=== PATIENT | female | born 2000 | race Caucasian/White ===

== ENCOUNTER 2021-02-03 11:42 | Observation (INO) | payer SELFPAY ==
[2021-02-03 12:08] VITALS: BP 112/53; PULSE 70
[2021-02-03 12:15] VITALS: BP 113/60; PULSE 99
[2021-02-03 12:30] VITALS: BP 107/55; PULSE 73
[2021-02-03 12:38] LABS: Add Urine Microscopic? YES; Amorphous Sediment Urine Few; Appearance Urine Cloudy (Clear); Bacteria Urine Trace /hpf; Bilirubin Urine Negative (Negative); Blood Urine Negative (Negative); Color Urine Yellow (Yellow); Glucose Urine UA Negative (Negative); Ketones Urine Negative (Negative); Leukocyte Esterase Ur 3+ LEU/UL (NEGATIVE); Mucus Urine Rare /lpf; Nitrate Urine Negative (Negative); Protein Urine 1+ mg/dL (Negative); Specific Grav Ur 1.011 (1.001-1.035); Squamous Epithelial Cell Urine Many /hpf (Few); Urobilinogen Urine Negative mg/dL (<2.0); WBC Urine 31-50 /hpf (0-3)
[2021-02-03 12:45] VITALS: BP 96/59; PULSE 80
[2021-02-03 13:00] VITALS: BP 101/59; PULSE 76
[2021-02-03 13:06] VITALS: BMI 21.7
[2021-02-03 13:15] VITALS: BP 102/57; PULSE 83
--- NOTE | 2021-02-03 13:41 | PC.NURSE ---
ncervix is closed and soft
--- NOTE | 2021-02-05 10:50 | P.PNOB_ITS ---
OB - Triage/Final Diagnosis Visit Information Reason for evaluation: threatened labor Comments/Additional reasons for admission: I have assessed the risk for this patient, Lorri Ernandez, and determined that she would benefit from observation care. Evaluation Laboratory results: Laboratory Tests 02/03/21 12:17 Urine Color Yellow Urine Appearance Cloudy H Urine pH 9.0 Ur Specific [place] 1.011 Urine Protein 1+ H Urine Glucose (UA) Negative Urine Ketones Negative Ur Blood (Man) Negative Urine Nitrate Negative Urine Bilirubin Negative Urine Urobilinogen Negative Ur Leukocyte Esterase 3+ H Urine RBC 3-5 H Urine WBC 31-50 H Ur Squamous Epith Cells Many H Amorphous Sediment Few H Urine Bacteria Trace Urine Mucus Rare
== END 2021-02-03 13:34 | disposition home or self-care (01) ==
PROVIDERS: Admitting Provider Obstetrics & Gynecology; Visit Provider Obstetrics & Gynecology Gynecology
DX: O47.9 False labor, unspecified (principal); Z3A.00 Weeks of gestation of pregnancy not specified
CPT/HCPCS: 81001; 87086; G0378; G0379

== ENCOUNTER 2021-02-07 09:58 | Outpatient (RCR) | payer OTHER, SELFPAY ==
[2021-02-07 11:29] LABS: Hematocrit 28.4 % (37.0-47.0); Hemoglobin 9.3 g/dL (12.0-15.0)
[2021-02-07 11:44] LABS: Glucose 1 Hour PP 50gm Dose 134 mg/dL
[2021-02-07 12:08] LABS: Vitamin D 25 Hydroxy 28.8 ng/mL
[2021-02-07 12:21] LABS: HIV 1/2 Ab P24 Ag Result Negative (Negative)
[2021-02-07] MEDS: RHO(D) IMMUNE GLOBULIN 300 MCG/2 ML SYRINGE IM (16:24)
== END 2021-05-08 23:59 | disposition home or self-care (01) ==
LOC: ANHLAB 09:58
PROVIDERS: Visit Provider Obstetrics & Gynecology Gynecology
DX: Z29.13 Encounter for prophylactic Rho(D) immune globulin (principal); Z11.4 Encounter for screening for human immunodeficiency virus [HIV]; O36.0130 Maternal care for anti-D [Rh] antibodies, third trimester, not applicable or unspecified; Z3A.00 Weeks of gestation of pregnancy not specified
CPT/HCPCS: 36415; 82306; 82947; 85014; 85018; 85461; 86703; 90384; 96372; G0432; J2790

== ENCOUNTER 2021-02-15 10:51 | Observation (INO) | payer OTHER, SELFPAY ==
--- NOTE | ~2021-02-15 | US_ITS ---
EXAMINATION: US OB limited w BPP DATE: 02/15/2021 14:01 INDICATION: Decelerations during third trimester TECHNIQUE: Real-time pelvic ultrasound was performed. The interpreting radiologist was not present fo r the study. COMPARISON: None. FINDINGS: There is a single living fetus in vertex presentation. The placenta is anterior. heart rate is 149 beats per minute (bpm). The amniotic fluid index is 19.5 cm which is normal (normal range: 9.2 cm to 23.1 cm). Biophysical profile performed by the technologist: breathing (30 sec sustained breathing in 30 minutes): 2 out of 2 movement (3 gross body movements in 30 minutes): 2 out of 2 tone (one episode of ornelip-irjyxltfo-jdblppi limb movement): 2 out of 2 Amniotic fluid pocket (2 cm): 2 out of 2 Total score: 8 out of 8 IMPRESSION: 1. Single living fetus in vertex presentation. 2. Biophysical profile 8 out of 8. 3. Normal amniotic fluid index. Reviewed, dictated and finalized at location B.
[2021-02-15 11:00] VITALS: TEMP 37.2
[2021-02-15 11:13] VITALS: BP 111/62; PULSE 98
[2021-02-15 11:15] VITALS: BP 104/57; PULSE 98
[2021-02-15 11:30] VITALS: BP 116/69; PULSE 113
[2021-02-15 11:45] VITALS: BP 115/61; PULSE 108
[2021-02-15 12:00] VITALS: BP 119/60; PULSE 97
[2021-02-15 12:43] LABS: Add Urine Microscopic? YES; Amorphous Sediment Urine Few; Appearance Urine Cloudy (Clear); Bacteria Urine Trace /hpf; Bilirubin Urine Negative (Negative); Blood Urine Negative (Negative); Color Urine Yellow (Yellow); Glucose Urine UA Negative (Negative); Ketones Urine Negative (Negative); Leukocyte Esterase Ur 3+ LEU/UL (Negative); Mucus Urine Rare /lpf; Nitrate Urine Negative (Negative); Protein Urine Negative (Negative); RBC Urine 0-2 /hpf (0-2); Specific Grav Ur 1.013 (1.001-1.035); Squamous Epithelial Cell Urine Few /hpf (Few); WBC Urine 16-20 /hpf
--- NOTE | 2021-02-15 13:35 | PC.NURSE ---
1324- called,read lab results and informed of wondering baseline and questionable decel. JOHNY and BPP ordered.
--- NOTE | 2021-02-15 14:43 | OBADM ---
This patient, Lorri Ernandez, admitted to the OB room OB Post 116 for observation. Patient/family oriented to hospital policies and general routines including ID bracelet, bed and alarms, visiting hours, pain management, procedures, bathroom and other care routines, personal items, smoking policy, room service/diet, and visiting hours. Patient/Family are encouraged to report perceived risks to care and to ask questions if they do not understand what they are told or what they should do.
--- NOTE | 2021-02-28 09:32 | PM.OBTRLD ---
OB - Triage/Final Diagnosis Visit Information Comments/Additional reasons for admission: I have assessed the risk for this patient, Lorri Ernandez, and determined that she would benefit from observation care. Evaluation Laboratory results: Laboratory Tests 02/15/21 12:23 Urine Color Yellow Urine Appearance Cloudy H Urine pH 7.0 Ur Specific [place] 1.013 Urine Protein Negative Urine Glucose (UA) Negative Urine Ketones Negative Ur Blood (Man) Negative Urine Nitrate Negative Urine Bilirubin Negative Urine Urobilinogen 2.0 H Leukocyte Esterase Rfl 3+ H Urine RBC 0-2 Urine WBC 16-20 H Ur Squamous Epith Cells Few Amorphous Sediment Few H Urine Bacteria Trace Urine Mucus Rare Final Diagnosis (1) contractions: Code(s): O47.00 - False labor before 37 completed weeks of gestation, unspecified trimester Status: Acute
== END 2021-02-15 14:55 | disposition home or self-care (01) ==
PROVIDERS: Admitting Provider Obstetrics & Gynecology; Visit Provider Obstetrics & Gynecology
DX: O60.00 Preterm labor without delivery, unspecified trimester (principal); Z3A.00 Weeks of gestation of pregnancy not specified
CPT/HCPCS: 76815; 76819; 81001; 87086; G0378; G0379

== ENCOUNTER 2021-02-18 07:04 | Outpatient (CLI) | payer OTHER, SELFPAY ==
[2021-02-18 07:42] LABS: Glucose Fasting Gestational 77 mg/dL (>/=95)
== END 2021-02-18 07:05 | disposition home or self-care (01) ==
LOC: ANHLAB 07:07
PROVIDERS: Visit Provider Obstetrics & Gynecology
DX: Z34.90 Encounter for supervision of normal pregnancy, unspecified, unspecified trimester (principal); Z3A.00 Weeks of gestation of pregnancy not specified
CPT/HCPCS: 36415; 82951; 82952

== ENCOUNTER 2021-03-11 12:24 | Outpatient (CLI) | payer OTHER, SELFPAY ==
--- NOTE | ~2021-03-11 | US_ITS ---
US right upper quadrant DATE: 03/11/2021 12:44 INDICATION: Right upper quadrant abdominal pain TECHNIQUE: Real-time imaging and Doppler analysis of the liver, pancreas, gallbladder areas COMPARISON: None FINDINGS: No hepatic space-occupying mass lesion is evident. Normal hepatopedal portal venous flow di rection. A several millimeter fixed filling defect of the gallbladder is likely a small polyp. No mobile galls tones are noted. Negative sonographic Adames's sign. The common bile duct measures 3 mm, normal. The pancreas appears unremarkable. Moderately prominent right hydronephrosis; gravid patient. IMPRESSION: Moderately prominent right-sided hydronephrosis, likely due to gravid state. Less likely consideration in the differential diagnosis would be an obstructing ureteral calculus Small gallbladder polyp; otherwise unremarkable examination Reviewed, dictated and finalized at Location A. Reviewed, dictated and finalized at location A. IMPRESSION: Moderately prominent right-sided hydronephrosis, likely due to grav id state. Less likely consideration in the differential diagnosis would be an o bstructing ureteral calculus Small gallbladder polyp; otherwise unremarkable examination
== END 2021-03-11 12:25 ==
PROVIDERS: Visit Provider Obstetrics & Gynecology Gynecology
DX: R10.11 Right upper quadrant pain (principal); N13.30 Unspecified hydronephrosis; K82.4 Cholesterolosis of gallbladder
CPT/HCPCS: 76705

== ENCOUNTER 2021-03-23 12:23 | Observation (INO) | payer SELFPAY ==
[2021-03-23] VITALS (92 sets, daily range): BP systolic 90–116; BP diastolic 41–71; PULSE 25–278; TEMP 36.6–37.1; O2SAT 96–100; BMI 23.2
--- NOTE | 2021-03-23 13:11 | OBADM ---
This patient, Lorri Ernandez, admitted to the OB room 117 for observation for contractions. Patient/family oriented to hospital policies and general routines including ID bracelet, bed and alarms, visiting hours, pain management, procedures, bathroom and other care routines, personal items, smoking policy, room service/diet, and visiting hours. Patient/Family are encouraged to report perceived risks to care and to ask questions if they do not understand what they are told or what they should do.
[2021-03-23 13:22] LABS: Add Urine Microscopic? YES; Appearance Urine Cloudy (Clear); Bacteria Urine Trace /hpf; Bilirubin Urine Negative (Negative); Blood Urine Negative (Negative); Color Urine Yellow (Yellow); Glucose Urine UA Negative (Negative); Ketones Urine Negative (Negative); Leukocyte Esterase Ur 3+ LEU/UL (Negative); Mucus Urine Rare /lpf; Nitrate Urine Negative (Negative); Protein Urine 1+ mg/dL (Negative); Specific Grav Ur 1.018 (1.001-1.035); Squamous Epithelial Cell Urine Many /hpf (Few); WBC Urine 31-50 /hpf
--- NOTE | 2021-03-23 13:52 | PC.NURSE ---
Dr. Johnson returned page and informed of pt's arrival at 34 2/7 wks gestation with c/o contractions since 0500 today. Denies leakage of fluid and vaginal bleeding. Informed of contraction pattern that pt rates as a 9 out of 10. Discussed pt's history of tachycardia. Orders received.
[2021-03-23] MEDS: NIFEdipine 10 MG CAPSULE PO ×3 (14:08→15:25)
--- NOTE | 2021-03-23 15:45 | PC.NURSE ---
Dr. Johnson on unit and informed pt still carolyn, but intensity has decreased from a 9 to a 5. Reviewed UA results and pt c/o urinary frequency. Informed pt c/o headache since Procardia. Orders received.
[2021-03-23] MEDS: ACETAMINOPHEN 500 MG TABLET 1000 MG PO (15:50)
[2021-03-23] MEDS: NITROFURANTOIN MONOHYD MACROCR 100 MG CAP PO (15:51)
--- NOTE | 2021-03-23 17:25 | PC.NURSE ---
Dr. Johnson returned page and informed of increase in contractions when pt sat up. Orders received for IV hydration.
[2021-03-23] MEDS: DEXTROSE 5%/LACTATED RINGERS 1,000 ML 999 ML IV CONT (18:10)
--- NOTE | 2021-03-23 20:07 | PC.NURSE ---
Dr. Johnson returned page and informed of decrease in contractions since IV fluids. Pt no longer feeling any contractions and has been sleeping. Order for discharge received.
--- NOTE | 2021-05-19 12:12 | P.PNOB_ITS ---
OB - Triage/Final Diagnosis Visit Information Comments/Additional reasons for admission: I have assessed the risk for this patient, Lorri Ernandez, and determined that she would benefit from observation care. Evaluation Laboratory results: Laboratory Tests 03/23/21 12:56 Urine Color Yellow Urine Appearance Cloudy H Urine pH 6.0 Ur Specific [place] 1.018 Urine Protein 1+ H Urine Glucose (UA) Negative Urine Ketones Negative Ur Blood (Man) Negative Urine Nitrate Negative Urine Bilirubin Negative Urine Urobilinogen 4.0 H Leukocyte Esterase Rfl 3+ H Urine RBC 6-10 H Urine WBC 31-50 H Ur Squamous Epith Cells Many H Urine Bacteria Trace Urine Mucus Rare Final Diagnosis (1) contractions: Code(s): O47.00 - False labor before 37 completed weeks of gestation, unspecified trimester Status: Acute
== END 2021-03-23 20:44 | disposition home or self-care (01) ==
PROVIDERS: Admitting Provider Obstetrics & Gynecology; Visit Provider Obstetrics & Gynecology
DX: O47.03 False labor before 37 completed weeks of gestation, third trimester (principal); Z3A.34 34 weeks gestation of pregnancy
CPT/HCPCS: 81001; 87086; 96360; 96361; A9270; G0378; G0379; J7121

== ENCOUNTER 2021-03-27 19:00 | Observation (INO) | payer SELFPAY ==
[2021-03-27 19:18] VITALS: BP 122/69; PULSE 94
[2021-03-27 19:30] VITALS: BP 110/67; PULSE 100; BMI 22.9
[2021-03-27 19:45] VITALS: BP 112/70; PULSE 91
--- NOTE | 2021-03-27 19:55 | OBADM ---
This patient, Lorri Ernandez, admitted to the OB room OB Post 113 for observation. Patient/family oriented to hospital policies and general routines including ID bracelet, bed and alarms, visiting hours, pain management, procedures, bathroom and other care routines, personal items, smoking policy, room service/diet, and visiting hours. Patient/Family are encouraged to report perceived risks to care and to ask questions if they do not understand what they are told or what they should do.
[2021-03-27 20:00] VITALS: BP 112/70; PULSE 97
[2021-03-27 20:15] VITALS: BP 105/62; PULSE 90
[2021-03-27 20:46] VITALS: BP 99/42; PULSE 74
--- NOTE | 2021-04-04 08:17 | PM.OBTRLD ---
OB - Triage/Final Diagnosis Visit Information Reason for evaluation: threatened labor Comments/Additional reasons for admission: I have assessed the risk for this patient, Lorri Berger Awais, and determined that she would benefit from observation care.
== END 2021-03-27 20:55 | disposition home or self-care (01) ==
PROVIDERS: Admitting Provider Obstetrics & Gynecology Gynecology; Visit Provider Obstetrics & Gynecology Gynecology
DX: O47.9 False labor, unspecified (principal); Z3A.00 Weeks of gestation of pregnancy not specified
CPT/HCPCS: 84112; G0378; G0379

== ENCOUNTER 2021-04-07 17:31 | Observation (INO) | payer SELFPAY ==
[2021-04-07 20:10] VITALS: BMI 23.8
--- NOTE | 2021-04-07 20:10 | OBADM ---
This patient, Lorri Ernandez, admitted to the OB room Labor/Delivery/Recovery 107 for observation at 1731. Patient/family oriented to hospital policies and general routines including ID bracelet, bed and alarms, visiting hours, pain management, procedures, bathroom and other care routines, personal items, smoking policy, room service/diet, and visiting hours. Patient/Family are encouraged to report perceived risks to care and to ask questions if they do not understand what they are told or what they should do.
== END 2021-04-07 20:20 | disposition home or self-care (01) ==
PROVIDERS: Admitting Provider Obstetrics & Gynecology Gynecology; Visit Provider Obstetrics & Gynecology Gynecology
DX: O47.03 False labor before 37 completed weeks of gestation, third trimester (principal); Z3A.36 36 weeks gestation of pregnancy
CPT/HCPCS: G0378; G0379

== ENCOUNTER 2021-04-10 20:09 | Observation (INO) | payer OTHER, SELFPAY ==
--- NOTE | 2021-04-10 20:09 | OBADM ---
This patient, Lorri Ernandez, admitted to the OB room Labor/Delivery/Recovery 107 for observation. Patient/family oriented to hospital policies and general routines including ID bracelet, bed and alarms, visiting hours, pain management, procedures, bathroom and other care routines, personal items, smoking policy, room service/diet, and visiting hours. Patient/Family are encouraged to report perceived risks to care and to ask questions if they do not understand what they are told or what they should do.
[2021-04-10 22:41] VITALS: BMI 23.8
[2021-04-10 22:51] VITALS: RESP 18
== END 2021-04-10 22:51 | disposition home or self-care (01) ==
PROVIDERS: Admitting Provider Obstetrics & Gynecology; Visit Provider Obstetrics & Gynecology
DX: O47.03 False labor before 37 completed weeks of gestation, third trimester (principal); Z3A.36 36 weeks gestation of pregnancy
CPT/HCPCS: G0378; G0379

== ENCOUNTER 2021-04-28 06:20 | Inpatient (IN) | payer OTHER, SELFPAY ==
[2021-04-28] VITALS (113 sets, daily range): BP systolic 101–146; BP diastolic 60–106; PULSE 65–160; RESP 16–18; TEMP 36.5–37.2; O2SAT 76–100; BMI 23.3
[2021-04-28 07:08] LABS: Basophils Absolute Auto 0.1 K/mm3 (0.0-0.1); Basophils Percent Auto 0.5 % (0.2-1.2); Eosinophils Absolute Auto 0.1 K/mm3 (0-0.3); Eosinophils Percent Auto 1.2 % (0-4.4); Hematocrit 28.5 % (37.0-47.0); Immature Granulocyte Absolute 0.13 K/mm3 (0.00-0.031); Immature Granulocyte Percent A 1.2 % (0-0.5); Lymphocytes Absolute Auto 2.21 K/mm3 (0.9-3.2); Lymphocytes Percent Auto 19.6 % (18.3-44.2); Mean Corpuscular HGB Conc 31.6 g/dl (32-36); Mean Corpuscular Hemoglobin 25.3 pg (26-34); Mean Corpuscular Volume 80.1 fl (80-100); Mean Platelet Volume 8.8 fl (7.4-10.4); Monocytes Absolute Auto 1.1 K/mm3 (0.1-0.6); Monocytes Percent Auto 9.5 % (2.6-8.5); Neutrophils Absolute Auto 7.7 K/mm3 (1.3-6.7); Platelet Count Result 340 k/mm3 (150-375); Red Blood Count 3.56 M/mm3 (4.2-5.4); Red Cell Distribution Width 14.7 % (11.5-14.5); White Blood Count 11.3 K/mm3 (4.5-10.0)
[2021-04-28] MEDS: OXYTOCIN 30 UNITS/NS 500 ML 30 UNITS/500 ML BAG 6 UNITS IV CONT ×2 (07:13→14:45)
[2021-04-28] MEDS: LACTATED RINGERS 1,000 ML 125 ML IV CONT ×2 (07:14→07:51)
--- NOTE | 2021-04-28 07:27 | WPDOBADMIT ---
Obstetrics - Admit Note Admission Note: record reviewed. No pertinent additions to the history and/or any subsequent changes in the physical findings that are not consistent with the expected course of the were found. Additions to the history and/or subsequent changes in the physical findings follow. None. Admitted for MIL. Cervix 4-5/50/-2 AROM with clear fluid. FHTs reactive.
[2021-04-28] MEDS: OXcarbazepine 150 MG TABLET PO ×2 (08:01→21:34)
--- NOTE | 2021-04-28 08:36 | WPDANESEPPF ---
Anes - Initial Pre Proc Eval Procedure: labor epidural Date/Time: 04/28/21 08:36 Surgeon: Zo Merchant MD Pre Op Diagnosis: labor pain Pre Op Diagnosis: induction Patient Data Age: 20 Gender: F Height: 1.59 m Weight: 59 kg Last Vital Signs Pulse 75 04/28/21 08:30 BP 135/89 04/28/21 08:30 Pulse Ox 100 04/28/21 08:35 Allergies Allergy/AdvReac Type Severity Reaction Status Date / Time ceftriaxone [From Rocephin] Allergy Numbness Verified 02/07/21 16:24 Penicillins Allergy Swelling Verified 02/07/21 16:24 of Lip/Tongue/Throat Home Medications Medication Instructions Recorded Confirmed Type PNV cmb#95-ferrous fumarate-FA 1 tablet PO DAILY 03/23/21 04/01/21 History [] ferrous sulfate 325 mg PO HS 03/23/21 04/01/21 History oxcarbazepine 150 mg PO BID 03/23/21 04/01/21 History Laboratory Tests 04/28/21 04/28/21 04/28/21 06:56 06:56 06:56 WBC 11.3 K/mm3 H K/mm3 (4.5-10.0) RBC 3.56 M/mm3 L M/mm3 (4.2-5.4) Hgb 9.0 g/dL L g/dL (12.0-15.0) Hct 28.5 % L % (37.0-47.0) MCV 80.1 fl fl (80-100) MCH 25.3 pg L pg (26-34) MCHC 31.6 g/dl L g/dl (32-36) RDW 14.7 % H % (11.5-14.5) Plt Count 340 k/mm3 k/mm3 (150-375) MPV 8.8 fl fl (7.4-10.4) Immature Gran % (Auto) 1.2 % H % (0-0.5) Neut % (Auto) 68.0 % % (45.5-73.1) Lymph % (Auto) 19.6 % % (18.3-44.2) [place] % (Auto) 9.5 % H % (2.6-8.5) Eos % (Auto) 1.2 % % (0-4.4) Baso % (Auto) 0.5 % % (0.2-1.2) Lymph # (Auto) 2.21 K/mm3 K/mm3 (0.9-3.2) [place] # (Auto) 1.1 K/mm3 H K/mm3 (0.1-0.6) Eos # (Auto) 0.1 K/mm3 K/mm3 (0-0.3) Baso # (Auto) 0.1 K/mm3 K/mm3 (0.0-0.1) Abs Immat Gran (auto) 0.13 K/mm3 H K/mm3 (0.00-0.031) Absolute Neuts (auto) 7.7 K/mm3 H K/mm3 (1.3-6.7) Absolute Nucleated RBC 0.0 K/mm3 K/mm3 (0.0-0.012) Nucleated RBC % 0.0 % % (0.0-0.2) RPR Pending Blood Type A Negative Antibody Screen Negative Patient hx anesthesia problems: none Family hx anesthesia problems: none PMFSH Past Medical History Medical History (Updated 04/28/21 @ 08:36 by Danny Dey DO) Epilepsy POTS (postural orthostatic tachycardia syndrome) early contractions Family History Family History (Updated 04/01/21 @ 15:37 by Bárbara Kumar RN) Sibling Autism Heart murmur Mother Epilepsy Heart murmur Social History Social History Smoking status: Never smoker Second hand tobacco smoke exposure: No Substance use: never Gender identity (if verbalized by the patient): Female Spiritual care concerns: No Anes - Eval Final PreProcedure Day of Procedure 04/28/21 08:36 Patient weight: normal ASA classification: III Anesthesia type and monitoring: regional epidural and standard monitoring Informed Consent: The patient's anesthetic plan and its attendant risks and benefits were discussed with the patient/family/POA. Questions were solicited and answers provided to the satisfaction of the patient/family/POA.
--- NOTE | 2021-04-28 14:15 | PM.OBPRVD ---
OB - Delivery Note Procedure Delivery date: 04/28/21 Procedure: events: Labor Induction Intrapartal events: None Induction method: AROM and per pitocin protocol Delivery monitor: external FHT and external uterine Route of delivery: Laceration Description: Periurethral (B) and Perineal - 1st Degree Delivery repair: vicryl (3-0 ) Specimen: No Quantitative Blood Loss (ml): 225 Anesthesia type: Epidural Disposition: floor Baby Date of : 04/28/21 Weeks of gestation at delivery: 39 gender: Female presentation: vertex position: Right Occiput Anterior Placenta delivery description: Spontaneous cord vessel description: 3 Vessels score one minute: 9 score five minutes: 9
--- NOTE | 2021-04-28 14:16 | P.DS_ITS ---
DS: Admitting Diagnosis Discharge Date 04/30/21 Admitting Diagnosis IUP 39 wks MIL DS: Discharge Diagnosis Discharge Diagnosis (1) (normal spontaneous vaginal delivery): Code(s): O80 - Encounter for full-term uncomplicated delivery Status: Acute OB - DS: Summary OB Procedures : Ultrasound OB Procedures Intrapartum: Spontaneous Vag Delivery OB Procedures: : None Peripartum Data Infant Delivery Method: Natural Vaginal Laceration Description: Periurethral (B) and Perineal - 1st Degree complications: none Status at Discharge Functional status at discharge: independent ambulation Overall status at discharge: patient is progressing back to baseline Time Spent with Patient Time attestation: Total time spent providing and/or coordinating discharge services: DS: Data Data Completed and Pending Labs on day of discharge: Labs from last 24 hours 04/28/21 04/28/21 04/28/21 06:56 06:56 06:56 WBC 11.3 H RBC 3.56 L Hgb 9.0 L Hct 28.5 L MCV 80.1 MCH 25.3 L MCHC 31.6 L RDW 14.7 H Plt Count 340 MPV 8.8 Immature Gran % (Auto) 1.2 H Neut % (Auto) 68.0 Lymph % (Auto) 19.6 [place] % (Auto) 9.5 H Eos % (Auto) 1.2 Baso % (Auto) 0.5 Lymph # (Auto) 2.21 [place] # (Auto) 1.1 H Eos # (Auto) 0.1 Baso # (Auto) 0.1 Abs Immat Gran (auto) 0.13 H Absolute Neuts (auto) 7.7 H Absolute Nucleated RBC 0.0 Nucleated RBC % 0.0 RPR Pending Blood Type A Negative Antibody Screen Negative Discharge Plan Discharge Attending physician on discharge: Zo Merchant Discharging Clinician: Zo Merchant Anticipated Discharge Date/Time: 04/30/21 14:17 Patient Disposition: Home, Self-Care Activity: may shower and pelvic rest Diet: regular Patient Instructions: Antibiotic Form Stand Alone Forms: General Discharge Information Follow-up/Referrals: Zo Merchant MD [Physician] - 6 Weeks Discharge Medications: Continued oxcarbazepine 150 mg Tablet 150 mg PO BID RF: 0 PNV cmb#95-ferrous fumarate-FA [] 28 mg iron- 800 mcg Tablet 1 tablet PO DAILY RF: 0 ferrous sulfate 325 mg (65 mg iron) Tablet 325 mg PO HS RF: 0 Date of admission: 04/28/21 06:20 Primary Care Provider: PHYSICIAN,BUSINESS OFFICE SPECIALIST Admitting Provider: Zo Merchant Attending physician on admission: Zo Merchant Condition: Stable Care Plan Goals: Follow up at week 3 for Nexplanon
[2021-04-28] MEDS: COSYNTROPIN 0.25 MG/ML VIAL 0.75 MG IV PUSH (15:00)
--- NOTE | 2021-04-28 16:53 | OBPPTRN ---
Patient transferred to post room # 281 via wheelchair. Support person present. Oriented to unit, room, information board, rooming in, admission packet and security measures. Patient verbalizes understanding. PT received instructions and education this shift via one to one discussion, mom baby care guide and demonstration. mom and spouse both recipients of such instructions and no barriers to learning identified at this time.
[2021-04-28] MEDS: ACETAMINOPHEN 325 MG TABLET 650 MG PO (18:31)
[2021-04-28] MEDS: POLYSACCHARIDE IRON COMPLEX 150 MG CAPSULE PO (18:32)
[2021-04-28] MEDS: BENZOCAINE 20% AER SPR (*SP) 56 GM CAN 1 SPRAY TOPICAL (18:32)
[2021-04-28] MEDS: WITCH HAZEL 40 PADS 1 PAD TOPICAL (18:32)
[2021-04-28] MEDS: IBUPROFEN 600 MG TABLET PO (18:33)
[2021-04-28] MEDS: DOCUSATE SODIUM 100 MG CAPSULE PO (18:33)
[2021-04-29] MEDS: IBUPROFEN 600 MG TABLET PO ×3 (03:55→17:48)
[2021-04-29 04:27] LABS: Hematocrit 24.1 % (37.0-47.0); Hemoglobin 7.7 g/dL (12.0-15.0)
[2021-04-29 04:42] VITALS: BP 102/60; PULSE 80; RESP 18; TEMP 36.6; O2SAT 98
--- NOTE | 2021-04-29 07:16 | PM.OBPNVD ---
OB - PN: Subj Subjective Date/time seen: 04/29/21 07:16 Patient comments: no complaints and pain well controlled baby status: doing well OB - PN: Obj Data Labs CBC & Chem 7: 04/29/21 03:48 Labs: Laboratory Results - last 24 hr 04/28/21 04/29/21 04/29/21 06:56 03:48 03:48 Hgb 7.7 L Hct 24.1 L Blood Type A Negative A Negative Antibody Screen Negative Negative Screen Negative Baby's Blood Type O pos Baby's CHRIS Negative Doses of RhIg Required 1 OB - PN A/P Plan day: 1 Plan: routine care Time Spent With Patient Time: Total time spent is greater than 50% in coordination of care (as documented) at patient's floor/unit and/or counseling patient: Exam : Bimanual exam- vagina & uterus: other (Uterus firm, nt @U)
[2021-04-29 08:20] VITALS: BP 118/67; PULSE 76; RESP 18; TEMP 36.4; O2SAT 100
--- NOTE | 2021-04-29 09:15 | PC.NURSE ---
Mother called out for assist with feeding. Mother reports infant is sleepy and makes eager attempts to latch with short bursts of nursing and will then fall asleep. Mother reports she has been attempting for 10-15 minutes without success. Reviewed feeding cues, frequencies, duration of feedings, feeding elimination flow sheet, and signs of adequate intake. Demonstrated stimulation techniques to wake infant for feeding. Assisted with to breast. Reviewed positioning/alignment in cross cradle, holding breast in ?U? hold and guided asymmetrical latch on. Reviewed rational for each. able to latch correctly within a few attempts. Once latched made a weak effort to suckle with a few short draws and then fell asleep with nipple in mouth. Infant stimulated to wake with to return to breast with same results. Several attempts to wake to latch without latch. has not fed for 6+ hours, parents are concerned. Feeding options reviewed to supplement 10-15 mls or have mother pump and give EBM + formula if needed. Parents would like infant fed at this time and mother will pump for next feeding if needed. Instructed mother to call out for RN assistance if she is unable to latch for feeding or she has discomfort with nursing. Instructed feeding should be initiated three hours from start of last feeding or if feeding cues are noted before. Mother voiced understanding of information shared.
[2021-04-29] MEDS: MULTIVIT/MIN/PREN/FOL AC/IRON TABLET 1 TAB PO (09:28)
[2021-04-29] MEDS: POLYSACCHARIDE IRON COMPLEX 150 MG CAPSULE PO ×2 (09:28→17:48)
[2021-04-29] MEDS: OXcarbazepine 150 MG TABLET PO ×2 (09:28→21:37)
[2021-04-29] MEDS: DOCUSATE SODIUM 100 MG CAPSULE PO ×2 (09:28→17:48)
--- NOTE | 2021-04-29 09:40 | PC.NURSE ---
Mother would like to use her breastpump from home. Instructions given on breast pump care and usage, pumping schedule, nipple care, and collection and storage of breast milk. Encouraged [id number], breast massage and manual expression to stimulate supply. Assessed patient for correct flange size, placement and draw. Patient verbalizes and demonstrates understanding of instructions. Suggested mother use hospital pump for correct flange size, mother will use next feeding.
--- NOTE | 2021-04-29 09:46 | WPDANLDPN2 ---
Anes-Prog Note L&D Date/Time: 04/29/21 09:46 Comfortable throughout: labor and delivery Neuraxial method: epidural Epidural/Spinal procedure site: clean & non-tender Neuro status: Neuro function grossly intact. Cardiovascular status: normal Respiratory status: normal Airway patency: baseline Mental status: baseline Post-Op hydration status: normal Vital Signs: Last Vital Signs Temp 36.4 C 04/29/21 08:20 Pulse 76 04/29/21 08:20 Resp 18 04/29/21 08:20 BP 118/67 04/29/21 08:20 Pulse Ox 100 04/29/21 08:20 Pain score (VAS): 7/10 Post-procedural complaints: other (Headache- Bilateral temporal headache 7/10 sitting up, 10/10 lying flat. Photophopia. ) Patient feedback: Patient satisfied with anesthetic care. 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 Pt instructed to contact the anesthesia department if she wishes to proceed with epidural blood patch Other findings: Discussed epidural blood patch vs conservative treatment for suspected PDPH
[2021-04-29 10:40] LABS: Rapid Plasma Reagin Non-Reactive (NonReactive)
[2021-04-29] MEDS: RHO(D) IMMUNE GLOBULIN 300 MCG/2 ML SYRINGE IM (11:29)
[2021-04-29 12:34] VITALS: BP 113/60; PULSE 82; RESP 16; TEMP 37.3; O2SAT 99
--- NOTE | 2021-04-29 14:30 | P.PCNANE_ITS ---
Anes - Epidural Blood Patch PN Date/Time: 04/29/21 14:30 Consent: I have discussed with the patient/family/POA, the rationale of a lumbar epidural autologous blood patch for the treatment of post-dural puncture headache (spinal headache), including associated potential risks, benefits, comp lications and side effects. I have also discussed more conservative treatment options such as intravenous hydration, caffeine and non-prescription analgesics. The patient/family/POA, understand(s) and wish(es) to proceed with epidural autologous blood patch as treatment for the patient's post-dural puncture headache. Time-Out: A pre-procedural Time-Out was completed immediately before starting the procedure and confirmed: Patient Identification, Site, Procedure, Patient Position and the Availability of Requisite Equipment. Clinical Indications: PDPH Epidural Insertion Note Patient position: sitting Skin prep: chlorhexidine Needle: 18 gauge Tuohy-Schliff Technique: loss of resistance Skin anesthesia: lidocaine 1% Observations: tolerated well Complications: none
--- NOTE | 2021-04-29 15:37 | PC.NURSE ---
Assisted mother with a pump thru her insurance, set up and reviewed. Mother is unable to sit up to pump at this time. Instructed to attempt to have RN asses for 21 or 24mm flanges, advised to bere lanolin to nipples and areola before pumping. Instructions given on breast pump care and usage, pumping schedule, nipple care, and collection and storage of breast milk. Encouraged [id number], breast massage and manual expression to stimulate supply.
[2021-04-29 19:46] VITALS: BP 111/65; PULSE 81; RESP 16; TEMP 36.6; O2SAT 100
--- NOTE | 2021-04-29 21:40 | PC.NURSE ---
Patient viewed the discharge video Mother & Baby Care, The First Two Weeks . Patient was given the opportunity and encouraged to ask questions. Patient verbalized understanding of information shared and has been given the mother/baby guide for home reference.
--- NOTE | 2021-04-30 09:25 | PM.OBPNVD ---
OB - PN: Subj Subjective Date/time seen: 04/30/21 09:25 Patient comments: no complaints and pain well controlled baby status: doing well OB - PN: Obj Data Labs CBC & Chem 7: 04/29/21 03:48 Labs: Laboratory Results - last 24 hr 04/28/21 04/29/21 06:56 03:48 RPR Non-reactive Blood Type A Negative Antibody Screen Negative Screen Negative Baby's Blood Type O pos Baby's CHRIS Negative Doses of RhIg Required 1 OB - PN A/P Plan day: 2 Plan: routine care, discharge home and other (Nexplanon at week 3) Time Spent With Patient Time: Total time spent is greater than 50% in coordination of care (as documented) at patient's floor/unit and/or counseling patient: Exam : Bimanual exam- vagina & uterus: other (Uterus firm, nt @U)
[2021-04-30] MEDS: MULTIVIT/MIN/PREN/FOL AC/IRON TABLET 1 TAB PO (09:33)
[2021-04-30] MEDS: POLYSACCHARIDE IRON COMPLEX 150 MG CAPSULE PO (09:33)
[2021-04-30] MEDS: OXcarbazepine 150 MG TABLET PO (09:34)
[2021-04-30 09:35] VITALS: BP 126/82; PULSE 82; RESP 16; TEMP 36.8; O2SAT 100
[2021-05-03 09:31] VITALS: BP 118/74; PULSE 90; RESP 16; TEMP 37.3; O2SAT 100
== END 2021-04-30 12:57 | disposition home or self-care (01) | DRG 807 ==
LOC: ANHLDR 14:17 → ANHOB2 16:58
PROVIDERS: Admitting Provider Obstetrics & Gynecology Gynecology; Visit Provider Obstetrics & Gynecology Gynecology
DX: O99.354 Diseases of the nervous system complicating childbirth (principal); Z37.0 Single live birth; Z3A.39 39 weeks gestation of pregnancy; G40.909 Epilepsy, unspecified, not intractable, without status epilepticus; O70.0 First degree perineal laceration during delivery; O71.82 Other specified trauma to perineum and vulva; O89.4 Spinal and epidural anesthesia-induced headache during the puerperium
CPT/HCPCS: 36415; 85014; 85018; 85025; 85461; 86592; 86850; 86900; 86901; 90384; A9270; J0834; J2590; J2790; J2795; J7120

== ENCOUNTER 2021-10-21 18:43 | Emergency (ER) | payer OTHER, BC, SELFPAY ==
--- NOTE | ~2021-10-21 | XR_ITS ---
XR shoulder LT min 2V, XR scapula LT 10/21/2021 20:05 Indication: Left shoulder pain after trauma Procedure: 4 views left shoulder and 2 views left scapula Comparison: No prior studies for comparison. Findings: No fracture, subluxation or dislocation. No significant soft tissue abnormality. No foreign bodies. Impression: 1: No acute bone or joint abnormality. Reviewed, dictated and finalized at location A. [facility] Impression: 1: No acute bone or joint abnormality. Impression: 1: No acute bone or joint abnormality.
[2021-10-21 18:50] VITALS: BP 131/77; PULSE 86; RESP 18; TEMP 36.6; O2SAT 100
[2021-10-21] MEDS: CYCLOBENZAPRINE HCL 10 MG TABLET PO (20:13)
[2021-10-21] MEDS: KETOROLAC (*BKC) 60 MG/2 ML VIAL IM (20:13)
--- NOTE | 2021-10-21 20:18 | PC.NURSE ---
Flexril and toradol adm as ordered. No other complaints at this time.
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
[2021-10-21 21:12] VITALS: BP 102/78; PULSE 62; RESP 18; O2SAT 98
== END 2021-10-21 21:12 | disposition home or self-care (01) ==
PROVIDERS: Emergency Provider Emergency Medicine; PCP Hospitalist
DX: S46.812A Strain of other muscles, fascia and tendons at shoulder and upper arm level, left arm, initial encounter (principal); G40.909 Epilepsy, unspecified, not intractable, without status epilepticus; I49.8 Other specified cardiac arrhythmias; W51.XXXA Accidental striking against or bumped into by another person, initial encounter
CPT/HCPCS: 73010; 73030; 96372; 99283; A9270; J1885

== ENCOUNTER 2022-07-10 12:08 | Emergency (ER) | payer OTHER, SELFPAY ==
--- NOTE | ~2022-07-10 | CT_ITS ---
EXAMINATION: CT brain wo con DATE: 07/10/2022 15:03 INDICATION: Head injury with laceration at the right forehead TECHNIQUE: Computed tomography (CT) of the head was performed without intravenous contrast. Sagittal and coronal reconstructions were performed. Dose Antoine The dose-length product was 605.33 mGy-cm. COMPARISON: None FINDINGS: Small shallow skin laceration in the supraorbital right forehead. No fracture. No acute intracranial hemorrhage, acute infarction or abnormal extra axial fluid collection. Ventricles are normal and symm etric. No mass/mass effect. Moderate mucosal thickening the bilateral ethmoid and maxillary sinuses, the latter with additional dependently layering fluid. At the left maxilla sinus this surrounds an 8 mm higher attenuation nodular region which could represent a polyp or mucous retention cyst. The orbi ts and mastoid air cells are normal. IMPRESSION: 1. Small shallow skin laceration to right forehead. No fracture or acute intracranial process. 2. Sinus disease. Reviewed, dictated and finalized at location A. [employer] IMPRESSION: 1. Small shallow skin laceration to right forehead. No fracture or acute intrac ranial process. 2. Sinus disease.
[2022-07-10 12:21] VITALS: BP 132/70; PULSE 88; RESP 16; TEMP 36.7; O2SAT 100
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
== END 2022-07-10 16:05 | disposition home or self-care (01) ==
PROVIDERS: Emergency Provider Emergency Medicine; PCP Hospitalist
DX: S01.81XA Laceration without foreign body of other part of head, initial encounter (principal); G40.909 Epilepsy, unspecified, not intractable, without status epilepticus; W20.8XXA Other cause of strike by thrown, projected or falling object, initial encounter
CPT/HCPCS: 12011; 70450; 99284

== ENCOUNTER 2022-11-07 08:47 | Outpatient (CLI) | payer BC, MEDICAID, SELFPAY ==
--- NOTE | ~2022-11-07 | XR_ITS ---
EXAMINATION: XR hysterosalpingogram DATE: 11/07/2022 12:54 INDICATION: To the opacity TECHNIQUE: Multiple fluoroscopic images were obtained during contrast infusion into the endometrial c anal of the uterus by the primary physician. Fluoroscopy exposure time was 0.3 minutes. A total of 3 images were recorded. FINDINGS: The retroverted uterine cavity demonstrates normal morphology. The fallopian tubes are normal in benjy iber and patent bilaterally. There is normal spillage of contrast into the peritoneum on both sides. IMPRESSION: 1. Normal hysterosalpingogram. Reviewed, dictated and finalized at location A.
[2022-11-07 10:38] LABS: Beta HCG Quantitative < 2.39 mIU/ML
== END 2022-11-07 08:48 | disposition home or self-care (01) ==
PROVIDERS: PCP Hospitalist; Visit Provider Obstetrics & Gynecology Gynecology
DX: Z31.49 Encounter for other procreative investigation and testing (principal)
CPT/HCPCS: 36415; 58340; 74740; 84702; Q9966

== ENCOUNTER → 2022-12-04 08:22 | Outpatient (CLI) | payer BC, SELFPAY ==
--- NOTE | ~2022-12-04 | US_ITS ---
Pelvic ultrasound. Clinical History: Ovarian cyst Technique: Realtime transabdominal and transvaginal scanning of the pelvis was performed. Color flow Doppler and Doppler spectral analysis were performed. Findings: The uterus is anteverted, retroflexed. The endometrial stripe has a thickness of 6 mm. No focal mass is identified. The right ovary measures 4.4 x 1.9 x 3.9 cm. No significant right ovarian or adnexal mass is seen. The left ovary measures 2.7 x 1.7 x 2.5 cm. No significant left ovarian or adnexal mass is seen. There is no evidence of free fluid in the cul de sac. Impression: Unremarkable pelvic ultrasound. Reviewed, dictated and finalized at location . Impression: Unremarkable pelvic ultrasound.
== END ==
PROVIDERS: PCP Obstetrics & Gynecology Gynecology; Visit Provider Obstetrics & Gynecology Gynecology
DX: N83.209 Unspecified ovarian cyst, unspecified side (principal)
CPT/HCPCS: 76856

== ENCOUNTER 2022-12-20 07:56 | Emergency (ER) | payer OTHER, BC, MEDICAID, SELFPAY ==
[2022-12-20 07:59] VITALS: BP 111/64; PULSE 82; RESP 16; TEMP 36.6; O2SAT 100
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
[2022-12-20] MEDS: ACETAMINOPHEN 500 MG TABLET 1000 MG PO (08:34)
[2022-12-20] MEDS: diphenhydrAMINE HCl CAP 25 MG CAPSULE PO (08:35)
[2022-12-20] MEDS: METOCLOPRAMIDE HCL INJ 10 MG/2 ML VIAL IM (08:36)
== END 2022-12-20 09:40 | disposition home or self-care (01) ==
PROVIDERS: Emergency Provider Emergency Medicine; PCP Obstetrics & Gynecology Gynecology
DX: S06.0X0A Concussion without loss of consciousness, initial encounter (principal); G43.909 Migraine, unspecified, not intractable, without status migrainosus; G40.909 Epilepsy, unspecified, not intractable, without status epilepticus; V49.50XA Passenger injured in collision with unspecified motor vehicles in traffic accident, initial encounter
CPT/HCPCS: 96372; 99283; A9270; J2765

== ENCOUNTER 2023-02-08 15:07 | Outpatient (CLI) | payer BC, MEDICAID, SELFPAY ==
--- NOTE | ~2023-02-08 | US_ITS ---
Please refer to report dated 02/08/2023 for details. Reviewed, dictated and finalized at location []
--- NOTE | ~2023-02-08 | US_ITS ---
Pelvic ultrasound. Clinical History: First trimester , uncertain dates Technique: Realtime transabdominal scanning of the pelvis was performed. Color flow Doppler and Doppl er spectral analysis were performed. Findings: The uterus is anteverted. There is diamniotic, dichorionic twin intrauterine gestation. Fet us a (left-sided) demonstrates crown-rump length of 2 mm, consistent with estimated gestational age o f 5 weeks 5 days, and associated heart rate of 109 bpm. Fetus B (right-sided) demonstrates crown-rump length of 4 mm, consistent with estimated gestational age of 6 weeks 0 days, and associated heart ra te of 107 bpm. Yolk sac is present in each of the gestational sacs. The right ovary measures 3.1 x 1.6 x 3.3 cm. No significant right ovarian or adnexal mass is seen. The left ovary measures 3.9 x 1.7 x 2.2 cm. No significant left ovarian or adnexal mass is seen. There is no evidence of free fluid in the cul de sac. Impression: Live twin diamniotic, dichorionic intrauterine gestations, as detailed above. Reviewed, dictated and finalized at location . Impression: Live twin diamniotic, dichorionic intrauterine gestations, as detailed above.
== END 2023-02-08 15:08 ==
LOC: MICIMG 15:08
PROVIDERS: PCP Obstetrics & Gynecology Gynecology; Visit Provider Obstetrics & Gynecology Gynecology
DX: Z36.87 Encounter for antenatal screening for uncertain dates (principal)
CPT/HCPCS: 76801; 76802

== ENCOUNTER → 2023-02-15 14:14 | Outpatient (CLI) | payer BC, MEDICAID, SELFPAY ==
--- NOTE | ~2023-02-15 | US_ITS ---
EXAMINATION: US OB limited DATE: 02/15/2023 14:37 INDICATION: viability assessment, term TECHNIQUE: Real-time ultrasound of the pelvis was performed. The interpreting radiologist was not pre sent for the study. COMPARISON: 02/08/2023 FINDINGS: There are two intrauterine gestational sacs by a thick membrane. There is a 2.7 x 1.3 x 1.7 cm hypoechoic area anterior to the right gestational sac extending somewhat into the cleft between the two gestational sacs. . The yolk sacs are visualized cardiac activity is noted. Fe madhu heart rate is 141 beats per minute (bpm) for baby A and 143 bpm for baby B. IMPRESSION: 1. Viable dichorionic, diamniotic twins. 2. Small subchronic hematoma. Reviewed, dictated and finalized at location L.
== END ==
PROVIDERS: PCP Obstetrics & Gynecology Gynecology; Visit Provider Obstetrics & Gynecology Gynecology
DX: O36.7 Maternal care for viable fetus in abdominal pregnancy (principal); O99.419 Diseases of the circulatory system complicating pregnancy, unspecified trimester; Z3A.00 Weeks of gestation of pregnancy not specified
CPT/HCPCS: 76815

== ENCOUNTER 2023-02-23 17:57 | Emergency (ER) | payer BC, MEDICAID, SELFPAY ==
[2023-02-23] VITALS (7 sets, daily range): BP systolic 104–120; BP diastolic 53–82; PULSE 82–115; RESP 16; TEMP 36.6; O2SAT 100
[2023-02-23] MEDS: SODIUM CHLORIDE 0.9% IV 1,000 ML 999 ML IV CONT ×2 (18:39)
--- NOTE | 2023-02-23 18:45 | ED.GENADULT ---
HPI - General Adult General Chief complaint: Nausea/Vomiting/Diarrhea Stated complaint: Vomiting and 8 weeks Time Seen by Provider: 02/23/23 18:01 History of Present Illness HPI narrative: 22-year-old female presented emergency department for evaluation of persistent nausea and vomiting. Patient is approximately 8 weeks and has been having nausea and vomiting since 6 weeks of gestation. Patient has had 2 ultrasounds confirming an IUP. Patient has had follow-up with Dr. Merchant. Patient has been taking Zofran without improvement of her nausea and vomiting. Patient states she is able to sip water but does anything she can keep down. Patient denies any associate abdominal pain. Patient denies any vaginal bleeding vaginal discharge or uterine cramping. Related Data Home Medications Medication Instructions Recorded Confirmed ferrous sulfate 325 mg (65 mg 325 mg PO HS 03/23/21 04/01/21 iron) tablet oxcarbazepine 150 mg tablet 150 mg PO BID 03/23/21 04/01/21 vit no.95-ferrous 1 tablet PO DAILY 03/23/21 04/01/21 fumarate 28 mg-folic acid 800 mcg tablet () Allergies Allergy/AdvReac Type Severity Reaction Status Date / Time ceftriaxone [From Rocephin] Allergy Numbness Verified 12/20/22 07:56 Penicillins Allergy Swelling Verified 12/20/22 07:56 of Lip/Tongue/Throat Review of Systems Review of Systems: All systems reviewed & are unremarkable except as noted in HPI and below PMFSH Past Medical History Medical History Epilepsy POTS (postural orthostatic tachycardia syndrome) early contractions PTSD (post-traumatic stress disorder) Family History Family History Sibling Autism Heart murmur Mother Epilepsy Heart murmur Social History Social History Smoking status: Never smoker Second hand tobacco smoke exposure: No Substance use: never Gender identity (if verbalized by the patient): Female Spiritual care concerns: No Exam Narrative: APPEARANCE: Well appearing, no pain, no distress, well-nourished. HEAD: normocephalic, atraumatic. EYES: PERRLA/EOMI, conjunctivae clear. NOSE: Normal no drainage NECK: Supple. No adenopathy, no masses. RESPIRATORY: Airway patent, respirations nonlabored. Clear to auscultation bilaterally, no rales, rhonchi, wheezing. CARDIOVASCULAR: Regular rate and rhythm without murmurs rubs or gallops. ABDOMINAL: Soft, nontender, nondistended, normal bowel sounds MUSCULOSKELETAL: Moves all extremities. Strength/ROM intact, No edema, No calf tenderness. NEURO: Alert. Cranial nerves II through XII intact. Grossly intact SKIN: Warm, dry. Normal Color Course Course Emergency Course: 22-year-old female that is approximately 9 weeks presented the ED for evaluation of persistent nausea and vomiting. Patient was mildly orthostatic when she arrived. Patient's nausea and vomiting was controlled with fluids IV Zofran and IV Reglan. Patient did have some elevated white blood cells and bacteria in her urine with moderate squamous cells, patient denies any urinary symptoms and urine culture was ordered. Patient was tolerating p.o. Patient was encouraged of close follow-up with her primary care physician. All question concerns were addressed. Vital Signs Vital signs: Vital Signs Temperature 97.8 F 02/23/23 17:58 Pulse Rate 94 02/23/23 17:58 Respiratory Rate 16 02/23/23 17:58 Blood Pressure 116/72 02/23/23 17:58 Pulse Oximetry 100 02/23/23 17:58 Oxygen Delivery Room Air 02/23/23 17:58 Temperature 97.8 F 02/23/23 17:58 Pulse Rate 107 H 02/23/23 20:30 Respiratory Rate 16 02/23/23 17:58 Blood Pressure 118/78 02/23/23 20:30 Pulse Oximetry 100 02/23/23 17:58 Oxygen Delivery Room Air 02/23/23 17:58 Medical Deci
[2023-02-23 18:52] LABS: Appearance Urine Cloudy (Clear); Bacteria Urine 1+ /hpf; Bilirubin Urine Negative (Negative); Blood Urine Negative (Negative); Color Urine Dark Yellow (Yellow); Glucose Urine UA Negative (Negative); Ketones Urine 4+ mg/dL (Negative); Leukocyte Esterase Ur 2+ LEU/UL (Negative); Nitrate Urine Negative (Negative); Non Pathogenic Casts 0-2; Protein Urine 1+ mg/dL (Negative); RBC Urine 0-2 /hpf (0-2); Specific Grav Ur 1.026 (1.001-1.035); Squamous Epithelial Cell Urine Moderate /hpf (Few); WBC Urine 21-50 /hpf
[2023-02-23 18:54] LABS: Alanine Aminotransferase 21 U/L (6-35); Albumin Level 4.3 g/dL (3.5-5.1); Alkaline Phosphatase 53 U/L (38-126); Anion Gap 11 mmol/L (8-16); Aspartate Amino Transferase 24 U/L (14-36); Bilirubin,Total 0.4 mg/dL (0.2-1.3); Blood Urea Nitrogen 9 mg/dL (7-17); Calcium 9.3 mg/dL (8.4-10.2); Carbon Dioxide 24 mmol/L (22-30); Chloride 101 mmol/L (98-107); Estimated CRCL calculation 122 ml/min; Estimated Glomerular Filt Rate > 60; Glucose 103 mg/dL (65-110); Lipase 79 U/L (23-300); Potassium 3.5 mmol/L (3.4-5.0); Sodium 136 mmol/L (137-145)
[2023-02-23 19:06] LABS: Add Urine Microscopic? YES
[2023-02-23 19:06] LABS: Basophils Absolute Auto 0.1 K/mm3 (0.0-0.1); Basophils Percent Auto 0.4 % (0.2-1.2); Eosinophils Percent Auto 0.3 % (0-4.4); Hematocrit 34.3 % (37.0-47.0); Hemoglobin 11.2 g/dL (12.0-15.0); Immature Granulocyte Absolute 0.04 K/mm3 (0.00-0.031); Immature Granulocyte Percent A 0.3 % (0-0.5); Lymphocytes Absolute Auto 1.75 K/mm3 (0.9-3.2); Lymphocytes Percent Auto 15.1 % (18.3-44.2); Mean Corpuscular HGB Conc 32.7 g/dl (32-36); Mean Corpuscular Hemoglobin 25.8 pg (26-34); Mean Platelet Volume 9.5 fl (7.4-10.4); Monocytes Absolute Auto 0.7 K/mm3 (0.1-0.6); Monocytes Percent Auto 6.1 % (2.6-8.5); Neutrophils Percent Auto 77.8 % (45.5-73.1); Platelet Count Result 350 k/mm3 (150-375); Red Blood Count 4.34 M/mm3 (4.2-5.4); Red Cell Distribution Width 16.1 % (11.5-14.5); White Blood Count 11.6 K/mm3 (4.5-10.0)
[2023-02-23] MEDS: ONDANSETRON INJ 4 MG/2 ML VIAL IV PUSH (19:06)
[2023-02-23] MEDS: METOCLOPRAMIDE HCL INJ 10 MG/2 ML VIAL IV PUSH (19:06)
[2023-02-23 19:48] LABS: Beta HCG Quantitative > 300000.00 mIU/ML
== END 2023-02-23 21:00 | disposition home or self-care (01) ==
PROVIDERS: Emergency Provider Emergency Medicine; PCP Obstetrics & Gynecology Gynecology
DX: O21.9 Vomiting of pregnancy, unspecified (principal); O99.351 Diseases of the nervous system complicating pregnancy, first trimester; G40.909 Epilepsy, unspecified, not intractable, without status epilepticus; G90.A Postural orthostatic tachycardia syndrome [POTS]; Z3A.09 9 weeks gestation of pregnancy
CPT/HCPCS: 36415; 80053; 81001; 83690; 84702; 85025; 87086; 87088; 96361; 96374; 96375; 99284; J2405; J2765; J7030

== ENCOUNTER 2023-03-09 13:09 | Outpatient (CLI) | payer BC, MEDICAID, SELFPAY ==
--- NOTE | 2023-03-09 | ECG_ITS ---
Measurements Intervals [place] Rate: 95 P: 36 AR: 144 QRS: 75 QRSD: 89 T: 17 QT: 356 QTc: 449 Interpretive Statements SINUS RHYTHM BORDERLINE ST ABNORMALITY- INFERIOR LEADS BORDERLINE ECG NO PREVIOUS ECG AVAILABLE FOR COMPARISON Electronically Signed On 03-09-2023 13:52:42 CDT by Bakari Resendiz D.O.
[2023-03-09 14:05] LABS: Alanine Aminotransferase 22 U/L (6-35); Alkaline Phosphatase 43 U/L (38-126); Anion Gap 12 mmol/L (8-16); Aspartate Amino Transferase 25 U/L (14-36); Bilirubin,Total 0.2 mg/dL (0.2-1.3); Blood Urea Nitrogen 8 mg/dL (7-17); Calcium 8.7 mg/dL (8.4-10.2); Carbon Dioxide 23 mmol/L (22-30); Chloride 102 mmol/L (98-107); Estimated Glomerular Filt Rate > 60; Glucose 90 mg/dL (65-110); Potassium 3.7 mmol/L (3.4-5.0); Sodium 137 mmol/L (137-145)
[2023-03-09 14:33] LABS: Thyroid Stimulating Hormone < 0.015 uIU/mL (0.465-4.680)
[2023-03-09 14:38] LABS: Free T4 Free Thyroxine 3.79 ng/mL (0.78-2.19)
== END 2023-03-09 13:10 | disposition home or self-care (01) ==
LOC: ANHLAB 13:12
PROVIDERS: Visit Provider Obstetrics & Gynecology Gynecology
DX: O99.411 Diseases of the circulatory system complicating pregnancy, first trimester (principal); Z3A.00 Weeks of gestation of pregnancy not specified; R94.31 Abnormal electrocardiogram [ECG] [EKG]
CPT/HCPCS: 36415; 80053; 84439; 84443; 93005

== ENCOUNTER 2023-03-10 11:16 | Emergency (ER) | payer BC, MEDICAID, SELFPAY ==
[2023-03-10 11:17] VITALS: BP 121/70; PULSE 113; RESP 18; TEMP 36.5; O2SAT 100
[2023-03-10] MEDS: SODIUM CHLORIDE 0.9% IV 1,000 ML 999 ML IV CONT ×3 (11:37→16:08)
[2023-03-10] MEDS: ONDANSETRON INJ 4 MG/2 ML VIAL IV PUSH (11:37)
--- NOTE | 2023-03-10 12:34 | ED.GENADULT ---
HPI - General Adult General Chief complaint: Nausea/Vomiting/Diarrhea Stated complaint: nausea and vomiting during - 10 weeks Time Seen by Provider: 03/10/23 11:29 History of Present Illness HPI narrative: 22-year-old female present emergency department for evaluation of persistent nausea and vomiting. Patient is approximately 10 weeks and has had issues with hyperemesis gravidarum. Patient reports she had been taking Zofran with improvement but states that yesterday she did not take her Zofran due to her not having any symptoms then by the time the afternoon all-around she was having worsening Related Data Home Medications Medication Instructions Recorded Confirmed ferrous sulfate 325 mg (65 mg 325 mg PO HS 03/23/21 04/01/21 iron) tablet oxcarbazepine 150 mg tablet 150 mg PO BID 03/23/21 04/01/21 vit no.95-ferrous 1 tablet PO DAILY 03/23/21 04/01/21 fumarate 28 mg-folic acid 800 mcg tablet () Allergies Allergy/AdvReac Type Severity Reaction Status Date / Time ceftriaxone [From Rocephin] Allergy Numbness Verified 03/10/23 11:17 Penicillins Allergy Swelling Verified 03/10/23 11:17 of Lip/Tongue/Throat metoclopramide [From Reglan] AdvReac Mild Rapid Verified 03/10/23 18:39 heart rate Review of Systems Review of Systems: All systems reviewed & are unremarkable except as noted in HPI and below PMFSH Past Medical History Medical History Epilepsy POTS (postural orthostatic tachycardia syndrome) early contractions PTSD (post-traumatic stress disorder) Family History Family History Sibling Autism Heart murmur Mother Epilepsy Heart murmur Social History Social History Smoking status: Never smoker Second hand tobacco smoke exposure: No Substance use: never Gender identity (if verbalized by the patient): Female Spiritual care concerns: No Exam Narrative: APPEARANCE: Ill-appearing HEAD: normocephalic, atraumatic. EYES: PERRLA/EOMI, conjunctivae clear. NOSE: Normal no drainage EARS:TMS clear with good light reflex. THROAT: Pharynx clear, no exudate. NECK: Supple. No adenopathy, no masses. RESPIRATORY: Airway patent, respirations nonlabored. Clear to auscultation bilaterally, no rales, rhonchi, wheezing. CARDIOVASCULAR: Regular rate and rhythm without murmurs rubs or gallops. ABDOMINAL: Soft, nontender, nondistended, normal bowel sounds MUSCULOSKELETAL: Moves all extremities. Strength/ROM intact, No edema, No calf tenderness. NEURO: Alert. Cranial nerves II through XII intact. Grossly intact SKIN: Warm, dry. Normal Color Course Course Emergency Course: 22-year-old female that is 10 weeks presents emerged department for evaluation of nausea and vomiting. Patient did have a mild leukocytosis of 12.3, no elevation in BUN or creatinine. Patient did have +4 urine ketones. Patient did have a glucose of 60 and was treated with p.o. glucose. Patient was tolerating p.o. Patient was treated with 3 L of IV fluids and patient's heart rate did improve. Patient was encouraged to continue to have close follow-up with her primary care physician. Patient denied any urinary symptoms but UA was concerning for a UTI, urine culture is pending and patient was started on Macrobid. Vital Signs Vital signs: Vital Signs Temperature 97.7 F 03/10/23 11:17 Pulse Rate 113 H 03/10/23 11:17 Respiratory Rate 18 03/10/23 11:17 Blood Pressure 121/70 03/10/23 11:17 Pulse Oximetry 100 03/10/23 11:17 Oxygen Delivery Room Air 03/10/23 11:17 Temperature 97.7 F 03/10/23 11:17 Pulse Rate 105 H 03/10/23 16:45 Respiratory Rate 20 03/10/23 16:45 Blood Pressure 107/50 L 03/10/23 16:45 Pulse Oximetry 99 03/10/23 16:45 Oxygen Delivery Room Air 03/10/23 1
[2023-03-10 12:50] LABS: Basophils Absolute Auto 0.1 K/mm3 (0.0-0.1); Basophils Percent Auto 0.5 % (0.2-1.2); Eosinophils Absolute Auto 0.1 K/mm3 (0-0.3); Eosinophils Percent Auto 0.5 % (0-4.4); Hematocrit 37.5 % (37.0-47.0); Hemoglobin 12.2 g/dL (12.0-15.0); Immature Granulocyte Absolute 0.05 K/mm3 (0.00-0.031); Immature Granulocyte Percent A 0.4 % (0-0.5); Mean Corpuscular HGB Conc 32.5 g/dl (32-36); Mean Corpuscular Hemoglobin 26.1 pg (26-34); Mean Corpuscular Volume 80.1 fl (80-100); Mean Platelet Volume 9.7 fl (7.4-10.4); Monocytes Absolute Auto 0.9 K/mm3 (0.1-0.6); Monocytes Percent Auto 6.9 % (2.6-8.5); Neutrophils Percent Auto 73.7 % (45.5-73.1); Platelet Count Result 305 k/mm3 (150-375); Red Blood Count 4.68 M/mm3 (4.2-5.4); White Blood Count 12.3 K/mm3 (4.5-10.0)
[2023-03-10 12:59] LABS: Appearance Urine Turbid (Clear); Bacteria Urine 3+ /hpf; Bilirubin Urine Negative (Negative); Blood Urine Negative (Negative); Color Urine Yellow (Yellow); Glucose Urine UA Negative (Negative); Ketones Urine 4+ mg/dL (Negative); Leukocyte Esterase Ur 3+ LEU/UL (Negative); Nitrate Urine Negative (Negative); Protein Urine Trace mg/dL (Negative); RBC Urine 0-2 /hpf (0-2); Specific Grav Ur 1.018 (1.001-1.035); Squamous Epithelial Cell Urine Many /hpf (Few); WBC Urine 21-50 /hpf; pH Urine 6.5 (5.0-9.0)
[2023-03-10 13:14] LABS: Alanine Aminotransferase 24 U/L (6-35); Albumin Level 4.1 g/dL (3.5-5.1); Alkaline Phosphatase 48 U/L (38-126); Anion Gap 14 mmol/L (8-16); Aspartate Amino Transferase 35 U/L (14-36); Bilirubin,Total 0.6 mg/dL (0.2-1.3); Blood Urea Nitrogen 7 mg/dL (7-17); Calcium 9.1 mg/dL (8.4-10.2); Carbon Dioxide 18 mmol/L (22-30); Chloride 102 mmol/L (98-107); Estimated CRCL calculation 140 ml/min; Estimated Glomerular Filt Rate > 60; Glucose 60 mg/dL (65-110); Potassium 3.7 mmol/L (3.4-5.0); Sodium 134 mmol/L (137-145)
[2023-03-10 13:18] LABS: Add Urine Microscopic? YES
[2023-03-10] MEDS: METOCLOPRAMIDE HCL INJ 10 MG/2 ML VIAL IV PUSH (13:36)
[2023-03-10 14:30] VITALS: BP 107/45; PULSE 115; RESP 20; O2SAT 100
[2023-03-10] MEDS: NITROFURANTOIN MONOHYD MACROCR 100 MG CAP PO (15:13)
[2023-03-10] MEDS: diphenhydrAMINE HCl INJ 50 MG/ML VIAL IV PUSH (15:13)
[2023-03-10 15:41] VITALS: BP 105/42; PULSE 106; RESP 20; O2SAT 99
[2023-03-10 16:45] VITALS: BP 107/50; PULSE 105; RESP 20; O2SAT 99
== END 2023-03-10 16:46 | disposition home or self-care (01) ==
PROVIDERS: Emergency Provider Emergency Medicine; PCP Obstetrics & Gynecology Gynecology
DX: O21.9 Vomiting of pregnancy, unspecified (principal); O23.41 Unspecified infection of urinary tract in pregnancy, first trimester; N39.0 Urinary tract infection, site not specified; Z3A.10 10 weeks gestation of pregnancy
CPT/HCPCS: 36415; 80053; 81001; 81025; 85025; 87086; 96361; 96374; 96375; 99284; A9270; J1200; J2405; J2765; J7030

== ENCOUNTER 2023-03-12 09:07 | Emergency (ER) | payer BC, MEDICAID, SELFPAY ==
[2023-03-12 09:14] VITALS: BP 119/79; PULSE 88; RESP 20; TEMP 36.8; O2SAT 100
--- NOTE | 2023-03-12 09:19 | ECG_ITS ---
Measurements Intervals [place] Rate: 112 P: 60 IA: 147 QRS: 70 QRSD: 98 T: 9 QT: 340 QTc: 466 Interpretive Statements SINUS TACHYCARDIA POSSIBLE LEFT ATRIAL ENLARGEMENT BORDERLINE ST-T WAVE ABNORMALITY- INF/LAT LEADS BASELINE ARTIFACT- V5 ABNORMAL ECG COMPARED TO ECG 03/09/2023 13:42:06 SINUS TACHYCARDIA NOW PRESENT Electronically Signed On 03-12-2023 9:58:23 CDT by Bkaari Resendiz D.O.
--- NOTE | 2023-03-12 09:19 | ED.NAVMDI ---
HPI - Nausea/Vomiting/Diarrhea General Chief complaint: Nausea/Vomiting/Diarrhea Stated complaint: /vomiting Time Seen by Provider: 03/12/23 09:10 History of Present Illness HPI Narrative: 22-year-old female presents to the emergency room today for ongoing problems with nausea and vomiting in . She has had to come to the ER 2 other times in the last couple of weeks for this problem. She is 10 weeks with twins. She has been taking Zofran ODT at home. She was able to eat okay yesterday but her symptoms came back pretty bad yesterday evening. She has also tried taking Benadryl at home but that did not help. She has been having intermittent feelings of shortness of breath. Sometimes she feels pressure in her chest. She says that this started when she started having worsening nausea and vomiting symptoms over the past couple of weeks. Denies having any pain in her chest or back. Denies having any abdominal pain. Related Data Home Medications Medication Instructions Recorded Confirmed ferrous sulfate 325 mg (65 mg 325 mg PO HS 03/23/21 04/01/21 iron) tablet oxcarbazepine 150 mg tablet 150 mg PO BID 03/23/21 04/01/21 vit no.95-ferrous 1 tablet PO DAILY 03/23/21 04/01/21 fumarate 28 mg-folic acid 800 mcg tablet () Allergies Allergy/AdvReac Type Severity Reaction Status Date / Time ceftriaxone [From Rocephin] Allergy Numbness Verified 03/12/23 09:23 Penicillins Allergy Swelling Verified 03/12/23 09:23 of Lip/Tongue/Throat metoclopramide [From Reglan] AdvReac Mild Rapid Verified 03/12/23 09:23 heart rate Review of Systems Review of Systems: CONSTITUTIONAL: Denies fever, chills, or sweats. EYES: Denies visual changes, redness, or discharge. ENT: Denies rhinorrhea, congestion, sore throat, or otalgia. CARDIOVASCULAR: intermittent chest heaviness, no chest pain RESPIRATORY: Intermittent episodes of shortness of breath. no cough or chest congestion GASTROINTESTINAL: as per HPI GENITOURINARY: Denies dysuria or hematuria. SKIN: Denies rash or itching. MUSCULOSKELETAL: Denies back pain, joint pain, or myalgia. NEUROLOGIC: Denies headache, numbness, dizziness, or weakness. PSYCHIATRIC: Denies anxiety or depression. [facility] Past Medical History Medical History Epilepsy POTS (postural orthostatic tachycardia syndrome) early contractions PTSD (post-traumatic stress disorder) Family History Family History Sibling Autism Heart murmur Mother Epilepsy Heart murmur Social History Social History Smoking status: Never smoker Second hand tobacco smoke exposure: No Substance use: never Gender identity (if verbalized by the patient): Female Spiritual care concerns: No Exam Narrative: GENERAL: no acute distress. HEAD: Normocephalic, atraumatic. EYES: PERRL and EOMI. NECK: Supple. No adenopathy or masses. No carotid bruits or JVD CHEST: Clear to auscultation. No respiratory distress. No wheezes rales or rhonchi HEART: Regular rate and rhythm. No murmur heard. Normal peripheral pulses. ABDOMEN: Soft, nontender, nondistended, normal active bowel sounds. EXTREMITIES: Normal range of motion. No edema. SKIN: Warm, dry, no rash. NEURO: No focal deficits. Alert and oriented x3. PSYCH: Normal mood and affect. Course Course Emergency Course: Pt has been tachycardic during visit staying mostly between 100-115 but increases to 130s with activity. Reported improvement in symptoms after fluids and meds. Vital Signs Vital signs: Vital Signs Temperature 36.8 C 03/12/23 09:14 Pulse Rate 88 03/12/23 09:14 Respiratory Rate 20 03/12/23 09:14 Blood Pressure 119/79 03/12/23 09:14 Pulse Oximetry 100 03/12/23 09:14 Oxygen Delivery Room
[2023-03-12] MEDS: MAG HYDROX/AL HYDROX/SIMETH 30 ML UDC PO (09:32)
[2023-03-12] MEDS: SODIUM CHLORIDE 0.9% IV 1,000 ML 999 ML IV CONT (09:32)
[2023-03-12] MEDS: diphenhydrAMINE HCl INJ 50 MG/ML VIAL 25 MG IV PUSH ×2 (09:33→09:48)
[2023-03-12] MEDS: PROCHLORPERAZINE EDISYLATE 10 MG/2 ML VIAL IV PUSH (09:33)
[2023-03-12 09:39] VITALS: BP 120/71; PULSE 102; RESP 20; O2SAT 100
[2023-03-12 09:41] LABS: Basophils Percent Auto 0.3 % (0.2-1.2); Eosinophils Absolute Auto 0.1 K/mm3 (0-0.3); Eosinophils Percent Auto 0.8 % (0-4.4); Hematocrit 35.3 % (37.0-47.0); Hemoglobin 11.5 g/dL (12.0-15.0); Immature Granulocyte Absolute 0.06 K/mm3 (0.00-0.031); Immature Granulocyte Percent A 0.5 % (0-0.5); Lymphocytes Absolute Auto 1.91 K/mm3 (0.9-3.2); Lymphocytes Percent Auto 16.1 % (18.3-44.2); Mean Corpuscular HGB Conc 32.6 g/dl (32-36); Mean Corpuscular Hemoglobin 26.1 pg (26-34); Mean Platelet Volume 9.1 fl (7.4-10.4); Monocytes Absolute Auto 0.7 K/mm3 (0.1-0.6); Monocytes Percent Auto 5.5 % (2.6-8.5); Neutrophils Absolute Auto 9.1 K/mm3 (1.3-6.7); Neutrophils Percent Auto 76.8 % (45.5-73.1); Platelet Count Result 279 k/mm3 (150-375); Red Blood Count 4.41 M/mm3 (4.2-5.4); Red Cell Distribution Width 15.9 % (11.5-14.5); White Blood Count 11.9 K/mm3 (4.5-10.0)
[2023-03-12 09:50] LABS: Alanine Aminotransferase 22 U/L (6-35); Alkaline Phosphatase 50 U/L (38-126); Anion Gap 10 mmol/L (8-16); Aspartate Amino Transferase 24 U/L (14-36); Bilirubin,Total 0.3 mg/dL (0.2-1.3); Blood Urea Nitrogen 5 mg/dL (7-17); Calcium 8.7 mg/dL (8.4-10.2); Carbon Dioxide 22 mmol/L (22-30); Chloride 103 mmol/L (98-107); Estimated CRCL calculation 141 ml/min; Estimated Glomerular Filt Rate > 60; Glucose 76 mg/dL (65-110); Lipase 68 U/L (23-300); Potassium 3.4 mmol/L (3.4-5.0); Sodium 135 mmol/L (137-145)
--- NOTE | 2023-03-12 10:13 | PC.NURSE ---
pt said not able to urinate at this time
[2023-03-12 11:03] LABS: Add Urine Microscopic? YES; Appearance Urine Cloudy (Clear); Bacteria Urine 1+ /hpf; Bilirubin Urine Negative (Negative); Blood Urine Negative (Negative); Color Urine Yellow (Yellow); Glucose Urine UA Negative (Negative); Ketones Urine 2+ mg/dL (Negative); Leukocyte Esterase Ur 3+ LEU/UL (Negative); Nitrate Urine Negative (Negative); Non Pathogenic Casts 0-2; Protein Urine Negative (Negative); RBC Urine 0-2 /hpf (0-2); Specific Grav Ur 1.006 (1.001-1.035); Squamous Epithelial Cell Urine Moderate /hpf (Few); WBC Urine 51-100 /hpf
[2023-03-12] MEDS: DEXTROSE 5%/LACTATED RINGERS 1,000 ML 999 ML IV CONT (11:18)
[2023-03-12 11:20] VITALS: BP 118/64; PULSE 118; RESP 19; O2SAT 100
[2023-03-12] MEDS: ceFAZolin 1 GM/NS 50 ML 1 GM/50 ML BAG IVPB (11:50)
[2023-03-12 11:54] VITALS: BP 118/71; PULSE 110; RESP 17; O2SAT 100
[2023-03-12 12:06] LABS: Lactic Acid Reflex 1.5 mmol/L (0.7-2.0)
[2023-03-12 12:48] VITALS: BP 119/70; PULSE 112; RESP 8; O2SAT 100
[2023-03-12 13:06] VITALS: BP 116/70; PULSE 110; RESP 20; O2SAT 100
== END 2023-03-12 13:08 | disposition home or self-care (01) ==
PROVIDERS: Emergency Provider Nurse Practitioner Family; PCP Obstetrics & Gynecology Gynecology
DX: O23.41 Unspecified infection of urinary tract in pregnancy, first trimester (principal); N39.0 Urinary tract infection, site not specified; O21.9 Vomiting of pregnancy, unspecified; O99.351 Diseases of the nervous system complicating pregnancy, first trimester; G40.909 Epilepsy, unspecified, not intractable, without status epilepticus; O99.891 Other specified diseases and conditions complicating pregnancy; R00.0 Tachycardia, unspecified; Z3A.10 10 weeks gestation of pregnancy; R94.31 Abnormal electrocardiogram [ECG] [EKG]
CPT/HCPCS: 36415; 80053; 81001; 83605; 83690; 85025; 87040; 87086; 93005; 96361; 96365; 96375; 99284; A9270; J0690; J0780; J1200; J7030; J7121

== ENCOUNTER → 2023-03-19 15:06 | Outpatient (CLI) | payer BC, MEDICAID, SELFPAY ==
--- NOTE | ~2023-03-19 | US_ITS ---
EXAMINATION: US OB limited DATE: 03/19/2023 16:08 INDICATION: Subchorionic hematoma during twin TECHNIQUE: Real-time ultrasound of the pelvis was performed. The interpreting radiologist was not pre sent for the study. COMPARISON: 02/15/2023 FINDINGS: The uterus measures 13.4 x 8.0 x 11.1 cm. There are 2 separate intrauterine gestational sacs separate d by a thick membrane consistent with dichorionic diamniotic . A yolk sac and pole a re identified in each gestational sac. Gestational sac A is positioned more caudally and long the lef t than fetus B which is positioned further to the right and more cephalad in the uterus. There is a 2 .3 x 2.1 x 1.4 cm hypoechoic subchorionic hematoma positioned between the 2 gestational sacs. Fetus A heart motion is identified measuring 171 beats per minute (bpm) by M-mode Doppler. Fetus B heart mot ion is identified measuring 168 beats per minute (bpm) by M-mode Doppler. The ovaries are not visuali zed. There is no free fluid in the pelvis. IMPRESSION: 1. Dichorionic, diamnionic with 2 living fetuses. 2. No significant change in a 2.3 x 2.1 x 1.4 cm subchorionic hematoma. Reviewed, dictated and finalized at location B.
== END ==
PROVIDERS: PCP Obstetrics & Gynecology Gynecology; Visit Provider Obstetrics & Gynecology Gynecology
DX: O36.8910 Maternal care for other specified fetal problems, first trimester, not applicable or unspecified (principal); O30.049 Twin pregnancy, dichorionic/diamniotic, unspecified trimester; Z3A.00 Weeks of gestation of pregnancy not specified
CPT/HCPCS: 76815

== ENCOUNTER 2023-07-19 12:29 | Outpatient (RCR) | payer BC, MEDICAID, SELFPAY ==
[2023-07-19 13:57] LABS: Hematocrit 30.9 % (37.0-47.0); Hemoglobin 9.3 g/dL (12.0-15.0)
[2023-07-19 14:10] LABS: Glucose 1 Hour PP 50gm Dose 107 mg/dL
[2023-07-19 14:51] LABS: HIV 1/2 Ab P24 Ag Result Negative (Negative)
[2023-07-19 18:21] LABS: Vitamin D 25 Hydroxy 21.5 ng/mL
[2023-07-22] MEDS: RHO(D) IMMUNE GLOBULIN 300 MCG/2 ML SYRINGE IM (16:44)
== END 2023-10-17 23:59 | disposition home or self-care (01) ==
LOC: ANHLAB 12:29
PROVIDERS: PCP Obstetrics & Gynecology Gynecology; Visit Provider Advanced Practice Midwife
DX: Z11.4 Encounter for screening for human immunodeficiency virus [HIV] (principal); Z29.13 Encounter for prophylactic Rho(D) immune globulin; O36.0190 Maternal care for anti-D [Rh] antibodies, unspecified trimester, not applicable or unspecified; E55.9 Vitamin D deficiency, unspecified; Z3A.00 Weeks of gestation of pregnancy not specified
CPT/HCPCS: 36415; 82306; 82947; 85014; 85018; 85461; 86703; 86850; 86900; 86901; 90384; 96372; G0432; J2790

== ENCOUNTER 2023-10-25 10:29 | Observation (INO) | payer BC, MEDICAID, SELFPAY ==
[2023-10-25] VITALS (7 sets, daily range): BP systolic 107–130; BP diastolic 63–75; PULSE 72–88; RESP 14–20; TEMP 36.2–36.9; O2SAT 99; BMI 20.6
--- NOTE | ~2023-10-25 | MR_ITS ---
MRI of the brain Clinical History: Seizure Technique: Axial and sagittal T1-weighted images were acquired. These were followed by axial T2-weigh celestina, diffusion weighted, gradient, and FLAIR images. Coronal T1-weighted and FLAIR images were perfor med. Following intravenous administration of 10 cc MultiHance gadolinium, T1-weighted fat-sat imaging was performed in the axial, coronal, and sagittal planes. Findings: No abnormal signal seen in the brain parenchyma. No acute infarct, intracranial hemorrhage, or mass lesion. Ventricles and subarachnoid spaces are unremarkable. Orbits are unremarkable. Paranasal sinuses and m astoid air cells are clear. Major intracranial flow voids are intact. Sagittal midline structures are intact. No evidence for mesial temporal sclerosis. No abnormal postcontrast enhancement identified. IMPRESSION: No significant abnormality seen. Reviewed, dictated and finalized at [facility]. SCIENCES MANAGER
--- NOTE | ~2023-10-25 | XR_ITS ---
EXAMINATION: XR chest 2V DATE: 10/25/2023 12:04 INDICATION: Chest pain and seizures TECHNIQUE: frontal and lateral views of the chest were obtained. COMPARISON: None FINDINGS: The lungs are clear with no focal airspace opacities, pulmonary edema, pleural effusion or pneumothor ax. The cardiomediastinal silhouette is normal. Visualized bones and soft tissues are unremarkable. IMPRESSION: 1. No acute cardiopulmonary disease. Reviewed, dictated and finalized at location A. CARE SPECIALIST
--- NOTE | ~2023-10-25 | CT_ITS ---
EXAMINATION: CT brain wo con INDICATION: Seizure COMPARISON: 07/10/2022 TECHNIQUE: Standard unenhanced head CT. The dose-length product (DLP) was 756.67 mGy-cm. The mA was a djusted according to patient size. Iterative reconstruction technique was employed. FINDINGS: No intracranial hemorrhage, acute infarction, or abnormal mass lesion. The ventricles are n ormal. No abnormal mass effect or midline shift. The salas-white matter differentiation is normal. The basal cisterns are patent. The orbits are normal. The paranasal sinuses, mastoids and calvarium are normal. IMPRESSION: 1. No acute intracranial abnormality. Reviewed, dictated and finalized at location L. IT ASSISTANT
--- NOTE | 2023-10-25 10:33 | ECG_ITS ---
Measurements Intervals [place] Rate: 95 P: 54 HI: 141 QRS: 61 QRSD: 96 T: 41 QT: 333 QTc: 419 Interpretive Statements SINUS RHYTHM NORMAL ECG COMPARED TO ECG 03/12/2023 09:47:48 SINUS RHYTHM NOW PRESENT Electronically Signed On 10-25-2023 10:39:56 EQUAL OPPORTUNITY DIRECTOR by Bakari Resendiz D.O.
--- NOTE | 2023-10-25 10:35 | ED.SEIZURE ---
HPI - Seizure General Chief Complaint: Seizure Stated Complaint: seizure History of Present Illness HPI Narrative: Patient is a 23-year-old female with history of POTS, epilepsy here with multiple seizures. Today while she was at work she since that she was going to have a seizure. She states that she had increased pressure in her head and lowered herself to the ground. Bystanders saw her have a seizure for approximately. She states that she has been having a viral-like illness for the last 5 days. 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 She states the majority of these viral symptoms seem to be improving however has had a persistent headache for the last 2 days. She describes it as a migraine-like headache with pressure in her bilateral temples. She was previously on Trileptal, when she started having children she was switched to Lamictal. She was discontinued on all of her anti epileptics approximately 2 months ago because she had been seizure-free for 2 years. She follows with neurology at [facility]. Related Data Home Medications Medication Instructions Recorded Confirmed No Home Medications 10/25/23 10/25/23 Allergies Allergy/AdvReac Type Severity Reaction Status Date / Time ceftriaxone [From Rocephin] Allergy Numbness Verified 03/12/23 09:23 Penicillins Allergy Swelling Verified 03/12/23 09:23 of Lip/Tongue/Throat prochlorperazine Allergy Palpitation Verified 10/25/23 10:39 [From Compazine] s metoclopramide [From Reglan] AdvReac Mild Rapid Verified 03/12/23 09:23 heart rate Review of Systems Review of Systems: All systems reviewed & are unremarkable except as noted in HPI and below PMFSH Past Medical History Medical History (Updated 10/25/23 @ 19:03 by Khadijah Patrick MD) Depression Epilepsy Hyperthyroidism Posttraumatic stress disorder Postural orthostatic tachycardia syndrome In early Surgical History Surgical History (Updated 10/25/23 @ 16:35 by Elvia Bojorquez PA-C) History of section History of eye surgery Family History Family History Sibling Autism Heart murmur Mother Epilepsy Heart murmur Social History Social History (Updated 10/25/23 @ 16:35 by Elvia G Gerling, PA-C) Social History: Surrogate medical decision maker: Loki Ernandez, spouse. Code status: Full code. Smoking status: Never smoker Second hand tobacco smoke exposure: No Alcohol intake: never Substance use: never Do You Feel Safe in your Home?: Yes Lack of Transportation: No Lack of Food: Never True Current Housing: I Have Housing Concerned About Future Housing: No Difficulty Paying Gas/Electric Bills: No Difficulty Paying for Meds: No Currently Unemployed: No Education: High School Diploma/GED Difficulty w/ Childcare or Family Care: No Spiritual care concerns: No Exam Narrative: GENERAL: Well-appearing, well-nourished, and in no acute distress. HEAD: Normocephalic, atraumatic. EYES: PERRLA and EOMI. ENT: Nares clear. Mucous membranes moist. NECK: Supple. CHEST: Clear to auscultation. No respiratory distress. HEART: Regular rate and rhythm. Normal peripheral pulses. ABDOMEN: Soft, nontender, nondistended. EXTREMITIES: Normal range of motion. No edema. SKIN: Warm, dry, no rash. NEURO: No focal deficits. Alert and oriented x3. PSYCH: Normal mood and affect. Course Course Emergency Course: Chart review performed, patient here for seizure-like activity. Triage vitals normal. Last visit in our system was for a twin in February of last year. No prior visits in our system regarding her seizure disorder or syncope, however both epilepsy and POTS are on her medical history in our system. Patient seen evaluated, nontoxic appearing, alert, oriented, no witnessed seizure
[2023-10-25 10:44] LABS: Glucose Point of Care 118 mg/dl (65-105)
[2023-10-25] MEDS: ACETAMINOPHEN 500 MG TABLET 1000 MG PO (11:38)
[2023-10-25 11:47] LABS: Basophils Absolute Auto 0.1 K/mm3 (0.0-0.1); Basophils Percent Auto 1.1 % (0.2-1.2); Eosinophils Absolute Auto 0.3 K/mm3 (0-0.3); Eosinophils Percent Auto 3.4 % (0-4.4); Hematocrit 37.3 % (37.0-47.0); Hemoglobin 11.6 g/dL (12.0-15.0); Immature Granulocyte Absolute 0.05 K/mm3 (0.00-0.031); Immature Granulocyte Percent A 0.6 % (0-0.5); Lymphocytes Absolute Auto 3.07 K/mm3 (0.9-3.2); Lymphocytes Percent Auto 36.1 % (18.3-44.2); Mean Corpuscular HGB Conc 31.1 g/dl (32-36); Mean Corpuscular Hemoglobin 24.7 pg (26-34); Mean Corpuscular Volume 79.5 fl (80-100); Mean Platelet Volume 8.9 fl (7.4-10.4); Monocytes Absolute Auto 0.6 K/mm3 (0.1-0.6); Monocytes Percent Auto 7.4 % (2.6-8.5); Neutrophils Absolute Auto 4.4 K/mm3 (1.3-6.7); Neutrophils Percent Auto 51.4 % (45.5-73.1); Platelet Count Result 311 k/mm3 (150-375); Red Blood Count 4.69 M/mm3 (4.2-5.4); Red Cell Distribution Width 17.2 % (11.5-14.5); White Blood Count 8.5 K/mm3 (4.5-10.0)
[2023-10-25 11:59] LABS: Alanine Aminotransferase 25 U/L (6-35); Albumin Level 4.4 g/dL (3.5-5.1); Alkaline Phosphatase 93 U/L (38-126); Anion Gap 5 mmol/L (8-16); Aspartate Amino Transferase 27 U/L (14-36); Bilirubin,Total 0.2 mg/dL (0.2-1.3); Blood Urea Nitrogen 15 mg/dL (7-17); Calcium 10.1 mg/dL (8.4-10.2); Carbon Dioxide 28 mmol/L (22-30); Chloride 106 mmol/L (98-107); Estimated CRCL calculation 121 ml/min; Estimated Glomerular Filt Rate > 60; Glucose 91 mg/dL (65-110); Magnesium 1.7 mg/dL (1.6-2.3); Potassium 3.9 mmol/L (3.4-5.0); Sodium 139 mmol/L (137-145)
[2023-10-25 12:10] LABS: Troponin I < 0.012 ng/mL (0.000-0.034)
[2023-10-25 12:17] LABS: Appearance Urine Clear (Clear); Bacteria Urine Rare /hpf; Bilirubin Urine Negative (Negative); Blood Urine Negative (Negative); Color Urine Yellow (Yellow); Glucose Urine UA Negative (Negative); Ketones Urine Negative (Negative); Leukocyte Esterase Ur 2+ LEU/UL (Negative); Nitrate Urine Negative (Negative); Non Pathogenic Casts 0-2; Protein Urine Negative (Negative); RBC Urine 0-2 /hpf (0-2); Specific Grav Ur 1.018 (1.001-1.035); Squamous Epithelial Cell Urine Occasional /hpf (Few); Urobilinogen Urine 0.2 mg/dL (<2.0)
[2023-10-25 12:23] LABS: Influenza A QL RT-PCR Negative (Negative); Influenza B QL RT-PCR Negative (Negative); RSV RNA, RT-PCR Negative (Negative); SARS-CoV-2 RNA PCR Negative (Negative)
[2023-10-25 12:29] LABS: Add Urine Microscopic? YES
[2023-10-25] MEDS: levETIRAcetam 1000MG/NACL100ML 1,000 MG/100 ML BAG 400 MG IVPB (12:29)
[2023-10-25 12:31] LABS: Amphetamine Screen Urine Negative (Negative); Barbiturate Screen Urine Negative (Negative); Benzodiazepines Screen Urine Negative (Negative); Cannabinoid Screen Urine Negative (Negative); Cocaine Screen Urine Negative (Negative); Methadone Screen Urine Negative (Negative); Opiate Screen Urine Negative (Negative); Phencyclidine Screen Urine Negative (Negative)
--- NOTE | 2023-10-25 14:00 | PC.NURSE ---
Resting on cart with family at bedside. No further seizure activity since arrival.
--- NOTE | 2023-10-25 15:38 | ADMGEN ---
This patient, Lorri Ernandez, was admitted to [facility] Surg Room 309-01. Patient/family oriented to hospital policies and general routines including ID bracelet, bed and alarms, visiting hours, pain management, procedures, bathroom and other care routines, personal items, smoking policy, room service/diet, and visiting hours. Information on how to activate the Rapid Response Team has been discussed. Patient/Family are encouraged to report perceived risks to care and to ask questions if they do not understand what they are told or what they should do.
--- NOTE | 2023-10-25 16:27 | PM.IMHP ---
H&P: HPI History of Present Illness Date/Time: 10/25/23 16:30 Chief Complaint: Seizure. Narrative: This is a 23-year-old female with history of epilepsy and hyperthyroidism who presented to the emergency department via EMS for evaluation after multiple seizures. Today while work she sensed that she was going to have a seizure; she typically has an aura with feeling of increased pressure in her head. She lowered herself to the ground and bystanders witnessed a 15 second episode of seizure-like activity. She complained of a headache when she came to but goes on to say that she has had a migraine for the last 48 hours or so. 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 She denies fever, chills, sweats, vision changes, chest pain, shortness of breath, nausea, vomiting, diarrhea, and dysuria. She has been sleeping well. No history of alcohol abuse. Of note, she has not had a seizure for 2 years and was taken off of Lamictal by her neurologist. She is also no longer on methimazole and stopped taking that towards the end of her (she has 3 month old twins). Weight has remained stable. No palpitations or sensations of racing heart. In the ED: She was afebrile on arrival with stable vital signs. She tested negative for influenza, RSV, and COVID. CMP was pretty unremarkable. CBC showed a mild, microcytic anemia with a hemoglobin of 11.6 an MCV of 79.5 (this appears chronic). UA was positive for 2+ leukocyte esterase and 11 to 20 WBC. Urine drug screen was negative. Head CT and chest x-ray showed no acute findings. Neurologist was consulted by the ED physician and they recommend starting her on scheduled levetiracetam and admission for MRI and EEG. Review of Systems Review of Systems: Twelve systems were reviewed and are negative except for as per HPI. [facility] Past Medical History Medical History Depression Epilepsy Hyperthyroidism Posttraumatic stress disorder Postural orthostatic tachycardia syndrome In early Surgical History Surgical History History of section History of eye surgery Family History Family History Sibling Autism Heart murmur Mother Epilepsy Heart murmur Social History Social History Social History: Surrogate medical decision maker: Loki Ernandez, spouse. Code status: Full code. Smoking status: Never smoker Second hand tobacco smoke exposure: No Alcohol intake: never Substance use: never Do You Feel Safe in your Home?: Yes Lack of Transportation: No Lack of Food: Never True Current Housing: I Have Housing Concerned About Future Housing: No Difficulty Paying Gas/Electric Bills: No Difficulty Paying for Meds: No Currently Unemployed: No Education: High School Diploma/GED Difficulty w/ Childcare or Family Care: No Spiritual care concerns: No Meds Home Medications and Allergies Home Medications Medication Instructions Recorded Confirmed Type No Home Medications 10/25/23 10/25/23 History Allergies Allergy/AdvReac Type Severity Reaction Status Date / Time ceftriaxone [From Rocephin] Allergy Numbness Verified 03/12/23 09:23 Penicillins Allergy Swelling Verified 03/12/23 09:23 of Lip/Tongue/Throat prochlorperazine Allergy Palpitation Verified 10/25/23 10:39 [From Compazine] s metoclopramide [From Reglan] AdvReac Mild Rapid Verified 03/12/23 09:23 heart rate Vital Signs Vital Signs - 24 hr 10/25/23 10:33 10/25/23 10:41 10/25/23 11:48 Temperature 97.8 F Pulse Rate 72 86 88 Respiratory Rate 18 18 Blood Pressure 127/68 119/69 Pulse Oximetry 99 99 Oxygen Delivery Room Air 10/25/23 14:19 03/0
--- NOTE | 2023-10-25 17:14 | WPDNEURCNPN ---
Assessment and Plan Assessment and plan (1) Breakthrough seizure: Code(s): G40.919 - Epilepsy, unspecified, intractable, without status epilepticus Status: Acute Assessment and Plan: the patient is following with the epilepsy Center at [facility] in the past to have pseudoseizures or nonepileptic seizures versus seizures a consideration. Given the fact she had this morning 2 months after she came off Lamictal outside [facility] for now. We have given her 1000 mg initially and then 500 mg twice a day Plan 1. Continue the Keppra 500 mg twice a day 2. Check her serum calcium magnesium vitamin-D serum B12 and folate and prolactin level if he has any further spell a repeat prolactin level within 20-30 minutes can be helpful 3. I some get to provide support locally however states she follow-up with the epileptologist at [place] was T as previous. Consult date: 10/25/23 Time Seen: 16:45 Reason for consult: seizure disorder HPI: Lorri Ernandez is a 23 year old female history of seizures since age of hospital at [facility] and is on Lamictal. See was transferred over to Adult Services about a year or 2 ago the question of pseudoseizures was raised. See him off Lamictal 2 months ago see was at the time as he was taking the medication. She now has a twin A's 3 months and is breast-feeding. She apparently has had 10 or so seizures since this morning during which there was some twitching of the body patient had not been taking any anticonvulsant. The emergency room physician discussed with me and we decided to go ahead with [facility] for now. The patient does not recall having an EEG in the last 5 years. She is apparently scheduled for video EEG monitoring [facility] epilepsy Center in near future. Review of Systems Review of Systems: All systems reviewed & are unremarkable except as noted in HPI and below PMFSH Past Medical History Medical History (Updated 10/25/23 @ 16:38 by Elvia Bojorquez PA-C) Depression Epilepsy Hyperthyroidism Posttraumatic stress disorder Postural orthostatic tachycardia syndrome In early Surgical History Surgical History (Updated 10/25/23 @ 16:35 by Elvia Bojorquez PA-C) History of section History of eye surgery Family History Family History Sibling Autism Heart murmur Mother Epilepsy Heart murmur Social History Social History (Updated 10/25/23 @ 16:35 by Elvia Bojorquez PA-C) Social History: Surrogate medical decision maker: Loki Ernandez, spouse. Code status: Full code. Smoking status: Never smoker Second hand tobacco smoke exposure: No Alcohol intake: never Substance use: never Do You Feel Safe in your Home?: Yes Lack of Transportation: No Lack of Food: Never True Current Housing: I Have Housing Concerned About Future Housing: No Difficulty Paying Gas/Electric Bills: No Difficulty Paying for Meds: No Currently Unemployed: No Education: High School Diploma/GED Difficulty w/ Childcare or Family Care: No Spiritual care concerns: No Meds Home Medications and Allergies Home Medications Medication Instructions Recorded Confirmed Type No Home Medications 10/25/23 10/25/23 History Allergies Allergy/AdvReac Type Severity Reaction Status Date / Time ceftriaxone [From Rocephin] Allergy Numbness Verified 03/12/23 09:23 Penicillins Allergy Swelling Verified 03/12/23 09:23 of Lip/Tongue/Throat prochlorperazine Allergy Palpitation Verified 10/25/23 10:39 [From Compazine] s metoclopramide [From Reglan] AdvReac Mild Rapid Verified 03/12/23 09:23 heart rate Vital Signs Vital Signs - 24 hr 10/25/23 10:33 10/25/23 10:41 10/25/23 11:48 Temperature 36.6 C Pulse Rate 72 86 88 Respiratory Rate 18 18 Blood Pressure 127/68 119/69 Pulse Oximetry 99 99 Oxygen
[2023-10-25 18:48] LABS: Iron 57 ug/dL (37-170)
[2023-10-25 18:58] LABS: Percent Iron Saturation 12 % (20-50)
[2023-10-25 19:05] LABS: Free T4 Free Thyroxine 0.91 ng/mL (0.78-2.19)
[2023-10-25 20:01] LABS: Folic Acid 6.9 ng/mL (2.76->20)
[2023-10-25] MEDS: levETIRAcetam 500 MG TABLET PO (20:26)
[2023-10-26] VITALS: PULSE 69
[2023-10-26 04:00] VITALS: PULSE 71
[2023-10-26 06:00] VITALS: BP 113/72; PULSE 72; RESP 14; TEMP 36.6; O2SAT 99
[2023-10-26 06:23] LABS: Hematocrit 36.8 % (37.0-47.0); Hemoglobin 11.5 g/dL (12.0-15.0); Mean Corpuscular HGB Conc 31.3 g/dl (32-36); Mean Corpuscular Hemoglobin 25.2 pg (26-34); Mean Corpuscular Volume 80.7 fl (80-100); Platelet Count Result 304 k/mm3 (150-375); Red Blood Count 4.56 M/mm3 (4.2-5.4); Red Cell Distribution Width 17.4 % (11.5-14.5); White Blood Count 8.3 K/mm3 (4.5-10.0)
[2023-10-26 06:49] LABS: Anion Gap 6 mmol/L (8-16); Blood Urea Nitrogen 16 mg/dL (7-17); Calcium 8.9 mg/dL (8.4-10.2); Carbon Dioxide 26 mmol/L (22-30); Chloride 109 mmol/L (98-107); Estimated CRCL calculation 103 ml/min; Estimated Glomerular Filt Rate > 60; Glucose 117 mg/dL (65-110); Magnesium 1.7 mg/dL (1.6-2.3); Potassium 3.7 mmol/L (3.4-5.0); Sodium 141 mmol/L (137-145)
[2023-10-26 08:00] VITALS: PULSE 103; RESP 16; O2SAT 99
--- NOTE | 2023-10-26 08:44 | WPDNEUROPN ---
Progress Note: A&P Assessment and Plan (1) Seizure: Code(s): R56.9 - Unspecified convulsions Status: Acute (2) Breakthrough seizure: Code(s): G40.919 - Epilepsy, unspecified, intractable, without status epilepticus Status: Acute Plan Ms. Ernandez is a 23 year old female with a history of hyperthyroidism and epilepsy presenting for evaluation of seizures. 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 She was recently taken off of Lamictal after being seizure free for 2 years. - Routine EEG done, read is pending - Agree with Keppra 500mg BID for now - Will need to follow-up with her primary neurologist for further characterization of these episodes if they become more frequent with video EEG monitoring - Patient cannot drive or operate heavy machinery until she is seizure free for at least 6 months - Ok to discharge Subjective Date/time seen: 10/26/23 08:44 Interval history: Ms. Ernandez is a 23 year old female with a history of hyperthyroidism and epilepsy presenting for evaluation of seizures. Patient was at work yesterday when she had the episode. She initially felt increased pressure in her head (which is her typical aura). She was able to lower herself to the ground, and reportedly had a 15 second episode of 'seizure-like activity'. She had a headache afterwards. Patient reported that she had been seizure free for 2 years and was taken off of Lamictal by her Neurologist. 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 She is reportedly scheduled for video EEG monitoring at [facility] in the near future. ED work up was unrevealing except UA showed positive LE and WBC. UDS was negative. CT head showed no acute findings. MRI brain was normal. She has been started on Keppra 500mg BID at the recommendation of Dr. Trent. On discussion with patient, she first started having seizures around age 15. She was initially put on Trileptal. This is the only other anti-seizure medication she has been on other than Lamictal. She has a two year old daughter and 3 month old twins. She does report sleep deprivation due to caring for her young children. She works at [employer]. When asked what her seizure look like, patient told me that they have been described as 'grand mal'. She reports that she feels a headache, closes her eyes, puts her head down, and then her arms and RLE shake. She reports that she does not lose consciousness with the episodes. She has been episode free for the past 24 hours. Review of Systems Review of Systems: All systems reviewed & are unremarkable except as noted in HPI and below Exam Const: General: comfortable and no acute distress Eyes: General: appearance normal, both eyes and all related structures Pupils: Equal, round and reactive pupils present EOM: EOMs intact bilaterally Resp: Effort & Inspection: normal respiratory effort Skin: General skin exam: normal color Neuro: Other: Pupils equal and reactive bilaterally, EOMI, face symmetric, facial sensation intact, tongue protrudes midline, palate midline. Shoulder shrug normal. Strength 5/5 throughout. Sensation intact throughout, FNF normal bilaterally. Language comprehension and fluency intact. Gait deferred. Extrem: General: normal to inspection Psych: Mental Status: mental status grossly normal Affect: normal affect Objective Data Vital Signs Vital Signs: Vital Signs - 24 hr 10/25/23 10:33 10/25/23 10:41 10/25/23 11:48 Temperature 36.6 C Pulse Rate 72 86 88 Respiratory Rate 18 18 Blood Pressure 127/68 119/69 Pulse Oximetry 99 99 Oxygen Delivery Room Air 10/25/23 14:19 10/25/23 14:34 10/25/23 16:53 Temperature 36.2 C L Pulse Rate 74 75 Respiratory Rate 20 14 Blood Pressure 130/71 110/63 Pulse Oximetry 99 99 Oxygen Delivery Room Air 10/25/23 21:39 10/25/23 22:00 10/26/23 00:00 Te
[2023-10-26 09:10] VITALS: BP 111/66; PULSE 79; RESP 16; TEMP 36.1; O2SAT 99
[2023-10-26 09:11] VITALS: BP 119/66; BP 121/62; PULSE 103; PULSE 86
[2023-10-26] MEDS: levETIRAcetam 500 MG TABLET PO (09:27)
--- NOTE | 2023-10-26 11:40 | PM.DS ---
DS: Admitting Diagnosis Discharge Date 10/26/2023 Admitting Diagnosis Seizures DS: Discharge Diagnosis Discharge Diagnosis (1) Seizure: Code(s): R56.9 - Unspecified convulsions Status: Acute (2) Microcytic anemia: Code(s): D50.9 - Iron deficiency anemia, unspecified Status: Acute (3) History of hyperthyroidism: Code(s): Z86.39 - Personal history of other endocrine, nutritional and metabolic disease Status: Acute Plan The patient presented to the emergency department for evaluation of seizure as detailed in HPI. Labs, imaging, EKG, and all reports were personally reviewed. She has not had seizures for 2 years and was taken off of Lamictal by her neurologist. This morning she reportedly had several, brief seizures as above. She has been started on levetiracetam 500 mg b.i.d. at the request of the on-call neurologist whose input is greatly appreciated. Brain MRI and EEG have been ordered. She has a history of hyperthyroidism and is not currently on medication for that thus will check TSH, T3, and T4. She does not report any symptoms of hyperthyroidism, however. Also check iron studies, B12, and folate for evaluation of mild, microcytic anemia. Findings and treatment plan were discussed with the patient. Questions were solicited and answered to satisfaction. The patient's medical management will be taken over by the hospitalist team in a.m. DS: Summary Hospital Course Reason for hospitalization: Seizures Hospital Course: (Medical Record) Chief Complaint: Seizure. Narrative: This is a 23-year-old female with history of epilepsy and hyperthyroidism who presented to the emergency department via EMS for evaluation after multiple seizures. Today while work she sensed that she was going to have a seizure; she typically has an aura with feeling of increased pressure in her head. She lowered herself to the ground and bystanders witnessed a 15 second episode of seizure-like activity. She complained of a headache when she came to but goes on to say that she has had a migraine for the last 48 hours or so. 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 She denies fever, chills, sweats, vision changes, chest pain, shortness of breath, nausea, vomiting, diarrhea, and dysuria. She has been sleeping well. No history of alcohol abuse. Of note, she has not had a seizure for 2 years and was taken off of Lamictal by her neurologist. She is also no longer on methimazole and stopped taking that towards the end of her (she has 3 month old twins). Weight has remained stable. No palpitations or sensations of racing heart. In the ED: She was afebrile on arrival with stable vital signs. She tested negative for influenza, RSV, and COVID. CMP was pretty unremarkable. CBC showed a mild, microcytic anemia with a hemoglobin of 11.6 an MCV of 79.5 (this appears chronic). UA was positive for 2+ leukocyte esterase and 11 to 20 WBC. Urine drug screen was negative. Head CT and chest x-ray showed no acute findings. Neurologist was consulted by the ED physician and they recommend starting her on scheduled levetiracetam and admission for MRI and EEG. 10/25: DISCHARGED Patient with no complaints has remained seizure free for over 24 hours since starting the Keppra. Patient labs unremarkable and vitals stable. MRI showed no acute abnormalities and EEG completed pending reading. Patient had been seen by [place] Neurologist who recommended follow-up with her neurologist at [facility]. Patient understood the need to continue with Keppra 500 mg BID and schedule follow-up with her neurologist. Patient is aware she should be un strict no driving until 6 months seizure free. Patient ambulatory and discharged to home. Status at Discharge Functional status at discharge: independent ambulation Overall status at discharge: patient is back to baseline Time Spent w
[2023-10-27 23:56] LABS: Lamotrigine Lamictal <0.5 mcg/mL (2.5-15.0)
--- NOTE | 2023-10-29 12:15 | WPDNEUROLOGY ---
Neurology EEG Report General Information Date of Study: 10/26/23 TEST EEG DIAGNOSIS seizure disorder CONDITION OF RECORDING Fair EEG NUMBER [id number] CLINICAL HISTORY History of seizure disorder however possibility of nonepileptic events he is also being considered according to the patient EEG DESCRIPTION During wakefulness the background activity consists of posterior dominant alpha rhythm at 10 hertz with an amplitude of 20-40 microvolts which appears moderately formed and reactive to eye opening. Anteriorly low amplitude mixed frequency activity was seen. Patient appears to be drowsy. Stage I and 2 sleep were recorded during which vertex waves sleep spindles and K complexes were seen. Hyperventilation or 40 seconds duration were not performed. IMPRESSION This is a normal EEG obtained during awake and sleep states.
== END 2023-10-26 13:16 | disposition home or self-care (01) ==
LOC: ANHED 13:54 → ANH3MEDSUR 19:03
PROVIDERS: Physician Assistant; Admitting Provider Internal Medicine; Emergency Provider Student in an Organized Health Care Education/Training Program; Visit Provider Internal Medicine
DX: G40.919 Epilepsy, unspecified, intractable, without status epilepticus (principal); F32.A Depression, unspecified; D50.9 Iron deficiency anemia, unspecified; Z86.39 Personal history of other endocrine, nutritional and metabolic disease; Z20.822 Contact with and (suspected) exposure to COVID-19; F43.10 Post-traumatic stress disorder, unspecified; Z82.0 Family history of epilepsy and other diseases of the nervous system
CPT/HCPCS: 36415; 70450; 70553; 71046; 80048; 80053; 80175; 80307; 81001; 81025; 82607; 82728; 82746; 82948; 83540; 83550; 83735; 84439; 84443; 84480; 84484; 85025; 85027; 87086; 87088; 87637; 93005; 95816; 96374; 99285; A9270; A9577; G0378; J1953

== ENCOUNTER 2024-08-01 14:59 | Outpatient (CLI) | payer OTHER, SELFPAY ==
--- NOTE | ~2024-08-01 | US_ITS ---
EXAMINATION: US OB <= 14 weeks fetus DATE: 08/01/2024 15:42 INDICATION: with uncertain dates. TECHNIQUE: Real-time transabdominal pelvic ultrasound was performed. COMPARISON: None. FINDINGS: The uterus measures 9.8 x 9.1 x 9.2 cm. There is an intrauterine gestational sac. The crown rum p length measures 5.9 cm, which correlates with an estimated gestational age of 12 weeks and 3 day(s) . heart motion is identified measuring 156 beats per minute (bpm) by M-mode Doppler. There is a small subchronic hematoma. The right ovary measures 1.6 x 1.6 x 2.2 cm. The left ovary measures 4.1 x 1.7 x 2.6 cm. There is no free fluid in the pelvis. IMPRESSION: 1. Single living intrauterine gestation with estimated gestational age of 12 weeks and 3 days. 2. Small subchronic hematoma. Reviewed, dictated and finalized at location A. S LINED TANK REPAIRER IMPRESSION: 1. Single living intrauterine gestation with estimated gestational age of 12 w eeks and 3 days. 2. Small subchronic hematoma.
--- OUTSIDE RECORDS SUMMARY | 2024-08-05 00:14 | XMS_ITS | Encounter Summary ---
Author Organization [facility] Address [address] [place] [address]. [place], [place] [id number] [place] [address] Care Team Providers Care Prototype Machinist Name Role Phone None, Provider MD Primary Care Provider Unavaila ble Encounter Details Date Type Department Care Team (Latest Contact Info) Description 08/19/2022 Travel Social History Tobacco Use Types Packs/Day Years Used Date Smoking Tobacco: Never Smokeless Tobacco: Never Alcohol Use Standard Drinks/Week Comments Never 0 (1 standard drink = 0.6 oz pur e alcohol) AUDIT-C Answer Date Recorded Q1: How often do you have a drink containing alc ohol? Never 07/21/2020 Average Number of Drinks Not on file 020 Frequency of Binge Drinking Not on file 09/2019 Comments No Sex and Gender Information Value Date Recorded Sex Assigned at Not on file Legal Sex Female 7:05 PM CDT Gender Identity Not on file Sexual Orientation Not on file COVID-19 Exposure Response Date Recorded In the last 10 days, have lee u been in contact with someone who was confirmed or suspected to have Coronavirus/COVID-19? 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 Answer Date of Assessment Author Status No 05/14/2021 12:33 PM CDT Acti ve * Do you have serious difficulty walking or climbing stairs? Answer Date of Assessment Author Status No 05/14/2021 12:33 PM Adriane Inman RN Active * Do you have difficulty dressing or bathing? Answer Date of Assessment Author Status No 05/14/2021 12:33 PM Adriane Inman RN Active * Because of a physical, mental, or emotional condition, do you have difficulty doing errands alone such as visiting a doctor's office or shopping? Answer Date of Assessment Author Status No 05/14/2021 12:33 PM Adriane Inman RN Active documented as of this encounter Mental Status * Because of a physical, mental, or emotional condition, do you have serious difficulty concentrating, remembering, or making decisions? Answer Entry Date Author Status No 05/14/2021 12:33 PM Adriane Inman RN Active documented in this encounter Plan of Treatment Not on file documented as of this encounter Visit Diagnoses Not on filedocumented in this encounter Care Teams Prototype Machinist Relationship Specialty Start Date End Date None, Provider, PCP - General 11/07/20 documented as of this encounter
--- OUTSIDE RECORDS SUMMARY | 2024-08-05 00:14 | XMS_ITS | Encounter Summary ---
Author Organization [facility] Address [address] [place] [address]. [place], [place] [id number] [place] [id number] Care Team Providers Care Appeals Officer Name Role Phone None, Provider Primary Care Provider Unavaila ble Encounter Details Date Type Department Care Team (Late st Contact Info) Description 11/30/2020 Orders Only [facility] [address] [place], [place] [id number] Reyes Johnson MD [address] [facility], [address] [place] [address] Social History Tobacco Use Types Packs/Day Years [...] Binge Drinking Not on file 09/2019 Comments Yes Sex and Gender Information Value Date Recorded Sex Assigned at Not on file Legal Sex Female 7:05 PM CDT Gender Identity Not on file Sexual Orientation Not on file COVID-19 Exposure Response Date Recorded In the last month, have you been in contact with someone who was confirmed or suspected to have Coronavirus / COVID-19? No / Unsure 11/30/2020 9:19 AM CDT documented as of this encounter Plan of Treatment Not on file documented as of this encounter Visit Diagnoses Not on filedocumented in this encounter Care Teams Appeals Officer Relationship Specialty Start Date End Date None, Provider, PCP - General 11/07/20 documented as of this encounter
--- OUTSIDE RECORDS SUMMARY | 2024-08-05 00:14 | XMS_ITS | Encounter Summary ---
Author Organization [facility] Address [address] [place] [address]. [place], [place] [id number] [place] [address] Care Team Providers Care Care Advocate Name Role Phone None, Provider Primary Care Provider Unavaila ble Encounter Details Date Type Department Care Team (Latest Contact Info) Description 11/30/2020 9:15 AM CDT - 11/30/2020 11:59 PM CDT Hospital Encounter [facility] [place] [address] Reyes Johnson MD [address] [place] [address], [address] [place], [place] [id number] Discharge Disposition: Home or Self Care (Routine Discharge) Social History Tobacco Use Types Packs/Day Years [...] AM CDT documented as of this encounter Medications at Time of Discharge doxylamine 25 MG tablet Take 1 tablet (25 mg total) by mouth nightly as needed for Sleep. 30 tablet 11/08/2020 05/13/2021 methylPREDNISolon e, LEANNE, 4 MG tablet 6 TABLETS ON DAY ONE, 5 TABLETS DAY TWO, 4 TABLETS DAY THREE, 3 TABLETS DAY FOUR, 2 TABLETS DAY FIVE, AND 1 TABLET DAY SIX 1 each 11/08/2020 05/13/2021 ondansetron 4 MG tablet Take 4 mg by mouth every 8 (eight) hours as needed for Nausea. 05/14/2021 28-0.8 MG tablet Take 1 tablet by mouth daily. 05/13/2021 Pyridoxine HCl 25 MG Tab Take 25 mg by mouth nightly as needed (for nausea/vomiti ng). 30 tablet 11/08/2020 05/13/2021 vitamin D2, ergocalciferol, 25362 UNITS capsule Take 50,000 Units by mouth twice a week. 10/19/2020 05/13/2021 documented as of this encounter Plan of Treatment Not on file documented as of this encounter Procedures Procedure Name Priority Date/Time Associated Diagnosis Comments ANTIBODY SCREEN Routine 11/30/2020 10:15 AM CDT documented in this encounter Results * ANTIBODY SCREEN (11/30/2020 10:15 AM CDT) ANTIBODY SCREEN NEGATIVE 11/30/2020 1:38 PM CDT [facility] 11/30/2020 10:1 5 AM CDT us Reyes Johnson MD BLOOD BANK TEST ORDERABLES Fin al Result [facility] [address] [place] [address], [place] [phone] documented in this encounter Visit Diagnoses Not on filedocumented in this encounter Care Teams Care Advocate Relationship Specialty Start Date End Date None, Provider, PCP - General 11/07/20 documented as of this encounter
--- OUTSIDE RECORDS SUMMARY | 2024-08-05 00:14 | XMS_ITS | Encounter Summary ---
Author Organization [facility] Address [address] [place] [address]. [place], [place] [id number] [place] [address] Care Team Providers Care Science Manager Name Role Phone None, Provider Primary Care Provider Unavaila ble Encounter Details Date Type Department Care Team (Latest Contact Info) Description 05/12/2021 Travel Social History Tobacco Use Types Packs/Day [...] have Coronavirus / COVID-19? No / Unsure 05/12/2021 9:07 PM CDT documented as of this encounter Plan of Treatment Not on file documented as of this encounter Visit Diagnoses Not on filedocumented in this encounter Care Teams Science Manager Relationship Specialty Start Date End Date None, Provider, PCP - General 11/07/20 documented as of this encounter
--- OUTSIDE RECORDS SUMMARY | 2024-08-05 00:14 | XMS_ITS | Encounter Summary ---
Author Organization [facility] Address [address] [place] [address]. [place], [place] [address] [place] [address] Care Team Providers Care Electron Microprobe Operator Name Role Phone None, Provider MD Primary Care Provider Unavaila ble Encounter Details Date Type Department Care Team (Late st Contact Info) Description 08/19/2022 Orders Only [facility] [address] [place] [address] Zo Merchant MD [address] [facility] [employer] [address] [place] [address] Social History Tobacco Use Types Packs/Day Years [...] Recorded In the last 10 days, have yo u been in contact with someone who was confirmed or suspected to have Coronavirus/COVID-19? No / Unsure 08/19/2022 8:09 AM DIALS INSPECTOR documented as of this encounter Functional Status [...] Author Status No 05/14/2021 12:33 PM CDT Adriane Anthony RN Active * Do you have difficulty dressing or bathing? Answer Date of Assessment Author Status No 05/14/2021 12:33 PM MELVINAT Adriane Anthony RN Active * Because of a physical, [...] on file documented as of this encounter Results * PROGESTERONE (08/19/2022 8:14 AM DIALS INSPECTOR) [facility] PROGESTERONE 35.0 NG/ML 08/19/2022 1:55 PM DIALS INSPECTOR [facility] Comment: NON- FEMALES: [facility] SUPPLEMENTATION WILL CAUSE FALSELY ELEVATED RESULTS FOR PROGESTERONE IN PATIENTS BEING TREATED WITH THIS DRUG. PHYSICIANS USING PROGESTERONE LEVELS A CRITERION FOR FRESH EMBRYO TRANSFER IN PATIENTS SUPPLEMENTED WITH [employer] SHOULD ASSESS PROGESTERONE LEVELS USING AN ASSAY THAT IS NOT IMPACTED BY [employer]-S CROSS REACTIVITY. IT IS POSSIBLE THAT LC-MS CHROMATOGRAPHIC ASSAYS FOR PROGESTERONE MAY NOT BE IMPACTED BY [facility]-S. 08/19/2022 8:14 AM DIALS INSPECTOR us Zo Merchant MD LABORATORY Final Res ult [facility] [address] [place] [address], documented in this encounter Visit Diagnoses Diagnosis Investigation and testing for procreation management- Primary Other investigation and testing for procreative management documented in this encounter Care Teams Electron Microprobe Operator Relationship Specialty Start Date End Date None, Provider, PCP - General 11/07/20 documented as of this encounter
--- OUTSIDE RECORDS SUMMARY | 2024-08-05 00:14 | XMS_ITS | Encounter Summary ---
Author Organization [facility] Address [address] [place] [address]. [place], [place] [id number] [place] [id number] Care Team Providers Care Party Director Name Role Phone None, Provider Primary Care Provider Unavaila ble Reason for Visit * Reason Comments Allergic Reaction Encounter Details Date Type Department Care Team (Late st Contact Info) Description 06/23/2021 5:30 PM CDT - 06/23/2021 11:10 PM CDT Emergency [facility] [place] [address] Casandra Arita MD [address] [place] [address] Allergic Reaction Discharge Disposition: Home or Self Care (Routine [...] have Coronavirus / COVID-19? No / Unsure 06/23/2021 6:38 PM CDT documented as of this encounter Last Filed Vital Signs Vital Sign Reading Time Taken Comments Blood Pressure 113/63 06/23/2021 8:00 PM CDT Pulse 74 06/23/2021 10:30 PM CDT Temperature 36.7 ??C (98.1 ??F) 06/23/2021 10:09 PM C DT Respiratory Rate 15 06/23/2021 10:30 PM CDT Oxygen Saturation 99% 06/23/2021 10:30 PM CDT Inhaled Oxygen Concentration - - Weight 51.3 kg (113 lb) 06/23/2021 5:30 PM CDT Height 157.5 cm (5' 2 ) 06/23/2021 5:30 PM CDT Body Mass Index 20.67 06/23/2021 5:30 PM CDT documented in this encounter Functional Status * RETIRED Are [...] PM CDT Adriane Anthony RN Active * Because of a physical, mental, or emotional condition, do you have difficulty doing errands alone such as visiting a doctor's office or shopping? Answer Date of Assessment Author Status No 05/14/2021 12:33 PM CDT Adriane Anthony RN Active documented as of this encounter Mental Status * Because of a physical, mental, or emotional condition, do you have serious difficulty concentrating, remembering, or making decisions? Answer Entry Date Author Status No 05/14/2021 12:33 PM CDT Adriane Anthony RN Active documented in this encounter Discharge Instructions * Discharge Instructions* Casandra Arita MD - 06/23/2021 10:47 PM CDT Return to ER for new or worsening symptoms, particularly rash, vomiting, swelling or shortness of breath. * Attachments The following attachments cannot be sent through Care Everywhere. * High Potassium Diet (Citizen [place]) * Hypokalemia Discharge Instructions ([place]) * Panic Disorder Discharge Instructions ([place]izen [place]) documented in this encounter ED Notes * Leah Hidalgo RN - 06/23/2021 10:55 PM CDT Provider discussed today's findings with the patient. The patient has been given information regarding their treatment, follow up and concerning symptoms for which they should seek urgent or emergentattention. All questions answered. Pt ambulated out of ED with all personal belongings. IV d/c, vitals stable. * Gabe Jung RN - 06/23/2021 5:37 PM CDT PT brought ot ED via EMS from [facility] care with c/o Allergic Reaction. PT had a DEPO shotearlier this afternoon and felt her throat tigtening up shortly after. PT stopped at urgent care and was given epinephrin. PT felt some relief, but then startd having convulsions. PT is awake during episodes and able to answer questions. PT A&OX4. PT vitals stable at this time. * Casandra Arita MD - 06/23/2021 5:32 PM CDT [place], [place] EMERGENCY DEPARTMENT ENCOUNTER Chief Complaint Chief Complaint Patient presents with ??? Allergic Reaction History of Present Illness Provider at Bedside Date/Time Event User Comments 06/23/21 4547 Provider at Bedside Assessing Patient CASANDRA ARITA History provided by: EMS personnel rubber trimmer used: No Allergic Reaction Associated symptoms: shortness of breath Associated symptoms: no abdominal pain, no chest pain, no cough, no diarrhea, no fever, no headaches, no nausea, no rash and no sore throat Heavileigh ann Ernandez is a [id number]-year-old female with a PMH of anxiety, depression, POTS, PTSD, seizures presents to the ED by EMS from [facility] for evaluation of possible allergic reaction to Depot shot received at approx 1530 today. Per EMS, Pt reports onset of shortness of breath and felt likeher throat was swelling shortly after receiving Depot shot. Pt reports that she did not have her Epi pen with her so she went to [facility]. She received 1 shot of Epi while there. EMS was called. There was no redness or rashes. Then she began to have uncontrollable shaking. EMS notes pt was awake and talking during these shaking spells. Notes history of seizure disorder and states they usually become more frequent w/ increased stress. Pt reports feeling anxious. She is currently 9 weeks . Pt admitted to this facility 05/12- for seizures. Today was the first time she had received the Depot shot. Medical History ALLERGIES: Allergies Allergen Reactions ??? Pcn [Penicillin V] Anaphylaxis ??? Wasp Venom Anaphylaxis ??? Rocephin [Ceftriaxone] Other (see comment) numbness MEDICATIONS: Prior to Admission medications Not on File PAST MEDICAL HISTORY: Past Medical History: Diagnosis Date ??? Anxiety ??? Depression ??? POTS (postural orthostatic tachycardia syndrome) ??? PTSD (post-traumatic stress disorder) ??? Seizures (CMS/HCC) PAST SURGICAL HISTORY: Past Surgical History: Procedure Laterality Date ??? EYE SURGERY FAMILY HISTORY: Family History Problem Relation Name Age of Onset ??? Seizures Mother SOCIAL HISTORY: Social History Tobacco Use ??? Smoking status: Never Smoker ??? Smokeless tobacco: Never Used Substance Use Topics ??? Alcohol use: Never ??? Drug use: Never Review of Systems Review of Systems Constitutional: Negative for chills and fever. HENT: Negative for sore throat. Eyes: Negative for pain. Respiratory: Positive for shortness of breath. Negative for cough. Cardiovascular: Negative for chest pain. Gastrointestinal: Negative for abdominal pain, diarrhea and nausea. Endocrine: Negative for polyuria. Genitourinary: Negative for dysuria. Skin: Negative for rash. Neurological: Negative for dizziness and headaches. Psychiatric/Behavioral: Negative for behavioral problems. The patient is nervous/anxious. See HPI for further details. All systems negative except as marked. Physical Exam Filed Vitals: 06/23/21 1900 06/23/21 1930 06/23/21199906/23/212208 BP: 108/53 115/70 113/63 Pulse: 117 117 73 Resp: 17 14 17 Temp: 98.1 ??F (36.7 ??C) TempSrc: Oral SpO2: 98% 99% 99% 100% Weight: Height: Physical Exam Vitals and nursing note reviewed. Constitutional: Appearance: She is well-developed. HENT: Head: Normocephalic and atraumatic. Eyes: Conjunctiva/sclera: Conjunctivae normal. Cardiovascular: Rate and Rhythm: Regular rhythm. Tachycardia present. Pulmonary: Effort: Pulmonary effort is normal. Breath sounds: Normal breath sounds. No stridor. Abdominal: Palpations: Abdomen is soft. Tenderness: There is no abdominal tenderness. Musculoskeletal: General: No deformity. Cervical back: Neck supple. Skin: General: Skin is warm and dry. Coloration: Skin is pale. Neurological: Mental Status: She is alert and oriented to person, place, and time. Comments: While EMS giving report to nurse pt again began shaking but stopped as soon as EMS said her name. Psychiatric: Mood and Affect: Mood is anxious. Comments: +Jittery Diagnostic Studies / Procedures ELECTROCARDIOGRAMS: No results found for this visit on 06/23/21. LABORATORY STUDIES: Results for orders placed or performed during the hospital encounter of 06/23/21 CBC W/DIFF AUTOMATED Result Value Ref Range WBC 8.8 4.5 - 13.0 x10'3/uL RBC 4.26 4.20 - 5.40 x10'6/uL HGB 10.1 (L) 12.0 - 16.0 G/DL HCT 32.1 (L) 38.0 - 48.0 % MCV 75.4 (L) 81.0 - 99.0 FL MCH 23.7 (L) 27.0 - 31.0 PG MCHC 31.5 (L) 32.0 - 36.0 G/DL RDW 15.1 (H) 11.5 - 14.5 % PLT 466 (H) 130 - 400 x10'3/uL MPV 8.8 (L) 9.3 - 12.2 FL DIFFERENTIAL TYPE AUTOMATED DIFFERENTIAL NEUTROPHILS 65.2 % LYMPHOCYTES 28.8 % MONOCYTES 2.6 % EOSINOPHILS 2.6 % BASOPHILS 0.5 % IMMATURE GRANS 0.3 % ABS. NEUTROPHILS TOTAL 5.72 1.80 - 8.00 x10'3/uL ABS. LYMPHOCYTES 2.53 1.20 - 5.20 x10'3/uL ABS. MONOCYTES 0.23 (L) 0.24 - 0.86 x10'3/uL ABS. EOSINOPHILS 0.23 0.04 - 0.36 x10'3/uL ABS. BASOPHILS 0.04 0.01 - 0.08 x10'3/uL ABS. IMMATURE GRANULOCYTES 0.03 0.00 - 0.49 x10'3/uL BASIC METABOLIC PANEL Result Value Ref Range GLUCOSE 116 (H) 70 - 99 MG/DL BUN 10 7 - 18 MG/DL CREATININE S/P/B 0.89 0.55 - 1.02 MG/DL SODIUM 143 136 - 145 MMOL/L POTASSIUM 2.5 (LL) 3.5 - 5.1 MMOL/L CHLORIDE S/P/B 113 (H) 100 - 108 MMOL/L CO2 18.9 (L) 21 - 32 MMOL/L CALCIUM 8.7 8.5 - 10.1 MG/DL ANION GAP 11.1 5 - 15 MMOL/L BUN CREATININE RATIO 11.2 6 - 26 eGFR Non-Afr. Amer. >90 >90 ML/MIN/1.73 M2 eGFR Afr. Amer. >90 >90 ML/MIN/1.73 M2 URINALYSIS Result Value Ref Range Specimen Type URINE CLEAN CATCH COLOR (U) YELLOW TRANSPARENCY CLEAR Specific [place] (U) 1.020 1.001 - 1.030 U PH 6.0 5.0 - 9.0 LEUKOCYTE ESTERASE NEGATIVE NEGATIVE NITRITES 2+ (A) NEGATIVE PROTEIN (U) NEGATIVE <30 MG/DL URINE GLUCOSE NORMAL NORMAL MG/DL U KETONES NEGATIVE NEGATIVE MG/DL UROBILINOGEN NORMAL NORMAL MG/DL BILIRUBIN (U) NEGATIVE NEGATIVE MG/DL BLOOD NEGATIVE NEGATIVE CULTURE & SENSITIVITY INDICATED? SPECIMEN SETUP FOR CULTURE MUCUS RARE /LPF WBC/HPF 4 <6 /HPF RBC/HPF 1 <6 /HPF SQUAMOUS EPITHELIALS RARE /HPF POTASSIUM, SERUM Result Value Ref Range POTASSIUM 3.8 3.5 - 5.1 MMOL/L IMAGING STUDIES No orders to display ED Course / Medical Decision Making ED Course as of Jun 23 2251 [facility] Jun 23, 2021 1857 Patient with anemia, however improved from baseline. Patient with hypokalemia, will replace with both oral and IV potassium. [] 2237 Repeat K normal. [] 223 Doubt anaphylactic reaction as pt with no skin or mucosal involvement and no reduced BP or endstage organ dysfunction and no GI symptoms. Suspect this is a panic reaction. Pt improved with ativan. Pt observed in ER for over 5 hours with no further issues or symptoms. Given strict return precautions. [] ED Course User Index [] Casandra Arita MD Pulse Ox Interpretation: Saturation: 99 (%) Oxygen Delivery: RA Interpretation: No acute hypoxia at this time. Rhythm strip interpretation: Rhythm sinus tachy 133. No ectopy. Data reviewed: All current, pertinent and timely studies (laboratory, imaging, and procedures) wereordered and results reviewed by Casandra Arita MD unless otherwise noted. Triage notes and available nursing notes reviewed. Previous medical record reviewed when available. Repeat vital signs reviewed. Medications sodium chloride 0.9% bolus infusion SOLN 1,000 mL (0 mLs Intravenous Infusion Stop Time 06/23/211906) LORazepam (ATIVAN) injection 1 mg (1 mg Intravenous Given 06/23/211751) potassium chloride CR (K-TAB) tablet 40 mEq (40 mEq Oral Given 06/23/211905) potassium chloride 20 mEq in sodium chloride 0.9 % 250 mL IV Infusion (0 mEq Intravenous Infusion Stop Time 06/23/212122) ketorolac (TORADOL) injection 15 mg (15 mg Intravenous Given 06/23/21 193) Clinical Impression Panic attack (Primary) Hypokalemia There are no discharge medications for this patient. Disposition: Discharge Follow-Up: Provider Dung, MD Pérez, Uzma Jurado, acting as a scribe, am personally taking down the notes in the presence of Casandra Arita MD. Take no action on this note until reviewed and authenticated by the physician. Casandra Arita MD 06/23/212250 * Madison Salvador RN - 06/23/2021 5:30 PM CDT Bed: 13 Expected date: Expected time: Means of arrival: Ambulance - [place] Comments: Medic 3 documented in this encounter Plan of Treatment Not on file documented as of this encounter Procedures Procedure Name Priority Date/Time Associated Diagnosis Comments POTASSIUM, SERUM STAT 06/23/2021 10:0 6 PM CDT URINE BACTERIA CULTURE Routine 06/23/2021 8:00 PM CDT HC URINALYSIS AUTO W/O MICRO STAT 06/23/2021 7:57 PM CDT BASIC METABOLIC PANEL STAT 06/23/2021 6:02 PM CDT CBC W/DIFF AUTOMATED STAT 06/23/2021 6:02 PM CDT documented in this encounter Results * POTASSIUM, SERUM (06/23/2021 10:06 PM CDT) POTASSIUM S/P/B 3.8 3.5 - 5.1 MMOL/L 06/23/2021 10:30 PM CDT [facility] 06/23/2021 10:0 6 PM CDT Casandra Arita MD LABORATORY Final Result [facility] [address] [place] [address], [place] [phone] * (ABNORMAL) CULTURE URINE (06/23/2021 8:00 PM CDT) SPEC DESCRIPTION URINE CLEAN CATCH 06/23/2021 8:10 PM CDT [facility] SPECIAL REQUESTS NO SPECIAL REQUEST 06/23/2021 8:10 PM CDT [facility] CULTURE RESULT 10,000-49,0 00 COL/ML STAPH. SPECIES NOT STAPH. AUREUS (A) 06/26/2021 9:16 AM NET SOFTWARE DEVELOPER [facility] URINE SPECIMEN OBTAINED BY CLEAN CATCH PROCEDURE / Unknown 06/23/2021 8:00 PM CDT 06/23/2021 8:09 PM CDT Narrative Organism Antibiotic Method Susceptibility Staph. species not staph. aureus NITROFURANTOIN THU (V ITEK) <=16: Sensitive Staph. species not staph. aureus LEVOFLOXACIN THU (VIT EK) <=0.12: Sensitive Staph. species not staph. aureus OXACILLIN THU (VIT EK) <=0.25: Sensitive Staph. species not staph. aureus PENICILLIN G THU (VIT EK) 0.25: Resistant Staph. species not staph. aureus TRIMETH-SULFAMETH. RI C (VITEK) <=10: Sensitive Staph. species not staph. aureus TETRACYCLINE THU (VIT EK) <=1: Sensitive us Casandra Arita MD MICROBIOLOGY - GENERAL ORDERA BLES Final Result [facility] [address] [place] [address], [place] [phone] * (ABNORMAL) URINALYSIS (06/23/2021 7:57 PM CDT) SPECIMEN TYPE URINE CLEAN CATCH 06/23/2021 8:01 PM CDT [facility] COLOR (U) YELLOW 06/23/2021 8:09 PM CDT [facility] TRANSPARENCY CLEAR 06/23/2021 8:09 PM CDT [facility] SPECIFIC GRAVITY (U) 1.020 1.001 - 1.030 06/23/2021 8:09 PM CDT [facility] U PH 6.0 5.0 - 9.0 06/23/2021 8:09 PM CDT [facility] LEUKOCYTES (U) NEGATIVE NEGATIVE 06/23/2021 8:09 PM CDT [facility] NITRITES 2+(A) NEGATIVE 06/23/2021 8:09 PM CDT [facility] PROTEIN (U) NEGATIVE <30 MG/DL 06/23/2021 8:09 PM CDT [facility] URINE GLUCOSE NORMAL NORMAL MG/DL 06/23/2021 8:09 PM CDT [facility] KETONES MG/DL (U) NEGATIVE NEGATIVE MG/DL 06/23/2021 8:09 PM CDT [facility] UROBILINOGEN NORMAL NORMAL MG/DL 06/23/2021 8:09 PM CDT [facility] BILIRUBIN (U) NEGATIVE NEGATIVE MG/DL 06/23/2021 8:09 PM CDT [facility] BLOOD (U) NEGATIVE NEGATIVE 06/23/2021 8:09 PM CDT [facility] CULTURE & SENSITIVITY INDICATED? SPECIMEN SETUP FOR CULTURE 06/23/2021 8:09 PM CDT [facility] MUCUS RARE /LPF 06/23/2021 8:09 PM CDT [facility] WBC/HPF 4 <6 /HPF 06/23/2021 8:09 PM CDT [facility] RBC/HPF 1 <6 /HPF 06/23/2021 8:09 PM CDT [facility] SQUAMOUS EPITHELIALS RARE /HPF 06/23/2021 8:09 PM CDT [facility] URINE SPECIMEN OBTAINED BY CLEAN CATCH PROCEDURE / Unknown 06/23/2021 7:57 PM CDT us Casandra Arita MD URINE ORDERABLES Final Result [facility] [address] [place] [address], [place] [phone] * (ABNORMAL) BASIC METABOLIC PANEL (06/23/2021 6:02 PM CDT) [facility] GLUCOSE 116(H) 70 - 99 MG/DL 06/23/2021 6:52 PM CDT [facility] BUN 10 7 - 18 MG/DL 06/23/2021 6:52 PM CDT [facility] CREATININE S/P/B 0.89 0.55 - 1.02 MG/DL 06/23/2021 6:52 PM CDT [facility] SODIUM S/P/B 143 136 - 145 MMOL/L 06/23/2021 6:52 PM CDT [facility] POTASSIUM S/P/B 2.5(LL) 3.5 - 5.1 MMOL/L 06/23/2021 6:52 PM CDT [facility] Comment:DAVID CALLED CRITICAL RESULTS AT 23Jun2021 TO AND READ BACK BY SANTIAGO Lopez CHLORIDE S/P/B 113(H) 100 - 108 MMOL/L 06/23/2021 6:52 PM CDT [facility] CO2 18.9(L) 21 - 32 MMOL/L 06/23/2021 6:52 PM CDT [facility] CALCIUM S/P/B 8.7 8.5 - 10.1 MG/DL 06/23/2021 6:52 PM CDT [facility] ANION GAP 11.1 5 - 15 MMOL/L 06/23/2021 6:52 PM CDT [facility] BUN CREATININE RATIO 11.2 6 - 26 06/23/2021 6:52 PM CDT [facility] EGFR NON-AFR. AMER. >90 >90 ML/MIN/1.7 3 M2 06/23/2021 6:52 PM CDT [facility] EGFR AFR. AMER. >90 >90 ML/MIN/1.7 3 M2 06/23/2021 6:52 PM CDT [facility] Comment: NOTE: eGFR is not calculated for patients <18 years of age. This is an estimated GFR (CKD EPI) and should not be used for calculating drug doses. 06/23/2021 6:02 PM CDT us Casandra Arita MD LABORATORY Final Result [facility] [address] [place] [address], [place] [phone] * (ABNORMAL) CBC W/DIFF AUTOMATED (06/23/2021 6:02 PM CDT) WBC 8.8 4.5 - 13.0 x10'3/uL 06/23/2021 6:20 PM CDT [facility] RBC 4.26 4.20 - 5.40 x10'6/uL 06/23/2021 6:20 PM CDT [facility] HGB 10.1(L) 12.0 - 16.0 G/DL 06/23/2021 6:20 PM CDT [facility] HCT 32.1(L) 38.0 - 48.0 % 06/23/2021 6:20 PM CDT [facility] MCV 75.4(L) 81.0 - 99.0 FL 06/23/2021 6:20 PM CDT [facility] MCH 23.7(L) 27.0 - 31.0 PG 06/23/2021 6:20 PM CDT [facility] MCHC 31.5(L) 32.0 - 36.0 G/DL 06/23/2021 6:20 PM CDT [facility] RDW 15.1(H) 11.5 - 14.5 % 06/23/2021 6:20 PM CDT [facility] PLT 466(H) 130 - 400 x10'3/uL 06/23/2021 6:20 PM CDT [facility] MPV 8.8(L) 9.3 - 12.2 FL 06/23/2021 6:20 PM CDT [facility] DIFFERENTIAL TYPE AUTOMATED DIFFERENTIAL 06/23/2021 6:20 PM CDT [facility] NEUTROPHILS % 65.2 % 06/23/2021 6:20 PM CDT [facility] LYMPHOCYTES % 28.8 % 06/23/2021 6:20 PM CDT [facility] MONOCYTES % 2.6 % 06/23/2021 6:20 PM CDT [facility] EOSINOPHILS 2.6 % 06/23/2021 6:20 PM CDT [facility] BASOPHILS 0.5 % 06/23/2021 6:20 PM CDT [facility] IMMATURE GRANS % 0.3 % 06/23/20 6:20 PM CDT [facility] ABS. NEUTROPHILS TOTAL 5.72 1.80 - 8.00 x10'3/uL 06/23/2021 6:20 PM CDT [facility] ABS. LYMPHOCYTES 2.53 1.20 - 5.20 x10'3/uL 06/23/2021 6:20 PM CDT [facility] ABS. MONOCYTES 0.23(L) 0.24 - 0.86 x10'3/uL 06/23/2021 6:20 PM CDT [facility] ABS. EOSINOPHILS 0.23 0.04 - 0.36 x10'3/uL 06/23/2021 6:20 PM CDT [facility] ABS. BASOPHILS 0.04 0.01 - 0.08 x10'3/uL 06/23/2021 6:20 PM CDT [facility] ABS. IMMATURE GRANULOCYTES 0.03 0.00 - 0.49 x10'3/uL 06/23/2021 6:20 PM CDT [facility] 06/23/2021 6:02 PM CDT us Casandra Arita MD LABORATORY Final Result [facility] [address] [place] [address], [place] [phone] documented in this encounter Visit Diagnoses Diagnosis Panic attack- Primary Panic disorder without agoraphobia Hypokalemia Hypopotassemia documented in this encounter Administered Medications Inactive Administered Medications - up to 3 most recent administrations Medication Order MAR Action Action Date Dose Rate Site ketorolac (TORADOL) injection 15 mg 15 mg, Intravenous, Once, 1 dose, On Bhumika 06/23/21 at 1945, For IV administration, give over 15 seconds. Given 06/23/2021 7:38 PM CDT 15 mg LORazepam (ATIVAN) 2 MG/ML injection 1 dose, Starting on Bhumika 06/23/21 at 1750, Until Bhumika 06/23/21 at 1752, Created by cabinet override For IV use, further dilute with an equal volume of saline. Do not exceed a rate of 2 mg/min. LORazepam (ATIVAN) injection 1 mg 1 mg, Intravenous, Once, 1 dose, On Bhumika 06/23/21 at 1800, For IV use, further dilute with an equal volume of saline. Do not exceed a rate of 2 mg/min. Given 06/23/2021 5:52 PM CDT 1 mg potassium chloride 20 mEq in sodium chloride 0.9 % 250 mL IV Infusion 20 mEq, Intravenous, Administer over 120 Minutes, Once, 1 dose, On Bhumika 06/23/21 at 1900, MAX rate in peripheral line of 10 mEq per hour. New Bag 06/23/2021 7:07 PM CDT 20 mEq 125 mL/hr potassium chloride CR (K-TAB) tablet 40 mEq 40 mEq, Oral, Once, 1 dose, On Bhumika 06/23/21 at 1900, Do not break, chew, or crush. Given 06/23/2021 7:06 PM CDT 40 mEq sodium chloride 0.9% bolus infusion SOLN 1,000 mL 1,000 mL, Intravenous, Administer over 15 Minutes, Once, 1 dose, On Bhumika 06/23/21 at 1745 New Bag 06/23/2021 5:59 PM CDT 1,000 mLs documented in this encounter Active and Recently Administered Medications Times are shown in CDT. Scheduled Medication Order 06/21/2021 06/22/2021 06/23/2021 ketorolac (TORADOL) injection 15 mg (COMPLETED) 15 mg, Intravenous, Once, 1 dose, On Bhumika 06/23/21 at 1945, For IV administration, give over 15 seconds. 193 (Given - Provid er: Leah Hidalgo RN) LORazepam (ATIVAN) injection 1 mg (COMPLETED) 1 mg, Intravenous, Once, 1 dose, On Bhumika 06/23/21 at 1800, For IV use, further dilute with an equal volume of saline. Do not exceed a rate of 2 mg/min. 175 (Given - Provid er: Gabe Jung RN) potassium chloride 20 mEq in sodium chloride 0.9 % 250 mL IV Infusion (COMPLETED) 20 mEq, Intravenous, Administer over 120 Minutes, Once, 1 dose, On Bhumika 06/23/21 at 1900, MAX rate in peripheral line of 10 mEq per hour. 1906 (New Bag - Prov ider: Leah Hidalgo RN)2122 (Infusion Stop Time - Provider: Anila Dyson RN) potassium chloride CR (K-TAB) tablet 40 mEq (COMPLETED) 40 mEq, Oral, Once, 1 dose, On Bhumika 06/23/21 at 1900, Do not break, chew, or crush. 1905 (Given - Provid er: Leah Hidalgo RN) sodium chloride 0.9% bolus infusion SOLN 1,000 mL (COMPLETED) 1,000 mL, Intravenous, Administer over 15 Minutes, Once, 1 dose, On Bhumika 06/23/21 at 1745 1759 (New Bag - Prov ider: Gabe Jung RN)1907 (Infusion Stop Time - Provider: Anila Dyson RN) documented in this encounter Care Teams Party Director Relationship Specialty Start Date End Date None, Provider, PCP - General 11/07/20 documented as of this encounter
--- OUTSIDE RECORDS SUMMARY | 2024-08-05 00:14 | XMS_ITS | Encounter Summary ---
Author Organization [facility] Address [address] [place] [address]. [place], [place] [id number] [place] [id number] Care Team Providers Care Diabetes Educator Name Role Phone None, Provider MD Primary Care Provider Unavaila ble Encounter Details Date Type Department Care Team (Late st Contact Info) Description 12/13/2023 7:45 AM CDT - 12/13/2023 11:59 PM CDT Hospital Encounter [facility] Diagnostic Imaging [address] [place] [address] Vira Toure MD [address] [place] [id number] Discharge Disposition: Home or Self Care (Routine [...] on file Sexual Orientation Not on file documented as of this encounter Functional Status [...] Anthony RN Active documented in this encounter Plan of Treatment Not on file documented as of this encounter Procedures Procedure Name Priority Date/Time Associated Diagnosis Comments XR KNEE RT 3V Routine 12/13/2023 8:19 AM CDT Pain documented in this encounter Results * XR KNEE RT 3V (12/13/2023 8:19 AM CDT) Anatomical Region Laterality Modality Knee Radiographic Chiqui ging 12/13/2023 9:55 AM CDT Impressions 12/13/2023 9:56 AM CDT =====IMPRESSION:===== No radiographic abnormality. Ordered By: VIRA TOURE Interpreted By: Navneet Couch MD, 12/13/2023 9:55 AM Narrative 12/13/2023 9:56 AM CDT Examination: Right knee 3 views Exam date/time: 12/13/2023 8:09 AM Reason For Exam: ??pain ? Injury Comparison: No prior exam Technique: 3 views of the right knee were obtained. Findings: Medial and lateral joint spaces are within normal limits. Patellofemoral joint relationship appears normal. No evidence of fracture or acute osseous abnormality. No radiographic evidence of joint effusion. No evidence of abnormal soft tissue densities about the right knee. Procedure Note Navneet Couch MD - 12/13/2023 Examination: Right knee 3 views Exam date/time: 12/13/2023 8:09 AM Reason For Exam: pain Injury Comparison: No prior exam Technique: 3 views of the right knee were obtained. Findings: Medial and lateral joint spaces are within normal limits.Patellofemoral joint relationship appears normal. No evidence of fractureor acute osseous abnormality. No radiographic evidence of joint effusion.No evidence of abnormal soft tissue densities about the right knee. =====IMPRESSION:===== No radiographic abnormality. Ordered By: VIRA TOURE Interpreted By: Navneet Couch MD, 12/13/2023 9:55 AM us Vira Toure MD GENERAL IMAGING Final Res ult documented in this encounter Visit Diagnoses Diagnosis Pain Generalized pain documented in this encounter Care Teams Diabetes Educator Relationship Specialty Start Date End Date None, Provider, PCP - General 11/07/20 documented as of this encounter
--- OUTSIDE RECORDS SUMMARY | 2024-08-05 00:14 | XMS_ITS | Encounter Summary ---
Author Organization [facility] Address [address] [place] [address]. [place], [place] [id number] [place] [id number] Care Team Providers Care Termite Control Service Representative Name Role Phone None, Provider Primary Care Provider Unavaila ble Encounter Details Date Type Department Care Team (Latest Contact Info) Description 11/30/2020 Travel Social History Tobacco Use Types Packs/Day [...] on filedocumented in this encounter Care Teams Termite Control Service Representative Relationship Specialty Start Date End Date None, Provider, PCP - General 11/07/20 documented as of this encounter
--- OUTSIDE RECORDS SUMMARY | 2024-08-05 00:14 | XMS_ITS | Encounter Summary ---
Author Organization [facility] Address [address] [place] [address]. [place], [place] [id number] [place] [id number] Care Team Providers Care Model Maker Apprentice Name Role Phone None, Provider MD Primary Care Provider Unavaila ble Reason for Referral * Imaging (Urgent) - Closed Specialty Diagnoses / Procedures Referred By Contac t Referred To Contact RADIOLOGY Procedures MRV HEAD WWO Pricila Chambers APRN [address] [place] [address] Phone: tel: fax: Referral ID Status Reason Start Date Expiration Date Visits Re quested Visits Authorized [id number] Closed 05/13/2021 06/12/2022 1 1 * Imaging (Emergency) - Closed Specialty Diagnoses / Procedures Referred By Contac t Referred To Contact RADIOLOGY Procedures CT HEAD WO CON Rogers Cabrera MD,PHD [address] [place] [address] Phone: tel: fax: Referral ID Status Reason Start Date Expiration Date Visits Re quested Visits Authorized [id number] Closed 05/12/2021 06/11/2022 1 1 Reason for Visit * Reason Comments Seizure- Prior History Of * Auth/Cert Specialty Diagnoses / Procedures Referred By Contac t Referred To Contact Diagnoses Seizures (CMS/HCC [facility]/HCC) Seizures (CMS/[facility]) Referral ID Status Reason Start Date Expiration Date Visits Re quested Visits Authorized [id number] 1 1 Encounter Details Date Type Department Care Team (Late st Contact Info) Description 05/12/2021 9:20 PM CDT - 05/14/2021 1:15 PM CDT Hospital Encounter [facility] [place] [address] Rogers Cabrera MD,PHD [address] [place] [id number] David Quevedo MD [address] [place], [place] [id number] [phone] (Work) Candido Benites MD 1 [facility] [place], [place] [address] [phone] (Work) Sandro Treviño, DO 3 [facility] [address] [place] [phone] Seizure- Prior History Of Discharge Disposition: Home or Self Care (Routine [...] Sign Reading Time Taken Comments Blood Pressure 111/77 05/14/2021 11:56 AM CDT Pulse 92 05/14/2021 11:56 AM CDT Temperature 36.7 ??C (98.1 ??F) 05/14/2021 11:56 AM C DT Respiratory Rate 14 05/14/2021 11:56 AM CDT Oxygen Saturation 100% 05/14/2021 11:56 AM CDT Inhaled Oxygen Concentration - - Weight 55 kg (121 lb 4.1 oz) 05/14/2021 4:51 AM CDT Height 157.5 cm (5' 2 ) 05/12/2021 9:25 PM CDT Body Mass Index 22.18 05/12/2021 9:25 PM CDT documented in this encounter Functional Status * Question Answer Date of Assessment Author Status Do you have serious difficulty walking or climbing stairs? No 05/14/2021 12:33 PM CDT Adriane Anthony RN Active Do you have difficulty dressing or bathing? No 05/14/2021 12:33 PM CDT Adriane Anthony RN Active Because of a physical, mental, or emotional condition, do you have difficulty doing errands alone such as visiting a doctor's office or shopping? No 05/14/2021 12:33 PM MELVINAT Adriane Anthony RN A ctive * RETIRED Are you deaf or do [...] as of this encounter Mental Status * Question Answer Entry Date Author Status Because of a physical, mental, or emotional condition, do you have serious difficulty concentrating, remembering, or making decisions? No 05/14/2021 12:33 PM CDT Adriane Anthony RN Active * Because of a physical, mental, or emotional condition, do you have serious difficulty concentrating, remembering, or making decisions? Answer Entry Date Author Status No 05/14/2021 12:33 PM CDT Adriane Anthony RN Active documented in this encounter Discharge Summaries * Sandro Treviño DO - 05/14/2021 12:17 PM CDT Physician Discharge Summary Patient ID: Lorri Ernandez [id number] 20-year-old 2000 Primary Care Physician: Gabriela Razo MD Admit date: 05/12/2021 Expected Discharge Date: 05/14/2021 Admitting Physician: David Quevedo MD Discharge Physician: Sandro Treviño DO Admission Diagnoses: Seizures (CMS/[facility]) [R56.9] Discharge Diagnoses: Seizure Admission Condition: fair Discharged Condition: good Indication for Admission: Seizure, Altered mental status Hospital Course: Lorri Ernandez is a 20-year-old female With past medical history significant for anxiety, depression, POTS, and Seizure disorder. The pt presented To the ER after experiencing uncontrolled seizures at home. Continual seizure activity observed in ER. She stated Until admitting her seizures had been very well controlled. She is currently managed per Pediatric Neurologist Dr Ronquillo who has been managing her care since 2018. She was last evaluated in 08/[address] Ronquillo. Pt has not established an adult neurologist thus far. Last seizure was approximately 8-9 months prior to admission. Pt reported she has been under intense stress and sleep deprivation since the arrival of her baby 2 weeks ago. She also reports epidural complications during the that resultedin severe/uncontrolled headaches and required a blood patch. ?? Her mother was able to provide further information at bedside and noted she had witnessed at least 5 seizures in route. Pt reports in the past her seizures were simple partial seizures. Her mother states she has never witnessed severe seizure like those at admission. The seizure she observed were like grand-mal seizures. Her mother witnessed [address] to ER. ?? Pt experienced severe headaches and slurred speech initially; however now improving. Denies visual disturbances, dizziness, focal weakness, numbness/tingling, increased confusion and gait abnormality. ?? Pt denies any recent acute illness. Denies cough, chills, rigors, and febrile events. ?? It was noted that hte patients Trileptal dosing was decreased during her after initially being discontinued. Neurology was consulted and CT of the Head as well as an MRA of the head was performed. All within normal limits.Neurology increased the dosing of her medications and advised follow up with her neurologist as soon as possible. Additionally the patient was noted to have a UTI and was treated for this as well On the day of discharged the patient was medically stable to be discharged home with follow up. Consults: neurology Code Status: Full Code Procedures: Procedures (From admission, onward) CBC W/DIFF AUTOMATED Routine BASIC METABOLIC PANEL Routine MAGNESIUM Routine MRV HEAD WWO STAT CULTURE, BACTERIA, BLOOD (BLOOD CULTURE X2) Routine CULTURE, BACTERIA, BLOOD (BLOOD CULTURE X2) Routine TSH W/REFLEX Routine CULTURE URINE Routine VITAMIN B-12 STAT FOLIC ACID SERUM STAT IRON SAT PANEL (IRON,IBC,%SAT) STAT FERRITIN STAT CBC W/DIFF AUTOMATED STAT COMPREHENSIVE METABOLIC PANEL STAT RAPID DRUG SCREEN STAT EEG STAT CK (CPK) Routine CT HEAD WO CON STAT PHOSPHORUS,INORGANIC PHOSPHATE STAT CARBAMAZEPINE TOTAL STAT PROLACTIN STAT TYPE AND SCREEN STAT CBC W/DIFF AUTOMATED STAT COMPREHENSIVE METABOLIC PANEL STAT LACTIC ACID (LACTIC ACID - PANEL) STAT (with TIMED occurrences), Status: Canceled MAGNESIUM STAT URINALYSIS STAT Referrals: No orders of the defined types were placed in this encounter. Significant Diagnostic Studies: Treatments: Rocephin, Trileptal Discharge Exam: Physical Exam Constitutional: She is oriented to person, place, and time and well-developed, well-nourished, and in no distress. No distress. HENT: Head: Normocephalic and atraumatic. Eyes: Pupils are equal, round, and reactive to light. Cardiovascular: Normal rate, regular rhythm and normal heart sounds. Pulmonary/Chest: Effort normal and breath sounds normal. Abdominal: Soft. Bowel sounds are normal. Musculoskeletal: General: Normal range of motion. Cervical back: Normal range of motion. Neurological: She is alert and oriented to person, place, and time. Skin: Skin is warm and dry. She is not diaphoretic. Disposition: Home or Self Care (Routine Discharge) Time Spent on Discharge: Greater than 30 minutes Patient Instructions: Current Discharge Medication List START taking these medications Details influenza virus vaccine, QUAD, 0.5 ML injection Inject 0.5 mLs into the muscle once for 1 dose. Qty: 0.5 mL, Refills: 0 nitrofurantoin, macrocrystal-monohydrate, 100 MG capsule Take 1 capsule (100 mg total) by mouth 2 (two) times daily for 3 days. Qty: 6 capsule, Refills: 0 CONTINUE these medications which have CHANGED Details OXcarbazepine 300 MG tablet Take 1 tablet (300 mg total) by mouth 2 (two) times daily for 30 days. Qty: 60 tablet, Refills: 0 vitamin, low iron, 27-0.8 MG tablet Take 1 tablet by mouth daily for 30 days. Qty: 30 tablet, Refills: 0 STOP taking these medications ondansetron 4 MG tablet 28-0.8 MG tablet Activity: activity as tolerated Diet: regular diet Wound Care: none needed Follow-up with Neurologist within 3 days from discharge. Follow up sooner if repeat seizure activity. Signed: SANDRO TREVIÑO DO 05/14/2021 12:17 PM documented in this encounter Discharge Instructions * Attachments The following attachments cannot be sent through Care Everywhere. * Seizures Discharge Instructions, Adult ([place]) documented in this encounter Medications at Time of Discharge nitrofurantoin, macrocrystal-mono hydrate, 100 MG capsule Take 1 capsule (100 mg total) by mouth 2 (two) times daily for 3 days. 6 capsule 05/14/2021 05/17/2021 OXcarbazepine 300 MG tablet Take 1 tablet (300 mg total) by mouth 2 (two) times daily for 30 days. 60 tablet 05/14/2021 06/13/2021 vitamin, low iron, 27-0.8 MG tablet Take 1 tablet by mouth daily for 30 days. 30 tablet 05/15/2021 06/14/2021 documented as of this encounter Progress Notes * Sandro Treviño, DO - 05/14/2021 11:58 AM CDT DAILY PROGRESS NOTE SUBJECTIVE: No acute events overnight. Patient watching her baby over facetime. Denies any pain recurrent seizures or other issues. Would like to go home Review of Systems: Review of Systems Constitutional: Negative for chills, diaphoresis, fever, malaise/fatigue and weight loss. Eyes: Negative for blurred vision and double vision. Respiratory: Negative for cough and hemoptysis. Cardiovascular: Negative for chest pain and palpitations. Gastrointestinal: Negative for heartburn and vomiting. Neurological: Negative for dizziness, tingling, tremors, sensory change and headaches. OBJECTIVE: Vitals: Blood pressure 111/77, pulse 92, temperature 98.1 ??F (36.7 ??C), temperature source Oral, resp. rate 14, height 5' 2 (1.575 m), weight 55 kg (121 lb 4.1 oz), last menstrual period 07/06/2020, SpO2 100 %, currently ., Body mass index is 22.18 kg/m??. Temp: [97.5 ??F (36.4 ??C)-98.4 ??F (36.9 ??C)] 98.1 ??F (36.7 ??C) Pulse: [64-103] 92 Resp: [14-20] 14 BP: (111-122)/(69-91) 111/77 Physical Exam: Physical Exam Constitutional: She is oriented to person, place, and time and well-developed, well-nourished, and in no distress. No distress. HENT: Head: Normocephalic and atraumatic. Eyes: Pupils are equal, round, and reactive to light. EOM are normal. Cardiovascular: Normal rate and regular rhythm. Pulmonary/Chest: Effort normal and breath sounds normal. Abdominal: Soft. Bowel sounds are normal. She exhibits no distension. There is no abdominal tenderness. Musculoskeletal: General: Normal range of motion. Cervical back: Normal range of motion and neck supple. Neurological: She is alert and oriented to person, place, and time. Skin: She is not diaphoretic. I/O's: Intake/Output Summary (Last 24 hours) at 05/14/2021 1159 Last data filed at 05/14/2021 1100 Gross per 24 hour Intake 240 ml Output -- Net 240 ml Labs: Recent Labs Lab 05/12/21213105/13/2152305/14/21 0505 NA 143 144 141 K 3.5 3.6 3.9 CL 110* 110* 107 CO2 26.8 26.2 27.2 AGAP 6.2 7.8 6.8 BUN 8 11 12 GFR >90 >90 >90 GFRNON >90 >90 >90 CA 9.5 9.4 10.5* GLU 89 76 73 Recent Labs Lab 05/12/21213105/13/2152305/14/21 0505 WBC 10.7 9.1 9.0 RBC 3.54* 3.36* 3.80* HGB 8.9* 8.3* 9.4* HCT 28.3* 27.3* 30.3* MCV 79.9* 81.3 79.7* MCH 25.1* 24.7* 24.7* MCHC 31.4* 30.4* 31.0* RDW 15.3* 15.5* 15.6* PLT 451* 365 417* MPV 8.8* 8.4* 8.6* PERLYM 29.5 31.5 27.4 PERMON 6.6 6.8 6.2 L[facility]MC 3.15 2.86 2.48 MONOC 0.71 0.62 0.56 EOSC 0.35 0.31 0.31 BASOC 0.10* 0.11* 0.11* DTYPE AUTOMATED DIFFERENTIAL AUTOMATED DIFFERENTIAL AUTOMATED DIFFERENTIAL Cultures: Urine Cx pending Radiology studies: EXAMINATION: CT of the head without contrast EXAM DATE/TIME: 05/12/2021 10:18 PM REASON FOR EXAM: status epilepticus See Comments to the Radiologist COMPARISON: 07/21/2020 Findings: Noncontrast CT of the head. DOSE OPTIMIZATION: This facility uses dose optimization techniques as appropriate to perform exams,including at least one of the following techniques: Automated exposure control, Adjustment of the mA and/or KV according to patient size, Use of iterative reconstructive technique. No evidence for intracranial hemorrhage, acute stroke, mass or mass-effect. The ventricular system is normal appearance with no evidence for dilatation or midline shift. No intra or extra-axial fluidcollections or masses are seen. The paranasal sinuses are clear. The bilateral mastoid air cells are relatively well-aerated. The calvarial structures are negative for fracture. INDICATION: Uncontrolled seizures. Concern for dural venous sinus thrombosis. EXAMINATION: MRV of the brain. TECHNIQUE: Multiplanar and multisequence MRI images of the head were obtained before and after uneventful intravenous administration of 10 mL Dotarem. Both the source images and 3-D/MIP images were reviewed. COMPARISON: Head CT 05/12/2021 FINDINGS: There is patent flow related and contrast enhancement within the superior sagittal sinus, internal cerebral veins, basal veins of Aura, vein of [place], straight sinus, torcular Herophili, transverse sinuses, and sigmoid sinuses. The left transverse and sigmoid sinuses are developmentally hypopla stic. Visualized portions of the proximal major segments of the [place] are grossly patent. Ventricles and extra-axial/subarachnoid spaces unremarkable. No extra-axial collections. No intracranial mass effect or midline shift. Proximal portions of the major intracranial vascular flow voidsare grossly patent. Mastoid air cells clear. Mild mucosal thickening in the paranasal sinuses. Visualized orbits unremarkable. ?? IMPRESSION: 1. No evidence of thrombosis of the major dural venous sinuses. ASSESSMENT AND PLAN: Patient is a 20-year-old female with PMHx of seizure disorder presenting with witnessed seizure. Seizure disorder Head CT within normal limits MRA head also within normal limits. Patient was initially on 600 mg twice daily of Trileptal and was tapered off during her . She had a possible seizure during her her and they restarted her on 150 mg of Trileptal twice daily. Her levels were subtherapeutic. EEG within normal limits here in the hospital. Per neurology increase to 300 mg po BID Recs from telemetry neuro noted and appreciated. Recommend follow-up with her outpatient neurologist and she will have an appointment with them in the next few days. UTI: Currently being treated with rocephin. Cx pending. Will transition to PO Post Pt post- 2 weeks ?? Reports epidural complications that resulted in severe/uncontrolled headaches and required a blood patch ?? Microscopic/microcytic anemia Hgb=8.9 Check B12/foalte, iron panel, ferritin Has been stable over the last 24hrs and is now a 9.4 ?? Thrombocytosis Ajyn=172 Continue to monitor ?? CODE: FULL CODE POA: Pt does not have a medical POA. Her medical point of contact is her mother Kenyatta Deshpande ?? VTE: SCDs for now SANDRO TREVIÑO DO * Adriane Anthony RN - 05/14/2021 9:08 AM CDT Problem: Reduced risk for falls/injury Goal: Reduced Risk for Falls/Injury Outcome: Progressing No falls or injury. Call light within reach. Problem: Pain Goal: Patient's pain/discomfort is manageable Description: Assess and monitor patient's pain using appropriate pain scale. Collaborate with interdisciplinary team and initiate plan and interventions as ordered. Re-assess patient's pain level 30 - 60 minutes after pain management intervention. Outcome: Progressing No complaints of pain. Problem: Discharge Barriers Goal: Patient's discharge needs are met Description: Collaborate with interdisciplinary team and initiate plans and interventions as needed. Outcome: Progressing Patient agrees with current plan of care and goals for discharge. * Yue Briggs RN - 05/13/2021 11:00 PM CDT Problem: Reduced risk for falls/injury Goal: Reduced Risk for Falls/Injury Outcome: Progressing Goal: Reduced Risk of Confusion (Acute vs Chronic) Outcome: Progressing Goal: Reduced Risk of Symptomatic Depression Outcome: Progressing Goal: Reduced Risk of Altered Elimination Outcome: Progressing Goal: Reduced Risk of Dizziness/Vertigo/Balance Outcome: Progressing Goal: Reduced Risk of Polypharmacy Outcome: Progressing Problem: Anemia Goal: Blood count within specified parameters Outcome: Progressing * Candido Benites MD - 05/13/2021 4:05 PM CDT I have seen and examined the patient. I reviewed the H&P note and agree with the findings and plan of care Patient has been seizure free since last night. Her speech is back to normal. She denied CP, SOB, n/v, headache. MRV showed no evidence of thrombosis of the major dural venous sinuses. Extended EEG showed normal awake and stage I and II sleep. Cont with oxcarbazepine 300 mg BID, which is double from her home dose. Monitor and replete K, Mg, phos. F/u with TSH Re-consult neurology Patient denied dysuria, increased frequency, UA showed 500 of LE, + 2 nitrite, >100 WBC. Start Ceftriaxone (patient has hx of numbness with it, intolerance, not true allergy. Discussed with patient and pharmacy). f/u with urine and blood cultures Physical Exam: Gen: Alert, cooperative, no distress Head: Normocephalic, without obvious abnormality, atraumatic Eyes: Conjunctivae/corneas clear, EOMI Nose: Mucosa normal. No drainage. Throat: Moist mucous membranes Neck: trachea midline Back: Symmetric, no curvature Resp: CTAB, no wheezes/rales/rhonchi CV: RRR, S1S2, No M/R/G Abd: S/NT/ND, BS+, no bruits Ext: No clubbing, cyanosis, edema Skin: Skin color, texture, turgor normal. No rashes or lesions Neuro: No focal deficits CANDIDO BENITES MD * Jane Valladares PharmD - 05/13/2021 10:44 AM CDT DVT prophylaxis Risk Factors: none Risk Score: 0 Risk Stratification: low- no ppx indicated Will update VTE risk stratification in chart. documented in this encounter H&P Notes * Pricila Chambers APRN - 05/13/2021 12:39 AM CDT Hospitalist History and Physical Patient: Lorri Ernandez Date: 05/13/2021 female, 20-year-old Admit Date: 05/12/2021 Attending: David Quevedo MD REASON FOR ADMISSION: Uncontrolled seizures HISTORY OF PRESENT ILLNESS: Lorri Ernandez is a 20-year-old female With past medical history significant for anxiety, depression, POTS, and Seizure disorder. The pt presents to ER after experiencing uncontrolled seizures at home. Continual seizure activity observed in ER. Upon my assessment, pt is A/O x 3. She states until now her seizures have been very well controlled. She is currently managed per Pediatric Neurologist Dr Ronquillo who has been managing her care since 2018. She was last evaluated in 08/[address] Ronquillo. Pt has not established an adult neurologistthus far. Last seizure was approximately 8-9 months ago. Pt reports she has been under intense stress and sleep deprivation since the arrival of her newbornbaby 2 weeks ago. She also reports epidural complications during the that resulted in severe/uncontrolled headaches and required a blood patch. Her mother is at bedside and witnessed multiple seizures. Pt reports in the past her seizures were simple partial seizures. Her mother states she has never witnessed severe seizure like tonight. The seizure she observed were like grand-mal seizures. Her mother witnessed [address] to ER. Pt experienced severe headaches and slurred speech initially; however now improving. Denies visual disturbances, dizziness, focal weakness, numbness/tingling, increased confusion and gait abnormality. Pt denies any recent acute illness. Denies cough, chills, rigors, and febrile events. Pt reports she has been eating and drinking without difficulty. Denies abdominal pain, n/v/d, melena, hemtochezia and hematemesis. She has been urinating without difficulty; Denies dysuria and hematuria. Pt denies CP, diaphoresis, palpitations, sob presyncopal or syncopal episiodes. Pt will be admitted for further evaluation and treatment. I anticipate she will require greater than a 2 midnight stay. Allergy Allergies Allergen Reactions ??? Pcn [Penicillin V] Anaphylaxis ??? Wasp Venom Anaphylaxis ??? Rocephin [Ceftriaxone] Other (see comment) numbness Medication list Prior to Admission medications Medication Sig Start Date End Date Taking? Authorizing Provider doxylamine 25 MG tablet Take 1 tablet (25 mg total) by mouth nightly as needed for Sleep. 11/08/20 Boogie Camejo PA-C methylPREDNISolone, LEANNE, 4 MG tablet 6 TABLETS ON DAY ONE, 5 TABLETS DAY TWO, 4 TABLETS DAY THREE, 3 TABLETS DAY FOUR, 2 TABLETS DAY FIVE, AND 1 TABLET DAY SIX 11/08/20 Boogie Camejo PA-C ondansetron 4 MG tablet Take 4 mg by mouth every 8 (eight) hours as needed for Nausea. Doc Abstract 28-0.8 MG tablet Take 1 tablet by mouth daily. Doc Abstract Pyridoxine HCl 25 MG Tab Take 25 mg by mouth nightly as needed (for nausea/vomiting). 11/08/20 DANYELLE Onofre vitamin D2, ergocalciferol, 40207 UNITS capsule Take 50,000 Units by mouth twice a week. 10/19/20 DocAbstract Past Medical History Past Medical History: Diagnosis Date ??? Anxiety ??? Depression ??? POTS (postural orthostatic tachycardia syndrome) ??? PTSD (post-traumatic stress disorder) ??? Seizures (CMS/HCC) Past Surgical History: Procedure Laterality Date ??? EYE SURGERY Social History Social History Socioeconomic History ??? Marital status: Single Spouse name: Not on file ??? Number of children: Not on file ??? Years of education: Not on file ??? Highest education level: Not on file Occupational History ??? Not on file Tobacco Use ??? Smoking status: Never Smoker ??? Smokeless tobacco: Never Used Substance and Sexual Activity ??? Alcohol use: Never ??? Drug use: Never ??? Sexual activity: Not on file Other Topics Concern ??? Not on file Social History Narrative ??? Not on file Social Determinants of Health Financial Resource Strain: ??? Difficulty of Paying Living Expenses: Food Insecurity: ??? Worried About Running Out of Food in the Last Year: ??? Ran Out of Food in the Last Year: Transportation Needs: ??? Lack of Transportation (Medical): ??? Lack of Transportation (Non-Medical): Physical Activity: ??? Days of Exercise per Week: ??? Minutes of Exercise per Session: Stress: ??? Feeling of Stress : Social Connections: ??? Frequency of Communication with Friends and Family: ??? Frequency of Social Gatherings with Friends and Family: ??? Attends Gnosticist Services: ??? Active Member of Clubs or Organizations: ??? Attends Club or Organization Meetings: ??? Marital Status: Intimate Partner Violence: ??? Fear of Current or Ex-Partner: ??? Emotionally Abused: ??? Physically Abused: ??? Sexually Abused: Family History Family History Problem Relation Name Age of Onset ??? Seizures Mother REVIEW OF SYSTEMS: A 14 point review of systems was taken and pertinent positive as per HPI PHYSICAL EXAMINATION: Vital 24 Hour Range Most Recent Value Temperature Temp Min: 98.9 ??F (37.2 ??C) Max: 98.9 ??F (37.2 ??C) 98.9 ??F (37.2 ??C) Pulse Pulse Min: 57 Max: 73 57 Respiratory Resp Min: 20 Max: 20 20 Blood Pressure BP Min: 106/69 Max: 153/95 106/69 Pulse Oximetry SpO2 Min: 99 % Max: 100 % 99 % O2 No data recorded Vital Most Recent Value First Value Weight 52 kg (114 lb 10.2 oz) Weight: 52 kg (114 lb 10.2 oz) Height 5' 2 (157.5 cm) Height: 5' 2 (157.5 cm) BMI 21 N/A Physical Exam: -GENERAL: No acute distress, breathing comfortably on room air. -EYES: Extraocular movements intact -ENT: Neck supple, -LUNG: Clear to auscultation bilaterally, No wheezes, No crackles -CVS: Regular rate rhythm, S1 and S2 normal, No murmurs, -ABDOMEN: Soft, nondistended, Nontender, Bowel sounds observed -EXT: no lower Ext edema. -NEURO: Alert, awake, oriented x3, No gross neuro deficit -SKIN: Skin color, texture, turgor normal. No rashes or lesions Intake/Output last 3 shifts: I/O last 3 completed shifts: In: 100 [IV Piggyback:100] Out: - Labs: Recent Labs Lab 05/12/21 213 NA 143 K 3.5 CL 110* CO2 26.8 AGAP 6.2 BUN 8 CR 0.66 BUNCREATININ 12.0 GFRNON >90 GFR >90 GLU 89 CA 9.5 MAGNESIUM 1.9 PHOS 3.3 Recent Labs Lab 05/12/212131 WBC 10.7 RBC 3.54* HGB 8.9* HCT 28.3* MCV 79.9* MCH 25.1* MCHC 31.4* PLT 451* RDW 15.3* MPV 8.8* Recent Labs Lab 05/12/21 2132 AST 13* ALT 22 No results for input(s): INR, PTT in the last 168 hours. Invalid input(s): ABG arterial blood gases No results for input(s): TROP, TROPIWB, CPK in the last 168 hours. Invalid input(s): CK-MB No results for input(s): PH, PCO2, PO2, [id number], BICARBWB, BASEDEFICIT, BASEEXCESS in the [id number] hours. Imagining & Other Studies EXAMINATION: CT of the head without contrast EXAM DATE/TIME: 05/12/2021 10:18 PM REASON FOR EXAM: status epilepticus See Comments to the Radiologist COMPARISON: 07/21/2020 Findings: Noncontrast CT of the head. DOSE OPTIMIZATION: This facility uses dose optimization techniques as appropriate to perform exams,including at least one of the following techniques: Automated exposure control, Adjustment of the mA and/or KV according to patient size, Use of iterative reconstructive technique. No evidence for intracranial hemorrhage, acute stroke, mass or mass-effect. The ventricular system is normal appearance with no evidence for dilatation or midline shift. No intra or extra-axial fluidcollections or masses are seen. The paranasal sinuses are clear. The bilateral mastoid air cells are relatively well-aerated. The calvarial structures are negative for fracture. Impression: Noncontrast CT head is within normal limits. Referred By: ROGERS CABRERA Interpreted By: Aiden Samuel MD, 05/12/2021 11:05 PM Assessment & Plan Seizure disorder Head CT as above Telemetry Seizure precautions Neuro checks Fall precautions NPO until evaluated. Bedside swallow test. Continuous pulse ox ER provider discussed the case with Sr Head's Neurologist who recs: Increase to 300 mg po BID MRI + Venogram and EEG in am Rec FU consult with Tele-neuro after testing completed Post Pt post- 2 weeks Reports epidural complications that resulted in severe/uncontrolled headaches and required a blood patch Breast pump to bedside please Microscopic/microcytic anemia Hgb=8.9 Check B12/foalte, iron panel, ferritin Continue to monitor Thrombocytosis Fohr=822 Continue to monitor CODE: FULL CODE POA: Pt does not have a medical POA. Her medical point of contact is her mother Kenyatta Deshpande VTE: SCDs for now Cosigned by David Quevedo MD at 05/13/2021 3:48 AM CDT Associated attestation - David Quevedo MD - 05/13/2021 3:48 AM CDT Patient seen and examined. [employer] OFFICER note reviewed. This is a 20-year-old female with previous history of seizures presenting with generalized tonic-clonic seizures 2 weeks . Improved with Keppra given in ER. General: Sleepy. No acute distress CV: Regular rate and rhythm Pulmonary: Clear to auscultation. Nonlabored Extremities: No significant edema Agree with plan as outlined above. MRV pending. Neurology consult appreciated. Increase Trileptal to 300 mg twice daily. Less likely eclampsia. Blood pressures elevated initially but now improved. We will continue to monitor these. Replace K to bring up closer to 4. I, DAVID QUEVEDO MD, performed a History and Physical examination of the patient and discussed the management with the Advanced Practice Provider (RITESH). I reviewed the RITESH's note and agree with the findings and plan of care, except as I have documented. documented in this encounter Procedure Notes * Garry Artis MD - 05/13/2021 3:59 PM CDTAssociated Order(s): EEG Routine EEG Report Patient Name: Lorri Ernandez [facility] Medical Record Number (MRN): [id number] Date of (): 2000 EEG Date: 05/12/2021 Ordering Provider: Candido Benites MD CC: Provider Dung, Start Time: 1:16 PM Duration: 20:24 Introduction: Lorri Ernandez is a 20-year-old female with a history of depression, anxiety, POTs, and seizures who presents after an event concerning for seizure. EEG was performed to evaluate for seizures. This is a 21 channel EEG recording acquired on a LeadiD acquisition system. Scalp electrodes were placed according to the international 10-20 System. The analog EEG was filtered from 1-70 Hz and digitally sampled at 100 Hz. The record was then reformatted for review in bipolar and referential montages. EEG Description: The awake background included a 11 Hz posterior rhythm which attenuated with eye opening and activity. During drowsiness, identified by ocular signs and alpha attenuation, there was intermittent, diffuse, asynchronous theta activity admixed with 2-4 Hz polymorphic frontotemporal delta activity. As the record progressed, stage II sleep was identified by vertex waves, sleep spindles and K-complexes. Hyperventilation was not performed. Photic strobe stimulation elicited no abnormalities. There were no focal, lateralized or epileptiform abnormalities. Single ECG channel showed regular cardiac rhythm. Interpretation: This is a normal awake and stage I and II sleep extended EEG. Of note, a normal EEG does not rule out seizure/epilepsy. Garry Artis MD documented in this encounter Consult Notes * Delon Yip MD - 05/14/2021 8:42 AM CDTSummary: Neurology Consult Attending Provider: Sandro Treviño DO PCP: Provider MD Dung Lorri Ernandez is an 20-year-old female. Reason for Admission: Seizures (CMS/[facility]) HPI: 20 y/o F with anxiety, depression, POTS, and seizures presents with a break through seizure described as grandmal She reports that her typical seizure semiology is starring off into space with subtle twitching on her hands. Her prior EEGs were unremarkable (unclear if episodes were captured during recordings) but she was then given a diagnoses of epilepsy clinically. She initially was at a dose of 600 mg bid before being titrated down to nothing during . However, at about 27 weeks or so during , she had a possible seizure and was therefore started back on trileptal 150 mg bid. She presents today with multiple generalized seizures. CT head and MRV were done and unremarkable. She has returned back to her baseline. Past Medical History: Diagnosis Date ??? Anxiety ??? Depression ??? POTS (postural orthostatic tachycardia syndrome) ??? PTSD (post-traumatic stress disorder) ??? Seizures (CMS/HCC) Allergies: Allergies Allergen Reactions ??? Pcn [Penicillin V] Anaphylaxis ??? Wasp Venom Anaphylaxis ??? Rocephin [Ceftriaxone] Other (see comment) numbness Social History Tobacco Use ??? Smoking status: Never Smoker ??? Smokeless tobacco: Never Used Substance Use Topics ??? Alcohol use: Never Past Surgical History: Procedure Laterality Date ??? EYE SURGERY Family History Problem Relation Name Age of Onset ??? Seizures Mother No current facility-administered medications on file prior to encounter. Current Outpatient Medications on File Prior to Encounter Medication Sig ??? ondansetron 4 MG tablet Take 4 mg by mouth every 8 (eight) hours as needed for Nausea. ??? OXcarbazepine 150 MG tablet Take by mouth 2 (two) times daily. Blood pressure 112/78, pulse 103, temperature 97.9 ??F (36.6 ??C), temperature source Oral, resp. rate 18, height 5' 2 (1.575 m), weight 55 kg (121 lb 4.1 oz), last menstrual period 07/06/2020, PoW106 %, currently . ROS Negative except as noted in HPI. Physical Exam NAD NC/AT Normal breathing effort Non-distended abdomen on inspection Neuro: Mental Status: Alert, orientated x3. Comprehension intact, Fluent Speech. Repetition and Naming intact. CN: EOMI, no facial asymmetry, tongue midline. Motor: No drift, b/l upper ext antigravity 10 seconds. B/l lower ext antigravity 5 seconds. Sensory: Intact to LT Cerebellar: FTN intact Assessment and Recommendations: --break through seizure. Semiology different than her typical semiology in that this seemed to be apossible GTC seizure. This is likely provoked in the setting of a UTI. Typical seizure semiology isdescribed as starring off with subtle twitching in her hands. She reports prior EEGs were unremarkable and she was given the diagnosis clinically. --she was told to continue to take her trileptal during . However, dose was decreased to 150 mg bid. Trileptal levels subtherapeutic at < 0.5. --CT head and MRV without acute findings. EEG obtained yesterday is unremarkable. --agree with increasing trileptal to 300 mg bid. Discussed risks/benefits of AED therapy in the setting of /breast feeding. --have asked patient to tell mother or family to record her seizure should they occur again. --seizure precautions including no driving discussed --needs close follow up with her neurologist DELON YIP MD 05/14/2021 Patient was seen today utilizing telemedicine services. Patient Location: [facility] [address] Dept: [phone] Dept documented in this encounter Nursing Notes * Tracy Brown RN - 05/13/2021 7:48 PM CDT Spoke with doctor regarding pt allergy to Rocephin. Pt reaction not noted to be a true allergy and to monitor with administration. documented in this encounter ED Notes * Stephy Fischer RN - 05/12/2021 11:10 PM CDT Pt still unable to void. * Stephy Fischer RN - 05/12/2021 10:32 PM CDT Blood sugar is 101. * Rogers Cabrera MD,PHD - 05/12/2021 10:01 PM CDT EMERGENCY DEPARTMENT ENCOUNTER Chief Complaint Chief Complaint Patient presents with ??? Seizure- Prior History Of History of Present Illness Provider at Bedside Date/Time Event User Comments 05/12/212116 Provider at Bedside Assessing Patient SANCHEZKRYSTLE Celine Ernandez is a [id number]-year-old female with a PMH of anxiety, depression, POTS, PTSD, seizures presents to the ED for evaluation of multiple seizures. The onset was sudden. The duration of the seizure is a few seconds to few minutes. The onset was sudden. They have been occurring for the last 2 hours. They are described by mother as periods of unresponsiveness with a very small amount of shaking. Patient is 2 weeks post-. Reports epidural complications that required a blood patch. She was placed back on Trileptal a few days ago. Reports decreased sleep over the past few days d/t taking care of . Pt currently c/o a headache that she describes as feels like an icicle through my head. Denies n/v. Last seizure reported as 12 months ago. Medical History ALLERGIES: Allergies Allergen Reactions ??? Pcn [Penicillin V] Anaphylaxis ??? Wasp Venom Anaphylaxis ??? Rocephin [Ceftriaxone] Other (see comment) numbness MEDICATIONS: Prior to Admission medications Medication Sig Start Date End Date Taking? Authorizing Provider doxylamine 25 MG tablet Take 1 tablet (25 mg total) by mouth nightly as needed for Sleep. 11/08/20 Boogie Camejo PA-C methylPREDNISolone, LEANNE, 4 MG tablet 6 TABLETS ON DAY ONE, 5 TABLETS DAY TWO, 4 TABLETS DAY THREE, 3 TABLETS DAY FOUR, 2 TABLETS DAY FIVE, AND 1 TABLET DAY SIX 11/08/20 Boogie Camejo PA-C ondansetron 4 MG tablet Take 4 mg by mouth every 8 (eight) hours as needed for Nausea. Doc Abstract 28-0.8 MG tablet Take 1 tablet by mouth daily. Doc Abstract Pyridoxine HCl 25 MG Tab Take 25 mg by mouth nightly as needed (for nausea/vomiting). 11/08/20 DANYELLE Onofre vitamin D2, ergocalciferol, 50952 UNITS capsule Take 50,000 Units by mouth twice a week. 10/19/20 DocAbstract PAST MEDICAL HISTORY: Past Medical History: Diagnosis Date ??? Anxiety ??? Depression ??? POTS (postural orthostatic tachycardia syndrome) ??? PTSD (post-traumatic stress disorder) ??? Seizures (CMS/HCC) PAST SURGICAL HISTORY: Past Surgical History: Procedure Laterality Date ??? EYE SURGERY FAMILY HISTORY: Seizure disorder in mother SOCIAL HISTORY: Social History Tobacco Use ??? Smoking status: Never Smoker ??? Smokeless tobacco: Never Used Substance Use Topics ??? Alcohol use: Never ??? Drug use: Never Review of Systems Constitutional: Negative for chills and fever, positive for generalized weakness Respiratory: Negative for cough and shortness of breath. Cardiovascular: Negative for chest pain, Negative for leg swelling Gastrointestinal: Negative for abdominal pain, Negative for nausea or vomiting Neurological:See HPI Genitourinary: Negative for flank pain, Negative for dysuria All other systems reviewed and are negative except as in HPI and as noted above Physical Exam Filed Vitals: 05/12/21 2125 05/12/21 2200 05/12/21 2230 05/13/21 0030 BP: (!) 153/95 (!) 147/103 118/85 106/69 Pulse: 70 73 57 Resp: 20 Temp: 98.9 ??F (37.2 ??C) TempSrc: Oral SpO2: 100% 99% 100% 99% Weight: 52 kg (114 lb 10.2 oz) Height: 5' 2 (1.575 m) CONSTITUTIONAL: Patient is awake, alert, in no acute distress, pale HEAD AND FACE: Normocephalic, atraumatic EYES: Normal sclera, extraocular motions grossly normal NECK: Supple, no obvious asymmetry CARDIOVASCULAR: RRR, normal S1-S2, no clicks murmurs rubs or gallops are appreciated RESPIRATORY: No respiratory distress or tachypnea, clear to auscultation bilaterally without rales,rhonchi, wheezes ABDOMEN: Soft, nontender, nondistended, NEUROLOGIC: GCS 15, CN2-12 grossly intact, moves all extremities w/ globally decreased tone. Difficulty with speech fluency. EXTREMITIES: Warm, no edema Diagnostic Studies / Procedures LABORATORY STUDIES: Results for orders placed or performed during the hospital encounter of 05/12/21 CBC W/DIFF AUTOMATED Result Value Ref Range WBC 10.7 4.5 - 13.0 x10'3/uL RBC 3.54 (L) 4.20 - 5.40 x10'6/uL HGB 8.9 (L) 12.0 - 16.0 G/DL HCT 28.3 (L) 38.0 - 48.0 % MCV 79.9 (L) 81.0 - 99.0 FL MCH 25.1 (L) 27.0 - 31.0 PG MCHC 31.4 (L) 32.0 - 36.0 G/DL RDW 15.3 (H) 11.5 - 14.5 % PLT 451 (H) 130 - 400 x10'3/uL MPV 8.8 (L) 9.3 - 12.2 FL DIFFERENTIAL TYPE AUTOMATED DIFFERENTIAL NEUTROPHILS 59.0 % LYMPHOCYTES 29.5 % MONOCYTES 6.6 % EOSINOPHILS 3.3 % BASOPHILS 0.9 % IMMATURE GRANS 0.7 % ABS. NEUTROPHILS TOTAL 6.31 1.80 - 8.00 x10'3/uL ABS. LYMPHOCYTES 3.15 1.20 - 5.20 x10'3/uL ABS. MONOCYTES 0.71 0.24 - 0.86 x10'3/uL ABS. EOSINOPHILS 0.35 0.04 - 0.36 x10'3/uL ABS. BASOPHILS 0.10 (H) 0.01 - 0.08 x10'3/uL ABS. IMMATURE GRANULOCYTES 0.07 0.00 - 0.49 x10'3/uL COMPREHENSIVE METABOLIC PANEL Result Value Ref Range GLUCOSE 89 70 - 99 MG/DL BUN 8 7 - 18 MG/DL CREATININE S/P/B 0.66 0.55 - 1.02 MG/DL SODIUM 143 136 - 145 MMOL/L POTASSIUM 3.5 3.5 - 5.1 MMOL/L CHLORIDE S/P/B 110 (H) 100 - 108 MMOL/L CO2 26.8 21 - 32 MMOL/L CALCIUM 9.5 8.5 - 10.1 MG/DL BILIRUBIN TOTAL S/P/B 0.2 0.2 - 1.2 MG/DL TOTAL PROTEIN S/P/B 7.0 6.4 - 8.2 G/DL ALBUMIN S/P/B 3.0 (L) 3.4 - 5.0 G/DL AST 13 (L) 15 - 37 U/L ALT 22 14 - 55 U/L ALKALINE PHOSPHATASE S/P/B 97 50 - 136 U/L ANION GAP 6.2 5 - 15 MMOL/L BUN CREATININE RATIO 12.0 6 - 26 A/G RATIO 0.8 (L) 1.0 - 2.0 RATIO eGFR Non-Afr. Amer. >90 >90 ML/MIN/1.73 M2 eGFR Afr. Amer. >90 >90 ML/MIN/1.73 M2 LACTIC ACID Result Value Ref Range LACTIC ACID 1.6 0.4 - 2.0 MMOL/L MAGNESIUM Result Value Ref Range MAGNESIUM 1.9 1.8 - 2.4 MG/DL CARBAMAZEPINE TOTAL Result Value Ref Range CARBAMAZEPINE S/P/B <0.5 (L) 4.0 - 12.0 MCG/ML DOSE UNKNOWN LAST DOSE PHOSPHORUS, INORGANIC PHOSPHATE Result Value Ref Range PHOSPHORUS 3.3 2.5 - 4.9 MG/DL Bedside Blood Glucose Result Value Ref Range GLUCOSE WHOLE BLOOD 87 70 - 100 mg/dL POCT glucose Result Value Ref Range GLUCOSE POC 87 70 - 99 mg/dL IMAGING STUDIES CT HEAD WO CON Final Result by User, [id number] (05/12 2308) EXAMINATION: CT of the head without contrast EXAM DATE/TIME: 05/12/2021 10:18 PM REASON FOR EXAM: status epilepticus See Comments to the Radiologist COMPARISON: 07/21/2020 Findings: Noncontrast CT of the head. DOSE OPTIMIZATION: This facility uses dose optimization techniques as appropriate to perform exams, including at least one of the following techniques: Automated exposure control, Adjustment of the mA and/or KV according to patient size, Use of iterative reconstructive technique. No evidence for intracranial hemorrhage, acute stroke, mass or mass-effect. The ventricular system is normal appearance with no evidence for dilatation or midline shift. No intra or extra-axial fluid collections or masses are seen. The paranasal sinuses are clear. The bilateral mastoid air cells are relatively well-aerated. The calvarial structures are negative for fracture. Impression: Noncontrast CT head is within normal limits. Referred By: ROGERS CABRERA Interpreted By: Aiden Samuel MD, 05/12/2021 11:05 PM ED Course / Medical Decision Making Patient presenting with a chief complaint of multiple seizures in the setting of a seizure disorder In the differential diagnosis I considered anemia or other hematologic abnormality, electrolyte derangement, metabolic derangement, liver dysfunction, renal dysfunction, intracranial hemorrhage, intracranial mass I personally witnessed a tonic-clonic seizure, though prior to Ativan being administered, spontaneously resolved. The patient was thus loaded with Keppra. I reviewed the patient's labs, which are unremarkable, as above I reviewed the radiologist's interpretation of the patient's radiologic diagnostics, which is unremarkable, as above (includes A CT of the brain) I discussed patient with neurology, who recommended increasing Trileptal to 300 mg and a routine MRV and EEG I discussed the patient with the admitting provider, requesting admission due to the number of seizures with a persistent difficulty with speech. I reviewed old medical records, obtained from care everywhere, as well as internal past medical records I interpreted the patient's pulse oximeter at rest, which is 100% on room air, which is normal and determined that this patient is not hypoxic I interpreted the patient's awake overnight monitor as showing a sinus rhythm and hemodynamic stability Critical care time time (40 minutes) spent evaluating, managing, documenting and providing care to the critical patient. This involved decision making of high complexity to assess, manipulate, and support vital organ system failure and/or to prevent further life threatening deterioration of the patient's condition. Time spent included being at the bedside, reviewing test results, discussing the case with staff, documenting the medical record and time spent with family members; excluding any procedures. The patient was at risk of neurologic deterioration and , possibly aspiration or respiratory failure given her recurrent seizures, which was at bedside, she was stabilized by the loadingof antiepileptics. Medications levETIRAcetam (KEPPRA) 2,000 mg in sodium chloride 0.9 % 100 mL IVPB (0 mg Intravenous Infusion Stop Time 05/12/21 263) Clinical Impression Recurrent seizures (CMS/HCC) (Primary) Difficulty with speech Disposition: Admission to hospitalist for further evaluation and treatment Rogers Cabrera MD,PHD 05/15/21 [id number] Rogers Cabrera MD,PHD 05/15/21 529 * Roxann No RN - 05/12/2021 9:21 PM CDT Bed: 16 Expected date: Expected time: Means of arrival: Comments: OSB * Krystle Sanchez PA-C - 05/12/2021 9:17 PM CDTSummary: seizure [place], [place] EMERGENCY DEPARTMENT ENCOUNTER Medical Screening Examination 05/12/21 9:20 PM Chief Complaint : Seizure- Prior History Of HPI : Lorri Ernandez is a 20-year-old female who presents c/o several seizures over the past 2 hours. On trileptal per neurologist. No injury during events. Vital Signs: There were no vitals filed for this visit. Physical exam: A brief physical exam was completed to facilitate/expedite patient care. Al[place] findings include: stable.No respiratory distress noted. Seizure activity noted in triage. Plan: labs, further assessment. VS to follow stat exam, as pt was expedited to main ED room 16 for physician evaluation. KRYSTLE SANCHEZ PA-C 05/12/2021 Krystle Sanchez PA-C 05/12/212121 Cosigned by Rogers Cabrera MD,PHD at 05/13/2021 6:18 AM CDT * Svetlana Schultz RN - 05/12/2021 9:14 PM CDT Pt presents to the ER with c/o seizures, has been having multiple seizures in the last 2 hours, Pt was just recently placed back on her medicines about 2 weeks ago. Took an extra dose of medicine because of her headache. All limbs shake, which is abnormal for her normal hands and feet shake, pt is having slurred speech also. documented in this encounter Plan of Treatment Not on file documented as of this encounter Procedures Procedure Name Priority Date/Time Associated Diagnosis Comments BASIC METABOLIC PANEL Routine 05/14/2021 5:05 AM CDT CBC W/DIFF AUTOMATED Routine 05/14/2021 5:05 AM CDT MAGNESIUM Routine 05/14/2021 5:05 AM CDT CULTURE, BACTERIA, BLOOD Routine 05/13/2021 4:18 PM CDT CULTURE, BACTERIA, BLOOD Routine 05/13/2021 4:18 PM CDT EEG STAT 05/13/2021 3:59 PM CDT HC URINALYSIS AUTO W/O MICRO STAT 05/13/2021 8:47 AM CDT URINE BACTERIA CULTURE Routine 8:47 AM CDT MRV HEAD WWO STAT 05/13/2021 7:54 AM CDT TSH W/REFLEX Routine 05/13/2021 5:24 AM CDT IRON SAT PANEL (IRON,IBC,%SAT) STAT 05/13/2021 5:24 AM CDT VITAMIN B-12 STAT 05/13/2021 5:24 AM CDT COMPREHENSIVE METABOLIC PANEL STAT 05/13/2021 5:24 AM CDT FOLIC ACID SERUM STAT 05/13/2021 5:24 AM CDT CBC W/DIFF AUTOMATED STAT 05/13/2021 5:24 AM CDT FERRITIN STAT 05/13/2021 5:24 AM CDT POCT GLUCOSE - FITZGERALD DOCKED DEVICE Routine 05/12/2021 10:[address] HEAD WO CON STAT 05/12/2021 10:18 PM CDT POCT BEDSIDE BLOOD GLUCOSE STAT 05/12/2021 9:43 PM CDT POCT GLUCOSE - FITZGERALD DOCKED DEVICE Routine 05/12/2021 9:42 PM CDT TYPE & SCREEN STAT 05/12/2021 9:32 PM CDT COMPREHENSIVE METABOLIC PANEL STAT 05/12/2021 9:32 PM CDT LACTIC ACID TIMED 05/12/2021 9:32 PM CDT CARBAMAZEPINE TOTAL STAT 05/12/2021 9 :32 PM CDT CBC W/DIFF AUTOMATED STAT 05/12/2021 9:32 PM CDT PHOSPHORUS, INORGANIC PHOSPHATE STAT 05/12/2021 9:32 PM CDT MAGNESIUM STAT 05/12/2021 9:32 PM CDT PROLACTIN STAT 05/12/2021 9:32 PM CDT CK (CPK) Routine 05/12/2021 9:32 PM CDT documented in this encounter Results * MAGNESIUM (05/14/2021 5:05 AM CDT) MAGNESIUM 2.0 1.8 - 2.4 MG/DL 05/14/2021 5:49 AM CDT [facility] 05/14/2021 5:05 AM CDT Candido Benites MD LABORATORY Final Result [facility] [address] [place] [address], [place] [phone] * (ABNORMAL) BASIC METABOLIC PANEL (05/14/2021 5:05 AM CDT) [facility] Signature GLUCOSE 73 70 - 99 MG/DL 05/14/2021 5:49 AM CDT [facility] BUN 12 7 - 18 MG/DL 05/14/2021 5:49 AM CDT [facility] CREATININE S/P/B 0.63 0.55 - 1.02 MG/DL 05/14/2021 5:49 AM CDT [facility] SODIUM S/P/B 141 136 - 145 MMOL/L 05/14/2021 5:49 AM CDT [facility] POTASSIUM S/P/B 3.9 3.5 - 5.1 MMOL/L 05/14/2021 5:49 AM CDT [facility] CHLORIDE S/P/B 107 100 - 108 MMOL/L 05/14/2021 5:49 AM CDT [facility] CO2 27.2 21 - 32 MMOL/L 05/14/2021 5:49 AM CDT [facility] CALCIUM S/P/B 10.5(H) 8.5 - 10.1 MG/DL 05/14/2021 5:49 AM CDT [facility] ANION GAP 6.8 5 - 15 MMOL/L 05/14/2021 5:49 AM CDT [facility] BUN CREATININE RATIO 19.0 6 - 26 05/14/2021 5:49 AM CDT [facility] EGFR NON-AFR. AMER. >90 >90 ML/MIN/1.7 3 M2 05/14/2021 5:49 AM CDT [facility] EGFR AFR. AMER. >90 >90 ML/MIN/1.7 3 M2 05/14/2021 5:49 AM CDT [facility] Comment: NOTE: eGFR is not calculated for patients <18 years of age. This is an estimated GFR (CKD EPI) and should not be used for calculating drug doses. 05/14/2021 5:05 AM CDT us Candido Benites MD LABORATORY Final Result [facility] [address] [place] [address], * (ABNORMAL) CBC W/DIFF AUTOMATED (05/14/2021 5:05 AM CDT) WBC 9.0 4.5 - 13.0 x10'3/uL 05/14/2021 5:40 AM CDT [facility] RBC 3.80(L) 4.20 - 5.40 x10'6/uL 05/14/2021 5:40 AM CDT [facility] HGB 9.4(L) 12.0 - 16.0 G/DL 05/14/2021 5:40 AM CDT [facility] HCT 30.3(L) 38.0 - 48.0 % 05/14/2021 5:40 AM CDT [facility] MCV 79.7(L) 81.0 - 99.0 FL 05/14/2021 5:40 AM CDT [facility] MCH 24.7(L) 27.0 - 31.0 PG 05/14/2021 5:40 AM CDT [facility] MCHC 31.0(L) 32.0 - 36.0 G/DL 05/14/2021 5:40 AM CDT [facility] RDW 15.6(H) 11.5 - 14.5 % 05/14/2021 5:40 AM CDT [facility] PLT 417(H) 130 - 400 x10'3/uL 05/14/2021 5:40 AM CDT [facility] MPV 8.6(L) 9.3 - 12.2 FL 05/14/2021 5:40 AM CDT [facility] DIFFERENTIAL TYPE AUTOMATED DIFFERENTIAL 05/14/2021 5:40 AM CDT [facility] NEUTROPHILS % 61.6 % 05/14/2021 5:40 AM CDT [facility] LYMPHOCYTES % 27.4 % 05/14/2021 5:40 AM CDT [facility] MONOCYTES % 6.2 % 05/14/2021 5:40 AM CDT [facility] EOSINOPHILS 3.4 % 05/14/2021 5:40 AM CDT [facility] BASOPHILS 1.2 % 05/14/2021 5:40 AM CDT [facility] IMMATURE GRANS % 0.2 % 05/14/20 5:40 AM CDT [facility] ABS. NEUTROPHILS TOTAL 5.56 1.80 - 8.00 x10'3/uL 05/14/2021 5:40 AM CDT [facility] ABS. LYMPHOCYTES 2.48 1.20 - 5.20 x10'3/uL 05/14/2021 5:40 AM CDT [facility] ABS. MONOCYTES 0.56 0.24 - 0.86 x10'3/uL 05/14/2021 5:40 AM CDT [facility] ABS. EOSINOPHILS 0.31 0.04 - 0.36 x10'3/uL 05/14/2021 5:40 AM CDT [facility] ABS. BASOPHILS 0.11(H) 0.01 - 0.08 x10'3/uL 05/14/2021 5:40 AM CDT [facility] ABS. IMMATURE GRANULOCYTES 0.02 0.00 - 0.49 x10'3/uL 05/14/2021 5:40 AM CDT [facility] 05/14/2021 5:05 AM CDT Candido Benites MD LABORATORY Final Result [facility] [address] [place] [address], [place] [phone] * CULTURE, BACTERIA, BLOOD (05/13/2021 4:18 PM CDT) SPEC DESCRIPTION BLOOD 05/13/2021 4:18 PM CDT [facility] SPECIAL REQUESTS NO SPECIAL REQUEST 05/13/2021 4:18 PM CDT [facility] CULTURE RESULT NO GROWTH 5 DAYS 05/18/2021 8:25 AM CDT [facility] BLOOD SPECIMEN OBTAINED FOR BLOOD CULTURE / Unknown 05/13/2021 4:18 PM CDT 05/13/2021 5:28 PM CDT Candido Benites MD MICROBIOLOGY - GENERAL ORDERABLE S Final Result [facility] [address] [place] [address], [place] [phone] * CULTURE, BACTERIA, BLOOD (05/13/2021 4:18 PM CDT) SPEC DESCRIPTION BLOOD 05/13/2021 4:18 PM CDT [facility] SPECIAL REQUESTS NO SPECIAL REQUEST 05/13/2021 4:18 PM CDT [facility] CULTURE RESULT NO GROWTH 5 DAYS 05/18/2021 8:25 AM CDT [facility] BLOOD SPECIMEN OBTAINED FOR BLOOD CULTURE / Unknown 05/13/2021 4:18 PM CDT 05/13/2021 5:28 PM CDT us Candido Benites MD MICROBIOLOGY - GENERAL ORDERABLE S Final Result [facility] [address] [place] [address], * EEG (05/13/2021 3:59 PM CDT) Narrative [facility] - 05/13/2021 3:59 PM CDT Garry Artis MD ? 05/13/2021 ??4:01 PM Routine EEG Report Patient Name: Lorri Ernandez [facility] Medical Record Number (MRN): [id number] Date of (): 2000 EEG Date: 05/12/2021 Ordering Provider: Candido Benites MD CC: Provider MD Dung Start Time: 1:16 PM ? Duration: 20:24 Introduction: Lorri Ernandez is a 20-year-old female with a history of depression, anxiety, POTs, and seizures who presents after an event concerning for seizure. EEG was performed to evaluate for seizures. This is a 21 channel EEG recording acquired on a LeadiD acquisition system. Scalp electrodes were placed according to the international 10-20 System. The analog EEG was filtered from 1-70 Hz and digitally sampled at 100 Hz. The record was then reformatted for review in bipolar and referential montages. EEG Description: The awake background included a 11 Hz posterior rhythm which attenuated with eye opening and activity. During drowsiness, identified by ocular signs and alpha attenuation, there was intermittent, diffuse, asynchronous theta activity admixed with 2-4 Hz polymorphic frontotemporal delta activity. As the record progressed, stage II sleep was identified by vertex waves, sleep spindles and K-complexes. Hyperventilation was not performed. Photic strobe stimulation elicited no abnormalities. There were no focal, lateralized or epileptiform abnormalities. Single ECG channel showed regular cardiac rhythm. Interpretation: This is a normal awake and stage I and II sleep extended EEG. Of note, a normal EEG does not rule out seizure/epilepsy. Garry Artis MD Pricila Olga Chambers [facility] ORDERABLES Edited Result - Final [facility] [address] [place] [address], * (ABNORMAL) CULTURE URINE (05/13/2021 8:47 AM CDT) SPEC DESCRIPTION URINE CLEAN CATCH 05/13/2021 9:08 AM CDT [facility] SPECIAL REQUESTS NO SPECIAL REQUEST 05/13/2021 9:08 AM CDT [facility] CULTURE RESULT >100,000 COL/ML STAPH. SPECIES NOT STAPH. AUREUS (A) 05/15/2021 10:06 AM CDT [facility] URINE SPECIMEN OBTAINED BY CLEAN CATCH PROCEDURE / Unknown 05/13/2021 8:47 AM CDT 05/13/2021 9:08 AM CDT Narrative Organism Antibiotic Method Susceptibility Staph. species not staph. aureus NITROFURANTOIN THU (V ITEK) <=16: Sensitive Staph. species not staph. aureus LEVOFLOXACIN THU (VIT EK) <=0.12: Sensitive Staph. species not staph. aureus OXACILLIN THU (VIT EK) <=0.25: Sensitive Staph. species not staph. aureus PENICILLIN G THU (VIT EK) 0.25: Resistant Staph. species not staph. aureus TRIMETH-SULFAMETH. [place] C (VITEK) <=10: Sensitive Staph. species not staph. aureus TETRACYCLINE THU (VIT EK) <=1: Sensitive us Candido Benites MD MICROBIOLOGY - GENERAL ORDERABLE S Final Result [facility] [address] [place] [address], [place] [phone] * (ABNORMAL) URINALYSIS (05/13/2021 8:47 AM CDT) SPECIMEN TYPE URINE CLEAN CATCH 05/13/2021 8:48 AM CDT [facility] COLOR (U) YELLOW 05/13/2021 9:07 AM CDT [facility] TRANSPARENCY TURBID 05/13/2021 9:07 AM CDT [facility] SPECIFIC GRAVITY (U) 1.020 1.001 - 1.030 05/13/2021 9:07 AM CDT [facility] U PH 6.5 5.0 - 9.0 05/13/2021 9:07 AM CDT [facility] LEUKOCYTES (U) 500(A) NEGATIVE 05/13/2021 9:07 AM CDT [facility] NITRITES 2+(A) NEGATIVE 05/13/2021 9:07 AM CDT [facility] PROTEIN (U) 20 <30 MG/DL 05/13/2021 9:07 AM CDT [facility] URINE GLUCOSE NORMAL NORMAL MG/DL 05/13/2021 9:07 AM CDT [facility] KETONES MG/DL (U) NEGATIVE NEGATIVE MG/DL 05/13/2021 9:07 AM CDT [facility] UROBILINOGEN NORMAL NORMAL MG/DL 05/13/2021 9:07 AM CDT [facility] BILIRUBIN (U) NEGATIVE NEGATIVE MG/DL 05/13/2021 9:07 AM CDT [facility] BLOOD (U) TRACE(A) NEGATIVE 05/13/2021 9:07 AM CDT [facility] CULTURE & SENSITIVITY INDICATED? SPECIMEN SETUP FOR CULTURE 05/13/2021 9:07 AM CDT [facility] MUCUS MANY /LPF 05/13/2021 9:07 AM CDT [facility] WBC/HPF >100(H) <6 /HPF 05/13/2021 9:07 AM CDT [facility] WBC CLUMPS PRESENT 05/13/2021 9:07 AM CDT [facility] RBC/HPF 27(H) <6 /HPF 05/13/2021 9:07 AM CDT [facility] SQUAMOUS EPITHELIALS RARE /HPF 05/13/2021 9:07 AM CDT [facility] URINE SPECIMEN OBTAINED BY CLEAN CATCH PROCEDURE / Unknown 05/13/2021 8:47 AM CDT us Krystle Sanchez PA-C URINE ORDERABLES Final Resu lt [facility] [address] [place] [address], [place] [phone] * MRV HEAD WWO (05/13/2021 7:54 AM CDT) Anatomical Region Laterality Modality Head Magnetic Resonan ce 05/13/2021 8:23 AM CDT Impressions 05/13/2021 8:27 AM CDT IMPRESSION: 1. No evidence of thrombosis of the major dural venous sinuses. Referred By: PRICILA CHAMBERS Interpreted By: Pete Gallegos MD, 05/13/2021 8:23 AM Narrative 05/13/2021 8:27 AM CDT INDICATION: Uncontrolled seizures. Concern for dural venous sinus thrombosis. EXAMINATION: MRV of the brain. TECHNIQUE: Multiplanar and multisequence MRI images of the head were obtained before and after uneventful intravenous administration of 10 mL Dotarem. Both the source images and 3-D/MIP images were reviewed. COMPARISON: Head CT 05/12/2021 FINDINGS: There is patent flow related and contrast enhancement within the superior sagittal sinus, internal cerebral veins, basal veins of Aura, vein of Leland, straight sinus, torcular Herophili, transverse sinuses, and sigmoid sinuses. 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 Visualized portions of the proximal major segments of the [place] of [place] are grossly patent. Ventricles and extra-axial/subarachnoid spaces unremarkable. No extra-axial collections. No intracranial mass effect or midline shift. Proximal portions of the major intracranial vascular flow voids are grossly patent. Mastoid air cells clear. Mild mucosal thickening in the paranasal sinuses. Visualized orbits unremarkable. Procedure Note Pete Gallegos MD - 05/13/2021 INDICATION: Uncontrolled seizures. Concern for dural venous sinusthrombosis. EXAMINATION: MRV of the brain. TECHNIQUE: Multiplanar and multisequence MRI images of the head were obtained beforeand after uneventful intravenous administration of 10 mL Dotarem. Both thesource images and 3-D/MIP images were reviewed. COMPARISON: Head CT 05/12/2021 FINDINGS: There is patent flow related and contrast enhancement within the superiorsagittal sinus, internal cerebral veins, basal veins of Aura, vein ofGalen, straight sinus, torcular Herophili, transverse sinuses, and sigmoidsinuses. The left transverse and sigmoid sinuses are developmentallyhypoplastic. Visualized portions of the proximal major segments of thecircle of [place] are grossly patent. Ventricles andextra-axial/subarachnoid spaces unremarkable. No extra-axial collections.No intracranial mass effect or midline shift. Proximal portions of themajor intracranial vascular flow voids are grossly patent. Mastoid aircells clear. Mild mucosal thickening in the paranasal sinuses. Visualizedorbits unremarkable. IMPRESSION: 1. No evidence of thrombosis of the major dural venous sinuses. Referred By: PRICILA CHAMBERS Interpreted By: Pete Gallegos MD, 05/13/2021 8:23 AM Pricila Chambers CLOSED CIRCUIT SCREEN WATCHER MRI Final Resul t * TSH W/REFLEX (05/13/2021 5:24 AM CDT) TSH 0.544 0.358 - 3.74 uIU/ML 05/13/2021 11:30 PM CDT [facility] Comment: HIGH DOSES OF BIOTIN MAY INTERFERE WITH THIS TEST RESULT. CORRELATION TO CLINICAL HISTORY AND PRESENTATION RECOMMENDED. FREE T4 NOT INDICATED 05/13/2021 5:24 AM CDT Candido Benites MD LABORATORY Final Result [facility] [address] [place] [address], [place] [phone] * (ABNORMAL) COMPREHENSIVE METABOLIC PANEL (05/13/2021 5:24 AM CDT) GLUCOSE 76 70 - 99 MG/DL 05/13/2021 6:03 AM CDT [facility] BUN 11 7 - 18 MG/DL 05/13/2021 6:03 AM CDT [facility] CREATININE S/P/B 0.63 0.55 - 1.02 MG/DL 05/13/2021 6:03 AM CDT [facility] SODIUM S/P/B 144 136 - 145 MMOL/L 05/13/2021 6:03 AM CDT [facility] POTASSIUM S/P/B 3.6 3.5 - 5.1 MMOL/L 05/13/2021 6:03 AM CDT [facility] CHLORIDE S/P/B 110(H) 100 - 108 MMOL/L 05/13/2021 6:03 AM CDT [facility] CO2 26.2 21 - 32 MMOL/L 05/13/2021 6:03 AM [facility] CALCIUM S/P/B 9.4 8.5 - 10.1 MG/DL 05/13/2021 6:03 AM [facility] BILIRUBIN TOTAL S/P/B 0.2 0.2 - 1.2 MG/DL 05/13/2021 6:03 AM [facility] Comment: THIS ASSAY IS NOT RECOMMENDED FOR PATIENTS UNDERGOING TREATMENT WITH ELTROMBOPAG DUE TO THE POTENTIAL FOR FALSELY ELEVATED RESULTS. TOTAL PROTEIN S/P/B 6.6 6.4 - 8.2 G/DL 05/13/2021 6:03 AM [facility] ALBUMIN S/P/B 2.8(L) 3.4 - 5.0 G/DL 05/13/2021 6:03 AM [facility] AST 13(L) 15 - 37 U/L 05/13/2021 6:03 AM [facility] ALT 20 14 - 55 U/L 05/13/2021 6:03 AM [facility] ALKALINE PHOSPHATASE S/P/B 89 50 - 136 U/L 05/13/2021 6:03 AM [facility] ANION GAP 7.8 5 - 15 MMOL/L 05/13/2021 6:03 AM [facility] BUN CREATININE RATIO 17.4 6 - 26 05/13/2021 6:03 AM [facility] A/G RATIO 0.7(L) 1.0 - 2.0 RATIO 05/13/2021 6:03 AM [facility] EGFR NON-AFR. AMER. >90 >90 ML/MIN/1.7 3 M2 05/13/2021 6:03 AM [facility] EGFR AFR. AMER. >90 >90 ML/MIN/1.7 3 M2 05/13/2021 6:03 AM CDT [facility] Comment: NOTE: eGFR is not calculated for patients <18 years of age. This is an estimated GFR (CKD EPI) and should not be used for calculating drug doses. 05/13/2021 5:24 AM CDT us Pricila Chambers CLOSED [employer] SCREEN WATCHER LABORATORY Final Resul t [facility] [address] [place] [address], [place] [phone] * (ABNORMAL) CBC W/DIFF AUTOMATED (05/13/2021 5:24 AM CDT) WBC 9.1 4.5 - 13.0 x10'3/uL 05/13/2021 5:38 AM CDT [facility] RBC 3.36(L) 4.20 - 5.40 x10'6/uL 05/13/2021 5:38 AM CDT [facility] HGB 8.3(L) 12.0 - 16.0 G/DL 05/13/2021 5:38 AM CDT [facility] HCT 27.3(L) 38.0 - 48.0 % 05/13/2021 5:38 AM CDT [facility] MCV 81.3 81.0 - 99.0 FL 05/13/2021 5:38 AM CDT [facility] MCH 24.7(L) 27.0 - 31.0 PG 05/13/2021 5:38 AM CDT [facility] MCHC 30.4(L) 32.0 - 36.0 G/DL 05/13/2021 5:38 AM CDT [facility] RDW 15.5(H) 11.5 - 14.5 % 05/13/2021 5:38 AM CDT [facility] PLT 365 130 - 400 x10'3/uL 05/13/2021 5:38 AM CDT [facility] MPV 8.4(L) 9.3 - 12.2 FL 05/13/2021 5:38 AM CDT [facility] DIFFERENTIAL TYPE AUTOMATED DIFFERENTIAL 05/13/2021 5:38 AM CDT [facility] NEUTROPHILS % 56.4 % 05/13/2021 5:38 AM CDT [facility] LYMPHOCYTES % 31.5 % 05/13/2021 5:38 AM CDT [facility] MONOCYTES % 6.8 % 05/13/2021 5:38 AM CDT [facility] EOSINOPHILS 3.4 % 05/13/2021 5:38 AM CDT [facility] BASOPHILS 1.2 % 05/13/2021 5:38 AM CDT [facility] IMMATURE GRANS % 0.7 % 05/13/20 5:38 AM CDT [facility] ABS. NEUTROPHILS TOTAL 5.13 1.80 - 8.00 x10'3/uL 05/13/2021 5:38 AM CDT [facility] ABS. LYMPHOCYTES 2.86 1.20 - 5.20 x10'3/uL 05/13/2021 5:38 AM CDT [facility] ABS. MONOCYTES 0.62 0.24 - 0.86 x10'3/uL 05/13/2021 5:38 AM CDT [facility] ABS. EOSINOPHILS 0.31 0.04 - 0.36 x10'3/uL 05/13/2021 5:38 AM CDT [facility] ABS. BASOPHILS 0.11(H) 0.01 - 0.08 x10'3/uL 05/13/2021 5:38 AM CDT [facility] ABS. IMMATURE GRANULOCYTES 0.06 0.00 - 0.49 x10'3/uL 05/13/2021 5:38 AM CDT [facility] 05/13/2021 5:24 AM CDT Pricila Espinoza Reyes NOE LABORATORY Final Resul t Performing Organization Address City/[facility] Co de Phone Number [facility] [address] [place] [address], [place] [phone] * (ABNORMAL) FERRITIN (05/13/2021 5:24 AM CDT) FERRITIN 7.1(L) 8.0 - 388.0 NG/ML 05/13/2021 6:27 AM CDT [facility] 05/13/2021 5:24 AM CDT Pricila Chambers APRN LABORATORY Final Resul t Performing Organization Address [facility] Co de Phone Number [facility] [address] [place] [address], [place] [phone] * (ABNORMAL) IRON SAT PANEL (IRON,IBC,%SAT) (05/13/2021 5:24 AM CDT) IRON 23(L) 50.0 - 170.0 MCG/DL 05/13/2021 6:03 AM CDT [facility] IRON BINDING CAPACITY 468(H) 250 - 450 MCG/DL 05/13/2021 6:03 AM CDT [facility] IRON SATURATION 5(L) 20 - 55 % 6:03 AM CDT [facility] 05/13/2021 5:24 AM CDT us Pricila Chambers [facility] Final Resul t [facility] [address] [place] [address], [place] [phone] * FOLIC ACID SERUM (05/13/2021 5:24 AM CDT) FOLATE 9.4 3.1 - 17.5 NG/ML 05/13/2021 6:27 AM CDT [facility] 05/13/2021 5:24 AM CDT us Pricila Espinoza Reyes NOE LABORATORY Final Resul t Performing Organization Address City/[facility]/ZIP Co de Phone Number [facility] [address] [place] [address], [place] [phone] * VITAMIN B-12 (05/13/2021 5:24 AM CDT) VITAMIN B12 S/P/B 405 254 - 1,320 PG/ML 05/13/2021 6:27 AM CDT [facility] 05/13/2021 5:24 AM CDT us Pricila Chambers [facility] Final Resul t [facility] [address] [place] [address], [place] [phone] * (ABNORMAL) POCT glucose (05/12/2021 10:31 PM CDT) GLUCOSE POC 101(H) 70 - 99 mg/dL 05/13/2021 3:59 AM CDT [facility] 05/12/2021 10:3 1 PM CDT David Quevedo MD POCT ORDERABLES - DEVICE Final Result [facility] [address] [place] [address], [place] [phone] * CT HEAD WO CON (05/12/2021 10:18 PM CDT) Anatomical Region Laterality Modality Head Computed Tomogra phy 05/12/2021 11:0 5 PM CDT Impressions 05/12/2021 11:06 PM CDT Impression: ?? Noncontrast CT head is within normal limits. Referred By: ROGERS CABRERA Interpreted By: Aiden Samuel MD, 05/12/2021 11:05 PM Narrative 05/12/2021 11:06 PM CDT EXAMINATION: ??CT of the head without contrast EXAM DATE/TIME: 05/12/2021 10:18 PM REASON FOR EXAM: ??status epilepticus See Comments to the Radiologist ? COMPARISON: 07/21/2020 Findings: ??Noncontrast CT of the head. ?? DOSE OPTIMIZATION: ??This facility uses dose optimization techniques as appropriate to perform exams, including at least one of the following techniques: Automated exposure control, Adjustment of the mA and/or KV according to patient size, Use of iterative reconstructive technique. No evidence for intracranial hemorrhage, acute stroke, mass or mass-effect. The ventricular system is normal appearance with no evidence for dilatation or midline shift. No intra or extra-axial fluid collections or masses are seen. The paranasal sinuses are clear. The bilateral mastoid air cells are relatively well-aerated. ??The calvarial structures are negative for fracture. Procedure Note Aiden Samuel MD - 05/12/2021 EXAMINATION: CT of the head without contrast EXAM DATE/TIME: 05/12/2021 10:18 PM REASON FOR EXAM: status epilepticus See Comments to the Radiologist COMPARISON: 07/21/2020 Findings: Noncontrast CT of the head. DOSE OPTIMIZATION: This facility uses dose optimization techniques asappropriate to perform exams, including at least one of the followingtechniques: Automated exposure control, Adjustment of the mA and/or KVaccording to patient size, Use of iterative reconstructive technique. No evidence for intracranial hemorrhage, acute stroke, mass ormass-effect. The ventricular system is normal appearance with no evidencefor dilatation or midline shift. No intra or extra-axial fluid collectionsor masses are seen. The paranasal sinuses are clear. The bilateral mastoidair cells are relatively well-aerated. The calvarial structures arenegative for fracture. Impression: Noncontrast CT head is within normal limits. Referred By: ROGERS CABRERA Interpreted By: Aiden Samuel MD, 05/12/2021 11:05 PM Rogers Cabrera MD,PHD CT Final Resu lt * Bedside Blood Glucose (05/12/2021 9:43 PM CDT) GLUCOSE WHOLE BLOOD 87 70 - 100 mg/dL Krystle Sanchez PA-C NURSING TREATMENT ORDERABLE S - ONCE OR INTERVALS Final Result * POCT glucose (05/12/2021 9:42 PM CDT) GLUCOSE POC 87 70 - 99 mg/dL 05/12/2021 9:46 PM CDT [facility] 05/12/2021 9:42 PM CDT Rogers Cabrera MD,PHD POCT ORDERABLES - DEVICE F inal Result [facility] [address] [place] [address], [place] [phone] * CK (CPK) (05/12/2021 9:32 PM CDT) CPK 60 21 - 215 U/L 05/13/2021 1:01 AM CDT [facility] 05/12/2021 9:32 PM CDT Pricila Chambers APRN LABORATORY Final Resul t Performing Organization Address City/[facility]/ZIP Co de Phone Number [facility] [address] [place] [address], [place] [phone] * PHOSPHORUS, INORGANIC PHOSPHATE (05/12/2021 9:32 PM CDT) PHOSPHORUS 3.3 2.5 - 4.9 MG/DL 05/12/2021 11:35 PM CDT [facility] 05/12/2021 9:32 PM CDT Rogers Cabrera MD,PHD LABORATORY Final Resu lt Performing Organization Address City/[facility] Co de Phone Number [facility] [address] [place] [address], [place] [phone] * (ABNORMAL) CARBAMAZEPINE TOTAL (05/12/2021 9:32 PM CDT) CARBAMAZEPINE S/P/B <0.5(L) 4.0 - 12.0 MCG/ML 05/12/2021 11:35 PM CDT [facility] Comment: Therapeutic Range: 4.0-12.0 MCG/ML TOXIC LEVEL: ??>12 MCG/ML DOSE UNKNOWN LAST DOSE 05/12/2021 11:38 PM CDT [facility] 05/12/2021 9:32 PM CDT Rogers Cabrera MD,PHD LABORATORY Final Resu lt [facility] [address] [place] [address], [place] [phone] * PROLACTIN (05/12/2021 9:32 PM CDT) PROLACTIN 69.7 NG/ML 05/13/2021 1:02 AM CDT [facility] Comment:FEMALE REFERENCE RAN GE (NON-): 4.8-23.3 05/12/2021 9:32 PM CDT Rogers Cabrera MD,PHD LABORATORY Final Resu lt Performing Organization Address [facility]/ZIP Co de Phone Number [facility] [address] [place] [address], [place] [phone] * TYPE & SCREEN (05/12/2021 9:32 PM CDT) UNITS ORDERED 2 05/13/2021 6:33 AM CDT [facility] ABO/RH A NEGATIVE 05/13/2021 2:38 AM CDT [facility] ANTIBODY SCREEN POSITIVE 2:38 AM CDT [facility] SAMPLE EXPIRATION 05/15/2021,235 9 05/13/2021 2:38 AM CDT [facility] ANTIBODY ID ANTI-D 05/13/2021 2:38 AM CDT [facility] BLOOD UNIT NUMBER [id number] 05/13/2021 2:38 AM CDT [facility] PRODUCT: PC LEUKOPOOR 05/13/2021 2:38 AM CDT [facility] UNIT DIVISION 00 05/13/2021 2:38 AM CDT [facility] BLOOD UNIT STATUS UNIT RELEASED 05/16/2021 6:24 AM CDT [facility] TRANSFUSION STATUS OK TO TRANSFUSE 05/13/2021 2:38 AM CDT [facility] CROSSMATCH COMPATIBLE 05/13/2021 2:38 AM CDT [facility] BLOOD UNIT NUMBER [id number] 05/13/2021 2:38 AM CDT [facility] PRODUCT: PC LEUKOPOOR 05/13/2021 2:38 AM CDT [facility] UNIT DIVISION 00 05/13/2021 2:38 AM CDT [facility] BLOOD UNIT STATUS UNIT RELEASED 05/16/2021 6:24 AM CDT [facility] TRANSFUSION STATUS OK TO TRANSFUSE 05/13/2021 2:43 AM CDT [facility] CROSSMATCH COMPATIBLE 05/13/2021 2:38 AM CDT [facility] 05/12/2021 9:32 PM CDT Rogers Cabrera MD,PHD BLOOD BANK TEST ORDERABLES Final Result [facility] [address] [place] [address], [place] [phone] * LACTIC ACID (05/12/2021 9:32 PM CDT) LACTIC ACID VENOUS 1.6 0.4 - 2.0 MMOL/L 05/12/2021 10:14 PM CDT [facility] 05/12/2021 9:3 2 PM CDT us Krystle Sanchez PA-C LABORATORY Final Resul t [facility] [address] [place] [address], [place] [phone] * MAGNESIUM (05/12/2021 9:32 PM CDT) MAGNESIUM 1.9 1.8 - 2.4 MG/DL 05/12/2021 10:16 PM CDT [facility] 05/12/2021 9:32 PM CDT Krystle Sanchez PA-C LABORATORY Final Resul t Performing Organization Address City/[facility]/ZIP Co de Phone Number [facility] [address] [place] [id number], [place] [phone] * (ABNORMAL) COMPREHENSIVE METABOLIC PANEL (05/12/2021 9:32 PM CDT) GLUCOSE 89 70 - 99 MG/DL 05/12/2021 10:16 PM CDT [facility] BUN 8 7 - 18 MG/DL 05/12/2021 10:16 PM CDT [facility] CREATININE S/P/B 0.66 0.55 - 1.02 MG/DL 05/12/2021 10:16 PM CDT [facility] SODIUM S/P/B 143 136 - 145 MMOL/L 05/12/2021 10:16 PM CDT [facility] POTASSIUM S/P/B 3.5 3.5 - 5.1 MMOL/L 05/12/2021 10:16 PM CDT [facility] CHLORIDE S/P/B 110(H) 100 - 108 MMOL/L 05/12/2021 10:16 PM CDT [facility] [facility] CO2 26.8 21 - 32 MMOL/L 05/12/2021 10:16 PM T [facility] CALCIUM S/P/B 9.5 8.5 - 10.1 MG/DL 05/12/2021 10:16 PM [facility] BILIRUBIN TOTAL S/P/B 0.2 0.2 - 1.2 MG/DL 05/12/2021 10:16 PM T [facility] Comment: THIS ASSAY IS NOT RECOMMENDED FOR PATIENTS UNDERGOING TREATMENT WITH ELTROMBOPAG DUE TO THE POTENTIAL FOR FALSELY ELEVATED RESULTS. TOTAL PROTEIN S/P/B 7.0 6.4 - 8.2 G/DL 05/12/2021 10:16 PM T [facility] ALBUMIN S/P/B 3.0(L) 3.4 - 5.0 G/DL 05/12/2021 10:16 PM T [facility] AST 13(L) 15 - 37 U/L 05/12/2021 10:16 PM T [facility] ALT 22 14 - 55 U/L 05/12/2021 10:16 PM T [facility] ALKALINE PHOSPHATASE S/P/B 97 50 - 136 U/L 05/12/2021 10:16 PM [facility] ANION GAP 6.2 5 - 15 MMOL/L 05/12/2021 10:16 PM T [facility] BUN CREATININE RATIO 12.0 6 - 26 05/12/2021 10:16 PM T [facility] A/G RATIO 0.8(L) 1.0 - 2.0 RATIO 05/12/2021 10:16 PM [facility] EGFR NON-AFR. AMER. >90 >90 ML/MIN/1.7 3 M2 05/12/2021 10:16 PM T [facility] EGFR AFR. AMER. >90 >90 ML/MIN/1.7 3 M2 05/12/2021 10:16 PM CDT [facility] Comment: NOTE: eGFR is not calculated for patients <18 years of age. This is an estimated GFR (CKD EPI) and should not be used for calculating drug doses. 05/12/2021 9:32 PM CDT us Krystle Sanchez PA-C LABORATORY Final Resul t [facility] [address] [place] [address], * (ABNORMAL) CBC W/DIFF AUTOMATED (05/12/2021 9:32 PM CDT) WBC 10.7 4.5 - 13.0 x10'3/uL 05/12/2021 10:21 PM CDT [facility] RBC 3.54(L) 4.20 - 5.40 x10'6/uL 05/12/2021 10:21 PM CDT [facility] HGB 8.9(L) 12.0 - 16.0 G/DL 05/12/2021 10:21 PM CDT [facility] HCT 28.3(L) 38.0 - 48.0 % 05/12/2021 10:21 PM CDT [facility] MCV 79.9(L) 81.0 - 99.0 FL 05/12/2021 10:21 PM CDT [facility] MCH 25.1(L) 27.0 - 31.0 PG 05/12/2021 10:21 PM CDT [facility] MCHC 31.4(L) 32.0 - 36.0 G/DL 05/12/2021 10:21 PM CDT [facility] RDW 15.3(H) 11.5 - 14.5 % 05/12/2021 10:21 PM CDT [facility] PLT 451(H) 130 - 400 x10'3/uL 05/12/2021 10:21 PM CDT [facility] MPV 8.8(L) 9.3 - 12.2 FL 05/12/2021 10:21 PM CDT [facility] DIFFERENTIAL TYPE AUTOMATED DIFFERENTIAL 05/12/2021 10:21 PM CDT [facility] NEUTROPHILS % 59.0 % 05/12/2021 10:21 PM CDT [facility] LYMPHOCYTES % 29.5 % 05/12/2021 10:21 PM CDT [facility] MONOCYTES % 6.6 % 05/12/2021 10:21 PM CDT [facility] EOSINOPHILS 3.3 % 05/12/2021 10:21 PM CDT [facility] BASOPHILS 0.9 % 05/12/2021 10:21 PM CDT [facility] IMMATURE GRANS % 0.7 % 05/12/20 10:21 PM CDT [facility] ABS. NEUTROPHILS TOTAL 6.31 1.80 - 8.00 x10'3/uL 05/12/2021 10:21 PM CDT [facility] ABS. LYMPHOCYTES 3.15 1.20 - 5.20 x10'3/uL 05/12/2021 10:21 PM CDT [facility] ABS. MONOCYTES 0.71 0.24 - 0.86 x10'3/uL 05/12/2021 10:21 PM CDT [facility] ABS. EOSINOPHILS 0.35 0.04 - 0.36 x10'3/uL 05/12/2021 10:21 PM CDT [facility] ABS. BASOPHILS 0.10(H) 0.01 - 0.08 x10'3/uL 05/12/2021 10:21 PM CDT [facility] ABS. 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 cefTRIAXone (ROCEPHIN) 1 g in sodium chloride 0.9 % 50 mL IVPB 1 g, Intravenous, at 100 mL/hr, Every 24 hours, First dose on Sun05/13/21 at 2000, Until Discontinued New Bag 05/13/2021 8:44 PM CDT 1 g 100 mL/hr gadoterate meglumine (DOTAREM) 5 MMOL/10ML injection 10 mL 10 mL, Intravenous, IMG once as needed, Contrast, 1 dose, Starting on Sun05/13/21 at 0754, Until Sun05/13/21 at 0755 Given 05/13/2021 7:55 AM CDT 10 mLs Right Arm levETIRAcetam (KEPPRA) 2,000 mg in sodium chloride 0.9 % 100 mL IVPB 2,000 mg, Intravenous, at 400 mL/hr, Once, 1 dose, On Bhumika 05/12/21 at 2200 New Bag 05/12/2021 10:26 PM CDT 2,000 mg 400 mL/hr ondansetron (ZOFRAN) injection 4 mg 4 mg, Intravenous, Every 8 hours PRN, Nausea, Starting on Sun05/13/21 at 0955, Until 05/14/21 at 1516, IV push over 2-5 minutes. OXcarbazepine (TRILEPTAL) tablet 300 mg 300 mg, Oral, 2 times daily, First dose on Sun05/13/21 at 0230, Until Discontinued Given 05/14/2021 8:14 AM CDT 300 mg Given 05/13/2021 8:44 PM CDT 300 mg Given 05/13/2021 8:43 AM CDT 300 mg potassium chloride CR (K-TAB) tablet 40 mEq 40 mEq, Oral, Once, 1 dose, On Sun05/13/21 at 0400, Do not break, chew, or crush. Given 05/13/2021 5:23 AM CDT 40 mE q vitamin (low iron) 27-0.8 MG tablet 1 tablet 1 tablet, Oral, Daily, First dose on Sun05/13/21 at 0900, Until Discontinued Given 05/14/2021 8:14 AM CDT 1 tablet Given 05/13/2021 12:34 PM CDT 1 tablet documented in this encounter Active and Recently Administered Medications Times are shown in CDT. Scheduled Medication Order 05/12/2021 05/13/2021 05/14/2021 cefTRIAXone (ROCEPHIN) 1 g in sodium chloride 0.9 % 50 mL IVPB 1 g, Intravenous, at 100 mL/hr, Every 24 hours, First dose on Sun05/13/21 at 2000, Until Discontinued 2043 (New Bag - Provider: Yue Briggs RN)2129 (Infusion Stop Time - Provider: Yue Briggs RN) levETIRAcetam (KEPPRA) 2,000 mg in sodium chloride 0.9 % 100 mL IVPB (COMPLETED) 2,000 mg, Intravenous, at 400 mL/hr, Once, 1 dose, On Bhumika 05/12/21 at 2200 2226 (New Bag - Provider: Stephy Fischer, RN)2252 (Infusion Stop Time - Provider: Stephy Fischer RN) OXcarbazepine (TRILEPTAL) tablet 300 mg 300 mg, Oral, 2 times daily, First dose on Sun05/13/21 at 0230, Until Discontinued 0232 (Given - Provider: Stephy Fischer, RN)0843 (Given - Provider: Ric Tovar, OCTAVIO)2044 (Given - Provider: Yue Briggs RN) 0814 (Given - Provider: Adriane Anthony, RN) potassium chloride CR (K-TAB) tablet 40 mEq (COMPLETED) 40 mEq, Oral, Once, 1 dose, On Sun05/13/21 at 0400, Do not break, chew, or crush. 0523 (Given - Provider: Svetlana Schultz, OCTAVIO) vitamin (low iron) 27-0.8 MG tablet 1 tablet 1 tablet, Oral, Daily, First dose on Sun05/13/21 at 0900, Until Discontinued 1234 (Given - Provider: Tracy Brown RN) 0814 (Given - Provider: Adriane Anthony, OCTAVIO) PRN Medication Order 05/12/2021 05/13/2021 05/14/2021 acetaminophen (TYLENOL) tablet 650 mg 650 mg, Oral, Every 4 hours PRN, Mild pain (Scale 1 - 3), Starting on Sun05/13/21 at 0955, Until 05/14/21 at 1516, Maximum dose of acetaminophen is 4000 mg from all sources in 24 hours. gadoterate meglumine (DOTAREM) 5 MMOL/10ML injection 10 mL (COMPLETED) 10 mL, Intravenous, IMG once as needed, Contrast, 1 dose, Starting on Sun05/13/21 at 0754, Until Sun05/13/21 at 0755 0755 (Given - Provider: Lorene Ramey, RTR) ondansetron (ZOFRAN) injection 4 mg 4 mg, Intravenous, Every 8 hours PRN, Nausea, Starting on Sun05/13/21 at 0955, Until 05/14/21 at 1516, IV push over 2-5 minutes. documented in this encounter Care Teams Model Maker Apprentice Relationship Specialty Start Date End Date None, Provider, PCP - General 11/07/20 documented as of this encounter
--- OUTSIDE RECORDS SUMMARY | 2024-08-05 00:14 | XMS_ITS | Clinical Summary ---
Author Organization [facility] Address [address] [place] [address]. [place], [place] [id number] [place] [id number] Care Team Providers Care Corporate Officer Name Role Phone None, Provider MD Primary Care Provider Unavaila ble Allergies Active Allergy Reactions Criticality Noted Date Comments Penicillin V Anaphylaxis High 07/21/2020 Ceftriaxone Other (see comment) 11/07/2020 numbness Wasp Venom Anaphylaxis High 07/21/2020 Medications No known medications Active Problems Problem Noted Date Diagnosed Date Seizures ([facility]) 05/13/2021 Immunizations Name Administration Dates Next Due Fluzone 6 Months+ Quad (0.5 mL Prefilled Syringe ) 05/14/2021 Family History Medical History Relation Comments Seizures Mother Relation Status Comments Mother Social History Tobacco Use Types Packs/Day Years [...] on file Sexual Orientation Not on file Last Filed Vital Signs Vital Sign Reading [...] Mass Index 20.67 06/23/2021 5:30 PM CDT Plan of Treatment Health Maintenance Due Date Last Done Comments Cervical Cancer Screening Pa p Smear (Age 21 to 29) Every 3 Years 2000 Cervical Cancer Screening 2000 Annual Physical 2003 HPV Vaccines (1 - 3-dose series) 2015 Hepatitis C 2018 Hepatitis B Vaccines (1 of 3 - 19+ 3-dose series) 2019 COVID-19 Vaccine ( - 2023-2 5 season) 2024 Influenza Adult (#1) 2024 05/14/2021 DTaP, Tdap and Td Vaccines ( 2 - Td or Tdap) 02/16/2031 02/16/2021 Meningococcal Vaccine Aged Out No colleen rayna eligible based on patient's age to complete this topic Pneumococcal Vaccine: Pediat rics (0 to 5 Years) and At-Risk Patients (6 to 64 Years) Aged Out No longer eligi ble based on patient's age to complete this topic RSV Immunizations Under 20 Months Aged Out No longer eligible based on patient's age to complete this topic Insurance [place] [address] [address] C/O PROVIDER SERVICES MARY ANN GARCIA [id number] [employer] Advance Directives * Full Code (Latest Code Status on File) Date Activated Date Inactivated Comments 05/13/2021 2:49 AM 05/14/2021 3:21 PM Care Teams Corporate Officer Relationship Specialty Start Date End Date None, Provider, PCP - General 11/07/20
--- OUTSIDE RECORDS SUMMARY | 2024-08-05 00:14 | XMS_ITS | Encounter Summary ---
Author Organization [facility] Address [address] [place] [address]. [place], [place] [id number] [place] [address] Care Team Providers Care Employment Manager Name Role Phone None, Provider Primary Care Provider Unavaila ble Encounter Details Date Type Department Care Team (Late st Contact Info) Description 08/19/2022 8:05 AM [facility]DER [facility] - 08/19/2022 11:59 PM [facility] Hospital Encounter [facility] [place] [address] Zo Merchant MD [address] [facility] [address] [place] [address] Discharge Disposition: Home or Self Care (Routine [...] Coronavirus/COVID-19? No / Unsure 08/19/2022 8:09 AM [facility] M[facility]DER [facility] documented as of this encounter Functional Status [...] Procedure Name Priority Date/Time Associated Diagnosis Comments PROGESTERONE Routine 08/19/2022 8:14 AM C[facility] M[facility]DER [facility] Investigation and testing for procreation management documented in this encounter Results * PROGESTERONE (08/19/2022 8:14 AM CANDLE MOLDER HAND) PROGESTERONE 35.0 NG/ML 08/19/2022 1:55 PM CANDLE MOLDER HAND [facility] Comment: NON- FEMALES: DHEA SUPPLEMENTATION [...] BE IMPACTED BY DHEA-S. 08/19/2022 8:14 AM CANDLE MOLDER HAND us Zo Merchant MD LABORATORY Final Res ult [facility] [address] [place] [address], [place] [phone] documented in this encounter Visit Diagnoses Diagnosis Investigation and testing for procreation management Other investigation and testing for procreative management documented in this encounter Care Teams Employment Manager Relationship Specialty Start Date End Date None, Provider, PCP - General 11/07/20 documented as of this encounter
--- OUTSIDE RECORDS SUMMARY | 2024-08-05 00:14 | XMS_ITS | Encounter Summary ---
Author Organization [facility] Address [address] [place] [address]. [place], [place] [id number] [place] [address] Care Team Providers Care Casino Accountant Name Role Phone None, Provider MD Primary Care Provider Unavaila ble Encounter Details Date Type Department Care Team (Latest Contact Info) Description 12/13/2023 Travel Social History Tobacco Use Types Packs/Day [...] on filedocumented in this encounter Care Teams Casino Accountant Relationship Specialty Start Date End Date None, Provider, PCP - General 11/07/20 documented as of this encounter
--- OUTSIDE RECORDS SUMMARY | 2024-08-05 00:14 | XMS_ITS | Encounter Summary ---
Author Organization [facility] Address [address] [place] [address]. [place], [place] [id number] [place] [address] Care Team Providers Care Top Coater Name Role Phone None, Provider MD Primary Care Provider Unavaila ble Encounter Details Date Type Department Care Team (Latest Contact Info) Description 06/23/2021 Travel Social History Tobacco Use Types Packs/Day [...] PM CDT documented as of this encounter Functional Status [...] on filedocumented in this encounter Care Teams Top Coater Relationship Specialty Start Date End Date None, Provider, PCP - General 11/07/20 documented as of this encounter
--- OUTSIDE RECORDS SUMMARY | 2024-08-05 00:14 | XMS_ITS | Encounter Summary ---
Author Organization [facility] Address [address] [place] [address]. [place], [place] [id number] [place] [address] Care Team Providers Care Data Control Assistant Name Role Phone None, Provider MD Primary Care Provider Unavaila ble Encounter Details Date Type Department Care Team (Late st Contact Info) Description 05/16/2021 Hospital Follow-up Call [facility] Telemetry Unit B [address] [facility] [place] [address] Roselia Ledezma, RN Social History Tobacco Use Types Packs/Day Years [...] PM MELVINAT Adriane Anthony RN Active * Do you [...] on filedocumented in this encounter Care Teams Data Control Assistant Relationship Specialty Start Date End Date None, Provider, PCP - General 11/07/20 documented as of this encounter
--- OUTSIDE RECORDS SUMMARY | 2024-08-05 00:15 | XMS_ITS | Encounter Summary ---
Author Organization [facility] Address [address] [place] [address]. [place], [place] [address] [place] [id number] Care Team Providers Care Entry Level Marketing Assistant Name Role Phone Bel Benitez MD Primary Care Provider [phone] Reason for Referral * Imaging (Emergency) - Closed Specialty Diagnoses / Procedures Referred By Mavis carreon Referred To Contact RADIOLOGY Procedures US OB TRANSVAG Casandra Arita MD [address] [address] Phone: tel: fax: Referral ID Status Reason Start Date Expiration Date Visits Re quested Visits Authorized [id number] Closed 09/13/2020 10/14/2021 1 1 GE PICKING SUPERVISOR Reason for Visit * Reason Comments Abdominal Pain Encounter Details Date Type Department Care Team (Late st Contact Info) Description 09/13/2020 7:23 AM ORANGE PICKING SUPERVISOR - 09/13/2020 12:14 PM ORANGE PICKING SUPERVISOR Emergency [facility] [place] [address] Casandra Arita MD [address] [id number] Abdominal Pain Discharge Disposition: Home or Self Care (Routine [...] have Coronavirus / COVID-19? No / Unsure 09/13/2020 6:55 AM ORANGE PICKING SUPERVISOR documented as of this encounter Last Filed Vital Signs Vital Sign Reading Time Taken Comments Blood Pressure 97/53 09/13/2020 12:13 PM ORANGE PICKING SUPERVISOR Pulse 70 09/13/2020 12:13 PM ORANGE PICKING SUPERVISOR Temperature 36.6 ??C (97.8 ??F) 09/13/2020 7:01 AM CS T Respiratory Rate 18 09/13/2020 12:13 PM ORANGE PICKING SUPERVISOR Oxygen Saturation 98% 09/13/2020 12:13 PM ORANGE PICKING SUPERVISOR Inhaled Oxygen Concentration - - Weight 49.9 kg (110 lb) 09/13/2020 7:01 AM ORANGE PICKING SUPERVISOR Height 157.5 cm (5' 2 ) 09/13/2020 7:01 AM ORANGE PICKING SUPERVISOR Body Mass Index 20.12 09/13/2020 7:01 AM ORANGE PICKING SUPERVISOR documented in this encounter Discharge Instructions * Discharge Instructions* Casandra Arita MD - 09/13/2020 11:33 AM ORANGE PICKING SUPERVISOR Return to ER for new or worsening symptoms. Take tylenol as needed for pain. Follow up with Dr. Johnson this week. GE PICKING SUPERVISOR * Attachments The following attachments cannot be sent through Care Everywhere. * Subchorionic Bleeding (Togolese) documented in this encounter ED Notes * Kiet Haines RN - 09/13/2020 12:12 PM CST Provider discussed today's findings with the patient/family. The patient has been given informationregarding their treatment, follow up and concerning symptoms for which they should seek urgent or emergent attention. I have expressed the the importance of seeking attention should there be any new,or worsening symptoms or persistence of their condition. Patient verbalized understanding of the discharge instructions. Patient ambulatory to waiting room with d/c paperwork and work note in hands. No questions at the time of discharge. KIET HAINES RN GE PICKING SUPERVISOR * Kiet Haines RN - 09/13/2020 12:01 PM CST This RN spoke to OB charge and we will see pt in the ER. KIET HAINES RN GE PICKING SUPERVISOR * Kiet Haines RN - 09/13/2020 10:53 AM CST Pt to US. KIET HAINES RN GE PICKING SUPERVISOR * Casandra Arita MD - 09/13/2020 7:43 AM CST [place], [place] EMERGENCY DEPARTMENT ENCOUNTER Chief Complaint Chief Complaint Patient presents with ??? Abdominal Pain History of Present Illness Provider at Bedside Date/Time Event User Comments 09/13/20 0724 Provider at Bedside Assessing Patient CASANDRA ARITA History provided by: Patient superintendent institution used: No A [id number]-year-old female with a PMH of epilepsy, PTSD, anxiety, depression presents to the ED for evaluation of abdominal pain onset 0530 this AM. Patient describes her pain as a pulling/yankingsensation to her mid abdomen. She states the pain is continuous and getting progressively worse. Reports she is about 10 weeks . Patient is A1. She received her first check up on and is scheduled for her first US tomorrow. Denies any cramping, bleeding, or vaginal discharge. PCP: Dr. Benitez OBGYN: Dr. Johnson Medical History ALLERGIES: Allergies Allergen Reactions ??? Pcn [Penicillin V] Anaphylaxis ??? Wasp Venom Anaphylaxis MEDICATIONS: Prior to Admission medications Not on File PAST MEDICAL HISTORY: Past Medical History: Diagnosis Date ??? Anxiety ??? Depression ??? PTSD (post-traumatic stress disorder) ??? Seizures (CMS/HCC) PAST SURGICAL HISTORY: Past Surgical History: Procedure Laterality Date ??? EYE SURGERY FAMILY HISTORY: No family history on file. SOCIAL HISTORY: Social History Tobacco Use ??? Smoking status: Never Smoker ??? Smokeless tobacco: Never Used Substance Use Topics ??? Alcohol use: Never Frequency: Never ??? Drug use: Never Review of Systems Review of Systems Constitutional: Negative for chills and fever. HENT: Negative for sore throat. Eyes: Negative for pain. Respiratory: Negative for cough and shortness of breath. Cardiovascular: Negative for chest pain. Gastrointestinal: Positive for abdominal pain and nausea. Negative for diarrhea. Endocrine: Negative for polyuria. Genitourinary: Negative for dysuria. Skin: Negative for rash. Neurological: Negative for dizziness and headaches. Psychiatric/Behavioral: Negative for behavioral problems. See HPI for further details. All systems negative except as marked. Physical Exam Filed Vitals: 09/13/20 0701 09/13/20 0918 BP: 107/72 100/57 Pulse: 84 70 Resp: 18 18 Temp: 97.8 ??F (36.6 ??C) SpO2: 96% 100% Weight: 49.9 kg (110 lb) Height: 5' 2 (1.575 m) Physical Exam Vitals signs and nursing note reviewed. Constitutional: Appearance: She is well-developed. HENT: Head: Normocephalic and atraumatic. Eyes: Conjunctiva/sclera: Conjunctivae normal. Neck: Musculoskeletal: Neck supple. Cardiovascular: Rate and Rhythm: Normal rate and regular rhythm. Pulmonary: Effort: Pulmonary effort is normal. Breath sounds: Normal breath sounds. No stridor. Abdominal: Palpations: Abdomen is soft. Tenderness: There is abdominal tenderness in the suprapubic area. Comments: +Diffuse tenderness greatest in the suprapubic region. Musculoskeletal: General: No deformity. Skin: General: Skin is warm and dry. Neurological: Mental Status: She is alert and oriented to person, place, and time. Diagnostic Studies / Procedures ELECTROCARDIOGRAMS: No results found for this visit on 09/13/20. LABORATORY STUDIES: Results for orders placed or performed during the hospital encounter of 09/13/20 CBC W/DIFF AUTOMATED Result Value Ref Range WBC 11.6 4.5 - 13.0 x10'3/uL RBC 4.34 4.20 - 5.40 x10'6/uL HGB 12.2 12.0 - 16.0 G/DL HCT 37.5 (L) 38.0 - 48.0 % MCV 86.4 81.0 - 99.0 FL MCH 28.1 27.0 - 31.0 PG MCHC 32.5 32.0 - 36.0 G/DL RDW 13.2 11.5 - 14.5 % PLT 339 130 - 400 x10'3/uL MPV 9.3 9.3 - 12.2 FL DIFFERENTIAL TYPE AUTOMATED DIFFERENTIAL NEUTROPHILS 67.3 % LYMPHOCYTES 21.6 % MONOCYTES 8.3 % EOSINOPHILS 1.3 % BASOPHILS 0.9 % IMMATURE GRANS 0.6 % ABS. NEUTROPHILS TOTAL 7.83 1.80 - 8.00 x10'3/uL ABS. LYMPHOCYTES 2.51 1.20 - 5.20 x10'3/uL ABS. MONOCYTES 0.97 (H) 0.24 - 0.86 x10'3/uL ABS. EOSINOPHILS 0.15 0.04 - 0.36 x10'3/uL ABS. BASOPHILS 0.10 (H) 0.01 - 0.08 x10'3/uL ABS. IMMATURE GRANULOCYTES 0.07 0.00 - 0.49 x10'3/uL URINALYSIS Result Value Ref Range Specimen Type URINE CLEAN CATCH COLOR (U) YELLOW TRANSPARENCY EXTREMELY TURBID Specific [place] (U) 1.015 1.001 - 1.030 U PH 8.0 5.0 - 9.0 LEUKOCYTE ESTERASE 250 (A) NEGATIVE NITRITES NEGATIVE NEGATIVE PROTEIN (U) 10 <30 MG/DL URINE GLUCOSE NORMAL NORMAL MG/DL U KETONES NEGATIVE NEGATIVE MG/DL UROBILINOGEN NORMAL NORMAL MG/DL BILIRUBIN (U) NEGATIVE NEGATIVE MG/DL BLOOD NEGATIVE NEGATIVE CULTURE & SENSITIVITY INDICATED? SPECIMEN SETUP FOR CULTURE MUCUS RARE /LPF [place] Yeast MANY (A) NONE /HPF SPERM (U) SPERMATOZOA PRESENT SQUAMOUS EPITHELIALS RARE /HPF HCG QUANTITATIVE SERUM Result Value Ref Range HCG, QUANTITATIVE 72,495 MIU/ML COMPREHENSIVE METABOLIC PANEL Result Value Ref Range GLUCOSE 84 70 - 99 MG/DL BUN 4 (L) 7 - 18 MG/DL CREATININE S/P/B 0.52 (L) 0.55 - 1.02 MG/DL SODIUM 136 136 - 145 MMOL/L POTASSIUM 3.7 3.5 - 5.1 MMOL/L CHLORIDE S/P/B 107 100 - 108 MMOL/L CO2 22.1 21 - 32 MMOL/L CALCIUM 9.2 8.5 - 10.1 MG/DL BILIRUBIN TOTAL S/P/B 0.3 0.2 - 1.2 MG/DL TOTAL PROTEIN S/P/B 7.1 6.4 - 8.2 G/DL ALBUMIN S/P/B 3.7 3.4 - 5.0 G/DL AST 12 (L) 15 - 37 U/L ALT 18 14 - 55 U/L ALKALINE PHOSPHATASE S/P/B 59 50 - 136 U/L ANION GAP 6.9 5 - 15 MMOL/L BUN CREATININE RATIO 7.7 6 - 26 A/G RATIO 1.1 1.0 - 2.0 RATIO eGFR Non-Afr. Amer. >90 >90 ML/MIN/1.73 M2 eGFR Afr. Amer. >90 >90 ML/MIN/1.73 M2 LIPASE Result Value Ref Range LIPASE 73 73 - 393 UNITS/L BLOOD TYPING, ABO AND RH Result Value Ref Range ABO/RH A NEGATIVE IMAGING STUDIES US OB TRANSVAG Final Result by User, [id number] (09/13 519) Examination: OB ultrasound. Exam time: 0955 hours. Clinical history: Umbilical pain. Early . Comparison: None. Technique: Endovaginal grayscale, M-mode and color Doppler images including spectral analysis. Findings: The uterus measures 9.1 cm in length. No myometrial abnormality is identified. Single intrauterine gestation is present. There is good surrounding decidual reaction. Small mildly complicated perigestational fluid collection suggests subchorionic hemorrhage. An embryo and yolk sac are visible. Kelso-rump length corresponds to a mean gestational age of approximately 6.5 weeks. GEGE by ultrasound is 05/05/2021. Embryonic heart motion is documented at a rate of 122 bpm. Early gestation precludes anatomic or placental assessment. The amniotic fluid volume is within normal limits. Both ovaries are identified. The right ovary measures 2.8 cm in greatest dimension. The left ovary measures 3.5 cm in greatest dimension. Flow to both ovaries is documented on color Doppler with normal appearing spectra. A few follicles are present. No adnexal mass or fluid collection is identified. IMPRESSION: 1. Living single intrauterine gestation of approximately 6.5 weeks gestational age. 2. Probable small subchorionic hemorrhage. 3. Unremarkable appearing ovaries. Course / Medical Decision Making ED Course as of Sep 13 1133 Mon Sep 13, 2020 1130 Given subchorionic hemorrhage and A- blood type, will tx with rhogam. [] 1131 Discussed all results with patient. Discussed home care, return precautions and need for follow up. Patient verbalized understanding and agreement with plan. [] ED Course User Index [] Casandra Arita MD Pulse Ox Interpretation: Saturation: 96 (%) Oxygen Delivery: RA Interpretation: No acute hypoxia at this time. Data reviewed: All current, pertinent and timely studies (laboratory, imaging, and procedures) wereordered and results reviewed by Casandra Arita MD unless otherwise noted. Triage notes and available nursing notes reviewed. Previous medical record reviewed when available. Repeat vital signs reviewed. Medications rho D immune globulin (RHOPHYLAC) injection 300 mcg (has no administration in time range) acetaminophen (TYLENOL) tablet 1,000 mg (1,000 mg Oral Given 09/13/20 0744) Clinical Impression Rh negative status during Abdominal pain affecting (Primary) Subchorionic hemorrhage There are no discharge medications for this patient. Disposition: Discharge Follow-Up: BEL BENITEZ MD I, Uzma Jurado, acting as a scribe, am personally taking down the notes in the presence of Casandra Arita MD. Take no action on this note until reviewed and authenticated by the physician. Casandra Arita MD 09/13/20 1134 GE PICKING SUPERVISOR * Umm Reyes RN - 09/13/2020 6:58 AM CST Pt reports excruciating pulling pain, yanking feeling, pt denies bleeding at this time. Pt reports that she is about 10 weeks , sees Dr. Johnson. GE PICKING SUPERVISOR documented in this encounter Plan of Treatment Not on file documented as of this encounter Procedures Procedure Name Priority Date/Time Associated Diagnosis Comments US OB TRANSVAG STAT 09/13/2020 10:56 AM ORANGE PICKING SUPERVISOR COMPREHENSIVE METABOLIC PANEL JOSE ENRIQUE 09/13/2020 8:45 AM ORANGE PICKING SUPERVISOR LIPASE JOSE ENRIQUE 09/13/2020 8:45 AM ORANGE PICKING SUPERVISOR HC URINALYSIS AUTO W/O MICRO STAT 09/13/2020 7:41 AM ORANGE PICKING SUPERVISOR URINE BACTERIA CULTURE Routine 7:41 AM ORANGE PICKING SUPERVISOR HCG QUANT (SERUM)-CHORIONIC GONADOTROPIN STAT 09/13/2020 7:41 AM ORANGE PICKING SUPERVISOR HC BLOOD TYPING ABO STAT 09/13/2020 7 :41 AM ORANGE PICKING SUPERVISOR CBC W/DIFF AUTOMATED STAT 09/13/2020 7:41 AM ORANGE PICKING SUPERVISOR documented in this encounter Results * US OB TRANSVAG (09/13/2020 10:56 AM ORANGE PICKING SUPERVISOR) Anatomical Region Laterality Modality Abdomen, Pelvis Ultrasound 09/13/2020 11:1 0 AM ORANGE PICKING SUPERVISOR Impressions 09/13/2020 11:14 AM ORANGE PICKING SUPERVISOR IMPRESSION: 1. Living single intrauterine gestation of approximately 6.5 weeks gestational age. 2. Probable small subchorionic hemorrhage. 3. Unremarkable appearing ovaries. Narrative 09/13/2020 11:14 AM ORANGE PICKING SUPERVISOR Examination: OB ultrasound. Exam time: 0955 hours. Clinical history: Umbilical pain. Early . Comparison: None. Technique: Endovaginal grayscale, M-mode and color Doppler images including spectral analysis. Findings: The uterus measures 9.1 cm in length. No myometrial abnormality is identified. Single intrauterine gestation is present. There is good surrounding decidual reaction. Small mildly complicated perigestational fluid collection suggests subchorionic hemorrhage. An embryo and yolk sac are visible. Kelso-rump length corresponds to a mean gestational age of approximately 6.5 weeks. GEGE by ultrasound is 05/05/2021. Embryonic heart motion is documented at a rate of 122 bpm. Early gestation precludes anatomic or placental assessment. The amniotic fluid volume is within normal limits. Both ovaries are identified. The right ovary measures 2.8 cm in greatest dimension. The left ovary measures 3.5 cm in greatest dimension. Flow to both ovaries is documented on color Doppler with normal appearing spectra. A few follicles are present. No adnexal mass or fluid collection is identified. Procedure Note Umair Schultz MD - 09/13/2020 Examination: OB ultrasound. Exam time: 0955 hours. Clinical history: Umbilical pain. Early . Comparison: None. Technique: Endovaginal grayscale, M-mode and color Doppler imagesincluding spectral analysis. Findings: The uterus measures 9.1 cm in length. No myometrialabnormality is identified. Single intrauterine gestation is present. There is good surrounding decidual reaction. Small mildly complicated perigestational fluid collection suggests subchorionic hemorrhage. An embryo and yolksac are visible. Kelso-rump length corresponds to a mean gestational age of approximately 6.5 weeks. GEGE by ultrasound is 05/05/2021. Embryonic heart motion is documented at a rate of 122 bpm. Early gestation precludes anatomic or placental assessment. The amniotic fluid volume is within normal limits. Both ovaries are identified. The right ovary measures 2.8cm in greatest dimension. The left ovary measures 3.5 cm in greatest dimension. Flow to both ovaries is documented on color Doppler withnormal appearing spectra. A few follicles are present. No adnexal mass or fluid collection is identified. IMPRESSION: 1. Living single intrauterine gestation of approximately 6.5 weeks gestational age. 2. Probable small subchorionic hemorrhage. 3. Unremarkable appearing ovaries. us Casandra Arita MD ULTRASOUND Final Result * LIPASE (09/13/2020 8:45 AM ORANGE PICKING SUPERVISOR) LIPASE 73 73 - 393 UNITS/L 09/13/2020 10:03 AM [facility] 09/13/2020 8:45 AM ORANGE PICKING SUPERVISOR Casandra Arita MD LABORATORY Final Result [facility] [address] [place] [address], * (ABNORMAL) COMPREHENSIVE METABOLIC PANEL (09/13/2020 8:45 AM ORANGE PICKING SUPERVISOR) Pathologist [facility] GLUCOSE 84 70 - 99 MG/DL 09/13/2020 10:03 AM [facility] BUN 4(L) 7 - 18 MG/DL 09/13/2020 10:03 AM [facility] CREATININE S/P/B 0.52(L) 0.55 - 1.02 MG/DL 09/13/2020 10:03 AM [facility] SODIUM S/P/B 136 136 - 145 MMOL/L 09/13/2020 10:03 AM [facility] POTASSIUM S/P/B 3.7 3.5 - 5.1 MMOL/L 09/13/2020 10:03 AM [facility] CHLORIDE S/P/B 107 100 - 108 MMOL/L 09/13/2020 10:03 AM [facility] CO2 22.1 21 - 32 MMOL/L 09/13/2020 10:03 AM [facility] CALCIUM S/P/B 9.2 8.5 - 10.1 MG/DL 09/13/2020 10:03 AM [facility] BILIRUBIN TOTAL S/P/B 0.3 0.2 - 1.2 MG/DL 09/13/2020 10:03 AM [facility] Comment: THIS ASSAY IS NOT RECOMMENDED FOR PATIENTS UNDERGOING TREATMENT WITH ELTROMBOPAG DUE TO THE POTENTIAL FOR FALSELY ELEVATED RESULTS. TOTAL PROTEIN S/P/B 7.1 6.4 - 8.2 G/DL 09/13/2020 10:03 AM [facility] ALBUMIN S/P/B 3.7 3.4 - 5.0 G/DL 09/13/2020 10:03 AM [facility] AST 12(L) 15 - 37 U/L 09/13/2020 10:03 AM [facility] ALT 18 14 - 55 U/L 09/13/2020 10:03 AM [facility] ALKALINE PHOSPHATASE S/P/B 59 50 - 136 U/L 09/13/2020 10:03 AM [facility] ANION GAP 6.9 5 - 15 MMOL/L 09/13/2020 10:03 AM [facility] BUN CREATININE RATIO 7.7 6 - 26 09/13/2020 10:03 AM [facility] A/G RATIO 1.1 1.0 - 2.0 RATIO 09/13/2020 10:03 AM [facility] EGFR NON-AFR. AMER. >90 >90 ML/MIN/1.7 3 M2 09/13/2020 10:03 AM [facility] EGFR AFR. AMER. >90 >90 ML/MIN/1.7 3 M2 09/13/2020 10:03 AM [facility] Comment: NOTE: eGFR is not calculated for patients <18 years of age. This is an estimated GFR (CKD EPI) and should not be used for calculating drug doses. 09/13/2020 8:45 AM ORANGE PICKING SUPERVISOR us Casandra Arita MD LABORATORY Final Result [facility] [address] [place] [address], * CULTURE URINE (09/13/2020 7:41 AM ORANGE PICKING SUPERVISOR) Pathologist [facility] SPEC DESCRIPTION URINE CLEAN CATCH 09/13/2020 8:31 AM ORANGE PICKING SUPERVISOR [facility] SPECIAL REQUESTS NO SPECIAL REQUEST 09/13/2020 8:31 AM ORANGE PICKING SUPERVISOR [facility] CULTURE RESULT POLYMICROBIAL GROWTH CONSISTENT WITH NORMAL GENITAL UZMA. ?? SUSCEPTIBILITIES NOT ROUTINELY PERFORMED. 09/15/2020 8:31 AM ORANGE PICKING SUPERVISOR [facility] URINE SPECIMEN OBTAINED BY CLEAN CATCH PROCEDURE / Unknown 09/13/2020 7:41 AM ORANGE PICKING SUPERVISOR 09/13/2020 8:31 AM ORANGE PICKING SUPERVISOR Casandra Arita MD MICROBIOLOGY - GENERAL ORDERA BLES Final Result [facility] [address] [place] [address], * HCG QUANTITATIVE SERUM (09/13/2020 7:41 AM ORANGE PICKING SUPERVISOR) Pathologist [facility] HCG QUANTITATIVE 72,495 MIU/ML 09/13/19 21 8:50 AM ORANGE PICKING SUPERVISOR [facility] Comment: WEEKS OF ? REFERENCE RANGES Non- female ?< or = 2 ? 0.2 - 1 ? 5 - 50 ? 1 - 2 ? 50 - 500 ? 2 - 3 ? 100 - 5000 ? 3 - 4 ? 500 - 10,000 ? 4 - 5 ? 1000 - 50,000 ? 5 - 6 ? 10,000 - 100,000 ? 6 - 8 ? 15,000 - 200,000 ? 2 - 3 MONTHS ?10,000 - 100,000 09/13/2020 7:41 AM ORANGE PICKING SUPERVISOR Casandra Arita MD LABORATORY Final Result Performing Organization Address [facility] de Phone Number [facility] [address] [place] [address], [place] [phone] * BLOOD TYPING, ABO AND RH (09/13/2020 7:41 AM ORANGE PICKING SUPERVISOR) ABO/RH A NEGATIVE 09/13/2020 8:34 AM ORANGE PICKING SUPERVISOR [facility] 09/13/2020 7:41 AM ORANGE PICKING SUPERVISOR Casandra Arita MD BLOOD BANK TEST ORDERABLES Fi nal Result Performing Organization Address [facility] de Phone Number [facility] [address] [place] [address], [place] [phone] * (ABNORMAL) URINALYSIS (09/13/2020 7:41 AM ORANGE PICKING SUPERVISOR) SPECIMEN TYPE URINE CLEAN CATCH 09/13/2020 7:38 AM ORANGE PICKING SUPERVISOR [facility] COLOR (U) YELLOW 09/13/2020 8:30 AM [facility] TRANSPARENCY EXTREMELY TURBID 09/13/2020 8:30 AM [facility] SPECIFIC GRAVITY (U) 1.015 1.001 - 1.030 09/13/2020 8:30 AM ORANGE PICKING SUPERVISOR [facility] U PH 8.0 5.0 - 9.0 09/13/2020 8:30 AM [facility] LEUKOCYTES (U) 250(A) NEGATIVE 09/13/2020 8:30 AM [facility] NITRITES NEGATIVE NEGATIVE 09/13/2020 8:30 AM [facility] PROTEIN (U) 10 <30 MG/DL 09/13/2020 8:30 AM ORANGE PICKING SUPERVISOR [facility] URINE GLUCOSE NORMAL NORMAL MG/DL 09/13/2020 8:30 AM [facility] KETONES MG/DL (U) NEGATIVE NEGATIVE MG/DL 09/13/2020 8:30 AM [facility] UROBILINOGEN NORMAL NORMAL MG/DL 09/13/2020 8:30 AM [facility] BILIRUBIN (U) NEGATIVE NEGATIVE MG/DL 09/13/2020 8:30 AM [facility] BLOOD (U) NEGATIVE NEGATIVE 09/13/2020 8:30 AM [facility] CULTURE & SENSITIVITY INDICATED? SPECIMEN SETUP FOR CULTURE 09/13/2020 8:30 AM [facility] MUCUS RARE /LPF 09/13/2020 8:30 AM [facility] BUDDING YEAST MANY(A) NONE /HPF 09/13/2020 8:30 AM [facility] SPERM (U) SPERMATOZOA PRESENT 09/13/2020 8:30 AM ORANGE PICKING SUPERVISOR [facility] SQUAMOUS EPITHELIALS RARE /HPF 09/13/2020 8:30 AM [facility] URINE SPECIMEN OBTAINED BY CLEAN CATCH PROCEDURE / Unknown 09/13/2020 7:41 AM ORANGE PICKING SUPERVISOR us Casandra Arita MD URINE ORDERABLES Final Result [facility] [address] [place] [address], * (ABNORMAL) CBC W/DIFF AUTOMATED (09/13/2020 7:41 AM ORANGE PICKING SUPERVISOR) WBC 11.6 4.5 - 13.0 x10'3/uL 09/13/2020 8:16 AM ORANGE PICKING SUPERVISOR [facility] RBC 4.34 4.20 - 5.40 x10'6/uL 09/13/2020 8:16 AM [facility] HGB 12.2 12.0 - 16.0 G/DL 09/13/2020 8:16 AM [facility] HCT 37.5(L) 38.0 - 48.0 % 09/13/2020 8:16 AM [facility] MCV 86.4 81.0 - 99.0 FL 09/13/2020 8:16 AM [facility] MCH 28.1 27.0 - 31.0 PG 09/13/2020 8:16 AM [facility] MCHC 32.5 32.0 - 36.0 G/DL 09/13/2020 8:16 AM [facility] RDW 13.2 11.5 - 14.5 % 09/13/2020 8:16 AM [facility] PLT 339 130 - 400 x10'3/uL 09/13/2020 8:16 AM [facility] MPV 9.3 9.3 - 12.2 FL 09/13/2020 8:16 AM [facility] DIFFERENTIAL TYPE AUTOMATED DIFFERENTIAL 09/13/2020 8:16 AM [facility] NEUTROPHILS % 67.3 % 09/13/2020 8:16 AM ORANGE PICKING SUPERVISOR [facility] LYMPHOCYTES % 21.6 % 09/13/2020 8:16 AM ORANGE PICKING SUPERVISOR [facility] MONOCYTES % 8.3 % 09/13/2020 8:16 AM [facility] EOSINOPHILS 1.3 % 09/13/2020 8:16 AM ORANGE PICKING SUPERVISOR [facility] BASOPHILS 0.9 % 09/13/2020 8:16 AM ORANGE PICKING SUPERVISOR [facility] IMMATURE GRANS % 0.6 % 09/13/19 8:16 AM [facility] ABS. NEUTROPHILS TOTAL 7.83 1.80 - 8.00 x10'3/uL 09/13/2020 8:16 AM [facility] ABS. LYMPHOCYTES 2.51 1.20 - 5.20 x10'3/uL 09/13/2020 8:16 AM ORANGE PICKING SUPERVISOR [facility] ABS. MONOCYTES 0.97(H) 0.24 - 0.86 x10'3/uL 09/13/2020 8:16 AM ORANGE PICKING SUPERVISOR [facility] ABS. EOSINOPHILS 0.15 0.04 - 0.36 x10'3/uL 09/13/2020 8:16 AM [facility] ABS. BASOPHILS 0.10(H) 0.01 - 0.08 x10'3/uL 09/13/2020 8:16 AM [employer] P[employer]ING SUPERVISOR [facility] ABS. IMMATURE GRANULOCYTES 0.07 0.00 - 0.49 x10'3/uL 09/13/2020 8:16 AM [facility] 09/13/2020 7:41 AM [employer] PICKING SUPERVISOR us Casandra Arita MD LABORATORY Final Result [facility] [address] [place] [address], documented in this encounter Visit Diagnoses Diagnosis Abdominal pain affecting (HHS/HCC)- Primary Rh negative status during (HHS/HCC) Rhesus isoimmunization unspecified as to episode of care in Subchorionic hemorrhage (HHS/HCC) Other antepartum hemorrhage, unspecified as to episode of care documented in this encounter Administered Medications Inactive Administered Medications - up to 3 most recent administrations Medication Order MAR Action Action Date Dose Rate Site acetaminophen (TYLENOL) tablet 1,000 mg 1,000 mg, Oral, Once, 1 dose, On Sun09/13/20 at 0745, Maximum dose of acetaminophen is 4000 mg from all sources in 24 hours. Given 09/13/2020 7:44 AM [employer] P[employer]ING SUPERVISOR 1,000 mg rho D immune globulin (RHOPHYLAC) injection 300 mcg 300 mcg, Intravenous, Once, 1 dose, On Sun09/13/20 at 1145, Prevention of rhesus (Rh) isoimmunization: Infuse at 2 mL per 5 to 15 seconds. Treatment of ITP: Infuse over 3 to 5 minutes. Given 09/13/2020 11:52 AM [employer]ING SUPERVISOR 300 mcg documented in this encounter Active and Recently Administered Medications Times are shown in [employer]. Scheduled Medication Order 09/11/2020 09/12/2020 09/13/2020 acetaminophen (TYLENOL) tablet 1,000 mg (COMPLETED) 1,000 mg, Oral, Once, 1 dose, On Sun09/13/20 at 0745, Maximum dose of acetaminophen is 4000 mg from all sources in 24 hours. 0744 (Given - Provid er: Kiet Haines RN) rho D immune globulin (RHOPHYLAC) injection 300 mcg (COMPLETED) 300 mcg, Intravenous, Once, 1 dose, On Sun09/13/20 at 1145, Prevention of rhesus (Rh) isoimmunization: Infuse at 2 mL per 5 to 15 seconds. Treatment of ITP: Infuse over 3 to 5 minutes. 1152 (Given - Provid er: Kiet Haines RN) documented in this encounter Care Teams Entry Level Marketing Assistant Relationship Specialty Start Date End Date Bel Benitez MD [address] [facility] [address] [place] [address] PCP - General FAMILY PRACTICE 02/18/19 11/06/20 documented as of this encounter
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
--- OUTSIDE RECORDS SUMMARY | 2024-08-05 00:15 | XMS_ITS | Encounter Summary ---
Author Organization [facility] Address [address] [place] [address]. [place], [place] [id number] [place] [address] Care Team Providers Care Insulation Engineman Name Role Phone Bel Benitez MD Primary Care Provider [phone] Encounter Details Date Type Department Care Team (Late st Contact Info) Description 10/07/2020 Orders Only [facility] [place] [address] Zo Merchant MD [address] [facility] [address] [place] [address] Social History Tobacco Use Types Packs/Day [...] have Coronavirus / COVID-19? No / Unsure 10/07/2020 3:29 PM RETAINING ROOM CUTTER documented as of this encounter Plan of Treatment Not on file documented as of this encounter Results * HEMOGLOBIN, GLYCOSYLATED (10/07/2020 3:42 PM RETAINING ROOM CUTTER) HGB A1C 4.8 <5.7 % 10/07/2020 7:38 PM RETAINING ROOM CUTTER [facility] Comment: ADA GUIDELINES 2010 5.7 TO 6.4% INCREASED RISK OF DIABETES > OR = 6.5% CONSISTENT WITH DIABETES ESTIMATED AVG GLUCOSE 91 mg/dL 10/07/2020 7:38 PM RETAINING ROOM CUTTER [facility] 10/07/2020 3:42 PM RETAINING ROOM CUTTER Zo Merchant MD LABORATORY Final Res ult Performing Organization Address [facility] de Phone Number [facility] [address] [place] [address], * (ABNORMAL) VITAMIN D, 25 OH (10/07/2020 3:42 PM RETAINING ROOM CUTTER) VITAMIN D 25 HYDROXY S/P/B 14(L) 30 - 100 NG/ML 10/07/2020 7:15 PM RETAINING ROOM CUTTER [facility] Comment: ? INTERPRETATION ? DEFICIENT ??<20 ? INSUFFICIENT 20-29 ?SUFFICIENT 30-100 10/07/2020 3:42 PM RETAINING ROOM CUTTER Zo Merchant MD LABORATORY Final Res ult Performing Organization Address [facility] Co de Phone Number [facility] [address] [place] [address], * HIV 1 ANTIGEN(S), WITH HIV-1 AND HIV-2 ANTIBODIES (10/07/2020 3:42 PM RETAINING ROOM CUTTER) HIV 1/2 AB+ HIV1 P24 AG NON-REACTI VE NON-REACTI VE 10/07/2020 5:12 PM RETAINING ROOM CUTTER [facility] 10/07/2020 3:42 PM RETAINING ROOM CUTTER Zo Merchant MD LABORATORY Final Res ult [facility] [address] [place] [address], [place] [phone] * SYPHILIS IGG AB (RPR) (10/07/2020 3:42 PM RETAINING ROOM CUTTER) SYPHILIS IGG AB NON-REACTI VE NON-REACTI VE 10/07/2020 7:15 PM RETAINING ROOM CUTTER [facility] 10/07/2020 3:42 PM RETAINING ROOM CUTTER Zo Merchant MD LABORATORY Final Res ult Performing Organization Address City/[facility]/ZIP Co de Phone Number [facility] [address] [place] [address], [place] [phone] * BLOOD TYPING, ABO AND RH (10/07/2020 3:42 PM RETAINING ROOM CUTTER) ABO/RH A NEGATIVE 10/07/2020 5:15 PM RETAINING ROOM CUTTER [facility] 10/07/2020 3:42 PM RETAINING ROOM CUTTER us Zo Merchant MD BLOOD BANK TEST ORDERABLE S Final Result Performing Organization Address City/[facility]/ZIP Co de Phone Number [facility] [address] [place] [address], [place] [phone] * RUBELLA IGG (10/07/2020 3:42 PM RETAINING ROOM CUTTER) [facility] RUBELLA IGG AB 72.30 10/07/2020 7:15 PM RETAINING ROOM CUTTER [facility] Comment: IMMUNITY PRESENT RUBELLA IGG ANTIBODY INTERPRETATION <5 IU/ML SUGGESTS NONIMMUNITY >=5 TO <10 IU/ML EQUIVOCAL RANGE >=10 IU/ML SUGGESTS IMMUNITY FOR SPECIMENS IN THE EQUIVOCAL RANGE, A ?? NEW SPECIMEN SHOULD BE OBTAINED IN 6 WEEKS ?? AND RETESTED FOR RUBELLA IGG ANTIBODY. ?? ANTIBODY LEVELS IN THE EQUIVOCAL RANGE ?? MAY BE INSUFFICIENT TO PROTECT AGAINST ?? CLINICAL ILLNESS UPON EXPOSURE TO ?? RUBELLA VIRUS. 10/07/2020 3:42 PM RETAINING ROOM CUTTER Zo Merchant MD LABORATORY Final Res ult Performing Organization Address City/[facility]/ZIP Co de Phone Number [facility] [address] [place] [address], [place] [phone] * HEPATITIS B SURFACE AG, EIA (10/07/2020 3:42 PM RETAINING ROOM CUTTER) [facility] HEPATITIS B SURFACE AG NON-REACTI VE NON-REACTI VE 10/07/2020 4:44 PM RETAINING ROOM CUTTER [facility] 10/07/2020 3:42 PM RETAINING ROOM CUTTER Zo Merchant MD LABORATORY Final Res ult Performing Organization Address City/[facility]/ZIP Co de Phone Number [facility] [address] [place] [address], [place] [phone] * (ABNORMAL) CBC W/DIFF AUTOMATED (10/07/2020 3:42 PM RETAINING ROOM CUTTER) [facility] WBC 10.4 4.5 - 13.0 x10'3/uL 10/07/2020 4:07 PM [facility] RBC 4.12(L) 4.20 - 5.40 x10'6/uL 10/07/2020 4:07 PM [facility] HGB 12.0 12.0 - 16.0 G/DL 10/07/2020 4:07 PM [facility] HCT 35.6(L) 38.0 - 48.0 % 10/07/2020 4:07 PM [facility] MCV 86.4 81.0 - 99.0 FL 10/07/2020 4:07 PM [facility] MCH 29.1 27.0 - 31.0 PG 10/07/2020 4:07 PM [facility] MCHC 33.7 32.0 - 36.0 G/DL 10/07/2020 4:07 PM [facility] RDW 12.9 11.5 - 14.5 % 10/07/2020 4:07 PM [facility] PLT 299 130 - 400 x10'3/uL 10/07/2020 4:07 PM [facility] MPV 9.1(L) 9.3 - 12.2 FL 10/07/2020 4:07 PM [facility] DIFFERENTIAL TYPE AUTOMATED DIFFERENTIAL 10/07/2020 4:07 PM [facility] NEUTROPHILS % 67.8 % 10/07/2020 4:07 PM [facility] LYMPHOCYTES % 21.1 % 10/07/2020 4:07 PM [facility] MONOCYTES % 8.7 % 10/07/2020 4:07 PM [facility] EOSINOPHILS 1.4 % 10/07/2020 4:07 PM RETAINING ROOM CUTTER [facility] BASOPHILS 0.5 % 10/07/2020 4:07 PM RETAINING ROOM CUTTER [facility] IMMATURE GRANS % 0.5 % 10/07/19 4:07 PM RETAINING ROOM CUTTER [facility] ABS. NEUTROPHILS TOTAL 7.04 1.80 - 8.00 x10'3/uL 10/07/2020 4:07 PM RETAINING ROOM CUTTER [facility] ABS. LYMPHOCYTES 2.19 1.20 - 5.20 x10'3/uL 10/07/2020 4:07 PM RETAINING ROOM CUTTER [facility] ABS. MONOCYTES 0.90(H) 0.24 - 0.86 x10'3/uL 10/07/2020 4:07 PM RETAINING ROOM CUTTER [facility] ABS. EOSINOPHILS 0.14 0.04 - 0.36 x10'3/uL 10/07/2020 4:07 PM RETAINING ROOM CUTTER [facility] ABS. BASOPHILS 0.05 0.01 - 0.08 x10'3/uL 10/07/2020 4:07 PM RETAINING ROOM CUTTER [facility] ABS. IMMATURE GRANULOCYTES 0.05 0.00 - 0.49 x10'3/uL 10/07/2020 4:07 PM [facility] 10/07/2020 3:42 PM RETAINING ROOM CUTTER us Zo Merchant MD LABORATORY Final Res ult [facility] [address] [place] [address], [place] [phone] documented in this encounter Visit Diagnoses Diagnosis Unspecified screening (HHS/HCC)- Primary Unspecified screening documented in this encounter Care Teams Insulation Engineman Relationship Specialty Start Date End Date Bel Benitez MD 3 [facility] [address] [place] [address] PCP - General FAMILY PRACTICE 02/18/19 11/06/20 documented as of this encounter
--- OUTSIDE RECORDS SUMMARY | 2024-08-05 00:15 | XMS_ITS | Encounter Summary ---
Author Organization [facility] Address [address] [place] [address]. [place], [place] [id number] [place] [id number] Care Team Providers Care Practice Nurse Name Role Phone None, Provider MD Primary Care Provider Unavaila ble Reason for Visit * Reason Comments Vomiting Encounter Details Date Type Department Care Team (Late st Contact Info) Description 11/07/2020 9:22 PM CDT - 11/08/2020 1:27 AM CDT Emergency [facility] [place] [address] Boogie Rangel PA-C [address] [place], [place] [id number] Vomiting Discharge Disposition: Home or Self Care (Routine [...] have Coronavirus / COVID-19? No / Unsure 11/07/2020 7:50 PM CDT documented as of this encounter Last Filed Vital Signs Vital Sign Reading Time Taken Comments Blood Pressure 111/67 11/07/2020 11:29 PM CDT Pulse 76 11/07/2020 11:29 PM CDT Temperature 36.7 ??C (98 ??F) 11/07/2020 7:50 PM CDT Respiratory Rate 18 11/07/2020 11:29 PM CDT Oxygen Saturation 100% 11/07/2020 11:29 PM CDT Inhaled Oxygen Concentration - - Weight 45.4 kg (100 lb) 11/07/2020 7:50 PM CDT Height 157.5 cm (5' 2 ) 11/07/2020 7:50 PM CDT Body Mass Index 18.29 11/07/2020 7:50 PM CDT documented in this encounter Discharge Instructions * Discharge Instructions* Boogie Rangel PA-C - 11/08/2020 1:20 AM CDT Take 1 tablet 25 mg doxylamine (Unisom) up to 4 times daily as needed for nausea/vomiting. Take 1 tablet B6 vitamin daily. Use them in conjunction with all your other medications for nausea These medicines are to help with nausea and vomiting and should be taken as needed over the next few days. Both of these medications are available [id number], however I prescribed them to you from the pharmacist as well Please follow-up with your QUANTITATIVE ASSOCIATE as discussed. * Attachments The following attachments cannot be sent through Care Everywhere. * Hyperemesis Gravidarum (Zambian) documented in this encounter Medications at Time [...] TABLET DAY SIX 1 each 11/08/2020 05/13/2021 metoclopramide 5 MG tablet Take 1 tablet (5 mg total) by mouth 4 (four) times daily for 10 days. 40 tablet 11/08/2020 11/18/2020 ondansetron 4 MG tablet Take 4 mg by mouth every 8 (eight) hours as needed for Nausea. 05/14/2021 28-0.8 MG tablet Take 1 tablet by mouth daily. 05/13/2021 Pyridoxine HCl 25 MG Tab Take 25 mg by mouth nightly as needed (for nausea/vomiti ng). 30 tablet 11/08/2020 05/13/2021 vitamin D2, ergocalciferol, 57494 UNITS capsule Take 50,000 Units by mouth twice a week. 10/19/2020 05/13/2021 documented as of this encounter ED Notes * Boogie Rangel PA-C - 11/07/2020 10:48 PM CDT [place], [place] EMERGENCY DEPARTMENT ENCOUNTER Patient: Lorri Deshpande Date of : 2000 Chief Complaint Chief Complaint Patient presents with ??? Vomiting History of Present Illness Lorri Deshpande is a 20-year-old female with a past medical history of nausea/vomiting in presents to ED for evaluation of persistent sx of N/V for the past week. She admits to epigastric abdominal pain w/o pelvic pain or vaginal bleeding/discharge. Denies EtOH or fevers. No relief with home zofran. OB: Dr. Johnson Current medications: reviewed Medical History ALLERGIES: Allergies Allergen Reactions ??? Pcn [Penicillin V] Anaphylaxis ??? Wasp Venom Anaphylaxis ??? Rocephin [Ceftriaxone] Other (see comment) numbness MEDICATIONS: Prior to Admission medications Medication Sig Start Date End Date Taking? Authorizing Provider doxylamine 25 MG tablet Take 1 tablet (25 mg total) by mouth nightly as needed for Sleep. 11/08/20 Yes Boogie Rangel PA-C methylPREDNISolone, LEANNE, 4 MG tablet 6 TABLETS ON DAY ONE, 5 TABLETS DAY TWO, 4 TABLETS DAY THREE, 3 TABLETS DAY FOUR, 2 TABLETS DAY FIVE, AND 1 TABLET DAY SIX 11/08/20 Yes Boogie Rangel PA-C metoclopramide 5 MG tablet Take 1 tablet (5 mg total) by mouth 4 (four) times daily for 10 days. 11/08/20 11/18/20 Yes Boogie Rangel PA-C ondansetron 4 MG tablet Take 4 mg by mouth every 8 (eight) hours as needed for Nausea. Yes Doc Abstract 28-0.8 MG tablet Take 1 tablet by mouth daily. Yes Doc Abstract Pyridoxine HCl 25 MG Tab Take 25 mg by mouth nightly as needed (for nausea/vomiting). 11/08/20 Yes Boogie Rangel PA-C vitamin D2, ergocalciferol, 53092 UNITS capsule Take 50,000 Units by mouth twice a week. 10/19/20 YesDoc Abstract PAST MEDICAL HISTORY: Past Medical History: Diagnosis [...] Review of Systems Review of Systems Constitutional: Denies fever, chills Skin: Denies rash. HEENT: Denies sore throat or ear pain. Respiratory: Denies shortness of breath. Cardiovascular: Denies chest pain, palpitations or swelling. GI: see HPI; denies diarrhea/constipation. : Denies dysuria, urinary frequency. Musculoskeletal: Denies back pain/joint pain Neurologic: Denies tingling or sensory changes. Psychiatric: Denies changes in mood See HPI for further details. All systems negative except as marked. Physical Exam Nursing Notes reviewed. Filed Vitals: 11/07/20 1950 11/07/20 2329 BP: 117/64 111/67 Pulse: 90 76 Resp: 18 18 Temp: 98 ??F (36.7 ??C) TempSrc: Temporal SpO2: 100% 100% Weight: 45.4 kg (100 lb) Height: 5' 2 (1.575 m) Physical Exam Constitutional: Well developed, No acute distress, Non-toxic appearance. Appears stated age Integument: Warm, Dry, No erythema, No rash. HEENT: Normocephalic, Atraumatic, Conjunctiva normal Neck- Normal range of motion, Supple Back- No tenderness Respiratory: No respiratory distress. Breath sounds normal bilaterally Cardiovascular: Normal heart rate. Normal rhythm GI: Bowel sounds normal, Soft, mild epigastric tenderness w/o guarding. No pelvic/suprapubic tenderness. Musculoskeletal: Good ROM, no deformities noted Neurologic: Alert & oriented x 3, No focal deficits noted. Psychiatric: Affect normal, Judgment normal, Mood normal. /pelvic: Deferred Diagnostic Studies / Procedures ELECTROCARDIOGRAMS: No results found for this visit on 11/07/20. LABORATORY STUDIES: Results for orders placed or performed during the hospital encounter of 11/07/20 CBC W/DIFF AUTOMATED Result Value Ref Range WBC 10.7 4.5 - 13.0 x10'3/uL RBC 4.36 4.20 - 5.40 x10'6/uL HGB 12.8 12.0 - 16.0 G/DL HCT 37.7 (L) 38.0 - 48.0 % MCV 86.5 81.0 - 99.0 FL MCH 29.4 27.0 - 31.0 PG MCHC 34.0 32.0 - 36.0 G/DL RDW 13.4 11.5 - 14.5 % PLT 314 130 - 400 x10'3/uL MPV 8.8 (L) 9.3 - 12.2 FL DIFFERENTIAL TYPE AUTOMATED DIFFERENTIAL NEUTROPHILS 74.3 % LYMPHOCYTES 16.9 % MONOCYTES 6.8 % EOSINOPHILS 0.8 % BASOPHILS 0.5 % IMMATURE GRANS 0.7 % ABS. NEUTROPHILS TOTAL 7.93 1.80 - 8.00 x10'3/uL ABS. LYMPHOCYTES 1.80 1.20 - 5.20 x10'3/uL ABS. MONOCYTES 0.73 0.24 - 0.86 x10'3/uL ABS. EOSINOPHILS 0.09 0.04 - 0.36 x10'3/uL ABS. BASOPHILS 0.05 0.01 - 0.08 x10'3/uL ABS. IMMATURE GRANULOCYTES 0.07 0.00 - 0.49 x10'3/uL COMPREHENSIVE METABOLIC PANEL Result Value Ref Range GLUCOSE 76 70 - 99 MG/DL BUN 5 (L) 7 - 18 MG/DL CREATININE S/P/B 0.46 (L) 0.55 - 1.02 MG/DL SODIUM 135 (L) 136 - 145 MMOL/L POTASSIUM 3.2 (L) 3.5 - 5.1 MMOL/L CHLORIDE S/P/B 103 100 - 108 MMOL/L CO2 23.8 21 - 32 MMOL/L CALCIUM 9.1 8.5 - 10.1 MG/DL BILIRUBIN TOTAL S/P/B 0.4 0.2 - 1.2 MG/DL TOTAL PROTEIN S/P/B 8.4 (H) 6.4 - 8.2 G/DL ALBUMIN S/P/B 3.8 3.4 - 5.0 G/DL AST 14 (L) 15 - 37 U/L ALT 16 14 - 55 U/L ALKALINE PHOSPHATASE S/P/B 60 50 - 136 U/L ANION GAP 8.2 5 - 15 MMOL/L BUN CREATININE RATIO 10.9 6 - 26 A/G RATIO 0.8 (L) 1.0 - 2.0 RATIO eGFR Non-Afr. Amer. >90 >90 ML/MIN/1.73 M2 eGFR Afr. Amer. >90 >90 ML/MIN/1.73 M2 LIPASE Result Value Ref Range LIPASE 96 73 - 393 UNITS/L URINALYSIS WI REFLEX TO CULTURE Specimen: URINE, CLEAN CATCH Result Value Ref Range Specimen Type URINE CLEAN CATCH COLOR (U) LIGHT YELLOW TRANSPARENCY CLEAR Specific [place] (U) 1.020 1.001 - 1.030 U PH 5.5 5.0 - 9.0 LEUKOCYTE ESTERASE 500 (A) NEGATIVE NITRITES NEGATIVE NEGATIVE PROTEIN (U) 10 <30 MG/DL URINE GLUCOSE NORMAL NORMAL MG/DL U KETONES 100 (A) NEGATIVE MG/DL UROBILINOGEN NORMAL NORMAL MG/DL BILIRUBIN (U) NEGATIVE NEGATIVE MG/DL BLOOD NEGATIVE NEGATIVE CULTURE & SENSITIVITY INDICATED? SPECIMEN SETUP FOR CULTURE MUCUS RARE /LPF WBC/HPF 11 (H) <6 /HPF RBC/HPF 5 <6 /HPF BACTERIA (URINE) RARE (A) NONE /HPF SQUAMOUS EPITHELIALS FEW /HPF IMAGING STUDIES: No orders to display MEDICATIONS: Medications dextrose 5 % lactated ringers infusion ( Intravenous Infusion Stop Time 11/07/202246) metoclopramide (REGLAN) injection 10 mg (10 mg Intravenous Given 11/07/202139) methylPREDNISolone (MEDROL) tablet 16 mg (16 mg Oral Given 11/08/20 0046) ondansetron (ZOFRAN) injection 4 mg (4 mg Intravenous Given 11/08/20 0029) Current Discharge Medication List START taking these medications Details doxylamine 25 MG tablet Take 1 tablet (25 mg total) by mouth nightly as needed for Sleep. Qty: 30 tablet, Refills: 0 Class: Eprescribe Pharmacy: [place] [address] (Ph #: [phone]) methylPREDNISolone, LEANNE, 4 MG tablet 6 TABLETS ON DAY ONE, 5 TABLETS DAY TWO, 4 TABLETS DAY THREE, 3 TABLETS DAY FOUR, 2 TABLETS DAY FIVE, AND 1 TABLET DAY SIX Qty: 1 each, Refills: 0 Class: Eprescribe Pharmacy: [place] [address] (Ph #: [phone]) metoclopramide 5 MG tablet Take 1 tablet (5 mg total) by mouth 4 (four) times daily for 10 days. Qty: 40 tablet, Refills: 0 Class: Eprescribe Pharmacy: [place] [address] (Ph #: [phone]) Pyridoxine HCl 25 MG Tab Take 25 mg by mouth nightly as needed (for nausea/vomiting). Qty: 30 tablet, Refills: 0 Class: Eprescribe Pharmacy: [place] [address] (Ph #: [phone]) ED Course / Medical Decision Making Nursing notes reviewed. Plan Monitoring, labs, IVF, UA DDx Hyperemesis, dehydration, JAY, other Rhythm Strip intepretation (by ED provider): Rhythm: sinus Ventricular rate: 90 Pulse Oximeter interpretation: Saturation: >94% Oxygen device: Room Air Interpretation: Normal Critical Care time exclusive of procedures: NA Vital Signs interpretation: Normal Consultations: Dr. Johnson - Discussed pt and rec DC with steroid taper, add reglan, B6/unisom and close f/u with clinic tomorrow Progress: NAD, emesis resolved with reglan but nausea persists. HEART SCORE: N/A Medical Decision Making MDM Number of Diagnoses or Management Options Amount and/or Complexity of Data Reviewed Clinical lab tests: ordered and reviewed Tests in the medicine section of CPT??: ordered and reviewed Decide to obtain previous medical records or to obtain history from someone other than the patient:yes Discuss the patient with other providers: yes Risk of Complications, Morbidity, and/or Mortality Presenting problems: moderate Diagnostic procedures: minimal Management options: moderate I have discussed today's findings with the patient and provided information regarding the likely diagnosis. The patient has been given information regarding their treatment, follow up and concerning symptoms for which they should seek urgent or emergent attention. I have expressed the the importance of seeking attention should there be any new, or worsening symptoms or persistence of their condition. The patient is stable at discharge and has verbalized understanding of these instructions. I had my usual discussion with the patient and/or family/significant others present in which I explainedthe extreme importance of followup and return precautions for any change in symptoms or specific worsening of symptoms despite ED/UC interventions. The patient and/or family/significant others present all state clear understanding and all agree with discharge at this time. Any and all pertinent laboratory/imaging studies have been discussed and shared. All questions were answered prior to discharge. Medications dextrose 5 % lactated ringers infusion ( Intravenous Infusion Stop Time 11/07/202246) metoclopramide (REGLAN) injection 10 mg (10 mg Intravenous Given 11/07/20 2140) methylPREDNISolone (MEDROL) tablet 16 mg (16 mg Oral Given 11/08/20 0046) ondansetron (ZOFRAN) injection 4 mg (4 mg Intravenous Given 11/08/20 0029) Clinical Impression Hyperemesis gravidarum (Primary) Current Discharge Medication List START taking these medications Details doxylamine 25 MG tablet Take 1 tablet (25 mg total) by mouth nightly as needed for Sleep. Qty: 30 tablet, Refills: 0 Class: Eprescribe Pharmacy: [facility] [address] [place] [address] (Ph #: [phone]) methylPREDNISolone, LEANNE, 4 MG tablet 6 TABLETS ON DAY ONE, 5 TABLETS DAY TWO, 4 TABLETS DAY THREE, 3 TABLETS DAY FOUR, 2 TABLETS DAY FIVE, AND 1 TABLET DAY SIX Qty: 1 each, Refills: 0 Class: Eprescribe Pharmacy: [facility] [address] [place] [address] (Ph #: [phone]) metoclopramide 5 MG tablet Take 1 tablet (5 mg total) by mouth 4 (four) times daily for 10 days. Qty: 40 tablet, Refills: 0 Class: Eprescribe Pharmacy: [address] LORENZA RUIZ (Ph #: [phone]) Pyridoxine HCl 25 MG Tab Take 25 mg by mouth nightly as needed (for nausea/vomiting). Qty: 30 tablet, Refills: 0 Class: Eprescribe Pharmacy: [address] (Ph #: [phone]) New Prescriptions DOXYLAMINE 25 MG TABLET Take 1 tablet (25 mg total) by mouth nightly as needed for Sleep. METHYLPREDNISOLONE, LEANNE, 4 MG TABLET 6 TABLETS ON DAY ONE, 5 TABLETS DAY TWO, 4 TABLETS DAY THREE, 3 TABLETS DAY FOUR, 2 TABLETS DAY FIVE, AND 1 TABLET DAY SIX METOCLOPRAMIDE 5 MG TABLET Take 1 tablet (5 mg total) by mouth 4 (four) times daily for 10 days. PYRIDOXINE HCL 25 MG TAB Take 25 mg by mouth nightly as needed (for nausea/vomiting). Disposition: Discharge Impression: hyperemesis gravidarum Follow-Up: Reyes Johnson MD [address],[place] [phone] Call today FOR RECHECK BOOGIE RANGEL PA-C 11/08/2020 Boogie Rangel PA-C 11/08/20 0121 Cosigned by Rogers Fox MD,PHD at 11/08/2020 3:26 AM CDT * MARY ANN Steinberg 11/07/2020 7:55 PM CDT [place], [place] EMERGENCY DEPARTMENT ENCOUNTER Medical Screening Examination 11/07/20 7:55 PM Chief Complaint : Vomiting HPI : Lorri Deshpande is a 20-year-old female who presents diffuse abdominal pain, n/v currently 15 wks . Denies any bleeding. Hx of hyperemesis gravidum. No relief with zofran Vital Signs: Filed Vitals: 11/07/201949 BP: 117/64 Pulse: 90 Resp: 18 Temp: 98 ??F (36.7 ??C) TempSrc: Temporal SpO2: 100% Weight: 45.4 kg (100 lb) Height: 5' 2 (1.575 m) Physical exam: A brief physical exam was completed to facilitate/expedite patient care. [place] findings include: diffuse abdominal pain Plan: Labs were ordered to facilitate patient care. and IV fluids and antiemetics MARY ANN STEINBERG 11/07/2020 MARY ANN Steinberg 11/07/201955 Cosigned by Rogers Fox MD,PHD at 11/08/2020 3:26 AM CDT * Ladan Bello RN - 11/07/2020 7:55 PM CDT Spoke to Ric in OB- patient to be seen and treated in the ED. * Ladan Bello RN - 11/07/2020 7:52 PM CDT Patient ambulatory to triage with nausea and vomiting. Patient is approximately 15 weeks . Had an ultrasound at 12 weeks. Patient reports the nausea and vomiting has been ongoing. Patient reports weight loss. Zofran is nolonger helping. Patient reports unable to keep anything down. Denies pelvic pain. Denies vaginal bleeding. documented in this encounter Plan of Treatment Not on file documented as of this encounter Procedures Procedure Name Priority Date/Time Associated Diagnosis Comments URINALYSIS WI REFLEX TO CULTURE STAT 11/07/2020 9:51 PM CDT URINE BACTERIA CULTURE Routine 9:24 PM CDT COMPREHENSIVE METABOLIC PANEL STAT 11/07/2020 9:24 PM CDT CBC W/DIFF AUTOMATED STAT 11/07/2020 9:24 PM CDT LIPASE STAT 11/07/2020 9:24 PM CDT documented in this encounter Results * (ABNORMAL) URINALYSIS WI REFLEX TO CULTURE (11/07/2020 9:51 PM CDT) SPECIMEN TYPE URINE CLEAN CATCH 11/07/2020 9:51 PM CDT [facility] COLOR (U) LIGHT YELLOW 11/07/2020 11:16 PM CDT [facility] TRANSPARENCY CLEAR 11/07/2020 11:16 PM CDT [facility] SPECIFIC GRAVITY (U) 1.020 1.001 - 1.030 11/07/2020 11:16 PM CDT [facility] U PH 5.5 5.0 - 9.0 11/07/2020 11:16 PM CDT [facility] LEUKOCYTES (U) 500(A) NEGATIVE 11/07/2020 11:16 PM CDT [facility] NITRITES NEGATIVE NEGATIVE 11/07/2020 11:16 PM CDT [facility] PROTEIN (U) 10 <30 MG/DL 11/07/2020 11:16 PM CDT [facility] URINE GLUCOSE NORMAL NORMAL MG/DL 11/07/2020 11:16 PM CDT [facility] KETONES MG/DL (U) 100(A) NEGATIVE MG/DL 11/07/2020 11:16 PM CDT [facility] UROBILINOGEN NORMAL NORMAL MG/DL 11/07/2020 11:16 PM CDT [facility] BILIRUBIN (U) NEGATIVE NEGATIVE MG/DL 11/07/2020 11:16 PM CDT [facility] BLOOD (U) NEGATIVE NEGATIVE 11/07/2020 11:16 PM CDT [facility] CULTURE & SENSITIVITY INDICATED? SPECIMEN SETUP FOR CULTURE 11/07/2020 11:16 PM CDT [facility] MUCUS RARE /LPF 11/07/2020 11:17 PM CDT [facility] WBC/HPF 11(H) <6 /HPF 11/07/2020 11:17 PM CDT [facility] RBC/HPF 5 <6 /HPF 11/07/2020 11:17 PM CDT [facility] BACTERIA (U) RARE(A) NONE /HPF 11/07/2020 11:17 PM CDT [facility] SQUAMOUS EPITHELIALS FEW /HPF 11/07/2020 11:17 PM CDT [facility] URINE SPECIMEN OBTAINED BY CLEAN CATCH PROCEDURE / Unknown 11/07/2020 9:51 PM CDT us [facility] URINE ORDERABLES Final Result [facility] [address] [place] [address], [place] [phone] * CULTURE URINE (11/07/2020 9:24 PM CDT) SPEC DESCRIPTION URINE CLEAN CATCH 11/07/2020 11:20 PM CDT [facility] SPECIAL REQUESTS NO SPECIAL REQUEST 11/07/2020 11:20 PM CDT [facility] CULTURE RESULT POLYMICROBIAL GROWTH CONSISTENT WITH NORMAL GENITAL UZMA. ?? SUSCEPTIBILITIES NOT ROUTINELY PERFORMED. 11/09/2020 9:47 AM CDT [facility] URINE SPECIMEN OBTAINED BY CLEAN CATCH PROCEDURE / Unknown 11/07/2020 9:24 PM CDT 11/07/2020 11:19 PM CDT [facility] MICROBIOLOGY - GENERAL ORDERA BLES Final Result [facility] [address] [place] [address], [place] [phone] * LIPASE (11/07/2020 9:24 PM CDT) LIPASE 96 73 - 393 UNITS/L 11/07/2020 10:08 PM CDT [facility] 11/07/2020 9:24 PM CDT us [facility] Final Result [facility] [address] [place] [address], [place] [phone] * (ABNORMAL) COMPREHENSIVE METABOLIC PANEL (11/07/2020 9:24 PM CDT) GLUCOSE 76 70 - 99 MG/DL 11/07/2020 10:08 PM CDT [facility] BUN 5(L) 7 - 18 MG/DL 11/07/2020 10:08 PM CDT [facility] CREATININE S/P/B 0.46(L) 0.55 - 1.02 MG/DL 11/07/2020 10:08 PM CDT [facility] SODIUM S/P/B 135(L) 136 - 145 MMOL/L 11/07/2020 10:08 PM CDT [facility] POTASSIUM S/P/B 3.2(L) 3.5 - 5.1 MMOL/L 11/07/2020 10:08 PM CDT [facility] CHLORIDE S/P/B 103 100 - 108 MMOL/L 11/07/2020 10:08 PM CDT [facility] CO2 23.8 21 - 32 MMOL/L 11/07/2020 10:08 PM CDT [facility] CALCIUM S/P/B 9.1 8.5 - 10.1 MG/DL 11/07/2020 10:08 PM CDT [facility] BILIRUBIN TOTAL S/P/B 0.4 0.2 - 1.2 MG/DL 11/07/2020 10:08 PM CDT [facility] Comment: THIS ASSAY IS NOT RECOMMENDED FOR PATIENTS UNDERGOING TREATMENT WITH ELTROMBOPAG DUE TO THE POTENTIAL FOR FALSELY ELEVATED RESULTS. TOTAL PROTEIN S/P/B 8.4(H) 6.4 - 8.2 G/DL 11/07/2020 10:08 PM CDT [facility] ALBUMIN S/P/B 3.8 3.4 - 5.0 G/DL 11/07/2020 10:08 PM CDT [facility] AST 14(L) 15 - 37 U/L 11/07/2020 10:08 PM CDT [facility] ALT 16 14 - 55 U/L 11/07/2020 10:08 PM CDT [facility] ALKALINE PHOSPHATASE S/P/B 60 50 - 136 U/L 11/07/2020 10:08 PM T [facility] ANION GAP 8.2 5 - 15 MMOL/L 11/07/2020 10:08 PM T [facility] BUN CREATININE RATIO 10.9 6 - 26 11/07/2020 10:08 PM CDT [facility] A/G RATIO 0.8(L) 1.0 - 2.0 RATIO 11/07/2020 10:08 PM CDT [facility] EGFR NON-AFR. AMER. >90 >90 ML/MIN/1.7 3 M2 11/07/2020 10:08 PM CDT [facility] EGFR AFR. AMER. >90 >90 ML/MIN/1.7 3 M2 11/07/2020 10:08 PM CDT [facility] Comment: NOTE: eGFR is not calculated for patients <18 years of age. This is an estimated GFR (CKD EPI) and should not be used for calculating drug doses. 11/07/2020 9:24 PM CDT [facility] Final Result [facility] [address] [place] [address], [place] [phone] * (ABNORMAL) CBC W/DIFF AUTOMATED (11/07/2020 9:24 PM CDT) WBC 10.7 4.5 - 13.0 x10'3/uL 11/07/2020 9:55 PM CDT [facility] RBC 4.36 4.20 - 5.40 x10'6/uL 11/07/2020 9:55 PM CDT [facility] HGB 12.8 12.0 - 16.0 G/DL 11/07/2020 9:55 PM CDT [facility] HCT 37.7(L) 38.0 - 48.0 % 11/07/2020 9:55 PM CDT [facility] MCV 86.5 81.0 - 99.0 FL 11/07/2020 9:55 PM CDT [facility] MCH 29.4 27.0 - 31.0 PG 11/07/2020 9:55 PM CDT [facility] MCHC 34.0 32.0 - 36.0 G/DL 11/07/2020 9:55 PM CDT [facility] RDW 13.4 11.5 - 14.5 % 11/07/2020 9:55 PM CDT [facility] PLT 314 130 - 400 x10'3/uL 11/07/2020 9:55 PM CDT [facility] MPV 8.8(L) 9.3 - 12.2 FL 11/07/2020 9:55 PM CDT [facility] DIFFERENTIAL TYPE AUTOMATED DIFFERENTIAL 11/07/2020 9:55 PM CDT [facility] NEUTROPHILS % 74.3 % 11/07/2020 9:55 PM CDT [facility] LYMPHOCYTES % 16.9 % 11/07/2020 9:55 PM CDT [facility] MONOCYTES % 6.8 % 11/07/2020 9:55 PM CDT [facility] EOSINOPHILS 0.8 % 11/07/2020 9:55 PM CDT [facility] BASOPHILS 0.5 % 11/07/2020 9:55 PM CDT [facility] IMMATURE GRANS % 0.7 % 11/08/19 9:55 PM CDT [facility] ABS. NEUTROPHILS TOTAL 7.93 1.80 - 8.00 x10'3/uL 11/07/2020 9:55 PM CDT [facility] ABS. LYMPHOCYTES 1.80 1.20 - 5.20 x10'3/uL 11/07/2020 9:55 PM CDT [facility] ABS. MONOCYTES 0.73 0.24 - 0.86 x10'3/uL 11/07/2020 9:55 PM CDT [facility] ABS. EOSINOPHILS 0.09 0.04 - 0.36 x10'3/uL 11/07/2020 9:55 PM CDT [facility] ABS. BASOPHILS 0.05 0.01 - 0.08 x10'3/uL 11/07/2020 9:55 PM CDT [facility] ABS. IMMATURE GRANULOCYTES 0.07 0.00 - 0.49 x10'3/uL 11/07/2020 9:55 PM CDT [facility] 11/07/2020 9:24 PM CDT [facility] Final Result [facility] [address] [place] [address], documented in this encounter Visit Diagnoses Diagnosis Hyperemesis gravidarum ([facility])- Primary Mild hyperemesis gravidarum, unspecified as to episode of care documented in this encounter Administered Medications Inactive Administered Medications - up to 3 most recent administrations Medication Order MAR Action Action Date Dose Rate Site dextrose 5 % lactated ringers infusion at 1,000 mL/hr, Intravenous, Once, 1 dose, On 11/07/20 at 2000 New Bag 11/07/2020 9:39 PM CDT 1000 mL/hr methylPREDNISolone (MEDROL) tablet 16 mg 16 mg, Oral, Once, 1 dose, On Sun11/08/20 at 0030 Given 11/08/2020 12:46 AM CDT 16 mg metoclopramide (REGLAN) injection 10 mg 10 mg, Intravenous, Once, 1 dose, On 11/07/20 at 2000, Administer IV over 1-2 minutes Given 11/07/2020 9:40 PM CDT 10 mg ondansetron (ZOFRAN) injection 4 mg 4 mg, Intravenous, Once, 1 dose, On Sun11/08/20 at 0030, IV push over 2-5 minutes. Given 11/08/2020 12:29 AM CDT 4 mg documented in this encounter Active and Recently Administered Medications Times are shown in CDT. Scheduled Medication Order 11/06/2020 11/07/2020 11/08/2020 dextrose 5 % lactated ringers infusion (COMPLETED) at 1,000 mL/hr, Intravenous, Once, 1 dose, On Sun11/07/20 at 2000 2139 (New Bag - Provider: Kristen Rodriguez RN)2247 (Infusion Stop Time - Provider: Ann Spencer RN) methylPREDNISolone (MEDROL) tablet 16 mg (COMPLETED) 16 mg, Oral, Once, 1 dose, On Sun11/08/20 at 0030 0046 (Given - Provid er: Ann Spencer RN) metoclopramide (REGLAN) injection 10 mg (COMPLETED) 10 mg, Intravenous, Once, 1 dose, On Sun11/07/20 at 2000, Administer IV over 1-2 minutes 2140 (Given - Provider: Kristen Rodriguez RN) ondansetron (ZOFRAN) injection 4 mg (COMPLETED) 4 mg, Intravenous, Once, 1 dose, On Sun11/08/20 at 0030, IV push over 2-5 minutes. 0029 (Given - Provid er: Ann Spencer RN) documented in this encounter Care Teams Practice Nurse Relationship Specialty Start Date End Date None, Provider, PCP - General 11/07/20 documented as of this encounter
--- OUTSIDE RECORDS SUMMARY | 2024-08-05 00:15 | XMS_ITS | Encounter Summary ---
Author Organization [facility] Address [address] [place] [address]. [place], [place] [id number] [place] [address] Care Team Providers Care Manager Labor Relations Name Role Phone Bel Benitez MD Primary Care Provider [phone] Encounter Details Date Type Department Care Team (Latest Contact Info) Description 09/13/2020 Travel Social History Tobacco Use Types Packs/Day [...] COVID-19? 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
--- OUTSIDE RECORDS SUMMARY | 2024-08-05 00:15 | XMS_ITS | Encounter Summary ---
Author Organization [facility] Address [address] [place] [address]. [place], [place] [address] [place] [address] Care Team Providers Care Dredge Operator Supervisor Name Role Phone Bel Benitez MD Primary Care Provider [phone] Encounter Details Date Type Department Care Team (Latest Contact Info) Description 07/21/2020 Travel Social History Tobacco Use Types Packs/Day [...] COVID-19? No / Unsure 07/21/2020 8:13 AM CISO documented as of this encounter Plan of Treatment Not on file documented as of this encounter Visit Diagnoses Not on filedocumented in this encounter Care Teams Dredge Operator Supervisor Relationship Specialty Start Date End Date Bel Benitez MD [address] [facility] [address] [place] [address] PCP - General FAMILY PRACTICE 02/18/19 11/06/20 documented as of this encounter
--- OUTSIDE RECORDS SUMMARY | 2024-08-05 00:15 | XMS_ITS | Encounter Summary ---
Author Organization [facility] Address [address] [place] [address]. [place], [place] [id number] [place] [address] Care Team Providers Care Obgyn Specialist Name Role Phone Bel Benitez MD Primary Care Provider [phone] Encounter Details Date Type Department Care Team (Latest Contact Info) Description 10/07/2020 Travel Social History Tobacco Use Types Packs/Day [...] COVID-19? 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
--- OUTSIDE RECORDS SUMMARY | 2024-08-05 00:15 | XMS_ITS | Encounter Summary ---
Author Organization [facility] Address [address] [place] [address]. [place], [place] [address] [place] [address] Care Team Providers Care Reactor Operator Name Role Phone Leidy Sharif MD Primary Care Provider Unavailable Encounter Details Date Type Department Care Team (Late st Contact Info) Description 11/26/[address] [facility] [address] [place] [address] Patito Murillo APNP Social History Tobacco Use Types Packs/Day Years Used Date Smoking Tobacco: Never Assessed Comments Unknown Sex and Gender Information Value Date Recorded Sex Assigned at Not on file Legal Sex Female 7:05 PM CDT Gender Identity Not on file Sexual Orientation Not on file documented as of this encounter Plan of Treatment Not on file documented as of this encounter Visit Diagnoses Diagnosis Pain of left leg Pain in limb documented in this encounter Care Teams Reactor Operator Relationship Specialty Start Date End Date Leidy Sharif MD PCP - General 11/26/15 documented as of this encounter
--- OUTSIDE RECORDS SUMMARY | 2024-08-05 00:15 | XMS_ITS | Encounter Summary ---
Author Organization [facility] Address [address] [place] [address]. [place], [place] [address] [place] [address] Care Team Providers Care Milk Collector Name Role Phone None, Provider Primary Care Provider Unavaila ble Encounter Details Date Type Department Care Team (Latest Contact Info) Description 11/07/2020 Travel Social History Tobacco Use Types Packs/Day [...] on filedocumented in this encounter Care Teams Milk Collector Relationship Specialty Start Date End Date None, Provider, PCP - General 11/07/20 documented as of this encounter
--- OUTSIDE RECORDS SUMMARY | 2024-08-05 00:15 | XMS_ITS | Encounter Summary ---
Author Organization [facility] Address [address] [place] [address]. [place], [place] [address] [place] [address] Care Team Providers Care Interlocking Installer Name Role Phone Lediy Sharif MD Primary Care Provider Unavailable Encounter Details Date Type Department Care Team (Late st Contact Info) Description 06/23/2017 [place] [address] Leidy Sharif MD Social History Tobacco Use Types Packs/Day Years [...] on filedocumented in this encounter Care Teams Interlocking Installer Relationship Specialty Start Date End Date Leidy Sharif MD PCP - General 11/26/15 documented as of this encounter
--- OUTSIDE RECORDS SUMMARY | 2024-08-05 00:15 | XMS_ITS | Encounter Summary ---
Author Organization [facility] [place] Address [address] [place] [address]. [place], [place] [address] [place] [address] Care Team Providers Care Rubber Extrusion Machine Operator Name Role Phone Bel Benitez MD Primary Care Provider [phone] Encounter Details Date Type Department Care Team (Latest Contact Info) Description 10/07/2020 3:29 PM CAMPAIGN DEVELOPER - 10/07/2020 11:59 PM [facility] Hospital Encounter [facility] [place] [address] Reyes Johnson MD [address] [place] [address] [address] [place], [place] [id number] Discharge Disposition: Home or Self Care (Routine [...] COVID-19? No / Unsure 10/07/2020 3:29 PM CAMPAIGN DEVELOPER documented as of this encounter Plan of Treatment Not on file documented as of this encounter Procedures Procedure Name Priority Date/Time Associated Diagnosis Comments SYPHILIS IGG AB Routine 10/07/2020 3:42 PM CAMPAIGN DEVELOPER Unspecified screening (HHS/HCC) HIV 1 ANTIGEN(S), WITH HIV-1 AND HIV-2 ANTIBODIES Routine 10/07/2020 3:42 PM CAMPAIGN DEVELOPER Unspecified screening (HHS/HCC) RUBELLA IGG Routine 10/07/2020 3:42 PM CAMPAIGN DEVELOPER Unspecified screening (HHS/HCC) HEMOGLOBIN, GLYCOSYLATED Routine 10/07/2020 3:42 PM CAMPAIGN DEVELOPER Unspecified screening ([facility]/HCC) HEPATITIS B SURFACE AG, EIA Routine 10/07/2020 3:42 PM CAMPAIGN DEVELOPER Unspecified screening (HHS/HCC) HC BLOOD TYPING ABO Routine 10/07/2020 3 :42 PM CAMPAIGN DEVELOPER Unspecified screening (HHS/HCC) CBC W/DIFF AUTOMATED Routine 10/07/2020 3:42 PM CAMPAIGN DEVELOPER Unspecified screening ([facility]/HCC) VITAMIN D, 25 OH Routine 10/07/2020 3:42 PM CAMPAIGN DEVELOPER Unspecified screening ([facility]) documented in this encounter Results * HEMOGLOBIN, GLYCOSYLATED (10/07/2020 3:42 PM CAMPAIGN DEVELOPER) HGB A1C 4.8 <5.7 % 10/07/2020 7:38 PM CAMPAIGN DEVELOPER [facility] Comment: ADA GUIDELINES 2010 5.7 TO 6.4% INCREASED RISK OF DIABETES > OR = 6.5% CONSISTENT WITH DIABETES ESTIMATED AVG GLUCOSE 91 mg/dL 10/07/2020 7:38 PM CAMPAIGN DEVELOPER [facility] 10/07/2020 3:42 PM CAMPAIGN DEVELOPER Zo Merchant MD LABORATORY Final Res ult Performing Organization Address City/[facility]/ZIP Co de Phone Number [facility] [address] [place] [address], [place] [phone] * (ABNORMAL) VITAMIN D, 25 OH (10/07/2020 3:42 PM CAMPAIGN DEVELOPER) [facility] VITAMIN D 25 HYDROXY S/P/B 14(L) 30 - 100 NG/ML 10/07/2020 7:15 PM CAMPAIGN DEVELOPER [facility] Comment: ? INTERPRETATION ? DEFICIENT ??<20 ? INSUFFICIENT 20-29 ?SUFFICIENT 30-100 10/07/2020 3:42 PM CAMPAIGN DEVELOPER Zo Merchant MD LABORATORY Final Res ult Performing Organization Address City/[facility] Co de Phone Number [facility] [address] [place] [address], [place] [phone] * HIV 1 ANTIGEN(S), WITH HIV-1 AND HIV-2 ANTIBODIES (10/07/2020 3:42 PM CAMPAIGN DEVELOPER) [facility] HIV 1/2 AB+ HIV1 P24 AG NON-REACTI VE NON-REACTI VE 10/07/2020 5:12 PM CAMPAIGN DEVELOPER [facility] 10/07/2020 3:42 PM CAMPAIGN DEVELOPER Zo Merchant MD LABORATORY Final Res ult [facility] [address] [place] [address], * SYPHILIS IGG AB (RPR) (10/07/2020 3:42 PM CAMPAIGN DEVELOPER) SYPHILIS IGG AB NON-REACTI VE NON-REACTI VE 10/07/2020 7:15 PM CAMPAIGN DEVELOPER [facility] 10/07/2020 3:42 PM CAMPAIGN DEVELOPER Zo Merchant MD LABORATORY Final Res ult [facility] [address] [place] [address], * BLOOD TYPING, ABO AND RH (10/07/2020 3:42 PM CAMPAIGN DEVELOPER) ABO/RH A NEGATIVE 10/07/2020 5:15 PM CAMPAIGN DEVELOPER [facility] 10/07/2020 3:42 PM CAMPAIGN DEVELOPER Zo Merchant MD BLOOD BANK TEST ORDERABLE S Final Result Performing Organization Address City/[facility]/ZIP Co de Phone Number [facility] [address] [place] [address], * RUBELLA IGG (10/07/2020 3:42 PM CAMPAIGN DEVELOPER) RUBELLA IGG AB 72.30 10/07/2020 7:15 PM CAMPAIGN DEVELOPER [facility] Comment: IMMUNITY PRESENT RUBELLA IGG [...] TO ?? RUBELLA VIRUS. 10/07/2020 3:42 PM CAMPAIGN DEVELOPER Zo Merchant MD LABORATORY Final Res ult Performing Organization Address City/[facility]/ZIP Co de Phone Number [facility] [address] [place] [address], [place] [phone] * HEPATITIS B SURFACE AG, EIA (10/07/2020 3:42 PM CAMPAIGN DEVELOPER) Pathologist [facility] HEPATITIS B SURFACE AG NON-REACTI VE NON-REACTI VE 10/07/2020 4:44 PM CAMPAIGN DEVELOPER [facility] 10/07/2020 3:42 PM CAMPAIGN DEVELOPER Zo Merchant MD LABORATORY Final Res ult Performing Organization Address [facility] Co de Phone Number [facility] [address] [place] [address], [place] [phone] * (ABNORMAL) CBC W/DIFF AUTOMATED (10/07/2020 3:42 PM CAMPAIGN DEVELOPER) Pathologist [facility] WBC 10.4 4.5 - 13.0 x10'3/uL 10/07/2020 4:07 PM CAMPAIGN DEVELOPER [facility] RBC 4.12(L) 4.20 - 5.40 x10'6/uL 10/07/2020 4:07 PM CAMPAIGN DEVELOPER [facility] HGB 12.0 12.0 - 16.0 G/DL 10/07/2020 4:07 PM CAMPAIGN DEVELOPER [facility] HCT 35.6(L) 38.0 - 48.0 % 10/07/2020 4:07 PM [facility] MCV 86.4 81.0 - 99.0 FL 10/07/2020 4:07 PM [facility] MCH 29.1 27.0 - 31.0 PG 10/07/2020 4:07 PM [facility] MCHC 33.7 32.0 - 36.0 G/DL 10/07/2020 4:07 PM [facility] RDW 12.9 11.5 - 14.5 % 10/07/2020 4:07 PM [facility] PLT 299 130 - 400 x10'3/uL 10/07/2020 4:07 PM [facility] MPV 9.1(L) 9.3 - 12.2 FL 10/07/2020 4:07 PM [facility] DIFFERENTIAL TYPE AUTOMATED DIFFERENTIAL 10/07/2020 4:07 PM [facility] NEUTROPHILS % 67.8 % 10/07/2020 4:07 PM [facility] LYMPHOCYTES % 21.1 % 10/07/2020 4:07 PM [facility] MONOCYTES % 8.7 % 10/07/2020 4:07 PM [facility] EOSINOPHILS 1.4 % 10/07/2020 4:07 PM [facility] BASOPHILS 0.5 % 10/07/2020 4:07 PM [facility] IMMATURE GRANS % 0.5 % 10/07/19 4:07 PM [facility] ABS. NEUTROPHILS TOTAL 7.04 1.80 - 8.00 x10'3/uL 10/07/2020 4:07 PM [facility] ABS. LYMPHOCYTES 2.19 1.20 - 5.20 x10'3/uL 10/07/2020 4:07 PM CAMPAIGN DEVELOPER [facility] ABS. MONOCYTES 0.90(H) 0.24 - 0.86 x10'3/uL 10/07/2020 4:07 PM CAMPAIGN DEVELOPER [facility] ABS. EOSINOPHILS 0.14 0.04 - 0.36 x10'3/uL 10/07/2020 4:07 PM CAMPAIGN DEVELOPER [facility] ABS. BASOPHILS 0.05 0.01 - 0.08 x10'3/uL 10/07/2020 4:07 PM CAMPAIGN DEVELOPER [facility] ABS. IMMATURE GRANULOCYTES 0.05 0.00 - 0.49 x10'3/uL 10/07/2020 4:07 PM CAMPAIGN DEVELOPER [facility] 10/07/2020 3:42 PM CAMPAIGN DEVELOPER us Zo Merchant MD LABORATORY Final Res ult [facility] [address] [facility] [place] [address], documented in this encounter Visit Diagnoses Diagnosis Unspecified screening (HHS/HCC) Unspecified screening documented in this encounter Care Teams Rubber Extrusion Machine Operator Relationship Specialty Start Date End Date Bel Benitez MD [address] [facility] [place] [address] PCP - General FAMILY PRACTICE 02/18/19 11/06/20 documented as of this encounter
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
--- OUTSIDE RECORDS SUMMARY | 2024-08-05 00:20 | XMS_ITS | Encounter Summary ---
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 (HCC) Other fatigue Other iron deficiency anemia Janeth Ronquillo MD [address] [facility] [place] [phone] [place] [address] Phone: tel: fax: [facility] [address] [place] [address] [place] [address] Phone: tel: fax: Referral ID Status Reason Start Date Expiration Date V isits Requested Visits Authorized [id number] Closed Specialty Services Required 02/22/2023 03/23/2024 1 1 Encounter Details Date Type Department Care Team (Late st Contact Info) Description 03/01/2023 3:00 PM CDT Office Visit [facility]psy [address] [place] [address] Albert Krueger MD [address] [place] [address] Seizure-like activity (HCC) (Primary Dx); Psychiatric pseudoseizure Social History Tobacco Use Types Packs/Day Years Used Date Smoking Tobacco: Never Smokeless Tobacco: Never Tobacco Cessation:Counseling Given: Not Answered Alcohol Use Standard Drinks/Week Comments Yes 0 (1 standard drink = 0.6 oz pur e alcohol) occasional PHQ-2 Answer Date Recorded PHQ-2 Total Score (If total score is 3 or more points, staff should administer the PHQ-9) 1 07/12/2021 Comments No Sex and Gender Information Value Date Recorded Sex Assigned at Not on file Legal Sex Female 6:22 AM HEAD OF ACQUISITIONS Gender Identity Female 03/11/2020 1:47 PM CDT Sexual Orientation Straight 03/11/2020 1: 47 PM CDT 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 on file documented as of this encounter Last Filed Vital Signs Vital Sign Reading Time Taken Comments Blood Pressure 114/77 03/01/2023 2:50 PM CDT Pulse 82 03/01/2023 2:50 PM CDT Temperature 37.2 ??C (98.9 ??F) 03/01/2023 2:50 PM CD T Respiratory Rate - - Oxygen Saturation 99% 03/01/2023 2:50 PM CDT Inhaled Oxygen Concentration - - Weight 50.6 kg (111 lb 8 oz) 03/01/2023 2:50 PM CDT Height 160 cm (5' 3 ) 03/01/2023 2:50 PM CDT Body Mass Index 19.75 03/01/2023 2:50 PM CDT documented in this encounter Patient Instructions * Patient Instructions* Albert Krueger MD - 03/01/2023 3:00 PM CDT - lamotrigine titration as follows: 25mg QHS for 14 days, then 25mg BID for 14 days, then 50 mg BID for 7 days, then 75mg BID for 7 days, then 100mg BID thereafter - will take pictures and reach out to the office if she develops a rash - folic acid 1mg daily - seizure precautions, no driving for 6 months from last event - RTC 2 months (18-19 weeks) - establish care with a clinical therapist for pursuit of cognitive behavioral therapy for 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 Ruben Kendrick ([address] [address]) - [phone] [facility] ([address] [address]) - [phone] [facility] Behavioral Health Intake Department - [phone] [facility] Behavioral Health Intake Department is professionally staffed and offers free, confidential evaluations for anyone needing assistance with a psychiatric, behavioral or addictive disorder. Evaluations, as well as referrals to physicians or community resources, are available 24 hoursa day, 7 days a week. [facility] ([address] [place] [address]) - [phone] (www.SLBMI.eSentire) [facility] ([address] [place] [address]) - [phone] [facility] ([facility]) - [phone] [facility] ([facility]) - [phone] [facility] ([facility]) - [phone] [facility] (women/domestic violence) - [phone] [facility] (men/domestic violence) - [phone] [facility] - [phone] [facility] - [phone] [facility] - [phone] [facility] - [phone] [facility] - [phone], option 2 [facility] - [phone] [facility] - [phone] [facility] - [phone] [facility] - [phone] Clinical Therapist Resources Online: 1) https://www.psychologytoday.eSentire 2) https://www.Casinity 3) https://www.Whiteyboard 4) https://www.betterSelexagen Therapeuticsp.eSentire Seizure precautions: -- It is [place] state law that a person cannot drive for 6 months following any spell with alteration in consciousness. -- Avoid activities in which you or someone else could be seriously hurt if you were to have an alteration in consciousness while doing the activity. For example, avoid cooking over an open flame, holding a baby while standing, climbing ladders, taking baths unattended (choose showers instead), or any other activity in which a sudden alteration in consciousness can lead to serious harm. -- It is important to not miss any doses of your medication. Make sure to go to bed and wake up on a regular schedule; poor sleep can increase the risk of having another seizure. Lamictal (Lamotrigine) Warning All products: Severe skin reactions may happen with this drug. These include Yabrra-Corby syndrome (SJS), toxic epidermal necrolysis (TEN), and other serious reactions. Sometimes, body organs may also be affected. These reactions can be deadly. Get medical help right away if you have signs like red, swollen, blistered, or peeling skin; red or irritated eyes; sores in your mouth, throat, nose, eyes, genitals, or any areas of skin; fever; chills; body aches; shortness of breath; or swollen glands. The chance of a skin reaction is raised in children between 2 and 17 years old. It may also be raised if you take valproic acid or divalproex sodium with this drug, if you start taking this drug at too high of a dose, or if your dose is raised too fast. Skin reactions have also happened without anyof these. Talk with your doctor. Most cases of skin reactions have happened within 2 to 8 weeks of starting this drug, but some showup after longer treatment like 6 months. Talk with the doctor. Extended-release tablets: This drug is not approved for use in children younger than 13 years old. Talk with the doctor. What is this drug used for? It is used to help control certain kinds of seizures. It is used to treat bipolar problems. It may be given to you for other reasons. Talk with the doctor. What do I need to tell my doctor BEFORE I take this drug? If you are allergic to this drug; any part of this drug; or any other drugs, foods, or substances. Tell your doctor about the allergy and what signs you had. If you are taking dofetilide. This is not a list of all drugs or health problems that interact with this drug. Tell your doctor and pharmacist about all of your drugs (prescription or OTC, natural products, vitamins) and health problems. You must check to make sure that it is safe for you to take this drug with all of your drugs and health problems. Do not start, stop, or change the dose of any drug withoutchecking with your doctor. What are some things I need to know or do while I take this drug? For all uses of this drug: Tell all of your health care providers that you take this drug. This includes your doctors, nurses,pharmacists, and dentists. Avoid driving and doing other tasks or actions that call for you to be alert until you see how thisdrug affects you. It may take several weeks to see the full effects. Have blood work checked as you have been told by the doctor. Talk with the doctor. This drug may affect certain lab tests. Tell all of your health care providers and lab workers thatyou take this drug. Talk with your doctor before you use alcohol, marijuana or other forms of cannabis, or prescriptionor OTC drugs that may slow your actions. Like other drugs that may be used for seizures, this drug may rarely raise the risk of suicidal thoughts or actions. The risk may be higher in people who have had suicidal thoughts or actions in the past. Call the doctor right away about any new or worse signs like depression; feeling nervous, restless, or grouchy; panic attacks; or other changes in mood or behavior. Call the doctor right away ifany suicidal thoughts or actions occur. This drug may raise the chance of a very bad brain problem called aseptic meningitis. Call your doctor right away if you have a headache, fever, chills, very upset stomach or throwing up, stiff neck,rash, bright lights bother your eyes, feeling sleepy, or feeling confused. Some drugs may look the same as this drug or may have names that sound like this drug. Always checkto make sure you have the right product. If you see any change in the way this drug looks like shape, color, size, or wording, check with your pharmacist. If you have an abnormal heartbeat, heart failure, or other heart problems, talk with your doctor. Abnormal heartbeats can happen in people with some types of heart problems, which can lead to sudden . If the patient is a child, use this drug with care. The risk of some side effects may be higher in children. control pills and other hormone-based control may change how much of this drug is in your body. Talk to your doctor before you start or stop any hormone-based control. The chance ofside effects may be raised when taking control pills during the week that the pills are not active. Talk with your doctor. control pills and other hormone-based control may not work as well to prevent . Use some other kind of control also like a condom when taking this drug. Tell your doctor if you are , plan on getting , or are breast- feeding. You will need to talk about the benefits and risks to you and the baby. For seizures: If seizures are different or worse after starting this drug, talk with the doctor. What are some side effects that I need to call my doctor about right away? WARNING/CAUTION: Even though it may be rare, some people may have very bad and sometimes deadly side effects when taking a drug. Tell your doctor or get medical help right away if you have any of thefollowing signs or symptoms that may be related to a very bad side effect: Signs of an allergic reaction, like rash; hives; itching; red, swollen, blistered, or peeling skin with or without fever; wheezing; tightness in the chest or throat; trouble breathing, swallowing, ortalking; unusual hoarseness; or swelling of the mouth, face, lips, tongue, or throat. Signs of kidney problems like unable to pass urine, change in how much urine is passed, blood in the urine, or a big weight gain. Signs of liver problems like dark urine, feeling tired, not hungry, upset stomach or stomach pain, light-colored stools, throwing up, or yellow skin or eyes. Shortness of breath, a big weight gain, or swelling in the arms or legs. Very bad muscle pain or weakness. Very bad joint pain or swelling. Change in eyesight. Chest pain or pressure. Fast, slow, or abnormal heartbeat. Very bad dizziness or passing out. Change in balance. Not able to control eye movements. Flu-like signs. Painful periods. Period (menstrual) changes. These include spotting or bleeding between cycles. Low blood cell counts have happened with this drug. If blood cell counts get very low, this can lead to bleeding problems, infections, or anemia. Call your doctor right away if you have signs of infection like fever, chills, or sore throat; any unexplained bruising or bleeding; or if you feel very tired or weak. A life-threatening immune system problem called hemophagocytic lymphohistiocytosis (HLH) has happened with this drug. Call your doctor right away if you have fever, swollen gland, rash, seizures, feeling confused or not alert, change in balance, or trouble walking that is new or worse. What are some other side effects of this drug? All drugs may cause side effects. However, many people have no side effects or only have minor sideeffects. Call your doctor or get medical help if any of these side effects or any other side effects bother you or do not go away: Feeling dizzy, sleepy, tired, or weak. Constipation, diarrhea, stomach pain, upset stomach, throwing up, or feeling less hungry. Shakiness. Trouble sleeping. Nose or throat irritation. Weight loss. Dry mouth. Back pain. These are not all of the side effects that may occur. If you have questions about side effects, call your doctor. Call your doctor for medical advice about side effects. You may report side effects to your national health agency. How is this drug best taken? Use this drug as ordered by your doctor. Read all information given to you. Follow all instructionsclosely. All products: Take with or without food. Keep taking this drug as you have been told by your doctor or other health care provider, even if you feel well. Do not change the dose or stop this drug. This could cause seizures. Talk with your doctor. Do not stop taking this drug all of a sudden without calling your doctor. You may have a greater risk of side effects. If you need to stop this drug, you will want to slowly stop it as ordered by your doctor. If you stop taking this drug, talk with your doctor. You may need to be restarted at a lower dose and raise the dose slowly. All tablet products: Swallow whole. Do not chew, break, or crush. If you have trouble swallowing, talk with your doctor. Tablets for suspension: It may be swallowed whole, chewed, or mixed in water or fruit juice. If chewed, drink a little water or fruit juice to help swallow. You may break up tablet by adding liquid to cover tablet in a glass or spoon. Wait at least 1 minute until fully broken up, then mix and drink. Oral-disintegrating tablet: Place on your tongue and let it dissolve. Water is not needed. Do not swallow it whole. Do not chew, break, or crush it. What do I do if I miss a dose? Take a missed dose as soon as you think about it. If it is close to the time for your next dose, skip the missed dose and go back to your normal time. Do not take 2 doses at the same time or extra doses. How do I store and/or throw out this drug? Store at room temperature protected from light. Store in a dry place. Do not store in a bathroom. Keep all drugs in a safe place. Keep all drugs out of the reach of children and pets. Throw away unused or drugs. Do not flush down a toilet or pour down a drain unless you are told to do so. Check with your pharmacist if you have questions about the best way to throw out drugs. There may be drug take-back programs in your area. General drug facts If your symptoms or health problems do not get better or if they become worse, call your doctor. Do not share your drugs with others and do not take anyone else's drugs. Some drugs may have another patient information leaflet. If you have any questions about this drug,please talk with your doctor, nurse, pharmacist, or other health care provider. If you think there has been an overdose, call your poison control center or get medical care right away. Be ready to tell or show what was taken, how much, and when it happened. documented in this encounter Ordered Prescriptions Prescription Sig Dispense Quantity Refills Last Filled Start Date End Date folic acid (FOLVITE) 1 mg tablet Take 1 tablet (1 mg total) by mouth daily 30 tablet 03/01/2023 4 lamoTRIgine (LaMICtal) 25 mg tablet Take 1 tab nightly for 14 days, then 1 tab twice daily for 14 days, then 2 tabs twice daily for 7 days, then 3 tabs twice daily for 7 days, then 4 tabs twice daily 240 tablet 03/01/2023 3 documented in this encounter Progress Notes * Albert Krueger MD - 03/01/2023 3:00 PM CDT Name: Lorri Ernandez Date of : 2000 PCP: Unknown, Notinfile Date: 03/01/2023 Provider: Albert Krueger MD HISTORY OF PRESENT ILLNESS Lorri Ernandez is a 22 y.o. right-handed female who is 10 weeks with twins (notes not available) who is self-referred for evaluation of events concerning for seizures. Patient is unaccompanied at this encounter She previously followed with Dr. Ronquillo at [facility] with whom she established care in [...] She continued to follow with Dr. Ronquillo and at subsequent encounters described her seizures as an ice pick on the left side of her head, like amigraine, lasting 30-60 seconds. Her leg shakes followed by her hands shaking.(2) These were associated with stress more than sickness, and if something really weighed on her it would trigger an event. For example, she moved from [place] to [place]. She was encouraged to re-start oxcarbazepine, which was gradually titrated over time to 450mg twicedaily. At that dose, she noted occasionally a little tightness on the christian lasting 30 seconds, which she characterized as [...] on hydroxyzine as needed. No new illnesses. Lorri is sleeping ok. She is not using [...] 300 BID of Trileptal... She had events of April 2021, a total of 13 convulsions (3) and was admitted for three [facility] at [facility]. She did not have urinary incontinence or [...] pen with her so she went to [facility] She received 1 shot of epinephrine while there. EMS was called. There was no redness or rashes. Then shebegan to have uncontrollable shaking. EMS noted patient was awake and talking during these shaking spells. Patient reported feeling anxious. She estimated having 30 events in a row. She was taken to [facility] and evaluated. 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 No [...] Mother Seizures Mother MEDICATIONS Current Outpatient Medications: calcium carb-D3-mag [id number], 3 tablet, oral, Daily ondansetron, 4 mg, oral, Q6H [id number]-ilakb acid, Take by mouth daily ALLERGIES Heavin is allergic to depo-provera contraceptive, penicillin v, wasp venom, medroxyprogest-estradiol cyp, and ceftriaxone. OBJECTIVE Vital Signs Vitals BP 114/77 (BP Location: Right arm, Patient Position: Sitting) Pulse 82 Temp 37.2 ??C (98.9 ??F) (Temporal) Ht 160 cm (5' 3 ) Wt 50.6 kg (111 lb 8 oz) SpO2 99% BMI 19.75 kg/m?? Physical Exam General: The patient appeared [...] and place. Able to spell world backwards on second attempt. Followed simple midline and appendicular commands. Followed 2-step commands. Naming and repetition intact. Recalls 3/3 objects at 5 minutes. Cranial Nerves: Pupils equal, regular, and reactive [...] The patient demonstrated normal station and emmanuel. Reflexes: Biceps Brachioradialis Triceps Patellar Achilles Left 3+ 3+ 3+ 3+ 3+ Right 3+ 3+ 3+ 3+ 3+ Ramírez sign negative. Labs: Lab Results Component Value Date WBC 11.2 (H) 10/20/2022 HGB 12.2 10/20/2022 HCT 36.7 10/20/2022 MCV 77.9 (L) 10/20/2022 LABPLAT 339 10/20/2022 Lab Results Component Value Date GLUCOSE 93 10/20/2022 CALCIUM 9.0 10/20/2022 SODIUM 137 10/20/2022 POTASSIUM 3.7 10/20/2022 CO2 22 10/20/2022 CHLORIDE 103 10/20/2022 BUNSER 15 10/20/2022 CREATININE 0.60 10/20/2022 Lab Results Component Value Date ALT 13 10/20/2022 AST 23 10/20/2022 ALKPHOS 64 10/20/2022 BILITOT 0.2 10/20/2022 Imaging/Studies: Routine EEG [facility] 10/2015: Interpretation: This awake and asleep EEG is normal for the patient's age. The patient had multiple clinical events including a period of nonresponsiveness, jerking in the sleep, which did not represent seizure activity. MRI brain [facility] 10/2015: IMPRESSION: No findings to explain [...] have risk factors for psychogenic non-epileptic events. Suspicion for a diagnosis of epilepsy is low, but given that comorbid PNEE and epilepsy cannot be formally excluded and substantive evaluation cannot be pursued in the setting of ongoing , we will choose to initiate lamotrigine to reduce risk of seizures. 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 This includes time spent prior to the visit and after the visit in direct care of the patient. This time does not include time spent in any separately reportable services. What is the patient's current mean epileptic seizure frequency? Uncertain documented in this encounter Plan of Treatment Not on file documented as of this encounter Visit Diagnoses Diagnosis Seizure-like activity (HCC)- Primary Psychiatric pseudoseizure Conversion disorder documented in this encounter Discontinued Medications Medication Sig Discontinue Reason Start Date End Da te DULoxetine DR (CYMBALTA) 30 mg capsule Take 60 mg by mouth daily 03/01/[address] (CYMBALTA) 60 mg capsule 10/15/2021 03/01/2023 hydrOXYzine (ATARAX) 25 mg tablet 10/15/2021 03/01/2023 OXcarbazepine (TRILEPTAL) 300 mg tablet One and a half tablets PO BID 12/28/2021 03/01/[address] (PROTONIX) 20 mg EC tabletIndications:Treatm ent of Non-Bleeding Gastric Disorder Take 2 tablets (40 mg total) by mouth daily 10/20/2022 03/01/2023 documented as of this encounter Historical Medications * This list may reflect changes made after this encounter. calcium carb/D3/magnesium /zinc (calcium carb-D3-mag [id number]) [id number] hl-aujs-fe-mg tablet Take 3 tablets by mouth daily 09/21/2023 [id number] acid 29 mg iron- 1 mg tablet,chewable Take 1 tablet by mouth daily 09/21/2023 added in this encounter Orders Outpatient Referral Count Last Ordered Date Fir st Ordered Date AMB REFERRAL TO NEUROLOGY 1 03/01/2023 documented in this encounter Care Teams Lang Interpreter Relationship Specialty Start Date End Date Unknown, Notinfile PCP - General 10/20/22 Unknown, Notinfile 07/12/21 documented as of this encounter
--- OUTSIDE RECORDS SUMMARY | 2024-08-05 00:20 | XMS_ITS | Encounter Summary ---
Author Organization Formerly [facility] Address [address] [place] [address] Care Team Providers Care Paper Gluing Operator Name Role Phone Unknown, Notinfile Unavailable Unavailable Unknown, Notinfile Primary Care Provider Unavail able Reason for Visit * Neurology (Routine) - Closed Specialty Diagnoses / Procedures Referred By Contac t Referred To Contact Diagnoses Seizure-like activity (HCC) Procedures Ambulatory EEG -[facility] Ambulatory EEG -[facility] (All Locations) Albert Krueger MD 1 [facility] [address] [place] [address] Phone: tel: fax: [address] [phone] Referral ID Status Reason Start Date Expiration Date Visits Re quested Visits Authorized [id number] Closed 10/26/2023 11/24/2024 1 1 Encounter Details Date Type Department Care Team (Latest Contact Info) Description 11/30/2023 3:41 PM CDT - 11/30/2023 11:59 PM CDT Hospital Encounter [facility] Neurodiagnostics [address] [place] [phone] Donald Giron Discharge Disposition: Discharge to home or self care Social History Tobacco Use Types Packs/Day Years Used Date Smoking Tobacco: Never Smokeless Tobacco: Never Alcohol Use Standard Drinks/Week Comments Yes 0 [...] often do you attend chur ch or worship services? More than 4 times per year 03/26/2023 Do you belong to any clubs o r organizations such as orthodoxy groups, unions, fraternal or athletic groups, or school groups? No 03/26/2023 How often do you attend meet ings of the clubs or organizations you belong to? Never 03/26/2023 Are you , , di vorced, , never , or living with a partner? 03/26/2023 AUDIT-C Answer Date Recorded Q1: How often do you have a drink containing alc ohol? Monthly or less 11/06/2023 Q2: How many drinks containi ng alcohol do you have on a typical day when you are drinking? 1 or 2 11/06/2023 Q3: How often do you have si x or more drinks on one occasion? Never 11/06/2023 Overall Financial Resource Strain (CARDIA) Answe r [...] place to sleep or slept in a half-way (including now)? No 03/26/2023 Personal Safety Answer Date Recorded Have you ever been in or are you currently in a harmful physical or emotional relationship or is someone making you feel afraid or unsafe? 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 on file documented as of this encounter Medications at Time of Discharge levETIRAcetam (KEPPRA) 500 mg tablet Take 1 tablet (500 mg total) by mouth 2 (two) times a day 60 tablet 2 11/06/2023 [id number]-[id number] acid 29 mg iron- 1 mg tablet,chewable Take 1 tablet by mouth daily 09/21/2023 documented as of this encounter Discharge Disposition Disposition Code Departure Means Destination Discharge to home or self care documented in this encounter Plan of Treatment Not on file documented as of this encounter Procedures Procedure Name Priority Date/Time Associated Diagnosis Comments AMBULATORY EEG Routine 12/01/2023 3:43 PM CDT Seizure-like activity (HCC) documented in this encounter Results * Ambulatory EEG -[facility] (12/01/2023 3:43 PM CDT) Anatomical Region Laterality Modality EEG Narrative 12/01/2023 3:43 PM CDT Ambulatory EEG Report Patient Name: Lorri Ernandez [facility] Medical Record Number (MRN): [id number] [facility] Record: [id number] Date of (): 2000 EEG Date: 11/29/2023 Ordering Provider: Albert Krueger MD CC: Unknown, Notinfile Start Time: 11/29/2023 3:33:51 PM ? End Time: 11/30/2023 3:48:26 PM Introduction: Ms. Ernandez is a 23 y.o. female with a history of chest pain, palpitations, and syncope, presenting with seizure-like activity. EEG was performed to evaluate for seizures. This is a 24 channel EEG recording acquired on a [employer] digital ambulatory EEG acquisition system. Scalp electrodes were placed with collodion according to the international 10-20 System. The analog EEG was filtered from 1-70 Hz and digitally sampled at 200 Hz. The record was then reformatted for review in bipolar and referential montages. A patient diary and push-button event system was utilized to record patient events as needed. EEG Description: The background was continuous, fairly organized and consisted of a well formed/sustained 9-10 Hz PDR. During drowsiness/stage 1 sleep, identified by ocular signs and alpha attenuation, there was intermittent, diffuse, asynchronous theta activity admixed with 2-4 Hz polymorphic frontotemporal delta activity. Well-formed stage 2 and 3 sleep structures were appreciated. Hyperventilation and photic strobe stimulation were not performed. There were no focal, lateralized or epileptiform abnormalities. No events were reported by the patient. Interpretation: This is a normal awake and stage I, ??II and III sleep ambulatory EEG. There were no seizures or epileptiform discharges No events were reported by the patient. By signing this report, the attending Electroencephalographer certifies that he/she personally reviewed the electrodiagnostics study and has edited this report to fully conform with his/her intent. Signing Attending: Ankush Westfall MD Albert Krueger MD NEUROLOGY ORDERABLES Fin al Result documented in this encounter Visit Diagnoses Not on filedocumented in this encounter Care Teams Paper Gluing Operator Relationship Specialty Start Date End Date Unknown, Notinfile PCP - General 10/20/22 Unknown, Notinfile 07/12/21 documented as of this encounter
--- OUTSIDE RECORDS SUMMARY | 2024-08-05 00:20 | XMS_ITS | Encounter Summary ---
Author Organization [facility] Address [address] [facility] [place] [address] Care Team Providers Care Gm Mobile Name Role Phone Unknown, Notinfile Unavailable Unavailable Unknown, Notinfile Primary Care Provider Unavail able Encounter Details Date Type Department Care Team (Latest Contact Info) Description 12/13/2023 Telephone Neurology Aiden Joshi MD [address] [place] [address] Social History Tobacco Use Types Packs/Day Years [...] often do you attend chur ch or zoroastrianism services? More than 4 times per year 03/26/2023 Do you belong to any clubs o r organizations such as gnosticism groups, unions, fraternal or athletic groups, or [...] place to sleep or slept in a long-term (including now)? No 03/26/2023 Personal Safety Answer Date Recorded Have you ever been in or are you currently in a harmful physical or emotional relationship or is someone making you feel afraid or unsafe? 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 Unable to reachpatient, left voicemail with instructions to call clinic when able. documented in this encounter Plan of Treatment Not on file documented as of this encounter Visit Diagnoses Not on filedocumented in this encounter Care Teams Gm Mobile Relationship Specialty Start Date End Date Unknown, Notinfile PCP - General 10/20/22 Unknown, Notinfile 07/12/21 documented as of this encounter
--- OUTSIDE RECORDS SUMMARY | 2024-08-05 00:20 | XMS_ITS | Clinical Summary ---
Author Organization [facility] Address [address] [place] [address] Phone Care Team Providers Care Mushroom Farmer Name Role Phone Unknown, Notinfile Unavailable Unavailable Unknown, Notinfile Primary Care Provider Unavail able Allergies Active Allergy Reactions Criticality Noted Date Comments Ceftriaxone Dizziness,Other (See comments) Low 11/07/2020 Dizziness/Light Headed numbness Depo-Provera Contraceptive Anaphylaxis High 12/23/2021 Throat closes Medroxyprogest-Estradio l Cyp Unknown 09/05/2021 Penicillin V Anaphylaxis High 07/21/2020 Wasp Venom Anaphylaxis High 07/21/2020 Medications [id number]-seku-uokdy acid 29 mg iron- 1 mg tablet,chewable Take 1 tablet by mouth daily 09/21/2023 Active propranoloL (INDERAL) 10 mg tablet Take 1 tablet (10 mg total) by mouth every 8 (eight) hours 09/21/2023 Active levETIRAcetam (KEPPRA) 500 mg tablet Take 1 tablet (500 mg total) by mouth 2 (two) times a day 60 tablet 2 11/06/2023 Active Active Problems Problem Noted Date Diagnosed Date Hyperemesis gravidarum 03/26/2023 Palpitations 03/26/2023 Sinus tachycardia 03/26/2023 Hyperthyroidism 03/26/2023 SIRS (systemic inflammatory response syndrome) 0 03/26/2023 Hyponatremia 03/26/2023 Seizure-like activity 03/01/2023 Chronic fatigue 12/28/2021 Iron deficiency anemia 12/28/2021 Allergic sinusitis 08/06/2020 Concussion 08/06/2020 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 03/12/2020 Assessment & Plan (07/13/2021 8:50 AM HEALTH SANITARIAN): Follows with neurology, reviewed notes Continue trileptal Major depression in remission 03/12/2020 Assessment & Plan (07/12/2021 3:14 PM HEALTH SANITARIAN): Stable Continue cymbalta PTSD (post-traumatic stress disorder) 03/12/2020 Immunizations Name Administration Dates Next Due Influenza, Quadrivalent, Spl it, Preservative Free, Intramuscular 05/14/2021 Tdap 02/16/2021 Surgical History Surgery Date Site/Laterality Comments STRABISMUS SURGERY Bilateral Medical History Medical History Date Comments Anemia Seizures (HCC) Anxiety Depression Heart murmur Jaundice Migraines Allergic rhinitis Urinary tract infection Seizure-like activity (HCC) 03/01/2023 Family History Medical History Relation Name Comments Autism spectrum disorder Brother Mental illness Brother Hypertension Father Diabetes Maternal Grandfather Diabetes Maternal Grandmother Arthritis Mother Mental illness Mother Seizures Mother Hearing loss Paternal Grandfather Hearing loss Paternal Grandmother Relation Name Status Comments Brother Alive Father Maternal Grandfather Alive Maternal Grandmother Alive Mother Paternal Grandfather Alive Paternal Grandmother Alive Social History Tobacco Use Types Packs/Day Years [...] week 03/26/2023 How often do you attend [facility] or gnosticism services? More than 4 times per year 03/26/2023 Do you belong to any clubs o r organizations such as scientologist groups, unions, fraternal or athletic groups, or [...] place to sleep or slept in a long term (including now)? 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 on file Obstetrics History Para Term AB IAB SAB Ectopic Multiple Livin g Live Births 1 Date Outcome GA Total Labor Labor/2nd/3rd Weight Sex Type Anes PTL Susie A1 A5 Name Clin Last Filed Vital Signs Vital Sign Reading Time Taken Comments Blood Pressure 126/67 11/06/2023 1:20 PM CDT Pulse 90 11/06/2023 1:20 PM CDT Temperature 36.4 ??C (97.6 ??F) 11/06/2023 1:20 PM CD T Respiratory Rate 14 11/06/2023 1:20 PM CDT Oxygen Saturation 97% 11/06/2023 1:20 PM CDT ra Inhaled Oxygen Concentration - - Weight 54.7 kg (120 lb 9.6 oz) 11/06/2023 1:20 P M CDT Height 160 cm (5' 3 ) 11/06/2023 1:20 PM CDT Body Mass Index 21.36 11/06/2023 1:20 PM CDT Plan of Treatment Health Maintenance Due Date Last Done Comments Cervical Cancer Screening 2000 Hepatitis C Screening 2000 Varicella Vaccines (1 of 2 - 13+ 2-dose series) 2013 HPV Vaccines (1 - 3-dose series) 2015 Meningococcal B Vaccine (1 o f 2 - Patient Seeks Protection) 2016 Hepatitis B Screening 2018 Regular Well Visit/Exam 18-64 2018 Chlamydia and Gonorrhea (GC/CT) Screening 06/23/2021 06/23/2020, 06/23/2020 Depression Screening 07/12/2022 07/12/2021 Covid-19 Vaccine (2 - 2023-2 5 season) 2024 05/30/2021 Influenza Vaccine (#1) 2024 05/14/2021 DTaP/Tdap/Td Vaccine (2 - Td or Tdap) 02/16/2031 02/16/2021 Pneumococcal vaccine <65 Aged Out No longer eligible based on patient's age to complete this topic Procedures Procedure Name Priority Date/Time Associated Diagnosis Comments N. GONORRHOEAE/C. TRACHOMATIS AMPLIFICATION TEST Routine 06/23/2020 5:50 AM HEALTH SANITARIAN from Last 3 Months or Most Recently Relevant to Health Maintenance Results * N. gonorrhoeae/C. trachomatis amplification test (06/23/2020 5:50 AM HEALTH SANITARIAN) C. trachomatis RNA TNP [facility] N. gonorrhoeae RNA TNP [facility] Chlamydia/GC Source URINE [facility] Comment: This assay detects Chlamydia trachomatis and Neisseria gonorrhoeae by nucleic acid amplification testing (NAAT). Disclaimer: This Test is not FDA approved in females less than 14 years of age and in males less than 17 years of age. All positive CT/NG results on non-FDA approved pediatric age group patients have been confirmed positive by repeat testing. 06/23/2020 5:50 AM HEALTH SANITARIAN 06/23/2020 7:05 AM HEALTH SANITARIAN Narrative [facility] - 06/23/2020 7:07 AM HEALTH SANITARIAN Urine collection method First catch lessthan 50ml Collected By ok Urine Resulting Agency Comment ER Blanca Casey DO LAB MICROBIOLOGY - GENERAL ORDE SRINIVASA Final Result [address] [phone] from Last 3 Months or Most Recently Relevant to Health Maintenance Insurance [facility] IDPA IDPA Advance Directives For more information, please contact: [phone] * Full Code (Latest Code Status on File) Date Activated Date Inactivated Comments 03/26/2023 3:25 AM 03/27/2023 5:51 PM Care Teams Mushroom Farmer Relationship Specialty Start Date End Date Unknown, Notinfile PCP - General 10/20/22 Unknown, Notinfile 07/12/21
--- OUTSIDE RECORDS SUMMARY | 2024-08-05 00:20 | XMS_ITS | Encounter Summary ---
Author Organization [facility] Address [address] [place] [address] Care Team Providers Care Wood Room Hand Name Role Phone Unknown, Notinfile Unavailable Unavailable Unknown, Notinfile Primary Care Provider Unavail able Reason for Referral * Neurology (Routine) - Closed Specialty Diagnoses / Procedures Referred By Contac t Referred To Contact Diagnoses Seizure-like activity (HCC) Procedures Ambulatory EEG -[facility] Ambulatory EEG [facility] (All Locations) Albert Krueger MD [address] [address] Phone: tel: fax: [address] [phone] Referral ID Status Reason Start Date Expiration Date Visits Re quested Visits Authorized [id number] Closed 10/26/2023 11/24/2024 1 1 Reason for Visit * Neurology (Routine) - Closed Specialty Diagnoses / Procedures Referred By Contac t Referred To Contact Diagnoses Seizure-like activity (HCC) Procedures Ambulatory EEG -[facility] Ambulatory EEG -[facility] (All Locations) Albert Krueger MD [address] [address] Phone: tel: fax: [facility] [address] [place] [phone] Referral ID Status Reason Start Date Expiration Date Visits Re quested Visits Authorized [id number] Closed 10/26/2023 11/24/2024 1 1 Encounter Details Date Type Department Care Team (Latest Contact Info) Description 11/29/2023 2:13 PM CDT - 11/29/2023 11:59 PM CDT Hospital Encounter [facility] Neurodiagnostics [address] [place] [phone] Umer Aguilar [place] Seizure-like activity (HCC) Discharge Disposition: Discharge to home or self [...] 03/26/2023 How often do you attend chur or sabianist services? More than 4 times per year 03/26/2023 Do you belong to any clubs o r organizations such as baptism groups, unions, fraternal or athletic groups, or [...] place to sleep or slept in a fdc (including now)? No 03/26/2023 Personal Safety Answer Date Recorded Have you ever been in or are you currently in a harmful physical or emotional relationship or is someone making you feel afraid or unsafe? 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 Gender Identity Female 03/11/2020 1:47 PM CDT [...] times a day 60 tablet 2 11/06/2023 yl866-kxfr-fooss acid 29 mg iron- 1 mg tablet,chewable [...] in this encounter Results * Ambulatory EEG -[facility] (12/01/2023 3:43 PM CDT) Anatomical Region Laterality Modality EEG Narrative 12/01/2023 3:43 PM CDT Ambulatory EEG Report Patient Name: Lorri Ernandez [facility] Medical Record Number (MRN): [id number] [facility] Record: [id number] Date of (): 2000 EEG Date: 11/29/2023 [...] 24 channel EEG recording acquired on a [employer] digital ambulatory EEG acquisition system. Scalp electrodes [...] documented in this encounter Visit Diagnoses Diagnosis Seizure-like activity (HCC) documented in this encounter Care Teams Wood Room Hand Relationship Specialty Start Date End Date Unknown, Notinfile PCP - General 10/20/22 Unknown, Notinfile 07/12/21 documented as of this encounter
--- OUTSIDE RECORDS SUMMARY | 2024-08-05 00:20 | XMS_ITS | Encounter Summary ---
Author Organization [facility] Healthcare Address [address] [place] [address] Care Team Providers Care Accordion Tuner Name Role Phone Unknown, Notinfile Unavailable Unavailable Unknown, Notinfile Primary Care Provider Unavail able Reason for Visit * Reason Comments Syncope * Auth/Cert (Routine) Specialty Diagnoses / Procedures Referred By Contac t Referred To Contact Diagnoses Hyperemesis gravidarum Hyperthyroidism Procedures NA Referral ID Status Reason Start Date Expiration Date Visits Re quested Visits Authorized [id number] 1 1 Encounter Details Date Type Department Care Team (Latest Contact Info) Description 03/25/2023 7:44 PM CDT - 03/27/2023 1:50 PM CDT Hospital Encounter [place] [address] [address] [place] [address] Wilfred Lopez MD [address] [place] [address] [address] [place], [place] [id number] Michael Marr MD [facility] [place] [address] Theresa Tello MD [address] [place] [address] [place] [address] Dickson Morillo MD [address] [facility] [place] [address] Hyperemesis gravidarum (Primary Dx); Hyperthyroidism; Twin w problem Discharge Disposition: Discharge to home or self [...] often do you attend chur ch or gnosticism services? More than 4 times per year 03/26/2023 Do you belong to any clubs o r organizations such as catholic groups, unions, fraternal or athletic groups, or [...] the money to buy more. Never true 08/07/20 23 Within the past 12 months, t [...] place to sleep or slept in a jail (including now)? No 03/26/2023 Personal Safety Answer Date Recorded Have you ever been in or are you currently in a harmful physical or emotional relationship or is someone making you feel afraid or unsafe? 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 on file documented as of this encounter Last Filed Vital Signs Vital Sign Reading Time Taken Comments Blood Pressure 104/60 03/27/2023 11:47 AM CDT Pulse 90 03/27/2023 11:47 AM CDT Temperature 36.5 ??C (97.7 ??F) 03/27/2023 1 1:47 AM CDT Respiratory Rate 18 03/27/2023 11:4 7 AM CDT Oxygen Saturation 99% 03/27/2023 11: 47 AM CDT Inhaled Oxygen Concentration - - Weight 50.3 kg (110 lb 14.3 oz) 03/26/2023 4:19 AM CDT Height 160 cm (5' 3 ) 03/26/2023 4:19 AM CDT Body Mass Index 19.64 03/26/2023 4:19 AM CDT documented in this encounter Discharge Summaries * Dickson Morillo MD - 03/27/2023 11:41 AM CDT Inpatient Discharge Summary Patient Name - Lorri Donovan Patient Age - 22 yrs Patient - [id number] [facility] - [id number] Document Creation Date: 03/27/2023 Admitting Provider, MD: Michael Marr MD Discharge Provider, MD: Dickson Morillo MD Primary Care Physician at Discharge: Unknown, Notinfile None Admission Date: 03/25/2023 Discharge Date/time: 03/27/2023 Admission Location: [facility] LOS - LOS: 1 day DETAILS OF HOSPITAL STAY Hospital Problems/Diagnoses Principal Problem: Sinus tachycardia Active Problems: Hyperemesis gravidarum Palpitations Hyperthyroidism SIRS (systemic inflammatory response syndrome) (CMS/HCC) (HCC) Hyponatremia Reason for Hospitalization: Patient presented to the emergency room with chief complaint of palpitation and syncope Hospital Course: CHIEF COMPLAINT: Patient is a 22 y.o. female with a PMHx significant for current 13 weeks with twins, epilepsy. Presents to the ED with a chief complaint of chest pain, palpitations, syncope. HPI: Patient reports that her 4th visit in the emergency room for chest pain and palpitations. She was recently diagnosed with hyperthyroidism at [facility], has a follow-up appointment April 03with Maternal- Medicine for further evaluation and management. Has not yet been started in the medications for the hyperthyroidism. Presents today due to persistent palpitations, lightheadednessand ultimately syncopal episode earlier in the day. She was caught by her family and lower to the ground, she did not hit her head. No seizure activity reported by family who witnessed the event. Shereports she has not had a seizure in over a year. Patient denies fever, or chills lower extremity edema, dysuria, hematuria, vaginal bleeding, abdominal pain. She does report chest pain with the palpitations described as an aching sensation and pounding. No shortness of breath. She does report nausea and vomiting and poor oral intake due to the persistent nausea and vomiting since . ASSESSMENT/PLAN: Principal Problem: Sinus tachycardia Active Problems: Hyperemesis gravidarum Palpitations Hyperthyroidism SIRS (systemic inflammatory response syndrome) (CMS/HCC) (HCC) Hyponatremia Resolved Problems: No resolved hospital problems. Palpitations Sinus tachycardia: Patient initially presented with heart rate in the 130s. Has improved 1 teens [id number] after propranolol initiated and normal saline bolusing. Workup thus far suggestive of hypothyroidism. See below for details in management. Workup was otherwise included evaluation for: -infection: Patient does meet SIRS criteria, see below for detailed discussion. -anemia: Hemoglobin stable at patient's baseline. -ACS: Troponin negative x2. EKG without acute ischemic changes. -hypo or hyperglycemia: Glucose 80 on presentation. Dextrose maintenance IVF ongoing. Monitor Accu-Chek -electrolyte derangements: No significant derangements appreciated on initial laboratory data. Magnesium and phosphorus levels pending. -urine drug screen pending -PE: No hypoxemia, shortness at breath, calf pain or swelling. However patient does report chest pain and is which is a risk factor. D-dimer likely to be elevated setting of . Obtain V/Q scan in the morning. Hyperthyroidism: TSH 0.01; free T4 3.24; free T3 pending. ER review patient case with direct casting operator at [place] recommended initiation of propranolol 10 mg oral Q 8 hours. If free T4 is elevated initiate 50 mg b.i.d. PTU. If this is initiated patient will need Maternal- medicine close follow-up with she does have an appointment on 04/03/2023 at [facility]. Sirs criteria: Patient with 2 of 4 sirs criteria, tachycardia and mild tachypnea. Blood pressure stable within normal limits. Workup for infectious culprit has included evaluation with: -blood cultures not yet sent, will send now -COVID/viral respiratory panel negative -chest x-ray: -urinalysis: Negative for acute cystitis -abdominal examination unremarkable -no nuchal rigidity -no findings on skin survey to suggest cellulitis Normocytic anemia: Hemoglobin on presentation 11.8 grams/deciliter. Stable at patient's baseline. Hyponatremia: Mild, sodium 133 on presentation. Patient received 3 L normal saline bolus in the emergency room. Maintenance IVF ongoing. Trend level. Thirteen weeks : ED performed bedside ultrasound, no significant abnormalities appreciated.Patient case discussed by ED with OB Gyne is following appreciate assistance in management. Seizure disorder: Continue Lamictal. Follows with [facility] Neurology 04/11/23 Sinus tachycardia Resolved with treatment of hyperthyroidism Hyperthyroidism Was started on Inderal 10 mg every 8 hours and PTU 50 mg b.i.d. Has a follow-up appointment with Maternal- Medicine on 04/03/2023 which she will keep Sirs criteria Patient had 2 sirs criteria which were secondary to tachycardia from her hyperthyroidism and dehydration. 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 Patient hasa follow-up appointment with her neurologist which she should keep. Did not recommend any other seizure medicine because of her . Patient has not had any seizures in the past year and her neurologist feels that her seizures may have been functional and not actually epilepsy. Syncopal episode Crowder to be vasal vagal secondary to her dehydration and tachycardia from her hyperthyroidism Discharge Details Physical Exam at Discharge: Discharge Condition: good Pulse: 97 Resp: 16 BP: 111/57 Temp: 36.4 ??C (97.5 ??F) Weight: 50.3 kg (110 lb 14.3 oz) Pertinent Exam Findings at Discharge: Constitutional: General: She is not in acute distress. Appearance: She is not ill-appearing, toxic-appearing or diaphoretic. HENT: Head: Normocephalic and atraumatic. Right Ear: External ear normal. Left Ear: External ear normal. Nose: Nose normal. Mouth/Throat: Mouth: Mucous membranes are moist. Eyes: Extraocular Movements: Extraocular movements intact. Pupils: Pupils are equal, round, and reactive to light. Cardiovascular: Rate and Rhythm: Regular rhythm. Tachycardia present. Pulses: Normal pulses. Heart sounds: Normal heart sounds. Pulmonary: Effort: Pulmonary effort is normal. Breath sounds: Normal breath sounds. Abdominal: General: There is no distension. Palpations: Abdomen is soft. Tenderness: There is no abdominal tenderness. Musculoskeletal: General: Normal range of motion. Cervical back: Normal range of motion and neck supple. Right lower leg: No edema. Left lower leg: No edema. Skin: General: Skin is warm and dry. Neurological: General: No focal deficit present. Mental Status: She is alert and oriented to person, place, and time. Psychiatric: Mood and Affect: Mood normal. Discharge Disposition: Discharge to home or self care Code Status at Discharge: Full Code Active Issues & Recommended Plan for Follow-up: Patient to keep follow-up appointment with her OBGYN, keep scheduled appointment with the Maternal- Medicine Clinic at [facility] on 04/03/2023, and keep follow-up with her neurologist. Allergies: Depo-provera contraceptive, Penicillin v, Wasp venom, Medroxyprogest- estradiol cyp, and Ceftriaxone Discharge Medications: Your medication list START taking these medications Instructions Last Dose Given Next Dose Due acetaminophen 325 mg tablet Commonly known as: TYLENOL 650 mg, oral, Every 4 hours PRN propranoloL 10 mg tablet Commonly known as: INDERAL 10 mg, oral, Every 8 hours scheduled propylthiouraciL 50 mg tablet Commonly known as: PTU 50 mg, oral, 2 times daily CONTINUE taking these medications Instructions Last Dose Given Next Dose Due calcium carb-D3-mag [id number] [phone] ke-jzon-os-mg tablet 3 tablets, oral, Daily folic acid 1 mg tablet Commonly known as: FOLVITE 1 mg, oral, Daily ondansetron 4 mg tablet Commonly known as: ZOFRAN 4 mg, oral, Every 6 hours [id number] acid 29 mg iron- 1 mg tablet,chewable oral, Daily STOP taking these medications lamoTRIgine 25 mg tablet Commonly known as: LaMICtal Where to Get Your Medications These medications were sent to [facility] - [place], [place] - [address] [facility] [address] propranoloL 10 mg tablet propylthiouraciL 50 mg tablet Information about where to get these medications is not yet available Ask your nurse or doctor about these medications acetaminophen 325 mg tablet Time Spent in Discharge Process: I have spent 20 minutes on discharge planning activities. Time spent was on reviewing the chart, examined the patient, entering orders, completing the discharge summary, and answering patient's questions and concerns. Test Results Pending at Discharge (If Blank, None Found): Pending Labs Order Current Status Pro B-type natriuretic peptide In process Blood culture Blood Preliminary result Blood culture Blood Preliminary result Operative Procedures Performed (If Blank, None Found): Outpatient Follow-Up: Future Appointments Date Time Provider Department Center 05/07/2023 3:30 PM Albert Krueger MD [facility] [address] [place] 05/08/2023 12:00 PM Janeth Ronquillo MD [facility] [address] [place] Please schedule an appointment with the following provider(s): No follow-up provider specified. ANCILLARY INFORMATION Other Procedures & Diagnostic Tests: Transthoracic Echo (TTE) Complete W Doppler/CF Result Date: 03/26/2023 Adult Echocardiogram + + :Name: LORRI DONOVAN Study Date: 03/26/2023 Status: MHE : : Patient Location: [address]^[id number]^eight: 63 in : : Weight: 110 lbBP: 113/60 mmHg: :: 2000 Gender: Female BSA: 1.5 m2 : :Reason For Study: chestpain / : :Ordering Physician: : :MICHAEL MARR : : : :Performed By: Deidre : :NANCY Gonzáles : + + Procedure A two-dimensional transthoracic echocardiogram with color flow and Doppler was performed. Left Ventricle The left ventricle is normal in size. There is normal left ventricular wall thickness. Left ventricular systolic function is normal. Ejection Fraction = 50- 55%. The left ventricular wall motion is normal. Right Ventricle The right ventricle is normal size. The right ventricular systolic function is normal. Atria The left atrial size is normal. Right atrial size is normal. Mitral Valve The mitral valve is normal. There is no evidence of mitral valve prolapse. There istrace mitral regurgitation. Tricuspid Valve The tricuspid valve is normal. There is physiologic tricuspid regurgitation. Right ventricular systolic pressure is normal. Aortic Valve Aortic valve structure is normal. No aortic stenosis . Aortic valve velocity is 136 cm/s. LVOT velocity is 110 cm/s. No aortic regurgitation is present. Pulmonic Valve The pulmonic valve is not well visualized. Pulmonic valve velocity is 107 cm/s. RVOT velocity is 62 cm/s. Great Vessels The aortic root is normal size. IVC appears normal in size. IVC collapses normally with inspiration. Estimated right atrial pressure is ' 5-10' mmHg. Normal right heart pressures. Pericardium There is no pericardial effusion. Diastology Mitral inflow pattern is normal. E/E prime ratio is <8 suggesting normal pulmonary wedge pressure and no LV diastolic dysfunction. No abnormal diastolic relaxation abnormalities. Interpretation Summary Left ventricular systolic function is normal. Ejection Fraction = 50-55%. The right ventricle is normal size. The right ventricular systolic function is normal. Normal right heart pressures. No abnormal diastolic relaxation abnormalities. + + :Measurements with Normals : + + MMode/2D Measurements & Calculations LVOT diam: 1.9 cm LVOT area: 2.8 cm2 Doppler Measurements & Calculations MV E max isacc: MV dec time: Ao V2 max: LV V1 max P.8 cm/sec 0.18 sec 136.0 cm/sec 4.8 mmHg MV A max isacc: Ao max P.4 mmHgLV V1 max: 55.3 cm/sec 110.0 cm/sec MV E/A: 1.4 FEMI(V,D): 2.3 cm2 TV V2 max: PA V2 max: RV V1 max: 64.3 cm/sec 107.0 cm/sec 61.7 cm/sec TV max P.7 mmHg PA max P.6 mmHg Electronically signed by: Thelma Carr MD 03/26/2023 09:23 PM US Ob Under 14 Weeks Result Date: 03/26/2023 EXAM DESCRIPTION: US OB UNDER 14 WEEKS; US OB UNDER 14 WEEKS EACH ADDITIONAL REASON FOR STUDY: , cervix or uterus assessment, need to confirm viability, dates. Early hyper emesis today. Hypothyroidism and epilepsy. Beta- hCG: Not available TECHNIQUE: Transabdominal images acquired of the pelvis. COMPARISON: None FINDINGS: Clinical gestational age: 12 weeks 4 days Clinical estimated Due Date: 10/04/2023 Gestational age by this ultrasound: 13 weeks 2 days GEGE by this ultrasound: 09/29/2023Twin with twin A midline to the maternal left and twin B superior to the maternal right.Cervical length 4.54 cm. Anterior low-lying placenta. Maternal left ovary 3.5 cm x 1.9 cm x 1.8 cm w hile the right ovary measures 2.9 cm x 1.8 cm x 2.8 cm. There is no adnexal mass, and there is no free fluid within the pelvis. Color flow Doppler images show normal blood flow to both ovaries. For twin A, mean crown-rump length 7.19 cm characteristic of gestational age 13 weeks 2 days. heartrate 162 beats per minute. Variable position. For twin B, mean crown-rump length 7.14 cm characteristic of gestational age 13 weeks 2 days. heart rate 158 beats per minute. Variable fetalposition. IMPRESSION: Twin gestation characteristic of gestational age 13 weeks 2 days. Twin A heart rate 162 beats per minute, twin B heart rate 158 beats per minute. THIS IS AN ELECTRONICALLY VERIFIED FINAL REPORT 03/26/2023 9:10 PM - Electronically signed by Boogie Pires M.D. KT: NNAMDI Report ID: [id number] Reading Location: [id number] US Ob Under 14 Weeks Each Additional Result Date: 03/26/2023 EXAM DESCRIPTION: US OB UNDER 14 WEEKS; US OB UNDER 14 WEEKS EACH ADDITIONAL REASON FOR STUDY: , cervix or uterus assessment, need to confirm viability, dates. Early hyper emesis today. Hypothyroidism and epilepsy. Beta- hCG: Not available TECHNIQUE: Transabdominal images acquired of the pelvis. COMPARISON: None FINDINGS: Clinical gestational age: 12 weeks 4 days Clinical estimated Due Date: 10/04/2023 Gestational age by this ultrasound: 13 weeks 2 days GEGE by this ultrasound: 09/29/2023Twin with twin A midline to the maternal left and twin B superior to the maternal right. Cervical length 4.54 cm. Anterior low-lying placenta. Maternal left ovary 3.5 cm x 1.9 cm x 1.8 cm wh ile the right ovary measures 2.9 cm x 1.8 cm x 2.8 cm. There is no adnexal mass, and there is no free fluid within the pelvis. Color flow Doppler images show normal blood flow to both ovaries. For twin A, mean crown-rump length 7.19 cm characteristic of gestational age 13 weeks 2 days. heart rate 162 beats per minute. Variable position. For twin B, mean crown-rump length 7.14 cm characteristic of gestational age 13 weeks 2 days. heart rate 158 beats per minute. Variable position. IMPRESSION: Twin gestation characteristic of gestational age 13 weeks 2 days. Twin A fetalheart rate 162 beats per minute, twin B heart rate 158 beats per minute. THIS IS AN ELECTRONICALLY VERIFIED FINAL REPORT 03/26/2023 9:10 PM - Electronically signed by Boogie Pires M.D. KT: KT Report ID: [id number] Reading Location: [id number] XR Chest 1 View Result Date: 03/26/2023 EXAM DESCRIPTION: XR CHEST 1 VIEW REASON FOR STUDY: Chest pain. Syncopal episode 2 days ago. Patient is 13 weeks . Patient shielded and consent signed. TECHNIQUE: PA upright radiographic view(s) of the chest. COMPARISON: Chest radiograph 02/13/2020 FINDINGS: LUNGS: No consolidation or pneumothorax. No large pleural effusion. HEART/MEDIASTINUM: Cardiac silhouette normal in size. Mediastinal and hilar contours appear normal. LINES/TUBES: None. BONES: No acute osseous abnormality. IMPRESSION: No acute radiographic abnormality. THIS IS AN ELECTRONICALLY VERIFIED FINAL REPORT 03/26/2023 12:22 PM - Electronically signed by Everette Todd M.D. LB: LB Report ID: [id number] Reading Location: [id number] NM Pulmonary Perfusion Imaging Result Date: 03/26/2023 EXAM DESCRIPTION: NM PULMONARY PERFUSION IMAGING RADIOPHARMACEUTICAL: 2.6 mCi Tc-99m MAA via a right forearm IV site REASON FOR STUDY: Syncope with palpitations. Chest pain and shortness of breath for 2 days. TECHNIQUE: Standard multi-planar perfusion scintigrams were obtained. COMPARISON: Chest radiograph 03/26/2023 FINDINGS: Perfusion images obtained in multiple projections show relatively homogeneous distribution of the radiotracer to both lungs. No large segmental perfusion defects are seento suggest pulmonary embolism. IMPRESSION: 1. Normal perfusion lung scan. THIS IS AN ELECTRONICALLYVERIFIED FINAL REPORT 03/26/2023 12:14 PM - Electronically signed by Everette Todd M.D. LB: LB Report ID: [id number] Reading Location: [id number] Recent Labs: Recent Labs Lab Units 03/26/23 0436 03/25/231953 WBC K/cumm 5.0 6.9 HEMOGLOBIN g/dL 9.8* 11.8* HEMATOCRIT % 29.9* 34.9* PLATELETS K/cumm 201 248 Recent Labs Lab Units 03/26/23 04303/25/231953 WBC K/cumm 5.0 6.9 HEMOGLOBIN g/dL 9.8* 11.8* HEMATOCRIT % 29.9* 34.9* PLATELETS K/cumm 201 248 NEUTROS PCT % -- 64.4 LYMPHS PCT % -- 22.9 MONOS PCT % -- 11.8 EOS PCT % -- 0.0 Recent Labs Lab Units 03/26/2343503/25/231953 SODIUM mmol/L 133* 133* POTASSIUM PLASMA mmol/L 3.5 3.6 CHLORIDE mmol/L 107 101 CO2 mmol/L 16* 17* BUN SERUM mg/dL 4* 7 CREATININE mg/dL 0.40* 0.40* [id number] mL/min/1.73 m2 143 143 GLUCOSE mg/dL 89 80 CALCIUM mg/dL 8.6 9.8 ALBUMIN g/dL 3.1* 3.9 PHOSPHORUS PLASMA mg/dL 3.0 -- Recent Labs Lab Units 03/26/2343503/25/231953 SODIUM mmol/L 133* 133* POTASSIUM PLASMA mmol/L 3.5 3.6 CHLORIDE mmol/L 107 101 CO2 mmol/L 16* 17* ANIONGAP mmol/L 10 15 GLUCOSE mg/dL 89 80 BUN SERUM mg/dL 4* 7 CREATININE mg/dL 0.40* 0.40* CALCIUM mg/dL 8.6 9.8 ALBUMIN g/dL 3.1* 3.9 ALK PHOS Units/L 46 60 ALT Units/L 12 14 AST Units/L 17 22 BILIRUBIN TOTAL mg/dL 0.3 0.4 Recent Labs Lab Units 03/26/2343503/25/231953 ALK PHOS Units/L 46 60 BILIRUBIN TOTAL mg/dL 0.3 0.4 TOTAL PROTEIN g/dL 6.2* 7.8 ALT Units/L 12 14 AST Units/L 17 22 Recent Labs Lab Units 03/26/23435 MAGNESIUM mg/dL 1.5 Lab Results Component Value Date GLUCOSE 89 03/26/2023 GLUCOSE 80 03/25/2023 GLUCOSE 93 10/20/2022 Implant: Implants No active implants to display in this view. General Precautions (If Blank, None Found): Seizure Precautions: Oxygen set-up at bedside Isolation Status: No active isolations Nutritional Status and in-house recommendations: Dietary Orders (From admission, onward) Start Ordered 03/26/23 141 Adult Diet Regular Diet effective now Question: (MHB/MHE) Diet type Answer: Regular 03/26/23 1419 Anticoagulation Indication: INR: No results found for requested labs within last 30 days. Warfarin Administrations (last 168 hours) None Oxygen Status: O2 Therapy for the past 12 hrs: O2 Therapy 03/27/23 0755 None (Room air) 03/27/23 0434 None (Room air) Wound Care Instructions Other Instructions Call provider for: Temperature -Temperature greater than 101 degrees F Call provider for: difficulty breathing or chest pain Call provider for: hives Call provider for: persistent nausea or vomiting Call provider for: redness, tenderness, or signs of infection (pain, swelling, redness, odor or green/yellow discharge around incision site) Call provider for: severe uncontrolled pain Call provider for: headache, visual disturbances, weakness and speech changes Active LDAs (If Blank, None Found): Peripheral IV 03/25/23 20 G Right Antecubital (Active) Placement Date/Time: 03/25/231945 Type: Angiocath Size (Gauge): 20 G Location Orientation: Right Location: Antecubital Site Prep: Alcohol Technique: Anatomical landmarks Inserted by: Cody Muñiz RN Insertion attempts: 1 Patient Tolerance:... Patient Emergency Contact: Primary Emergency Contact: krystina donovan Immunization Status at Discharge Immunization History Administered Date(s) Administered Influenza, Quadrivalent, Split, Preservative Free, Intramuscular 05/14/2021 Pfizer SARS-CoV-2 Monovalent Vaccination (12+ Yrs) PURPLE 05/30/2021 Tdap 02/16/2021 Dickson Morillo MD documented in this encounter Discharge Instructions * Discharge Instructions* Dalila Alexander RN - 03/27/2023 11:35 AM CDT Patient to follow-up with high risk clinic which is scheduled for 04/03/23 at [facility]. Patient has a ultrasound scheduled for tomorrow. * Discharge Instr - Diet* Ginger Rodríguez, SHELLEY - 03/27/2023 11:30 AM CDT Recommend to eat a generally healthy diet with foods that include a variety of fruits, vegetables, whole-grain breads, low-fat dairy products, beans, lean meats, and fish. Limit fast food, sugary drinks, excess salt, and desserts. Limit sugary drinks like lemonade, regular soda, Gatorade, and sweettea and drink water throughout the day. Call [phone] to speak with a dietitian about any diet related concerns. Additional resources are available online from the Academy of Nutrition and Dietetics at www.eatright.org * Attachments The following attachments cannot be sent through Care Everywhere. * Propranolol (By mouth) (Irish) * Propylthiouracil (By mouth) (Irish) * Graves Disease (Farm Product Purchaser) (Irish) documented in this encounter Medications at Time of Discharge acetaminophen (TYLENOL) 325 mg tabletIndication s:Fever,Pain Take 2 tablets (650 mg total) by mouth every 4 (four) hours as needed for pain, headaches or fever 30 tablet 03/27/2023 4 calcium carb/D3/magnesiu m/zinc (calcium carb-D3-mag [id number]) [phone] ig-dsli-eq-mg tablet Take 3 tablets by mouth daily 4 folic acid (FOLVITE) 1 mg tablet Take 1 tablet (1 mg total) by mouth daily 30 tablet 11 03/01/2023 4 ondansetron (ZOFRAN) 4 mg tablet Take 1 tablet (4 mg total) by mouth every 6 (six) hours 12 tablet 10/20/2022 4 [id number] acid 29 mg iron- 1 mg tablet,chewable Take 1 tablet by mouth daily 4 propranoloL (INDERAL) 10 mg tablet Take 1 tablet (10 mg total) by mouth every 8 (eight) hours 90 tablet 03/27/2023 4 propylthiouraciL (PTU) 50 mg tablet Take 1 tablet (50 mg total) by mouth 2 (two) times a day 60 tablet 03/27/2023 4 documented as of this encounter Ordered Prescriptions Prescription Sig Dispense Quantity Refills Last Filled Start Date End Date propylthiouraciL (PTU) 50 mg tablet Take 1 tablet (50 mg total) by mouth 2 (two) times a day 60 tablet 03/27/2023 4 propranoloL (INDERAL) 10 mg tablet Take 1 tablet (10 mg total) by mouth every 8 (eight) hours 90 tablet 03/27/2023 4 propylthiouraciL (PTU) 50 mg tablet Take 1 tablet (50 mg total) by mouth 2 (two) times a day 60 tablet 03/27/2023 3 propranoloL (INDERAL) 10 mg tablet Take 1 tablet (10 mg total) by mouth every 8 (eight) hours 90 tablet 03/27/2023 3 acetaminophen (TYLENOL) 325 mg tabletIndications: Fever,Pain Take 2 tablets (650 mg total) by mouth every 4 (four) hours as needed for pain, headaches or fever 30 tablet 03/27/2023 4 documented in this encounter Discharge Disposition Disposition Code Departure Means Destination Comment s Discharge to home or self care documented in this encounter Progress Notes * Favian Boyd - 03/26/2023 3:13 PM CDT Patient went down for procedure. Follow up visit might be needed. * Natalee Faye MSW - 03/26/2023 11:55 AM CDT ABIMAEL discussed case with PIPO Lua, no need for SW at this time JEANINE Lo 03/26/23 documented in this encounter H&P Notes * Michael Marr MD - 03/26/2023 1:29 AM CDT Images from the original note were not included. History and Physical Date of Service: 03/26/2023 Primary Care Physician: Unknown, Notinfile None CHIEF COMPLAINT: Patient is a 22 y.o. female with a PMHx significant for current 13 weeks with twins, epilepsy. Presents to the ED with a chief complaint of chest pain, palpitations, syncope. HPI: Patient reports that her 4th visit in the emergency room for chest pain and palpitations. She was recently diagnosed with hyperthyroidism at [facility], has a follow-up appointment April 03with Maternal- Medicine for further evaluation and management. Has not yet been started in the medications for the hyperthyroidism. Presents today due to persistent palpitations, lightheadednessand ultimately syncopal episode earlier in the day. She was caught by her family and lower to the ground, she did not hit her head. No seizure activity reported by family who witnessed the event. Shereports she has not had a seizure in over a year. Patient denies fever, or chills lower extremity edema, dysuria, hematuria, vaginal bleeding, abdominal pain. She does report chest pain with the palpitations described as an aching sensation and pounding. No shortness of breath. She does report nausea and vomiting and poor oral intake due to the persistent nausea and vomiting since . Past Medical History: Diagnosis Date Allergic rhinitis Anemia Anxiety Depression Heart murmur Jaundice Migraines Seizure-like activity (HCC) 03/01/2023 Seizures (HCC) Urinary tract infection Past Surgical History: Procedure Laterality Date STRABISMUS SURGERY Bilateral (Not in a hospital admission) Allergies Allergen Reactions Depo-Provera Contraceptive Anaphylaxis Throat closes Penicillin V Anaphylaxis Wasp Venom Anaphylaxis Medroxyprogest-Estradiol Cyp Unknown Ceftriaxone Dizziness and Other (See comments) Dizziness/Light Headed numbness Social History Tobacco Use Smoking status: Never Smokeless tobacco: Never Substance and Sexual Activity Drug use: Never Sexual activity: Yes Partners: Male Alcohol Use: Not on file Denies illicit drug use Family History Problem Relation Age of Onset Hypertension Father Autism spectrum disorder Brother Mental illness Brother Diabetes Maternal Grandmother Diabetes Maternal Grandfather Hearing loss Paternal Grandmother Hearing loss Paternal Grandfather Arthritis Mother Mental illness Mother Seizures Mother Review of Systems: Review of Systems Constitutional: Positive for appetite change (decreased) and fatigue. Negative for chills and fever. HENT: Negative for congestion. Eyes: Negative for pain and redness. Respiratory: Negative for cough and shortness of breath. Cardiovascular: Positive for chest pain and palpitations. Negative for leg swelling. Gastrointestinal: Positive for nausea and vomiting. Negative for abdominal distention, abdominal pain, blood in stool, constipation and diarrhea. Genitourinary: Negative for dysuria and flank pain. Musculoskeletal: Negative for arthralgias and back pain. Skin: Negative for color change and pallor. Neurological: Positive for syncope and light-headedness. Negative for seizures, weakness and headaches. Psychiatric/Behavioral: Negative for agitation. OBJECTIVE: Vitals: Arrival Vitals Temp 03/25/231937 37.3 ??C (99.2 ??F) Pulse 03/25/231937 (!) 132 Resp 03/25/231937 22 BP 03/25/231937 136/77 SpO2 03/25/231937 100 % Temp src 03/25/231937 Oral Heart Rate Source 03/25/231944 Monitor Patient Position 03/25/231944 HOB 30 degrees BP Location 03/25/231944 Right arm FiO2 (%) -- Most Recent : Vitals: 03/25/23 2300 03/25/23 2330 03/26/23 0000 03/26/23 0030 BP: 120/62 109/54 113/62 115/67 BP Location: Right arm Patient Position: Pulse: 119 120 (!) 127 122 Resp: Temp: TempSrc: SpO2: 98% 97% 98% 99% Physical Exam: Physical Exam Vitals reviewed. Constitutional: General: She is not in acute distress. Appearance: She is not ill-appearing, toxic-appearing or diaphoretic. HENT: Head: Normocephalic and atraumatic. Right Ear: External ear normal. Left Ear: External ear normal. Nose: Nose normal. Mouth/Throat: Mouth: Mucous membranes are moist. Eyes: Extraocular Movements: Extraocular movements intact. Pupils: Pupils are equal, round, and reactive to light. Cardiovascular: Rate and Rhythm: Regular rhythm. Tachycardia present. Pulses: Normal pulses. Heart sounds: Normal heart sounds. Pulmonary: Effort: Pulmonary effort is normal. Breath sounds: Normal breath sounds. Abdominal: General: There is no distension. Palpations: Abdomen is soft. Tenderness: There is no abdominal tenderness. Musculoskeletal: General: Normal range of motion. Cervical back: Normal range of motion and neck supple. Right lower leg: No edema. Left lower leg: No edema. Skin: General: Skin is warm and dry. Neurological: General: No focal deficit present. Mental Status: She is alert and oriented to person, place, and time. Psychiatric: Mood and Affect: Mood normal. Behavior: Behavior normal. Lab/Radiology/Diagnostic Review: Recent Results (from the past 24 hour(s)) Beta-hydroxybutyrate Collection Time: 03/25/23 7:53 PM Result Value Ref Range Beta-Hydroxybutyrate 0.9 (H) <=0.5 mmol/L CBC with auto differential Collection Time: 03/25/23 7:54 PM Result Value Ref Range WBC 6.9 3.8 - 9.9 K/cumm Hgb 11.8 (L) 11.9 - 15.5 g/dL Hct 34.9 (L) 35.6 - 45.5 % Plt 248 150 - 400 K/cumm MPV 9.2 9.1 - 12.3 fL RBC 4.53 3.90 - 5.20 M/cumm MCV 77.0 (L) 81.3 - 96.4 fL MCH 26.0 (L) 27.1 - 33.3 pg MCHC 33.8 32.3 - 35.7 g/dL RDW CV 15.8 (H) 11.1 - 14.9 % RDW SD 44.6 35.7 - 48.1 fL NRBC abs 0.00 0.00 - 0.01 K/cumm Comprehensive metabolic panel Collection Time: 03/25/23 7:54 PM Result Value Ref Range Sodium 133 (L) 135 - 145 mmol/L Potassium, pl 3.6 3.3 - 4.9 mmol/L Chloride 101 97 - 110 mmol/L CO2 17 (L) 22 - 32 mmol/L Anion gap 15 2 - 15 mmol/L BUN 7 6 - 25 mg/dL Creatinine 0.40 (L) 0.60 - 1.10 mg/dL Glucose 80 70 - 199 mg/dL Calcium 9.8 8.5 - 10.3 mg/dL Bilirubin, total 0.4 0.1 - 1.2 mg/dL Protein, pl 7.8 6.5 - 8.5 g/dL Albumin 3.9 3.5 - 5.0 g/dL Alk phos 60 40 - 130 Units/L ALT 14 7 - 45 Units/L AST 22 10 - 45 Units/L hCG, blood, quantitative Collection Time: 03/25/23 7:54 PM Result Value Ref Range hCG, quant 239,678.0 (H) 0.0 - 5.0 IUnits/L Troponin T high-sensitivity series (baseline, 2hr, 4hr, 6hr) Collection Time: 03/25/23 7:54 PM Result Value Ref Range Trop T hs <6 <=14 ng/L TSH reflex to free T4 Collection Time: 03/25/23 7:54 PM Result Value Ref Range TSH 0.01 (L) 0.30 - 4.20 mcIUnit/mL Differential, auto Collection Time: 03/25/23 7:54 PM Result Value Ref Range Neutrophil abs 4.4 1.7 - 6.5 K/cumm Imm gran abs 0.0 0.0 - 0.1 K/cumm Lymphocyte abs 1.6 0.8 - 3.3 K/cumm Monocyte abs 0.8 0.2 - 0.8 K/cumm Eosinophil abs 0.0 0.0 - 0.5 K/cumm Basophil abs 0.0 0.0 - 0.1 K/cumm Neutrophil pct 64.4 % Imm gran pct 0.3 % Lymphocyte pct 22.9 % Monocyte pct 11.8 % Eosinophil pct 0.0 % Basophil pct 0.6 % eGFR Collection Time: 03/25/23 7:54 PM Result Value Ref Range eGFR 143 mL/min/1.73 m2 T4, free Collection Time: 03/25/23 7:54 PM Result Value Ref Range Free T4 3.24 (H) 0.90 - 1.70 ng/dL Pro B-type natriuretic peptide Collection Time: 03/25/23 7:54 PM Result Value Ref Range NT-proBNP 79 <=300 pg/mL Influenza A/B, RSV, and COVID-19 PCR Nasopharyngeal Collection Time: 03/25/23 8:37 PM Specimen: Nasopharyngeal Result Value Ref Range COVID-19 RNA Negative Negative Influenza A RNA Negative Negative Influenza B RNA Negative Negative RSV RNA Negative Negative Troponin T high-sensitivity 2-hour Collection Time: 03/25/23 10:05 PM Result Value Ref Range Trop T hs <6 <=14 ng/L Trop T hs delta 0 ng/L Trop T hs interp Insignificant Urinalysis reflex to microscopic and culture Urine Collection Time: 03/25/23 11:05 PM Specimen: Urine Result Value Ref Range Color, ur Yellow Yellow Clarity, ur Clear Clear Specific gravity, ur 1.020 1.003 - 1.030 pH, urine 6.0 Protein, ur ql Negative Negative Glucose, ur ql 2+ (A) Negative Ketones, ur 2+ (A) Negative Bilirubin, ur Negative Negative Blood, ur Negative Negative Urobilinogen, ur 4.0 (A) <2.0 mg/dL Nitrite, ur Negative Negative Leukocyte esterase, ur Negative Negative UA reflex comment Reflex conditions for microscopic UA and culture not met. ASSESSMENT/PLAN: Principal Problem: Sinus tachycardia Active Problems: Hyperemesis gravidarum Palpitations Hyperthyroidism SIRS (systemic inflammatory response syndrome) ([facility]/HCC) ([facility]) Hyponatremia Resolved Problems: No resolved hospital problems. Palpitations Sinus tachycardia: Patient initially presented with heart rate in the 130s. Has improved 1 teens [id number] after propranolol initiated and normal saline bolusing. Workup thus far suggestive of hypothyroidism. See below for details in management. Workup was otherwise included evaluation for: -infection: Patient does meet SIRS criteria, see below for detailed discussion. -anemia: Hemoglobin stable at patient's baseline. -ACS: Troponin negative x2. EKG without acute ischemic changes. -hypo or hyperglycemia: Glucose 80 on presentation. Dextrose maintenance IVF ongoing. Monitor Accu-Chek -electrolyte derangements: No significant derangements appreciated on initial laboratory data. Magnesium and phosphorus levels pending. -urine drug screen pending -PE: No hypoxemia, shortness at breath, calf pain or swelling. However patient does report chest pain and is which is a risk factor. D-dimer likely to be elevated setting of . Obtain V/Q scan in the morning. Hyperthyroidism: TSH 0.01; free T4 3.24; free T3 pending. ER review patient case with direct casting operator at [place] recommended initiation of propranolol 10 mg oral Q 8 hours. If free T4 is elevated initiate 50 mg b.i.d. PTU. If this is initiated patient will need Maternal- medicine close follow-up with she does have an appointment on 04/03/2023 at [facility]. Sirs criteria: Patient with 2 of 4 sirs criteria, tachycardia and mild tachypnea. Blood pressure stable within normal limits. Workup for infectious culprit has included evaluation with: -blood cultures not yet sent, will send now -COVID/viral respiratory panel negative -chest x-ray: -urinalysis: Negative for acute cystitis -abdominal examination unremarkable -no nuchal rigidity -no findings on skin survey to suggest cellulitis Normocytic anemia: Hemoglobin on presentation 11.8 grams/deciliter. Stable at patient's baseline. Hyponatremia: Mild, sodium 133 on presentation. Patient received 3 L normal saline bolus in the emergency room. Maintenance IVF ongoing. Trend level. Thirteen weeks : ED performed bedside ultrasound, no significant abnormalities appreciated.Patient case discussed by ED with OB Gyne is following appreciate assistance in management. Seizure disorder: Continue Lamictal. Follows with [facility] Neurology ESTIMATED LENGTH OF STAY: Greater than 2 midnights My total encounter time on 03/26/2023 was 62 minutes which was spent in the activities documented in the note. This includes time spent prior to the visit and after the visit in direct care of the patient. This time does not include time spent in any separately reportable services. Medical Decision Making Complexity: Moderate DVT prophylaxis: Low risk, encourage early ambulation Full code per discussion with patient at bedside Voice recognition software MModal Fluency Direct may have been used to dictate and transcribe this document. Pmo Lead variances may occur. Despite proofreading, typographical errors may occur. Michael Marr MD 03/26/2023 1:29 AM documented in this encounter Consult Notes * Ginger Rodríguez, RD - 03/27/2023 9:59 AM CDTAssociated Order(s): IP CONSULT TO NUTRITION SERVICES Nutrition Assessment Reason for Assessment: Initial Nutrition Assessment and Consult/Referral Encounter Date: 03/27/23 11:30 AM Patient is a 22 y.o. female. Admit Dx: Hyperemesis gravidarum [O21.0] Hyperthyroidism [E05.90]. Admitted on 03/25/2023, current LOS is 1 days. Nutrition Diagnosis 1: Unintended weight loss Related to: Acute illness/injury, Other (comment) (Patient stated thyroid issue caused weight loss) Evidenced by: Patient interview ASPEN Malnutrition Assessment: Date of completion (or initial diagnosis): 03/27/23 Patient does not meet criteria for malnutrition based on ASPEN guidelines. Nutrition-focused physical exam (NFPE) findings: ASPEN/AND Malnutrition Screening: Patient does not meet malnutrition criteria ASSESSMENT AND INTERVENTION/RECOMMENDATIONS: Acknowledging consult for MST 2, 2-13 lb weight loss, decreased appetite. Patient was admitted on 03/25/23 for sinus tachycardia. Past medical history includes epilepsy, hyperemesis gravidarum. Patientis currently 13 weeks with twins. Per chart review, hyperemesis mostly resolved. She is izzy regular diet with 25% for 2 meals documented since 03/26. Patient stated she is not experiencing any GI symptoms. Her appetite is good and she was eating good [employer] but stated she gets full quickly. She also stated her hyperemesis has resolved. Her UBW is around 120-130 lbs, and she has noticed abouta 25 lb weight loss over the last few months which she relates to her thyroid issue. Weight historyin EMR shows weight loss however none significant for time period. Patient is from home and will likely return after discharge. RD ordered daily Wts per MNT Protocol and will continue to monitor. EDUCATION NEEDED/COMPLETED? General, healthful nutrition therapy attached to diet discharge instructions along with RD contact information in case any questions arise. GOALS / MONITORING: Goals: Adequate nutrition to meet estimated needs by next assessment, Oral intake to meet 75% estimated nutritional needs by next assessment, Prevent further unintended weight loss during admission, Promote slow and steady weight gain 1/2 to 1 pound per week Interventions: Assess for nutrition changes, Encouragement, Initial assessment, Regular weights Monitoring and Evaluation: Discharge plans, I/O, Labs, Plan of care, PO intake, Weight changes Anthropometrics: Wt Readings from Last 10 Encounters: 03/26/23 50.3 kg (110 lb 14.3 oz) 03/01/23 50.6 kg (111 lb 8 oz) 10/20/22 53.2 kg (117 lb 4.6 oz) 12/28/21 50.8 kg (112 lb) 12/23/21 50.8 kg (112 lb) 09/05/21 51.1 kg (112 lb 11.2 oz) 07/12/21 52.4 kg (115 lb 8 oz) 06/15/21 52.1 kg (114 lb 12.8 oz) 08/06/20 48.4 kg (106 lb 12.8 oz) (10 %, Z= -1.27)* 03/19/19 45.8 kg (100 lb 15.5 oz) (5 %, Z= -1.63)* * Growth percentiles are based on [facility] (Girls, 2-20 Years) data. Anthropometrics Weight: 50.3 kg (110 lb 14.3 oz) Admission Weight : 50.3 kg Weight Change: -0.27 kg (-0.60 lbs) IBW/kg (Calculated) : 52.2 kg Height: 160 cm (5' 3 ) Weight in (lb) to have BMI = 25: 140.8 BMI (Calculated): 19.6 Estimated Nutrition Needs: Calories Calculated Energy Needs Using Equations Weight Used for Equation Calculations (RD Determined): 50.3 kg (110 lb 14.3 oz) Weight: 50.3 kg (110 lb 14.3 oz) Height: 160 cm (5' 3 ) Conor Avila Equation (Overweight or Obese Patients): 1232 Equation Chosen to Use by RD: Aracely Castro Activity Factor: 1.4 Total Energy Needs: 1724.8 kcal Total Energy Needs + Fever Factor: 1724.8 Protein Estimated Protein Needs Type of Weight Used for Estimated Protein : Current Protein Needs Based on g/k.5 Total Protein Estimated Needs (gm): 75.45 Fluid Estimated Fluid Needs Type of Weight Used for Estimated Fluid Needs: Current Fluid Needs Based on : 35 ml/kg Total Fluid Estimated Needs: 1760.5 Medications: Folic acid, Propranolol, Zofran PRN Lab Review:03/26/23 Na 133 (L) BUN 4 (L) Cre 0.40 (L) Past Medical History: Diagnosis Date Allergic rhinitis Anemia Anxiety Depression Heart murmur Jaundice Migraines Seizure-like activity (HCC) 03/01/2023 Seizures (HCC) Urinary tract infection Past Surgical History: Procedure Laterality Date STRABISMUS SURGERY Bilateral Dietary Orders (From admission, onward) Start Ordered 03/26/23 1419 Adult Diet Regular Diet effective now Question: (MHB/MHE) Diet type Answer: Regular 03/26/23 1419 Diet Instructions Recommend to eat a generally healthy diet with foods that include a variety of fruits, vegetables, whole-grain breads, low-fat dairy products, beans, lean meats, and fish. Limit fast food, sugary drinks, excess salt, and desserts. Limit sugary drinks like lemonade, regular soda, Gatorade, and sweettea and drink water throughout the day. Call [phone] to speak with a dietitian about any diet related concerns. Additional resources are available online from the Academy of [employer] and Dietetics at www.eatright.org Nutrition Follow-Up : 03/30/23 (PO Check) * Grisel Nogueira MD - 03/26/2023 12:23 PM CDTAssociated Order(s): IP CONSULT TO PRICING/SIGNAGE TEAM MEMBER Chief Complaint: palpitations Subjective: Patient is a 22 y.o. female @ approximately 13 weeks gestation by stated GEGE with twin admitted for complaints of palpitations, sob, and syncopal episodes. She states the problems started very early in with hyperemesis which has not mostly resolved. She denies vomiting every day, but does report persistent nausea which is relieved by zofran given to her by her primary OB Dr. Merchant. She also reports a history of epilepsy with Grand Mal seizures. Last seizure was > 1year ago. Now seeing new neurologist at [facility] who has started her on lamotrigine which she started 3 weeks ago. She has a history of 1 prior vaginal 2 years ago. Past Medical History: Diagnosis Date Allergic rhinitis Anemia Anxiety Depression Heart murmur Jaundice Migraines Seizure-like activity (HCC) 03/01/2023 Seizures (HCC) Urinary tract infection Past Surgical History: Procedure Laterality Date STRABISMUS SURGERY Bilateral Social History Tobacco Use Smoking status: Never Smokeless tobacco: Never Substance and Sexual Activity Drug use: Never Sexual activity: Yes Partners: Male Alcohol Use: Not At Risk (03/26/2023) AUDIT-C Frequency of Alcohol Consumption: Never Average Number of Drinks: Patient does not drink Frequency of Binge Drinking: Never Family History Problem Relation Age of Onset Hypertension Father Autism spectrum disorder Brother Mental illness Brother Diabetes Maternal Grandmother Diabetes Maternal Grandfather Hearing loss Paternal Grandmother Hearing loss Paternal Grandfather Arthritis Mother Mental illness Mother Seizures Mother Medications Prior to Admission Medication Sig Dispense Refill Last Dose folic acid (FOLVITE) 1 mg tablet Take 1 tablet (1 mg total) by mouth daily 30 tablet 11 Past Week lamoTRIgine (LaMICtal) 25 mg tablet Take 1 tab nightly for 14 days, then 1 tab twice daily for 14 days, then 2 tabs twice daily for 7 days, then 3 tabs twice daily for 7 days, then 4 tabs twice tablet 11 Past Month ondansetron (ZOFRAN) 4 mg tablet Take 1 tablet (4 mg total) by mouth every 6 (six) hours 12 tablet 0 03/25/2023 [id number] acid 29 mg iron- 1 mg tablet,chewable Take by mouth daily Past Week calcium carb/D3/magnesium/zinc (calcium carb-D3-mag [id number]) [phone] lm-dfdj-ho-mg tablet Take 3 tablets by mouth daily Past Week Allergies Allergen Reactions Depo-Provera Contraceptive Anaphylaxis Throat closes Penicillin V Anaphylaxis Wasp Venom Anaphylaxis Medroxyprogest-Estradiol Cyp Unknown Ceftriaxone Dizziness and Other (See comments) Dizziness/Light Headed numbness Review of Systems Constitutional: Positive for appetite change and fatigue. Respiratory: Positive for shortness of breath. Negative for cough and chest tightness. Cardiovascular: Positive for chest pain and palpitations. Negative for leg swelling. Gastrointestinal: Positive for nausea. Negative for abdominal distention, constipation, diarrhea and vomiting. Genitourinary: Negative for difficulty urinating, dysuria, hematuria and urgency. Musculoskeletal: Negative for gait problem. Physical Exam Vitals reviewed. Constitutional: General: She is not in acute distress. Appearance: Normal appearance. Comments: Thin build HENT: Head: Normocephalic. Cardiovascular: Rate and Rhythm: Regular rhythm. Tachycardia present. Pulmonary: Effort: Pulmonary effort is normal. Abdominal: General: Abdomen is flat. There is no distension. Palpations: Abdomen is soft. Musculoskeletal: General: Normal range of motion. Cervical back: Normal range of motion. Skin: General: Skin is warm and dry. Neurological: General: No focal deficit present. Mental Status: She is alert and oriented to person, place, and time. Psychiatric: Mood and Affect: Mood normal. Behavior: Behavior normal. LABS: Recent Labs Lab Units 03/26/23 0436 WBC K/cumm 5.0 RBC M/cumm 3.79* HEMOGLOBIN g/dL 9.8* HEMATOCRIT % 29.9* A Negative Assessment/Plan: 22 y/o @ approximately 13 weeks by stated GEGE with reported twin here for variousconcerns including tachycardia, possible hyperthyroidism, anemia - ultrasound ordered to confirm dates/viability of - no further recommendations from OB standpoint at this time Grisel Nogueira MD Date: 03/26/2023 Time: 12:24 PM documented in this encounter ED Notes * Wilfred Lopez MD - 03/25/2023 8:04 PM CDT History of Present Illness Patient information was obtained primarily from the patient, medical records, Elidaleigh ann Donovan is a 22 y.o. female with hx as below, who presents with c/o vomiting. Pt states that she has been vomiting nonstop today cannot keep anything down. Pt states that she is 13 weeks with twins. Patient states that she was recently diagnosed with hyperthyroidism 2 weeks ago at [facility]. Patient states that this is her 5th ER visit for chest pain palpitations. Patientstates that she has been on feeling generalized weakness and cannot keep anything down. Relevant Medical History Past Medical History: Diagnosis Date Allergic rhinitis Anemia Anxiety Depression Heart murmur Jaundice Migraines Seizure-like activity (HCC) 03/01/2023 Seizures (HCC) Urinary tract infection Past Surgical History: Procedure Laterality Date STRABISMUS SURGERY Bilateral Family History Problem Relation Age of Onset Hypertension Father Autism spectrum disorder Brother Mental illness Brother Diabetes Maternal Grandmother Diabetes Maternal Grandfather Hearing loss Paternal Grandmother Hearing loss Paternal Grandfather Arthritis Mother Mental illness Mother Seizures Mother Social History Tobacco Use Smoking status: Never Smokeless tobacco: Never Substance and Sexual Activity Drug use: Never Sexual activity: Yes Partners: Male Alcohol Use: Not on file Allergies Allergen Reactions Depo-Provera Contraceptive Anaphylaxis Throat closes Penicillin V Anaphylaxis Wasp Venom Anaphylaxis Medroxyprogest-Estradiol Cyp Unknown Ceftriaxone Dizziness and Other (See comments) Dizziness/Light Headed numbness Review of Systems All systems reviewed and are neg or non contributory for this patients presentation today other than as stated in the HPI . Physical Exam ED Triage Vitals Temp Pulse Resp BP SpO2 03/25/23193703/25/23193703/25/23193703/25/23193703/25/231937 37.3 ??C (99.2 ??F) (!) 132 22 136/77 100 % Temp src Heart Rate Source Patient Position BP Location FiO2 (%) 03/25/23193703/25/23194403/25/23194403/25/231944 -- Oral Monitor HOB 30 degrees Right arm Height Height Method Weight Weight Method -- -- -- -- Physical Exam Vitals and nursing note reviewed. Constitutional: General: She is not in acute distress. Appearance: She is well-developed. HENT: Head: Normocephalic and atraumatic. Comments: Dry mucous membrane Eyes: Conjunctiva/sclera: Conjunctivae normal. Cardiovascular: Rate and Rhythm: Regular rhythm. Tachycardia present. Heart sounds: No murmur heard. Pulmonary: Effort: Pulmonary effort is normal. No respiratory distress. Breath sounds: Normal breath sounds. Abdominal: Palpations: Abdomen is soft. Tenderness: There is no abdominal tenderness. Musculoskeletal: General: No swelling. Cervical back: Neck supple. Skin: General: Skin is warm and dry. Capillary Refill: Capillary refill takes less than 2 seconds. Neurological: Mental Status: She is alert. Psychiatric: Mood and Affect: Mood normal. Studies and Interpretation Labs Reviewed URINALYSIS AND REFLEX TO MICROSCOPIC AND CULTURE CBC WITH AUTO DIFFERENTIAL COMPREHENSIVE METABOLIC PANEL HCG, BLOOD, QUANTITATIVE Medications sodium chloride 0.9% 0.9% infusion - ADS Override Pull (1,000 mL New Bag 03/25/231954) No orders to display Medical Decision Making Medical Decision Making Clinical problems/dx: Lorri Donovan is a 22 y.o. female who presents with vomiting and generalized weakness. 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 All questions answered. ED Course ED Course as of 03/26/23212 Time: 03/25 2213 Value: T4, free(!): Free T4 3.24(!) Comment: Known, Hyperthyrodisim however untreated. By: Wilfred Lopez MD Time: 03/25 2317 Value: Urinalysis reflex to microscopic and culture Urine Comment: (Reviewed) By: Wilfred Lopez MD Time: 03/26 211 Comment: Spoke with Endocrine ([facility]) who stated to give propanolol Q8, 10 mg and titrate to her HR is well controlled and not symptomatic ([id number]). Await the free T3 and if it is elevatedat PTU 50mg BID. If PTU is given, the pt needs follow up with Endorcine or High Risk MFM By: Wilfred Lopez MD [id number] Ayon (endcocrinology) who agreed Propanlol is ok for rate control. States to giveIV 20 mg q6 if the pt is not tolerating PO. Procedures ED Final Diagnosis and Discharge information 1. Hyperemesis gravidarum 2. Hyperthyroidism Disposition Admit Note: This H+P was created with the aid of dictation software, thus there may be some word substitutions or errors Wilfred Lopez MD 03/26/23 0320 * Kaitlyn Saini RN - 03/25/2023 7:30 PM CDT Pt to ED with c/o vomiting and syncope. Pt states she had syncope multiple times today. Pt states she was diagnosed with hypothyroidism last . Pt hasn't started any medication for that yet. Pt is 13 weeks . documented in this encounter Miscellaneous Notes * Plan of Care - Kaleb Castrejon RN - 03/27/2023 3:31 AM CDT Goals: Clinical Goals for the Shift: VS every 4 hours, control nausea/vomiting, manage pain, fall precautions Problem: Health Behavior: Goal: Understanding of discharge needs will improve Outcome: Progressing Problem: Lack of Knowledge: Goal: Ability to state ways to decrease the risk of falls will improve Outcome: Progressing Problem: Safety: Goal: Will remain free from falls Outcome: Progressing Goal: Will remain free from injury from falls Outcome: Progressing Goal: Will remain free from falls and injury in home environment Outcome: Progressing Problem: Lack of Knowledge: Goal: Verbalization of understanding the information provided will improve Outcome: Progressing Problem: Nutritional: Goal: Maintenance of adequate nutrition will improve Outcome: Progressing Problem: Sensory: Goal: Occurrences of nausea will decrease Outcome: Progressing Problem: Cardiac: Goal: Will achieve and/or maintain adequate cardiac output Outcome: Progressing Problem: Lack of Knowledge: Goal: Knowledge of disease or condition and prescribed therapeutic regimen will improve Outcome: Progressing Problem: Coping: Goal: Level of anxiety will decrease Outcome: Progressing Problem: Physical Regulation: Goal: Complications related to the disease process, condition or treatment will be avoided or minimized Outcome: Progressing Problem: Safety: Goal: Will remain free from injury Outcome: Progressing Problem: Lack of Knowledge: Goal: Ability to develop a pain control plan will improve Outcome: Progressing Goal: Ability to identify pain intensity on a pain scale and rate it consistently will improve Outcome: Progressing Goal: Ability to notify healthcare provider of pain before it becomes unmanageable or unbearable will improve Outcome: Progressing Problem: Medication: Goal: Satisfaction with pain management regimen will improve Outcome: Progressing Problem: Sensory: Goal: Ability to identify factors that increase the pain will improve Outcome: Progressing Goal: Pain level will decrease Outcome: Progressing Problem: Activity: Goal: Ability to return to normal activity level will improve Outcome: Progressing Problem: Lack of Knowledge: Goal: Knowledge of the prescribed therapeutic regimen will improve Outcome: Progressing Problem: Coping: Goal: Ability to cope will improve Outcome: Progressing Problem: Health Behavior: Goal: Identification of resources available to assist in meeting health care needs will improve Outcome: Progressing Problem: Sensory: Goal: Pain level will decrease Outcome: Progressing * Plan of Care - Dalila Alexander RN - 03/26/2023 5:09 PM CDT Problem: Health Behavior: Goal: Understanding of discharge needs will improve Outcome: Progressing Problem: Lack of Knowledge: Goal: Verbalization of understanding the information provided will improve Outcome: Progressing Problem: Coping: Goal: Level of anxiety will decrease Outcome: Progressing Goals: Clinical Goals for the Shift: VS every 4 hours, control nausea/vomiting, manage pain, fall precautions Summary: Patient reported pain that was well controled with PRN medication. Able to spontaneously void when she ambulated to bathroom. VSS. No acute changes. * Initial Assessments - Marli Chirinos RN - 03/26/2023 1:56 PM CDT PIPO Initial Assessment Interview Note Information Obtained From: Patient (03/26/231347) Admission Source: Emergency Impression: vomiting and syncope. Plan Includes: Consult to registered dietitian, Echo, telemetry Monitoring, IV fluids. Met with patient at bedside. Home independently, family is able to transport at discharge. Primary Source of Transportation: Does the patient need discharge transport arranged?: No (03/26/231347) Health Insurance Coverage: [employer] [facility] - [place] - [address] [place] [address] Primary Care Provider: Unknown, Notinfile Prior to Admission: Functional Status: Independent with ADLs Primary Caregiver: Self Support System: Spouse/Significant Other Durable Medical Equipment: None Living Arrangements: Spouse/significant other, Children Type of Residence: Private residence (03/26/231347) SDOH: Transportation: In the past 12 months, has lack of transportation kept you from medical appointments or from getting medications?: No In the past 12 months, has lack of transportation kept you from meetings, work, or from getting things needed for daily living?: No (03/26/231348) Financial Resource: How hard is it for you to pay for the very basics like food, housing, medical care, and heating?: Not hard at all (03/26/231348) Housing: In the last 12 months, was there a time when you were not able to pay the mortgage or rent on time?: No In the last 12 months, how many places have you lived?: 1 In the last 12 months, was there a time when you did not have a steady place to sleep or slept in ashelter (including now)?: No (03/26/23 135) Social Connections: In a typical week, how many times do you talk on the phone with family, friends, or neighbors?: More than three times a week How often do you get together with friends or relatives?: More than three times a week How often do you attend catholic or gnosticism services?: More than 4 times per year Do you belong to any clubs or organizations such as catholic groups, unions, fraternal or athletic groups, or school groups?: No How often do you attend meetings of the clubs or organizations you belong to?: Never Are you , , , , never , or living with a partner?: (03/26/23 1349) Food Insecurity: Within the past 12 months, you worried that your food would run out before you got the money to buymore.: Never true Within the past 12 months, the food you bought just didn't last and you didn't have money to get more.: Never true (03/26/23 1356) Behavioral Health Services: Behavioral Health Services: No (03/26/231347) Patient expects to be Discharged to: Private residence, (03/26/231347) Patient's Identified Problem/Goal Problem: Ensure acute medical needs are met and that patient has a safe discharge plan. Goal: Secure a discharge plan that patient/family are agreeable with and ensure patient has continuum of care. Case management will follow for discharge planning and send referrals as needed. Goals include: To assure continuity of care, To maximize coping skills, To assure patient is in a safe environment and To assure access to community resources. Plan includes: 1. Collaboration with patient, MD, direct care nurse, Legal Support Assistant, and other members of the health care team to assure needed interventions completed. 2. Return patient to optimal level of self-care post discharge. 3. Float Phlebotomist will follow for Discharge Planning - interventions as needed 4. Anticipated level of care at discharge 5. Planned Discharge Disposition Marli Chirinos RN * Plan of Care - Theresa Tello MD - 03/26/2023 8:29 AM CDT Will monitor HR, blood cultures Currently on D5 NS, scheduled propranolol, folic acid Will add pyridoxine for nausea fT3 is elevated, will initiate PTU 50mg BID. Pt already has MFM fu next week Nausea is better, less dizzy and weak as well No dysuria, sob, chest pain, abdom pain Has mild headache Multiple fhx on both sides with RA, and other fam members has hypothyroidism, and hyperthyroidism Low suspicion for sepsis, hold off on abx, monitor blood cx result Tachycardia more likely from hyperthyroidism, Has close f/up with MFM, will defer antibody testing and ultrasound to outpt evaluation. documented in this encounter Plan of Treatment Pending Results Name Type Priority Associated Diagnoses Date /Time Pro B-type natriuretic peptide Lab STAT 03/25/2023 7:54 PM CDT Scheduled Orders Name Type Priority Associated Diagnoses Orde r Schedule Pro B-type natriuretic peptide Lab STAT Once for 1 Occur rences starting 03/25/2023 until 03/25/2023 documented as of this encounter Procedures Procedure Name Priority Date/Time Associated Diagnosis Comments US OB UNDER 14 WEEKS EACH ADDITIONAL IP Routine 03/26/2023 7:20 PM CDT Twin w problem US OB UNDER 14 WEEKS IP Routine 03/26/2023 7:20 PM CDT DRUGS OF ABUSE SCREEN, URINE WITHOUT CONFIRMATION Routine 03/26/2023 4:45 PM CDT XR CHEST 1 VIEW IP Routine 03/26/2023 11:58 AM CDT ECG 12-LEAD Routine 03/26/2023 11:48 AM CDT TRANSTHORACIC ECHO (TTE) COMPLETE W DOPPLER/CF WO CONTRAST Routine 03/26/2023 11:16 AM CDT NM PULMONARY PERFUSION IMAGING IP Routine 03/26/2023 11:14 AM CDT BLOOD CULTURE Routine 03/26/2023 4:42 AM CDT EGFR Routine 03/26/2023 4:36 AM CDT BLOOD CULTURE Routine 03/26/2023 4:36 AM CDT CBC WITHOUT DIFFERENTIAL Routine 03/26/2023 4:36 AM CDT PHOSPHORUS Routine 03/26/2023 4:36 AM CDT MAGNESIUM Routine 03/26/2023 4:36 AM CDT COMPREHENSIVE METABOLIC PANEL Routine 03/26/2023 4:36 AM CDT URINALYSIS AND REFLEX TO MICROSCOPIC AND CULTURE STAT 03/25/2023 11:05 PM CDT TROPONIN T HIGH-SENSITIVITY 2-HOUR Timed 03/25/2023 10:05 PM CDT T3, FREE Add-On 03/25/2023 10:05 PM CDT INFLUENZA A/B, RSV, AND COVID-19 PCR Routine 03/25/2023 8:37 PM CDT TROPONIN T HIGH-SENSITIVITY SERIES (BASELINE, 2HR, 4HR, 6HR) Add-On 03/25/2023 7:54 PM CDT EGFR STAT 03/25/2023 7:54 PM CDT DIFFERENTIAL AUTO STAT 03/25/2023 7:5 4 PM CDT PRO B-TYPE NATRIURETIC PEPTIDE STAT 03/25/2023 7:54 PM CDT THYROID FUNCTION CASCADE Add-On 03/25/2023 7:54 PM CDT CBC WITH AUTO DIFFERENTIAL STAT 03/25/2023 7:54 PM CDT HCG, BLOOD, QUANTITATIVE Add-On 03/25/2023 7:54 PM CDT T4, FREE Add On 03/25/2023 7:54 PM CDT COMPREHENSIVE METABOLIC PANEL STAT 03/25/2023 7:54 PM CDT BETA-HYDROXYBUTYRATE Add-On 03/25/2023 7:53 PM CDT ECG 12-LEAD STAT 03/25/2023 7:36 PM CDT documented in this encounter Results * US Ob Under 14 Weeks Each Additional (03/26/2023 7:20 PM CDT) Anatomical Region Laterality Modality Abdomen N/A Ultrasound 03/26/2023 8:56 PM CDT Narrative 03/26/2023 9:10 PM CDT EXAM DESCRIPTION: ?? US OB UNDER 14 WEEKS; US OB UNDER 14 WEEKS EACH ADDITIONAL REASON FOR STUDY: ?? , cervix or uterus assessment, need to confirm viability, dates. ??Early hyper emesis today. ??Hypothyroidism and epilepsy. Beta-hCG: ?Not available TECHNIQUE: ?? Transabdominal ??images acquired of the pelvis. COMPARISON: ?? None FINDINGS: Clinical gestational age: ?? 12 weeks 4 days Clinical estimated Due Date: ?? 10/04/2023 ?? Gestational age by this ultrasound: ?? 13 weeks 2 days GEGE by this ultrasound: ?? 09/29/2023 Twin with twin A midline to the maternal left and twin B superior to the maternal right. ??Cervical length 4.54 cm. ??Anterior low-lying placenta. ?? Maternal left ovary 3.5 cm x 1.9 cm x 1.8 cm while the right ovary measures 2.9 cm x 1.8 cm x 2.8 cm. ??There is no adnexal mass, and there is no free fluid within the pelvis. ??Color flow Doppler images show normal blood flow to both ovaries. For twin A, mean crown-rump length 7.19 cm characteristic of gestational age 13 weeks 2 days. ?? heart rate 162 beats per minute. ??Variable position. For twin B, mean crown-rump length 7.14 cm characteristic of gestational age 13 weeks 2 days. ?? heart rate 158 beats per minute. ??Variable position. IMPRESSION: Twin gestation characteristic of gestational age 13 weeks 2 days. ?? Twin A heart rate 162 beats per minute, twin B heart rate 158 beats per minute. THIS IS AN ELECTRONICALLY VERIFIED FINAL REPORT 03/26/2023 9:10 PM - Electronically signed by ??Boogie Pires M.D. KT: [email or web address] D: ??03/26/2023 9:10 PM T: ??03/26/2023 9:10 PM Report ID: [id number] Reading Location: ??[id number] Procedure Note Boogie Pires MD - 03/26/2023 EXAM DESCRIPTION: US OB UNDER 14 WEEKS; US OB UNDER 14 WEEKS EACHADDITIONAL REASON FOR STUDY: , cervix or uterus assessment, need to confirm viability, dates. Early hyper emesis today. Hypothyroidism and epilepsy. Beta-hCG: Not available TECHNIQUE: Transabdominal images acquired of the pelvis. COMPARISON: None FINDINGS: Clinical gestational age: 12 weeks 4 days Clinical estimated Due Date: 10/04/2023 Gestational age by this ultrasound: 13 weeks 2 days GEGE by this ultrasound: 09/29/2023 Twin with twin A midline to the maternal left and twin Bsuperior to the maternal right. Cervical length 4.54 cm. Anterior low-lyingplacenta. Maternal left ovary 3.5 cm x 1.9 cm x 1.8 cm while the right ovarymeasures 2.9 cm x 1.8 cm x 2.8 cm. There is no adnexal mass, and there is no free fluid within the pelvis. Color flow Doppler images show normal blood flowto both ovaries. For twin A, mean crown-rump length 7.19 cm characteristic of gestationalage 13 weeks 2 days. heart rate 162 beats per minute. Variable position. For twin B, mean crown-rump length 7.14 cm characteristic of gestationalage 13 weeks 2 days. heart rate 158 beats per minute. Variable position. IMPRESSION: Twin gestation characteristic of gestational age 13 weeks 2days. Twin A heart rate 162 beats per minute, twin B heart rate 158 beats per minute. THIS IS AN ELECTRONICALLY VERIFIED FINAL REPORT 03/26/2023 9:10 PM - Electronically signed by Boogie Pires M.D. KT: KT Report ID: [id number] Reading Location: [id number] Grisel Nogueira MD IMG OB US PROCEDURES Final Resu lt * US Ob Under 14 Weeks (03/26/2023 7:20 PM CDT) Anatomical Region Laterality Modality Abdomen N/A Ultrasound 03/26/2023 8:56 PM CDT Narrative 03/26/2023 9:10 PM CDT EXAM DESCRIPTION: ?? US OB UNDER 14 WEEKS; US OB UNDER 14 WEEKS EACH ADDITIONAL REASON FOR STUDY: ?? , cervix or uterus assessment, need to confirm viability, dates. ??Early hyper emesis today. ??Hypothyroidism and epilepsy. Beta-hCG: ?Not available TECHNIQUE: ?? Transabdominal ??images acquired of the pelvis. COMPARISON: ?? None FINDINGS: Clinical gestational age: ?? 12 weeks 4 days Clinical estimated Due Date: ?? 10/04/2023 ?? Gestational age by this ultrasound: ?? 13 weeks 2 days GEGE by this ultrasound: ?? 09/29/2023 Twin with twin A midline to the maternal left and twin B superior to the maternal right. ??Cervical length 4.54 cm. ??Anterior low-lying placenta. ?? Maternal left ovary 3.5 cm x 1.9 cm x 1.8 cm while the right ovary measures 2.9 cm x 1.8 cm x 2.8 cm. ??There is no adnexal mass, and there is no free fluid within the pelvis. ??Color flow Doppler images show normal blood flow to both ovaries. For twin A, mean crown-rump length 7.19 cm characteristic of gestational age 13 weeks 2 days. ?? heart rate 162 beats per minute. ??Variable position. For twin B, mean crown-rump length 7.14 cm characteristic of gestational age 13 weeks 2 days. ?? heart rate 158 beats per minute. ??Variable position. IMPRESSION: Twin gestation characteristic of gestational age 13 weeks 2 days. ?? Twin A heart rate 162 beats per minute, twin B heart rate 158 beats per minute. THIS IS AN ELECTRONICALLY VERIFIED FINAL REPORT 03/26/2023 9:10 PM - Electronically signed by ??Boogie Pires M.D. KT: NNAMDI D: ??03/26/2023 9:10 PM T: ??03/26/2023 9:10 PM Report ID: [id number] Reading Location: ??[id number] Procedure Note Boogie Pires MD - 03/26/2023 EXAM DESCRIPTION: US OB UNDER 14 WEEKS; US OB UNDER 14 WEEKS EACHADDITIONAL REASON FOR STUDY: , cervix or uterus assessment, need to confirm viability, dates. Early hyper emesis today. Hypothyroidism and epilepsy. Beta-hCG: Not available TECHNIQUE: Transabdominal images acquired of the pelvis. COMPARISON: None FINDINGS: Clinical gestational age: 12 weeks 4 days Clinical estimated Due Date: 10/04/2023 Gestational age by this ultrasound: 13 weeks 2 days GEGE by this ultrasound: 09/29/2023 Twin with twin A midline to the maternal left and twin Bsuperior to the maternal right. Cervical length 4.54 cm. Anterior low-lyingplacenta. Maternal left ovary 3.5 cm x 1.9 cm x 1.8 cm while the right ovarymeasures 2.9 cm x 1.8 cm x 2.8 cm. There is no adnexal mass, and there is no free fluid within the pelvis. Color flow Doppler images show normal blood flowto both ovaries. For twin A, mean crown-rump length 7.19 cm characteristic of gestationalage 13 weeks 2 days. heart rate 162 beats per minute. Variable position. For twin B, mean crown-rump length 7.14 cm characteristic of gestationalage 13 weeks 2 days. heart rate 158 beats per minute. Variable position. IMPRESSION: Twin gestation characteristic of gestational age 13 weeks 2days. Twin A heart rate 162 beats per minute, twin B heart rate 158 beats per minute. THIS IS AN ELECTRONICALLY VERIFIED FINAL REPORT 03/26/2023 9:10 PM - Electronically signed by Boogie Pires M.D. KT: NNAMDI Report ID: [id number] Reading Location: [id number] us Grisel Nogueira MD IM OB US PROCEDURES Final Resu lt * Drugs of Abuse Screen, Urine without Confirmation (03/26/2023 4:45 PM CDT) [facility] Amphetamine, ur Not Detected CutOff 500ng/mL [facility] Comment: Interpretive Data - Amphetamines: ??Samples containing greater than 500 ng/mL d-methamphetamine ??or other cross-reacting amphetamine compounds are reported as positive. ??Amphetamine immunoassays are subject to significant false positive rates due to cross-reactivity of non-amphetamine drugs. Confirmatory testing required for definitive results. Current Interpretive Data was last reviewed 2023. Testing performed by: [address] [address] Barbiturates, ur Not Detected CutOff 200ng/mL [facility] Comment: Interpretive Data - Barbiturates: ??Samples containing greater than 200 ng/mL secobarbital or other cross-reacting barbiturate compounds are reported as positive. ??False positive and false negative results are possible. Confirmatory testing required for definitive results. Current Interpretive Data was last reviewed 2023. Testing performed by: [address] [address] Benzodiazepines, ur Not Detected CutOff 100ng/mL [facility] Comment: Interpretive Data - Benzodiazepines: ??Samples containing greater than 100 ng/mL nordiazepam or other cross-reacting compounds are reported as positive. False positive and false negative results are possible. Confirmatory testing required for definitive results. Current Interpretive Data was last reviewed 2023. Testing performed by: [address] [address] Cannabinoids, ur Not Detected CutOff 50 ng/mL [facility] Comment: Interpretive Data - Cannabinoids: ??Samples containing greater than 50 ng/mL delta-9 THC -COOH or other cross-reacting compounds are reported as positive. ??False positive and false negative results are possible. ??Confirmatory testing required for definitive results. Current Interpretive Data was last reviewed 2023. Testing performed by: [address] [address] Cocaine, ur Not Detected CutOff 150ng/mL [facility] Comment: Interpretive Data - Cocaine: ??Samples containing greater than 150 ng/mL benzoylecgonine or other cross-reacting compounds are reported as positive. False positive and false negative results are possible. Confirmatory testing required for definitive results. Current Interpretive Data was last reviewed 2023. Testing performed by: [address] [address] Fentanyl, Ur Not Detected Cutoff 1 ng/mL [facility] Comment: Interpretive Data - Fentanyl: ??Samples containing greater than 1 ng/mL fentanyl or other cross-reacting fentanyl compounds are reported as positive. ??False positive and false negative results are possible. Confirmatory testing required for definitive results. Current Interpretive Data was last reviewed 2023. Testing performed by: [address] [address] Methadone, ur Not Detected CutOff 300ng/mL [facility] Comment: Interpretive Data - Methadone: ??Samples containing greater than 300 ng/mL d,l-methadone or other cross-reacting compounds are reported as positive. ??False positive and false negative results are possible. Confirmatory testing required for definitive results. Current Interpretive Data was last reviewed 2023. Testing performed by: [address] [address] Opiates, ur Not Detected CutOff 300ng/mL [facility] Comment: Interpretive Data - Opiates: ??Samples containing greater than 300 ng/mL morphine or other cross-reacting compounds are reported as positive. ??False positive and false negative results are possible. Confirmatory testing required for definitive results. Current Interpretive Data was last reviewed 2023. Testing performed by: [address] [address] Oxycodone, ur Not Detected CutOff 100ng/mL [facility] Comment: Interpretive Data - Oxycodone: ??Samples containing greater than 100 ng/mL oxycodone or other cross-reacting compounds are reported as ??positive. ??False positive and false negative results are possible. Confirmatory testing required for definitive results. Current Interpretive Data was last reviewed 2023. Testing performed by: [address] [address] Phencyclidine, ur Not Detected CutOff 25 ng/mL [facility] Comment: Interpretive Data - Phencyclidine: ??Samples containing greater than 25 ng/mL phencyclidine or other cross-reacting compounds are reported as positive. ??False positive and false negative results are possible. Confirmatory testing required for definitive results. Current Interpretive Data was last reviewed 2023. Testing performed by: [facility], [address] [place] [address]., [address] Urine Creatinine 42 mg/dL [facility] Comment: Interpretive Data Urine Creatinine: < 10 mg/dL is extremely dilute = or > 10 but < 20 mg/dL is dilute = or > 20 mg/dL is normal Current Interpretive Data was last revised on 2017. Testing performed by: [facility], [address] [place] [address]., [address] Urine 03/26/2023 4:45 PM CDT 03/26/2023 5:01 PM CDT Narrative [facility] - 03/26/2023 5:41 PM CDT Drug of Abuse screening is performed by immunoassay for medical purposes only. ??This is not to be used for Pain Management purposes. us Michael Marr MD LAB URINE ORDERABLES Final Result [facility] [address] [facility] [place] [address] * XR Chest 1 View (03/26/2023 11:58 AM CDT) Anatomical Region Laterality Modality Body, Chest N/A Computed Radiogr aphy 03/26/2023 12:1 9 PM CDT Narrative 03/26/2023 12:22 PM CDT EXAM DESCRIPTION: XR CHEST 1 VIEW REASON FOR STUDY: Chest pain. ??Syncopal episode 2 days ago. Patient is 13 weeks . Patient shielded and consent signed. ?? TECHNIQUE: PA upright ??radiographic view(s) of the chest. COMPARISON: Chest radiograph 02/13/2020 FINDINGS: LUNGS: ??No consolidation or pneumothorax. No large pleural effusion. HEART/MEDIASTINUM: ??Cardiac silhouette normal in size. Mediastinal and hilar contours appear normal. LINES/TUBES: ??None. BONES: ??No acute osseous abnormality. IMPRESSION: No acute radiographic abnormality. THIS IS AN ELECTRONICALLY VERIFIED FINAL REPORT 03/26/2023 12:22 PM - Electronically signed by ??Everette Todd M.D. LB: LB D: ??03/26/2023 12:22 PM T: ??03/26/2023 12:22 PM Report ID: [id number] Reading Location: ??[id number] Procedure Note Everette Todd MD - 03/26/2023 EXAM DESCRIPTION: XR CHEST 1 VIEW REASON FOR STUDY: Chest pain. Syncopal episode 2 days ago. Patient is 13 weeks . Patient shielded and consent signed. TECHNIQUE: PA upright radiographic view(s) of the chest. COMPARISON: Chest radiograph 02/13/2020 FINDINGS: LUNGS: No consolidation or pneumothorax. No large pleuraleffusion. HEART/MEDIASTINUM: Cardiac silhouette normal in size. Mediastinal andhilar contours appear normal. LINES/TUBES: None. BONES: No acute osseous abnormality. IMPRESSION: No acute radiographic abnormality. THIS IS AN ELECTRONICALLY VERIFIED FINAL REPORT 03/26/2023 12:22 PM - Electronically signed by Everette Todd M.D. LB: LB Report ID: [id number] Reading Location: [place] [address] us Michael Marr MD IMG XR PROCEDURES Fin al Result * ECG 12 lead (03/26/2023 11:48 AM CDT) Pathologist [facility] Ventricular Rate EKG/Min 88 BPM [facility] Atrial Rate 88 BPM [facility] ME-Interval (MSEC) 164 ms [facility] QRS-Interval (MSEC) 96 ms [facility] QT-Interval (MSEC) 398 ms [facility] QTc 481 ms [facility] P [place] 51 degrees [facility] R [place] 67 degrees [facility] T [place] -2 degrees [facility] Diagnosis Normal sinus rhythm Abnormal QRS-T angle, consider primary T wave abnormality Prolonged QT Abnormal ECG When compared with ECG of 25-MAR-2023 19:36, T wave inversion less evident in Inferior leads Nonspecific T wave abnormality no longer evident in Lateral leads Confirmed by TRU DOWELL M.D. ([id number]) on 03/26/2023 11:06:48 PM [facility] Radiation Watch 03/26/2023 11:4 8 AM CDT 03/26/2023 11:06 PM CDT us Michael Marr MD ECG ORDERABLES Final Result [facility] Radiation Watch [facility] * TRANSTHORACIC ECHO (TTE) COMPLETE W DOPPLER/CF WO CONTRAST (03/26/2023 11:16 AM CDT) Anatomical Region Laterality Modality Ultrasound 03/26/2023 11:1 6 AM CDT Narrative 03/26/2023 9:23 PM CDT ? Adult Echocardiogram + ----- + :Name: LORRI DONOVAN ?Study Date: 03/26/2023 ?Status: MHE ?: : ?Patient Location: MHE 5 MEDSUR^[id number]^MHeight: 63 in ?: : ?Weight: 110 lbBP: 113/60 mmHg: :: 2000 ? Gender: Female ?BSA: 1.5 m2 ?: :Reason For Study: chest pain / ?: :Ordering Physician: ?: :VOLKERDING, MICHAEL ? : : ? : :Performed By: Deidre ?: :NANCY Gonzáles ? : + ----- + Procedure A two-dimensional transthoracic echocardiogram with color flow and Doppler was performed. Left Ventricle The left ventricle is normal in size. There is normal left ventricular wall thickness. Left ventricular systolic function is normal. Ejection Fraction = 50-55%. The left ventricular wall motion is normal. Right Ventricle The right ventricle is normal size. The right ventricular systolic function is normal. Atria The left atrial size is normal. Right atrial size is normal. Mitral Valve The mitral valve is normal. There is no evidence of mitral valve prolapse. There is trace mitral regurgitation. Tricuspid Valve The tricuspid valve is normal. There is physiologic tricuspid regurgitation. Right ventricular systolic pressure is normal. Aortic Valve Aortic valve structure is normal. No aortic stenosis . Aortic valve velocity is 136 cm/s. LVOT velocity is 110 cm/s. No aortic regurgitation is present. Pulmonic Valve The pulmonic valve is not well visualized. Pulmonic valve velocity is 107 cm/s. RVOT velocity is 62 cm/s. Great Vessels The aortic root is normal size. IVC appears normal in size. IVC collapses normally with inspiration. Estimated right atrial pressure is ' 5-10' mmHg. Normal right heart pressures. Pericardium There is no pericardial effusion. Diastology Mitral inflow pattern is normal. E/E prime ratio is <8 suggesting normal pulmonary wedge pressure and no LV diastolic dysfunction. No abnormal diastolic relaxation abnormalities. Interpretation Summary Left ventricular systolic function is normal. Ejection Fraction = 50-55%. The right ventricle is normal size. The right ventricular systolic function is normal. Normal right heart pressures. No abnormal diastolic relaxation abnormalities. + + :Measurements with Normals ?: + + MMode/2D Measurements & Calculations LVOT diam: 1.9 cm LVOT area: 2.8 cm2 Doppler Measurements & Calculations MV E max isacc: ? MV dec time: ?Ao V2 max: ? LV V1 max P.8 cm/sec ? 0.18 sec ?136.0 cm/sec ? 4.8 mmHg MV A max isacc: ? Ao max P.4 mmHgLV V1 max: 55.3 cm/sec ?110.0 cm/sec MV E/A: 1.4 ? FEMI(V,D): 2.3 cm2 ? TV V2 max: ?PA V2 max: ?RV V1 max: 64.3 cm/sec ? 107.0 cm/sec ?61.7 cm/sec TV max P.7 mmHg PA max P.6 mmHg Electronically signed by: Thelma Carr MD 03/26/2023 09:23 PM Procedure Note Thelma Carr MD - 03/26/2023 Adult Echocardiogram + ----- + :Name: LORRI DONOVAN Study Date: 03/26/2023Status: MICHELLE : : Patient Location: [address]^[id number]^eit: 63 in : : : 110 lbBP: 113/60 mmHg: :: 2000 Gender: FemaleBSA: 1.5 m2 : :Reason For Study: chest pain / : :Ordering Physician:: :MICHAEL MARR: :: :Performed By: Deidre: :NANCY Gonzáles: + ----- + Procedure A two-dimensional transthoracic echocardiogram with color flow and Dopplerwas performed. Left Ventricle The left ventricle is normal in size. There is normal left ventricularwall thickness. Left ventricular systolic function is normal. Ejection Fraction= 50-55%. The left ventricular wall motion is normal. Right Ventricle The right ventricle is normal size. The right ventricular systolicfunction is normal. Atria The left atrial size is normal. Right atrial size is normal. Mitral Valve The mitral valve is normal. There is no evidence of mitral valveprolapse. There is trace mitral regurgitation. Tricuspid Valve The tricuspid valve is normal. There is physiologic tricuspidregurgitation. Right ventricular systolic pressure is normal. Aortic Valve Aortic valve structure is normal. No aortic stenosis . Aortic valvevelocity is 136 cm/s. LVOT velocity is 110 cm/s. No aortic regurgitation ispresent. Pulmonic Valve The pulmonic valve is not well visualized. Pulmonic valve velocity is107 cm/s. RVOT velocity is 62 cm/s. Great Vessels The aortic root is normal size. IVC appears normal in size. IVCcollapses normally with inspiration. Estimated right atrial pressure is ' 5-10'mmHg. Normal right heart pressures. Pericardium There is no pericardial effusion. Diastology Mitral inflow pattern is normal. E/E prime ratio is <8 suggesting normal pulmonary wedge pressure and no LV diastolic dysfunction. No abnormal diastolic relaxation abnormalities. Interpretation Summary Left ventricular systolic function is normal. Ejection Fraction = 50-55%. The right ventricle is normal size. The right ventricular systolic function is normal. Normal right heart pressures. No abnormal diastolic relaxation abnormalities. + + :Measurements with Normals: + + MMode/2D Measurements & Calculations LVOT diam: 1.9 cm LVOT area: 2.8 cm2 Doppler Measurements & Calculations MV E max isacc: MV dec time: Ao V2 max: LV V1 max P.8 cm/sec 0.18 sec 136.0 cm/sec 4.8 mmHg MV A max isacc: Ao max P.4 mmHgLV V1 max: 55.3 cm/sec 110.0 cm/sec MV E/A: 1.4 FEMI(V,D): 2.3 cm2 TV V2 max: PA V2 max: RV V1 max: 64.3 cm/sec 107.0 cm/sec 61.7 cm/sec TV max P.7 mmHg PA max P.6 mmHg Electronically signed by: Thelma Carr MD 03/26/2023 09:23 PM us Michael Marr MD CV ECHO PROCEDURES Fi nal Result * NM Pulmonary Perfusion Imaging (03/26/2023 11:14 AM CDT) Anatomical Region Laterality Modality Body N/A Nuclear Medicine 03/26/2023 11:3 3 AM CDT Narrative 03/26/2023 12:14 PM CDT EXAM DESCRIPTION: ?? NM PULMONARY PERFUSION IMAGING RADIOPHARMACEUTICAL: 2.6 ??mCi Tc-99m MAA via a ??right forearm ??IV site REASON FOR STUDY: ?? Syncope with palpitations. ?? Chest pain and shortness of breath for 2 days. TECHNIQUE: Standard multi-planar perfusion scintigrams were obtained. COMPARISON: ?? Chest radiograph 03/26/2023 FINDINGS: Perfusion images obtained in multiple projections show relatively homogeneous distribution of the radiotracer to both lungs. ??No large segmental perfusion defects are seen to suggest pulmonary embolism. IMPRESSION: ?? 1. ?? Normal perfusion lung scan. THIS IS AN ELECTRONICALLY VERIFIED FINAL REPORT 03/26/2023 12:14 PM - Electronically signed by ??Everette Todd M.D. LB: YOLI D: ??03/26/2023 12:14 PM T: ??03/26/2023 12:14 PM Report ID: [id number] Reading Location: ??[id number] Procedure Note Everette Todd MD - 03/26/2023 EXAM DESCRIPTION: NM PULMONARY PERFUSION IMAGING RADIOPHARMACEUTICAL: 2.6 mCi Tc-99m MAA via a right forearm IV site REASON FOR STUDY: Syncope with palpitations. Chest pain and shortnessof breath for 2 days. TECHNIQUE: Standard multi-planar perfusion scintigrams were obtained. COMPARISON: Chest radiograph 03/26/2023 FINDINGS: Perfusion images obtained in multiple projections show relativelyhomogeneous distribution of the radiotracer to both lungs. No large segmentalperfusion defects are seen to suggest pulmonary embolism. IMPRESSION: 1. Normal perfusion lung scan. THIS IS AN ELECTRONICALLY VERIFIED FINAL REPORT 03/26/2023 12:14 PM - Electronically signed by Everette Todd M.D. LB: LB Report ID: [id number] Reading Location: [place] [address] Michael Marr MD IMG NM PROCEDURES Fin al Result * Blood culture Blood (03/26/2023 4:42 AM CDT) Report Final Report: No growth [facility] Comment:Testing performed by : [facility], [address] [place] [address] Blood 03/26/2023 4:42 AM CDT 03/26/2023 7:45 AM CDT Narrative [facility] - 03/30/2023 12:00 PM CDT From a different site than #1. Collection->Peripheral 1. ?Blood cultures are incubated for 4 days on a continuously monitored blood culture system. The first report of a negative culture is issued within 24 hours of receipt of the specimen in the laboratory. 2. ?Positive culture results are reported as soon as they are detected. 3. ?The most important factor for detection of microbes in the setting of bloodstream infection is the volume of blood submitted for culture. Failure to collect an optimal blood volume can result in false negative blood cultures. For pediatric patients, the recommended blood volume to collect is 1 mL of blood per year of patient age (up to 20 mL) per blood culture set. For adult patients, 20 mL of blood, divided equally between aerobic and anaerobic blood culture bottles, is recommended for each blood culture set. 4. ?For blood cultures with Gram-positive cocci, a rapid molecular test for organism identification may be performed using the 80/20 [employer]igene Gram-Positive Blood Culture Assay. This assay detects microbial DNA in positive blood culture broth via hybridization of target DNA to capture oligonucleotides on a microarray. This assay has been cleared by the [place] Food and Drug Administration and its performance characteristics have been verified by the [facility]. 5. ?For questions about this culture, contact the Microbiology Laboratory at [phone]. Interpretive data was last revised on 2020. us Michael Marr MD LAB MICROBIOLOGY - NERAL ORDERABLES Final Result [facility] [address] [facility] Department [place] [address] * eGFR (03/26/2023 4:36 AM CDT) eGFR 143 mL/min/1. 73 m2 [facility] Comment: Interpretive Data Reference Interval Normal ?>/= 90 mL/min/1.73m2 Mildly decreased* ? 60 - 89 mL/min/1.73m2 Mildly to moderately decreased ?45 - 59 mL/min/1.73m2 Moderately to severely decreased ??30 - 44 mL/min/1.73m2 Severely decreased ?15 - 29 mL/min/1.73m2 Kidney Failure ?< 15 ??mL/min/1.73m2 *Relative to young adult level Estimated glomerular filtration rate is determined by the 2020 CKD-EPI equation recommended by the National Kidney Foundation (A Unifying Approach to GFR Estimation: Recommendations of the NKF-ASK Task Force on Reassessing the Inclusion of Race in Diagnosing Kidney Disease, JASN 202). The CKD-EPI equation should not be used for patients with unstable renal function and has not been validated in children and those over 70. Current interpretive data was last reviewed 2021. Testing performed by: [facility], [address] [place] [address]., [address] Blood 03/26/2023 4:36 AM CDT 03/26/2023 4:56 AM CDT Michael Marr MD LAB BLOOD ORDERABLES Final Result [facility] [address] [facility] Department [place] [address] * Blood culture Blood (03/26/2023 4:36 AM CDT) Report Final Report: No growth [facility] Comment:Testing performed by : [facility], [address] [place]., [address] Blood 03/26/2023 4:36 AM CDT 03/26/2023 7:45 AM CDT Narrative [facility] NAVA - 03/30/2023 12:00 PM CDT Collection->Peripheral 1. ?Blood cultures are incubated for 4 days on a continuously monitored blood culture system. The first report of a negative culture is issued within 24 hours of receipt of the specimen in the laboratory. 2. ?Positive culture results are reported as soon as they are detected. 3. ?The most important factor for detection of microbes in the setting of bloodstream infection is the volume of blood submitted for culture. Failure to collect an optimal blood volume can result in false negative blood cultures. For pediatric patients, the recommended blood volume to collect is 1 mL of blood per year of patient age (up to 20 mL) per blood culture set. For adult patients, 20 mL of blood, divided equally between aerobic and anaerobic blood culture bottles, is recommended for each blood culture set. 4. ?For blood cultures with Gram-positive cocci, a rapid molecular test for organism identification may be performed using the 80/20 [employer] Gram-Positive Blood Culture Assay. This assay detects microbial DNA in positive blood culture broth via hybridization of target DNA to capture oligonucleotides on a microarray. This assay has been cleared by the [place] Food and Drug Administration and its performance characteristics have been verified by the [facility]biology Laboratory. 5. ?For questions about this culture, contact the Microbiology Laboratory at [phone]. Interpretive data was last revised on 2020. Michael Marr MD LAB MICROBIOLOGY - [facility] ORDERABLES Final Result [facility] [address] [facility] Department of Laboratories [place], [place] [id number] * (ABNORMAL) CBC without differential (03/26/2023 4:36 AM CDT) WBC 5.0 3.8 - 9.9 K/cumm [facility] Comment:Testing performed by : [address] [address] Hgb 9.8(L) 11.9 - 15.5 g/dL [facility] Comment:Testing performed by : [address] [address] Hct 29.9(L) 35.6 - 45.5 % [facility] Comment:Testing performed by : [address] [address] Plt 201 150 - 400 K/cumm [facility] Comment:Testing performed by : [address] [address] MPV 9.4 9.1 - 12.3 fL [facility] Comment:Testing performed by : [address] [address] RBC 3.79(L) 3.90 - 5.20 M/cumm [facility] Comment:Testing performed by : [address] [address] MCV 78.9(L) 81.3 - 96.4 fL [facility] Comment:Testing performed by : [address] [address] MCH 25.9(L) 27.1 - 33.3 pg [facility] Comment:Testing performed by : [address] [address] MCHC 32.8 32.3 - 35.7 g/dL [facility] Comment:Testing performed by : [address] [address] RDW CV 16.2(H) 11.1 - 14.9 % [facility] Comment:Testing performed by : [address] [address] RDW SD 46.6 35.7 - 48.1 fL [facility] Comment:Testing performed by : [address] [address] NRBC abs 0.00 0.00 - 0.01 K/cumm [facility] Comment:Testing performed by : [address] [address] Blood 03/26/2023 4:36 AM CDT 03/26/2023 4:56 AM CDT Michael Marr MD LAB BLOOD ORDERABLES Final Result Performing Organization Address [facility]/ZIP Co de Phone Number [address] [place] [place] [address] * Phosphorus (03/26/2023 4:36 AM CDT) Phosphorus, pl 3.0 2.3 - 4.5 mg/dL [facility] Comment:Testing performed by : [address], [address] Blood 03/26/2023 4:36 AM CDT 03/26/2023 4:56 AM CDT Michael Marr MD LAB BLOOD ORDERABLES Final Result Performing Organization Address City/[facility] Co de Phone Number [address] [address] * (ABNORMAL) Comprehensive metabolic panel (03/26/2023 4:36 AM CDT) Sodium 133(L) 135 - 145 mmol/L [facility] Comment:Testing performed by : [address] [address] Potassium, pl 3.5 3.3 - 4.9 mmol/L [facility] Comment:Testing performed by : [address], [address] Chloride 107 97 - 110 mmol/L [facility] Comment:Testing performed by : [address] [address] CO2 16(L) 22 - 32 mmol/L [facility] Comment:Testing performed by : [address] [address] Anion gap 10 2 - 15 mmol/L [facility] Comment:Testing performed by : [address] [address] BUN 4(L) 6 - 25 mg/dL [facility] Comment:Testing performed by : [address] [address] Creatinine 0.40(L) 0.60 - 1.10 mg/dL [facility] Comment:Testing performed by : [address] [address] Glucose 89 70 - 199 mg/dL [facility] Comment: Interpretive Data Fasting glucose >/= 126 mg/dl is diagnostic for diabetes. ?? Fasting is defined as no caloric intake for at least 8 hours. Fasting glucose between 100 mg/dl to 125 mg/dl is diagnostic of prediabetes. In a patient with classic symptoms of hyperglycemia or hyperglycemic crisis, a random glucose >/= 200 mg/dl is diagnostic for diabetes. In the absence of unequivocal hyperglycemia, results should be confirmed by repeat testing. The classification and Diagnosis of Diabetes Diabetes Care 202; 46: S19-S40. Current interpretive data was last revised 2022. Testing performed by: [address] [address] Calcium 8.6 8.5 - 10.3 mg/dL [facility] Comment:Testing performed by : [address] [address] Bilirubin, total 0.3 0.1 - 1.2 mg/dL [facility] Comment:Testing performed by : [address] [address] Protein, pl 6.2(L) 6.5 - 8.5 g/dL [facility] Comment:Testing performed by : [address] [address] Albumin 3.1(L) 3.5 - 5.0 g/dL [facility] Comment:Testing performed by : [address] [address] Alk phos 46 40 - 130 Units/L [facility] Comment:Testing performed by : [address] [address] ALT 12 7 - 45 Units/L [facility] Comment:Testing performed by : [address] [address] AST 17 10 - 45 Units/L [facility] Comment:Testing performed by : [address] [address] Blood 03/26/2023 4:36 AM CDT 03/26/2023 4:56 AM CDT Michael Marr MD LAB BLOOD ORDERABLES Final Result Performing Organization Address [facility] de Phone Number [address] [place] [address] * Magnesium (03/26/2023 4:36 AM CDT) Magnesium 1.5 1.4 - 2.5 mg/dL [facility] Comment:Testing performed by : [address] [address] Blood 03/26/2023 4:36 AM CDT 03/26/2023 4:56 AM CDT Michael Marr MD LAB BLOOD ORDERABLES Final Result Performing Organization Address [facility] de Phone Number [address] [address] * (ABNORMAL) Urinalysis reflex to microscopic and culture Urine (03/25/2023 11:05 PM CDT) Color, ur Yellow Yellow [facility] Comment:Testing performed by : [address] [address] Clarity, ur Clear Clear [facility] Comment:Testing performed by : [address] [address] Specific gravity, ur 1.020 1.003 - 1.030 [facility] Comment:Testing performed by : [address], [place]., [address] pH, urine 6.0 [facility] Comment:Testing performed by : [address], [place]., [address] Protein, ur ql Negative Negative [facility] Comment:Testing performed by : [address], [place]., [address] Glucose, ur ql 2+(A) Negative [facility] Comment:Testing performed by : [address], [place]., [address] Ketones, ur 2+(A) Negative [facility] Comment:Testing performed by : [address], [place]., [address] Bilirubin, ur Negative Negative [facility] Comment:Testing performed by : [address], [place]., [address] Blood, ur Negative Negative [facility] Comment:Testing performed by : [address], [place]., [address] Urobilinogen, ur 4.0(A) <2.0 mg/dL [facility] Comment:Testing performed by : [address] [address] Nitrite, ur Negative Negative [facility] Comment:Testing performed by : [address] [address] Leukocyte esterase, ur Negative Negative [facility] Comment:Testing performed by : [address] [address] UA reflex comment Reflex conditions for microscopic UA and culture not met. [facility] Comment:Testing performed by : [address] [address] Urine 03/25/2023 11:0 5 PM CDT 03/25/2023 11:17 PM CDT Narrative [facility] - 03/25/2023 11:21 PM CDT ?? Urine pH is affected by diet, medications, systemic acid-base disturbances, and renal tubular function. ??pH may affect urinary stone formation. ??For example, urine pH below 6.0 may help reduce the tendency for calcium phosphate stones and pH greater than 6.0 may reduce the tendency for uric acid stone formation. Source: [facility] [employer]. Last revised 08-30-2017 Wilfred Lopez MD LAB MICROBIOLOGY - GENERAL ORDERABLES Final Result Performing Organization Address [facility] de Phone Number [id number] [place] [address] * (ABNORMAL) T3, free (03/25/2023 10:05 PM CDT) Free T3 5.4(H) 2.0 - 4.4 pg/mL ALAINA NAVA Blood 03/25/2023 10:0 5 PM CDT 03/26/2023 2:19 AM CDT Wilfred Lopez MD LAB BLOOD ORDERABLE S Final Result Performing Organization Address [facility] de Phone Number [id number] [place] [address] * Troponin T high-sensitivity 2-hour (03/25/2023 10:05 PM CDT) Pathologist [facility] Trop T hs <6 <=14 ng/L ALAINA NAVA Comment: Interpretive Data For further hscTnT resources including the diagnostic algorithm and an aid in interpretation, copy and paste this link: https://nrl.testcatalog.org/show/hsTrop Current Interpretive Data last revised 2020. Testing performed by: [address] [address] Trop T hs delta 0 ng/L ALAINA NAVA Comment:Testing performed by : [address] [address] Trop T hs interp Insignificant ALAINA NAVA Comment:Testing performed by : [address] [address] Blood 03/25/2023 10:0 5 PM CDT 03/25/2023 10:07 PM CDT Wilfred Lopez MD LAB BLOOD ORDERABLE S Final Result Performing Organization Address City/[facility] Co de Phone Number JESSICAANAM [address] [facility] [place] [address] * Influenza A/B, RSV, and COVID-19 PCR Nasopharyngeal (03/25/2023 8:37 PM CDT) COVID-19 RNA Negative Negative ALAINA Comment:Testing performed by : [address] [address] Influenza A RNA Negative Negative ALAINA Comment:Testing performed by : [address] [address] Influenza B RNA Negative Negative [facility] Comment:Testing performed by : [address] [address] RSV RNA Negative Negative [facility] Comment: Interpretive data: This test is performed using the Gate[employer] Xpress CoV-2/Flu/RSV plus assay. This is a multiplex, real-time reverse transcriptase PCR assay intended for the qualitative detection of nucleic acid from SARS-CoV-2, influenza A, influenza B, and respiratory syncytial virus. This assay has been reviewed by the FDA for Emergency Use Authorization (EUA). The performance characteristics have been verified by the performing laboratory. Results must be considered in the clinical context, and a negative result does not rule out infection. Interpretive Data last revised 2021. Testing performed by: [address] [address] Nasopharyngeal 03/25/2023 8: 37 PM CDT 03/25/2023 8:40 PM CDT Narrative ALAINA - 03/25/2023 9:18 PM CDT Is the Patient experiencing symptoms consistent with COVID?->Yes Date of Symptom Onset->03/25/23 Reason for testing?->Bed placement or semi-private room Wilfred Lopez MD LAB MICROBIOLOGY - GENERAL ORDERABLES Final Result Performing Organization Address City/[facility] Co de Phone Number ALAINA NAVA [address] [facility] Department [place] [address] * Pro B-type natriuretic peptide (03/25/2023 7:54 PM CDT) NT-proBNP 79 <=300 pg/mL ALAINA NAVA Comment: Interpretive Comments: A. Dyspnea in Acute Care Setting All Ages: ?< 300 pg/ml, acute heart failure unlikely. < 50 yrs: ?300 - 450 pg/ml, further investigation warranted. ? > 450 pg/ml, acute heart failure likely. 50 - 74 yrs: ? 300 - 900 pg/ml, further investigation warranted. ? > 900 pg/ml, acute heart failure likely . > or = 75 yrs: ? 450 - 1800 pg/ml, further investigation warranted. ? > 1800 pg/ml, acute heart failure likely. B. Non-acute Setting < 75 yrs ? < 125 pg/ml, rules out heart failure. ? > or = 125 pg/ml, further investigation warranted. > or = 75 yrs ?< 450 pg/ml, rules out heart failure. ? > or = 450 pg/ml, further investigation warranted. - Knowledge of each individual patient's NT-proBNP range may be more useful than using similar cut-points for every patient. Please note that marked elevations in NT-proBNP levels may be observed in state other than Left Ventricular Congestive Failure, including: acute coronary syndromes, right heart strain/failure (including pulmonary embolism and cor pulmonale), critical illness, renal failure, as well as advanced age. - References: 1. Susan EARL et.al. Eur Heart J. 2006:27:330-337. 2. Noemy SMITH, Power VIEYRA. J. AM Carina Cardiol: Cardiovasc Imag. 2009;2: 216- 225. Interpretive Data Last Revised Date: 2018. Testing performed by: [address] [address] Blood 03/25/2023 7:54 PM CDT 03/25/2023 8:10 PM CDT us Wilfred Lopez MD LAB BLOOD ORDERABLE S Final Result Performing Organization Address [facility] de Phone Number [id number] [place] [employer] [place] [address] * (ABNORMAL) T4, free (03/25/2023 7:54 PM CDT) Free T4 3.24(H) 0.90 - 1.70 ng/dL ALAINA Comment:Testing performed by : [facility], [address] [place] [address]., [address] Blood 03/25/2023 7:54 PM CDT 03/25/2023 8:15 PM CDT Narrative ALAINA - 03/25/2023 9:53 PM CDT This test was reflexed from a TSH result. us Wilfred Lopez MD LAB BLOOD ORDERABLE S Final Result Performing Organization Address [facility] de Phone Number [address] [address] * eGFR (03/25/2023 7:54 PM CDT) eGFR 143 mL/min/1. 73 m2 ALAINA NAVA Comment: Interpretive Data Reference Interval Normal ?>/= 90 mL/min/1.73m2 Mildly decreased* ? 60 - 89 mL/min/1.73m2 Mildly to moderately decreased ?45 - 59 mL/min/1.73m2 Moderately to severely decreased ??30 - 44 mL/min/1.73m2 Severely decreased ?15 - 29 mL/min/1.73m2 Kidney Failure ?< 15 ??mL/min/1.73m2 *Relative to young adult level Estimated glomerular filtration rate is determined by the 2020 CKD-EPI equation recommended by the National Kidney Foundation (A Unifying Approach to GFR Estimation: Recommendations of the NKF-ASK Task Force on Reassessing the Inclusion of Race in Diagnosing Kidney Disease, JASN 2020). The CKD-EPI equation should not be used for patients with unstable renal function and has not been validated in children and those over 70. Current interpretive data was last reviewed 2021. Testing performed by: [address] [address] Blood 03/25/2023 7:54 PM CDT 03/25/2023 8:10 PM CDT us Wilfred Lopez MD LAB BLOOD ORDERABLE S Final Result ALAINA [address] [facility] Department [place] [address] * Differential, auto (03/25/2023 7:54 PM CDT) Neutrophil abs 4.4 1.7 - 6.5 K/cumm ALAINA NAVA Comment:Testing performed by : [address] [address] Imm gran abs 0.0 0.0 - 0.1 K/cumm ALAINA NAVA Comment:Testing performed by : [address] [address] Lymphocyte abs 1.6 0.8 - 3.3 K/cumm ALAINA NAVA Comment:Testing performed by : [address] [address] Monocyte abs 0.8 0.2 - 0.8 K/cumm ALAINA NAVA Comment:Testing performed by : [address] [address] Eosinophil abs 0.0 0.0 - 0.5 K/cumm ALAINA Comment:Testing performed by : [address] [address] Basophil abs 0.0 0.0 - 0.1 K/cumm ALAINA Comment:Testing performed by : [address] [address] Neutrophil pct 64.4 % [facility] Comment: Interpretive Data Percent cell count reference ranges are not reported, since discordance with absolute values may lead to misinterpretation of CBC data. Current Interpretive Data was last revised on 2017. Testing performed by: [address] [address] Imm gran pct 0.3 % [facility] Comment: Interpretive Data Percent cell count reference ranges are not reported, since discordance with absolute values may lead to misinterpretation of CBC data. Current Interpretive Data was last revised on 2017. Testing performed by: [address] [address] Lymphocyte pct 22.9 % [facility] Comment: Interpretive Data Percent cell count reference ranges are not reported, since discordance with absolute values may lead to misinterpretation of CBC data. Current Interpretive Data was last revised on 2017. Testing performed by: [address] [address] Monocyte pct 11.8 % [facility] Comment: Interpretive Data Percent cell count reference ranges are not reported, since discordance with absolute values may lead to misinterpretation of CBC data. Current Interpretive Data was last revised on 2017. Testing performed by: [address] [address] Eosinophil pct 0.0 % [facility] Comment: Interpretive Data Percent cell count reference ranges are not reported, since discordance with absolute values may lead to misinterpretation of CBC data. Current Interpretive Data was last revised on 2017. Testing performed by: [address] [address] Basophil pct 0.6 % [facility] Comment: Interpretive Data Percent cell count reference ranges are not reported, since discordance with absolute values may lead to misinterpretation of CBC data. Current Interpretive Data was last revised on 2017. Testing performed by: [address] [address] Blood 03/25/2023 7:54 PM CDT 03/25/2023 8:10 PM CDT Wilfred Lopez MD LAB BLOOD ORDERABLE S Final Result Performing Organization Address [facility] Co de Phone Number [phone] [place] [employer] [place] [address] * (ABNORMAL) TSH reflex to free T4 (03/25/2023 7:54 PM CDT) TSH 0.01(L) 0.30 - 4.20 mcIUnit/mL ALAINA Comment: Ref Range Low Testing performed by: [address] [address] Blood 03/25/2023 7:54 PM CDT 03/25/2023 8:15 PM CDT us Wilfred Lopez MD LAB BLOOD ORDERABLE S Edited Result - Final Performing Organization Address [facility] de Phone Number [address] [address] * Troponin T high-sensitivity series (baseline, 2hr, 4hr, 6hr) (03/25/2023 7:54 PM CDT) Trop T hs <6 <=14 ng/L LAAINA NAVA Comment: Interpretive Data For further hscTnT resources including the diagnostic algorithm and an aid in interpretation, copy and paste this link: https://nrl.testcatalog.org/show/hsTrop Current Interpretive Data last revised 2020. Testing performed by: [address] [address] Blood 03/25/2023 7:54 PM CDT 03/25/2023 8:15 PM CDT us Wilfred Lopez MD LAB BLOOD ORDERABLE S Edited Result - Final Performing Organization Address [facility] Co de Phone Number ALAINA [address] [facility] [place] [employer] [place] [address] * (ABNORMAL) hCG, blood, quantitative (03/25/2023 7:54 PM CDT) hCG, quant 239,678.0 (H) 0.0 - 5.0 IUnits/L ALAINA NAVA Comment: Interpretive Data Non- Female premenopausal: < or = 5.0 IUnits/L Men: < 5.0 IUnits/L Weeks of Gestation ? Reference Interval ?? 3 to 6 ? 5.8-31,795 IUnits/L ?? 7 to 10 ? 3,697-186,977 IUnits/L ??12 to 15 ?27,832- 70,791 IUnits/L ??16 to 18 ? 9,040- 58,179 IUnits/L The Roxane hCG Beta Quant assay procedure was used. Results from different manufacturers or methods may not be comparable. Serial testing should be performed using the same method. Current Interpretive Data was last revised on 2021. Testing performed by: [facility], [address] [place] [address]., [address] Blood 03/25/2023 7:54 PM CDT 03/25/2023 8:10 PM CDT us Wilfred Lopez MD LAB BLOOD ORDERABLE S Final Result Performing Organization Address [facility] Co de Phone Number ALAINA [address] [facility] [employer] [place], [place] [id number] * (ABNORMAL) Comprehensive metabolic panel (03/25/2023 7:54 PM CDT) Sodium 133(L) 135 - 145 mmol/L ALAINA Comment:Testing performed by : [address] [address] Potassium, pl 3.6 3.3 - 4.9 mmol/L ALAINA Comment:Testing performed by : [address] [address] Chloride 101 97 - 110 mmol/L ALAINA Comment:Testing performed by : [address] [address] CO2 17(L) 22 - 32 mmol/L ALAINA Comment:Testing performed by : [address] [address] Anion gap 15 2 - 15 mmol/L ALAINA Comment:Testing performed by : [address] [address] BUN 7 6 - 25 mg/dL ALAINA Comment:Testing performed by : [address] [address] Creatinine 0.40(L) 0.60 - 1.10 mg/dL [facility] Comment:Testing performed by : [address] [address] Glucose 80 70 - 199 mg/dL [facility] Comment: Interpretive Data Fasting glucose >/= 126 mg/dl is diagnostic for diabetes. ?? Fasting is defined as no caloric intake for at least 8 hours. Fasting glucose between 100 mg/dl to 125 mg/dl is diagnostic of prediabetes. In a patient with classic symptoms of hyperglycemia or hyperglycemic crisis, a random glucose >/= 200 mg/dl is diagnostic for diabetes. In the absence of unequivocal hyperglycemia, results should be confirmed by repeat testing. The classification and Diagnosis of Diabetes Diabetes Care 202; 46: S19-S40. Current interpretive data was last revised 2022. Testing performed by: [address] [address] Calcium 9.8 8.5 - 10.3 mg/dL ALAINA Comment:Testing performed by : [address] [address] Bilirubin, total 0.4 0.1 - 1.2 mg/dL ALAINA Comment:Testing performed by : [address] [address] Protein, pl 7.8 6.5 - 8.5 g/dL ALAINA Comment:Testing performed by : [address], [place]., [address] Albumin 3.9 3.5 - 5.0 g/dL ALAINA Comment:Testing performed by : [address] [address] Alk phos 60 40 - 130 Units/L ALAINA Comment:Testing performed by : [address] [address] ALT 14 7 - 45 Units/L ALAINA Comment:Testing performed by : [address] [address] AST 22 10 - 45 Units/L ALAINA Comment:Testing performed by : [address] [address] Blood 03/25/2023 7:54 PM CDT 03/25/2023 8:10 PM CDT Wilfred Lopez MD LAB BLOOD ORDERABLE S Final Result [facility] Department [place] [address] * (ABNORMAL) CBC with auto differential (03/25/2023 7:54 PM CDT) Pathologist [facility] WBC 6.9 3.8 - 9.9 K/cumm ALAINA Comment:Testing performed by : [address] [address] Hgb 11.8(L) 11.9 - 15.5 g/dL ALAINA NAVA Comment:Testing performed by : [address] [address] Hct 34.9(L) 35.6 - 45.5 % ALAINA Comment:Testing performed by : [address] [place]., [address] Plt 248 150 - 400 K/cumm ALAINA NAVA Comment:Testing performed by : [address] [address] MPV 9.2 9.1 - 12.3 fL ALAINA NAVA Comment:Testing performed by : [address] [address] RBC 4.53 3.90 - 5.20 M/cumm ALAINA NAVA Comment:Testing performed by : [address] [address] MCV 77.0(L) 81.3 - 96.4 fL ALAINA Comment:Testing performed by : [address] [address] MCH 26.0(L) 27.1 - 33.3 pg ALAINA NAVA Comment:Testing performed by : [address] [address] MCHC 33.8 32.3 - 35.7 g/dL ALAINA Comment:Testing performed by : [address] [address] RDW CV 15.8(H) 11.1 - 14.9 % ALAINA Comment:Testing performed by : [address] [address] RDW SD 44.6 35.7 - 48.1 fL ALAINA Comment:Testing performed by : [address] [address] NRBC abs 0.00 0.00 - 0.01 K/cumm ALAINA Comment:Testing performed by : [address] [address] Blood 03/25/2023 7:54 PM CDT 03/25/2023 8:10 PM CDT us Wilfred Lopez MD LAB BLOOD ORDERABLE S Final Result ALAINA NAVA [address] [place] [address] Department [place] [address] * (ABNORMAL) Beta-hydroxybutyrate (03/25/2023 7:53 PM CDT) Beta-Hydroxybut yrate 0.9(H) <=0.5 mmol/L ALAINA Blood 03/25/2023 7:53 PM CDT 03/25/2023 10:27 PM CDT us Wilfred Lopez MD LAB BLOOD ORDERABLE S Final Result ALAINA [address] [facility] Department [place] [address] * ECG 12 lead (03/25/2023 7:36 PM CDT) Ventricular Rate EKG/Min 127 BPM [facility] Atrial Rate 127 BPM [facility] ME-Interval (MSEC) 124 ms [facility] QRS-Interval (MSEC) 88 ms [facility] QT-Interval (MSEC) 312 ms [facility] QTc 453 ms [facility] P [place] 62 degrees [facility] R [place] 69 degrees [facility] T [place] -51 degrees [facility] Diagnosis Sinus tachycardia T wave abnormality, consider inferior ischemia Abnormal ECG When compared with ECG of 13-OCT-2020 13:25, Vent. rate has increased BY ??63 BPM Non-specific change in ST segment in Inferior leads T wave inversion now evident in Inferior leads Nonspecific T wave abnormality now evident in Lateral leads Confirmed by TRU DOWELL M.D. ([id number]) on 03/26/2023 9:15:41 PM [facility] 03/25/2023 7:36 PM CDT 03/26/2023 9:15 PM CDT us Wilfred Lopez MD ECG ORDERABLES Fin al Result [facility] documented in this encounter Visit Diagnoses Diagnosis Sinus tachycardia- Primary Other specified cardiac dysrhythmias Hyperemesis gravidarum Mild hyperemesis gravidarum, unspecified as to episode of care Hyperthyroidism Thyrotoxicosis without mention of goiter or other cause, without mention of thyrotoxic crisis or storm Twin w problem Hyperemesis gravidarum Mild hyperemesis gravidarum, unspecified as to episode of care Palpitations Hyperthyroidism Thyrotoxicosis without mention of goiter or other cause, without mention of thyrotoxic crisis or storm SIRS (systemic inflammatory response syndrome) (HCC) Systemic inflammatory response syndrome, unspecified Hyponatremia Hyposmolality and/or hyponatremia documented in this encounter Admitting Diagnoses Diagnosis Hyperemesis gravidarum Mild hyperemesis gravidarum, unspecified as to episode of care documented in this encounter Administered Medications Inactive Administered Medications - up to 3 most recent administrations Medication Order MAR Action Action Date Dose Rate Site acetaminophen (TYLENOL) 32 mg/mL oral liquid 650 mg 650 mg, feeding tube, Every 4 hours PRN, 1st line for pain, fever, Starting on Sun03/26/23 at 0324, Administer if patient receiving meds per tube., Indications: Fever, PainIndications:Fever,Pain acetaminophen (TYLENOL) suppository 650 mg 650 mg, rectal, Every 4 hours PRN, 1st line for pain, fever, Starting on Sun03/26/23 at 0324, Administer if patient cannot tolerate enteral route., Indications: Fever, PainIndications:Fever,Pain acetaminophen (TYLENOL) tablet 650 mg 650 mg, oral, Every 4 hours PRN, 1st line for pain, fever, Starting on Sun03/26/23 at 0324, Administer if patient can swallow tablets., Indications: Fever, PainIndications:Fever,Pain Given 03/26/2023 10:26 AM CDT 650 mg Given 03/26/2023 5:37 AM CDT 650 mg dextrose 5% and sodium chloride 0.9% infusion (premix) 50 mL/hr, intravenous, Continuous, Starting on Sun03/25/23 at 2328 New Bag 03/25/2023 11:33 PM CDT 50 mL/hr 50 mL/hr dextrose 5% and sodium chloride 0.9% infusion (premix) 75 mL/hr, intravenous, Continuous, Starting on Sun03/26/23 at 0325, For 12 hours New Bag 03/26/2023 4:20 AM CDT 75 mL/hr 75 mL/hr diphenhydrAMINE (BENADRYL) 50 mg/mL injection 25 mg 25 mg, intravenous, Administer over 2 Minutes, Once, On Sun03/25/23 at 2024, For 1 dose Given 03/25/2023 8:28 PM CDT 25 mg diphenhydrAMINE (BENADRYL) 50 mg/mL injection 25 mg 25 mg, intravenous, Administer over 2 Minutes, Once, On Sun03/26/23 at 0017, For 1 dose Given 03/26/2023 12:20 AM CDT 25 mg folic acid (FOLVITE) tablet 1 mg 1 mg, oral, Daily, First dose on Sun03/26/23 at 0900 Given 03/27/2023 8:06 AM CDT 1 mg Given 03/26/2023 9:14 AM CDT 1 mg ondansetron (ZOFRAN) injection 4 mg 4 mg, intravenous, Administer over 2 Minutes, Every 6 hours PRN, nausea, vomiting, if not tolerating PO, Starting on Sun03/26/23 at 0324, Indications: Nausea and VomitingIndications:Nausea and Vomiting Given 03/26/2023 5:15 PM CDT 4 mg ondansetron ODT (ZOFRAN-ODT) disintegrating tablet 4 mg 4 mg, oral, Every 6 hours PRN, nausea, vomiting, Starting on Sun03/26/23 at 0324, Indications: Nausea and VomitingIndications:Nausea and Vomiting propranoloL (INDERAL) tablet 10 mg 10 mg, oral, Once, On Sun03/25/23 at 2245, For 1 dose Given 03/25/2023 10:22 PM CDT 10 mg propranoloL (INDERAL) tablet 10 mg 10 mg, oral, Every 8 hours scheduled, First dose on Sun03/26/23 at 0600 Given 03/27/2023 1:48 PM CDT 10 mg Given 03/27/2023 5:58 AM CDT 10 mg Given 03/26/2023 9:22 PM CDT 10 mg propylthiouraciL (PTU) tablet 50 mg 50 mg, oral, 2 times daily, First dose on Sun03/26/23 at 0915 Given 03/27/2023 8:06 AM CDT 50 mg Given 03/26/2023 9:22 PM CDT 50 mg Given 03/26/2023 9:14 AM CDT 50 mg pyridoxine (VITAMIN B-6) injection 25 mg 25 mg, intravenous, Administer over 5 Minutes, Once, On Sun03/25/23 at 2100, For 1 dose Given 03/25/2023 8:36 PM CDT 25 mg pyridoxine (VITAMIN B-6) tablet 25 mg 25 mg, oral, Every 8 hours PRN, nausea, Starting on Sun03/26/23 at 0831 sodium chloride 0.9% 0.9% infusion - ADS Override Pull Starting on Sun03/25/23 at 1943, For 1 dose, Created by cabinet override sodium chloride 0.9% bolus 1,000 mL 1,000 mL, intravenous, Once, On Sun03/25/23 at 2026, For 1 dose New Bag 03/25/2023 7:55 PM CDT 1,000 mL sodium chloride 0.9% bolus 1,000 mL 1,000 mL, intravenous, Once, On Sun03/25/23 at 2139, For 1 dose New Bag 03/25/2023 9:39 PM CDT 1,000 mL sodium chloride 0.9% bolus 1,000 mL 1,000 mL, intravenous, Once, On Sun03/25/23 at 2210, For 1 dose New Bag 03/25/2023 10:12 PM CDT 1,000 mL tc-99m macroaggregated albumin (MAA) injection 2.6 millicurie 2.6 millicurie, intravenous, Once in imaging, radiopharmaceutical, Starting on Sun03/26/23 at 1113, For 1 dose, Indications: Diagnostic RadiographyIndications:Diagnostic Radiography Given 03/26/2023 11:13 AM CDT 2.6 millicuries documented in this encounter Discontinued Medications Medication Sig Discontinue Reason Start Date End Da te propranoloL (INDERAL) 10 mg tablet Take 1 tablet (10 mg total) by mouth every 8 (eight) hours Reorder 03/27/2023 03/27/2023 propylthiouraciL (PTU) 50 mg tablet Take 1 tablet (50 mg total) by mouth 2 (two) times a day Reorder 03/27/2023 03/27/2023 lamoTRIgine (LaMICtal) 25 mg tablet Take 1 tab nightly for 14 days, then 1 tab twice daily for 14 days, then 2 tabs twice daily for 7 days, then 3 tabs twice daily for 7 days, then 4 tabs twice daily Stop Taking at Discharge 03/06/2023 03/27/2023 documented as of this encounter Active and Recently Administered Medications Times are shown in CDT. Scheduled Medication Order 03/25/2023 03/26/2023 03/27/2023 diphenhydrAMINE (BENADRYL) 50 mg/mL injection 25 mg (COMPLETED) 25 mg, intravenous, Administer over 2 Minutes, Once, On 03/25/23 at 2024, For 1 dose 2027 (Given - Provider: Cody Muñiz RN) diphenhydrAMINE (BENADRYL) 50 mg/mL injection 25 mg (COMPLETED) 25 mg, intravenous, Administer over 2 Minutes, Once, On Sun03/26/23 at 0017, For 1 dose 0020 (Given - Provider: Phil Jacob RN) folic acid (FOLVITE) tablet 1 mg 1 mg, oral, Daily, First dose on Sun03/26/23 at 0900 0914 (Given - Provider: Dalila Alexander RN) 08 (Given - Provider: Dalila Alexander RN) propranoloL (INDERAL) tablet 10 mg (COMPLETED) 10 mg, oral, Once, On 03/25/23 at 2245, For 1 dose 2221 (Given - Provider: Phil Jacob RN) propranoloL (INDERAL) tablet 10 mg 10 mg, oral, Every 8 hours scheduled, First dose on Sun03/26/23 at 0600 0537 (Given - Provider: Jie Alex RN)1342 (Given - Provider: Dalila Alexander RN)212 (Given - Provider: Kaleb Castrejon, RN) 0558 (Given - Provider: Kaleb Castrejon, RN)1348 (Given - Provider: Dalila Alexander, OCTAVIO) propylthiouraciL (PTU) tablet 50 mg 50 mg, oral, 2 times daily, First dose on Sun03/26/23 at 0915 0914 (Given - Provider: Dalila Alexander RN)212 (Given - Provider: Kaleb Castrejon, RN) 0806 (Given - Provider: Dalila Alexander, OCTAVIO) pyridoxine (VITAMIN B-6) injection 25 mg (COMPLETED) 25 mg, intravenous, Administer over 5 Minutes, Once, On 03/25/23 at 2100, For 1 dose 2035 (Given - Provider: Phil Jacob RN) sodium chloride 0.9% bolus 1,000 mL (COMPLETED) 1,000 mL, intravenous, Once, On 03/25/23 at 2025, For 1 dose 1954 (New Bag - Provider: Cody Muñiz RN)2053 (Stopped - Provider: Phil Jacob RN) sodium chloride 0.9% bolus 1,000 mL (COMPLETED) 1,000 mL, intravenous, Once, On Sun03/25/23 at 2139, For 1 dose 2138 (New Bag - Provider: Phil Jacob RN)2204 (Stopped - Provider: Phil Jacob RN) sodium chloride 0.9% bolus 1,000 mL (COMPLETED) 1,000 mL, intravenous, Once, On 03/25/23 at 2210, For 1 dose 2211 (New Bag - Provider: Phil Jacob RN)2338 (Stopped - Provider: Phil Jacob RN) Continuous Medication Order 03/25/2023 03/26/2023 03/27/2023 dextrose 5% and sodium chloride 0.9% infusion (premix) (CANCELED) 50 mL/hr, intravenous, Continuous, Starting on 03/25/23 at 2328 2333 (New Bag - Provider: Phil Jacob RN) dextrose 5% and sodium chloride 0.9% infusion (premix) () 75 mL/hr, intravenous, Continuous, Starting on Sun03/26/23 at 0325, For 12 hours 0420 (New Bag - Provider: Jie Alex RN)1651 (Stopped - Provider: Dalila Alexander, OCTAVIO) PRN Medication Order 03/25/2023 03/26/2023 03/27/2023 acetaminophen (TYLENOL) 32 mg/mL oral liquid 650 mg(Linked Group 1) 650 mg, feeding tube, Every 4 hours PRN, 1st line for pain, fever, Starting on Sun03/26/23 at 0324, Administer if patient receiving meds per tube., Indications: Fever, Pain 0537 (See Alternative - Provider: Jie Alex RN)1026 (See Alternative - Provider: Dalila Alexander, OCTAVIO) acetaminophen (TYLENOL) suppository 650 mg(Linked Group 1) 650 mg, rectal, Every 4 hours PRN, 1st line for pain, fever, Starting on Sun03/26/23 at 0324, Administer if patient cannot tolerate enteral route., Indications: Fever, Pain 0537 (See Alternative - Provider: Jie Alex, OCTAVIO)1026 (See Alternative - Provider: Dalila Alexander, OCTAVIO) acetaminophen (TYLENOL) tablet 650 mg(Linked Group 1) 650 mg, oral, Every 4 hours PRN, 1st line for pain, fever, Starting on Sun03/26/23 at 0324, Administer if patient can swallow tablets., Indications: Fever, Pain 0537 (Given - Provider: Jie Alex, OCTAVIO)1026 (Given - Provider: Dalila Alexander, OCTAVIO) bisacodyL (DULCOLAX) suppository 10 mg 10 mg, rectal, Daily PRN, constipation, Starting on Sun03/26/23 at 0324, Indications: constipation ondansetron (ZOFRAN) injection 4 mg(Linked Group 2) 4 mg, intravenous, Administer over 2 Minutes, Every 6 hours PRN, nausea, vomiting, if not tolerating PO, Starting on Sun03/26/23 at 0324, Indications: Nausea and Vomiting 1715 (Given - Provider: Dalila Alexander, OCTAVIO) ondansetron ODT (ZOFRAN-ODT) disintegrating tablet 4 mg(Linked Group 2) 4 mg, oral, Every 6 hours PRN, nausea, vomiting, Starting on Sun03/26/23 at 0324, Indications: Nausea and Vomiting 1715 (See Alternative - Provider: Dalila Alexander, OCTAVIO) pyridoxine (VITAMIN B-6) tablet 25 mg 25 mg, oral, Every 8 hours PRN, nausea, Starting on Sun03/26/23 at 0831 tc-99m macroaggregated albumin (MAA) injection 2.6 millicurie (COMPLETED) 2.6 millicurie, intravenous, Once in imaging, radiopharmaceutical, Starting on Sun03/26/23 at 1113, For 1 dose, Indications: Diagnostic Radiography 1113 (Given - Provider: Tana Hankins, RT) Linked Groups Order Group 1: acetaminophen (TYLENOL) tablet 650 mgJump to med 650 mg, oral, Every 4 hours PRN, 1st line for pain, fever, Starting on Sun03/26/23 at 0324, Administer if patient can swallow tablets., Indications: Fever, Pain Or acetaminophen (TYLENOL) 32 mg/mL oral liquid 650 mgJump to med 650 mg, feeding tube, Every 4 hours PRN, 1st line for pain, fever, Starting on Sun03/26/23 at 0324, Administer if patient receiving meds per tube., Indications: Fever, Pain Or acetaminophen (TYLENOL) suppository 650 mgJump to med 650 mg, rectal, Every 4 hours PRN, 1st line for pain, fever, Starting on Sun03/26/23 at 0324, Administer if patient cannot tolerate enteral route., Indications: Fever, Pain Group 2: ondansetron ODT (ZOFRAN-ODT) disintegrating tablet 4 mgJump to med 4 mg, oral, Every 6 hours PRN, nausea, vomiting, Starting on Sun03/26/23 at 0324, Indications: Nausea and Vomiting Or ondansetron (ZOFRAN) injection 4 mgJump to med 4 mg, intravenous, Administer over 2 Minutes, Every 6 hours PRN, nausea, vomiting, if not tolerating PO, Starting on Sun03/26/23 at 0324, Indications: Nausea and Vomiting documented in this encounter Orders Medications Ordered That Owen ht Not Have Been Administered Count Last Ordered Date First Ordered Date acetaminophen (TYLENOL) 32 m g/mL oral liquid 650 mg 1 03/26/2023 acetaminophen (TYLENOL) suppository 650 mg 1 03/26/2023 bisacodyL (DULCOLAX) suppository 10 mg 1 ondansetron ODT (ZOFRAN-ODT) disintegrating tablet 4 mg 1 03/26/2023 pyridoxine (VITAMIN B-6) tablet 25 mg 1 02/2023 Diet Count Last Ordered Date First Orde red Date ADULT DISCHARGE DIET 1 03/27/2023 Nursing Count Last Ordered Date First Orde red Date DISCHARGE ACTIVITY 1 03/27/2023 DISCHARGE CALL PROVIDER 7 03/27/2023 ACTIVITY 1 03/26/2023 CONTINUOUS PULSE OXIMETRY 1 03/26/2023 NOTIFY PROVIDER (SPECIFY) 1 03/26/[address]23 PLACE SEQUENTIAL COMPRESSION DEVICE 1 03/26 TELEMETRY MONITORING 1 03/26/2023 WEIGH PATIENT 1 03/26/2023 Consult Count Last Ordered Date First Orde red Date IP CONSULT TO NUTRITION SERVICES 1 03/26/20 IP CONSULT TO SOCIAL WORK 1 03/26/2023 IP CONSULT TO PRICING/SIGNAGE TEAM MEMBER 1 03/25/2023 Admission Count Last Ordered Date First Orde red Date ADMIT TO INPATIENT 1 03/26/2023 Transfer Count Last Ordered Date First Orde red Date ED TO FLOOR BED REQUEST 1 03/26/2023 Discharge Count Last Ordered Date First Orde red Date DISCHARGE PATIENT 1 03/27/2023 CORE MEASURES Count Last Ordered Date First Ord ered Date REASON FOR NO VTE PROPHYLAXI S - HOSPITAL ADMISSION - MEDICATIONS 1 03/26/2023 documented in this encounter Additional Health Concerns Infection Onset Date Last Indicated Resolved Time COVID: Suspected 03/25/2023 03/25/2023 03/25/2023 9:19 PM CDT documented as of this encounter Care Teams Accordion Tuner Relationship Specialty Start Date End Date Unknown, Notinfile PCP - General 10/20/22 Unknown, Notinfile 07/12/21 documented as of this encounter
--- OUTSIDE RECORDS SUMMARY | 2024-08-05 00:20 | XMS_ITS | Encounter Summary ---
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) Other fatigue Other iron deficiency anemia Janeth Ronquillo MD [address] [facility] [place] [phone] [place] [address] Phone: tel: fax: [facility] Epilepsy [address] [place] [address] [place] [address] Phone: tel: fax: Referral ID Status Reason Start Date Expiration Date V isits Requested Visits Authorized [id number] Closed Specialty Services Required 02/22/2023 03/23/2024 1 1 Question Answer Please select the performing region: [facility] (All Locations) [167] # of visits: 1 Comments Transition to adult care Reason for Visit * Reason Onset Date Comments adult neurology 02/22/2023 Encounter Details Date Type Department Care Team (Late st Contact Info) Description 02/22/2023 Telephone [facility] Pediatric Neurology [address] [place] [phone] Janeth Ronquillo MD [address] [phone] [place] [address] adult neurology Social History Tobacco Use Types Packs/Day Years [...] on file Legal Sex Female 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 * Telephone Encounter - Paris Simeon - 02/22/2023 11:53 AM CDT Images from the original note were not included. Routing comments copied: Janeth Ronquillo MD Wille, Jennifer M Caller: Unspecified (Today, 10:57 AM) Absolutely; thank you. MB * Telephone Encounter - Paris Simeon - 02/22/2023 11:[address] Ronquillo - okay to provider referral to adult neurology? * Telephone Encounter - Eladia Toth - 02/22/2023 10:57 AM CDT Yg Reason for call: Patient would like a referral to the Adult Neurology group Is return call requested? No. Recent appointment: 12/28/2021, Visit date not found Follow up appointment: 05/08/2023 Current Outpatient Medications: DULoxetine DR, 60 mg, oral, Daily DULoxetine DR, hydrOXYzine, ondansetron, 4 mg, oral, Q6H OXcarbazepine, One and a half tablets PO BID pantoprazole DR, 40 mg, oral, Daily documented in this encounter Plan of Treatment Scheduled Referrals Name Type Priority Associated Diagnoses Order Schedule Ambulatory referral to Neurology Outpatient Referral Routine Localization-relate d focal epilepsy with simple partial seizures (CMS/HCC) (HCC) Other fatigue Other iron deficiency anemia Expected: 03/08/2023 (Approximate), Expires: 02/23/2024 documented as of this encounter Visit Diagnoses Diagnosis 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
--- OUTSIDE RECORDS SUMMARY | 2024-08-05 00:20 | XMS_ITS | Encounter Summary ---
Author Organization [facility] Address [address] [place] [address] Phone Care Team Providers Care Electrical Design Technologist Name Role Phone Unknown, Notinfile Unavailable Unavailable Unknown, Notinfile Primary Care Provider Unavail able Reason for Referral * Neurology (Routine) - Closed Specialty Diagnoses / Procedures Referred By Mavis carreon Referred To Contact Diagnoses Seizure-like activity (HCC) Procedures Ambulatory EEG -[facility] Ambulatory EEG -[facility] (All Locations) Albert Ceballos MD [address] [facility] [address] [place] [address] Phone: tel: fax: [address] [phone] Referral ID Status Reason Start Date Expiration Date Visits Re quested Visits Authorized [id number] Closed 10/26/2023 11/24/2024 1 1 HANT KEEPER * Consultation (Routine) - Closed Specialty Diagnoses / Procedures Referred By Mavis carreon Referred To Contact Neurology Diagnoses Seizure-like activity (HCC) Albert Ceballos MD 1 [facility] [address] [place] [address] Phone: tel: fax: [facility] [address] [facility] [address] [place] [address] Phone: tel: fax: Referral ID Status Reason Start Date Expiration Date V isits Requested Visits Authorized [id number] Closed Specialty Services Required 10/26/2023 11/24/2024 1 1 Question Answer Please select the performing region: [facility] [[id number]] Please select the performing department: [facility] NEUROLOGY [[id number]] # of visits: 1 HANT KEEPER Encounter Details Date Type Department Care Team (Late st Contact Info) Description 10/26/2023 Telephone [facility] Epilepsy [address] [facility] [address] [place] [address] [place] [phone] Albert Ceballos MD [address] [facility] [address] [place] [address] Social History Tobacco Use Types Packs/Day Years [...] often do you attend chur ch or moravian services? More than 4 times per year 03/26/2023 Do you belong to any clubs o r organizations such as synagogue groups, unions, fraternal or athletic groups, or [...] money to buy more. Never true 03/26/20 Within the past 12 months, t he [...] place to sleep or slept in a [facility] (including now)? No 03/26/2023 Personal Safety Answer Date Recorded Have you ever been in or are you currently in a harmful physical or emotional relationship or is someone making you feel afraid or unsafe? 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 file documented as of this encounter Miscellaneous Notes * Addendum Note - Albert Ceballos MD - 10/26/2023 2:18 PM CSTAddended by: ALBERT CEBALLOS on: 10/26/2023 02:18 PM Modules accepted: Orders HANT KEEPER * Addendum Note - Allyson Guidry RN - 10/26/2023 1:05 PM CSTAddended by: ALLYSON GUIDRY on: 10/26/2023 01:05 PM Modules accepted: Orders HANT KEEPER * Addendum Note - Albert Ceballos MD - 10/26/2023 12:05 PM CSTAddended by: ALBERT CEBALLOS on: 10/26/2023 12:05 PM Modules accepted: Orders HANT KEEPER * Telephone Encounter - Allyson Guidry RN - 10/26/2023 11:27 AM ELEPHANT KEEPER Lorri Márquez called from [facility]. She reports she had a seizure yesterday while at work. She was still admitted at the time of the call and said she had an EEG and Brain MRI earlier today. She said she was started on LEV bid but did not know the dose. She was calling to get a referral to the [facility]. She cancelled her health insurance stating the cost was to great for her family. She reported her event happened at work at 950 AM. She remained aware but could not speak. She states her whole body was shaking except her left leg. She had not been feeling well and went to an Sunday night. She was told she probably had a viral infection. She has a two year old and 3 month oldtwins[address] referral to [facility]? Additional recommendations for Lorri at this time? Thank you, Allyson HANT KEEPER documented in this encounter Plan of Treatment Scheduled Referrals Name Type Priority Associated Diagnoses Order Schedule Ambulatory referral to Neurology Outpatient Referral Routine Seizure-like activity (HCC) Expected: 11/09/2023 (Approximate), Expires: 10/25/2024 documented as of this encounter Results * Ambulatory EEG -[facility] (12/01/2023 3:43 PM CDT) Anatomical Region Laterality Modality EEG Narrative 12/01/2023 3:43 PM CDT Ambulatory EEG Report Patient Name: Lorri Ernandez [facility] Medical Record Number (MRN): [id number] [facility] Record: [id number] Date of (): 2000 EEG Date: 11/29/2023 Ordering Provider: Albert Ceballos MD CC: Unknown, Notinfile Start Time: 11/29/2023 3:33:51 PM ? End Time: 11/30/2023 3:48:26 PM Introduction: Ms. Ernandez is a 23 y.o. female with a history of chest pain, palpitations, and syncope, presenting with seizure-like activity. EEG was performed to evaluate for seizures. This is a 24 channel EEG recording acquired on a Lingorami digital ambulatory EEG acquisition system. Scalp electrodes [...] intent. Signing Attending: Ankush Westfall MD Albert Ceballos MD NEUROLOGY ORDERABLES Fin al Result documented in this encounter Visit Diagnoses Diagnosis Seizure-like activity (HCC)- Primary Seizure-like activity (HCC) documented in this encounter Care Teams Electrical Design Technologist Relationship Specialty Start Date End Date Unknown, Notinfile PCP - General 10/20/22 Unknown, Notinfile 07/12/21 documented as of this encounter
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
--- OUTSIDE RECORDS SUMMARY | 2024-08-05 00:20 | XMS_ITS | Encounter Summary ---
Author Organization [facility] Medical Group Address [address] [place] [address] Care Team Providers Care Industrial Sales Representative Name Role Phone Krystal Castrejon MD Primary Care Pro vider Unknown, Notinfile Unavailable Unavailable Encounter Details Date Type Department Care Team (Late st Contact Info) Description 07/12/2022 Orders Only [facility] Health Information Management [address] [place] [address] Scanning, Provider Social History Tobacco Use Types Packs/Day Years [...] file Legal Sex Female 6:22 AM FITNESS SUPERVISOR Gender Identity Female 03/11/2020 1:47 PM CDT Sexual Orientation Straight 03/11/2020 1: 47 PM CDT 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 on file documented as of this encounter Plan of Treatment Not on file documented as of this encounter Procedures Procedure Name Priority Date/Time Associated Diagnosis Comments SCAN - RADIOLOGY/IMAGING 07/12/2022 9:24 PM FITNESS SUPERVISOR documented in this encounter Results * SCAN - RADIOLOGY/IMAGING (07/12/2022 9:24 PM FITNESS SUPERVISOR) Anatomical Region Laterality Modality Other us Provider Scanning Final Result documented in this encounter Visit Diagnoses Not on filedocumented in this encounter Care Teams Industrial Sales Representative Relationship Specialty Start Date End Date Krystal Castrejon MD PCP - General Family Medicine 07/12/21 10/19/22 Unknown, Notinfile 07/12/21 documented as of this encounter
--- OUTSIDE RECORDS SUMMARY | 2024-08-05 00:20 | XMS_ITS | Encounter Summary ---
Author Organization [facility] Address [address] [place] [address] Phone Care Team Providers Care Parts Fabricator Name Role Phone Unknown, Notinfile Unavailable Unavailable Unknown, Notinfile Primary Care Provider Unavail able Encounter Details Date Type Department Care Team (Late st Contact Info) Description 09/21/2023 9:30 AM LICENSED FINAL EXPENSE AGENTS Telemedicine [facility] Epilepsy [address] [place] [address] Albert Ceballos MD [address] [place] [address] Seizure-like activity (HCC) (Primary Dx) [...] often do you attend chur ch or orthodox services? More than 4 times per year 03/26/2023 Do you belong to any clubs o r organizations such as christian groups, unions, fraternal or athletic groups, or [...] place to sleep or slept in a mcc (including now)? No 03/26/2023 Personal Safety Answer Date Recorded Have you ever been in or are you currently in a harmful physical or emotional relationship or is someone making you feel afraid or unsafe? 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 During the visit, I was located in the office and the patient was located at her home in the [facility]. The patient visit started at 9:32 and ended at 10:00. My total encounter time on 09/21/2023 was 35 minutes which was spent in the activities documented in the note. This includes time spent prior to the visit and after the visit in direct care of the patient. This time does not include time spent in any separately reportable services. The patient: has been informed that the visit may not be secure and acknowledged the information. After being given an opportunity to ask questions about and discuss this type of visit, they verballyconsented to proceeding with the telephone/video visit and understand that this service replaces anoffice visit. Name: Lorri Ernandez Date of : 2000 PCP: Unknown, Notinfile Date: 09/21/2023 Provider: Albert Ceballos MD Interval History: Underwent at 30 weeks on July 31. When the twins were born she forgot to take her medications for a week and a half and then when she remembered she did not restart. She has been off the medication since discharge from the hospital. She has been doing well off the medication. She has headaches but has not had any of her auras or seizures or seizure-like activity. Last event, of uncertain etiology, was January 2023. She had COVID-19 in August with a high fever and did not have any events. She reports issues with forgetting things starting two years ago, happening randomly, with registering information that she was told. Sometimes she forgets where things are placed. She is on maternity leave but is returning to work next week. HISTORY OF PRESENT ILLNESS Lorri Ernandez is a 23 y.o. right-handed female who is self-referred for evaluation of events concerning for seizures. At the time of initial evaluation, she is 10 weeks with twins (notes notavailable). Patient is unaccompanied at this encounter She previously followed with Dr. Ronquillo at [facility] with whom she established care in 10/2015. [...] an event. For example, she moved from [place] to [place]. She was encouraged to re-start oxcarbazepine, which was gradually titrated over time to 450mg twicedaily. At that dose, she noted occasionally a little tightness on the religion lasting 30 seconds, which she characterized as [...] on hydroxyzine as needed. No new illnesses. Heavin is sleeping ok. She is not using [...] and was admitted for three days at [facility]. She did not have urinary incontinence or [...] pen with her so she went to [facility]. She received 1 shot of epinephrine while there. EMS was called. There was no redness or rashes. Then shebegan to have uncontrollable shaking. EMS noted patient was awake and talking during these shaking spells. Patient reported feeling anxious. She estimated having 30 events in a row. She was taken to [facility] and evaluated. 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 No recreational drug use. 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 OBJECTIVE Vital Signs Vitals LMP (LMP Unknown) General: The patient appeared well developed, well nourished and well groomed. HEENT: Normocephalic and atraumatic. Oropharynx was clear. Conjunctivae were clear. Pulmonary: Symmetric rise and fall of chest wall. No accessory muscle usage observed. Extremities: No edema. Normal. Skin: Normal Mental Status: The patient was alert and oriented to self, person, and place. Attends to examiner. Good recall of personal information. Responds appropriately to questions. Cranial Nerves: Pupils equal and regular. Nearly full range of extraocular movements in cardinal directions of gaze although impairments on convergence. Strabismus present. Able to see examiner. No facial asymmetry. Able to hear examiner. Palate elevates symmetrically. Tongue protrudes midline. Motor: Bulk was normal. Antigravity in all 4 extremities. No dysarthria. Coordination: Able to hold phone in hand and coordinate telemedicine encounter without impairment. Physical Exam General: The patient appeared well [...] 03/26/2023 BILITOT 0.3 03/26/2023 Imaging/Studies: Routine EEG [facility] 10/2015: Interpretation: This awake and asleep EEG is normal for the patient's age. The patient had multiple clinical events including a period of nonresponsiveness, jerking in the sleep, which did not represent seizure activity. MRI brain [facility] 10/2015: IMPRESSION: No findings to explain the patient's seizures. 05/13/21: Interpretation: This is a normal awake and stage I and II sleep extended EEG. Of note, a normal EEG does not rule out seizure/epilepsy. DEXA: none Assessment 22 y/o RH with a historical diagnosis of suspected focal epilepsy presenting for the evaluation of non-specific paroxysmal events. Historically, she differentiates between 4 different types of eventsas described in the notes. Prior MRI was [...] does have risk factors for psychogenic non-epileptic events and has had NEE confirmed on remote EEG in 2016. Suspicion for a diagnosis of epilepsy is low andseth is not actively having events so additional diagnostic evaluation is not clinically indicated at this time. Plan - will pursue ambulatory EEG if she has additional events concerning for seizures - re-emphasized establishing care with a clinical therapist for pursuit of cognitive behavioral therapy for suspected psychogenic non-epileptic events - re-emphasized establishing care with PCP - RTC 6 months to ensure no breakthrough seizure-like activity, then follow up as needed What is the patient's current mean epileptic seizure frequency? Uncertain NSED FINAL EXPENSE AGENTS documented in this encounter Miscellaneous Notes * Addendum Note - Albert Ceballos MD - 09/21/2023 9:30 AM CSTAddended by: ALBERT CEBALLOS on: 09/21/2023 10:08 AM Modules accepted: Orders NSED FINAL EXPENSE AGENTS documented in this encounter Plan of Treatment Not on file documented as of this encounter Visit Diagnoses Diagnosis Seizure-like activity (HCC)- Primary documented in this encounter Discontinued Medications Medication Sig Discontinue Reason Start Date End Da te acetaminophen (TYLENOL) 325 mg tabletIndications:Fever ,Pain Take 2 tablets (650 mg total) by mouth every 4 (four) hours as needed for pain, headaches or fever 03/27/2023 09/21/2023 calcium carb/D3/magnesium/zinc (calcium carb-D3-mag [id number]) [id number] mh-urkj-qo-mg tablet Take 3 tablets by mouth daily 09/21/2023 folic acid (FOLVITE) 1 mg tablet Take 1 tablet (1 mg total) by mouth daily 03/01/2023 09/21/2023 lamoTRIgine (LaMICtal) 25 mg tablet Take 6 [...] THEN, 150mg (6 tabs) twice daily thereafter. 05/07/2023 09/21/2023 methIMAzole (TAPAZOLE) 5 mg tablet Take 0.5 tablets (2.5 mg total) by mouth 2 (two) times a day 04/18/2023 09/21/2023 ondansetron (ZOFRAN) 4 mg tablet Take 1 tablet (4 mg total) by mouth every 6 (six) hours 10/20/2022 09/21/2023 [id number]-csal-vqjsa acid 29 mg iron- 1 mg tablet,chewable Take 1 tablet by mouth daily 09/21/2023 propranoloL (INDERAL) 10 mg tablet Take 1 tablet (10 mg total) by mouth every 8 (eight) hours 03/27/2023 09/21/2023 propylthiouraciL (PTU) 50 mg tablet Take 1 tablet (50 mg total) by mouth 2 (two) times a day 03/27/2023 09/21/2023 sertraline (ZOLOFT) 25 mg tablet Take 1 tablet (25 mg total) by mouth daily 04/18/2023 09/21/2023 documented as of this encounter Care Teams Parts Fabricator Relationship Specialty Start Date End Date Unknown, Notinfile PCP - General 10/20/22 Unknown, Notinfile 07/12/21 documented as of this encounter
--- OUTSIDE RECORDS SUMMARY | 2024-08-05 00:20 | XMS_ITS | Referral Summary ---
Author Organization [facility] Address [address] [place] [address] Phone Care Team Providers Care Art Gallery Director Name Role Phone Unknown, Notinfile Unavailable Unavailable Unknown, Notinfile Primary Care Provider Unavail able Allergies Active Allergy Reactions Criticality Noted Date Comments Ceftriaxone Dizziness,Other (See comments) Low 11/07/2020 Dizziness/Light Headed numbness Depo-Provera Contraceptive Anaphylaxis High 12/23/2021 Throat closes Medroxyprogest-Estradio l Cyp Unknown 09/05/2021 Penicillin V Anaphylaxis High 07/21/2020 Wasp Venom Anaphylaxis High 07/21/2020 Medications [id number]-vkjvb acid 29 mg iron- 1 mg tablet,chewable [...] 03/12/2020 Assessment & Plan (07/13/2021 8:50 AM BONE GLUE MAKER): Follows with neurology, reviewed notes Continue trileptal Major depression in remission 03/12/2020 Assessment & Plan (07/12/2021 3:14 PM BONE GLUE MAKER): Stable Continue cymbalta PTSD (post-traumatic stress disorder) 03/12/2020 Immunizations Name Administration Dates Next Due Influenza, Quadrivalent, Spl it, Preservative Free, Intramuscular 05/14/2021 Tdap 02/16/2021 Social History Tobacco Use Types Packs/Day Years [...] week 03/26/2023 How often do you attend [facility] or orthodoxy services? More than 4 times per year 03/26/2023 Do you belong to any clubs o r organizations such as yazidi groups, unions, fraternal or athletic groups, or [...] place to sleep or slept in a intermediate (including now)? 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 GONORRHOEAE/C. TRACHOMATIS AMPLIFICATION TEST Routine 06/23/2020 5:50 AM BONE GLUE MAKER from Last 3 Months or Most Recently Relevant to Health Maintenance Results * N. gonorrhoeae/C. trachomatis amplification test (06/23/2020 5:50 AM BONE GLUE MAKER) Pathologist [facility] C. trachomatis RNA TNP [facility] N. gonorrhoeae RNA TNP [facility] Chlamydia/GC Source URINE [facility] Comment: This assay detects Chlamydia trachomatis and Neisseria gonorrhoeae by nucleic acid amplification testing (NAAT). Disclaimer: This Test is not FDA approved in females less than 14 years of age and in males less than 17 years of age. All positive CT/NG results on non-FDA approved pediatric age group patients have been confirmed positive by repeat testing. 06/23/2020 5:50 AM BONE GLUE MAKER 06/23/2020 7:05 AM BONE GLUE MAKER Narrative [facility] - 06/23/2020 7:07 AM BONE GLUE MAKER Urine collection method First catch lessthan 50ml Collected By oh Urine Resulting Agency Comment ER us Blanca Casey DO LAB MICROBIOLOGY - GENERAL [place] [address], [facility] [phone] from Last 3 Months or Most Recently Relevant to Health Maintenance Insurance BLUE ACCESS ID [facility] [employer] Advance Directives For more information, please contact: [phone] * Full Code (Latest Code Status on File) Date Activated Date Inactivated Comments 03/26/2023 3:25 AM 03/27/2023 5:51 PM Care Teams Art Gallery Director Relationship Specialty Start Date End Date Unknown, Notinfile PCP - General 10/20/22 Unknown, Notinfile 07/12/21
--- OUTSIDE RECORDS SUMMARY | 2024-08-05 00:20 | XMS_ITS | Encounter Summary ---
Author Organization [facility] Healthcare Address [address] [place] [address] Care Team Providers Care Community Facilitator Name Role Phone Unknown, Notinfile Unavailable Unavailable Unknown, Notinfile Primary Care Provider Unavail able Reason for Visit * Reason Comments Vomiting Blood Encounter Details Date Type Department Care Team (Late st Contact Info) Description 10/20/2022 3:47 AM [facility] - 10/20/2022 8:47 AM [facility] Emergency [facility] Emergency Department [address] [place] [address] Hugh Hair II, MD [address] [place] [address] [place] [address] Kerry-Rivas tear (Primary Dx); Acute cystitis without hematuria; Iron deficiency Discharge Disposition: Discharge to home or self [...] on file Legal Sex Female 6:22 AM [facility] Gender Identity Female 03/11/2020 1:47 PM CDT Sexual Orientation Straight 03/11/2020 1: 47 PM CDT 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 on file documented as of this encounter Last Filed Vital Signs Vital Sign Reading Time Taken Comments Blood Pressure 110/61 10/20/2022 8:40 AM [facility] [employer] [facility] Pulse 81 10/20/2022 8:40 AM [facility] [employer] Temperature 36.4 ??C (97.6 ??F) 10/20/2022 3:36 AM CS T Respiratory Rate 30 10/20/2022 8:40 AM [facility] [employer] Oxygen Saturation 96% 10/20/2022 8:40 AM [facility] [employer] [facility] Inhaled Oxygen Concentration - - Weight 53.2 kg (117 lb 4.6 oz) 10/20/2022 3:36 A M [facility] Height - - Body Mass Index 20.78 12/28/2021 11:13 AM CDT documented in this encounter Discharge Instructions * Discharge Instructions* Hugh Hair II, MD - 10/20/2022 8:22 AM [facility] Restart your iron pills. [facility] documented in this encounter Medications at Time of Discharge sulfamethoxazole- trimethoprim (BACTRIM DS) 800-160 mg per tablet Take 1 tablet by mouth 2 (two) times a day for 7 days smx-tmp DS (BACTRIM) 800-160 mg tabs 14 tablet 10/20/2022 10/27/[address] (CYMBALTA) 30 mg capsule Take 60 mg by mouth daily 03/01/[address] (CYMBALTA) 60 mg capsule 10/15/2021 03/01/2023 hydrOXYzine (ATARAX) 25 mg tablet 10/15/2021 03/01/2023 ondansetron (ZOFRAN) 4 mg tablet Take 1 tablet (4 mg total) by mouth every 6 (six) hours 12 tablet 10/20/2022 09/21/2023 OXcarbazepine (TRILEPTAL) 300 mg tablet One and a half tablets PO BID 270 tablet 3 12/28/2021 03/01/[address] (PROTONIX) 20 mg EC tabletIndications :Treatment of Non-Bleeding Gastric Disorder Take 2 tablets (40 mg total) by mouth daily 20 tablet 10/20/2022 03/01/2023 documented as of this encounter Ordered Prescriptions Prescription Sig Dispense Quantity Refills Last Filled Start Date End Date pantoprazole DR (PROTONIX) 20 mg EC tabletIndications: Treatment of Non-Bleeding Gastric Disorder Take 2 tablets (40 mg total) by mouth daily 20 tablet 10/20/2022 3 sulfamethoxazole-t rimethoprim (BACTRIM DS) 800-160 mg per tablet Take 1 tablet by mouth 2 (two) times a day for 7 days smx-tmp DS (BACTRIM) 800-160 mg tabs 14 tablet 10/20/2022 3 ondansetron (ZOFRAN) 4 mg tablet Take 1 tablet (4 mg total) by mouth every 6 (six) hours 12 tablet 10/20/2022 4 documented in this encounter Discharge Disposition Disposition Code Departure Means Destination Comment s Discharge to home or self care documented in this encounter ED Notes * Tiffanie Giron RN - 10/20/2022 7:04 AM CST Received report from Angely [place]. Patient here with emesis x 1. All tests resulted. Waiting for furtherorders from provider vs disposition. Tiffanie Giron RN 10/20/22 0704 [facility] * Hugh Hair II, MD - 10/20/2022 6:24 AM CST HPI Chief Complaint Patient presents with Vomiting Blood Patient had 1 episode of emesis this morning with some blood. Patient is complaining of some abdominal pain. Patient presents emergency room for evaluation. 8:23 AM Lorri Ernandez is a 22 y.o. female presenting to the ED c/o Patient History: Past Medical History: Diagnosis Date Allergic rhinitis Anemia Anxiety Depression Heart murmur Jaundice Migraines Seizures (CMS/HCC) (HCC) Urinary tract infection Past Surgical History: [...] Partners: Male Alcohol Use: Not on file These factors certainly contributing to social determinants of health No current facility-administered medications for this encounter. Current Outpatient Medications: DULoxetine DR (CYMBALTA) [address] (CYMBALTA) 60 mg capsule hydrOXYzine (ATARAX) 25 mg tablet ondansetron (ZOFRAN) 4 mg tablet OXcarbazepine (TRILEPTAL) [address] (PROTONIX) 20 mg EC tablet sulfamethoxazole-trimethoprim (BACTRIM DS) 800-160 mg per tablet Review of Systems Review of Systems Constitutional: Negative for chills and fever. HENT: Negative for ear pain and sore throat. Eyes: Negative for pain and visual disturbance. Respiratory: Negative for cough and shortness of breath. Cardiovascular: Negative for chest pain and palpitations. Gastrointestinal: Positive for nausea and vomiting. Negative for abdominal pain. Genitourinary: Negative for dysuria and hematuria. Musculoskeletal: Negative for arthralgias and back pain. Skin: Negative for color change and rash. Neurological: Negative for seizures and syncope. All other systems reviewed and are negative. All systems reviewed and are neg or non contributory for this patients presentation today other than as stated in the HPI . Physical Exam ED Triage Vitals Temp Pulse Resp BP SpO2 10/20/2233510/20/2233510/20/2233510/20/22 03310/20/22335 36.4 ??C (97.6 ??F) 86 20 122/83 98 % Temp src Heart Rate Source Patient Position BP Location FiO2 (%) 10/20/2233510/20/22 0629 -- -- -- Oral Monitor Height Height Method Weight Weight Method -- -- 10/20/2233510/20/22335 53.2 kg (117 lb 4.6 oz) Standing scale Patient Vitals for the past 24 hrs: BP Temp Temp src Pulse Resp SpO2 Weight 10/20/22 0629 121/68 -- -- 81 16 97 % -- 10/20/22 0336 122/83 36.4 ??C (97.6 ??F) Oral 86 20 98 % 53.2 kg (117 lb 4.6 oz) Physical Exam Vitals and nursing note reviewed. Constitutional: General: She is not in acute distress. Appearance: She is well-developed. HENT: Head: Normocephalic and atraumatic. Right Ear: External ear normal. Left Ear: External ear normal. Nose: Nose normal. Mouth/Throat: Pharynx: Oropharynx is clear. Eyes: Conjunctiva/sclera: Conjunctivae normal. Cardiovascular: Rate and Rhythm: Normal rate and regular rhythm. Heart sounds: No murmur heard. Pulmonary: Effort: Pulmonary effort is normal. No respiratory distress. Breath sounds: Normal breath sounds. Abdominal: Palpations: Abdomen is soft. Tenderness: There is no abdominal tenderness. Comments: Patient had vomited some blood this morning. Patient was complaining of some abdominal pain. No increased pain on palpation. Musculoskeletal: General: No swelling. Cervical back: Neck supple. Skin: General: Skin is warm and dry. Capillary Refill: Capillary refill takes less than 2 seconds. Neurological: General: No focal deficit present. Mental Status: She is alert. Psychiatric: Mood and Affect: Mood normal. Procedures MDM Labs Reviewed URINALYSIS AND REFLEX TO MICROSCOPIC AND CULTURE - Abnormal Result Value Color, ur Yellow Clarity, ur Cloudy (*) Specific gravity, ur 1.019 pH, urine 5.0 Protein, ur ql Negative Glucose, ur ql Negative Ketones, ur 1+ (*) Bilirubin, ur Negative Blood, ur Negative Urobilinogen, ur <2.0 Nitrite, ur Negative Leukocyte esterase, ur 3+ (*) UA reflex comment Reflex to microscopic UA will be performed. Narrative: Urine pH is affected by diet, medications, systemic acid-base disturbances, and renal tubular function. pH may affect urinary stone formation. For example, urine pH below 6.0 may help reduce the tendency for calcium phosphate stones and pH greater than 6.0 may reduce the tendency for uric acid stone formation. Source: [employer].Last revised 08-30-2017 CBC WITH AUTO DIFFERENTIAL - Abnormal WBC 11.2 (*) Hgb 12.2 Hct 36.7 Plt 339 MPV 8.7 (*) RBC 4.71 MCV 77.9 (*) MCH 25.9 (*) MCHC 33.2 RDW CV 14.9 RDW SD 41.6 NRBC abs 0.00 DIFFERENTIAL AUTO - Abnormal Neutrophil abs 6.6 (*) Imm gran abs 0.0 Lymphocyte abs 3.3 Monocyte abs 0.8 Eosinophil abs 0.3 Basophil abs 0.1 Neutrophil pct 59.4 Imm gran pct 0.3 Lymphocyte pct 29.3 Monocyte pct 7.1 Eosinophil pct 2.9 Basophil pct 1.0 URINALYSIS, MICROSCOPIC ONLY - Abnormal WBC, ur 6-10 (*) RBC, ur 0-2 Epithelial cells, squamous, ur >50 (*) Mucous, ur Present (*) Culture Reflex Comment Value: Reflex conditions for urine culture (WBC >10) not met. COMPREHENSIVE METABOLIC PANEL Sodium 137 Potassium, pl 3.7 Chloride 103 CO2 22 Anion gap 12 BUN 15 Creatinine 0.60 Glucose 93 Calcium 9.0 Bilirubin, total 0.2 Protein, pl 7.9 Albumin 4.4 Alk phos 64 ALT 13 AST 23 TYPE AND SCREEN ABO/RH ABO/Rh A Negative Narrative: Has the patient had Daratumumab or Isatuximab in the past 6 months?->Unknown ANTIBODY SCREEN Christofer, indirect, Gel Interpretation Negative ABSC Narrative: Has the patient had Daratumumab or Isatuximab in the past 6 months?->Unknown B ABO / RH CONFIRMATION TESTING ABO/Rh Confirmation A Negative ADD ON LAB TEST Acceptable Yes Narrative: Name of Test->hCG, blood, quantitative EGFR eGFR 130 HCG, BLOOD, QUANTITATIVE hCG, quant <0.1 HCG, BLOOD, QUANTITATIVE CT Abdomen Pelvis W Contrast Final Result BP 121/68 Pulse 81 Temp 36.4 ??C (97.6 ??F) (Oral) Resp 16 Wt 53.2 kg (117 lb 4.6 oz) LMP09/27/2022 (Exact Date) SpO2 97% BMI 20.78 kg/m?? MDM Amount and/or Complexity of Data Reviewed Clinical lab tests: ordered and reviewed Tests in the radiology section of CPT??: ordered and reviewed Risk of Complications, Morbidity, and/or Mortality Presenting problems: moderate Diagnostic procedures: moderate Management options: moderate General comments: Patient's lab work shows that the patient has urinary tract infection. CT of the abdomen shows some periportal edema however patient's liver enzymes were normal. Patient states thatshe feels better post medication. Gamez keep the patient on the Zofran for nausea and the Protonix.Patient advised to restart her iron since her iron levels appear low. Diagnosis UTI, Kerry-Rivas tear, low iron. Patient Progress Patient progress: stable Pertinent chart review conducted. SODH - This examination was transcribed using the BULX voice recognition system without human wind project manager. In an effort to expedite patient care, this report has not been adjusted for typographical, grammatical, and syntax by a trained medical officer psychiatry. Close outpatient follow-up with a low threshold to return has been mandated , concerning symptoms have been emphasized in detail, and this patient expresses understanding Clinical Impression: Kerry-Rivas tear Acute cystitis without hematuria Iron deficiency Hugh Hair II, MD 10/20/22 0824 [facility] * Amber Gupta RN - 10/20/2022 3:37 AM CST Pt arrives with c/o one episode of emesis with bright red blood. Pt states that she feels like there is a hole in her stomach. Pt does not have a hx of ulcers. Pt does not drink alcohol frequently,she states very rarely she will have one wine cooler. Pt states she has a history of anemia. [facility] documented in this encounter Plan of Treatment Pending Results Name Type Priority Associated Diagnoses Date /Time hCG, blood, quantitative Lab STAT 10/20/2022 3:45 AM [facility] Scheduled Orders Name Type Priority Associated Diagnoses Orde r Schedule hCG, blood, quantitative Lab STAT Once for 1 Occurrences starting 10/20/2022 until 10/20/2022 documented as of this encounter Procedures Procedure Name Priority Date/Time Associated Diagnosis Comments CT ABDOMEN PELVIS W CONTRAST ED 10/20/2022 5:34 AM [facility] B ABO / RH CONFIRMATION TESTING STAT 10/20/2022 5:23 AM [facility] URINALYSIS AND REFLEX TO MICROSCOPIC AND CULTURE STAT 10/20/2022 5:23 AM [facility] URINALYSIS, MICROSCOPIC ONLY STAT 10/20/2022 5:23 AM [facility] ADD ON LAB TEST Add-On 10/20/2022 4:07 AM [facility] EGFR STAT 10/20/2022 3:45 AM [facility] DIFFERENTIAL AUTO STAT 10/20/2022 3:4 5 AM [facility] CBC WITH AUTO DIFFERENTIAL STAT 10/20/2022 3:45 AM [facility] ABO/RH STAT 10/20/2022 3:45 AM [facility] ANTIBODY SCREEN STAT 10/20/2022 3:45 AM [facility] HC ANTIBODY SCREEN RBC STAT 3:45 AM [facility] HCG, BLOOD, QUANTITATIVE STAT 10/20/2022 3:45 AM [facility] COMPREHENSIVE METABOLIC PANEL STAT 10/20/2022 3:45 AM [facility] documented in this encounter Results * CT Abdomen Pelvis W Contrast (10/20/2022 5:34 AM [facility]) Anatomical Region Laterality Modality Body N/A Computed Tomogra phy 10/20/2022 6:39 AM [facility] Narrative 10/20/2022 6:47 AM [facility] EXAM DESCRIPTION: ?? CT ABDOMEN PELVIS W CONTRAST REASON FOR STUDY: ?? GI bleed, hematemesis ?? c/o one episode of emesis with bright red blood. ??Pt states that she feels like there is a hole in her stomach. Pt states she has a history of anemia. ?? TECHNIQUE: CT scan of the abdomen and pelvis performed with intravenous and ?? without ??oral contrast using helical scanning technique with dynamic intravenous contrast injection. Reconstructed coronal and sagittal MPR images reviewed. All images stored on PACS. Automated exposure control was used as a dose optimization technique for this examination. CONTRAST TYPE/DOSE: ?? 100mL of IOVERSOL 350 MG IODINE/ML INTRAVENOUS SYRINGE ?? injected via ?? intravenous COMPARISON: ?? None REFERENCE: Per ACR white paper recommendations, unless otherwise specified no follow-up imaging is recommended for incidental renal and adrenal lesions per consensus recommendations based on imaging criteria. Further lab evaluation could be pursued based on clinical findings. FINDINGS: LOWER CHEST: ?? No significant pulmonary abnormalities. No effusion. LIVER: ?? Liver enhances homogeneously. ??There is mild to moderate periportal edema. GALLBLADDER: ?? Normal. BILE DUCTS: ?? No intrahepatic or extrahepatic ductal dilatation. SPLEEN: ?? Normal size. ??No focal lesions. PANCREAS: ?? No identified cystic or solid masses. No significant calcifications. No adjacent inflammation or peripancreatic fluid collections. Pancreatic duct not dilated. ?? ADRENALS: ?? Normal. KIDNEYS/URINARY TRACT: ?? No identified significant cystic or solid masses. No visualized stones. No hydronephrosis or hydroureter. Symmetric enhancement. ? Urinary bladder wall thickening is seen. GI: ?? No dilated bowel loops. No obvious wall thickening. ??Normal appendix. ?? No significant diverticular disease. PERITONEUM: ?? There is moderate volume free fluid in the pelvis likely secondary to recently ruptured ovarian cyst, possibly on the right. RETROPERITONEUM: ?? No mass or adenopathy. REPRODUCTIVE: ?? 5.1 x 4.5 cm left ovarian cyst. ??Right ovarian cyst measures 2.7 x 2.2 cm. ??There is fluid in the endometrial canal, likely physiologic. VASCULATURE: ?? No abdominal aortic aneurysm. MUSCULOSKELETAL: ?? No significant abnormality. OTHER: ?? No other abnormality. IMPRESSION: ?? 1. ?? Mild to moderate periportal edema which may be seen in the setting of hepatitis. ??Recommend clinical correlation with serum liver enzymes for further evaluation. 2. ?? Urinary bladder wall thickening which may be seen in the setting of cystitis. ??Recommend clinical correlation with urine analysis for further evaluation. 3. ?? Bilateral ovarian cyst, left greater than right as described above. ??Of note there is a moderate volume free fluid in the pelvis possibly related to a ruptured ovarian cyst, likely on the right. THIS IS AN ELECTRONICALLY VERIFIED FINAL REPORT 10/20/2022 6:47 AM - Electronically signed by ??Elias Olmstead M.D. BB: IVETH D: ??10/20/2022 6:47 AM T: ??10/20/2022 6:47 AM Report ID: [id number] Reading Location: ??[id number] Procedure Note Elias Olmstead MD PhD - 10/20/2022 EXAM DESCRIPTION: CT ABDOMEN PELVIS W CONTRAST REASON FOR STUDY: GI bleed, hematemesis c/o one episode of emesis with bright red blood. Pt states that she feels like there is a hole in her stomach. Pt states she has a history ofanemia. TECHNIQUE: CT scan of the abdomen and pelvis performed with intravenousand without oral contrast using helical scanning technique with dynamic intravenous contrast injection. Reconstructed coronal and sagittal MPRimages reviewed. All images stored on PACS. Automated exposure control was used as a dose optimization technique forthis examination. CONTRAST TYPE/DOSE: 100mL of IOVERSOL 350 MG IODINE/ML INTRAVENOUSSYRINGE injected via intravenous COMPARISON: None REFERENCE: Per ACR white paper recommendations, unless otherwise specifiedno follow-up imaging is recommended for incidental renal and adrenal lesionsper consensus recommendations based on imaging criteria. Further labevaluation could be pursued based on clinical findings. FINDINGS: LOWER CHEST: No significant pulmonary abnormalities. Noeffusion. LIVER: Liver enhances homogeneously. There is mild to moderateperiportal edema. GALLBLADDER: Normal. BILE DUCTS: No intrahepatic or extrahepatic ductal dilatation. SPLEEN: Normal size. No focal lesions. PANCREAS: No identified cystic or solid masses. No significant calcifications. No adjacent inflammation or peripancreatic fluidcollections. Pancreatic duct not dilated. ADRENALS: Normal. KIDNEYS/URINARY TRACT: No identified significant cystic or solid masses.No visualized stones. No hydronephrosis or hydroureter. Symmetricenhancement. Urinary bladder wall thickening is seen. GI: No dilated bowel loops. No obvious wall thickening. Normalappendix. No significant diverticular disease. PERITONEUM: There is moderate volume free fluid in the pelvis likely secondary to recently ruptured ovarian cyst, possibly on the right. RETROPERITONEUM: No mass or adenopathy. REPRODUCTIVE: 5.1 x 4.5 cm left ovarian cyst. Right ovarian cystmeasures 2.7 x 2.2 cm. There is fluid in the endometrial canal, likelyphysiologic. VASCULATURE: No abdominal aortic aneurysm. MUSCULOSKELETAL: No significant abnormality. OTHER: No other abnormality. IMPRESSION: 1. Mild to moderate periportal edema which may be seen in the setting of hepatitis. Recommend clinical correlation with serum liver enzymes for further evaluation. 2. Urinary bladder wall thickening which may be seen in the setting of cystitis. Recommend clinical correlation with urine analysis for further evaluation. 3. Bilateral ovarian cyst, left greater than right as described above.Of note there is a moderate volume free fluid in the pelvis possibly relatedto a ruptured ovarian cyst, likely on the right. THIS IS AN ELECTRONICALLY VERIFIED FINAL REPORT 10/20/2022 6:47 AM - Electronically signed by Elias Olmstead M.D. BB: IVETH Report ID: [id number] Reading Location: [place] [address] Hugh Hair II, MD IMG CT PROCEDURES Final R esult * (ABNORMAL) Urinalysis, microscopic only (10/20/2022 5:23 AM [facility]) WBC, ur 6-10(A) 0 - 5 /HPF ALAINA Comment:Testing performed by : [address] [address] RBC, ur 0-2 0 - 2 /HPF ALAINA Comment:Testing performed by : [address] [address] Epithelial cells, squamous, ur >50(A) 0 - 5 /HPF ALAINA Comment:Testing performed by : [address] [address] Mucous, ur Present(A) ALAINA Comment:Testing performed by : [address] [address] Culture Reflex Comment Reflex conditions for urine culture (WBC >10) not met. ALAINA Comment:Testing performed by : [address] [address] Urine, clean voided 10/20/2022 5:23 AM [facility] 10/20/2022 5:31 AM [facility] [employer] LAB URINE ORDERABLES Final Res ult Performing Organization Address [facility] de Phone Number [address] [address] * ABO / Rh Confirmation Testing (10/20/2022 5:23 AM [facility]) ABO/Rh Confirmation A Negative ALAINA Comment:Testing performed by : [address] [address] Blood 10/20/2022 5:23 AM [facility] 10/20/2022 5:31 AM [facility] opinions[employer]h LAB BLOOD ORDERABLES Final Res ult Performing Organization Address [facility] de Phone Number [address] [address] * (ABNORMAL) Urinalysis reflex to microscopic and culture Urine, clean voided (10/20/2022 5:23 AM [facility]) Color, ur Yellow Yellow ALAINA Comment:Testing performed by : [address] [address] Clarity, ur Cloudy(A) Clear ALAINA Comment:Testing performed by : [address] [address] Specific gravity, ur 1.019 1.003 - 1.030 ALAINA Comment:Testing performed by : [address] [address] pH, urine 5.0 ALAINA Comment:Testing performed by : [address] [address] Protein, ur ql Negative Negative ALAINA Comment:Testing performed by : [address] [address] Glucose, ur ql Negative Negative ALAINA Comment:Testing performed by : [facility], [address] [place] [address]., [address] Ketones, ur 1+(A) Negative ALAINA Comment:Testing performed by : [address], [place]., [address] Bilirubin, ur Negative Negative ALAINA Comment:Testing performed by : [address], [place]., [address] Blood, ur Negative Negative ALAINA Comment:Testing performed by : [address], [place]., [address] Urobilinogen, ur <2.0 <2.0 mg/dL ALAINA Comment:Testing performed by : [address] [address] Nitrite, ur Negative Negative ALAINA Comment:Testing performed by : [address], [place]., [address] Leukocyte esterase, ur 3+(A) Negative ALAINA Comment:Testing performed by : [address], [place]., [address] UA reflex comment Reflex to microscopic UA will be performed. ALAINA Comment:Testing performed by : [address] [address] Urine, clean voided 10/20/2022 5:23 AM [facility] 10/20/2022 5:31 AM [facility] Olga FOLEY - 10/20/2022 5:35 AM [facility] ?? Urine pH is affected by diet, medications, systemic acid-base disturbances, and renal tubular function. ??pH may affect urinary stone formation. ??For example, urine pH below 6.0 may help reduce the tendency for calcium phosphate stones and pH greater than 6.0 may reduce the tendency for uric acid stone formation. Source: [employer]. Last revised 08-30-2017 us Danny Valdez DO LAB MICROBIOLOGY - GENERAL ORD ERABLES Final Result [facility] [address] [facility] Department [place] [address] * hCG, blood, quantitative - Add on lab test (10/20/2022 4:07 AM [facility]) Pathologist [facility] Acceptable Yes ALAINA NAVA Comment:Testing performed by : [facility], [address] [place] [address]., [address] Blood 10/20/2022 4:07 AM [facility] 10/20/2022 4:07 AM [facility] Narrative ALAINA NAVA - 10/20/2022 4:07 AM [facility] Name of Test->hCG, blood, quantitative Hugh Hair II, MD LAB BLOOD ORDERABLES Vandana l Result ALAINA [address] [facility] Department [place] [address] * hCG, blood, quantitative (10/20/2022 3:45 AM [facility]) [facility] hCG, quant <0.1 0.0 - 5.0 IUnits/L ALAINA NAVA Comment: [...] last revised on 2021. Testing performed by: [facility], [address] [place] [address]., [id number] Blood 10/20/2022 3:45 AM [facility] 10/20/2022 3:50 AM [facility] Danny Valdez DO LAB BLOOD ORDERABLES Final Res ult Performing Organization Address City/[facility]/ZIP Co de Phone Number ALAINA [address] [facility] [employer] [address] * eGFR (10/20/2022 3:45 AM [facility] [employer] [employer]) eGFR 130 mL/min/1. 73 m2 ALAINA Comment: Interpretive Data Reference Interval Normal ?>/= [...] was last reviewed 2021. Testing performed by: [facility], [address] [place] [address]., [id number] Blood 10/20/2022 3:45 AM [facility] [employer] 10/20/2022 3:50 AM [facility] [employer] Danny Valdez DO LAB BLOOD ORDERABLES Final Res ult ALAINA [address] [facility] [employer] [place] [address] * (ABNORMAL) Differential, auto (10/20/2022 3:45 AM [facility] [employer] [employer]) Neutrophil abs 6.6(H) 1.7 - 6.5 K/cumm ALAINA Comment:Testing performed by : [address] [address] Imm gran abs 0.0 0.0 - 0.1 K/cumm ALAINA Comment:Testing performed by : [address] [address] Lymphocyte abs 3.3 0.8 - 3.3 K/cumm ALAINA Comment:Testing performed by : [address] [address] Monocyte abs 0.8 0.2 - 0.8 K/cumm ALAINA Comment:Testing performed by : [address] [address] Eosinophil abs 0.3 0.0 - 0.5 K/cumm ALAINA Comment:Testing performed by : [address] [address] Basophil abs 0.1 0.0 - 0.1 K/cumm [facility] Comment:Testing performed by : [address] [address] Neutrophil pct 59.4 % [facility] Comment: Interpretive Data Percent cell count reference ranges are not reported, since discordance with absolute values may lead to misinterpretation of CBC data. Current Interpretive Data was last revised on 2017. Testing performed by: [address] [address] Imm gran pct 0.3 % [facility] Comment: Interpretive Data Percent cell count reference ranges are not reported, since discordance with absolute values may lead to misinterpretation of CBC data. Current Interpretive Data was last revised on 2017. Testing performed by: [address] [address] Lymphocyte pct 29.3 % [facility] Comment: Interpretive Data Percent cell count reference ranges are not reported, since discordance with absolute values may lead to misinterpretation of CBC data. Current Interpretive Data was last revised on 2017. Testing performed by: [address] [address] Monocyte pct 7.1 % ALAINA Comment: Interpretive Data Percent cell count reference ranges are not reported, since discordance with absolute values may lead to misinterpretation of CBC data. Current Interpretive Data was last revised on 2017. Testing performed by: [address] [address] Eosinophil pct 2.9 % ALAINA Comment: Interpretive Data Percent cell count reference ranges are not reported, since discordance with absolute values may lead to misinterpretation of CBC data. Current Interpretive Data was last revised on 2017. Testing performed by: [address] [address] Basophil pct 1.0 % ALAINA Comment: Interpretive Data Percent cell count reference ranges are not reported, since discordance with absolute values may lead to misinterpretation of CBC data. Current Interpretive Data was last revised on 2017. Testing performed by: [address] [address] Blood 10/20/2022 3:45 AM [facility] [employer] 10/20/2022 3:50 AM [facility] [employer] [employer] DXY Danny Valdez DO LAB BLOOD ORDERABLES Final Res ult [facility] [address] [facility] Department [place] [address] * Antibody screen (10/20/2022 3:45 AM [facility] [employer]) Christofer, indirect, Gel Interpretation Negative ABSC ALAINA Comment:Testing performed by : [address] [address] Blood 10/20/2022 3:45 AM [facility] [employer] 10/20/2022 3:49 AM [facility] [employer] [facility] Narrative ALAINA NAVA - 10/20/2022 4:53 AM [facility] [employer] Has the patient had Daratumumab or Isatuximab in the past 6 months?->Unknown [employer] LAB BLOOD BANK TEST ORDERABLES Final Result Performing Organization Address City/[facility] Co de Phone Number ALAINA [facility] [place] [address] * ABO/Rh (10/20/2022 3:45 AM [facility] [employer]) Pathologist [facility] ABO/Rh A Negative ALAINA Comment:Testing performed by : [address] [address] Blood 10/20/2022 3:45 AM [facility] 10/20/2022 3:49 AM [facility] Narrative [facility] - 10/20/2022 4:53 AM [facility] [employer] [employer] Has the patient had Daratumumab or Isatuximab in the past 6 months?->Unknown Danny Valdez [employer] LAB BLOOD BANK TEST ORDERABLES Final Result Performing Organization Address [facility] de Phone Number ALAINA [facility] [place] [address] * Comprehensive metabolic panel (10/20/2022 3:45 AM [facility] [employer]) [facility] Sodium 137 135 - 145 mmol/L ALAINA Comment:Testing performed by : [address] [address] Potassium, pl 3.7 3.3 - 4.9 mmol/L ALAINA Comment:Testing performed by : [address] [address] Chloride 103 97 - 110 mmol/L ALAINA Comment:Testing performed by : [address] [address] CO2 22 22 - 32 mmol/L ALAINA Comment:Testing performed by : [address] [address] Anion gap 12 2 - 15 mmol/L ALAINA Comment:Testing performed by : [address] [address] BUN 15 8 - 25 mg/dL ALAINA Comment:Testing performed by : [address] [address] Creatinine 0.60 0.60 - 1.10 mg/dL ALAINA Comment:Testing performed by : [address] [address] Glucose 93 70 - 199 mg/dL ALAINA Comment: Interpretive Data Fasting glucose >/= 126 [...] classification and Diagnosis of Diabetes Diabetes Care 2021; 46: S19-S40. Current interpretive data was last revised 2022. Testing performed by: [address] [address] Calcium 9.0 8.5 - 10.3 mg/dL ALAINA Comment:Testing performed by : [address] [address] Bilirubin, total 0.2 0.1 - 1.2 mg/dL ALAINA Comment:Testing performed by : [address] [address] Protein, pl 7.9 6.5 - 8.5 g/dL ALAINA Comment:Testing performed by : [address] [address] Albumin 4.4 3.5 - 5.0 g/dL ALAINA Comment:Testing performed by : [address] [address] Alk phos 64 40 - 130 Units/L ALAINA Comment:Testing performed by : [address] [address] ALT 13 7 - 45 Units/L ALAINA Comment:Testing performed by : [address] [address] AST 23 10 - 45 Units/L ALAINA Comment:Testing performed by : [address] [address] Blood 10/20/2022 3:45 AM [facility] 10/20/2022 3:50 AM [employer] [employer] us Danny Valdez DO LAB BLOOD ORDERABLES Final Res ult ALAINA [address] [facility] Department [place] [address] * (ABNORMAL) CBC with auto differential (10/20/2022 3:45 AM [facility] [employer] [employer]) WBC 11.2(H) 3.8 - 9.9 K/cumm ALAINA Comment:Testing performed by : [address] [address] Hgb 12.2 11.9 - 15.5 g/dL ALAINA Comment:Testing performed by : [address] [address] Hct 36.7 35.6 - 45.5 % ALAINA Comment:Testing performed by : [address] [address] Plt 339 150 - 400 K/cumm ALAINA Comment:Testing performed by : [address] [address] MPV 8.7(L) 9.1 - 12.3 fL ALAINA Comment:Testing performed by : [address] [address] RBC 4.71 3.90 - 5.20 M/cumm ALAINA Comment:Testing performed by : [address] [address] MCV 77.9(L) 81.3 - 96.4 fL ALAINA Comment:Testing performed by : [address] [address] MCH 25.9(L) 27.1 - 33.3 pg ALAINA Comment:Testing performed by : [address] [address] MCHC 33.2 32.3 - 35.7 g/dL ALAINA Comment:Testing performed by : [address] [address] RDW CV 14.9 11.1 - 14.9 % ALAINA NAVA Comment:Testing performed by : [address] [address] RDW SD 41.6 35.7 - 48.1 fL ALAINA NAVA Comment:Testing performed by : [facility], [address] [place] [address]., [address] NRBC abs 0.00 0.00 - 0.01 K/cumm ALAINA NAVA Comment:Testing performed by : [address] [address] Blood 10/20/2022 3:45 AM [facility] 10/20/2022 3:50 AM [facility] [employer] [employer] Danny Valdez DO LAB BLOOD ORDERABLES Final Res ult ALAINA NAVA [address] [facility] Department [place] [address] documented in this encounter Visit Diagnoses Diagnosis Kerry-Rivas tear- Primary Gastroesophageal laceration-hemorrhage syndrome Acute cystitis without hematuria Iron deficiency Disorders of iron metabolism documented in this encounter Administered Medications Inactive Administered Medications - up to 3 most recent administrations Medication Order MAR Action Action Date Dose Rate Site ioversoL (OPTIRAY 350) syringe 100 mL 100 mL, intravenous, Once in imaging, contrast, Starting on Sun10/20/22 at 0459, For 1 dose Contrast Given 10/20/2022 5:30 AM [facility] [employer] [employer] 100 mL ondansetron (ZOFRAN) injection 4 mg 4 mg, intravenous, Administer over 2 Minutes, Once, On Sun10/20/22 at 0358, For 1 dose Given 10/20/2022 4:09 AM [facility] 4 mg pantoprazole (PROTONIX) 4 mg/mL injection 80 mg 80 mg, intravenous, Administer over 2 Minutes, Once, On Sun10/20/22 at 0358, For 1 dose, For IV Push administration for adults- 40 mg vial: add 10 mL of sodium chloride 0.9% to achieve a final concentration of 4 mg/mL, Indications: GI BleedIndications:GI Bleed Given 10/20/2022 4:09 AM [facility] [employer] 80 mg sodium chloride 0.9% bolus 1,000 mL 1,000 mL, intravenous, Once, On Sun10/20/22 at 0358, For 1 dose New Bag 10/20/2022 4:09 AM [facility] 1,000 mL sulfamethoxazole-trimeth oprim (BACTRIM DS) 800-160 mg per tablet 320 mg of trimethoprim 320 mg of trimethoprim, oral, Once, On Sun10/20/22 at 0759, For 1 dose, Indications: Urinary Tract/Genitourinary InfectionIndications:Uri nary Tract/Genitourinary Infection Given 10/20/2022 8:18 AM [facility] [employer] 320 mg of trimethoprim documented in this encounter Active and Recently Administered Medications Times are shown in [facility]. Scheduled Medication Order 10/18/2022 10/19/2022 10/20/2022 ondansetron (ZOFRAN) injection 4 mg (COMPLETED) 4 mg, intravenous, Administer over 2 Minutes, Once, On Sun10/20/22 at 0358, For 1 dose 0409 (Given - Provid er: Angely Dumont RN) pantoprazole (PROTONIX) 4 mg/mL injection 80 mg (COMPLETED) 80 mg, intravenous, Administer over 2 Minutes, Once, On Sun10/20/22 at 0358, For 1 dose, For IV Push administration for adults- 40 mg vial: add 10 mL of sodium chloride 0.9% to achieve a final concentration of 4 mg/mL, Indications: GI Bleed 0409 (Given - Provid er: Angely Dumont RN) sodium chloride 0.9% bolus 1,000 mL (COMPLETED) 1,000 mL, intravenous, Once, On Sun10/20/22 at 0358, For 1 dose 0409 (New Bag - Prov ider: Angely Dumont RN)0622 (Stopped - Provider: Angely Dumont RN) sulfamethoxazole-trimethoprim (BACTRIM DS) 800-160 mg per tablet 320 mg of trimethoprim (COMPLETED) 320 mg of trimethoprim, oral, Once, On Sun10/20/22 at 0759, For 1 dose, Indications: Urinary Tract/Genitourinary Infection 0818 (Given - Provid er: Tiffanie Giron RN) PRN Medication Order 10/18/2022 10/19/2022 10/20/2022 ioversoL (OPTIRAY 350) syringe 100 mL (COMPLETED) 100 mL, intravenous, Once in imaging, contrast, Starting on Sun10/20/22 at 0459, For 1 dose 0530 (Contrast Given - Provider: Ankur Costa RT) documented in this encounter Care Teams Community Facilitator Relationship Specialty Start Date End Date Unknown, Notinfile PCP - General 10/20/22 Unknown, Notinfile 07/12/21 documented as of this encounter
--- OUTSIDE RECORDS SUMMARY | 2024-08-05 00:20 | XMS_ITS | Encounter Summary ---
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 Gender Identity Female 03/11/2020 1:47 PM CDT Sexual Orientation Straight 03/11/2020 1: 47 PM CDT 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 on file documented as of this encounter Plan of Treatment Not on file documented as of this encounter Procedures Procedure Name Priority Date/Time Associated Diagnosis Comments SCAN - RADIOLOGY/IMAGING 11/07/2022 SCAN - LABS 11/07/2022 documented in this encounter Results * SCAN - LABS (11/07/2022) us Provider Scanning Final Result * SCAN - RADIOLOGY/IMAGING (11/07/2022) Anatomical Region Laterality Modality Other us Provider Scanning Final Result documented in this encounter Visit Diagnoses Not on filedocumented in this encounter Care Teams Drill Punch Operator Relationship Specialty Start Date End Date Unknown, Notinfile PCP - General 10/20/22 Unknown, Notinfile 07/12/21 documented as of this encounter
--- OUTSIDE RECORDS SUMMARY | 2024-08-05 00:21 | XMS_ITS | Encounter Summary ---
Author Organization [facility] Healthcare Address [address] [place] [address] Care Team Providers Care K 9 Police Officer Name Role Phone Unavailable Primary Care Provider Unavailabl e Encounter Details Date Type Department Care Team (Late st Contact Info) Description 09/08/2020 10:00 AM BUNKER WORKER Hospital Encounter [facility]IM Arun Campos MD [address] [place] [id number] Social History Tobacco Use Types Packs/Day Years Used Date Smoking Tobacco: Never Smokeless Tobacco: Never Alcohol Use Standard Drinks/Week Comments Yes 0 (1 standard drink = 0.6 oz pur e alcohol) occasional Comments Unknown Sex and Gender Information Value Date Recorded Sex Assigned at Not on file Legal Sex Female 6:22 AM BUNKER WORKER Gender Identity Female 03/11/2020 1:47 PM CDT Sexual Orientation Straight 03/11/2020 1: 47 PM CDT documented as of this encounter Medications at Time of Discharge cyclobenzaprine (FLEXERIL) 10 mg tablet 06/24/2020 05/16/[address] (CYMBALTA) 30 mg capsule Take 60 mg by mouth daily 03/01/2023 magnesium oxide 400 mg capsule Take 1 cap daily 30 each 5 08/06/2018 06/15/2021 OXcarbazepine (TRILEPTAL) 300 mg tablet Take 1/2 tab (150 mg) in pm along with one 600 mg tab for total evening dose of 750 mg. 15 tablet 5 06/06/2019 05/16/2021 OXcarbazepine (TRILEPTAL) 600 mg tablet Take 1 tablet (600 mg total) by mouth 2 (two) times a day 60 tablet 11 06/06/2019 05/16/2021 prazosin (MINIPRESS) 2 mg capsule Take 2 mg by mouth nightly 06/15/2021 Multi-DHA,with vit K, 27 mg iron-800 mcg-260 mg capsule 07/29/2020 12/28/2021 documented as of this encounter Plan of Treatment Not on file documented as of this encounter Visit Diagnoses Not on filedocumented in this encounter
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
--- OUTSIDE RECORDS SUMMARY | 2024-08-05 00:21 | XMS_ITS | Encounter Summary ---
Author Organization [facility] Address [address] [place] [address] Phone Care Team Providers Care Sales Office Manager Name Role Phone Krystal Castrejon MD Primary Care Pro vider Unknown, Notinfile Unavailable Unavailable Encounter Details Date Type Department Care Team (Late st Contact Info) Description 12/28/2021 Telephone [facility] [address] [facility] [facility] [address] [place] [address] Janeth Ronquillo MD [address] [facility] [phone] [place] [address] Social History Tobacco Use Types Packs/Day Years [...] on file 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 Thank You * Telephone Encounter - Javy Interiano RN - 01/02/2022 1:25 PM CDT Spoke to Lorri and confirmed the plan of Vit D supplementation. Lorri shared that she has been taking 10,000 international units daily over the last 5 days. She then will begin the 15,000 international units weekly. Scheduling team: Please reach out to Lorri after 3pm to make a f/u appt with Dr. Ronquillo * Telephone Encounter - Javy Interiano RN - 12/29/2021 9:22 AM CDT LVM for Lorri * Telephone Encounter - Javy Interiano RN - 12/28/2021 4:32 PM CDT I apologize - I see the parents listed as Guardians. I will reach out to Lorri directly. * Telephone Encounter - Janeth Ronquillo MD - 12/28/2021 4:18 PM CDT You need to discuss with Lorri, not her mother. Thanks, RICCI * Telephone Encounter - Javy Interiano RN - 12/28/2021 3:58 PM CDT Spoke with mom/Kenyatta and alerted her to the Vit D levels and the way that Dr. Ronquillo wishes to proceed with this critical low. I explained the one time dose of 50,000 International units and then aweekly dose of 15,000. Kenyatta verbalized understanding and appreciated the call. Dr. Castrejon is on the [employer] system and can see our notes/results. Mom made aware of that and will also make sure they see this plan. Dr. Ronquillo Anything else I can assist with, please let me know. Mom will touch base in a Month for an update or sooner should there be a concern. * Telephone Encounter - Janeth Ronquillo MD - 12/28/2021 3:53 PM CDT Please review Lorri's labs with her. She did suspect that she was anemic again due to her symptomsso that will not be a surprise. Please have her call her PCP and please make sure the labs are available to the PCP office. Her vitamin D level is 14. Please have her take 50,000 international units once and then 12821 international units weekly. Luh, MB documented in this encounter Plan of Treatment Not on file documented as of this encounter Visit Diagnoses Not on filedocumented in this encounter Discontinued Medications Medication Sig Discontinue Reason Start Date End Da te Multi-DHA,with vit K, 27 mg iron-800 mcg-260 mg capsule 07/29/202012/18 documented as of this encounter Care Teams Sales Office Manager Relationship Specialty Start Date End Date Krystal Castrejon MD PCP - General Family Medicine 07/12/21 10/19/22 Unknown, Notinfile 07/12/21 documented as of this encounter
--- OUTSIDE RECORDS SUMMARY | 2024-08-05 00:21 | XMS_ITS | Encounter Summary ---
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 Gender Identity Female 03/11/2020 1:47 PM CDT Sexual Orientation Straight 03/11/2020 1: 47 PM CDT documented as of this encounter Plan of Treatment Not on file documented as of this encounter Procedures Procedure Name Priority Date/Time Associated Diagnosis Comments SCAN - RADIOLOGY/IMAGING 10/21/2021 documented in this encounter Results * SCAN - RADIOLOGY/IMAGING (10/21/2021) Anatomical Region Laterality Modality Other us Provider Scanning Final Result documented in this encounter Visit Diagnoses Not on filedocumented in this encounter Care Teams Fruit Buying Grader Relationship Specialty Start Date End Date Krystal Castrejon MD PCP - General Family Medicine 07/12/21 10/19/22 Unknown, Notinfile PCP - General 10/20/22 Unknown, Notinfile 07/12/21 documented as of this encounter
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
--- OUTSIDE RECORDS SUMMARY | 2024-08-05 00:21 | XMS_ITS | Encounter Summary ---
Author Organization [facility] Address [address] [place] [address] Care Team Providers Care Centerless Grinder Name Role Phone Krystal Castrejon MD Primary Care Pro vider Unknown, Notinfile Unavailable Unavailable Reason for Visit * Reason Comments PT Treatment Encounter Details Date Type Department Care Team (Late st Contact Info) Description 10/18/2021 7:45 AM SYNTHETIC STAPLE EXTRUDER Therapy [facility] Bld[facility] OP Physical Therapy [address] [place] [id number] Allison Wilkerson, TRUONG Achilles tendinitis of left lower extremity (Primary [...] on file Legal Sex Female 6:22 AM SYNTHETIC STAPLE EXTRUDER Gender Identity Female 03/11/2020 1:47 PM CDT Sexual Orientation Straight 03/11/2020 1: 47 PM CDT documented as of this encounter Progress Notes * Aliyah Wilkersonycleonel MartniCamden, OFFICE ADMINISTRATOR - 10/18/2021 7:45 AM CST ICD-9-CM ICD-10-CM 1. Achilles tendinitis of left lower extremity 726.71 M76.62 Krystal Castrejon MD [address] [address] Precautions: HX OF GRAND MAL SEIZURES NO ELECTROTHERAPEUTIC MODALITIES *Eval Date/ (PT): 09/13/21 BW *Recert & Orders :12/06/21 *Progress Note due: Date Date Date 09/27/21 09/29/21 10/18/21 15 mins late Visit Number: 3 4 5 Exercises: Treadmill w/ TrA conx 2.3mph 7 min 2.2 mph 5 minutes 2.2 mph 5 min Marydel rows 20# 10 x 2 20# x15 Lower handles 20# x 15 Lower handles Hip machine w/ TrA and gluteal emphasis abd/ ext 30# x15 30# x 15 gastroc step stretch L 3 x 30 sec NT 3 x 30 ec Stride stretch L ankle 3x20 sec 3 x 20 sec Heel raises w/ eccentric emphasis x10 x15 Wobble board A/P L-2, 20 x A/P, R/L x15 each 1/4 squat ankle and core emphasis x15 x10 Wall push ups 20 x UT manual stretch 3x20 sec R/L Pec minor door frame stretch 3 x 30 sec Supine abdominal isometrics Marching x10 Deep cervical flexor strengthening supine neck sit ups Lower cervical flexion stretch Treatments/ Modalities: IASTM L Achilles/calf ASTYM 10 min Astym 15 minutes ASTYM left achilles Dry needling prn NT Progress Note/Re-Cert Done Treatment: TDN treatment utilized .30 x 50 [...] pain in neck, back and L Achilles ]' HETIC STAPLE EXTRUDER * Allison Wilkerson PTA - 10/18/2021 7:45 AM CST Images from the original note were not included. Physical Therapy Daily Visit Report 10/18/2021 Elidaleigh ann Ernandez 2000 ICD-9-CM ICD-10-CM 1. Achilles tendinitis of left lower extremity 726.71 M76.62 Subjective: Pt reports she is improving . Pt is reporting continued difficulty with some pain at neck radha when touched Pain today is 1/10. Changes since last visit include ankle improving. Objective: Objective Measurement/Observation: Pt performes all ex's as outlined. Noted some tightness at achilles. Specific exercises and treatment interventions are outlined on exercise worksheet document. Home Exercise Program: States doing HEP Assessment: Patient tolerated today's treatment . Patient demonstrates some tightness which is contributing to difficulty with discomfort. Patient would benefit from additional skilled therapy services in order to address above deficits and return to prior level of function. Goals Addressed This Visit: STG met Plan: Patient would benefit from the following modification on next visit continue to work toward goals. Therapy will continue to address these impairments in order to progress towards functional goals. Allison Wilkerson PTA [facility] Please sign below to certify this plan of care/treatment plan. Thank you. Provider Signature: Date: HETIC STAPLE EXTRUDER documented in this encounter Plan of Treatment Not on file documented as of this encounter Visit Diagnoses Diagnosis Achilles tendinitis of left lower extremity- Primary documented in this encounter Care Teams Centerless Grinder Relationship Specialty Start Date End Date Krystal Castrejon MD PCP - General Family Medicine 07/12/21 10/19/22 Unknown, Notinfile 07/12/21 documented as of this encounter
--- OUTSIDE RECORDS SUMMARY | 2024-08-05 00:21 | XMS_ITS | Encounter Summary ---
Author Organization [facility] Healthcare Address [address] [place] [address] Care Team Providers Care Applications Systems Engineer Name Role Phone Krystal Castrejon MD Primary Care Pro vider Unknown, Notinfile Unavailable Unavailable Reason for Visit * Reason Comments PT Treatment Encounter Details Date Type Department Care Team (Late st Contact Info) Description 09/27/2021 7:45 AM FAN RUNNER Therapy [facility] Medical Office Bldg 1 OP Physical Therapy [address] [place] [id number] Piero Nuñez, OPERATIONS ENGINEER Achilles tendinitis of left lower extremity (Primary [...] on file Legal Sex Female 6:22 AM FAN RUNNER Gender Identity Female 03/11/2020 1:47 PM CDT Sexual Orientation Straight 03/11/2020 1: 47 PM CDT documented as of this encounter Progress Notes * Piero Nuñez, OPERATIONS ENGINEER - 09/27/2021 7:45 AM CST ICD-9-CM ICD-10-CM 1. Achilles tendinitis of left lower extremity 726.71 M76.62 2. Chronic neck pain 723.1 M54.2 338.29 G89.29 3. 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 *Eval Date/ (PT):09/13/21 BW *Recert & Orders :12/06/21 *Progress Note due: 10/13/21 Date Date Date Date Date 09/13/21 09/20/21 09/27/21 Visit Number: 1 2 3 Exercises: Initial instr in HEP Treadmill w/ TrA conx 7' 2.2 2.3mph 7 min Ohlman rows 20# x10 20# 2/10 20# 10 x 2 Hip machine w/ TrA and gluteal emphasis abd/ ext gastroc step stretch L L x4 30 3 x 30 sec Stride stretch L ankle Heel raises w/ eccentric emphasis Wobble board A/P 30x Lvl 2 L-2, 20 x 1/4 squat ankle and core emphasis Wall push ups 20x 20 x Pec minor door frame stretch 3x / 30 3 x 30 sec Supine abdominal isometrics Marching Deep cervical flexor strengthening supine neck sit ups Lower cervical flexion stretch x3 / 20 Treatments/ Modalities: IASTM L Achilles Graston # 2,4,3, 6 ASTYM 10 min Dry needling prn EW PT Cervical Progress Note/Re-Cert Done Treatment: TDN treatment utilized [...] in neck, back and L Achilles ]' Cosigned by Phu Zurita, PT at 10/07/2021 11:05 AM FAN RUNNER RUNNER RUNNER * Piero Nuñez PTA - 09/27/2021 7:45 AM CST Images from the original note were not included. Physical Therapy Daily Visit Report 09/27/2021 Lorri Ernandez 2000 ICD-9-CM ICD-10-CM 1. Achilles tendinitis of left lower extremity 726.71 M76.62 2. Chronic neck pain 723.1 M54.2 338.29 G89.29 3. Chronic bilateral low back pain without sciatica 724.2 M54.50 338.29 G89.29 Subjective: Pt reports left achilles soreness, but radha neck region. Pt is reporting continued difficulty with extended standing.. Pain today is 2-9/10 neck, back 1-5/10, ankle/achilles 2-7/10. Changes since last visit include no significant changes.. Objective: Objective Measurement/Observation: Patient showing functional ankle and back mobility this date. Specific exercises and treatment interventions are outlined on exercise worksheet document. Home Exercise Program: Patient to continue exercises as instructed. Assessment: Patient tolerated today's treatment without issues.. Patient demonstrates somewhat of rigid neck which is contributing to difficulty with cervical mobility.. Patient would benefit from additional skilled therapy services in order to address above deficits and return to prior level of function. Goals Addressed This Visit: Working to attain decreased pain through left leg low back and neck. Plan: Patient would benefit from the following modification on next visit: Continue with plan of care.. Therapy will continue to address these impairments in order to progress towards functional goals. Piero Nuñez PTA [facility] Please sign below to certify this plan of care/treatment plan. Thank you. Provider Signature: Date: RUNNER documented in this encounter Plan of Treatment Not on file documented as of this encounter Visit Diagnoses Diagnosis Achilles tendinitis of left lower extremity- Primary Chronic neck pain Cervicalgia Chronic bilateral low back pain without sciatica documented in this encounter Care Teams Applications Systems Engineer Relationship Specialty Start Date End Date Krystal Castrejon MD PCP - General Family Medicine 07/12/21 10/19/22 Unknown, Notinfile 07/12/21 documented as of this encounter
--- OUTSIDE RECORDS SUMMARY | 2024-08-05 00:21 | XMS_ITS | Encounter Summary ---
Author Organization [facility] Healthcare Address [address] [place] [address] Care Team Providers Care Environmental Emergencies Planner Name Role Phone Unavailable Primary Care Provider Unavailabl e Encounter Details Date Type Department Care Team (Late st Contact Info) Description 11/07/2020 2:20 AM CDT - 11/07/2020 6:02 AM CDT Emergency [facility] Emergency Department [address] [place] [id number] Unknown, Notinfile Discharge Disposition: Left without being seen Social History Tobacco Use Types Packs/Day Years Used Date Smoking Tobacco: Never Smokeless Tobacco: Never Alcohol Use Standard Drinks/Week Comments Yes 0 (1 standard drink = 0.6 oz pur e alcohol) occasional Comments Unknown Sex and Gender Information Value Date Recorded Sex Assigned at Not on file Legal Sex Female 6:22 AM SECURITIES ATTORNEY Gender Identity Female 03/11/2020 1:47 PM CDT Sexual Orientation Straight 03/11/2020 1: 47 PM CDT documented as of this encounter Last Filed Vital Signs Vital Sign Reading Time Taken Comments Blood Pressure 115/72 11/07/2020 2:31 AM CDT Pulse 85 11/07/2020 2:31 AM CDT Temperature 36.9 ??C (98.5 ??F) 11/07/2020 2:31 AM CD T Respiratory Rate - - Oxygen Saturation 100% 11/07/2020 2:31 AM CDT Inhaled Oxygen Concentration - - Weight 46.9 kg (103 lb 6.4 oz) 11/07/2020 2:31 A M CDT Height 157.5 cm (5' 2 ) 11/07/2020 2:31 AM CDT Body Mass Index 18.91 11/07/2020 2:31 AM CDT documented in this encounter Medications at Time [...] 07/29/2020 12/28/2021 documented as of this encounter Discharge Disposition Disposition Code Departure Means Destination Left without being seen documented in this encounter Plan of Treatment Not on file documented as of this encounter Visit Diagnoses Not on filedocumented in this encounter
--- OUTSIDE RECORDS SUMMARY | 2024-08-05 00:21 | XMS_ITS | Encounter Summary ---
Author Organization [facility] Address [address] [place] [address] Phone Care Team Providers Care Coding Specialist Name Role Phone Krystal Castrejon MD Primary Care Pro vider Unknown, Notinfile Unavailable Unavailable Reason for Referral * Diagnostic Imaging (Routine) - Closed Specialty Diagnoses / Procedures Referred By Mavis carreon Referred To Contact Diagnoses Left foot pain Procedures [place] 3+ [place] [address] [place] [address] Phone: tel: fax: [facility] Referral ID Status Reason Start Date Expiration Date Visits Re quested Visits Authorized [id number] Closed 12/20/2021 01/19/2023 1 1 Reason for Visit * Reason Comments Pain Tendonitis Encounter Details Date Type Department Care Team (Late st Contact Info) Description 12/23/2021 9:00 AM CDT Office Visit [facility] Orthopa[facility] 6th [place] [address] [place] [address] [place] [address] [place] [address] Achilles tendinitis of left lower extremity (Primary Dx); Left foot pain Social History Tobacco Use Types Packs/Day Years [...] on file Legal Sex Female 6:22 AM SUBCONTRACT ADMINISTRATOR Gender Identity Female 03/11/2020 1:47 PM CDT Sexual Orientation Straight 03/11/2020 1: 47 PM CDT 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 female who presents for evaluation today of her left chronic Achilles pain. For several years she has had persistent pain along her Achilles tendon. She sought attention from a primary care physician several months ago where it was recommended to attend physical therapy. She completed physical therapy and is now continuing to stretching exercises at home. She has found no improvement in her symptoms. She is experiencing a sharp pulling sensation when getting out of bed in the morning, when hiking or climbing stairs. She denies any mechanical symptoms. She denies paresthesias. She has been resting while using ice and Aleve with minimal improvement. PAST MEDICAL HISTORY Past Medical History: Diagnosis Date ??? Allergic rhinitis ??? Anemia ??? Anxiety ??? Depression ??? Heart murmur ??? Jaundice ??? Migraines ??? Seizures (CMS/HCC) (HCC) ??? Urinary tract infection SURGICAL HISTORY Past Surgical History: Procedure Laterality Date ??? STRABISMUS SURGERY Bilateral SOCIAL HISTORY She reports that she has never smoked. She has never used smokeless tobacco. She reports current alcohol use. She reports that she does not use drugs. FAMILY HISTORY She family history includes Arthritis in her mother; Autism spectrum disorder in her brother; Diabetes in her maternal grandfather and maternal grandmother; Hearing loss in her paternal grandfather and paternal grandmother; Hypertension in her father; Mental illness in her brother and mother; Seizures in her mother. DRUG ALLERGIES She is allergic to depo-provera contraceptive, penicillin v, wasp venom, medroxyprogest-estradiol cyp, and ceftriaxone. INITIAL REVIEW OF MEDICATIONS She has a current medication list which includes the following prescription(s): duloxetine dr (CYMBALTA), duloxetine dr (CYMBALTA), hydroxyzine (ATARAX), oxcarbazepine (TRILEPTAL), and multi-dha(with vit k). REVIEW OF SYSTEMS Review of Systems Constitutional: Negative. HENT: Negative. Eyes: Negative. Respiratory: Negative. Cardiovascular: Negative. Gastrointestinal: Negative. Endocrine: Negative. Genitourinary: Negative. Musculoskeletal: Positive for arthralgias, gait problem and myalgias. Skin: Negative. Allergic/Immunologic: Negative. Hematological: Negative. Psychiatric/Behavioral: Negative. Breast: Negative. PHYSICAL EXAMINATION Ht Readings from Last 1 Encounters: 12/23/21 157.5 cm (5' 2 ) Wt Readings from Last 1 Encounters: 12/23/21 50.8 kg (112 lb) Patient is alert and oriented ??3. Hearing is intact to spoken word. Respirations are even and nonlabored. Exam of the left lower extremity shows palpable DP and PT pulses. Sensation is intact to light touch through the DP, SP, sural, saphenous and tibial distribution. Skin reveals no rashes, lesions or ulcers. No evidence of swelling, erythema or ecchymosis. Tenderness noted along the distal Achilles tendon. No appreciation for gaps or bulges. No tenderness reproduced elsewhere. She has an intact dorsiflexion, plantar flexion, inversion and eversion. 5/5 motor strength through the EHL, FHL, anterior tibialis, gastrocsoleus, peroneals and posterior tibialis. I am not able to get her ankle into neutral with knee flexion or extension. Tight gastrocsoleus musculature. Neutral alignment noted. Pain reproduced with single leg heel raise. REVIEW OF X-RAYS/STUDIES I have ordered left foot radiographs and personally reviewed the images with the patient today. My independent interpretation is no evidence of any acute bony abnormality. IMPRESSION/DIAGNOSIS Left distal Achilles tendinopathy TREATMENT/PLAN I have reviewed her physical examination, x-ray findings and impression thoroughly with her today. She has worked through a course of physical therapy and continued strengthening exercises at home with no improvement. She continues to experience a sharp pulling sensation along her Achilles tendon. I recommended proceeding with a course of immobilization in a boot with a heel cup to offload her Achilles. She was placed into a boot today. She will discuss immobilization with her employer. She is concerned she will not be able to work in the boot. If she is not able to work in the boot she will use a heel lift while continuing strengthening exercises at home. She may trial a night splint if she is not able to be immobilized in a boot. She will use ice and anti-inflammatories as needed. If she is able to work in the boot I would recommend following up in 6 weeks for a repeat examination Patient voices understanding and is in agreement with this plan today. FOLLOW UP Six weeks, repeat exam In collaborative practice with MATIAS MckeonN, RN, EEO OFFICER-C Nurse Practitioner Foot [facility]le [facility] Pam Gomez RN, EEO OFFICER-C in a collaborative practice with Dr. Maykel Barroso and Dr. Mekhi Gomez, RN, EEO OFFICER-C dictating using Fluency Direct. Copy Camera Operator variances may occur. documented in this encounter Plan of Treatment Not on file documented as of this encounter Results * XR Foot Left 3+ View (12/23/2021 9:24 AM CDT) Anatomical Region Laterality Modality Lower Extremities, Foot Left Computed Radiography 12/23/2021 10:1 1 AM CDT Impressions 12/23/2021 4:38 PM CDT No acute osseous abnormality of the left foot. Dictated by: Lino Abdi M.D. The radiology attending physician has personally reviewed this study, and had reviewed and/or edited this written report and agrees with it. Electronically signed by: Phu Mendoza M.D. Narrative 12/23/2021 4:38 PM CDT EXAM: 1. ??XR FOOT LEFT 3 OR MORE VIEWS HISTORY: Left foot pain FINDINGS: 3 radiographs of the left foot are provided for interpretation. ??No pertinent priors available for comparison. There is no acute fracture. ??The joint spaces are preserved. ??No significant soft tissue swelling. No evidence of stress fracture. Procedure Note Phu Mendoza MD - 12/23/2021 EXAM: 1. XR FOOT LEFT 3 OR MORE VIEWS HISTORY: Left foot pain FINDINGS: 3 radiographs of the left foot are provided for interpretation. No pertinent priors available for comparison. There is no acute fracture. The joint spaces are preserved. No significant soft tissue swelling. No evidence of stress fracture. IMPRESSION: No acute osseous abnormality of the left foot. Dictated by: Lino Abdi M.D. The radiology attending physician has personally reviewed this study, and had reviewed and/or edited this written report and agrees with it. Electronically signed by: Phu Mendoza M.D. us Pam Gomez WELFARE WORKER IMG XR PROCEDURES Final Result documented in this encounter Visit Diagnoses Diagnosis Achilles tendinitis of left lower extremity- Primary Left foot pain Pain in soft tissues of limb Left foot pain Pain in soft tissues of limb documented in this encounter Care Teams Coding Specialist Relationship Specialty Start Date End Date Krystal Castrejon MD PCP - General Family Medicine 07/12/21 10/19/22 Unknown, Notinfile 07/12/21 documented as of this encounter
--- OUTSIDE RECORDS SUMMARY | 2024-08-05 00:21 | XMS_ITS | Encounter Summary ---
Author Organization [facility] Healthcare Address [address] [place] [address] Care Team Providers Care Headmaster/Mistress Name Role Phone Unavailable Primary Care Provider Unavailabl e Encounter Details Date Type Department Care Team (Late st Contact Info) Description 10/13/2020 11:27 AM OIL FIRE SPECIALIST - 10/13/2020 2:16 PM [facility] Emergency [facility] [address] [place] [id number] Unknown, Royal Espinal PA [address] [place] [address] [place] [address] Discharge Disposition: Discharge to home or self care Social History Tobacco Use Types Packs/Day Years Used Date Smoking Tobacco: Never Smokeless Tobacco: Never Alcohol Use Standard Drinks/Week Comments Yes 0 (1 standard drink = 0.6 oz pur e alcohol) occasional Comments Unknown Sex and Gender Information Value Date Recorded Sex Assigned at Not on file Legal Sex Female 6:22 AM OIL FIRE SPECIALIST Gender Identity Female 03/11/2020 1:47 PM CDT Sexual Orientation Straight 03/11/2020 1: 47 PM CDT documented as of this encounter Last Filed Vital Signs Vital Sign Reading Time Taken Comments Blood Pressure 106/67 10/13/2020 11:46 AM OIL FIRE SPECIALIST Pulse 73 10/13/2020 11:46 AM OIL FIRE SPECIALIST Temperature 36.4 ??C (97.5 ??F) 10/13/2020 1 1:46 AM OIL FIRE SPECIALIST Respiratory Rate - - Oxygen Saturation 100% 10/13/2020 11: 46 AM OIL FIRE SPECIALIST Inhaled Oxygen Concentration - - Weight 46.7 kg (102 lb 15.3 oz) 021 11:46 AM OIL FIRE SPECIALIST Height 160 cm (5' 3 ) 10/13/2020 11:46 AM OIL FIRE SPECIALIST Body Mass Index 18.24 10/13/2020 11:46 AM OIL FIRE SPECIALIST documented in this encounter Medications at Time [...] Priority Date/Time Associated Diagnosis Comments SCAN - LABS 10/14/2020 12:00 AM OIL FIRE SPECIALIST ECG 12-LEAD 10/13/2020 1:25 PM OIL FIRE SPECIALIST INFLUENZA A/B, RSV, AND COVID-19 PCR Routine 10/13/2020 12:45 PM OIL FIRE SPECIALIST URINALYSIS, COMPLETE W/REFLEX TO CULTURE Routine 10/13/2020 12:35 PM OIL FIRE SPECIALIST URINALYSIS AND REFLEX TO MICROSCOPIC AND CULTURE Routine 10/13/2020 12:35 PM OIL FIRE SPECIALIST CBC WITH AUTO DIFFERENTIAL Routine 10/13/2020 11:54 AM OIL FIRE SPECIALIST COMPREHENSIVE METABOLIC PANEL Routine 10/13/2020 11:54 AM OIL FIRE SPECIALIST documented in this encounter Results * SCAN - LABS (10/14/2020 12:00 AM OIL FIRE SPECIALIST) Narrative 10/14/2020 12:00 AM OIL FIRE SPECIALIST Ordered by an unspecified provider. us Historical Provider MD Final Res ult * ECG 12 lead (10/13/2020 1:25 PM OIL FIRE SPECIALIST) Ventricular Rate EKG/Min 64 BPM [facility] Atrial Rate [address] [facility] MS-Interval (MSEC) 132 ms [facility] QRS-Interval (MSEC) 92 ms [facility] QT-Interval (MSEC) 388 ms [facility] QTc 400 ms [facility] P [place] -23 degrees [facility] R [place] 67 degrees [facility] T [place] 31 degrees [facility] Diagnosis Normal sinus rhythm Normal ECG When compared with ECG of 13-FEB-2020 11:33, Vent. rate has decreased BY ??60 BPM T wave inversion no longer evident in Inferior leads Nonspecific T wave abnormality no longer evident in Lateral leads [facility] 10/13/2020 1:25 PM OIL FIRE SPECIALIST 10/14/2020 10:29 PM OIL FIRE SPECIALIST Narrative Resulting Agency Comment JOSSELIN us Notinfile Unknown ECG ORDERABLES Final Result [id number] [place] [address] * Influenza A/B, RSV, and COVID-19 PCR (10/13/2020 12:45 PM OIL FIRE SPECIALIST) Pathologist [facility] Influenza A RNA NEGATIVE NEGATIVE [facility] Influenza B RNA NEGATIVE NEGATIVE [facility] RSV RNA NEGATIVE NEGATIVE [facility] COVID-19 RNA NEGATIVE [facility] Comment: Testing was performed on the FileThis Xpert Xpress SARS-CoV-2 real-time RT-PCR platform under FDA Emergency Use Authorization. ??This test is validated only for appropriately collected nasopharyngeal swab specimens. ??A negative result does not preclude infection with COVID-19 and should not be used as the sole basis for treatment or other patient management decisions. 10/13/2020 12:4 5 PM OIL FIRE SPECIALIST 10/13/2020 1:00 PM OIL FIRE SPECIALIST Narrative [facility] - 10/13/2020 2:12 PM OIL FIRE SPECIALIST [id number] Unknown No Unknown Yes No Yes Fever Likely to be admitted Resulting Agency Comment ER [facility] MICROBIOLOGY - GENERAL ORD ERABLES Final Result [address] [phone] * (ABNORMAL) URINALYSIS, COMPLETE W/REFLEX TO CULTURE (10/13/2020 12:35 PM OIL FIRE SPECIALIST) [facility] Collection Type CLEAN CATCH [facility] Ur Culture Indicated? C S NOT INDICATED [facility] Urine Color YELLOW YELLOW [facility] Urine Clarity [facility]OU[facility]AR [facility] Urine Glucose (UA) NORMAL NORMAL mg/dL [facility] Urine Bilirubin NEGATIVE NEGATIVE mg/dl [facility] Urine Ketones NEGATIVE NEGATIVE mg/dL [facility] Ur Specific Dillon 1.015 1.005 - 1.025 [facility] Urine Blood NEGATIVE NEGATIVE mg/dl [facility] Urine pH 8.0 5.0 - 8.0 [facility] Urine Protein NEGATIVE NEGATIVE mg/dL [facility] Urine Urobilinogen 2(A) NORMAL mg/dL [facility] Urine Nitrite NEGATIVE NEGATIVE [facility] Ur Leukocyte Esterase 500(A) NEGATIVE Will/ul [facility] Ur Microscopic Review Indicated or Ordered [facility] Urine RBC 6-10 0 - 2 /HPF [facility] Ur Squamous Epith Cells >50 /LPF [facility] Amorphous Crystals Trace /HPF [facility] 10/13/2020 12:3 5 PM OIL FIRE SPECIALIST 10/13/2020 12:42 PM OIL FIRE SPECIALIST Narrative [facility] - 10/13/2020 1:32 PM OIL FIRE SPECIALIST Indication(s) for ordering ?? Fever -unknown source rh Clean catch Resulting Agency Comment ER [facility] URINE ORDERABLES Final Res ult [address] [phone] * (ABNORMAL) Urinalysis reflex to microscopic and culture (10/13/2020 12:35 PM OIL FIRE SPECIALIST) Ur Collection Type CLEAN CATCH [facility] Ur Culture Indicated? C S NOT INDICATED [facility] Urine Color YELLOW YELLOW [facility] Urine Clarity [facility] Urine Glucose (UA) NORMAL NORMAL mg/dL [facility] Urine Bilirubin NEGATIVE NEGATIVE mg/dl [facility] Urine Ketones NEGATIVE NEGATIVE mg/dL [facility] Ur Specific Dillon 1.015 1.005 - 1.025 [facility] Urine Blood NEGATIVE NEGATIVE mg/dl [facility] Urine pH 8.0 5.0 - 8.0 [facility] Urine Protein NEGATIVE NEGATIVE mg/dL [facility] Urine Urobilinogen 2(A) NORMAL mg/dL [facility] Urine Nitrite NEGATIVE NEGATIVE [facility] Ur Leukocyte Esterase 500(A) NEGATIVE Will/ul [facility] Ur Microscopic Review Indicated or Ordered [facility] Urine RBC 6-10 0 - 2 /HPF [facility] Ur Squamous Epith Cells >50 /LPF [facility] Amorphous Crystals Trace /HPF [facility] 10/13/2020 12:3 5 PM OIL FIRE SPECIALIST 10/13/2020 12:42 PM OIL FIRE SPECIALIST Narrative [facility] - 10/13/2020 1:32 PM OIL FIRE SPECIALIST Indication(s) for ordering ?? Fever -unknown source rh Clean catch Resulting Agency Comment ER us [facility] MICROBIOLOGY - GENERAL ORD ERABLES Final Result [facility] [address] [place] [address], [facility] [phone] * (ABNORMAL) Comprehensive metabolic panel (10/13/2020 11:54 AM OIL FIRE SPECIALIST) Pathologist [facility] Sodium 136 135 - 145 mmol/L [facility] Potassium 4.1 3.3 - 5.1 mmol/L [facility] Chloride 103 96 - 108 mmol/L [facility] Carbon Dioxide 24 22 - 32 mmol/L [facility] Anion Gap 9 7 - 16 [facility] Glucose 85 70 - 100 mg/dL [facility] BUN 7(L) 8 - 25 mg/dL [facility] Creatinine 0.4(L) 0.5 - 1.1 mg/dL [facility] Comment: NOTE: Estimated GFR (Cockroft-Gault) will NOT be calculated unless patient Height and Weight were entered. Also, Kidney Disease Stage (GFR) and Estimated GFR (Cockroft-Gault) will NOT be calculated if Creatinine result is <0.2. Kidney Disease Stage >90 mL/MIN [facility] Comment: NOTE; ??The GFR is an estimated value using the creatinine, sex, age, and race of the patient. THE Estimated Kidney Disease GFR is validated for AGES 18-70 YEARS STAGE ?mL/Min ?DESCRIPTION ??1 ?90 mL/min or more ?Normal or elevated GFR ??2 ? 60-89 mL/min ?Mildly decreased GFR ??3 ? 30-59 mL/min ?Moderately decreased GFR ??4 ? 15-29 mL/min ?Severely decreased GFR ??5 ? <15 mL/min ? Kidney failure or on dialysis Est GFR (Cockcroft-G) 165 ml/MIN [facility] Comment: Estimated GFR(Cockroft-Gault)is used to calculate patient medication dosage Calcium 9.2 8.6 - 10.3 mg/dL [facility] Total Protein 7.1 6.4 - 8.3 g/dL [facility] Albumin 3.9 3.5 - 5.0 g/dL [facility] Globulin 3.2 2.3 - 3.5 gm/dL [facility] Albumin/Globulin Ratio 1.2 1.1 - 1.8 [facility] Total Bilirubin 0.2 0.0 - 1.2 mg/dL [facility] AST 14 0 - 32 U/L [facility] ALT 10 0 - 33 U/L [facility] Alkaline Phosphatase 48 35 - 104 U/L [facility] 10/13/2020 11:5 4 AM OIL FIRE SPECIALIST 10/13/2020 12:14 PM OIL FIRE SPECIALIST Narrative [facility] - 10/13/2020 12:29 PM OIL FIRE SPECIALIST Resulting Agency Comment ER us [facility] BLOOD ORDERABLES Final Res ult Performing Organization Address City/State/[facility] Co de Phone Number [facility] [address] [phone] * (ABNORMAL) CBC with auto differential (10/13/2020 11:54 AM OIL FIRE SPECIALIST) WBC 10.1(H) 3.8 - 9.9 X10 3/ul [facility] RBC 4.19 3.90 - 5.20 x10 6/ul [facility] Hemoglobin 11.9 11.9 - 15.5 g/dL [facility] Hct 35.6 35.6 - 45.5 % [facility] MCV 85.0 81.3 - 96.4 fl [facility] MCH 28.4 27.1 - 33.3 pg [facility] MCHC 33.4 32.3 - 35.7 g/dl [facility] RDW 13.2 11.1 - 14.9 % [facility] Plt Count 302 150 - 400 x10 3/ul [facility] MPV 8.9(L) 9.1 - 12.3 fl [facility] Neut % 73.5 % [facility] Immature Gran % 0.5 % [facility] Lymph % 17.7 % [facility] AST - [facility] [place] % 6.6 % [facility] Eos % 1.3 % [facility] AUTO BASO % 0.4 % [facility] NEUTROPHIL ABS # 7.4(H) 1.7 - 6.5 x10 3/ul [facility] Immature Gran # 0.1 0.0 - 0.1 x10 3/ul [facility] Absolute Lymphs (auto) 1.8 0.8 - 3.3 x10 3/ul [facility] Absolute Monos (auto) 0.7 0.2 - 0.8 x10 3/ul [facility] Absolute Eos (auto) 0.1 0.0 - 0.5 x10 3/ul [facility] BASOPHIL ABS # 0.0 0.0 - 0.1 x10 3/ul [facility] Nucleat RBC Rel Count 0.0 #/100WBC [facility] NRBC abs 0.00 0.00 - 0.01 x10 3/ul [facility] Absolute Neutrophils 7,400 200 - 8,000 /ul [facility] 10/13/2020 11:5 4 AM OIL FIRE SPECIALIST 10/13/2020 12:14 PM OIL FIRE SPECIALIST Narrative [facility] - 10/13/2020 12:18 PM OIL FIRE SPECIALIST Resulting Agency Comment ER us [facility] BLOOD ORDERABLES Final Res ult [facility] [address] [phone] documented in this encounter Visit Diagnoses Not on filedocumented in this encounter
--- OUTSIDE RECORDS SUMMARY | 2024-08-05 00:21 | XMS_ITS | Encounter Summary ---
Author Organization [facility] Address [address] [place] [address] Phone Care Team Providers Care Corporate Recycling Manager Name Role Phone Unknown, Notinfile Primary Care Provider Unavail able Encounter Details Date Type Department Care Team (Late st Contact Info) Description 06/23/[address] [facility] Pediatric Neurology [address] [place] [phone] Susan Melara MD [address] [place], [place] [id number] Social History Tobacco Use Types Packs/Day Years Used Date Smoking Tobacco: Never Smokeless Tobacco: Never Alcohol Use Standard Drinks/Week Comments Yes 0 (1 standard drink = 0.6 oz pur e alcohol) occasional Comments Unknown Sex and Gender Information Value Date Recorded Sex Assigned at Not on file Legal Sex Female 6:22 AM STRETCH PRESS OPERATOR Gender Identity Female 03/11/2020 1:47 PM CDT Sexual Orientation Straight 03/11/2020 1: 47 PM CDT documented as of this encounter Miscellaneous Notes * Telephone Encounter - Susan Melara MD - 06/23/2021 6:34 PM CDT Returned after hours call from Lorri's mother Lorri is a 20 year old female with history of focal epilepsy who follows with Dr. Ronquillo. Today,she received her first Depo shot and had an allergic reaction so was taken to [facility] ED. There she began having frequent seizures. Mom is with Lorri in the ED now and she is continuing to have seizuresevery few minutes. I encouraged her to have the physician in the ED contact me through [facility] if they needed assistance with management. During the time of the call, I could hear Lorri speaking in the background. Mom got off the phone with me when her nurse entered the room. Susan Melara MD Pediatric Neurology PGY-5 documented in this encounter Plan of Treatment Not on file documented as of this encounter Visit Diagnoses Not on filedocumented in this encounter Care Teams Corporate Recycling Manager Relationship Specialty Start Date End Date Unknown, Notinfile PCP - General 06/21/21 07/11/21 documented as of this encounter
--- OUTSIDE RECORDS SUMMARY | 2024-08-05 00:21 | XMS_ITS | Encounter Summary ---
Author Organization [facility] Healthcare Address [address] [place] [address] Care Team Providers Care Vpk Teacher Name Role Phone Krystal Castrejon MD Primary Care Pro vider Unknown, Notinfile Unavailable Unavailable Encounter Details Date Type Department Care Team (Late st Contact Info) Description 12/28/2021 [place] [address] Janeth Ronquillo MD [address] [facility] [phone] [place], [place] [id number] Social History Tobacco Use Types Packs/Day Years [...] on file Legal Sex Female 6:22 AM TAPE WEAVER Gender Identity Female 03/11/2020 1:47 PM CDT Sexual Orientation Straight 03/11/2020 1: 47 PM CDT 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
--- OUTSIDE RECORDS SUMMARY | 2024-08-05 00:21 | XMS_ITS | Encounter Summary ---
Author Organization [facility] Healthcare Address [address] [place] [address] Care Team Providers Care Community Service Aide Name Role Phone Krystal Castrejon MD Primary Care Pro vider Unknown, Notinfile Unavailable Unavailable Encounter Details Date Type Department Care Team (Late st Contact Info) Description 12/28/2021 11:50 [place] [address] Other fatigue; Other iron deficiency anemia Social History Tobacco Use Types Packs/Day Years [...] on file Legal Sex Female 6:22 AM TRANSMISSION AND PROTECTION ENGINEER Gender Identity Female 03/11/2020 1:47 PM CDT Sexual Orientation Straight 03/11/2020 1: 47 PM CDT 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 on file documented as of this encounter Plan of Treatment Not on file documented as of this encounter Procedures Procedure Name Priority Date/Time Associated Diagnosis Comments EGFR Routine 12/28/2021 12:30 PM CDT Other fatigue DIFFERENTIAL AUTO Routine 12/28/2021 12: 30 PM CDT Other fatigue Other iron deficiency anemia IRON PROFILE W/ IBC Routine 12/28/2021 1 2:30 PM CDT Other fatigue Other iron deficiency anemia CBC WITH AUTO DIFFERENTIAL Routine 12/28/2021 12:30 PM CDT Other fatigue Other iron deficiency anemia VITAMIN D 25 HYDROXY Routine 12/28/2021 12:30 PM CDT Other fatigue TSH Routine 12/28/2021 12:30 PM CDT Other fatigue T4, FREE Routine 12/28/2021 12:30 PM CDT Other fatigue FERRITIN Routine 12/28/2021 12:30 PM CDT Other fatigue Other iron deficiency anemia COMPREHENSIVE METABOLIC PANEL Routine 12/28/2021 12:30 PM CDT Other fatigue documented in this encounter Results * (ABNORMAL) eGFR (12/28/2021 12:30 PM CDT) eGFR >90(H) 90 - 130 mL/min/1. 73 m2 [facility] Comment: Interpretive Data Reference Interval Normal ?>/= [...] Current interpretive data was last reviewed 2021. Blood 12/28/2021 12:3 0 PM CDT 12/28/2021 12:30 PM CDT us Janeth Ronquillo MD LAB BLOOD ORDERABLES Final R esult [facility] Department [place] [address] * Differential, auto (12/28/2021 12:30 PM CDT) Neutrophil abs 4.4 1.7 - 6.5 K/cumm [facility] Imm gran abs 0.0 0.0 - 0.1 K/cumm [facility] Lymphocyte abs 2.7 0.8 - 3.3 K/cumm [facility] Monocyte abs 0.7 0.2 - 0.8 K/cumm [facility] Eosinophil abs 0.2 0.0 - 0.5 K/cumm [facility] Basophil abs 0.1 0.0 - 0.1 K/cumm [facility] Neutrophil pct 54.3 % [facility] Comment: Interpretive Data Percent cell count reference ranges are not reported, since discordance with absolute values may lead to misinterpretation of CBC data. Current Interpretive Data was last revised on 2017. Imm gran pct 0.2 % [facility] Comment: Interpretive Data Percent cell count reference ranges are not reported, since discordance with absolute values may lead to misinterpretation of CBC data. Current Interpretive Data was last revised on 2017. Lymphocyte pct 33.5 % [facility] Comment: Interpretive Data Percent cell count reference ranges are not reported, since discordance with absolute values may lead to misinterpretation of CBC data. Current Interpretive Data was last revised on 2017. Monocyte pct 9.0 % [facility] Comment: Interpretive Data Percent cell count reference ranges are not reported, since discordance with absolute values may lead to misinterpretation of CBC data. Current Interpretive Data was last revised on 2017. Eosinophil pct 2.0 % [facility] Comment: Interpretive Data Percent cell count reference ranges are not reported, since discordance with absolute values may lead to misinterpretation of CBC data. Current Interpretive Data was last revised on 2017. Basophil pct 1.0 % [facility] Comment: Interpretive Data Percent cell count reference ranges are not reported, since discordance with absolute values may lead to misinterpretation of CBC data. Current Interpretive Data was last revised on 2017. Blood 12/28/2021 12:3 0 PM CDT 12/28/2021 12:30 PM CDT us Janeth Ronquillo MD LAB BLOOD ORDERABLES Final R esult [facility] Department [place] [address] * TSH (12/28/2021 12:30 PM CDT) Thyroid Stimulating Hormone 0.67 0.30 - 4.20 mcIUnit/mL [facility] Blood 12/28/2021 12:3 0 PM CDT 12/28/2021 12:30 PM CDT Janeth Ronquillo MD LAB BLOOD ORDERABLES Final R esult [facility] [place] [address] * T4, free (12/28/2021 12:30 PM CDT) Free T4 1.12 0.90 - 1.70 ng/dL [facility] Blood 12/28/2021 12:3 0 PM CDT 12/28/2021 12:30 PM CDT Janeth Ronquillo MD LAB BLOOD ORDERABLES Final R esult Performing Organization Address [facility] [place] [address] * (ABNORMAL) Vitamin D 25 hydroxy (12/28/2021 12:30 PM CDT) Vitamin D 25-OH 14(L) 30 - 80 ng/mL [facility] Blood 12/28/2021 12:3 0 PM CDT 12/28/2021 12:30 PM CDT Janeth Ronquillo MD LAB BLOOD ORDERABLES Final R esult Performing Organization Address [facility] [place] [address] * (ABNORMAL) Ferritin (12/28/2021 12:30 PM CDT) Ferritin 10(L) 15 - 150 ng/mL [facility] Blood 12/28/2021 12:3 0 PM CDT 12/28/2021 12:30 PM CDT Janeth Ronquillo MD LAB BLOOD ORDERABLES Final R esult Performing Organization Address [facility] [place] [address] * (ABNORMAL) Iron profile w/ IBC (12/28/2021 12:30 PM CDT) Iron 49 35 - 145 mcg/dL [facility] TIBC 504(H) 250 - 400 mcg/dL [facility] Transferrin saturation 10(L) 20 - 50 % [facility] Blood 12/28/2021 12:3 0 PM CDT 12/28/2021 12:30 PM CDT us Janeth Ronquillo MD LAB BLOOD ORDERABLES Final R esult [facility] One [facility] Department [place] [address] * (ABNORMAL) Comprehensive metabolic panel (12/28/2021 12:30 PM CDT) Sodium 139 135 - 145 mmol/L [facility] Potassium, pl 3.8 3.3 - 4.9 mmol/L [facility] Chloride 109 97 - 110 mmol/L [facility] CO2 25 22 - 32 mmol/L [facility] Anion gap 5 2 - 15 mmol/L [facility] BUN 9 8 - 25 mg/dL [facility] Creatinine 0.56(L) 0.60 - 1.10 mg/dL [facility] Glucose 85 70 - 199 mg/dL [facility] Comment: Interpretive Data Fasting glucose >/= 126 [...] classification and Diagnosis of Diabetes Diabetes Care 2019; 42:S13-S28. Current interpretive data was last revised 2017. Calcium 9.2 8.5 - 10.3 mg/dL [facility] Bilirubin, total 0.2 0.1 - 1.2 mg/dL [facility] Protein, pl 7.7 6.5 - 8.5 g/dL [facility] Albumin 4.3 3.5 - 5.0 g/dL [facility] Alk phos 101 40 - 130 Units/L [facility] ALT 13 7 - 45 Units/L [facility] AST 19 10 - 45 Units/L [facility] Blood 12/28/2021 12:3 0 PM CDT 12/28/2021 12:30 PM CDT us Janeth Ronquillo MD LAB BLOOD ORDERABLES Final R esult Performing Organization Address [facility] Co de Phone Number [facility] [place] [address] * (ABNORMAL) CBC with auto differential (12/28/2021 12:30 PM CDT) WBC 8.0 3.8 - 9.9 K/cumm [facility] Hgb 11.5(L) 11.9 - 15.5 g/dL [facility] Hct 36.2 35.6 - 45.5 % [facility] Plt 363 150 - 400 K/cumm [facility] MPV 9.2 9.1 - 12.3 fL [facility] RBC 4.78 3.90 - 5.20 M/cumm [facility] MCV 75.7(L) 81.3 - 96.4 fL [facility] MCH 24.1(L) 27.1 - 33.3 pg [facility] MCHC 31.8(L) 32.3 - 35.7 g/dL [facility] RDW CV 18.0(H) 11.1 - 14.9 % [facility] RDW SD 48.5(H) 35.7 - 48.1 fL [facility] NRBC abs 0.00 0.00 - 0.01 K/cumm [facility] Blood 12/28/2021 12:3 0 PM CDT 12/28/2021 12:30 PM CDT Janeth Ronquillo MD LAB BLOOD ORDERABLES Final R esult Performing Organization Address City/[facility]/ZIP [place] [address] documented in this encounter Visit Diagnoses Diagnosis Other fatigue Other iron deficiency anemia documented in this encounter Care Teams Community Service Aide Relationship Specialty Start Date End Date Krystal Castrejon MD PCP - General Family Medicine 07/12/21 10/19/22 Unknown, Notinfile 07/12/21 documented as of this encounter
--- OUTSIDE RECORDS SUMMARY | 2024-08-05 00:21 | XMS_ITS | Encounter Summary ---
Author Organization [facility] Address [address] [place] [address] Care Team Providers Care Winch Stripper Name Role Phone Krystal Castrejon MD Primary Care Pro vider Unknown, Notinfile Unavailable Unavailable Reason for Visit * Reason Comments PT Treatment Encounter Details Date Type Department Care Team (Late st Contact Info) Description 09/29/2021 3:45 PM HARDWARE DESIGN ENGINEER Therapy [facility] Medical Office Bldg 1 OP Physical Therapy [address] [place] [address] Estefania Carr, PT Achilles tendinitis of left [...] on file Legal Sex Female 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 *Eval Date/ (PT): 09/13/21 BW *Recert & Orders :12/06/21 *Progress Note due: 10/13/21 Date Date Date 09/27/21 09/29/21 Visit Number: 3 4 Exercises: Treadmill w/ TrA conx 2.3mph 7 min 2.2 mph 5 minutes [place] rows 20# 10 x 2 20# x15 Lower handles Hip machine w/ TrA and gluteal emphasis abd/ ext 30# x15 gastroc step stretch L 3 x 30 sec NT Stride stretch L ankle 3x20 sec Heel raises w/ eccentric emphasis x10 Wobble board A/P L-2, 20 x A/P, R/L x15 each 1/4 squat ankle and core emphasis x15 Wall push ups 20 x UT manual stretch 3x20 sec R/L Pec minor door frame stretch 3 x 30 sec Supine abdominal isometrics Marching x10 Deep cervical flexor strengthening supine neck sit ups Lower cervical flexion stretch Treatments/ Modalities: IASTM L Achilles/calf ASTYM 10 min Astym 15 minutes Dry needling prn NT Progress Note/Re-Cert Done [...] in neck, back and L Achilles ]' WARE DESIGN ENGINEER * Estefania Carr, PT - 09/29/2021 3:45 PM CST Images from the original note were not included. Physical Therapy Daily Visit Report 09/29/2021 Lorri Ernandez 2000 ICD-9-CM ICD-10-CM 1. Achilles tendinitis of left lower extremity 726.71 M76.62 Subjective: Pt reports her neck is her primary area of pain today.. Pt is reporting continued difficulty with sitting, walking, using computer. . Pain today is 8/10 neck, 7/10 L Achilles tendon area.. Changes since last visit include more neck pain. Objective: Objective Measurement/Observation: ambulates w/ slow gait velocity. TTP along medial margin of Achilles. Increased tissue texture noted L gastroc/soleus. Specific exercises and treatment interventions are outlined on exercise worksheet document. Home Exercise Program: reviewed prn Assessment: Patient tolerated today's treatment w/ adjustments prn to exercise due to increased neck pain. Patient demonstrates neck pain and L Achilles pain which is contributing to difficulty with gait, sitting at computer. Patient would benefit from additional skilled therapy services in order to address above deficits and return to prior level of function. Goals Addressed This Visit: STG 1 met. Plan: Patient would benefit from the following modification on next visit: advance ROM, strengthening as tolerated . Therapy will continue to address these impairments in order to progress towards functional goals. Estefania Carr PT,DPT [facility] Please sign below to certify this plan of care/treatment plan. Thank you. Provider Signature: Date: WARE DESIGN ENGINEER documented in this encounter Plan of Treatment Not on file documented as of this encounter Visit Diagnoses Diagnosis Achilles tendinitis of left lower extremity- Primary documented in this encounter Care Teams Winch Stripper Relationship Specialty Start Date End Date Krystal Castrejon MD PCP - General Family Medicine 07/12/21 10/19/22 Unknown, Notinfile 07/12/21 documented as of this encounter
--- OUTSIDE RECORDS SUMMARY | 2024-08-05 00:21 | XMS_ITS | Encounter Summary ---
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 A work note was provided that she canreturn to work without restrictions. Pam did also suggest that she consider a 3/8 inch heel liftin her shoe to reduce the tension on her tendon. I relayed this information to the patient over thephone and she verbalized understanding. * Telephone Encounter - Bhumika Guerrero, RN - 12/23/2021 3:32 PM CDT Pt called today to report that her work will not allow her to work in a boot. She is not able to take time off of work at this time. She stated that she can wear the boot at home. I explained that there really is no benefit to just wearing the boot at home. She does need a note to release her to work without the boot. I told her that I will discuss this with Pam. documented in this encounter Plan of Treatment Not on file documented as of this encounter Visit Diagnoses Not on filedocumented in this encounter Care Teams Truck Unloader Relationship Specialty Start Date End Date Krystal Castrejon MD PCP - General Family Medicine 07/12/21 10/19/22 Unknown, Notinfile 07/12/21 documented as of this encounter
--- OUTSIDE RECORDS SUMMARY | 2024-08-05 00:21 | XMS_ITS | Encounter Summary ---
Author Organization [facility] Healthcare Address [address] [place] [address] Care Team Providers Care Fingernail Former Name Role Phone Krystal Castrejon MD Primary Care Pro vider Unknown, Notinfile Unavailable Unavailable Reason for Visit * Reason Comments PT Treatment Encounter Details Date Type Department Care Team (Late st Contact Info) Description 09/20/2021 7:00 AM TUTORIAL LABORATORY SUPERVISOR Therapy [facility] Medical Office Bldg 1 OP Physical Therapy [address] [place] [address] Phu Zuriat, PT Achilles tendinitis of left lower extremity [...] on file Legal Sex Female 6:22 AM TUTORIAL LABORATORY SUPERVISOR Gender Identity Female 03/11/2020 1:47 PM CDT Sexual Orientation Straight 03/11/2020 1: 47 PM CDT documented as of this encounter Progress Notes * Phu Zurita, PT - 09/20/2021 7:00 AM CST ICD-9-CM ICD-10-CM 1. Achilles tendinitis of left lower extremity 726.71 M76.62 2. Chronic neck pain 723.1 M54.2 338.29 G89.29 3. 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 *Eval Date/ (PT):09/13/21 BW *Recert & Orders :12/06/21 *Progress Note due: 10/13/21 Date Date Date Date Date 09/13/21 09/20/21 Visit Number: 1 2 Exercises: Initial instr in HEP Treadmill w/ TrA conx 7' 2.2 [place] rows 20# x10 20# 2/10 Hip machine w/ TrA and gluteal emphasis abd/ ext gastroc step stretch L L x4 30 Stride stretch L ankle Heel raises w/ eccentric emphasis Wobble board A/P 30x Lvl 2 1/4 squat ankle and core emphasis Wall push ups 20x Pec minor door frame stretch 3x / 30 Supine abdominal isometrics Marching Deep cervical flexor strengthening supine neck sit ups Lower cervical flexion stretch x3 / 20 Treatments/ Modalities: IASTM L Achilles [place] # 2,4,3, 6 Dry needling prn EW PT Cervical Progress [...] in neck, back and L Achilles ]' RIAL LABORATORY SUPERVISOR * Phu Zurita, PT - 09/20/2021 7:00 AM CST Images from the original note were not included. Physical Therapy Daily Visit Report 09/20/2021 Elidaleigh ann Ernandez 2000 ICD-9-CM ICD-10-CM 1. Achilles tendinitis of left lower extremity 726.71 M76.62 2. Chronic neck pain 723.1 M54.2 338.29 G89.29 3. Chronic bilateral low back pain without sciatica 724.2 M54.50 338.29 G89.29 Subjective: Pt reports neck pain as her primary complaint. She reports low back pain and achilles tendon pain as her secondary complaints. Pt is reporting continued difficulty with neck pain while working, and Lfoot pain with walking. Mild low back pain reported with ADLs. Pain today is 4/10 - Cervical. Changes since last visit include: No new complaints. Objective: Objective Measurement/Observation: Lumbar flexion appears slightly limited. Overreactive to palpation at the C-S paraspinals. ATrP at C5-C7 PVM bilateral. Guarded C-S AROM towards flexion and rotation. Specific exercises and treatment interventions are outlined on exercise worksheet document. The dryneedling technique, benefits, and risks were reviewed with the patient. Informed consent obtained after thorough explanation of risks and benefits. Signed consent form will be placed in the patient???s medical record. Pre-procedure included verification of name, , and site of treatment. 70% isopropyl alcohol wipe down performed to the treatment site. Home Exercise Program: Reviewed. Assessment: Patient tolerated today's treatment well without adverse effects. TDN treatment performed at the C-S tolerated well. We reviewed precautions and patient agreeable to the treatment. Patient demonstrates guarded C-S AROM, and tenderness at the C-S PVM and L achilles tendon which is contributing to dif ficulty with walking, ADLs.. Patient would benefit from additional skilled therapy services in order to address above deficits and return to prior level of function. Goals Addressed This Visit: Cervical pain. Gastroc flexibility. Posture exercises. Plan: Patient would benefit from the following modification on next visit: Cont POC.. Therapy will continue to address these impairments in order to progress towards functional goals. Phu Zurita PT, [facility] Please sign below to certify this plan of care/treatment plan. Thank you. Provider Signature: Date: RIAL LABORATORY SUPERVISOR documented in this encounter Plan of Treatment Not on file documented as of this encounter Visit Diagnoses Diagnosis Achilles tendinitis of left lower extremity- Primary Chronic neck pain Cervicalgia Chronic bilateral low back pain without sciatica documented in this encounter Care Teams Fingernail Former Relationship Specialty Start Date End Date Krystal Castrejon MD PCP - General Family Medicine 07/12/21 10/19/22 Unknown, Notinfile 07/12/21 documented as of this encounter
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
--- OUTSIDE RECORDS SUMMARY | 2024-08-05 00:21 | XMS_ITS | Encounter Summary ---
Author Organization [facility] Address [address] [place] [address] Care Team Providers Care Hair Spinner Name Role Phone Krystal Castrejon MD Primary Care Pro vider Unknown, Notinfile Unavailable Unavailable Reason for Referral * Consultation (Routine) - Closed Specialty Diagnoses / Procedures Referred By Mavis carreon Referred To Contact Physical Therapy Diagnoses Achilles tendinitis of left lower extremity Chronic neck pain Chronic bilateral low back pain without sciatica Krystal Castrejon MD Phone: tel: fax: [address] [phone] Referral ID Status Reason Start Date Expiration Date V isits Requested Visits Authorized [id number] Closed Specialty Services Required 09/05/2021 10/05/2022 99 99 Question Answer Location provided for therapy services is: Patient requested/Patient preferred Please select the performing region: [facility] [[id number]] # of visits: 24 RAFT GENERAL REPAIR MECHANIC Reason for Visit * Reason Comments Ankle Pain previous injurys lef t pain present appro. 1 mo. Encounter Details Date Type Department Care Team (Late st Contact Info) Description 09/05/2021 10:30 AM AIRCRAFT GENERAL REPAIR MECHANIC Office Visit [facility] Primary Care [address] [place] [address] Krystal Castrejon MD [facility] [address] [place], [place] [address] Achilles tendinitis of left lower extremity (Primary [...] on file Legal Sex Female 6:22 AM AIRCRAFT GENERAL REPAIR MECHANIC Gender Identity Female 03/11/2020 1:47 PM CDT Sexual Orientation Straight 03/11/2020 1: 47 PM CDT documented as of this encounter Last Filed Vital Signs Vital Sign Reading Time Taken Comments Blood Pressure 110/70 09/05/2021 10:31 AM AIRCRAFT GENERAL REPAIR MECHANIC Pulse 86 09/05/2021 10:31 AM AIRCRAFT GENERAL REPAIR MECHANIC Temperature 36.3 ??C (97.4 ??F) 09/05/2021 1 0:31 AM AIRCRAFT GENERAL REPAIR MECHANIC Respiratory Rate 18 09/05/2021 10:3 1 AM AIRCRAFT GENERAL REPAIR MECHANIC Oxygen Saturation 99% 09/05/2021 10: 31 AM AIRCRAFT GENERAL REPAIR MECHANIC Inhaled Oxygen Concentration - - Weight 51.1 kg (112 lb 11.2 oz) 022 10:31 AM AIRCRAFT GENERAL REPAIR MECHANIC Height 158.2 cm (5' 2.28 ) 09/05/2021 1 0:31 AM AIRCRAFT GENERAL REPAIR MECHANIC Body Mass Index 20.43 09/05/2021 10:31 AM AIRCRAFT GENERAL REPAIR MECHANIC documented in this encounter Patient Instructions * Patient Instructions* Krystal Castrejon MD - 09/05/2021 10:30 AM AIRCRAFT GENERAL REPAIR MECHANIC Images from the original note were not included. Patient Education Achilles Tendinitis CITY PLANNING ENGINEER: Achilles tendinitis is swelling of the tendon that connects your calf muscle to your heel bone. It may happen suddenly or become a chronic condition. Your risk for Achilles tendinitis increases as you age. Contact your healthcare provider if: ?? You have a fever. ?? Your swelling or pain gets worse. ?? You feel or hear a sudden pop near your ankle. ?? You cannot bend your ankle or put pressure on your leg. ?? You have questions about your condition or care. Common signs and symptoms include the following: ?? Pain in your heel that gets worse with activity ?? Swelling in your heel or calf ?? Stiffness in your heel or calf Treatment of Achilles tendinitis may include medicine, physical therapy, or support devices. You may need surgery or other procedures if your Achilles tendinitis does not get better with other treatments. ?? NSAIDs , such as ibuprofen, help decrease swelling, pain, and fever. This medicine is available with or without a doctor's order. NSAIDs can cause stomach bleeding or kidney problems in certain people. If you take blood thinner medicine, always ask your healthcare provider if NSAIDs are safe foryou. Always read the medicine label and follow directions. ?? Take your medicine as directed. Contact your healthcare provider if you think your medicine is not helping or if you have side effects. Tell him or her if you are allergic to any medicine. Keep a list of the medicines, vitamins, and herbs you take. Include the amounts, and when and why you take them. Bring the list or the pill bottles to follow-up visits. Carry your medicine list with you in case of an emergency. Manage your Achilles tendinitis: ?? Rest as directed. Rest decreases swelling and prevents your tendinitis from getting worse. Your healthcare provider may tell you to stop your usual training or exercise activities. Ask him when you can return to your normal activities or exercise plan. ?? Apply ice on your Achilles tendon for 15 to 20 minutes every hour or as directed. Use an ice pack, or put crushed ice in a plastic bag. Cover it with a towel. Ice helps prevent tissue damage and decreases swelling and pain. ?? Wear a compression bandage or use tape as directed. This will decrease swelling and pain. Ask your healthcare provider how to wrap a compression bandage or apply tape. If you use a support device ask if you should wear a compression bandage or use tape. ?? Elevate your heel above the level of your heart as often as you can. This will help decrease swelling and pain. Prop your heel on pillows or blankets to keep it elevated comfortably. ?? Stretch as directed when you return to your exercise program. Always warm up your muscles and stretch before you exercise. Do cool down exercises and stretches when you are finished. This will keep your muscles loose and decrease stress on your Achilles tendon. ?? Do bilateral heel drop exercises as directed. Bilateral heel drops strengthen your Achilles tendon. Do not do the following exercise unless your healthcare provider says it is safe: ?? Stand at the edge of a stair or raised step. Hold onto the railing for balance. ?? Place the front part of your foot on the stair or step. Let the back of your foot hang off of the stair or step. ?? Slowly lift your heels off the ground and then slowly lower your heels past the stair. Do not move your heels quickly. This could make your injury worse. Repeat this exercise 20 times or as directed. ?? Slowly increase the time and intensity when you return to your exercise program. Start with short and low intensity exercises. Ask your healthcare provider how and when to increase the time and intensity of your exercise. Wear support devices or supportive shoes as directed. Support devices may include a splint, orthotic, or brace. These devices will decrease pressure on your Achilles tendon and help relieve pain. Supportive shoes will cushion your heel and protect your Achilles tendon. Replace shoes or sneakers that are worn out. Go to physical therapy and practice exercises as directed: A physical therapist teaches you exercises to help improve movement and strength, and decrease pain. Practice these exercises at home as directed. Follow up with your healthcare provider as directed: Write down your questions so you remember to ask them during your visits. ?? 2017 [employer] Information is for End User's use only and may not be sold, redistributed or otherwise used for commercial purposes. All illustrations and images included in CareNotes?? are the copyrighted property of [employer] or [employer]. The above information is an medicaid plan compliance director only. It is not intended as medical advice for individual conditions or treatments. Talk to your doctor, nurse or pharmacist before following any medical regimen to see if it is safe and effective for you. RAFT GENERAL REPAIR MECHANIC documented in this encounter Progress Notes * Krystal Castrejon MD - 09/05/2021 10:30 AM CST Images from the original note were not included. Assessment/Plan: Assessment/Plan Diagnoses and all orders for this visit: Achilles tendinitis of left lower extremity (Primary) Comments: Uncontrolled Recurrent pain/injuries over years so refer to ortho Also advise PT, referral placed for this along with chronic neck/back pain Continue NSAIDS Orders: - Ambulatory referral to Orthopedic Surgery; Future - Ambulatory referral order to Physical Therapy -; Future Chronic neck pain - Ambulatory referral order to Physical Therapy -; Future Chronic bilateral low back pain without sciatica - Ambulatory referral order to Physical Therapy -; Future F/u if symptoms not improving or worsen. Strict return/ED precautions discussed. Subjective: Lorri Ernandez is a 21 y.o. female here for left ankle pain HPI Chief Complaint Patient presents with ??? Ankle Pain previous injurys left pain present appro. 1 mo. originally injured L ankle 6-7y ago in [place] Has had several recurrent injuries Has seen orthopedics in [place], told nothing wrong. Advised not to run or wrestle Has done physical therapy before, but hasn't been doing exercises recently In last month recurrent L posterior and inferior pain, cant jog and walk down the stairs without pain and notes instability. No recent injury. Is taking nsaids and tylenol, but still having persistent symptoms Review of Systems Constitutional: Negative for fever. HENT: Negative for sore throat. Respiratory: Negative for cough and shortness of breath. Gastrointestinal: Negative for diarrhea and vomiting. Musculoskeletal: Positive for arthralgias, back pain and neck pain. Negative for myalgias. Objective: Vital signs were reviewed. Vitals: 09/05/21 1031 BP: 110/70 BP Location: Left arm Patient Position: Sitting Pulse: 86 Resp: 18 Temp: 36.3 ??C (97.4 ??F) TempSrc: Temporal SpO2: 99% Weight: 51.1 kg (112 lb 11.2 oz) Height: 158.2 cm (5' 2.28 ) Physical Exam Gen: NAD, comfortable, appears as stated age Eyes: no conjunctival injection, EOMI ENMT: external ears symmetric CV: Regular rate Pulm: no increased work of breathing Skin: no rashes or nodules, warm and dry MSK/Neuro: symmetric limb movement, TTP posterior L achilles insertion without palpable defect, normal calf squeeze test, mild TTP plantar fascia, no TTP medial or lateral malleoli or base of 5th metatarsal Psych: alert and oriented to person/place/time, appropriate judgment and insight Krystal Castrejon MD RAFT GENERAL REPAIR MECHANIC documented in this encounter Plan of Treatment Scheduled Referrals Name Type Priority Associated Diagnoses Order Schedule Ambulatory referral order to Physical Therapy - Outpatient Referral Routine Achilles tendinitis of left lower extremity Chronic neck pain Chronic bilateral low back pain without sciatica Expected: 09/12/2021 (Approximate), Expires: 09/05/2022 documented as of this encounter Visit Diagnoses Diagnosis Achilles tendinitis of left lower extremity- Primary Chronic neck pain Cervicalgia Chronic bilateral low back pain without sciatica documented in this encounter Care Teams Hair Spinner Relationship Specialty Start Date End Date Krystal Castrejon MD PCP - General Family Medicine 07/12/21 10/19/22 Unknown, Notinfile 07/12/21 documented as of this encounter
--- OUTSIDE RECORDS SUMMARY | 2024-08-05 00:21 | XMS_ITS | Encounter Summary ---
Author Organization [facility] Address [address] [place] [address] Care Team Providers Care Industrial Trainer Name Role Phone Krystal Castrejon MD Primary Care Pro vider Unknown, Notinfile Unavailable Unavailable Reason for Referral * Diagnostic Imaging (Routine) - Closed Specialty Diagnoses / Procedures Referred By Mavis carreon Referred To Contact Diagnoses Left foot pain Procedures XR [place] Left 3+ [place] [address] [place] [address] Phone: tel: fax: [facility] Medicine Referral ID Status Reason Start Date Expiration Date Visits Re quested Visits Authorized [id number] Closed 12/20/2021 01/19/2023 1 1 Reason for Visit * Diagnostic Imaging (Routine) - Closed Specialty Diagnoses / Procedures Referred By Mavis carreon Referred To Contact Diagnoses Left foot pain Procedures [place]R [place] 3+ [place] [address] [place] [address] Phone: tel: fax: [facility] Advanced Medicine Referral ID Status Reason Start Date Expiration Date Visits Re quested Visits Authorized [id number] Closed 12/20/2021 01/19/2023 1 1 Encounter Details Date Type Department Care Team (Latest Contact Info) Description 12/23/2021 9:15 AM CDT - 12/23/2021 11:59 PM CDT Hospital Encounter [facility] Radiology [facility] Advanced Medicine ([facility]) [facility] [place] [address] Left foot pain Discharge Disposition: Discharge to home or self [...] on file Legal Sex Female 6:22 AM TRANSITION LEAD Gender Identity Female 03/11/2020 1:47 PM CDT Sexual Orientation Straight 03/11/2020 1: 47 PM CDT 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 on file documented as of this encounter Medications at Time of Discharge DULoxetine DR (CYMBALTA) 30 mg capsule Take 60 mg by mouth daily 03/01/[address] (CYMBALTA) 60 mg capsule 10/15/2021 03/01/2023 hydrOXYzine (ATARAX) 25 mg tablet 10/15/2021 03/01/2023 OXcarbazepine (TRILEPTAL) 300 mg tablet Take 1 tab (300 mg) twice per day 60 tablet 5 05/16/2021 12/28/2021 Multi-DHA,with vit K, 27 mg iron-800 mcg-260 mg capsule 07/29/2020 12/28/2021 documented as of this encounter Discharge Disposition Disposition Code Departure Means Destination Discharge to home or self care documented in this encounter Plan of Treatment Not on file documented as of this encounter Procedures Procedure Name Priority Date/Time Associated Diagnosis Comments XR FOOT LEFT 3 OR MORE VIEWS Schedule Routine, Read Routine (OP Routine) 12/23/2021 9:24 AM CDT Left foot pain documented in this encounter Results * XR Foot Left [...] No evidence of stress fracture. Procedure Note Puh Mendoza MD - 12/23/2021 EXAM: 1. XR [...] it. Electronically signed by: Phu Mendoza M.D. [facility] COMPLEX MANAGER IMG XR PROCEDURES Final Result documented in this encounter Visit Diagnoses Diagnosis Left foot pain Pain in soft tissues of limb documented in this encounter Care Teams Industrial Trainer Relationship Specialty Start Date End Date Krystal Castrejon MD PCP - General Family Medicine 07/12/21 10/19/22 Unknown, Notinfile 07/12/21 documented as of this encounter
--- OUTSIDE RECORDS SUMMARY | 2024-08-05 00:21 | XMS_ITS | Encounter Summary ---
Author Organization [facility] Address [address] [place] [address] Phone Care Team Providers Care Silk Examiner Name Role Phone Krystal Castrejon MD Primary Care Pro vider Unknown, Notinfile Unavailable Unavailable Encounter Details Date Type Department Care Team (Late st Contact Info) Description 01/05/2022 Telephone [facility] Pediatric Neurology [address] [facility] [address] [place] [address] Janeth Ronquillo MD [address] 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 Thanks, MB * Telephone Encounter - Javy Interiano RN - 01/06/2022 9:[address] Ronquillo, I did neglect to write that in my note. When I spoke to both the patient and her mother, I did speak about the need to follow up with Dr. Castrejon/PCP regarding the low Fe. I had reviewed the Vit D with both as well but that is documented. Would you like to me to contact Dr. Castrejon's office aler them and then ask them to follow up withHeavin? Please let me know ho wI can assist. * Telephone Encounter - Janeth Ronquillo MD - 01/05/2022 6:58 PM CDT From the messages I'm not sure that the Fe deficient anemia was discussed with Elidaleigh ann. Please confirm that she knows and that the results are available to her PCP. Thank you. documented in this encounter Plan of Treatment Not on file documented as of this encounter Visit Diagnoses Not on filedocumented in this encounter Care Teams Silk Examiner Relationship Specialty Start Date End Date Krystal Castrejon MD PCP - General Family Medicine 07/12/21 10/19/22 Unknown, Notinfile 07/12/21 documented as of this encounter
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
--- OUTSIDE RECORDS SUMMARY | 2024-08-05 00:21 | XMS_ITS | Encounter Summary ---
Author Organization [facility] Address [address] [place] [address] Phone Care Team Providers Care Parks And Recreation Manager Name Role Phone Unavailable Primary Care Provider Unavailabl e Encounter Details Date Type Department Care Team (Late st Contact Info) Description 09/29/2020 Telephone [facility] Pediatric Neurology [facility] 2nd [place] [address] [place] [address] Janeth Ronquillo MD [address] [facility] [phone] [place] [address] Social History Tobacco Use Types Packs/Day Years Used Date Smoking Tobacco: Never Smokeless Tobacco: Never Alcohol Use Standard Drinks/Week Comments Yes 0 (1 standard drink = 0.6 oz pur e alcohol) occasional Comments Unknown Sex and Gender Information Value Date Recorded Sex Assigned at Not on file Legal Sex Female 6:22 AM POTASH FLAKER Gender Identity Female 03/11/2020 1:47 PM CDT Sexual Orientation Straight 03/11/2020 1: 47 PM CDT documented as of this encounter Miscellaneous Notes * Telephone Encounter - Tiffany Perera RN - 09/30/2020 1:36 PM POTASH FLAKER Spoke with Lorri to let her know to check her mychart, but discussed with her that OXC level should be a trough and gave instructions for that as noted in mychart msg. Also reviewed Dr. Ronquillo's recommendation and rationale. Denies further questions or concerns. SH FLAKER * Telephone Encounter - Tiffany Perera RN - 09/30/2020 12:05 PM POTASH FLAKER Outgoing mychart to Lorri with order and information. SH FLAKER * Telephone Encounter - Janeth Ronquillo MD - 09/30/2020 11:45 AM POTASH FLAKER From what we know, Trileptal is safe in , but having a seizure is not, so I would continuethis dosing. Thanks, MB SH FLAKER * Telephone Encounter - Tiffany Perera RN - 09/30/2020 10:50 AM POTASH FLAKER Spoke with Lorri. Does have active [employer] now. Would like to get lab(s) done closer to home. Knows I will send order to her via [employer] after checking in with Dr. Ronquillo. Dr. Ronquillo--you wanted an OXC level on Lorri d/t her (see 08/27/2020 phone encounter). Her insurance is active now, so was going to send her an order for that--just want to be sure you don't want anything else with that. Also Lorri's OB asked her to check with you to make sure there wasn't anything else that she could take given that Lorri has a h/o miscarriage, but OB also told Lorri that concern for OXC to have any impact on her was very low since she has been taking it for years. Thank you. SH FLAKER * Telephone Encounter - Paris Simeon - 09/29/2020 10:05 AM CST LVM for patient to call back. SH FLAKER * Telephone Encounter - Paris Simeon - 09/29/2020 10:04 AM CST ----- Message from Adriane Hernandes RN sent at 08/30/2020 2:21 PM POTASH FLAKER ----- Regarding: follow up with [place] and see if insurance started We need OXC level if insurance has activated. 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
--- OUTSIDE RECORDS SUMMARY | 2024-08-05 00:22 | XMS_ITS | Encounter Summary ---
Author Organization [facility] Care Team Providers Care House Principal Name Role Phone Unavailable Primary Care Provider Unavailabl e Encounter Details Date Type Department Care Team (Latest Contact Info) Description 11/11/2015 12:54 PM CDT - 11/11/2015 11:59 PM CDT Hospital Encounter [facility] Kimberly Lema MD [address] [phone] [place] [address] Convulsions (CMS/HCC) Social History Tobacco Use Types Packs/Day Years Used Date Smoking Tobacco: Never Assessed Comments Unknown Sex and Gender Information Value Date Recorded Sex Assigned at Not on file Legal Sex Female 6:22 AM SCALE TECHNICIAN Gender Identity Female 03/11/2020 1:47 PM CDT Sexual Orientation Straight 03/11/2020 1: 47 PM CDT documented as of this encounter Plan of Treatment Not on file documented as of this encounter Procedures Procedure Name Priority Date/Time Associated Diagnosis Comments MRI BRAIN WO CONTRAST Routine 11/11/2015 1:54 PM CDT documented in this encounter Results * MRI Brain WO Contrast (11/11/2015 1:54 PM CDT) Anatomical Region Laterality Modality Head and Neck N/A Magnetic Resonan ce 11/11/2015 1:54 PM CDT Narrative 11/12/2015 4:26 PM CDT SHAI VILLAR M.D. DAVID CARBALLO M.D. FINAL REPORT The radiology attending physician has personally reviewed this study, and has reviewed and/or edited this written report and agrees with it. ACC# ??Date Time ??Exam [id number] Nov 11, 2015 13:54:00 [id number] MRI BRAIN W/O CONTRAST EXAMINATION: ?? Magnetic resonance imaging (MRI) of the brain and brainstem without contrast HISTORY: Questionable seizure TECHNIQUE: Multiplanar multi-weighted MRI of the brain and brainstem was performed without intravenous contrast using the seizure protocol. This included detailed imaging of the hippocampi and temporal lobes. COMPARISON: None available. FINDINGS: There is no evidence of heterotopia, vascular malformation, tumor, or infarct. The hippocampi are symmetric in size and signal. The scalp and calvarium are normal. The superior sagittal sinus demonstrates normal venous flow. The corpus callosum is normal in shape and signal intensity. The posterior fossa is unremarkable. The pituitary and sella are normal. The brainstem and craniocervical junction are unremarkable. The susceptibility weighted sequences reveal no evidence of acute or chronic hemorrhage. The ventricles are normal in size and position without evidence of hydrocephalus. There are no areas of abnormal contrast enhancement. The paranasal sinuses are normal. The visualized portions of the mastoids are unremarkable. The orbits appear normal. Normal flow voids are demonstrated in the carotid arteries and basilar artery. IMPRESSION: ?? No findings to explain the patient's seizures. Requested By: KIMBERLY LEMA M.D. Dictated By: ?? DAVID CARBALLO M.D. ??on Nov 11 2015 ??4:39P This document has been electronically signed by: SHAI VILLAR M.D. on Nov 12 2015 ??4:25P Procedure Note Provider, MD Reza - 12/23/2016 SHAI VILLAR M.D. DAVID CARBALLO M.D. FINAL REPORT The radiology attending physician has personally reviewed this study, and has reviewed and/or edited this written report and agrees with it. ACC# Date Time Exam [id number] Nov 11, 2015 13:54:00 [id number] MRI BRAIN W/O CONTRAST EXAMINATION: Magnetic resonance imaging (MRI) of the brain and brainstem without contrast HISTORY: Questionable seizure TECHNIQUE: Multiplanar multi-weighted MRI of the brain and brainstem was performed without intravenous contrast using the seizure protocol. This included detailed imaging of the hippocampi and temporal lobes. COMPARISON: None available. FINDINGS: There is no evidence of heterotopia, vascular malformation, tumor, or infarct. The hippocampi are symmetric in size and signal. The scalp and calvarium are normal. The superior sagittal sinus demonstrates normal venous flow. The corpus callosum is normal in shape and signal intensity. The posterior fossa is unremarkable. The pituitary and sella are normal. The brainstem and craniocervical junction are unremarkable. The susceptibility weighted sequences reveal no evidence of acute or chronic hemorrhage. The ventricles are normal in size and position without evidence of hydrocephalus. There are no areas of abnormal contrast enhancement. The paranasal sinuses are normal. The visualized portions of the mastoids are unremarkable. The orbits appear normal. Normal flow voids are demonstrated in the carotid arteries and basilar artery. IMPRESSION: No findings to explain the patient's seizures. Requested By: KIMBERLY LEMA M.D. Dictated By: DAVID CARBALLO M.D. on Nov 11 2015 4:39P This document has been electronically signed by: SHAI VILLAR M.D. on Nov 12 2015 4:25P us Historical Provider MD CARRASCO MRI PROCEDURES Final Result documented in this encounter Visit Diagnoses Diagnosis Convulsions (HCC) Other convulsions documented in this encounter
--- OUTSIDE RECORDS SUMMARY | 2024-08-05 00:22 | XMS_ITS | Encounter Summary ---
Author Organization [facility] Address [address] [place] [address] Care Team Providers Care Gis Software Engineer Name Role Phone Unavailable Primary Care Provider Unavailabl e Encounter Details Date Type Department Care Team (Late st Contact Info) Description 06/23/2020 12:40 PM OUTSIDE SALES CONSULTANT Lab [id number] [place] [address] Social History Tobacco Use Types Packs/Day Years Used Date Smoking Tobacco: Never Smokeless Tobacco: Never Alcohol Use Standard Drinks/Week Comments Yes 0 (1 standard drink = 0.6 oz pur e alcohol) occasional Comments Unknown Sex and Gender Information Value Date Recorded Sex Assigned at Not on file Legal Sex Female 6:22 AM OUTSIDE SALES CONSULTANT Gender Identity Female 03/11/2020 1:47 PM CDT Sexual Orientation Straight 03/11/2020 1: 47 PM CDT documented as of this encounter Plan of Treatment Not on file documented as of this encounter Procedures Procedure Name Priority Date/Time Associated Diagnosis Comments N. GONORRHOEAE/C. TRACHOMATIS AMPLIFICATION Routine 06/23/2020 5:50 AM OUTSIDE SALES CONSULTANT documented in this encounter Results * N. gonorrhoeae/C. trachomatis Amplification Urine (06/23/2020 5:50 AM OUTSIDE SALES CONSULTANT) C. trachomatis Not Detected Not Detected ALAINA WYNNE N. gonorrhoeae Not Detected Not Detected [facility] Comment: Testing performed by the [facility]. This assay detects Chlamydia trachomatis and Neisseria gonorrhoeae by nucleic acid amplification testing (NAAT). This test is approved by the [place] Food and Drug Administration and the performance characteristics have been verified by the laboratory. The performance characteristics of this test have not been evaluated in women or individuals less than 16 years of age. Urine 06/23/2020 5:50 AM OUTSIDE SALES CONSULTANT 06/23/2020 12:52 PM OUTSIDE SALES CONSULTANT us Notinfile Unknown LAB MICROBIOLOGY - GENERAL ORD ERABLES Final Result [facility] [address] Department [place] [address] documented in this encounter Visit Diagnoses Not on filedocumented in this encounter
--- OUTSIDE RECORDS SUMMARY | 2024-08-05 00:22 | XMS_ITS | Encounter Summary ---
Author Organization [facility] Healthcare Address [address] [place] [address] Care Team Providers Care Inspector Watch Parts Name Role Phone Unavailable Primary Care Provider Unavailabl e Encounter Details Date Type Department Care Team (Latest Contact Info) Description 09/10/2017 12:36 PM PSYCHIATRIC ATTENDANT - 09/10/2017 4:00 PM PSYCHIATRIC ATTENDANT Hospital Encounter [facility] Acute upper respiratory infection Social History Tobacco Use Types Packs/Day Years Used Date Smoking Tobacco: Never Assessed Comments Unknown Sex and Gender Information Value Date Recorded Sex Assigned at Not on file Legal Sex Female 6:22 AM PSYCHIATRIC ATTENDANT Gender Identity Female 03/11/2020 1:47 PM CDT Sexual Orientation Straight 03/11/2020 1: 47 PM CDT documented as of this encounter Last Filed Vital Signs Vital Sign Reading Time Taken Comments Blood Pressure 128/48 09/10/2017 12:49 PM PSYCHIATRIC ATTENDANT Pulse 89 09/10/2017 12:49 PM PSYCHIATRIC ATTENDANT Temperature 36.9 ??C (98.5 ??F) 09/10/2017 12:[address] Respiratory Rate - - Oxygen Saturation 99% 09/10/2017 12:49 PM PSYCHIATRIC ATTENDANT Inhaled Oxygen Concentration - - Weight 47.4 kg (104 lb 8 oz) 09/10/2017 12:49 PM PSYCHIATRIC ATTENDANT Height 162.6 cm (5' 4 ) 09/10/2017 12:49 PM PSYCHIATRIC ATTENDANT Body Mass Index 17.94 09/10/2017 12:49 PM PSYCHIATRIC ATTENDANT Body Mass Index Percentile 10.89% 09/10/2017 12: 49 PM PSYCHIATRIC ATTENDANT Growth Chart: [facility] (Girls, 2- 20 Years) documented in this encounter Medications at Time of Discharge OXcarbazepine (TRILEPTAL) 300 mg tablet 1.5 tablet PO BID 04/07/2016 06/06/2019 documented as of this encounter Plan of Treatment Not on file documented as of this encounter Procedures Procedure Name Priority Date/Time Associated Diagnosis Comments XR CHEST PA LATERAL 2 VIEWS Routine 09/10/2017 2:08 PM PSYCHIATRIC ATTENDANT INFLUENZA A/B ANTIGENS, RAPID Routine 09/10/2017 1:10 PM PSYCHIATRIC ATTENDANT documented in this encounter Results * XR Chest Pa Lateral 2 Views (09/10/2017 2:08 PM PSYCHIATRIC ATTENDANT) Anatomical Region Laterality Modality Body, Chest N/A Radiographic Chiqui ging 09/10/2017 2:08 PM PSYCHIATRIC ATTENDANT Impressions 09/10/2017 2:55 PM PSYCHIATRIC ATTENDANT ?? 1. ??Heart size within normal limits. 2. ??Lung santos clear. THIS IS AN ELECTRONICALLY VERIFIED REPORT 09/10/2017 2:52 PM: ??Ric Chamorro M.D. ?? Ric Chamorro M.D. RB:dawit 02:52 PM 02:52 PM FC [EOD] Narrative 09/10/2017 2:55 PM PSYCHIATRIC ATTENDANT EXAMINATION: ??Chest two-view HISTORY: ??Cough, low grade fever, headache, and upper chest/throat pain since last night. COMPARISON: ??None TECHNIQUE: ??PA and lateral views of the chest have been submitted FINDINGS: ??The cardiomediastinal silhouette is within normal limits. ??The lung santos are clear. ??The bony thorax is unremarkable. Procedure Note Provider, MD Reza - 01/04/2021 EXAMINATION: Chest two-view HISTORY: Cough, low grade fever, headache, and upper chest/throat painsince last night. COMPARISON: None TECHNIQUE: PA and lateral views of the chest have been submitted FINDINGS: The cardiomediastinal silhouette is within normal limits. Thelung santos are clear. The bony thorax is unremarkable. IMPRESSION: 1. Heart size within normal limits. 2. Lung santos clear. THIS IS AN ELECTRONICALLY VERIFIED REPORT 09/10/2017 2:52 PM: Ric Chamorro M.D. Ric Chamorro M.D. RB:[email or web address] 02:52 PM 02:52 PM [facility] [EOD] Marci REESE IMG XR PROCEDURES Final Res ult * Influenza A/B antigens, rapid (09/10/2017 1:10 PM PSYCHIATRIC ATTENDANT) Pathologist [facility] Influenza A Ag NEGATIVE NEGATIVE 09/10/2017 1:38 PM PSYCHIATRIC ATTENDANT [facility] HISTORICAL RESULTS Influenza B Ag NEGATIVE NEGATIVE 09/10/2017 1:38 PM PSYCHIATRIC ATTENDANT [facility] HISTORICAL RESULTS Comment: A NEGATIVE RESULT DOES NOT ELIMINATE THE POSSIBILITY OF AN ?? INFLUENZA A OR B INFECTION. ??INADEQUATE SPECIMEN COLLECTION ?? OR IMPROPER SAMPLE HANDLING/TRANSPORT, OR LOW LEVELS OF ?? VIRAL SHEDDING MAY YIELD A FALSE NEGATIVE RESULT. 09/10/2017 1:10 PM PSYCHIATRIC ATTENDANT 09/10/2017 1:19 PM PSYCHIATRIC ATTENDANT Narrative [facility] HISTORICAL RESULTS - 09/10/2017 1:38 PM PSYCHIATRIC ATTENDANT Collected By [facility] Farhan Tee LAB MICROBIOLOGY - GENERAL ORDER ANTOLIN Final Result [facility] HISTORICAL RESULTS documented in this encounter Visit Diagnoses Diagnosis Acute upper respiratory infection Acute upper respiratory infections of unspecified site documented in this encounter
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
--- OUTSIDE RECORDS SUMMARY | 2024-08-05 00:22 | XMS_ITS | Encounter Summary ---
Author Organization [facility] Address [address] [place] [address] Phone Care Team Providers Care Renewals Manager Name Role Phone Unavailable Primary Care Provider Unavailabl e Encounter Details Date Type Department Care Team (Late st Contact Info) Description 07/29/[address] [facility] Pediatric Neurology [facility] 2nd [place] [address] [place] [address] Arabella Mcnally MD [address] [place], [place] [id number] Social History Tobacco Use Types Packs/Day Years Used Date Smoking Tobacco: Never Assessed Comments Unknown Sex and Gender Information Value Date Recorded Sex Assigned at Not on file Legal Sex Female 6:22 AM INFLATABLE BUILDINGS LAMINATOR Gender Identity Female 03/11/2020 1:47 PM CDT Sexual Orientation Straight 03/11/2020 1: 47 PM CDT documented as of this encounter Miscellaneous Notes * Telephone Encounter - Anabel Piedra RN - 07/31/2018 3:17 PM CST Spoke with Mom and advised of above. She is in agreement. Call transferred to Cira patch worker. ATABLE BUILDINGS LAMINATOR * Telephone Encounter - Janeth Ronquillo MD - 07/30/2018 5:27 PM CST A light practice should be ok. Please have mom call to schedule appointment. Thanks MB ATABLE BUILDINGS LAMINATOR * Telephone Encounter - Anabel Piedra RN - 07/30/2018 11:23 AM CST Wt: 44.2 kg OXC 300 mg; 1.5 tabs (450 mg) BID Prozac 40 mg QD Spoke with Mom, she is doing better, still achy today, still diarrhea, still has a BATISTA, it wasn't the flu. She was wide awake this am at her usual time to get up for school. Mom reports that she and Dad had a little URI recently but they didn't have fever and body aches. Lorri was sicker than they were, she had a temp, achy, vomited X1, diarrhea, BATISTA. Mom wonders if her immunity is worse because it seemed to hit her so much harder than it did Mom and Dad. Started her KLO bridge 0.25 mg last evening. 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 She has a wrestling tournament this weekend, she is good enough that she has college school principal coming to see her. The problem is that there is a practice tomorrow that she has to attend if she is to wrestle this weekend. Mom has been in touch with the women's lacrosse coach and she knows what has been going on. Can she still go to the practice Wed? Advised Mom that she should be fever free for 24 hrs, (Mom said no fever since last night.) She seems to be tolerating the KLO dose fine this am. After dose she was on the couch watching TV. Asked Mom if the women's lacrosse coach would let her do a light practice and Mom said she thought she would. 12:00 Mom called back to report that she just talked with Elidaleigh ann on the phone (Mom is at work,) jada told Mom she feels better, she is still a little achy, the back of her neck hurts. She said it hurts to swallow, but her throat is not sore, which neither Mom nor I understood. Clarified withMom that flu swab was negative, ED told her it was just a virus. They did not swab her for strep. Advised Mom to keep an eye on sore throat and sore neck, and that she may want to call PCP about that. ATABLE BUILDINGS LAMINATOR ATABLE BUILDINGS LAMINATOR ATABLE BUILDINGS LAMINATOR * Telephone Encounter - Janeth Ronquillo MD - 07/30/2018 11:17 AM INFLATABLE BUILDINGS LAMINATOR Please call Lorri's mom and see how Lorri is doing today. Thanks MB ATABLE BUILDINGS LAMINATOR * Telephone Encounter - Arabella Mcnally MD - 07/29/2018 5:07 PM INFLATABLE BUILDINGS LAMINATOR Called by Dr. Garrison re: Lorri Deshpande, a 17 yo F with history of partial seizures on Trileptal 450 mg BID (~ 20mg/kg/day). She has presented to [facility] with viral illness with cough, fevers, nausea, vomiting, diarrhea. Basic labs look OK. She has had 15 of her typical, very brief seizures today with whole body shaking and typical aura. She reportedly took her full dose of Trileptal this morning (total of 900 mg, last tab at 11 AM). She told Dr. Garrison that she typically increases her Trileptal dose when she's sick. I reviewed her records, and this is not part of her sick plan, nor is appropriate for this medication. She may take an evening dose of her medication given that it has been several hours since her last dose, but should not increase her dose without discussing withDr. Ronquillo, especially not on a temporary basis. She has reportedly never taken benzodiazepines before. I therefore recommended 0.25 mg BID Clonazepam for 3 days (weight 46.8 kg) with test dose in the ED. Recommended advising her that she may not drive, seizure precautions (including showering instead of bathing, avoiding flames) and briefly reviewing seizure first aid and return precautions. She should call the Neuro office to check in with Dr. Ronquillo tomorrow re: further medication changes and to schedule outpatient follow up. Dr. Garrison agreed with this plan. ATABLE BUILDINGS LAMINATOR documented in this encounter Plan of Treatment Not on file documented as of this encounter Visit Diagnoses Not on filedocumented in this encounter Historical Medications * This list may reflect changes made after this encounter. OXcarbazepine (TRILEPTAL) 300 mg tablet 1.5 tablet PO BID 04/07/2016 06/06/2019 added in this encounter
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
--- OUTSIDE RECORDS SUMMARY | 2024-08-05 00:22 | XMS_ITS | Encounter Summary ---
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 Role Phone Unavailable Primary Care Provider Unavailabl e Encounter Details Date Type Department Care Team (Late st Contact Info) Description 11/02/2019 9:13 PM CDT - 11/03/2019 2:00 AM CDT Hospital Encounter [facility] Emergency Department [address] [place] [id number] Unknown, Elizabeth Valladares MD [address] [facility] [place] [address] Discharge Disposition: Discharge to home or self care Social History Tobacco Use Types Packs/Day Years Used Date Smoking Tobacco: Never Smokeless Tobacco: Never Alcohol Use Standard Drinks/Week Comments Yes 0 (1 standard drink = 0.6 oz pur e alcohol) occasional Comments Unknown Sex and Gender Information Value Date Recorded Sex Assigned at Not on file 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 Gender Identity Female 03/11/2020 1:47 PM CDT Sexual Orientation Straight 03/11/2020 1: 47 PM CDT documented as of this encounter Last Filed Vital Signs Vital Sign Reading Time Taken Comments Blood Pressure 102/39 11/02/2019 9:24 PM CDT Pulse 99 11/02/2019 9:24 PM CDT Temperature 37 ??C (98.6 ??F) 11/02/2019 9:24 PM CDT Respiratory Rate - - Oxygen Saturation 98% 11/02/2019 9:24 PM CDT Inhaled Oxygen Concentration - - Weight 50 kg (110 lb 3.7 oz) 11/02/2019 9:24 PM CDT Height 165.1 cm (5' 5 ) 11/02/2019 9:24 PM CDT Body Mass Index 18.34 11/02/2019 9:24 PM CDT documented in this encounter Medications at Time of Discharge etonogestrel (NEXPLANON) 68 mg implant 68 each by subdermal route continuous 1 FLUoxetine (PROzac) 40 mg capsule Take 40 mg by mouth daily 0 magnesium oxide 400 mg capsule Take 1 cap daily 30 each 5 08/06/2018 1 melatonin 5 mg tablet 1 tab at bedtime 30 tablet 5 08/06/2018 0 OXcarbazepine (TRILEPTAL) 300 mg tablet Take 1/2 tab (150 mg) in pm along with one 600 mg tab for total evening dose of 750 mg. 15 tablet 5 06/06/2019 1 OXcarbazepine (TRILEPTAL) 600 mg tablet Take 1 tablet (600 mg total) by mouth 2 (two) times a day 60 tablet 11 06/06/2019 1 prazosin (MINIPRESS) 2 mg capsule Take 2 mg by mouth nightly 1 documented as of this encounter Discharge Disposition Disposition Code Departure Means Destination Discharge to home or self care documented in this encounter Plan of Treatment Not on file documented as of this encounter Procedures Procedure Name Priority Date/Time Associated Diagnosis Comments SCAN - LABS 11/13/2019 12:00 AM CDT XR CHEST 1 VIEW 11/03/2019 12:[address] ABDOMEN PELVIS W CONTRAST 11/03/2019 12:00 AM CDT URINALYSIS AND REFLEX TO MICROSCOPIC Routine 11/02/2019 11:45 PM CDT CBC WITH AUTO DIFFERENTIAL Routine 11/02/2019 10:50 PM CDT COMPREHENSIVE METABOLIC PANEL Routine 11/02/2019 10:50 PM CDT GROUP A STREP, RAPID SCREEN GEN LAB Routine 11/02/2019 10:30 PM CDT INFLUENZA A/B PCR Routine 11/02/2019 9:2 5 PM CDT documented in this encounter Results * SCAN - LABS (11/13/2019 12:00 AM CDT) Narrative 11/13/2019 12:00 AM CDT Ordered by an unspecified provider. us Historical Provider Final Res ult * XR Chest 1 View (11/03/2019 12:00 AM CDT) Anatomical Region Laterality Modality Body, Chest N/A Radiographic Chiqui ging 11/03/2019 12:4 2 AM CDT Narrative 11/03/2019 12:44 AM CDT Patient Name: SORAIDA CALDWELL ?Ordering Dr: Elizabeth Reynolds MD ?? D.O.B: 2000 ? Exam Date: 11/03/19 ?? 0000 ?? Age: 19 ?Sex: Female ? MR#: [id number] ?? Loc: ? RADIOLOGY REPORT ?? Order #[id number] ?? Radiology ? Chest 1 View Portable ? Signed ? EXAM DESCRIPTION: ??Chest 1 View Portable ? REASON FOR STUDY: ??fever, cough, and seizure starting today recent traveled to ?? [place] ? TECHNIQUE: ??Portable upright AP radiographic view of the chest acquired. ? COMPARISON: ??02/19/2019 ? FINDINGS: ? LUNGS/PLEURA: No focal consolidation or pneumothorax. No pleural effusion. ? HEART/MEDIASTINUM: Heart size is stable. ??Unchanged mediastinal and hilar ?? contours. ? HARDWARE/LINES/TUBES: None. ? BONES: No acute findings. ? OTHER: No other significant finding. ? IMPRESSION: ??No acute cardiopulmonary disease. ? THIS IS AN ELECTRONICALLY VERIFIED FINAL REPORT ?? 11/03/2019 12:44 AM - Electronically signed by Paris Will M.D. ?? Paris Will M.D. ? JS: SEJAL ?? D: ??11/03/2019 12:44 AM ?? T: ??11/03/2019 12:44 AM ? Report ID: [id number] ?? Reading Location: ??[id number] ? REPORT ELECTRONICALLY SIGNED IN OTHER VENDOR SYSTEM ?? Resulting Agency Comment E Procedure Note Paris Will MD - 11/03/2019 Patient Name: SORAIDA CALDWELL Dr: Elizabeth Reynolds MD D.O.B: 2000 Exam Date: 11/03/19 0000 Age: 19 Sex: Female MR#: [id number] Loc: RADIOLOGY REPORT Order #[id number] Radiology Chest 1 View Portable Signed EXAM DESCRIPTION: Chest 1 View Portable REASON FOR STUDY: fever, cough, and seizure starting today [place]ed to [place] TECHNIQUE: Portable upright AP radiographic view of the chest acquired. COMPARISON: 02/19/2019 FINDINGS: LUNGS/PLEURA: No focal consolidation or pneumothorax. No pleuraleffusion. HEART/MEDIASTINUM: Heart size is stable. Unchanged mediastinal and hilar contours. HARDWARE/LINES/TUBES: None. BONES: No acute findings. OTHER: No other significant finding. IMPRESSION: No acute cardiopulmonary disease. THIS IS AN ELECTRONICALLY VERIFIED FINAL REPORT 11/03/2019 12:44 AM - Electronically signed by Paris Will M.D. JS: SEJAL Report ID: [id number] Reading Location: [place] [address] REPORT ELECTRONICALLY SIGNED IN OTHER VENDOR SYSTEM us Elizabeth Reynolds MD IMG XR PROCEDURES Final R esult * CT Abdomen Pelvis W Contrast (11/03/2019 12:00 AM CDT) Anatomical Region Laterality Modality Body N/A Computed Tomogra phy 11/03/2019 12:2 5 AM CDT Narrative 11/03/2019 12:38 AM CDT Patient Name: SORAIDA CALDWELL C ?Ordering Dr: Elizabeth Reynolds MD ?? D.O.B: 2000 ? Exam Date: 03/16/20 ?? 0000 ?? Age: 19 ?Sex: Female ? MR#: [id number] ?? Loc: ? RADIOLOGY REPORT ?? Order #[id number] ?? CT Scan ? CT Abd/Pelvis W IV Contrast ? Signed ? EXAM DESCRIPTION: ??CT Abd/Pelvis W IV Contrast ? REASON FOR STUDY: ??Right lower quadrant pain ? Duration = 1 day ? TECHNIQUE: ??CT scan of the abdomen and pelvis performed with intravenous and ? oral contrast using helical scanning technique with dynamic intravenous ?? contrast injection. Reconstructed coronal and sagittal MPR images reviewed. ?? All images stored on PACS. ? Automated exposure control was used as a dose optimization technique for this ?? examination. ? CONTRAST TYPE/DOSE: ??100 cc Optiray 350 injected through the left antecubital ?? fossa ? COMPARISON: ??None ? FINDINGS: ? LOWER CHEST: No significant pulmonary abnormalities. No effusion. ? LIVER: Mild periportal edema. ??This is less likely to reflect intrahepatic ?? ductal dilatation. ? GALLBLADDER: No stones identified. No wall thickening or inflammatory changes. ? BILE DUCTS: As above. ??No extrahepatic ductal dilatation identified. ? SPLEEN: Normal size. ??No focal lesions. ? PANCREAS: No identified cystic or solid masses. No significant calcifications. ?? No adjacent inflammation or peripancreatic fluid collections. Pancreatic duct ?? not dilated. ? ADRENALS: Normal. ? KIDNEYS/URINARY TRACT: Subcentimeter hypodensity within the left kidney, too ?? small to characterize but statistically favored to represent a cyst. ??Urinary ?? bladder is unremarkable. ? GI: Evaluation of the gastrointestinal system is limited by lack of distention ?? and bowel prep. ??Insert duodenum the stomach is mildly distended. ??No small ?? bowel obstruction. ??No abnormal colonic wall thickening identified by CT. . ? PERITONEUM: Small amount of pelvic free fluid is simple density. ? RETROPERITONEUM: No mass or adenopathy. ? REPRODUCTIVE: 1.9 cm right ovarian cyst. ??There is a tampon in place. ? VASCULATURE: No abdominal aortic aneurysm. ? MUSCULOSKELETAL: No significant abnormality. ? OTHER: No other abnormality. ? IMPRESSION: ? 1. ??Appendix is not reliably seen. ??There is no secondary evidence of ?? appendicitis at this time. ??Recommend correlation with serial abdominal ?? examinations. ? 2. ??1.9 cm right ovarian cyst. ??If this is felt to be responsible for ?? patient's symptomatology, consideration may be given to ultrasound. ? 3. ??Small amount of pelvic free fluid, likely physiologic. ? 4. ??Mild periportal edema. ??This is less likely reflect intrahepatic ductal ?? dilatation. ? THIS IS AN ELECTRONICALLY VERIFIED FINAL REPORT ?? 11/03/2019 12:38 AM - Electronically signed by Ny Fam ?? Ny Fam ? BG: BG ?? D: ??11/03/2019 12:38 AM ?? T: ??11/03/2019 12:38 AM ? Report ID: [id number] ?? Reading Location: ??[id number] ? REPORT ELECTRONICALLY SIGNED IN OTHER VENDOR SYSTEM ?? Resulting Agency Comment E Procedure Note Ny Fam MD - 11/03/2019 Patient Name: SORAIDA CALDWELL Dr: Elizabeth Reynolds MD D.O.B: 2000 Exam Date: 11/03/19 0000 Age: 19 Sex: Female MR#: [id number] Loc: RADIOLOGY REPORT Order #[id number] CT Scan CT Abd/Pelvis W IV Contrast Signed EXAM DESCRIPTION: CT Abd/Pelvis W IV Contrast REASON FOR STUDY: Right lower quadrant pain Duration = 1 day TECHNIQUE: CT scan of the abdomen and pelvis performed with intravenousand oral contrast using helical scanning technique with dynamic intravenous contrast injection. Reconstructed coronal and sagittal MPR imagesreviewed. All images stored on PACS. Automated exposure control was used as a dose optimization technique forthis examination. CONTRAST TYPE/DOSE: 100 cc Optiray 350 injected through the leftantecubital fossa COMPARISON: None FINDINGS: LOWER CHEST: No significant pulmonary abnormalities. No effusion. LIVER: Mild periportal edema. This is less likely to reflectintrahepatic ductal dilatation. GALLBLADDER: No stones identified. No wall thickening or inflammatorychanges. BILE DUCTS: As above. No extrahepatic ductal dilatation identified. SPLEEN: Normal size. No focal lesions. PANCREAS: No identified cystic or solid masses. No significantcalcifications. No adjacent inflammation or peripancreatic fluid collections. Pancreaticduct not dilated. ADRENALS: Normal. KIDNEYS/URINARY TRACT: Subcentimeter hypodensity within the left kidney,too small to characterize but statistically favored to represent a cyst.Urinary bladder is unremarkable. GI: Evaluation of the gastrointestinal system is limited by lack ofdistention and bowel prep. Insert duodenum the stomach is mildly distended. Nosmall bowel obstruction. No abnormal colonic wall thickening identified by CT.. PERITONEUM: Small amount of pelvic free fluid is simple density. RETROPERITONEUM: No mass or adenopathy. REPRODUCTIVE: 1.9 cm right ovarian cyst. There is a tampon in place. VASCULATURE: No abdominal aortic aneurysm. MUSCULOSKELETAL: No significant abnormality. OTHER: No other abnormality. IMPRESSION: 1. Appendix is not reliably seen. There is no secondary evidence of appendicitis at this time. Recommend correlation with serial abdominal examinations. 2. 1.9 cm right ovarian cyst. If this is felt to be responsible for patient's symptomatology, consideration may be given to ultrasound. 3. Small amount of pelvic free fluid, likely physiologic. 4. Mild periportal edema. This is less likely reflect intrahepaticductal dilatation. THIS IS AN ELECTRONICALLY VERIFIED FINAL REPORT 11/03/2019 12:38 AM - Electronically signed by Ny Fam BG: BG Report ID: [id number] Reading Location: [place] [address] REPORT ELECTRONICALLY SIGNED IN OTHER VENDOR SYSTEM Elizabeth Reynolds MD IM CT PROCEDURES Final R esult * (ABNORMAL) Urinalysis reflex to microscopic (11/02/2019 11:45 PM CDT) Ur Collection Type CLEAN CATCH [facility] Urine Color YELLOW YELLOW [facility] Urine Clarity CLEAR CLEAR [facility] Urine Glucose (UA) NORMAL NEGATIVE mg/dL [facility] Urine Bilirubin NEGATIVE NEGATIVE mg/dl [facility] Urine Ketones 40(A) NEGATIVE mg/dL [facility] Ur Specific [place] 1.020 1.005 - 1.025 [facility] Urine Blood 0.03(A) NEGATIVE mg/dl [facility] Urine pH 8.0 5.0 - 9.0 [facility] Urine Protein NEGATIVE NEGATIVE mg/dL [facility] Urine Urobilinogen 1 <2 E.U./dL [facility] Urine Nitrite NEGATIVE NEGATIVE [facility] Ur Leukocyte Esterase NEGATIVE NEGATIVE Will/ul [facility] Ur Microscopic Review Not Indicated [facility] Urine RBC 2 0 - 2 /HPF [facility] Urine WBC 1 0 - 2 /HPF [facility] Urine Mucus RARE /LPF [facility] Ur Squamous Epith Cells Rare /LPF [facility] 11/02/2019 11:4 5 PM CDT 11/02/2019 11:50 PM CDT Narrative [facility] - 11/03/2019 1:02 AM CDT mp Clean catch Resulting Agency Comment ER us Elizabeth Reynolds MD LAB URINE ORDERABLES Vandana l Result [facility] [address] [phone] * (ABNORMAL) Comprehensive metabolic panel (11/02/2019 10:50 PM CDT) Sodium 136 135 - 145 mmol/L [facility] Potassium 3.6 3.3 - 5.1 mmol/L [facility] Chloride 100 96 - 108 mmol/L [facility] Carbon Dioxide 21(L) 22 - 32 mmol/L [facility] Anion Gap 15 7 - 16 [facility] Glucose 98 70 - 100 mg/dL [facility] BUN 7(L) 8 - 25 mg/dL [facility] Creatinine 0.6 0.5 - 1.1 mg/dL [facility] Comment: NOTE: Estimated GFR (Cockroft-Gault) will NOT be calculated unless patient Height and Weight were entered. Also, Kidney Disease Stage (GFR) and Estimated GFR (Cockroft-Gault) will NOT be calculated if Creatinine result is <0.2. Kidney Disease Stage >90 mL/MIN [facility] Comment: NOTE; ??The GFR is an [...] failure or on dialysis Est GFR (Cockcroft-G) 119 ml/MIN [facility] Comment: Estimated GFR(Cockroft-Gault)is used to calculate patient medication dosage Calcium 9.5 8.6 - 10.3 mg/dL [facility] Total Protein 8.0 6.4 - 8.3 g/dL [facility] Albumin 4.7 3.5 - 5.0 g/dL [facility] Globulin 3.3 2.3 - 3.5 gm/dL [facility] Albumin/Globulin Ratio 1.4 1.1 - 1.8 [facility] Total Bilirubin 0.3 0.0 - 1.2 mg/dL [facility] AST 18 0 - 32 U/L [facility] ALT 11 0 - 33 U/L [facility] Alkaline Phosphatase 73 35 - 104 U/L [facility] 11/02/2019 10:5 0 PM CDT 11/02/2019 10:56 PM CDT Narrative Resulting Agency Comment ER Elizabeth Reynolds MD LAB BLOOD ORDERABLES Vandana crews Result [facility] [address] [place] [address] * (ABNORMAL) CBC with auto differential (11/02/2019 10:50 PM CDT) WBC 8.5 3.8 - 9.9 X10 3/ul [facility] RBC 4.41 3.90 - 5.20 x10 6/ul [facility] Hemoglobin 12.3 11.9 - 15.5 g/dL [facility] Hct 36.2 35.6 - 45.5 % [facility] MCV 82.1 81.3 - 96.4 fl [facility] MCH 27.9 27.1 - 33.3 pg [facility] MCHC 34.0 32.3 - 35.7 g/dl [facility] RDW 13.7 11.1 - 14.9 % [facility] Plt Count 245 150 - 400 x10 3/ul [facility] MPV 8.9(L) 9.1 - 12.3 fl [facility] Neut % 80.1 % [facility] [employer] [facility] Immature Gran % 0.4 % [facility] Lymph % 7.8 % [facility] [employer] [place] % 9.8 % [facility] [employer] [facility] Rad[facility] Eos % 1.2 % [facility] [employer] [facility] Rad[facility] AUTO BASO % 0.7 % [facility] NEUTROPHIL ABS # 6.8(H) 1.7 - 6.5 x10 3/ul [facility] Immature Gran # 0.0 0.0 - 0.1 x10 3/ul [facility] Absolute Lymphs (auto) 0.7(L) 0.8 - 3.3 x10 3/ul [facility] Absolute Monos (auto) 0.8 0.2 - 0.8 x10 3/ul [facility] Absolute Eos (auto) 0.1 0.0 - 0.5 x10 3/ul [facility] BASOPHIL ABS # 0.1 0.0 - 0.1 x10 3/ul [facility] Nucleat RBC Rel Count 0.0 #/100WBC [facility] NRBC abs 0.00 0.00 - 0.01 x10 3/ul [facility] Absolute Neutrophils 6,800 200 - 8,000 /ul [facility] 11/02/2019 10:5 0 PM CDT 11/02/2019 10:56 PM CDT Narrative Resulting Agency Comment ER us Elizabeth Reynolds MD LAB BLOOD ORDERABLES Vandana crews Result [facility] [address] [phone] * Group A Strep, rapid screen with reflex (11/02/2019 10:30 PM CDT) Strep A DNA NOT DETECTED NEGATIVE [facility] 11/02/2019 10:3 0 PM CDT 11/02/2019 11:20 PM CDT Narrative Resulting Agency Comment ER us Elizabeth Reynolds MD LAB BODY FLUIDS AND STOOL S ORDERABLES Final Result Performing Organization Address City/[facility]/[place] [address], [facility] [phone] * Influenza A/B PCR (11/02/2019 9:25 PM CDT) Influenza A RNA NEGATIVE NEGATIVE [facility] Influenza B RNA NEGATIVE NEGATIVE [facility] 11/02/2019 9:25 PM CDT 11/02/2019 9:37 PM CDT Narrative [facility] - 11/02/2019 10:14 PM CDT Collected By te Resulting Agency Comment ER us Kadie Vargas NP LAB MICROBIOLOGY - GENERAL OR DERABLES Final Result Performing Organization Address City/[facility]/[place] [address], [facility] [phone] documented in this encounter Visit Diagnoses Not on filedocumented in this encounter
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
--- OUTSIDE RECORDS SUMMARY | 2024-08-05 00:22 | XMS_ITS | Encounter Summary ---
Author Organization [facility] Address [address] [place] [address] Care Team Providers Care Seafood Packer Name Role Phone Unavailable Primary Care Provider Unavailabl e Encounter Details Date Type Department Care Team (Latest Contact Info) Description 12/12/2016 7:39 PM CDT - 12/12/2016 11:45 PM CDT Hospital Encounter [facility] Fermin Osorio MD [address] [facility] [address] Epilepsy without status epilepticus, not intractable (CMS/HCC); Fever; Streptococcus, group A, as the cause of diseases classified elsewhere Social History Tobacco Use Types Packs/Day Years Used Date Smoking Tobacco: Never Assessed Comments Unknown Sex and Gender Information Value Date Recorded Sex Assigned at Not on file 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 Gender Identity Female 03/11/2020 1:47 PM CDT Sexual Orientation Straight 03/11/2020 1: 47 PM CDT documented as of this encounter Last Filed Vital Signs Vital Sign Reading Time Taken Comments Blood Pressure 115/58 12/12/2016 7:56 PM CDT Pulse 113 12/12/2016 7:56 PM CDT Temperature 37 ??C (98.6 ??F) 12/12/2016 7:56 PM CDT Respiratory Rate - - Oxygen Saturation 100% 12/12/2016 7:56 PM CDT Inhaled Oxygen Concentration - - Weight 44.8 kg (98 lb 12.3 oz) 12/12/2016 7:56 P M CDT Height 160 cm (5' 3 ) 12/12/2016 7:56 PM CDT Body Mass Index 17.5 12/12/2016 7:56 PM CDT Body Mass Index Percentile 9.65% 12/12/2016 7:5 6 PM CDT Growth Chart: [facility] (Girls, 2- 20 Years) documented in this encounter Medications at Time of Discharge OXcarbazepine (TRILEPTAL) 300 mg tablet 1.5 tablet PO BID 04/07/2016 06/06/2019 documented as of this encounter Plan of Treatment Not on file documented as of this encounter Procedures Procedure Name Priority Date/Time Associated Diagnosis Comments URINALYSIS, MACRO AND MICRO Routine 12/12/2016 10:00 PM CDT PLASMA OXCARBAZEPINE METABOLITE DRUG LEVEL Routine 12/12/2016 8:37 PM CDT CBC WITH AUTO DIFFERENTIAL Routine 12/12/2016 8:37 PM CDT COMPREHENSIVE METABOLIC PANEL Routine 12/12/2016 8:37 PM CDT STREP A DNA, QUANTITATIVE Routine 12/12/2016 8:25 PM CDT XR CHEST PA LATERAL 2 VIEWS Routine 12/12/2016 12:00 AM CDT documented in this encounter Results * (ABNORMAL) Urinalysis, macro and micro (12/12/2016 10:00 PM CDT) Ur Collection Type CLEAN CATCH Urine Color YELLOW YELLOW Urine Clarity HAZY CLEAR Urine Glucose (UA) NORMAL NORMAL mg/dL Urine Bilirubin NEGATIVE NEGATIVE mg/dl Urine Ketones 20 NEGATIVE mg/dL Ur Specific [place] 1.008 1.005 - 1.025 Urine Blood 0.03(H) NEGATIVE mg/dl Urine pH 5.0 5.0 - 8.0 Urine Protein NEGATIVE NEGATIVE mg/dL Urine Urobilinogen NORMAL NORMAL mg/dL Urine Nitrite NEGATIVE NEGATIVE Ur Leukocyte Esterase 25(H) NEGATIVE Will/ul Ur Microscopic Review Indicated or Ordered Urine RBC 1 0 - 2 /HPF Urine WBC 4 0 - 2 /HPF Urine Bacteria Rare /HPF Urine Mucus RARE /LPF Ur Squamous Epith Cells Rare /LPF 12/12/2016 10:0 0 PM T 12/12/2016 10:06 PM T Narrative [facility] HISTORICAL RESULTS - 12/12/2016 10:17 PM T us Maria T Pérez FEE CLERK LAB URINE ORDERABLES Final Result [facility] HISTORICAL RESULTS * (ABNORMAL) Plasma oxcarbazepine metabolite drug level (12/12/2016 8:37 PM CDT) OXCARBAZEPINE METABOLITE <1(L) 3 - 35 ug/mL Comment: INTERPRETIVE INFORMATION: Oxcarbazepine ?? Therapeutic range: 3-35 ug/mL. ?? Toxic: Greater than 40 ug/mL ?? This test measures monohydroxyoxcarbazepine (MHD). Adverse ?? effects may include dizziness, fatigue, nausea, headache, ?? somnolence, ataxia and tremor. ?? Performed by [email or web address], ?? [address] [facility] [place] [address] ?? [email or web address] Oc Rodriguez MD, Lab. Director ?? 12/12/2016 8:37 PM CDT 12/12/2016 8:45 PM CDT Maria T Pérez FEE CLERK LAB BLOOD ORDERABLES Final Result [facility] HISTORICAL RESULTS * (ABNORMAL) Comprehensive metabolic panel (12/12/2016 8:37 PM CDT) [facility] Sodium 136 135 - 145 mmol/L Potassium 3.9 3.4 - 4.7 mmol/L Chloride 96 96 - 108 mmol/L Carbon Dioxide 22 22 - 32 mmol/L Anion Gap 18(H) 7 - 16 Glucose 101(H) 70 - 100 mg/dL BUN 13 5 - 18 mg/dL Creatinine 0.9 0.5 - 1.1 mg/dL Comment: NOTE: Estimated GFR (Cockroft-Gault) will NOT be calculated unless patient Height and Weight were entered. Also, Kidney Disease Stage (GFR) and Estimated GFR (Cockroft-Gault) will NOT be calculated if Creatinine result is <0.2. Kidney Disease Stage TNP mL/MIN Est GFR (Cockcroft-G) TNP ml/MIN Calcium 9.2 8.4 - 10.2 mg/dL Total Protein 8.3 6.4 - 8.3 g/dL Albumin 4.6(H) 3.2 - 4.5 g/dL Globulin 3.7(H) 2.3 - 3.5 gm/dL Albumin/Globulin Ratio 1.2 1.1 - 1.8 Total Bilirubin 0.5 0.0 - 1.2 mg/dL AST 18 15 - 50 U/L ALT 9 0 - 33 U/L Alkaline Phosphatase 114 0 - 186 U/L 12/12/2016 8:37 PM CDT 12/12/2016 8:45 PM CDT us Maria T Pérez NP LAB BLOOD ORDERABLES Final Result [facility] HISTORICAL RESULTS * (ABNORMAL) CBC with auto differential (12/12/2016 8:37 PM CDT) WBC 14.7(H) 4.6 - 10.2 x10 3/ul RBC 4.85(H) 3.76 - 4.80 x10 6/ul Hemoglobin 12.7 11.0 - 15.0 g/dl Hct 38.3 33.0 - 43.0 % MCV 79.0(L) 80.0 - 97.0 fl MCH 26.2(L) 27.0 - 31.2 pg MCHC 33.2 31.8 - 35.4 g/dl RDW 14.2 11.6 - 14.8 % Plt Count 327 124 - 400 x10 3/ul MPV 8.7 7.4 - 10.4 fl Neut % 84.4 37.0 - 85.0 % Immature Gran % 0.5 0.0 - 3.0 % Lymph % 8.6 5.0 - 45.0 % 12/12/2016 8:48 PM CDT [facility] [place]er % 5.7 3.0 - 15.0 % Eos % 0.1 0.0 - 7.0 % Baso % 0.7 0.0 - 2.0 % 12/12/2016 8:48 PM CDT [facility] Absolute Neuts (auto) 12.4(H) 1.7 - 8.7 x10 3/ul Immature Gran # 0.1 0.0 - 0.3 x10 3/ul Absolute Lymphs (auto) 1.3 0.2 - 4.6 x10 3/ul Absolute Monos (auto) 0.8 0.1 - 1.5 x10 3/ul Absolute Eos (auto) 0.0 0.0 - 0.7 x10 3/ul Absolute Basos (auto) 0.1 0.0 - 0.2 x10 3/ul 12/12/2016 8:37 PM CDT 12/12/2016 8:45 PM CDT us Maria T Pérez NP LAB BLOOD ORDERABLES Final Result [facility] HISTORICAL RESULTS * Strep A DNA, quantitative (12/12/2016 8:25 PM CDT) [facility] Rapid Strep A POSITIVE NEGATIVE Comment: GROUP A STREP ARE PREDICTABLY SUSCEPTIBLE TO PENICILLIN, WHICH IS THE DRUG OF CHOICE. SUSCEPTIBILITY STUDIES ARE NOT ROUTINELY PERFORMED. 12/12/2016 8:25 PM CDT 12/12/2016 8:45 PM CDT us Fermin Michael MD LAB BODY FLUIDS AND S TOOLS ORDERABLES Final Result [facility] HISTORICAL RESULTS * XR Chest Pa Lateral 2 Views (12/12/2016 12:00 AM CDT) Anatomical Region Laterality Modality Body, Chest N/A Radiographic Chiqui ging 12/12/2016 Impressions 12/12/2016 9:02 PM CDT ??No focal airspace opacity or other acute abnormality identified. THIS IS AN ELECTRONICALLY VERIFIED REPORT 12/12/2016 8:59 PM: ??Keshav Henry M.D. ?? Keshav Henry M.D. AR:cady 08:59 PM 08:59 PM RYN [EOD] Narrative 12/12/2016 9:02 PM CDT EXAMINATION: ??Chest PA and lateral HISTORY: ??Shortness of breath and fever x1 day COMPARISON: ??None TECHNIQUE: ??PA and lateral views of the chest FINDINGS: No focal airspace opacity, pleural effusion, or pneumothorax is identified. Heart size is normal without pulmonary edema. Upper abdomen and visualized osseous structures reveal no acute abnormality. Procedure Note Provider, MD Reza - 01/04/2021 EXAMINATION: Chest PA and lateral HISTORY: Shortness of breath and fever x1 day COMPARISON: None TECHNIQUE: PA and lateral views of the chest FINDINGS: No focal airspace opacity, pleural effusion, or pneumothorax is identified. Heart size is normal without pulmonary edema. Upper abdomenand visualized osseous structures reveal no acute abnormality. IMPRESSION: No focal airspace opacity or other acute abnormalityidentified. THIS IS AN ELECTRONICALLY VERIFIED REPORT 12/12/2016 8:59 PM: Keshav Henry M.D. Keshav Henry M.D. AR:cady 08:59 PM 08:59 PM RYN [EOD] us Fermin Michael MD IMG XR PROCEDURES Fin al Result documented in this encounter Visit Diagnoses Diagnosis Epilepsy without status epilepticus, not intractable (HCC) Fever Fever, unspecified Streptococcus, group A, as the cause of diseases classified elsewhere documented in this encounter
--- OUTSIDE RECORDS SUMMARY | 2024-08-05 00:22 | XMS_ITS | Encounter Summary ---
Author Organization [facility] Address [address] [place] [address] Phone Care Team Providers Care Prison Guard Supervisor Name Role Phone Unavailable Primary Care Provider Unavailabl e Encounter Details Date Type Department Care Team (Late st Contact Info) Description 07/31/2018 Telephone [facility] Pediatric Neurology [facility] 2nd [place] [address] [place] [address] Justin Romero Social History Tobacco Use Types Packs/Day Years Used Date Smoking Tobacco: Never Assessed Comments Unknown Sex and Gender Information Value Date Recorded Sex Assigned at Not on file 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 ILE INSTRUMENT TECHNICIAN * Telephone Encounter - Justin Romero - 07/31/2018 11:41 AM CST Mom RYC. She informed that she would be available to talk after 3pm. (from prior phone note) ILE INSTRUMENT TECHNICIAN documented in this encounter Plan of Treatment Not on file documented as of this encounter Visit Diagnoses Not on filedocumented in this encounter
--- OUTSIDE RECORDS SUMMARY | 2024-08-05 00:22 | XMS_ITS | Encounter Summary ---
Author Organization [facility] Healthcare Address [address] [place] [address] Care Team Providers Care Direct Service Worker Name Role Phone Unavailable Primary Care Provider Unavailabl e Encounter Details Date Type Department Care Team (Late st Contact Info) Description 06/23/2020 3:41 AM INCLINOMETER TESTER - 06/23/2020 6:23 AM INCLINOMETER TESTER Hospital Encounter [facility] Emergency Department [address] [place] [address] Unknown, Hugh Sim II, MD [address] [place] [address] [place] [address] Blanca Casey DO [address] [place] [address] [place] [address] Discharge Disposition: Discharge to home or self care Social History Tobacco Use Types Packs/Day Years Used Date Smoking Tobacco: Never Smokeless Tobacco: Never Alcohol Use Standard Drinks/Week Comments Yes 0 (1 standard drink = 0.6 oz pur e alcohol) occasional Comments Unknown Sex and Gender Information Value Date Recorded Sex Assigned at Not on file Legal Sex Female 6:22 AM INCLINOMETER TESTER Gender Identity Female 03/11/2020 1:47 PM CDT Sexual Orientation Straight 03/11/2020 1: 47 PM CDT documented as of this encounter Last Filed Vital Signs Vital Sign Reading Time Taken Comments Blood Pressure 120/67 06/23/2020 3:43 AM INCLINOMETER TESTER Pulse 82 06/23/2020 3:43 AM INCLINOMETER TESTER Temperature 37.1 ??C (98.7 ??F) 06/23/2020 3:43 AM CS T Respiratory Rate - - Oxygen Saturation 99% 06/23/2020 3:43 AM INCLINOMETER TESTER Inhaled Oxygen Concentration - - Weight 49.2 kg (108 lb 7.5 oz) 06/23/2020 3:43 A M INCLINOMETER TESTER Height 160 cm (5' 3 ) 06/23/2020 3:43 AM INCLINOMETER TESTER Body Mass Index 19.21 06/23/2020 3:43 AM INCLINOMETER TESTER documented in this encounter Medications at Time of Discharge etonogestrel (NEXPLANON) 68 mg implant 68 each by subdermal route continuous 1 magnesium oxide 400 mg capsule Take 1 cap daily 30 each 5 08/06/2018 1 OXcarbazepine (TRILEPTAL) 300 mg tablet Take 1/2 [...] Date/Time Associated Diagnosis Comments SCAN - LABS 06/30/2020 12:00 AM INCLINOMETER TESTER CTNG MISC Routine 06/23/2020 5:50 AM INCLINOMETER TESTER N. GONORRHOEAE/C. TRACHOMATIS AMPLIFICATION TEST Routine 06/23/2020 5:50 AM INCLINOMETER TESTER CBC WITH AUTO DIFFERENTIAL Routine 06/23/2020 4:31 AM INCLINOMETER TESTER COMPREHENSIVE METABOLIC PANEL Routine 06/23/2020 4:31 AM INCLINOMETER TESTER URINALYSIS, COMPLETE W/REFLEX TO CULTURE Routine 06/23/2020 4:21 AM INCLINOMETER TESTER URINE CULTURE Routine 06/23/2020 4:21 AM INCLINOMETER TESTER INFLUENZA A/B PCR Routine 06/23/2020 4:2 0 AM INCLINOMETER TESTER SCAN - LABS 06/23/2020 12:00 AM INCLINOMETER TESTER documented in this encounter Results * SCAN - LABS (06/30/2020 12:00 AM INCLINOMETER TESTER) Narrative 06/30/2020 12:00 AM INCLINOMETER TESTER Ordered by an unspecified provider. us Historical Provider MD Final Res ult * CTNG Misc (06/23/2020 5:50 AM INCLINOMETER TESTER) CT Pending Comment COMMENT [facility] Comment: Note: Results via Scanned Reports in EMR or by paper report only. Specimen sent to Reference lab. Results usually in 24 Hours. CTNG Test Name CTNG [facility] TEST [facility] 06/23/2020 5:50 AM INCLINOMETER TESTER 06/23/2020 7:08 AM INCLINOMETER TESTER Narrative Resulting Agency Comment ER Blanca Casey DO LAB BLOOD ORDERABLES Final Resu lt [facility] [address] [place], [place] [address] [phone] [facility] [address] Department [place] [address] * N. gonorrhoeae/C. trachomatis amplification test (06/23/2020 5:50 AM INCLINOMETER TESTER) C. trachomatis RNA TNP [facility] N. gonorrhoeae RNA TNP M [facility] Chlamydia/GC Source URINE [facility] Comment: This assay detects Chlamydia trachomatis and Neisseria gonorrhoeae by nucleic acid amplification testing (NAAT). Disclaimer: This Test is not FDA approved in females less than 14 years of age and in males less than 17 years of age. All positive CT/NG results on non-FDA approved pediatric age group patients have been confirmed positive by repeat testing. 06/23/2020 5:50 AM INCLINOMETER TESTER 06/23/2020 7:05 AM INCLINOMETER TESTER Narrative [facility] - 06/23/2020 7:07 AM INCLINOMETER TESTER Urine collection method First catch lessthan 50ml Collected By tn Urine Resulting Agency Comment ER us Blanca Casey DO LAB MICROBIOLOGY - GENERAL [place] Final Result [address] [phone] * (ABNORMAL) Comprehensive metabolic panel (06/23/2020 4:31 AM INCLINOMETER TESTER) Sodium 137 135 - 145 mmol/L [facility] Potassium 3.7 3.3 - 5.1 mmol/L [facility] Chloride 102 96 - 108 mmol/L [facility] Carbon Dioxide 25 22 - 32 mmol/L [facility] Anion Gap 10 7 - 16 [facility] Glucose 103(H) 70 - 100 mg/dL [facility] BUN 12 8 - 25 mg/dL [facility] Creatinine 0.6 0.5 - 1.1 mg/dL [facility] Comment: NOTE: Estimated GFR (Cockroft-Gault) will NOT be calculated unless patient Height and Weight were entered. Also, Kidney Disease Stage (GFR) and Estimated GFR (Cockroft-Gault) will NOT be calculated if Creatinine result is <0.2. Kidney Disease Stage >90 mL/MIN [facility] Comment: NOTE; ??The GFR is [...] failure or on dialysis Est GFR (Cockcroft-G) 117 ml/MIN [facility] Comment: Estimated GFR(Cockroft-Gault)is used to calculate patient medication dosage Calcium 9.3 8.6 - 10.3 mg/dL [facility] Total Protein 7.6 6.4 - 8.3 g/dL [facility] Albumin 4.6 3.5 - 5.0 g/dL [facility] Globulin 3.0 2.3 - 3.5 gm/dL [facility] Albumin/Globulin Ratio 1.5 1.1 - 1.8 [facility] Total Bilirubin 0.3 0.0 - 1.2 mg/dL [facility] AST 19 0 - 32 U/L [facility] ALT 14 0 - 33 U/L [facility] Alkaline Phosphatase 81 35 - 104 U/L [facility] 06/23/2020 4:31 AM INCLINOMETER TESTER 06/23/2020 4:54 AM INCLINOMETER TESTER Narrative [facility] - 06/23/2020 5:19 AM INCLINOMETER TESTER Resulting Agency Comment ER us Blanca Casey DO LAB BLOOD ORDERABLES Final Resu lt [facility] [address] [place] [address], [facility] [phone] * (ABNORMAL) CBC with auto differential (06/23/2020 4:31 AM INCLINOMETER TESTER) WBC 9.6 3.8 - 9.9 X10 3/ul [facility] RBC 4.55 3.90 - 5.20 x10 6/ul [facility] Hemoglobin 13.1 11.9 - 15.5 g/dL [facility] Hct 38.8 35.6 - 45.5 % [facility] MCV 85.3 81.3 - 96.4 fl [facility] MCH 28.8 27.1 - 33.3 pg [facility] MCHC 33.8 32.3 - 35.7 g/dl [facility] RDW 12.8 11.1 - 14.9 % [facility] Plt Count 320 150 - 400 x10 3/ul [facility] MPV 9.0(L) 9.1 - 12.3 fl [facility] Neut % 54.0 % [facility] Immature Gran % 0.3 % [facility] Lymph % 32.0 % [facility] [place] % 10.0 % [facility] Eos % 2.9 % [facility] AUTO BASO % 0.8 % [facility] NEUTROPHIL ABS # 5.2 1.7 - 6.5 x10 3/ul [facility] Immature Gran # 0.0 0.0 - 0.1 x10 3/ul [facility] Absolute Lymphs (auto) 3.1 0.8 - 3.3 x10 3/ul [facility] Absolute Monos (auto) 1.0(H) 0.2 - 0.8 x10 3/ul [facility] Absolute Eos (auto) 0.3 0.0 - 0.5 x10 3/ul [facility] BASOPHIL ABS # 0.1 0.0 - 0.1 x10 3/ul [facility] Nucleat RBC Rel Count 0.0 #/100WBC [facility] NRBC abs 0.00 0.00 - 0.01 x10 3/ul [facility] Absolute Neutrophils 5,200 200 - 8,000 /ul [facility] 06/23/2020 4:31 AM INCLINOMETER TESTER 06/23/2020 4:54 AM INCLINOMETER TESTER Narrative [facility] - 06/23/2020 5:01 AM INCLINOMETER TESTER Resulting Agency Comment ER Blanca Casey DO LAB BLOOD ORDERABLES Final Resu lt Performing Organization Address City/[facility]/ZIP Co de Phone Number [facility] [address] [phone] * Urine culture Urine, clean voided (06/23/2020 4:21 AM INCLINOMETER TESTER) Organism STAPHYLOCOCCUS AUREUS [facility] CULTURE URINE >100,000 CFU/ml SEE SUSCEPTIBILITY REPORT BELOW FOR OXACILLIN SUSCEPTIBLE STAPHYLOCOCCUS; Oxacillin or cefazolin therapy is recommended as these agents are superior to vancomycin. In a non-severe PCN allergy, cefazolin is recommended. In a severe PCN allergy vancomycin is recommended. [facility] Urine, clean voided 06/23/2020 4:21 AM INCLINOMETER TESTER 06/23/2020 5:05 AM INCLINOMETER TESTER Narrative Organism Antibiotic Method Susceptibility Staphylococcus aureus Daptomycin GRAM POSITIVE AST 0.5: Susceptible Staphylococcus aureus Doxycycline GRAM POSITIVE AST <=0.5: Susceptible Staphylococcus aureus Nitrofurantoin GRAM POSITIVE AST <=16: Susceptible Staphylococcus aureus Oxacillin GRAM POSITIVE AST 0.5: Susceptible Staphylococcus aureus Tetracycline GRAM POSITIVE AST <=1: Susceptible Staphylococcus aureus Trimethoprim with Sulfamethoxazole GRAM POSITIVE AST <=10: Susceptible Staphylococcus aureus Vancomycin GRAM POSITIVE AST <=0.5: Susceptible Blanca Casey DO LAB MICROBIOLOGY - GENERAL ORDE RABLES Final Result Performing Organization Address City/[facility]/ZIP Co de Phone Number [facility] [address] [phone] * (ABNORMAL) URINALYSIS, COMPLETE W/REFLEX TO CULTURE (06/23/2020 4:21 AM INCLINOMETER TESTER) Ur Collection Type CLEAN CATCH [facility] Ur Culture Indicated? C S INDICATED [facility] Comment: Culture report to follow. Urine Color YELLOW YELLOW [facility] Urine Clarity [facility] Urine Glucose (UA) NORMAL NORMAL mg/dL [facility] Urine Bilirubin NEGATIVE NEGATIVE mg/dl [facility] Urine Ketones NEGATIVE NEGATIVE mg/dL [facility] Ur Specific [place] 1.026(H) 1.005 - 1.025 [facility] Urine Blood >=1.0 NEGATIVE mg/dl [facility] Urine pH 5.0 5.0 - 8.0 [facility] Urine Protein 100(A) NEGATIVE mg/dL [facility] Urine Urobilinogen NORMAL NORMAL mg/dL [facility] Urine Nitrite NEGATIVE NEGATIVE [facility] Ur Leukocyte Esterase 250(A) NEGATIVE Will/ul [facility] Ur Microscopic Review Indicated or Ordered [facility] Urine RBC >50 0 - 2 /HPF [facility] Urine WBC >50 0 - 2 /HPF [facility] Urine Mucus Present /LPF [facility] Ur Squamous Epith Cells >50 /LPF [facility] 06/23/2020 4:21 AM INCLINOMETER TESTER 06/23/2020 5:05 AM INCLINOMETER TESTER Narrative [facility] - 06/23/2020 6:18 AM INCLINOMETER TESTER Indication(s) for ordering ?? Pain-pelv/flank/suprapubc mi Clean catch Resulting Agency Comment ER us Blanca Casey DO LAB URINE ORDERABLES Final Resu lt Performing Organization Address City/[facility]/ZIP Co de Phone Number [address] [phone] * Influenza A/B PCR (06/23/2020 4:20 AM INCLINOMETER TESTER) Influenza A RNA NEGATIVE NEGATIVE [facility] Influenza B RNA NEGATIVE NEGATIVE [facility] 06/23/2020 4:20 AM INCLINOMETER TESTER 06/23/2020 5:05 AM INCLINOMETER TESTER Narrative [facility] - 06/23/2020 5:54 AM INCLINOMETER TESTER Collected By tn Resulting Agency Comment ER us Blanca Casey DO LAB MICROBIOLOGY - GENERAL ORDE RABLES Final Result Performing Organization Address City/[facility]/ZIP Co de Phone Number [address] [phone] * SCAN - LABS (06/23/2020 12:00 AM INCLINOMETER TESTER) Narrative 06/23/2020 12:00 AM INCLINOMETER TESTER Ordered by an unspecified provider. us Historical Provider MD Final Res ult documented in this encounter Visit Diagnoses Not on filedocumented in this encounter
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
--- OUTSIDE RECORDS SUMMARY | 2024-08-05 00:22 | XMS_ITS | Encounter Summary ---
Author Organization [facility] Address [address] [place] [address] Phone Care Team Providers Care Vocational Counselor Name Role Phone Unavailable Primary Care Provider Unavailabl e Reason for Visit * Reason Onset Date Comments pt concern 03/09/2020 Encounter Details Date Type Department Care Team (Late st Contact Info) Description 03/09/2020 Telephone [facility] Pediatric Neurology [address] [place] [address] Janeth Ronquillo MD [address] [facility] [id number] [place] [address] pt concern Social History Tobacco Use Types Packs/Day Years Used Date Smoking Tobacco: Never Smokeless Tobacco: Never Alcohol Use Standard Drinks/Week Comments Yes 0 (1 standard drink = 0.6 oz pur e alcohol) occasional Comments Unknown Sex and Gender Information Value Date Recorded Sex Assigned at Not on file Legal Sex Female 6:22 AM WEFT STRAIGHTENER Gender Identity Female 03/11/2020 1:47 PM CDT Sexual Orientation Straight 03/11/2020 1: 47 PM CDT documented as of this encounter Miscellaneous Notes * Telephone Encounter - Anabel Piedra RN - 03/09/2020 1:12 PM CDT Spoke with Lorri and advised of above. She is in agreement. To Schedulers: Could you please schedule [place] for a video telemedicine visit with Dr Ronquillo? Thanks- * Telephone Encounter - Janeth Ronquillo MD - 03/09/2020 1:03 PM CDT Please have her take 300 mg PO BID for now and have her schedule a video visit. She should call in the meantime for any difficulties. * Telephone Encounter - Anabel Piedra RN - 03/09/2020 11:[address] Ronquillo- Wt: 45.9 kg ?? Meds verified with Lorri: ?? OXC 600 and 300 mg; 600/750 STOPPED TAKING 2 MOS AGO, restarted it the other day, her Mom made her. Prazosin (minipress) 2 mg; 1 cap HS for her night terrors presc Cymbalta 30 mg in pm OCP Folic Acid 1 mg Spoke with Lorri. She is home in [place] currently. She stopped taking her OXC 2 mos ago becauseit was making her sick, had dizziness. Mom made her start taking them a couple days ago, she just took it in the am, she went back up to the 600 mg, she became real dizzy, she came home from work, laid on floor, took a nap and was OK. 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 Sz; She is not having any sz, she only has them if she gets sick and runs a fever. BATISTA's Not having any BATISTA's lately, not having as bad auras, she only has one when a sz is coming. Wonders if she needs to switch to Adult Neuro? She will be going back to school in [place], they will be 50/50 face to face and virtual. 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 She has not had an OV since last February. Advised that you might want to schedule a video telemedicinevisit. She said with her work she is available MWF or TTH afternoon. She is on summer break March 15-Mar 27. * Telephone Encounter - Cole Taylor - 03/09/2020 10:15 AM CDT Lorri called and said she would like to discuss her medication. It has been making her feel sick/dizzy and she had lost sight and hearing for moment today. documented in this encounter Plan of Treatment Not on file documented as of this encounter Visit Diagnoses Not on filedocumented in this encounter Discontinued Medications Medication Sig Discontinue Reason Start Date End Da te FLUoxetine (PROzac) 40 mg capsule Take 40 mg by mouth daily 03/09/2020 melatonin 5 mg tablet 1 tab at bedtime 08/06/2018 0 documented as of this encounter
--- OUTSIDE RECORDS SUMMARY | 2024-08-05 00:22 | XMS_ITS | Encounter Summary ---
Author Organization [facility] Address [address] [place] [address] Phone Care Team Providers Care Piano Professor Name Role Phone Unavailable Primary Care Provider Unavailabl e Reason for Visit * Neurology (Routine) - Closed Specialty Diagnoses / Procedures Referred By Mavis carreon Referred To Contact Neurology / Pediatric Neurology Diagnoses HAVE PARENT SIGN RESP FORM. APPT MADE TODAY AND NO REFERRAL ON FILE WITH ROSHNI. Sz Procedures EPILEPSY RETURN No, Physician Phone: tel: Janeth Ronquillo MD [address] [facility] [phone] [place] [address] Phone: tel: fax: Referral ID Status Reason Start Date Expiration Date Visits Re quested Visits Authorized [id number] Closed 03/13/2019 03/19/2020 3 3 Encounter Details Date Type Department Care Team (Late st Contact Info) Description 03/19/2019 2:00 PM CDT Office Visit [facility] Pediatric Neurology [facility] 2nd [place] [address] [place] [phone] Janeth Ronquillo MD [address] [facility] [id number] [place] [address] Seizure cerebral (Primary Dx); Partial idiopathic epilepsy with seizures of localized onset, not intractable, without status epilepticus (CMS/HCC) Social History Tobacco Use Types Packs/Day Years Used Date Smoking Tobacco: Never Smokeless Tobacco: Never Alcohol Use Standard Drinks/Week Comments Yes 0 (1 standard drink = 0.6 oz pur e alcohol) occasional Comments Unknown Sex and Gender Information Value Date Recorded Sex Assigned at Not on file 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42% 03/19/2019 2:1 4 PM CDT Growth Chart: [facility] (Girls, 2- 20 Years) documented in this encounter Patient Instructions * Patient Instructions* Janeth Ronquillo MD - 03/19/2019 2:00 PM CDT Obtain adequate sleep. Call for auras and seizures. documented in this encounter Progress Notes * Janeth Ronquillo MD - 03/19/2019 2:00 PM CDT Patient Name: LORRI CALDWELL Medical Record Number (MRN): [id number] Date of (): 2000 Encounter Date: 03/19/2019 [facility] Chief Complaint Lorri Caldwell is a 18 y.o. young lady seen today for follow up of focal epilepsy. She provides her own history today. She was last seen in 2017. Subjective/Objective HPI She initially denies any symptoms since Trileptal, 450 mg BID, was started but then notes the occasional little tightness on the episcopalian lasting 30 seconds, occurring 3 months ago, which she characterizes as a seizure about to start. She was stressed at that time for which she attributes the event. She is not having headaches. She is on magnesium per her psychiatrist. She is also on Prozac for PTSD as well as minipress. She has used the shanna calm which was recommended to her by her psychiatrist. She is leaving at 0500 in the am for college. She plans on majoring in biology; she wants to be a neurosurgeon and cure epilepsy. She already has a theory which she prefers not to share with me today. She had a mammogram for a lump which was fine. She does drink coffee. Review of Systems A comprehensive ROS is as under the HPI and otherwise negative. No Known Allergies Current Outpatient Medications on File Prior to Visit Medication Sig Dispense Refill ??? etonogestrel (NEXPLANON) 68 mg implant 68 each by subdermal route continuous ??? FLUoxetine (PROzac) 40 mg capsule Take 40 mg by mouth daily ??? magnesium oxide 400 mg capsule Take 1 cap daily 30 each 5 ??? melatonin 5 mg tablet 1 tab at bedtime 30 tablet 5 ??? OXcarbazepine (TRILEPTAL) 300 mg tablet 1.5 tablet PO BID ??? prazosin (MINIPRESS) 2 mg capsule Take 2 mg by mouth nightly ??? [DISCONTINUED] riboflavin (Vitamin B-2) 100 mg tablet 1 tab at bedtime (Patient not taking: Reported on 03/19/2019) 30 tablet 5 No current facility-administered medications on file prior to visit. Social History Socioeconomic History ??? Marital status: Single Spouse name: Not on file ??? Number of children: Not on file ??? Years of education: Not on file ??? Highest education level: Not on file Occupational History ??? Not on file Social Needs ??? Financial resource strain: Not on file ??? Food insecurity: Worry: Not on file Inability: Not on file ??? Transportation needs: Medical: Not on file Non-medical: Not on file Tobacco Use ??? Smoking status: Never Smoker ??? Smokeless tobacco: Never Used Substance and Sexual Activity ??? Alcohol use: Yes Comment: occasional ??? Drug use: Never ??? Sexual activity: Yes Partners: Male Comment: Nexplanon Lifestyle ??? Physical activity: Days per week: Not on file Minutes per session: Not on file ??? Stress: Not on file Relationships ??? Social connections: Talks on phone: Not on file Gets together: Not on file Attends scientology service: Not on file Active member of club or organization: Not on file Attends meetings of clubs or organizations: Not on file Relationship status: Not on file ??? Intimate partner violence: Fear of current or ex partner: Not on file Emotionally abused: Not on file Physically abused: Not on file Forced sexual activity: Not on file Other Topics Concern ??? Not on file Social History Narrative ??? Not on file Vital Signs Vitals: 03/19/19 1414 BP: 96/60 Pulse: 68 Resp: 18 Temp: 36.8 ??C (98.3 ??F) TempSrc: Oral Weight: 45.8 kg (100 lb 15.5 oz) Height: 160 cm (5' 2.99 ) Physical Exam Lorri was awake and alert; pleasant and interactive. Her speech was clear and fluentand her eyes were conjugant with full movements. Her visual santos were full to confrontation and without extinction. Her hearing was grossly intact and her neck was supple. Her posture and tone weresymmetric and no involuntary movements were noted. She had no pronator drift with outstretched armsand her fine finger movements were symmetric. She could perform crossing midline commands easily. Her Romberg was negative and her tandem and casual gaits were unremarkable. Her RR was unlabored and her abdomen was soft. Her extremities were without cyanosis, clubbing or edema. Data Review Section Mammogram 03/04/19 unremarkable CBC/CMP 03/04/19 unremarkable Assessment/Plan Diagnosis Plan 1. Seizure cerebral 2. Partial idiopathic epilepsy with seizures of localized onset, not intractable, without status epilepticus (CMS/[facility]) I provided documentation that Heavin could fully participate in cross country. She is to call me should she have any auras. She should find a neurologist in the region of her university in case she has problems there. She is welcome to call here for questions or concerns. If she wishes us to continue to provide refills she should follow up yearly. We discussed the possibility of her contraceptive implant to be less effective on oxcarbazepine, and the possible need to replace it sooner than three years. We also discussed using a barrier method in addition to hormonal contraception. The importance of adequate sleep and stress management in seizure control was also discussed. Return in about 1 year (around 03/19/2020). Thank you for allowing me to participate in the care of your patient. If you have any questions, feel free to contact me at [phone]. Sincerely, Janeth Ronquillo MD documented in this encounter Plan of Treatment Not on file documented as of this encounter Visit Diagnoses Diagnosis Seizure cerebral (CMS/HCC) (HCC)- Primary Acute, but ill-defined, cerebrovascular disease Partial idiopathic epilepsy with seizures of localized onset, not intractable, without status epilepticus (HCC) documented in this encounter Discontinued Medications Medication Sig Discontinue Reason Start Date End Da te riboflavin (Vitamin B-2) 100 mg tabletIndications:Riboflavi n Deficiency 1 tab at bedtime Other 08/06/2018 03/19/2019 documented as of this encounter Historical Medications * This list may reflect changes made after this encounter. etonogestrel (NEXPLANON) 68 mg implant 68 each by subdermal route continuous 1 prazosin (MINIPRESS) 2 mg capsule Take 2 mg by mouth nightly 1 FLUoxetine (PROzac) 40 mg capsule Take 40 mg by mouth daily 0 added in this encounter
--- OUTSIDE RECORDS SUMMARY | 2024-08-05 00:22 | XMS_ITS | Encounter Summary ---
Author Organization [facility] Facility Care Team Providers Care Juice Weigher Name Role Phone Unavailable Primary Care Provider Unavailabl e Encounter Details Date Type Department Care Team (Latest Contact Info) Description 10/29/2015 6:35 AM DOCTOR OF DENTAL SURGERY - 10/29/2015 11:59 PM DOCTOR OF DENTAL SURGERY Hospital Encounter [facility] Convulsions (CMS/HCC) Social History Tobacco Use Types Packs/Day Years Used Date Smoking Tobacco: Never Assessed Comments Unknown Sex and Gender Information Value Date Recorded Sex Assigned at Not on file 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 [facility] ? Pediatric Epilepsy Center ?EEG Lab ? [address] ? [place], [place] ??[address] ?ELECTROENCEPHALOGRAM REPORT Name: ?LORRI CALDWELL ?Record Number: ? [id number] ?Date of : ? 2000 ?Date of Service: ? 10/29/2015 Location: ??Outpatient EEG Lab Referring M.D.: ??Dr. Nghia Mcdonald Medication: ??None. History: ??A 15-year-old with seizures for one year with staring and trembling and history of one grand mal seizure. EEG Description: ??A routine EEG with scalp electrodes was performed using the [employer] monitoring system to record EEG data digitally. ??The standard 10-20 electrode placement system was used. ??A variety of referential and bipolar montages were used to analyze the data digitally. ??The duration of the EEG was 41 minutes. ??Start time was 7:27 and end time was 8:08. During the waking state with the eyes closed, the background activity consisted of a 11 Hz posterior dominant rhythm that attenuated appropriately with eye opening. ??No significant asymmetries of the background activity occurred. During periods of drowsiness, the posterior dominant rhythm waxed and waned, and there were periods of slowing. ??During stage 2 sleep, symmetric vertex waves, K-complexes, and sleep spindles occurred. ??Hyperventilation did not elicit any epileptiform abnormalities. ??Photic stimulation did not elicit any epileptiform abnormalities. During the record, there were 3 button presses for typical events. ??The first occurred when the patient was unresponsive to voice. ??There was no change in the patient's awake background EEG during the episode. ??The second episode was reported as mom noticing seizure activity while the patient fell asleep. ??The patient had just entered stage 2 sleep, and when the mother spoke, the patient woke and had a normal awake background, with no evidence for seizure activity. The third episode was when the patient saw the patient jerk during her sleep. There was no evidence for seizure activity with this event either. No clinical or electrographic seizures occurred. Interpretation: ??This awake and asleep EEG is normal for the patient's age. The patient had multiple clinical events including a period of nonresponsiveness, jerking in the sleep, which did not represent seizure activity. Signed Zo Jones MD 11/15/2015 01:57 P Zo Jones MD CAG/jxg 03:37 P A #[id number] cc: ?? Nghia Mcdonald MD us Historical Provider NEUROLOGY ORDERABLES Vandana l Result documented in this encounter Visit Diagnoses Diagnosis Convulsions (HCC) Other convulsions documented in this encounter
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
--- OUTSIDE RECORDS SUMMARY | 2024-08-05 00:22 | XMS_ITS | Encounter Summary ---
Author Organization [facility] Address [address] [place] [address] Phone Care Team Providers Care Spoon Maker Name Role Phone Unavailable Primary Care Provider Unavailabl e Reason for Visit * Reason Onset Date Comments Letter for School/Work 03/18/2019 Encounter Details Date Type Department Care Team (Late st Contact Info) Description 03/18/2019 Telephone [facility] Pediatric Neurology [facility] 2nd [place] [address] [place] [address] Janeth Ronquillo MD [address] [facility] [phone] [place] [address] Letter for School/Work Social History Tobacco Use Types Packs/Day Years Used Date Smoking Tobacco: Never Assessed Comments Unknown Sex and Gender Information Value Date Recorded Sex Assigned at Not on file 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 * Telephone Encounter - Tiffany Perera RN - 03/19/2019 12:51 PM CDT Spoke with Lorri. She is leaving home now and is about [address] Will work on adding to schedule. * Telephone Encounter - Janeth Ronquillo MD - 03/19/2019 12:45 PM CDT See below. * Telephone Encounter - Janeth Ronquillo MD - 03/19/2019 12:26 PM CDT I can see her this afternoon if they get here JOSE ENRIQUE. * Telephone Encounter - Anabel Piedra RN - 03/19/2019 11:27 AM CDT Wt: 44.2 kg ?? OXC 300 mg; 1.5 tabs (450 mg) BID Dr Ronquillo- Spoke with both Mom and Lorri. Lorri is still taking her OXC 300 mg; 1.5 tabs BID. What they toldme (which is confusing and unclear): The bottle has your name on it, they get script filled at [facility], it had 5 refills on it. The date on the bottle was Apr 01, 2018, but they then said it wasn't the original bottle, she had poured later script fills into this one because it was a bigger bottle. We have been in contact with Mom several times for concussion, migraine, and she has had several EDvisits. Not sure if script was filled at ED. Mom didn't realize it had been that long since a visit. Mom said the college needs the letter to be from her neurologist not a PCP. Lorri is free today, is there any way you could fit her in today? They don't know what to do. * Telephone Encounter - Janeth Ronquillo MD - 03/19/2019 11:06 AM CDT You don't mention whether she is still on Trileptal. I don't see any mention that we have weaned italthough we are not providing refills. I can't provide the letter as I have not seen her since 2017. Perhaps her PCP will provide it if she is no longer on the Trileptal and not having problems. I do not have a deadline during which patients need to transition, although I would expect Lorri will want to transition as she is otherwise healthy. I recommend that she find a neurologist in [place] in case she has problems. Whenever we are asked for letters I need to know how the patients are doing, regardless if they have been seen recently or not. In this case, I still would not be able to provide it due to her failure to follow up over the past 2 1/2 years. Thanks, MB * Telephone Encounter - Anabel Piedra RN - 03/19/2019 10:[address] Ronquillo- Spoke with Lorri. She is going [facility] in [place] and leaves tomorrow. She plans to run cross country and needs a letter saying that it's OK to run. Also, just yesterday she got an e-mail from the service dog trainer who wanted pertinent medical documentation about her epilepsy including MRI, CT, and EKG. FAX # is [phone]. I will send an SAVANNA for Lorri to sign for med records to: [email or web address] Mom was also asking if she needs to transfer to an Adult Neurologist at this time? Last OV with jase like it was Sep 2016. Is it OK to draft a letter saying Lorri can run cross-country? Thanks- * Telephone Encounter - Justin Romero - 03/19/2019 10:13 AM CDT Pt informed that line for letter is this Sunday. Please fax to [phone] Attn: Marjorie Pruitt She would also like a call back to discuss how she should go about getting a new neurologist. * Telephone Encounter - Cece Kennedy MA - 03/18/2019 2:[address] Ronquillo Pt is calling because she needs a letter to clear her to be able to run cross country at [employer]. documented in this encounter Plan of Treatment Not on file documented as of this encounter Visit Diagnoses Not on filedocumented in this encounter
--- OUTSIDE RECORDS SUMMARY | 2024-08-05 00:22 | XMS_ITS | Encounter Summary ---
Author Organization [facility] Healthcare Address [address] [place] [address] Care Team Providers Care Transcript Clerk Name Role Phone Unavailable Primary Care Provider Unavailabl e Encounter Details Date Type Department Care Team (Late st Contact Info) Description 02/13/2020 11:18 AM CDT - 02/13/2020 6:17 PM CDT Hospital Encounter [facility] Emergency Department [address] [place] [id number] Unknown, Natanael Marino MD [facility] [place] [address] Discharge Disposition: Discharge to home or self care Social History Tobacco Use Types Packs/Day Years Used Date Smoking Tobacco: Never Smokeless Tobacco: Never Alcohol Use Standard Drinks/Week Comments Yes 0 (1 standard drink = 0.6 oz pur e alcohol) occasional Comments Unknown Sex and Gender Information Value Date Recorded Sex Assigned at Not on file Legal Sex Female 6:22 AM [employer] Gender Identity Female 03/11/2020 1:47 PM CDT Sexual Orientation Straight 03/11/2020 1: 47 PM CDT documented as of this encounter Last Filed Vital Signs Vital Sign Reading Time Taken Comments Blood Pressure 115/68 02/13/2020 11:21 AM CDT Pulse 108 02/13/2020 11:21 AM CDT Temperature 36.8 ??C (98.2 ??F) 02/13/2020 11:21 AM C DT Respiratory Rate - - Oxygen Saturation 98% 02/13/2020 11:21 AM CDT Inhaled Oxygen Concentration - - Weight 45.5 kg (100 lb 5 oz) 02/13/2020 11:21 AM CDT Height 160 cm (5' 3 ) 02/13/2020 11:21 AM CDT Body Mass Index 17.77 02/13/2020 11:21 AM CDT documented in this encounter Medications [...] Date/Time Associated Diagnosis Comments SCAN - LABS 02/17/2020 12:[address] ABDOMEN PELVIS W CONTRAST 02/13/2020 2:58 PM CDT URINALYSIS, COMPLETE W/REFLEX TO CULTURE Routine 02/13/2020 2:19 PM CDT URINE CULTURE Routine 02/13/2020 2:19 PM CDT BLOOD CULTURE Routine 02/13/2020 12:01 PM CDT SEPSIS LACTATE Routine 02/13/2020 11:58 AM CDT TNI WITH LIPID PANEL Routine 02/13/2020 11:58 AM CDT CBC WITH AUTO DIFFERENTIAL Routine 02/13/2020 11:58 AM CDT BLOOD CULTURE Routine 02/13/2020 11:58 AM CDT LIPASE Routine 02/13/2020 11:58 AM CDT COMPREHENSIVE METABOLIC PANEL Routine 02/13/2020 11:58 AM CDT ECG 12-LEAD 02/13/2020 11:33 AM CDT XR CHEST 1 VIEW 02/13/2020 12:[address] HEAD WO CONTRAST 02/13/2020 1 2:00 AM CDT documented in this encounter Results * SCAN - LABS (02/17/2020 12:00 AM CDT) Narrative 02/17/2020 12:00 AM CDT Ordered by an unspecified provider. us Historical Provider Final Res ult * CT Abdomen Pelvis W Contrast (02/13/2020 2:58 PM CDT) Anatomical Region Laterality Modality Body N/A Computed Tomogra phy 02/13/2020 3:03 PM CDT Narrative 02/13/2020 3:13 PM CDT Patient Name: LORRI CALDWELL ?Ordering Dr: Paco Madrid MD ?? D.O.B: 2000 ? Exam Date: 02/12/ ?? 1458 ?? Age: 19 ?Sex: Female ? MR#: [id number] ?? Loc: ? RADIOLOGY REPORT ?? Order #[id number] ?? CT Scan ? CT Abd/Pelvis W IV Contrast ? Signed ? EXAM DESCRIPTION: ?? CT Abd/Pelvis W IV Contrast ? REASON FOR STUDY: ?? Lower abdominal pain today. ??Multiple epileptic seizures ?? today. ??Body aches and left frontal headache ? TECHNIQUE: ??CT scan of the abdomen and pelvis performed with intravenous and ? without oral contrast using helical scanning technique with dynamic ?? intravenous contrast injection. Reconstructed coronal and sagittal MPR images ?? reviewed. All images stored on PACS. ? Automated exposure control was used as a dose optimization technique for this ?? examination. ? CONTRAST TYPE/DOSE: ?? 100 mL Optiray 350 injected via ??right antecubital ? COMPARISON: ?? 11/03/2019 ? FINDINGS: ? LOWER CHEST: ??No focal consolidation or pleural effusion. ? LIVER: ??Hypoattenuation along the falciform ligament as seen with a ?? perfusional anomaly or focal fat ? GALLBLADDER: ??No stones identified. No wall thickening or inflammatory changes. ? BILE DUCTS: ??No intrahepatic or extrahepatic ductal dilatation. ? SPLEEN: ??Normal size. ??No focal lesions. ? PANCREAS: ??Normal ? ADRENALS: ??Normal. ? KIDNEYS/URINARY TRACT: ??Symmetric enhancement of the kidneys. ??No urinary ?? tract calculi. ??No hydronephrosis. ??1 cm left renal cyst again noted. ??Urinary ?? bladder is unremarkable. ? GI: ??No bowel wall thickening. ??No evidence of small-bowel obstruction. ??The ?? appendix is not definitively visualized, however there are no secondary signs ?? of acute appendicitis within the right lower quadrant of the abdomen. ? Appendix may be located on axial image 90 through 97. ? PERITONEUM: ??No free air. ? RETROPERITONEUM: ??No mass or adenopathy. ? REPRODUCTIVE: ??Dominant left ovarian follicle/cyst measuring 12 mm. ??Small ?? amount of free fluid within the pelvis which is likely physiologic. ? VASCULATURE: ??No abdominal aortic aneurysm. ? MUSCULOSKELETAL: ??No acute fracture or destructive osseous lesion. ? IMPRESSION: ? 1. ??Appendix not definitively visualized. ??No secondary signs of acute ?? appendicitis identified. ? 2. ??Small amount of free fluid within the pelvis which is likely physiologic. ? 3. ??No acute inflammatory process in the abdomen or pelvis identified. ? THIS IS AN ELECTRONICALLY VERIFIED FINAL REPORT ?? 02/13/2020 3:13 PM - Electronically signed by Nghia Chambers M.D. ?? Nghia Chambers M.D. ? USHA: USHA ?? D: ??02/13/2020 3:13 PM ?? T: ??02/13/2020 3:13 PM ? Report ID: [id number] ?? Reading Location: ??[id number] ? REPORT ELECTRONICALLY SIGNED IN OTHER VENDOR SYSTEM ?? Resulting Agency Comment E Procedure Note Nghia Chambers MD - 02/13/2020 Patient Name: LORRI CALDWELL Dr: Paco Madrid MD D.O.B: 2000 Exam Date: 02/13/20 1458 Age: 19 Sex: Female MR#: [id number] Loc: RADIOLOGY REPORT Order #[id number] CT Scan CT Abd/Pelvis W IV Contrast Signed EXAM DESCRIPTION: CT Abd/Pelvis W IV Contrast REASON FOR STUDY: Lower abdominal pain today. Multiple epilepticseizures today. Body aches and left frontal headache TECHNIQUE: CT scan of the abdomen and pelvis performed with intravenousand without oral contrast using helical scanning technique with dynamic intravenous contrast injection. Reconstructed coronal and sagittal MPRimages reviewed. All images stored on PACS. Automated exposure control was used as a dose optimization technique forthis examination. CONTRAST TYPE/DOSE: 100 mL Optiray 350 injected via right antecubital COMPARISON: 11/03/2019 FINDINGS: LOWER CHEST: No focal consolidation or pleural effusion. LIVER: Hypoattenuation along the falciform ligament as seen with a perfusional anomaly or focal fat GALLBLADDER: No stones identified. No wall thickening or inflammatorychanges. BILE DUCTS: No intrahepatic or extrahepatic ductal dilatation. SPLEEN: Normal size. No focal lesions. PANCREAS: Normal ADRENALS: Normal. KIDNEYS/URINARY TRACT: Symmetric enhancement of the kidneys. No urinary tract calculi. No hydronephrosis. 1 cm left renal cyst again noted.Urinary bladder is unremarkable. GI: No bowel wall thickening. No evidence of small-bowel obstruction.The appendix is not definitively visualized, however there are no secondarysigns of acute appendicitis within the right lower quadrant of the abdomen. Appendix may be located on axial image 90 through 97. PERITONEUM: No free air. RETROPERITONEUM: No mass or adenopathy. REPRODUCTIVE: Dominant left ovarian follicle/cyst measuring 12 mm.Small amount of free fluid within the pelvis which is likely physiologic. VASCULATURE: No abdominal aortic aneurysm. MUSCULOSKELETAL: No acute fracture or destructive osseous lesion. IMPRESSION: 1. Appendix not definitively visualized. No secondary signs of acute appendicitis identified. 2. Small amount of free fluid within the pelvis which is likelyphysiologic. 3. No acute inflammatory process in the abdomen or pelvis identified. THIS IS AN ELECTRONICALLY VERIFIED FINAL REPORT 02/13/2020 3:13 PM - Electronically signed by Nghia Chambers M.D. USHA: USHA Report ID: [id number] Reading Location: [id number] REPORT ELECTRONICALLY SIGNED IN OTHER VENDOR SYSTEM us Natanael Madrid MD IMG CT PROCEDURES Final R esult * Urine culture Urine, clean voided (02/13/2020 2:19 PM CDT) CULTURE URINE Culture yielded multiple organisms. This generally indicates contamination by normal periurethral berta at time of collection. No further testing will be performed on this specimen. Please resubmit if clinically indicated. >100,000 CFU/ml MIXED GRAM POSITIVE ORGANISMS [facility] Urine, clean voided 02/13/2020 2:19 PM CDT 02/13/2020 2:26 PM CDT [facility] MICROBIOLOGY - GENERAL ORD ERABLES Final Result [facility] [address] [place] [address], [facility] [phone] * (ABNORMAL) URINALYSIS, COMPLETE W/REFLEX TO CULTURE (02/13/2020 2:19 PM CDT) Ur Collection Type CLEAN CATCH [facility] Ur Culture Indicated? C S INDICATED [facility] Comment: Culture report to follow. Urine Color IVORY YELLOW [facility] Urine Clarity [facility] Urine Glucose (UA) NORMAL NORMAL mg/dL [facility] Urine Bilirubin NEGATIVE NEGATIVE mg/dl [facility] Urine Ketones 80(A) NEGATIVE mg/dL [facility] Ur Specific [place] 1.028(H) 1.005 - 1.025 [facility] Urine Blood NEGATIVE NEGATIVE mg/dl [facility] Urine pH 6.0 5.0 - 8.0 [facility] Urine Protein 30(A) NEGATIVE mg/dL [facility] Urine Urobilinogen 4(A) NORMAL mg/dL [facility] Urine Nitrite NEGATIVE NEGATIVE [facility] Ur Leukocyte Esterase 250(A) NEGATIVE Will/ul [facility] Ur Microscopic Review Indicated or Ordered [facility] Urine RBC 4 0 - 2 /HPF [facility] Urine WBC 33 0 - 2 /HPF [facility] Urine Bacteria Rare /HPF [facility] Urine Mucus Mod /LPF [facility] Ur Squamous Epith Cells Many /LPF [facility] 02/13/2020 2:19 PM CDT 02/13/2020 2:26 PM CDT Narrative [facility] - 02/13/2020 2:38 PM CDT Indication(s) for ordering ?? Fever -unknown source wilcox Clean catch Resulting Agency Comment ER us [facility] URINE ORDERABLES Final Res ult Performing Organization Address City/[facility]/ZIP Co de Phone Number [facility] [address] [place] [address] * Blood culture Blood (02/13/2020 12:01 PM CDT) CULTURE BLOOD ADULT (SET OF 2) NO GROWTH DAY 5 [facility] Blood 02/13/2020 12:0 1 PM CDT 02/13/2020 12:06 PM CDT [facility] MICROBIOLOGY - GENERAL ORD ERABLES Final Result Performing Organization Address City/[facility]/ZIP Co de Phone Number [facility] [address] [phone] * Blood culture Blood (02/13/2020 11:58 AM CDT) CULTURE BLOOD ADULT (SET OF 2) NO GROWTH DAY 5 [facility] Blood 02/13/2020 11:5 8 AM CDT 02/13/2020 12:06 PM CDT us [facility] MICROBIOLOGY - GENERAL ORD ERABLES Final Result [facility] [address] [place] [address], [facility] [phone] * TNI with LIPID PANEL (02/13/2020 11:58 AM CDT) Troponin I <0.300 0.000 - 0.300 ng/mL [facility] Comment: Reference using FER Chemiluminescence ? Negative: Repeat in 4-6 hours as indicated. Triglycerides 67 0 - 149 mg/dL [facility] Comment: National Lipid Association/NCEP Guidelines: ?? Normal ?< 150 mg/dL ?? Borderline high ?? 150-199 mg/dL ?? High ?200-499 mg/dL ?? Very High ? >=500 mg/dL Cholesterol 127 0 - 199 mg/dL [facility] Comment: National Lipid Association/NCEP Guidelines: Desirable ? < 200 mg/dL Borderline high: ??200-239 mg/dL High Risk: ?>=240 mg/dL HDL Cholesterol 45 mg/dL [facility] Comment: Reference Ranges: ? Males: >=40 mg/dL ? Females: >=50 mg/dL LDL Cholesterol, Calc 69 0 - 129 mg/dL [facility] Comment: National Lipid Association/NCEP Guidelines: ??Optimal ? < 100 mg/dL ??Near Optimal ?100-129 mg/dL ??Borderline high 130-159 mg/dL ??High ?>=160 mg/dL Cholesterol/HDL Ratio 2.8 [facility] Comment: Optimal ??< 3.5:1 High ? > 5:1 02/13/2020 11:5 8 AM CDT 02/13/2020 12:06 PM CDT Narrative Resulting Agency Comment ER us [facility] BLOOD ORDERABLES Final Res ult [place] [address] [place] [address], [facility] [phone] * Comprehensive metabolic panel (02/13/2020 11:58 AM CDT) Pathologist [facility] [place] Sodium 139 135 - 145 mmol/L [facility] Potassium 3.5 3.3 - 5.1 mmol/L [facility] Chloride 102 96 - 108 mmol/L [facility] Carbon Dioxide 22 22 - 32 mmol/L [facility] Anion Gap 15 7 - 16 [facility] Glucose 80 70 - 100 mg/dL [facility] BUN 12 8 - 25 mg/dL [facility] Creatinine 0.6 0.5 - 1.1 mg/dL [facility] Comment: NOTE: Estimated GFR (Cockroft-Gault) will NOT be calculated unless patient Height and Weight were entered. Also, Kidney Disease Stage (GFR) and Estimated GFR (Cockroft-Gault) will NOT be calculated if Creatinine result is <0.2. Kidney Disease Stage >90 mL/MIN [facility] Comment: NOTE; ??The GFR is an [...] failure or on dialysis Est GFR (Cockcroft-G) 108 ml/MIN [facility] Comment: Estimated GFR(Cockroft-Gault)is used to calculate patient medication dosage Calcium 9.9 8.6 - 10.3 mg/dL [facility] Total Protein 8.2 6.4 - 8.3 g/dL [facility] Albumin 5.0 3.5 - 5.0 g/dL [facility] Globulin 3.2 2.3 - 3.5 gm/dL [facility] Albumin/Globulin Ratio 1.6 1.1 - 1.8 [facility] Total Bilirubin 0.9 0.0 - 1.2 mg/dL [facility] AST 24 0 - 32 U/L [facility] Comment: HEMOLYZED: Hemolysis interferes with the above test. ALT 12 0 - 33 U/L [facility] Alkaline Phosphatase 71 35 - 104 U/L [facility] 02/13/2020 11:5 8 AM CDT 02/13/2020 12:06 PM CDT Narrative Resulting Agency Comment ER [facility] BLOOD ORDERABLES Final Res ult Performing Organization Address City/State/[facility] Co de Phone Number [facility] [address] [phone] * Sepsis Lactate (02/13/2020 11:58 AM CDT) Sepsis lactate 1.4 mmol/L [facility] Comment: Lactate Reference Range: 0.5 - 2.2 mmol/L 02/13/2020 11:5 8 AM CDT 02/13/2020 12:06 PM CDT Narrative Resulting Agency Comment ER [facility] BLOOD ORDERABLES Final Res ult [facility] [address] [phone] * (ABNORMAL) Lipase (02/13/2020 11:58 AM CDT) Pathologist [facility] [place] Lipase 12(L) 13 - 60 U/L [facility] 02/13/2020 11:5 8 AM CDT 02/13/2020 12:06 PM CDT Narrative Resulting Agency Comment ER us [facility] BLOOD ORDERABLES Final Res ult Performing Organization Address City/[facility]/ZIP Co de Phone Number [address] [phone] * (ABNORMAL) CBC with auto differential (02/13/2020 11:58 AM CDT) Pathologist [facility] [place] WBC 11.7(H) 3.8 - 9.9 X10 3/ul [facility] RBC 4.79 3.90 - 5.20 x10 6/ul [facility] Hemoglobin 13.6 11.9 - 15.5 g/dL [facility] Hct 40.3 35.6 - 45.5 % [facility] MCV 84.1 81.3 - 96.4 fl [facility] MCH 28.4 27.1 - 33.3 pg [facility] MCHC 33.7 32.3 - 35.7 g/dl [facility] RDW 13.3 11.1 - 14.9 % [facility] Plt Count 252 150 - 400 x10 3/ul [facility] MPV 8.8(L) 9.1 - 12.3 fl [facility] Neut % 83.6 % [facility] AST - Just around [facility] Immature Gran % 0.5 % [facility] Lymph % 8.1 % [facility] E AST - MEDITECH [place] % 6.9 % [facility] E AST - MEDITECH Eos % 0.5 % [facility] E AST - Just around [employer] AUTO BASO % 0.4 % [facility] NEUTROPHIL ABS # 9.8(H) 1.7 - 6.5 x10 3/ul [facility] Immature Gran # 0.1 0.0 - 0.1 x10 3/ul [facility] Absolute Lymphs (auto) 1.0 0.8 - 3.3 x10 3/ul [facility] Absolute Monos (auto) 0.8 0.2 - 0.8 x10 3/ul [facility] Absolute Eos (auto) 0.1 0.0 - 0.5 x10 3/ul [facility] BASOPHIL ABS # 0.1 0.0 - 0.1 x10 3/ul [facility] Nucleat RBC Rel Count 0.0 #/100WBC [facility] NRBC abs 0.00 0.00 - 0.01 x10 3/ul [facility] Absolute Neutrophils 9,800(H) 200 - 8,000 /ul [facility] 02/13/2020 11:5 8 AM CDT 02/13/2020 12:06 PM CDT Narrative Resulting Agency Comment ER us [facility] BLOOD ORDERABLES Final Res ult [address] [phone] * ECG 12 lead (02/13/2020 11:33 AM CDT) Ventricular Rate EKG/Min 124 BPM [facility] Atrial Rate 124 BPM [facility] [place]-Interval (MSEC) 134 ms [facility] QRS-Interval (MSEC) 82 ms [facility] QT-Interval (MSEC) 298 ms [facility] QTc 428 ms [facility] P [place] 74 degrees [facility] R [place] 72 degrees [facility] T [place] -7 degrees [facility] Diagnosis Sinus tachycardia T wave abnormality, consider inferior ischemia Abnormal ECG No previous ECGs available [facility] 02/13/2020 11:3 3 AM CDT 02/13/2020 12:44 PM CDT Narrative Resulting Agency Comment PREADT us [facility] ECG ORDERABLES Final Result [facility] * XR Chest 1 View (02/13/2020 12:00 AM CDT) Anatomical Region Laterality Modality Body, Chest N/A Radiographic Chiqui ging 02/13/2020 12:0 4 PM CDT Narrative 02/13/2020 12:05 PM CDT Patient Name: PAULETTELORRI Berger ?Ordering Dr: Royal Isaacs PA-C ?? D.O.B: 2000 ? Exam Date: 02/13/20 ?? 0000 ?? Age: 19 ?Sex: Female ? MR#: [id number] ?? Loc: ? RADIOLOGY REPORT ?? Order #[id number] ?? Radiology ? Chest 1 View Portable ? Signed ? EXAM DESCRIPTION: ?? Chest 1 View Portable ? REASON FOR STUDY: ?? PT STATES THAT SHE HAS A HX OF SEIZURES-LAST NIGHT AND ?? THIS MORNING SHE HAD A SEIZURE AND A TEMP. OF 100.3 ( IN ER ) ? TECHNIQUE: ?? Frontal radiographic view of the chest acquired. ? COMPARISON: ?? 11/03/2019 ? FINDINGS: ? The heart, mediastinum, and pulmonary vasculature are grossly stable. ??There ?? is no definite evidence of a pneumothorax. ??There is no definite evidence of ?? focal consolidation or pleural effusion. ? There is a stable mild dextroscoliotic curvature of the spine. ? IMPRESSION: ?? No acute cardiopulmonary disease. ? THIS IS AN ELECTRONICALLY VERIFIED FINAL REPORT ?? 02/13/2020 12:05 PM - Electronically signed by Rohini Abdi D.O. ?? Rohini Abdi D.O. ? PS: PS ?? D: ??02/13/2020 12:05 PM ?? T: ??02/13/2020 12:05 PM ? Report ID: [id number] ?? Reading Location: ??[id number] ? REPORT ELECTRONICALLY SIGNED IN OTHER VENDOR SYSTEM ?? Resulting Agency Comment E Procedure Note Rohini Abdi, DO - 02/13/2020 Patient Name: LORRI CALDWELL Dr: Royal Isaacs PA-C, D.O.B: 2000 Exam Date: 02/13/20 0000 Age: 19 Sex: Female MR#: [id number] Loc: RADIOLOGY REPORT Order #[id number] Radiology Chest 1 View Portable Signed EXAM DESCRIPTION: Chest 1 View Portable REASON FOR STUDY: PT STATES THAT SHE HAS A HX OF SEIZURES-LAST NIGHTAND THIS MORNING SHE HAD A SEIZURE AND A TEMP. OF 100.3 ( IN ER ) TECHNIQUE: Frontal radiographic view of the chest acquired. COMPARISON: 11/03/2019 FINDINGS: The heart, mediastinum, and pulmonary vasculature are grossly stable.There is no definite evidence of a pneumothorax. There is no definite evidenceof focal consolidation or pleural effusion. There is a stable mild dextroscoliotic curvature of the spine. IMPRESSION: No acute cardiopulmonary disease. THIS IS AN ELECTRONICALLY VERIFIED FINAL REPORT 02/13/2020 12:05 PM - Electronically signed by Rohini Abdi D.O. PS: PS Report ID: [id number] Reading Location: [id number] REPORT ELECTRONICALLY SIGNED IN OTHER VENDOR SYSTEM us [facility]fn XR PROCEDURES Final Result * CT Head WO Contrast (02/13/2020 12:00 AM CDT) Anatomical Region Laterality Modality Head and Neck N/A Computed Tomogra phy 02/13/2020 11:4 3 AM CDT Narrative 02/13/2020 11:45 AM CDT Patient Name: LORRI CADLWELL ?Ordering Dr: Royal Isaacs PA-C ?? D.O.B: 2000 ? Exam Date: 02/13/20 ?? 0000 ?? Age: 19 ?Sex: Female ? MR#: [id number] ?? Loc: ? RADIOLOGY REPORT ?? Order #[id number] ?? CT Scan ? CT Head WO IV Contrast ? Signed ? EXAM DESCRIPTION: ?? CT Head WO IV Contrast ? REASON FOR STUDY: ?? Altered awareness transiently, epileptic seizures x3 today ?? with body aches and headache, lower abdominal pain. ? TECHNIQUE: ??Axial images acquired through the brain without intravenous ?? contrast. ??Images stored on PACS. ?? Automated exposure control was used as a ?? dose optimization technique for this examination. ? COMPARISON: ?? None. ? FINDINGS: ?BRAIN: No acute intraparenchymal hemorrhage, cerebral edema, hydrocephalus, ?? mass, or mass effect. ? EXTRA-AXIAL SPACES: No extra-axial fluid collection or mass. ? CALVARIUM: No acute skull base or calvarial abnormality. ? SINUSES/MASTOIDS: Predominantly clear. ? ORBITS: No significant abnormality. ? OTHER: No other significant abnormality. ? IMPRESSION: ??No evidence of an acute intracranial abnormality. ? THIS IS AN ELECTRONICALLY VERIFIED FINAL REPORT ?? 02/13/2020 11:45 AM - Electronically signed by Michael Jeffers M.D. ?? Michael Jeffers M.D. ? CH: CH ?? D: ??02/13/2020 11:45 AM ?? T: ??02/13/2020 11:45 AM ? Report ID: [id number] ?? Reading Location: ??[id number] ? REPORT ELECTRONICALLY SIGNED IN OTHER VENDOR SYSTEM ?? Resulting Agency Comment P Procedure Note Michael Jeffers Jr., MD - 02/13/2020 Patient Name: LORRI CALDWELL Dr: Royal Isaacs PA-C, D.O.B: 2000 Exam Date: 02/13/20 0000 Age: 19 Sex: Female MR#: [id number] Loc: RADIOLOGY REPORT Order #[id number] CT Scan CT Head WO IV Contrast Signed EXAM DESCRIPTION: CT Head WO IV Contrast REASON FOR STUDY: Altered awareness transiently, epileptic seizures q8shatp with body aches and headache, lower abdominal pain. TECHNIQUE: Axial images acquired through the brain without intravenous contrast. Images stored on PACS. Automated exposure control was usedas a dose optimization technique for this examination. COMPARISON: None. FINDINGS: BRAIN: No acute intraparenchymal hemorrhage, cerebral edema,hydrocephalus, mass, or mass effect. EXTRA-AXIAL SPACES: No extra-axial fluid collection or mass. CALVARIUM: No acute skull base or calvarial abnormality. SINUSES/MASTOIDS: Predominantly clear. ORBITS: No significant abnormality. OTHER: No other significant abnormality. IMPRESSION: No evidence of an acute intracranial abnormality. THIS IS AN ELECTRONICALLY VERIFIED FINAL REPORT 02/13/2020 11:45 AM - Electronically signed by Michael Jeffers M.D. CH: SANG Report ID: [id number] Reading Location: [id number] REPORT ELECTRONICALLY SIGNED IN OTHER VENDOR SYSTEM [facility] IMYfn CT PROCEDURES Final Result documented in this encounter Visit Diagnoses Not on filedocumented in this encounter
--- OUTSIDE RECORDS SUMMARY | 2024-08-05 00:22 | XMS_ITS | Encounter Summary ---
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 Name Role Phone Unavailable Primary Care Provider Unavailabl e Encounter Details Date Type Department Care Team (Late st Contact Info) Description 08/27/[address] [id number] Patito Voss Social History Tobacco Use Types Packs/Day Years Used Date Smoking Tobacco: Never Smokeless Tobacco: Never Alcohol Use Standard Drinks/Week Comments Yes 0 (1 standard drink = 0.6 oz pur e alcohol) occasional Comments Unknown Sex and Gender Information Value Date Recorded Sex Assigned at Not on file Legal Sex Female 6:22 AM SENIOR MANAGER [employer] Gender Identity Female 03/11/2020 1:47 PM CDT Sexual Orientation Straight 03/11/2020 1: 47 PM CDT documented as of this encounter Miscellaneous Notes * Telephone Encounter - Jonna Hernandes RN - 08/30/2020 2:20 PM SENIOR MANAGER [employer]CTION Elidaleigh ann phoned back and states she has enough OXC medication to last until September when her insurance begins. Lorri to call us when insurance begins so we can order labs and get OXC level. Setting a reminder for 1 month to follow up with Lorri OR MANAGER [employer]OTECTION * Telephone Encounter - Janeth Ronquillo MD - 08/30/2020 9:55 AM CST Yes, we can wait. Please have Lorri contact us when she has insurance. Please also ask her if she will be able to obtain her oxcarb. RICCI Arvizu OR MANAGER ASS[employer]OTECTION * Telephone Encounter - Jonna Hernandes RN - 08/30/2020 8:08 AM SENIOR MANAGER [employer]CTION Noted and discussed with Heavin/patient Dr. Ronquillo's recommendations and instructions. I explained that can cause medication levels to drop. Dr. Ronquillo would like a level drawn on OXC after Lorri has been on a stable dose for 1 week . Lorri has been on a stable dose for over 1 week. When I asked Lorri which lab she wanted order sent to, Lorri informed she will not have insuranceuntseptember. Dr. Ronquillo- Elidaleigh ann will not have insurance until September 2020. OK to wait? OR MANAGER [employer] * Telephone Encounter - Jonna Hernandes RN - 08/27/2020 4:30 PM SENIOR MANAGER ASSET [employer]OTECTION LVM with detailed message from Dr. Ronquillo. We need OXC level next week. Will call Lorri back 08-30-19 for lab near her to send lab order for OXc level. OR MANAGER [employer]CTION * Telephone Encounter - Janeth Ronquillo MD - 08/27/2020 4:24 PM CST It is ok to take oxcarbazepine. Looking at the evidence again, it appears that it doesn't have an increased risk of defects. Her level is likely to drop during so after she has been on a stable dose for at least a week I would like to get a level. Yes, ok to defer VEEG, of course. Thanks, MB OR MANAGER [employer] * Addendum Note - Jonna Hernandes RN - 08/27/2020 3:47 PM CSTAddended by: JONNA HERNANDES on: 08/27/2020 03:47 PM Modules accepted: Orders OR MANAGER [employer] * Telephone Encounter - Jonna Hernandes RN - 08/27/2020 3:28 PM SENIOR MANAGER ASS[employer] Dr. Ronquillo, Last OV 08-06-20 Notes from 08-06-20 visit Lorri wanted an appointment today due to her memory described as being very short term, as forgetting what she said, mostly everything . Onset identified as a couple of months ago. We will schedule 4 nights of VEEG to try to determine the etiology of these spells as I would liketo do this prior to Lorri becoming . We discussed the potential for an increased risk of defects due to her psychiatric medications. I asked her to speak to her pharmacist and her psychiatrist. Alyssa called and spoke with Elidaleigh ann regarding scheduling VEEG Note sent by Alyssa today 08.27/Elidaleigh ann just confirmed she is 8 weeks , could they forgetfullness been due to that?Would like to postpone VEEG until after baby born. (RICCI) I spoke with Elidaleigh ann and she stated that since 08-07-20 no more spells of short term memory that sheclaimed at 08-06-20 appointment. She only increased her evening dose of OXC to 300 mg she is still taking 150 mg in am. No seizures. Medications: verified with Lorri OXC 300 mg taking 0.5 tablet in am and full tablet in pm, she never increased to 300 mg BID as instructed 08-06-20 vitamins Minipress 2 mg nightly Cymbaltal 30 mg taking [address] Ronquillo- Do you still want VEEG 4 nights? Do you want her medication changed, she never increased to 300 mg BID. Lorri states OB said OK to take OXC medication? OR MANAGER [employer]ET [employer]OTECTION OR MANAGER ASSET PROTECTION * Telephone Encounter - Patito Voss - 08/27/2020 3:20 PM CST Lorri just confirmed she is 8 weeks , could they forgetfullness been due to that? Would like to postpone VEEG until after baby born. (RICCI) OR MANAGER [employer] * Telephone Encounter - Patito Voss - 08/27/2020 3:20 PM CST ----- Message from Austin Chavira RN sent at 08/09/2020 12:02 PM SENIOR MANAGER [employer] ----- Regarding: RE: VEEG This is fine. Although the req says no to prior EEG there is one in the system from 2016. Please flag for covid testing. Thanks Alyssa ----- Message ----- From: Patito Voss Sent: 08/09/2020 10:35 AM SENIOR MANAGER [employer] To: Austin Chavira RN Subject: FW: VEEG Please review, thanks! ----- Message ----- From: Jonna Hernandes RN Sent: 08/09/2020 8:47 AM SENIOR MANAGER [employer] To: Patito Voss Subject: VEEG Diagnostic EEG-Video (EMU) Requisition This form should be used for simple diagnostic studies. For complex diagnostic questions or surgical evaluations please use requisition '[email or web address]'. Once complete please route to Patito Voss. Contact Alyssa at [phone] for questions. Patient: Lorri Deshpande : 2000 Goal of Admission (clinical question to be answered): Please schedule 4 nights of VEEG for evaluation of am abdominal sensations with discontinuation of Trileptal. Indication and recommended length of admission: 4 night VEEG Request different monitoring period: No Request labs during admission: No Has the patient had a prior EEG: NO Allergies: -- Penicillin V -- Anaphylaxis -- Wasp Venom -- Anaphylaxis Current medications: Current Outpatient Medications on File Prior to Visit: ?? cyclobenzaprine (FLEXERIL) 10 mg tablet, , Disp: , Rfl: ?? DULoxetine DR (CYMBALTA) 30 mg capsule, Take 30 mg by mouth daily, Disp: , Rfl: ?? etonogestrel (NEXPLANON) 68 mg implant, 68 each by subdermal route continuous, Disp: , Rfl: ?? magnesium oxide 400 mg capsule, Take 1 cap daily (Patient not taking: Reported on 08/06/2020), Disp: 30 each, Rfl: 5 ?? OXcarbazepine (TRILEPTAL) 300 mg tablet, Take 1/2 tab (150 mg) in pm along with one 600 mg tab for total evening dose of 750 mg. (Patient taking differently: 150 mg 2 (two) times a day ), Disp: 15tablet, Rfl: 5 ?? OXcarbazepine (TRILEPTAL) 600 mg tablet, Take 1 tablet (600 mg total) by mouth 2 (two) times a day, Disp: 60 tablet, Rfl: 11 ?? prazosin (MINIPRESS) 2 mg capsule, Take 2 mg by mouth nightly, Disp: , Rfl: ?? Multi-DHA,with vit K, 27 mg iron-800 mcg-260 mg capsule, , Disp: , Rfl: No current facility-administered medications on file prior to visit. Patient implants (entered in [employer]): Implants No active implants to display in this view. Special accommodations: No Ordered by: Janeth Ronquillo Ordered on: 08/09/2020 Order accepted by: Date: Family Contacted Date(s): Scheduling contacts: Insurance issues: Date Finalized: [employer] documented in this encounter Plan of Treatment Not on file documented as of this encounter Visit Diagnoses Not on filedocumented in this encounter Discontinued Medications Medication Sig Discontinue Reason Start Date End Da te etonogestrel (NEXPLANON) 68 mg implant 68 each by subdermal route continuous Other 08/27/2020 documented as of this encounter
--- OUTSIDE RECORDS SUMMARY | 2024-08-05 00:22 | XMS_ITS | Encounter Summary ---
Author Organization [facility] Healthcare Address [address] [place] [address] Care Team Providers Care Road Inspector Name Role Phone Unavailable Primary Care Provider Unavailabl e Encounter Details Date Type Department Care Team (Late st Contact Info) Description 11/03/2019 4:44 PM CDT - 11/03/2019 9:15 PM CDT Hospital Encounter [facility] Emergency Department [facility] [place], [place] [id number] Unknown, Mike Bello Jr., MD [address] [place] [address] Discharge Disposition: Discharge to home or self care Social History Tobacco Use Types Packs/Day Years Used Date Smoking Tobacco: Never Smokeless Tobacco: Never Alcohol Use Standard Drinks/Week Comments Yes 0 (1 standard drink = 0.6 oz pur e alcohol) occasional Comments Unknown Sex and Gender Information Value Date Recorded Sex Assigned at Not on file 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 Gender Identity Female 03/11/2020 1:47 PM CDT Sexual Orientation Straight 03/11/2020 1: 47 PM CDT documented as of this encounter Last Filed Vital Signs Vital Sign Reading Time Taken Comments Blood Pressure 126/38 11/03/2019 5:14 PM CDT Pulse 117 11/03/2019 5:14 PM CDT Temperature 39.5 ??C (103.1 ??F) 11/03/2019 5:14 PM C DT Respiratory Rate - - Oxygen Saturation 97% 11/03/2019 5:14 PM CDT Inhaled Oxygen Concentration - - Weight 48.7 kg (107 lb 5.8 oz) 11/03/2019 5:14 P M CDT Height 165.1 cm (5' 5 ) 11/03/2019 5:14 PM CDT Body Mass Index 17.87 11/03/2019 5:14 PM CDT documented in this encounter Medications [...] Name Priority Date/Time Associated Diagnosis Comments US ABDOMEN COMPLETE W LIVER DOPPLER (C) 11/03/2019 6:54 PM CDT US TRANSVAGINAL 11/03/2019 6:54 PM CDT INFLUENZA A/B PCR Routine 11/03/2019 6:2 5 PM CDT URINALYSIS, COMPLETE W/REFLEX TO CULTURE Routine 11/03/2019 5:40 PM CDT BLOOD CULTURE Routine 11/03/2019 5:39 PM CDT SEPSIS LACTATE Routine 11/03/2019 5:38 PM CDT CBC WITH AUTO DIFFERENTIAL Routine 11/03/2019 5:38 PM CDT BLOOD CULTURE Routine 11/03/2019 5:38 PM CDT COMPREHENSIVE METABOLIC PANEL Routine 11/03/2019 5:38 PM CDT documented in this encounter Results * US Abdomen Complete W Liver Duplex (C) (11/03/2019 6:54 PM CDT) Anatomical Region Laterality Modality Abdomen Right Ultrasound 11/03/2019 7:49 PM CDT Narrative 11/03/2019 7:52 PM CDT Patient Name: SORAIDA CALDWELL ?Ordering Dr: Mike Armijo Jr, MD ?? D.O.B: 2000 ? Exam Date: 11/03/19 ?? 1854 ?? Age: 19 ?Sex: Female ? MR#: [id number] ?? Loc: ? RADIOLOGY REPORT ?? Order #[id number] ?? Ultrasound ? US Duplex Scan Complete ? Signed ? EXAM DESCRIPTION: ??Pelvic ultrasound transvaginal ? REASON FOR STUDY: ??Rule out ovarian torsion ? TECHNIQUE: ??Color Doppler imaging with waveforms obtained as part of the ?? transvaginal ultrasound with grayscale images. ? COMPARISON: ??Recent CT scan ? FINDINGS: ? Doppler ultrasound examination was performed with grayscale images as part of ?? the transvaginal ultrasound. ? Color flow identified in both the right and left ovaries. ? Central functional cyst in the right ovary. ??Arterial and venous waveforms ?? noted in the right ovary with arterial waveform peak systolic velocity 20 ?? centimeters/second and venous waveform peak systolic velocity approximately 5 ?? centimeters/second and 3 centimeters/second. ? Color Doppler identified within the left ovary with venous waveform ?? approximately 2.5 centimeters/second and arterial waveform approximately 2.5 ?? centimeters/second. ? IMPRESSION: ??Color Doppler identified in both the right and left ovaries. ??No ?? definitive findings of torsion such as ovarian enlargement/abnormal ?? echogenicity or abnormal vascularity. ??Central cyst within the right ovary ?? likely representing a functional ovarian cyst. ??Please see transvaginal ?? grayscale pelvic ultrasound report for further description and recommendations ?? for follow-up. ? THIS IS AN ELECTRONICALLY VERIFIED FINAL REPORT ?? 11/03/2019 7:52 PM - Electronically signed by Denys Boyd M.D. ?? Denys Boyd M.D. ? RL: RL ?? D: ??11/03/2019 7:52 PM ?? T: ??11/03/2019 7:52 PM ? Report ID: [id number] ?? Reading Location: ??[id number] ? REPORT ELECTRONICALLY SIGNED IN OTHER VENDOR SYSTEM ?? Resulting Agency Comment E Procedure Note Denys Boyd MD - 11/03/2019 Patient Name: SORAIDA CALDWELL Dr: Mike Armijo Jr, MD D.O.B: 2000 Exam Date: 11/03/19 185 Age: 19 Sex: Female MR#: [id number] Loc: RADIOLOGY REPORT Order #[id number] Ultrasound US Duplex Scan Complete Signed EXAM DESCRIPTION: Pelvic ultrasound transvaginal REASON FOR STUDY: Rule out ovarian torsion TECHNIQUE: Color Doppler imaging with waveforms obtained as part of the transvaginal ultrasound with grayscale images. COMPARISON: Recent CT scan FINDINGS: Doppler ultrasound examination was performed with grayscale images aspart of the transvaginal ultrasound. Color flow identified in both the right and left ovaries. Central functional cyst in the right ovary. Arterial and venouswaveforms noted in the right ovary with arterial waveform peak systolic velocity 20 centimeters/second and venous waveform peak systolic velocityapproximately 5 centimeters/second and 3 centimeters/second. Color Doppler identified within the left ovary with venous waveform approximately 2.5 centimeters/second and arterial waveform approximately2.5 centimeters/second. IMPRESSION: Color Doppler identified in both the right and left ovaries.No definitive findings of torsion such as ovarian enlargement/abnormal echogenicity or abnormal vascularity. Central cyst within the rightovary likely representing a functional ovarian cyst. Please see transvaginal grayscale pelvic ultrasound report for further description andrecommendations for follow-up. THIS IS AN ELECTRONICALLY VERIFIED FINAL REPORT 11/03/2019 7:52 PM - Electronically signed by Denys Boyd M.D. RL: SCOOBY Report ID: [id number] Reading Location: [id number] REPORT ELECTRONICALLY SIGNED IN OTHER VENDOR SYSTEM Mike Armijo Jr., MD IMYfn US PROCEDURES Final Result * US Transvaginal (11/03/2019 6:54 PM CDT) Anatomical Region Laterality Modality Pelvis N/A Ultrasound 11/03/2019 7:39 PM CDT Narrative 11/03/2019 7:49 PM CDT Patient Name: PAULETTE,SORAIDA Berger ?Ordering Dr: Haley Dickey PA-C ?? D.O.B: 2000 ? Exam Date: 11/03/19 ?? 1854 ?? Age: 19 ?Sex: Female ? MR#: [id number] ?? Loc: ? RADIOLOGY REPORT ?? Order #[id number] ?? Ultrasound ? US Transvaginal ? Signed ? EXAM DESCRIPTION: ??US Transvaginal ? REASON FOR STUDY: ??Rule out torsion. ??Bilateral lower abdominal pain since ?? yesterday. ??LMP 10/24/2019, still bleeding. ??Irregular menses. ??Miscarriage ?? April 08. ??Negative test. ??G1 miscarriage 1. ??D and C April ?? 2019. ??Bilateral pelvic pain since yesterday. ? TECHNIQUE: ??Ultrasound of the pelvic contents was performed with transvaginal ?? transducer. ??Grayscale and color doppler techniques were utilized. ? COMPARISON: ??CT scan of the abdomen and pelvis performed 11/03/2019. ? FINDINGS: ? UTERUS: Uterus is midline. ??Minimally anteverted. ??Measurements 7.2 x 3.2 x ?? 4.5 cm. ??The uterus is slightly heterogeneous myometrial echogenicity. ??No ?? definitive focal myometrial mass.. ??Normal color flow.. ? ENDOMETRIUM: The endometrium measures 3 mm in thickness.. ??There is a small ?? amount of fluid in the endocervical canal. ? RIGHT OVARY: The right ovary measures 2.9 x 2.1 x 3.4 cm. There is ?? documentation of color flow in the right ovary with both arterial and venous ?? waveforms noted, arterial waveform peak systolic velocity of 20 ?? centimeters/second and venous waveform peak systolic velocity approximately 5 ?? centimeters/second. ??There is a cyst centrally within the right ovary ?? measuring approximately 2.3 x 1.6 by 2.3 cm. ??This likely represents a ?? functional ovarian cyst given its size. ??There is an adjacent small follicle. ? No septation mural nodule or other worrisome architecture to the functional ?? cyst within the right ovary. ??Surrounding ovarian tissue demonstrates normal ?? echotexture. ? LEFT OVARY: The left ovary measures 2.1 x 1.6 x 1.6 cm. There is documentation ?? of color flow in the ovary. ??Venous waveform peak systolic velocity ?? approximately 2.5 centimeters/second arterial waveform approximately 5 ?? centimeters/second. ??Small follicles within the ovary. ? PELVIC FLUID: There is a small to moderate amount of free pelvic fluid, ?? nonspecific. ? OTHER: No other significant findings. ? IMPRESSION: ??No findings of ovarian torsion such as enlarged ovary with ?? abnormal echogenicity and color flow identified in both ovaries. ??There is a ?? central cyst within the right ovary measuring up to approximately 2.3 cm ?? likely representing a functional ovarian cyst. ??In a patient in this age group ?? no specific follow-up felt to be necessary based on clinical concern follow-up ?? imaging could be performed in 6 weeks time. ? Ultrasonographically normal left ovary with small follicles. ? There is a small amount of fluid in the endocervical canal consistent with the ?? persistence of some vaginal bleeding. ??No significant thickening of the ?? central endometrial echo complex is identified. ? The amount of pelvic fluid is slightly prominent but is nonspecific considered ?? more than typical mount of fluid 4 physiologic pelvic fluid. ??If there is ?? concern for proximal pelvic inflammatory disease in appropriate testing would ?? be suggested I do not see findings suggestive of an abscess. ? THIS IS AN ELECTRONICALLY VERIFIED FINAL REPORT ?? 11/03/2019 7:49 PM - Electronically signed by Denys Boyd M.D. ?? Denys Boyd M.D. ? RL: RL ?? D: ??11/03/2019 7:49 PM ?? T: ??11/03/2019 7:49 PM ? Report ID: [id number] ?? Reading Location: ??[id number] ? REPORT ELECTRONICALLY SIGNED IN OTHER VENDOR SYSTEM ?? Resulting Agency Comment E Procedure Note Denys Boyd MD - 11/03/2019 Patient Name: SORAIDA CALDWELL Dr: Haley Dickey PA-C, D.O.B: 2000 Exam Date: 11/03/19 1854 Age: 19 Sex: Female MR#: [id number] Loc: RADIOLOGY REPORT Order #[id number] Ultrasound US Transvaginal Signed EXAM DESCRIPTION: US Transvaginal REASON FOR STUDY: Rule out torsion. Bilateral lower abdominal painsince yesterday. LMP 10/24/2019, still bleeding. Irregular menses.Miscarriage April 08. Negative test. G1 miscarriage 1. D and CSept2018. Bilateral pelvic pain since yesterday. TECHNIQUE: Ultrasound of the pelvic contents was performed withtransvaginal transducer. Grayscale and color doppler techniques were utilized. COMPARISON: CT scan of the abdomen and pelvis performed 11/03/2019. FINDINGS: UTERUS: Uterus is midline. Minimally anteverted. Measurements 7.2 x 3.2x 4.5 cm. The uterus is slightly heterogeneous myometrial echogenicity.No definitive focal myometrial mass.. Normal color flow.. ENDOMETRIUM: The endometrium measures 3 mm in thickness.. There is asmall amount of fluid in the endocervical canal. RIGHT OVARY: The right ovary measures 2.9 x 2.1 x 3.4 cm. There is documentation of color flow in the right ovary with both arterial andvenous waveforms noted, arterial waveform peak systolic velocity of 20 centimeters/second and venous waveform peak systolic velocityapproximately 5 centimeters/second. There is a cyst centrally within the right ovary measuring approximately 2.3 x 1.6 by 2.3 cm. This likely represents a functional ovarian cyst given its size. There is an adjacent smallfollicle. No septation mural nodule or other worrisome architecture to thefunctional cyst within the right ovary. Surrounding ovarian tissue demonstratesnormal echotexture. LEFT OVARY: The left ovary measures 2.1 x 1.6 x 1.6 cm. There isdocumentation of color flow in the ovary. Venous waveform peak systolic velocity approximately 2.5 centimeters/second arterial waveform approximately 5 centimeters/second. Small follicles within the ovary. PELVIC FLUID: There is a small to moderate amount of free pelvic fluid, nonspecific. OTHER: No other significant findings. IMPRESSION: No findings of ovarian torsion such as enlarged ovary with abnormal echogenicity and color flow identified in both ovaries. Thereis a central cyst within the right ovary measuring up to approximately 2.3 cm likely representing a functional ovarian cyst. In a patient in this agegroup no specific follow-up felt to be necessary based on clinical concernfollow-up imaging could be performed in 6 weeks time. Ultrasonographically normal left ovary with small follicles. There is a small amount of fluid in the endocervical canal consistentwith the persistence of some vaginal bleeding. No significant thickening of the central endometrial echo complex is identified. The amount of pelvic fluid is slightly prominent but is nonspecificconsidered more than typical mount of fluid 4 physiologic pelvic fluid. If there is concern for proximal pelvic inflammatory disease in appropriate testingwould be suggested I do not see findings suggestive of an abscess. THIS IS AN ELECTRONICALLY VERIFIED FINAL REPORT 11/03/2019 7:49 PM - Electronically signed by Denys Boyd M.D. RL: SCOOBY Report ID: [id number] Reading Location: [place] [address] REPORT ELECTRONICALLY SIGNED IN OTHER VENDOR SYSTEM Haley [facility] US PROCEDURES Final Resul t * Influenza A/B PCR (11/03/2019 6:25 PM CDT) Pathologist [facility] Influenza A RNA POSITIVE NEGATIVE [facility] Influenza B RNA NEGATIVE NEGATIVE [facility] 11/03/2019 6:25 PM CDT 11/03/2019 6:35 PM CDT Narrative [facility] - 11/03/2019 7:03 PM CDT Collected By [facility] Resulting Agency Comment ER [facility] MICROBIOLOGY - GENERAL OR DERABLES Final Result [facility] [address], [facility] [phone] * URINALYSIS, COMPLETE W/REFLEX TO CULTURE (11/03/2019 5:40 PM CDT) Ur Collection Type CLEAN CATCH [facility] Ur Culture Indicated? C S NOT INDICATED [facility] [place] [facility] Urine Color YELLOW YELLOW [facility] Urine Clarity [facility] Urine Glucose (UA) NORMAL NEGATIVE mg/dL [facility] Urine Bilirubin NEGATIVE NEGATIVE mg/dl [facility] Urine Ketones 15 NEGATIVE mg/dL [facility] Ur Specific [place] 1.025 1.005 - 1.025 [facility] Urine Blood NEGATIVE NEGATIVE mg/dl [facility] Urine pH 7.0 5.0 - 9.0 [facility] Urine Protein NEGATIVE NEGATIVE mg/dL [facility] Urine Urobilinogen 1 <2 E.U./dL [facility] Urine Nitrite NEGATIVE NEGATIVE [facility] Ur Leukocyte Esterase NEGATIVE NEGATIVE Will/ul [facility] Ur Microscopic Review Indicated or Ordered [facility] Urine RBC 2 0 - 2 /HPF [facility] Urine WBC 1 0 - 2 /HPF [facility] Ur Squamous Epith Cells Rare /LPF [facility] 11/03/2019 5:40 PM CDT 11/03/2019 5:47 PM CDT Narrative [facility] - 11/03/2019 6:04 PM CDT Indication(s) for ordering ?? Pain-pelv/flank/suprapubc at Clean catch Resulting Agency Comment ER [facility] URINE ORDERABLES Final Re sult Performing Organization Address City/[facility]/ZIP Co de Phone Number [facility] [address] [place] [address] * Blood culture Blood (11/03/2019 5:39 PM CDT) CULTURE BLOOD ADULT (SET OF 2) NO GROWTH DAY 5 [facility] Blood 11/03/2019 5:39 PM CDT 11/03/2019 5:43 PM CDT [facility] MICROBIOLOGY - GENERAL OR DERABLES Final Result Performing Organization Address City/[facility]/ZIP Co de Phone Number [facility] [address] [phone] * Blood culture Blood (11/03/2019 5:38 PM CDT) [facility] CULTURE BLOOD ADULT (SET OF 2) NO GROWTH DAY 5 [facility] Blood 11/03/2019 5:38 PM CDT 11/03/2019 5:43 PM CDT [facility] MICROBIOLOGY - GENERAL OR DERABLES Final Result [facility] [address] [place] [address], [facility] [phone] * (ABNORMAL) Comprehensive metabolic panel (11/03/2019 5:38 PM CDT) [facility] Sodium 135 135 - 145 mmol/L [facility] Potassium 3.6 3.3 - 5.1 mmol/L [facility] Chloride 101 96 - 108 mmol/L [facility] Carbon Dioxide 22 22 - 32 mmol/L [facility] Anion Gap 12 7 - 16 [facility] Glucose 110(H) 70 - 100 mg/dL [facility] BUN 6(L) 8 - 25 mg/dL [facility] Creatinine 0.6 0.5 - 1.1 mg/dL [facility] Comment: NOTE: Estimated GFR (Cockroft-Gault) will NOT be calculated unless patient Height and Weight were entered. Also, Kidney Disease Stage (GFR) and Estimated GFR (Cockroft-Gault) will NOT be calculated if Creatinine result is <0.2. Kidney Disease Stage >90 mL/MIN [facility] Comment: NOTE; ??The GFR is an [...] failure or on dialysis Est GFR (Cockcroft-G) 116 ml/MIN [facility] Comment: Estimated GFR(Cockroft-Gault)is used to calculate patient medication dosage Calcium 8.9 8.6 - 10.3 mg/dL [facility] Total Protein 7.6 6.4 - 8.3 g/dL [facility] Albumin 4.5 3.5 - 5.0 g/dL [facility] Globulin 3.1 2.3 - 3.5 gm/dL [facility] Albumin/Globulin Ratio 1.5 1.1 - 1.8 [facility] Total Bilirubin 0.2 0.0 - 1.2 mg/dL [facility] AST 16 0 - 32 U/L [facility] ALT 11 0 - 33 U/L [facility] Alkaline Phosphatase 64 35 - 104 U/L [facility] 11/03/2019 5:38 PM CDT 11/03/2019 5:43 PM CDT Narrative Resulting Agency Comment ER us [facility] BLOOD ORDERABLES [place] [address], [facility] [phone] * Sepsis Lactate (11/03/2019 5:38 PM CDT) Sepsis lactate 1.6 mmol/L [facility] Comment: Lactate Reference Range: 0.5 - 2.2 mmol/L 11/03/2019 5:38 PM CDT 11/03/2019 5:46 PM CDT Narrative Resulting Agency Comment ER us Haley [facility] BLOOD ORDERABLES Final Re sult [facility] [address] [place] [address], [facility] [phone] * (ABNORMAL) CBC with auto differential (11/03/2019 5:38 PM CDT) WBC 5.1 3.8 - 9.9 X10 3/ul [facility] Comment: Results reviewed RBC 4.18 3.90 - 5.20 x10 6/ul [facility] Hemoglobin 11.7(L) 11.9 - 15.5 g/dL [facility] Hct 35.0(L) 35.6 - 45.5 % [facility] MCV 83.7 81.3 - 96.4 fl [facility] MCH 28.0 27.1 - 33.3 pg [facility] MCHC 33.4 32.3 - 35.7 g/dl [facility] RDW 13.9 11.1 - 14.9 % [facility] Plt Count 194 150 - 400 x10 3/ul [facility] MPV 8.9(L) 9.1 - 12.3 fl [facility] Neut % 82.7 % [facility] Immature Gran % 0.4 % [facility] Lymph % 9.3 % [facility] E AST - [facility] Howard % 6.2 % [facility] E AST - [employer] Eos % 0.4 % [facility] E AST - Cued AUTO BASO % 1.0 % [facility] NEUTROPHIL ABS # 4.3 1.7 - 6.5 x10 3/ul [facility] Immature Gran # 0.0 0.0 - 0.1 x10 3/ul [facility] Absolute Lymphs (auto) 0.5(L) 0.8 - 3.3 x10 3/ul [facility] Absolute Monos (auto) 0.3 0.2 - 0.8 x10 3/ul [facility] Absolute Eos (auto) 0.0 0.0 - 0.5 x10 3/ul [facility] BASOPHIL ABS # 0.1 0.0 - 0.1 x10 3/ul [facility] Nucleat RBC Rel Count 0.0 #/100WBC [facility] NRBC abs 0.00 0.00 - 0.01 x10 3/ul [facility] Absolute Neutrophils 4,300 200 - 8,000 /ul [facility] 11/03/2019 5:38 PM CDT 11/03/2019 5:43 PM CDT Narrative Resulting Agency Comment ER us [facility]aley [facility] BLOOD ORDERABLES [place] [address], [facility] [phone] documented in this encounter Visit Diagnoses Not on filedocumented in this encounter
--- OUTSIDE RECORDS SUMMARY | 2024-08-05 00:22 | XMS_ITS | Encounter Summary ---
Author Organization [facility] Address [address] [facility] [address] [place] [address] Phone Care Team Providers Care Clinical Investigator Name Role Phone Unavailable Primary Care Provider Unavailabl e Encounter Details Date Type Department Care Team (Late st Contact Info) Description 03/11/2020 Telephone [facility] Pediatric Neurology [address] [place] [address] Janeth Ronquillo MD [address] [facility] [phone] [place] [address] Social History Tobacco Use Types Packs/Day Years Used Date Smoking Tobacco: Never Smokeless Tobacco: Never Alcohol Use Standard Drinks/Week Comments Yes 0 (1 standard drink = 0.6 oz pur e alcohol) occasional Comments Unknown Sex and Gender Information Value Date Recorded Sex Assigned at Not on file 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 Let me know if there is some reason the patient is requesting face to face. Thanks, MB documented in this encounter Plan of Treatment Not on file documented as of this encounter Visit Diagnoses Not on filedocumented in this encounter
--- OUTSIDE RECORDS SUMMARY | 2024-08-05 00:22 | XMS_ITS | Encounter Summary ---
Author Organization [facility] Healthcare Address [address] [place] [address] Care Team Providers Care Lead Rider Name Role Phone Unavailable Primary Care Provider Unavailabl e Encounter Details Date Type Department Care Team (Late st Contact Info) Description 02/26/2020 4:11 PM CDT - 02/26/2020 6:42 PM CDT Hospital Encounter [facility] Emergency Department [facility] [place], [place] [id number] Unknown, Gordon Parham MD [address] [place] [phone] Discharge Disposition: Discharge to home or self care Social History Tobacco Use Types Packs/Day Years Used Date Smoking Tobacco: Never Smokeless Tobacco: Never Alcohol Use Standard Drinks/Week Comments Yes 0 (1 standard drink = 0.6 oz pur e alcohol) occasional Comments Unknown Sex and Gender Information Value Date Recorded Sex Assigned at Not on file 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 Gender Identity Female 03/11/2020 1:47 PM CDT Sexual Orientation Straight 03/11/2020 1: 47 PM CDT documented as of this encounter Last Filed Vital Signs Vital Sign Reading Time Taken Comments Blood Pressure 99/61 02/26/2020 4:15 PM CDT Pulse 79 02/26/2020 4:15 PM CDT Temperature 36.9 ??C (98.4 ??F) 02/26/2020 4:15 PM CD T Respiratory Rate - - Oxygen Saturation 94% 02/26/2020 4:15 PM CDT Inhaled Oxygen Concentration - - Weight 44.9 kg (98 lb 15.8 oz) 02/26/2020 4:15 P M CDT Height 160 cm (5' 3 ) 02/26/2020 4:15 PM CDT Body Mass Index 17.53 02/26/2020 4:15 PM CDT documented in this encounter Medications [...] Date/Time Associated Diagnosis Comments SCAN - LABS 02/27/2020 12:00 AM CDT documented in this encounter Results * SCAN - LABS (02/27/2020 12:00 AM CDT) Narrative 02/27/2020 12:00 AM CDT Ordered by an unspecified provider. us Historical Provider Final Res ult documented in this encounter Visit Diagnoses Not on filedocumented in this encounter
--- OUTSIDE RECORDS SUMMARY | 2024-08-05 00:22 | XMS_ITS | Encounter Summary ---
Author Organization [facility] Healthcare Address [address] [place] [address] Care Team Providers Care Clinical Assoc Name Role Phone Unavailable Primary Care Provider Unavailabl e Encounter Details Date Type Department Care Team (Late st Contact Info) Description 07/29/2018 2:47 PM BRIDGE WORKER - 07/29/2018 7:03 PM BRIDGE WORKER Hospital Encounter [facility], Margarita Garrison MD [address] [place] [address] [address] [place] [address] Viral infection; Epilepsy without status epilepticus, not intractable (CMS/HCC); Major depressive disorder, single episode; Post-traumatic stress disorder; Other fdc (current) drug therapy Social History Tobacco Use Types Packs/Day Years Used Date Smoking Tobacco: Never Assessed Comments Unknown Sex and Gender Information Value Date Recorded Sex Assigned at Not on file Legal Sex Female 6:22 AM BRIDGE WORKER Gender Identity Female 03/11/2020 1:47 PM CDT Sexual Orientation Straight 03/11/2020 1: 47 PM CDT documented as of this encounter Last Filed Vital Signs Vital Sign Reading Time Taken Comments Blood Pressure 119/46 07/29/2018 2:58 PM BRIDGE WORKER Pulse 95 07/29/2018 2:58 PM BRIDGE WORKER Temperature 37.7 ??C (99.9 ??F) 07/29/2018 2:58 PM CS T Respiratory Rate - - Oxygen Saturation 98% 07/29/2018 2:58 PM BRIDGE WORKER Inhaled Oxygen Concentration - - Weight 46.8 kg (103 lb 2.8 oz) 07/29/2018 2:58 P M BRIDGE WORKER Height 162.6 cm (5' 4 ) 07/29/2018 2:58 PM BRIDGE WORKER Body Mass Index 17.71 07/29/2018 2:58 PM BRIDGE WORKER Body Mass Index Percentile 6.31% 07/29/2018 2:5 8 PM BRIDGE WORKER Growth Chart: [facility] (Girls, 2- 20 Years) documented in this encounter Medications at Time of Discharge OXcarbazepine (TRILEPTAL) 300 mg tablet 1.5 tablet PO BID 04/07/2016 06/06/2019 documented as of this encounter Plan of Treatment Not on file documented as of this encounter Procedures Procedure Name Priority Date/Time Associated Diagnosis Comments HEMOGRAM WITH MANUAL DIFFERENTIAL Routine 07/29/2018 4:00 PM BRIDGE WORKER PHOSPHORUS Routine 07/29/2018 4:00 PM BRIDGE WORKER MAGNESIUM Routine 07/29/2018 4:00 PM BRIDGE WORKER COMPREHENSIVE METABOLIC PANEL Routine 07/29/2018 4:00 PM BRIDGE WORKER INFLUENZA VIRUS PCR, CDR Routine 07/29/2018 3:23 PM BRIDGE WORKER documented in this encounter Results * Phosphorus (07/29/2018 4:00 PM BRIDGE WORKER) Pathologist [facility] Phosphorus 2.8 2.5 - 4.5 mg/dL 07/29/2018 4:27 PM BRIDGE WORKER [facility] HISTORICAL RESULTS 07/29/2018 4:00 PM BRIDGE WORKER 07/29/2018 4:04 PM BRIDGE WORKER us Margarita Morris MD LAB BLOOD ORDERABLES Fi nal Result [facility] HISTORICAL RESULTS * Magnesium (07/29/2018 4:00 PM BRIDGE WORKER) Pathologist [facility] Magnesium 1.7 1.6 - 2.6 mg/dL Comment:Magnesium sulfate th erapy: 3.0-9.1 mg/dL 07/29/2018 4:00 PM BRIDGE WORKER 07/29/2018 4:04 PM BRIDGE WORKER us Margarita Morris MD LAB BLOOD ORDERABLES Fi nal Result [facility] HISTORICAL RESULTS * (ABNORMAL) Comprehensive metabolic panel (07/29/2018 4:00 PM BRIDGE WORKER) Sodium 134(L) 135 - 145 mmol/L Potassium 3.9 3.3 - 5.1 mmol/L Chloride 97 96 - 108 mmol/L Carbon Dioxide 23 22 - 32 mmol/L Anion Gap 14 7 - 16 Glucose 89 70 - 100 mg/dL BUN 9 5 - 18 mg/dL Creatinine 0.6 0.5 - 1.1 mg/dL Comment: NOTE: Estimated GFR (Cockroft-Gault) will NOT be calculated unless patient Height and Weight were entered. Also, Kidney Disease Stage (GFR) and Estimated GFR (Cockroft-Gault) will NOT be calculated if Creatinine result is <0.2. Kidney Disease Stage TNP mL/MIN Est GFR (Cockcroft-G) TNP ml/MIN Calcium 9.3 8.4 - 10.2 mg/dL Total Protein 8.0 6.4 - 8.3 g/dL 07/29/2018 4:27 PM BRIDGE WORKER [facility] HISTORICAL RESULTS Albumin 4.5 3.2 - 4.5 g/dL Globulin 3.5 2.3 - 3.5 gm/dL Albumin/Globulin Ratio 1.3 1.1 - 1.8 Total Bilirubin 0.5 0.0 - 1.2 mg/dL AST 20 0 - 32 U/L ALT 15 0 - 33 U/L Alkaline Phosphatase 117(H) 45 - 87 U/L 07/29/2018 4:00 PM BRIDGE WORKER 07/29/2018 4:04 PM [facility] us Margarita Morris MD LAB BLOOD ORDERABLES Fi nal Result [facility] HISTORICAL RESULTS * (ABNORMAL) Hemogram with manual differential (07/29/2018 4:00 PM BRIDGE WORKER) WBC 12.6(H) 3.8 - 9.9 X10 3/ul RBC 4.83 3.90 - 5.20 x10 6/ul Hemoglobin 13.3 11.9 - 15.5 g/dL Hct 40.6 35.6 - 45.5 % MCV 84.1 81.3 - 96.4 fl MCH 27.5 27.1 - 33.3 pg 07/29/2018 4:09 PM BRIDGE WORKER [facility] HISTORICAL RESULTS MCHC 32.8 32.3 - 35.7 g/dl 07/29/2018 4:09 PM BRIDGE WORKER [facility] Active [facility] HISTORICAL RESULTS RDW 14.1 11.1 - 14.9 % 07/29/2018 4:09 PM BRIDGE WORKER [facility] Active DSP [facility] HISTORICAL RESULTS Plt Count 285 150 - 400 x10 3/ul 07/29/2018 4:09 PM BRIDGE WORKER [facility] Active [facility] HISTORICAL RESULTS MPV 9.0(L) 9.1 - 12.3 fl 07/29/2018 4:09 PM [email or web address] [facility] Vo[employer] HISTORICAL RESULTS MANUAL DIFF MANUAL DIFF - 07/29/2018 5:24 PM [email or web address] [facility] Active [facility] HISTORICAL RESULTS Neutrophils % (Manual) 77 % 07/29/2018 5:24 PM [email or web address] [facility] Vo[employer] HISTORICAL RESULTS Lymphocytes % (Manual) 15 % 07/29/2018 5:24 PM [email or web address] [facility] Active [facility] HISTORICAL RESULTS Atypical Lymphs % 3 0 - 6 % 07/29/2018 5:24 PM [email or web address] [facility] Vo[employer] HISTORICAL RESULTS Monocytes % (Manual) 5 % 07/29/2018 5:24 PM [email or web address] [facility] Vo[employer] HISTORICAL RESULTS ABSOLUTE COUNTS ABSOLUTE COUNTS - 07/29/2018 5:24 PM [email or web address] [facility] Vo[employer] HISTORICAL RESULTS Abs Neuts cells/mm3 9702 /ul 07/29/2018 5:24 PM [email or web address] [facility] [employer] HISTORICAL RESULTS Absolute Neutrophils 9.7(H) 1.7 - 6.5 x10 3/ul 07/29/2018 5:24 PM [email or web address] [facility] Vo[employer] HISTORICAL RESULTS Absolute Lymphocytes 1.9 0.8 - 3.3 x10 3/ul 07/29/2018 5:24 PM [email or web address] [facility] Vo[employer] HISTORICAL RESULTS ATYPICAL LYMPH ABS# 0.4(H) 0 - 0.3 x10 3/ul 07/29/2018 5:24 PM [email or web address] [facility] Vo[employer] HISTORICAL RESULTS Absolute Monocytes 0.6 0.2 - 0.8 x10 3/ul 07/29/2018 5:24 PM [email or web address] [facility] Vo[employer] HISTORICAL RESULTS Platelet Evaluation AGREE AGREE 07/29/2018 5:24 PM [email or web address] [facility] Active [facility]SP [facility] [employer] HISTORICAL RESULTS Comment:Slide review of plat elets correlates with instrument count. RBC Morphology NORMAL NORMAL 07/29/2018 5:24 PM BRIDGE WORKER [facility] HISTORICAL RESULTS 07/29/2018 4:00 PM BRIDGE WORKER 07/29/2018 4:04 PM BRIDGE WORKER us Margarita Morris MD LAB BLOOD ORDERABLES Fi nal Result [facility] HISTORICAL RESULTS * Influenza virus PCR (07/29/2018 3:23 PM BRIDGE WORKER) Influenza A RNA FLU A NEGATIVE NEGATIVE 07/29/2018 4:18 PM BRIDGE WORKER [facility] HISTORICAL RESULTS Influenza B RNA FLU B NEGATIVE NEGATIVE 07/29/2018 4:18 PM BRIDGE WORKER [facility] HISTORICAL RESULTS 07/29/2018 3:23 PM BRIDGE WORKER 07/29/2018 3:34 PM BRIDGE WORKER Narrative [facility] HISTORICAL RESULTS - 07/29/2018 4:18 PM BRIDGE WORKER Collected By VR us Margarita Morris MD LAB MICROBIOLOGY - GENE RAL ORDERABLES Final Result Performing Organization Address [facility]/ZIP Co de Phone Number [facility] HISTORICAL RESULTS documented in this encounter Visit Diagnoses Diagnosis Viral infection Epilepsy without status epilepticus, not intractable (HCC) Major depressive disorder, single episode Major depressive disorder, single episode, unspecified Post-traumatic stress disorder Posttraumatic stress disorder 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
--- OUTSIDE RECORDS SUMMARY | 2024-08-05 00:22 | XMS_ITS | Encounter Summary ---
Author Organization [facility] Healthcare Address [address] [place] [address] Care Team Providers Care Facility Mechanic Name Role Phone Unavailable Primary Care Provider Unavailabl e Encounter Details Date Type Department Care Team (Late st Contact Info) Description 02/19/2019 10:05 AM CDT - 02/19/2019 1:07 PM CDT Hospital Encounter [facility] Emergency Department [address] [place] [phone] Unknown, Elizabeth Valladares MD [address] [facility] [place] [address] Discharge Disposition: Discharge to home or self care Social History Tobacco Use Types Packs/Day Years Used Date Smoking Tobacco: Never Assessed Comments Unknown Sex and Gender Information Value Date Recorded Sex Assigned at Not on file Legal Sex Female 6:22 AM CLEAN UP PERSON Gender Identity Female 03/11/2020 1:47 PM CDT Sexual Orientation Straight 03/11/2020 1: 47 PM CDT documented as of this encounter Last Filed Vital Signs Vital Sign Reading Time Taken Comments Blood Pressure 114/67 02/19/2019 10:06 AM CDT Pulse 64 02/19/2019 10:06 AM CDT Temperature 36.7 ??C (98 ??F) 02/19/2019 10: 06 AM CDT Respiratory Rate - - Oxygen Saturation 100% 02/19/2019 10: 06 AM CDT Inhaled Oxygen Concentration - - Weight 46.8 kg (103 lb 2.8 oz) 02/20/20 19 10:06 AM CDT Height 162.6 cm (5' 4 ) 02/19/2019 10:0 6 AM CDT Body Mass Index 17.71 02/19/2019 10:06 AM CDT Body Mass Index Percentile 5.30% 02/19 10:06 AM CDT Growth Chart: [facility] (Girls, 2- 20 Years) documented [...] 08/06/2018 03/19/2019 documented as of this encounter Discharge Disposition Disposition Code Departure Means Destination Discharge to home or self care documented in this encounter Plan of Treatment Not on file documented as of this encounter Procedures Procedure Name Priority Date/Time Associated Diagnosis Comments CBC WITH AUTO DIFFERENTIAL Routine 02/19/2019 11:31 AM CDT D-DIMER, QUANTITATIVE Routine 02/19/2019 11:31 AM CDT COMPREHENSIVE METABOLIC PANEL Routine 02/19/2019 11:31 AM CDT XR CHEST PA LATERAL 2 VIEWS 02/19/2019 12:00 AM CDT documented in this encounter Results * (ABNORMAL) Comprehensive metabolic panel (02/19/2019 11:31 AM CDT) Sodium 139 135 - 145 mmol/L [facility] Potassium 3.8 3.3 - 5.1 mmol/L [facility] Chloride 103 96 - 108 mmol/L [facility] Carbon Dioxide 25 22 - 32 mmol/L [facility] Anion Gap 11 7 - 16 [facility] Glucose 90 70 - 100 mg/dL [facility] BUN 7(L) 9 - 18 mg/dL [facility] Creatinine 0.4(L) 0.5 - 1.1 mg/dL [facility] Comment: NOTE: Estimated GFR (Cockroft-Gault) will NOT be calculated unless patient Height and Weight were entered. Also, Kidney Disease Stage (GFR) and Estimated GFR (Cockroft-Gault) will NOT be calculated if Creatinine result is <0.2. Kidney Disease Stage >90 mL/MIN [facility] Comment: NOTE; ??The GFR is an [...] failure or on dialysis Est GFR (Cockcroft-G) 169 ml/MIN [facility] Comment: Estimated GFR(Cockroft-Gault)is used to calculate patient medication dosage Calcium 9.4 8.6 - 10.3 mg/dL [facility] Total Protein 7.8 6.4 - 8.3 g/dL [facility] Albumin 4.7 3.5 - 5.0 g/dL [facility] Globulin 3.1 2.3 - 3.5 gm/dL [facility] Albumin/Globulin Ratio 1.5 1.1 - 1.8 [facility] Total Bilirubin 0.5 0.0 - 1.2 mg/dL [facility] AST 15 0 - 32 U/L [facility] ALT 10 0 - 33 U/L [facility] Alkaline Phosphatase 95(H) 45 - 87 U/L [facility] 02/19/2019 11:3 1 AM CDT 02/19/2019 11:33 AM CDT Narrative Resulting Agency Comment ER Elizabeth Reynolds MD LAB BLOOD ORDERABLES Vandana l Result Performing Organization Address [facility] de Phone Number [address] [phone] * D-dimer, quantitative (02/19/2019 11:31 AM CDT) D-Dimer, Quantitative 0.34 0.00 - 0.50 FEUug/ml [facility] Comment: Studies indicate that a D-Dimer level of <0.50 FEUug/ml has a >95% negative predictive value for DVT,DIC,PE and other embolus conditions. ??Levels >0.50 FEUug/ml may be present in a wide variety of conditions and should not be considered diagnostic of any disease state. 02/19/2019 11:3 1 AM CDT 02/19/2019 11:33 AM CDT Narrative Resulting Agency Comment ER Elizabeth Reynolds MD LAB BLOOD ORDERABLES Vandana l Result Performing Organization Address [facility] Co de Phone Number [address] [phone] * CBC with auto differential (02/19/2019 11:31 AM CDT) WBC 7.5 3.8 - 9.9 X10 3/ul [facility] RBC 4.72 3.90 - 5.20 x10 6/ul [facility] Hemoglobin 13.1 11.9 - 15.5 g/dL [facility] Hct 39.8 35.6 - 45.5 % [facility] MCV 84.3 81.3 - 96.4 fl [facility] MCH 27.8 27.1 - 33.3 pg [facility] MCHC 32.9 32.3 - 35.7 g/dl [facility] RDW 13.7 11.1 - 14.9 % [facility] Plt Count 313 150 - 400 x10 3/ul [facility] MPV 9.1 9.1 - 12.3 fl [facility] Neut % 54.0 % [facility] Immature Gran % 0.3 % [facility] Lymph % 34.6 % [facility] Sher[place] % 6.4 % [facility] Eos % 3.8 % [facility] AUTO BASO % 0.9 % [facility] NEUTROPHIL ABS # 4.0 1.7 - 6.5 x10 3/ul [facility] Immature Gran # 0.0 0.0 - 0.1 x10 3/ul [facility] Absolute Lymphs (auto) 2.6 0.8 - 3.3 x10 3/ul [facility] Absolute Monos (auto) 0.5 0.2 - 0.8 x10 3/ul [facility] Absolute Eos (auto) 0.3 0.0 - 0.5 x10 3/ul [facility] BASOPHIL ABS # 0.1 0.0 - 0.1 x10 3/ul [facility] Nucleat RBC Rel Count 0.0 #/100WBC [facility] NRBC abs 0.00 0.00 - 0.01 x10 3/ul [facility] Absolute Neutrophils 4,000 200 - 8,000 /ul [facility] 02/19/2019 11:3 1 AM CDT 02/19/2019 11:33 AM CDT Narrative Resulting Agency Comment ER Elizabeth Reynolds MD LAB BLOOD ORDERABLES Vandana crews Result [place] [address], [facility] [phone] * XR Chest Pa Lateral 2 Views (02/19/2019 12:00 AM CDT) Anatomical Region Laterality Modality Body, Chest N/A Radiographic Chiqui ging 02/19/2019 12:1 5 PM CDT Narrative 02/19/2019 12:17 PM CDT Patient Name: SORAIDA CALDWELL ?Ordering Dr: Elizabeth Reynolds MD ?? D.O.B: 2000 ? Exam Date: 02/19/19 ?? 0000 ?? Age: 18 ?Sex: Female ? MR#: [id number] ?? Loc: ? RADIOLOGY REPORT ?? Order #[id number] ?? Radiology ? Chest 2 Views ? Signed ? EXAM DESCRIPTION: ??Chest 2 Views ? REASON FOR STUDY: ??2 lumps in the right breast for 1 week, shortness of breath ?? and chest pain today. ? TECHNIQUE: ??Frontal and lateral radiographic views of the chest acquired. ? COMPARISON: ??Chest radiograph dated 12/12/2016 ? FINDINGS: ? LUNGS/PLEURA: No focal consolidation or pneumothorax. No pleural effusion. ? HEART/MEDIASTINUM: The heart is not enlarged. ? HARDWARE/LINES/TUBES: Tubular radiopaque 4 cm focus projects in the medial ?? left upper extremity soft tissues. ? BONES: Without acute interval change. ? IMPRESSION: ? 1. ??The lungs are clear. ? 2. ??Chest wall/breast mass cannot be adequately assessed on chest radiography. ?Need for correlation physical examination and mammography as clinically ?? indicated. ? 3. ??Tubular 4 cm focus projecting over the left upper extremity soft tissues ?? may be related to an implantable device or summation artifact. ??Please ?? correlate with physical examination and patient's history. ? THIS IS AN ELECTRONICALLY VERIFIED FINAL REPORT ?? 02/19/2019 12:17 PM - Electronically signed by Paul Yip D.O. ?? Paul Yip D.O. ? AP: AP ?? D: ??02/19/2019 12:17 PM ?? T: ??02/19/2019 12:17 PM ? Report ID: [id number] ?? Reading Location: ??[id number] ? REPORT ELECTRONICALLY SIGNED IN OTHER VENDOR SYSTEM ?? Resulting Agency Comment E Procedure Note Paul Yip, DO - 02/19/2019 Patient Name: SORAIDA CALDWELL Dr: Elizabeth Reynolds MD D.O.B: 2000 Exam Date: 02/19/19 0000 Age: 18 Sex: Female MR#: [id number] Loc: RADIOLOGY REPORT Order #[id number] Radiology Chest 2 Views Signed EXAM DESCRIPTION: Chest 2 Views REASON FOR STUDY: 2 lumps in the right breast for 1 week, shortness ofbreath and chest pain today. TECHNIQUE: Frontal and lateral radiographic views of the chest acquired. COMPARISON: Chest radiograph dated 12/12/2016 FINDINGS: LUNGS/PLEURA: No focal consolidation or pneumothorax. No pleuraleffusion. HEART/MEDIASTINUM: The heart is not enlarged. HARDWARE/LINES/TUBES: Tubular radiopaque 4 cm focus projects in themedial left upper extremity soft tissues. BONES: Without acute interval change. IMPRESSION: 1. The lungs are clear. 2. Chest wall/breast mass cannot be adequately assessed on chestradiography. Need for correlation physical examination and mammography as clinically indicated. 3. Tubular 4 cm focus projecting over the left upper extremity softtissues may be related to an implantable device or summation artifact. Please correlate with physical examination and patient's history. THIS IS AN ELECTRONICALLY VERIFIED FINAL REPORT 02/19/2019 12:17 PM - Electronically signed by Paul Yip D.O. AP: MARIBEL Report ID: [id number] Reading Location: [id number] REPORT ELECTRONICALLY SIGNED IN OTHER VENDOR SYSTEM Elizabeth Reynolds MD IMG XR PROCEDURES Final R esult documented in this encounter Visit Diagnoses Not on filedocumented in this encounter
--- OUTSIDE RECORDS SUMMARY | 2024-08-05 00:22 | XMS_ITS | Encounter Summary ---
Author Organization [facility] Address [address] [place] [address] Phone Care Team Providers Care Pet Food Deboner Name Role Phone Unavailable Primary Care Provider Unavailabl e Reason for Visit * Reason Onset Date Comments Letter for School/Work 03/27/2019 Encounter Details Date Type Department Care Team (Late st Contact Info) Description 03/27/2019 Telephone 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 * Telephone Encounter - Janeth Ronquillo MD - 03/27/2019 3:13 PM CDT Yes, thanks. MB * Telephone Encounter - Anabel Piedra RN - 03/27/2019 2:[address] Ronquillo- Spoke with Lorri. The letter you provided at was for running cross country. Is it OK for Dorono participate in wrestling as well? I will draft and FAX letter. Thanks- * Telephone Encounter - Madison Zamarripa ST - 03/27/2019 1:09 PM CDT Pt is asking for a letter of clearance for participation in wrestling. School starts 04/02. Send to: [facility] F: [phone] documented in this encounter Plan of Treatment Not on file documented as of this encounter Visit Diagnoses Not on filedocumented in this encounter
--- OUTSIDE RECORDS SUMMARY | 2024-08-05 00:22 | XMS_ITS | Encounter Summary ---
Author Organization [facility] Healthcare Address [address] [place] [address] Care Team Providers Care Senior C Developer Name Role Phone Unavailable Primary Care Provider Unavailabl e Encounter Details Date Type Department Care Team (Late st Contact Info) Description 10/14/2019 2:33 PM DIRECTOR CASE MANAGEMENT Hospital Encounter [facility] Unknown, Notinfile Social History Tobacco Use Types Packs/Day Years Used Date Smoking Tobacco: Never Smokeless Tobacco: Never Alcohol Use Standard Drinks/Week Comments Yes 0 (1 standard drink = 0.6 oz pur e alcohol) occasional Comments Unknown Sex and Gender Information Value Date Recorded Sex Assigned at Not on file Legal Sex Female 6:22 AM DIRECTOR CASE MANAGEMENT Gender Identity Female 03/11/2020 1:47 PM CDT [...] nightly 1 documented as of this encounter Plan of Treatment Not on file documented as of this encounter Visit Diagnoses Not on filedocumented in this encounter
--- OUTSIDE RECORDS SUMMARY | 2024-08-05 00:22 | XMS_ITS | Encounter Summary ---
Author Organization [facility] Address [address] [facility] [address] [place] [address] Phone Care Team Providers Care Commercial Baking Teacher Name Role Phone Unavailable Primary Care Provider Unavailabl e Encounter Details Date Type Department Care Team (Late st Contact Info) Description 08/06/2020 Telephone [facility] Pediatric Neurology [facility] 2nd [place] [address] [place] [address] Janeth Ronquillo MD [address] [facility] [phone] [place] [address] Social History Tobacco Use Types Packs/Day Years Used Date Smoking Tobacco: Never Smokeless Tobacco: Never Alcohol Use Standard Drinks/Week Comments Yes 0 (1 standard drink = 0.6 oz pur e alcohol) occasional Comments Unknown Sex and Gender Information Value Date Recorded Sex Assigned at Not on file Legal Sex Female 6:22 AM TELEPHONE SOLICITOR SUPERVISOR Gender Identity Female 03/11/2020 1:47 PM CDT Sexual Orientation Straight 03/11/2020 1: 47 PM CDT documented as of this encounter Miscellaneous Notes * Telephone Encounter - Adriane Hernandes RN - 08/09/2020 8:54 AM TELEPHONE SOLICITOR SUPERVISOR Sent in order to [facility] for 4 night VEEG. PHONE SOLICITOR SUPERVISOR * Telephone Encounter - Janeth Ronquillo MD - 08/06/2020 4:26 PM CST Please schedule 4 nights of VEEG for evaluation of am abdominal sensations with discontinuation of Trileptal. PHONE SOLICITOR SUPERVISOR documented in this encounter Plan of Treatment Not on file documented as of this encounter Visit Diagnoses Not on filedocumented in this encounter
== END 2024-08-01 15:00 | disposition home or self-care (01) ==
PROVIDERS: Visit Provider Obstetrics & Gynecology Gynecology
DX: Z36.87 Encounter for antenatal screening for uncertain dates (principal); O20.8 Other hemorrhage in early pregnancy; Z3A.00 Weeks of gestation of pregnancy not specified
CPT/HCPCS: 76801

== ENCOUNTER 2024-11-18 07:11 | Outpatient (CLI) | payer OTHER, SELFPAY ==
--- OUTSIDE RECORDS SUMMARY | 2024-11-18 07:15 | XMS_ITS | Clinical Summary ---
Author Organization [facility] Address [address] [place] [address] Phone Care Team Providers Care Utility Assembler Name Role Phone Unknown, Notinfile Unavailable Unavailable Unknown, Notinfile Primary Care Provider Unavail able Allergies Active Allergy Reactions Criticality Noted Date Comments Ceftriaxone Dizziness,Other (See comments) Low 11/07/2020 Dizziness/Light Headed numbness Depo-Provera Contraceptive Anaphylaxis High 12/23/2021 Throat closes Medroxyprogest-Estradio l Cyp Unknown 09/05/2021 Penicillin V Anaphylaxis High 07/21/2020 Wasp Venom Anaphylaxis High 07/21/2020 Medications [id number] acid 29 mg iron- 1 mg tablet,chewable [...] 03/12/2020 Assessment & Plan (07/13/2021 8:50 AM POLICY AND PLANNING MANAGER): Follows with neurology, reviewed notes Continue trileptal Major depression in remission 03/12/2020 Assessment & Plan (07/12/2021 3:14 PM POLICY AND PLANNING MANAGER): Stable Continue cymbalta PTSD (post-traumatic stress disorder) 03/12/2020 Immunizations Immunization Administration Dates Next Due Influenza, Quadrivalent, Spl [...] week 03/26/2023 How often do you attend [facility] or scientology services? More than 4 times per year 03/26/2023 Do you belong to any clubs o r organizations such as sabianist groups, unions, fraternal or athletic groups, or [...] on file Legal Sex Female 6:22 AM POLICY AND PLANNING MANAGER Gender Identity Female 03/11/2020 1:47 PM [...] 90 11/06/2023 1:20 PM CDT Temperature 36.4 C (97.6 F) 11/06/2023 1:20 PM CDT Respiratory Rate 14 11/06/2023 1:20 PM CDT [...] Vaccines (1 - 3-dose series) 2015 Hepatitis B Screening 2018 Regular Well Visit/Exam [...] TRACHOMATIS AMPLIFICATION TEST Routine 06/23/2020 5:50 AM POLICY AND PLANNING MANAGER from Last 3 Months or Most Recently Relevant to Health Maintenance Results * N. gonorrhoeae/C. trachomatis amplification test (06/23/2020 5:50 AM POLICY AND PLANNING MANAGER) C. trachomatis RNA TNP M [facility] N. gonorrhoeae RNA TNP [facility] Chlamydia/GC Source URINE [facility] Comment: This assay detects Chlamydia trachomatis and Neisseria gonorrhoeae by nucleic acid amplification testing (NAAT). Disclaimer: This Test is not FDA approved in females less than 14 years of age and in males less than 17 years of age. All positive CT/NG results on non-FDA approved pediatric age group patients have been confirmed positive by repeat testing. 06/23/2020 5:50 AM POLICY AND PLANNING MANAGER 06/23/2020 7:05 AM POLICY AND PLANNING MANAGER Narrative [facility] - 06/23/2020 7:07 AM POLICY AND PLANNING MANAGER Urine collection method First catch lessthan 50ml Collected By ca Urine Resulting Agency Comment ER Blanca Casey DO LAB MICROBIOLOGY - GENERAL ORDE SRINIVASA Final Result Performing Organization Address City/State/[facility] Co de Phone Number [facility] [address] [phone] from Last 3 Months or Most Recently Relevant to Health Maintenance Insurance [facility] IDPA IDPA Advance Directives For more information, please contact: [phone] * Full Code (Latest Code Status on File) Date Activated Date Inactivated Comments 03/26/2023 3:25 AM 03/27/2023 5:51 PM Care Teams Utility Assembler Relationship Specialty Start Date End Date Unknown, Notinfile PCP - General 10/20/22 Unknown, Notinfile 07/12/21
--- OUTSIDE RECORDS SUMMARY | 2024-11-18 07:15 | XMS_ITS | Referral Summary ---
Author Organization [facility] Address [address] [place] [address] Phone Care Team Providers Care Specialty Trimmer Name Role Phone Unknown, Notinfile Unavailable Unavailable Unknown, Notinfile Primary Care Provider Unavail able Allergies Active Allergy Reactions Criticality Noted Date Comments Ceftriaxone Dizziness,Other (See comments) Low 11/07/2020 Dizziness/Light Headed numbness Depo-Provera Contraceptive Anaphylaxis High 12/23/2021 Throat closes Medroxyprogest-Estradio l Cyp Unknown 09/05/2021 Penicillin V Anaphylaxis High 07/21/2020 Wasp Venom Anaphylaxis High 07/21/2020 Medications [id number] acid 29 mg iron- 1 mg tablet,chewable [...] 03/12/2020 Assessment & Plan (07/13/2021 8:50 AM DIRECTOR TELEHEALTH): Follows with neurology, reviewed notes Continue trileptal Major depression in remission 03/12/2020 Assessment & Plan (07/12/2021 3:14 PM DIRECTOR TELEHEALTH): Stable Continue cymbalta PTSD (post-traumatic stress disorder) [...] week 03/26/2023 How often do you attend [facility] or anabaptist services? More than 4 times per year 03/26/2023 Do you belong to any clubs o r organizations such as denominational groups, unions, fraternal or athletic groups, or [...] place to sleep or slept in a group home (including now)? No 03/26/2023 Personal Safety Answer Date Recorded Getting School Help Needed Not on file 04/27 Comments No Sex and Gender Information Value Date Recorded Sex Assigned at Not on file Legal Sex Female 6:22 AM DIRECTOR TELEHEALTH Gender Identity Female 03/11/2020 1:47 PM CDT [...] TRACHOMATIS AMPLIFICATION TEST Routine 06/23/2020 5:50 AM DIRECTOR TELEHEALTH from Last 3 Months or Most Recently Relevant to Health Maintenance Results * N. gonorrhoeae/C. trachomatis amplification test (06/23/2020 5:50 AM DIRECTOR TELEHEALTH) Pathologist [facility] C. trachomatis RNA TNP [facility] N. gonorrhoeae RNA TNP [facility] Chlamydia/GC Source URINE [facility] Comment: This assay detects Chlamydia trachomatis and Neisseria gonorrhoeae by nucleic acid amplification testing (NAAT). Disclaimer: This Test is not FDA approved in females less than 14 years of age and in males less than 17 years of age. All positive CT/NG results on non-FDA approved pediatric age group patients have been confirmed positive by repeat testing. 06/23/2020 5:50 AM DIRECTOR TELEHEALTH 06/23/2020 7:05 AM DIRECTOR TELEHEALTH Narrative [facility] - 06/23/2020 7:07 AM DIRECTOR TELEHEALTH Urine collection method First catch lessthan 50ml Collected By ga Urine Resulting Agency Comment ER us Blanca Casey DO LAB MICROBIOLOGY - GENERAL ORDE [place] [address], [facility] [phone] from Last 3 Months or Most Recently Relevant to Health Maintenance Insurance [facility]UE [facility] [employer] Advance Directives For more information, please contact: [phone] * Full Code (Latest Code Status on File) Date Activated Date Inactivated Comments 03/26/2023 3:25 AM 03/27/2023 5:51 PM Care Teams Specialty Trimmer Relationship Specialty Start Date End Date Unknown, Notinfile PCP - General 10/20/22 Unknown, Notinfile 07/12/21
[2024-11-18 09:04] LABS: Basophils Absolute Auto 0.1 K/mm3 (0.0-0.1); Basophils Percent Auto 0.5 % (0.2-1.2); Eosinophils Absolute Auto 0.3 K/mm3 (0-0.3); Eosinophils Percent Auto 3.3 % (0-4.4); Hematocrit 34.9 % (37.0-47.0); Hemoglobin 11.2 g/dL (12.0-15.0); Immature Granulocyte Absolute 0.11 K/mm3 (0.00-0.031); Immature Granulocyte Percent A 1.1 % (0-0.5); Lymphocytes Absolute Auto 1.96 K/mm3 (0.9-3.2); Lymphocytes Percent Auto 19.7 % (18.3-44.2); Mean Corpuscular HGB Conc 32.1 g/dl (32-36); Mean Corpuscular Hemoglobin 26.9 pg (26-34); Mean Corpuscular Volume 83.9 fl (80-100); Mean Platelet Volume 8.8 fl (7.4-10.4); Monocytes Absolute Auto 0.7 K/mm3 (0.1-0.6); Monocytes Percent Auto 6.8 % (2.6-8.5); Neutrophils Absolute Auto 6.8 K/mm3 (1.3-6.7); Neutrophils Percent Auto 68.6 % (45.5-73.1); Platelet Count Result 337 k/mm3 (150-375); Red Blood Count 4.16 M/mm3 (4.2-5.4); Red Cell Distribution Width 13.9 % (11.5-14.5); White Blood Count 9.9 K/mm3 (4.5-10.0)
[2024-11-18 09:29] LABS: Glucose 1 Hour PP 50gm Dose 93 mg/dL
[2024-11-18 09:59] LABS: Free T4 Free Thyroxine 1.02 ng/dL (0.78-2.19); Vitamin D 25 Hydroxy 20.5 ng/mL
[2024-11-18 10:00] LABS: Thyroid Stimulating Hormone 0.614 uIU/mL (0.465-4.680)
[2024-11-18 10:07] LABS: Syphilis IgG/IgM Antibody Negative (Negative)
[2024-11-18 10:09] LABS: Hepatitis B Surface Antigen Negative (Negative); Rubella IgG Antibody 17.1 IU/ML
[2024-11-18 10:10] LABS: HIV 1/2 Ab P24 Ag Result Negative (Negative)
[2024-11-18 10:24] LABS: Hemoglobin A1C 4.7 % (<5.7)
[2024-11-18 10:26] LABS: Hepatitis C Virus Antibody Negative (Negative)
== END 2024-11-18 07:12 | disposition home or self-care (01) ==
PROVIDERS: Visit Provider Obstetrics & Gynecology Gynecology
DX: Z36.9 Encounter for antenatal screening, unspecified (principal); Z3A.00 Weeks of gestation of pregnancy not specified
CPT/HCPCS: 36415; 82306; 82728; 82947; 83036; 84439; 84443; 85025; 86593; 86703; 86762; 86803; 86850; 86900; 86901; 87340; G0432

== ENCOUNTER 2025-01-01 14:09 | Outpatient (RCR) | payer OTHER, SELFPAY ==
[2025-01-01 14:45] VITALS: BP 114/57; PULSE 108
== END 2025-04-01 23:59 | disposition home or self-care (01) ==
LOC: ANHOBOP 14:09
PROVIDERS: Visit Provider Obstetrics & Gynecology Gynecology
DX: O36.5990 Maternal care for other known or suspected poor fetal growth, unspecified trimester, not applicable or unspecified (principal)
CPT/HCPCS: 59025

== ENCOUNTER 2025-01-17 14:31 | Outpatient (CLI) | payer OTHER, SELFPAY ==
--- OUTSIDE RECORDS SUMMARY | 2025-01-17 14:34 | XMS_ITS | Clinical Summary ---
Author Organization [facility] Address [address] [place] [address] Phone Care Team Providers Care Irish Moss Bleacher Name Role Phone Unknown, Notinfile Unavailable Unavailable Unknown, Notinfile Primary Care Provider Unavail able Allergies Active Allergy Reactions Criticality Noted Date Comments Ceftriaxone Dizziness,Other (See comments) Low 11/07/2020 Dizziness/Light Headed numbness Depo-Provera Contraceptive Anaphylaxis High 12/23/2021 Throat closes Medroxyprogest-Estradio l Cyp Unknown 09/05/2021 Penicillin V Anaphylaxis High 07/21/2020 Wasp Venom Anaphylaxis High 07/21/2020 Medications [id number] acid 29 mg iron- 1 mg tablet,chewable [...] 03/12/2020 Assessment & Plan (07/13/2021 8:50 AM DIESEL PILE DRIVER OPERATOR): Follows with neurology, reviewed notes Continue trileptal Major depression in remission 03/12/2020 Assessment & Plan (07/12/2021 3:14 PM DIESEL PILE DRIVER OPERATOR): Stable Continue cymbalta PTSD (post-traumatic stress disorder) [...] week 03/26/2023 How often do you attend [facility] or oriental orthodox services? More than 4 times per year 03/26/2023 Do you belong to any clubs o r organizations such as druze groups, unions, fraternal or athletic groups, or [...] place to sleep or slept in a penitentiary (including now)? No 03/26/2023 Personal Safety Answer Date Recorded Getting School Help Needed Not on file 04/27 Comments No Sex and Gender Information Value Date Recorded Sex Assigned at Not on file Legal Sex Female 6:22 AM DIESEL PILE DRIVER OPERATOR Gender Identity Female 03/11/2020 1:47 PM [...] P M CDT Height 160 cm (5' 3) 11/06/2023 1:20 PM CDT Body Mass Index [...] 2023-2 5 season) 2024 05/30/2021 Influenza Vaccine (Season Ended) 2025 05/14/2021 DTaP/Tdap/Td Vaccine (2 - Td or Tdap) 02/16/2031 02/16/2021 Pneumococcal vaccine <65 Aged Out No longer eligible based on patient's age to complete this topic Procedures Procedure Name Priority Date/Time Associated Diagnosis Comments N. GONORRHOEAE/C. TRACHOMATIS AMPLIFICATION TEST Routine 06/23/2020 5:50 AM DIESEL PILE DRIVER OPERATOR from Last 3 Months or Most Recently Relevant to Health Maintenance Results * N. gonorrhoeae/C. trachomatis amplification test (06/23/2020 5:50 AM DIESEL PILE DRIVER OPERATOR) C. trachomatis RNA TNP M [facility] N. gonorrhoeae RNA TNP [facility] Chlamydia/GC Source URINE [facility] Comment: This assay detects Chlamydia trachomatis and Neisseria gonorrhoeae by nucleic acid amplification testing (NAAT). Disclaimer: This Test is not FDA approved in females less than 14 years of age and in males less than 17 years of age. All positive CT/NG results on non-FDA approved pediatric age group patients have been confirmed positive by repeat testing. 06/23/2020 5:50 AM DIESEL PILE DRIVER OPERATOR 06/23/2020 7:05 AM DIESEL PILE DRIVER OPERATOR Narrative [facility] - 06/23/2020 7:07 AM DIESEL PILE DRIVER OPERATOR Urine collection method First catch lessthan 50ml Collected By or Urine Resulting Agency Comment ER Blanca Casey DO LAB MICROBIOLOGY - GENERAL ORDE SRINIVASA Final Result Performing Organization Address City/State/[facility] Co de Phone Number [facility] [address] [phone] from Last 3 Months or Most Recently Relevant to Health Maintenance Insurance [facility] IDPA IDPA Advance Directives For more information, please contact: [phone] * Full Code (Latest Code Status on File) Date Activated Date Inactivated Comments 03/26/2023 3:25 AM 03/27/2023 5:51 PM Care Teams Irish Moss Bleacher Relationship Specialty Start Date End Date Unknown, Notinfile PCP - General 10/20/22 Unknown, Notinfile 07/12/21
--- OUTSIDE RECORDS SUMMARY | 2025-01-17 14:34 | XMS_ITS | Referral Summary ---
Author Organization [facility] Address [address] [place] [address] Phone Care Team Providers Care Quilt Maker Name Role Phone Unknown, Notinfile Unavailable Unavailable Unknown, Notinfile Primary Care Provider Unavail able Allergies Active Allergy Reactions Criticality Noted Date Comments Ceftriaxone Dizziness,Other (See comments) Low 11/07/2020 Dizziness/Light Headed numbness Depo-Provera Contraceptive Anaphylaxis High 12/23/2021 Throat closes Medroxyprogest-Estradio l Cyp Unknown 09/05/2021 Penicillin V Anaphylaxis High 07/21/2020 Wasp Venom Anaphylaxis High 07/21/2020 Medications [id number] acid 29 mg iron- 1 mg tablet,chewable [...] 03/12/2020 Assessment & Plan (07/13/2021 8:50 AM TABLE LEVER OPERATOR): Follows with neurology, reviewed notes Continue trileptal Major depression in remission 03/12/2020 Assessment & Plan (07/12/2021 3:14 PM TABLE LEVER OPERATOR): Stable Continue cymbalta PTSD (post-traumatic stress [...] week 03/26/2023 How often do you attend [facility] or yazidi services? More than 4 times per year 03/26/2023 Do you belong to any clubs o r organizations such as hindu groups, unions, fraternal or athletic groups, or [...] place to sleep or slept in a prison (including now)? No 03/26/2023 Personal Safety Answer Date Recorded Getting School Help Needed Not on file 04/27 Comments No Sex and Gender Information Value Date Recorded Sex Assigned at Not on file Legal Sex Female 6:22 AM TABLE LEVER OPERATOR Gender Identity Female 03/11/2020 1:47 PM [...] TRACHOMATIS AMPLIFICATION TEST Routine 06/23/2020 5:50 AM TABLE LEVER OPERATOR from Last 3 Months or Most Recently Relevant to Health Maintenance Results * N. gonorrhoeae/C. trachomatis amplification test (06/23/2020 5:50 AM TABLE LEVER OPERATOR) Pathologist [facility] C. trachomatis RNA TNP [facility] N. gonorrhoeae RNA TNP [facility] Chlamydia/GC Source URINE [facility] Comment: This assay detects Chlamydia trachomatis and Neisseria gonorrhoeae by nucleic acid amplification testing (NAAT). Disclaimer: This Test is not FDA approved in females less than 14 years of age and in males less than 17 years of age. All positive CT/NG results on non-FDA approved pediatric age group patients have been confirmed positive by repeat testing. 06/23/2020 5:50 AM TABLE LEVER OPERATOR 06/23/2020 7:05 AM TABLE LEVER OPERATOR Narrative [facility] - 06/23/2020 7:07 AM TABLE LEVER OPERATOR Urine collection method First catch lessthan 50ml Collected By vt Urine Resulting Agency Comment ER us Blanca Casey DO LAB MICROBIOLOGY - GENERAL ORDE [place] [address], [facility] [phone] from Last 3 Months or Most Recently Relevant to Health Maintenance Insurance BLUE [facility] IDFL Advance Directives For more information, please contact: [phone] * Full Code (Latest Code Status on File) Date Activated Date Inactivated Comments 03/26/2023 3:25 AM 03/27/2023 5:51 PM Care Teams Quilt Maker Relationship Specialty Start Date End Date Unknown, Notinfile PCP - General 10/20/22 Unknown, Notinfile 07/12/21
[2025-01-17 14:47] LABS: Basophils Absolute Auto 0.1 K/mm3 (0.0-0.1); Basophils Percent Auto 0.5 % (0.2-1.2); Eosinophils Absolute Auto 0.2 K/mm3 (0-0.3); Eosinophils Percent Auto 2.1 % (0-4.4); Hematocrit 31.1 % (37.0-47.0); Immature Granulocyte Absolute 0.13 K/mm3 (0.00-0.031); Immature Granulocyte Percent A 1.1 % (0-0.5); Lymphocytes Absolute Auto 2.11 K/mm3 (0.9-3.2); Lymphocytes Percent Auto 18.3 % (18.3-44.2); Mean Corpuscular HGB Conc 32.2 g/dl (32-36); Mean Corpuscular Hemoglobin 25.6 pg (26-34); Mean Corpuscular Volume 79.7 fl (80-100); Mean Platelet Volume 8.7 fl (7.4-10.4); Monocytes Absolute Auto 0.8 K/mm3 (0.1-0.6); Monocytes Percent Auto 7.2 % (2.6-8.5); Neutrophils Absolute Auto 8.2 K/mm3 (1.3-6.7); Neutrophils Percent Auto 70.8 % (45.5-73.1); Platelet Count Result 307 k/mm3 (150-375); Red Cell Distribution Width 14.4 % (11.5-14.5); White Blood Count 11.6 K/mm3 (4.5-10.0)
[2025-01-17 15:30] LABS: Syphilis IgG/IgM Antibody Negative (Negative)
[2025-01-17 15:39] LABS: HIV 1/2 Ab P24 Ag Result Negative (Negative)
== END 2025-01-17 14:32 | disposition home or self-care (01) ==
LOC: ANHOBOP 14:33
PROVIDERS: Visit Provider Obstetrics & Gynecology Gynecology
DX: Z34.93 Encounter for supervision of normal pregnancy, unspecified, third trimester (principal); Z3A.00 Weeks of gestation of pregnancy not specified
CPT/HCPCS: 36415; 85025; 86593; 86703; 86850; 86900; 86901; G0432

== ENCOUNTER 2025-01-19 05:30 | Inpatient (IN) | payer OTHER, SELFPAY ==
[2025-01-19] VITALS (58 sets, daily range): BP systolic 92–116; BP diastolic 54–74; PULSE 45–81; RESP 10–21; TEMP 36.1–36.7; O2SAT 96–100; BMI 24.5
--- NOTE | ~2025-01-19 | XR_ITS ---
EXAMINATION: XR chest 2V 01/21/2025 12:49 INDICATION: Chest pain PROCEDURE: 2 view chest COMPARISON: 10/25/2023 FINDINGS: The lungs are clear. The cardiomediastinal silhouette is within normal limits. There are no pleural effusions. There is no pneumothorax suspected. IMPRESSION: 1: NO ACUTE CARDIOPULMONARY DISEASE. Reviewed, dictated and finalized at location A.
--- OUTSIDE RECORDS SUMMARY | 2025-01-19 05:35 | XMS_ITS | Clinical Summary ---
Author Organization [facility] Address [address] [place] [address] Phone Care Team Providers Care Employment Law Attorney Name Role Phone Unknown, Notinfile Unavailable Unavailable Unknown, Notinfile Primary Care Provider Unavail able Allergies Active Allergy Reactions Criticality Noted Date Comments Ceftriaxone Dizziness,Other (See comments) Low 11/07/2020 Dizziness/Light Headed numbness Depo-Provera Contraceptive Anaphylaxis High 12/23/2021 Throat closes Medroxyprogest-Estradio l Cyp Unknown 09/05/2021 Penicillin V Anaphylaxis High 07/21/2020 Wasp Venom Anaphylaxis High 07/21/2020 Medications [id number]-[id number] acid 29 mg iron- 1 mg tablet,chewable [...] 03/12/2020 Assessment & Plan (07/13/2021 8:50 AM EMBROIDERY SUPERVISOR): Follows with neurology, reviewed notes Continue trileptal Major depression in remission 03/12/2020 Assessment & Plan (07/12/2021 3:14 PM EMBROIDERY SUPERVISOR): Stable Continue cymbalta PTSD (post-traumatic stress disorder) [...] week 03/26/2023 How often do you attend [facility] or scientologist services? More than 4 times per year 03/26/2023 Do you belong to any clubs o r organizations such as sabianism groups, unions, fraternal or athletic groups, or [...] on file Legal Sex Female 6:22 AM EMBROIDERY SUPERVISOR Gender Identity Female 03/11/2020 1:47 PM [...] TRACHOMATIS AMPLIFICATION TEST Routine 06/23/2020 5:50 AM EMBROIDERY SUPERVISOR from Last 3 Months or Most Recently Relevant to Health Maintenance Results * N. gonorrhoeae/C. trachomatis amplification test (06/23/2020 5:50 AM EMBROIDERY SUPERVISOR) C. trachomatis RNA TNP [facility] N. gonorrhoeae RNA TNP [facility] Chlamydia/GC Source URINE [facility] Comment: This assay detects Chlamydia trachomatis and Neisseria gonorrhoeae by nucleic acid amplification testing (NAAT). Disclaimer: This Test is not FDA approved in females less than 14 years of age and in males less than 17 years of age. All positive CT/NG results on non-FDA approved pediatric age group patients have been confirmed positive by repeat testing. 06/23/2020 5:50 AM EMBROIDERY SUPERVISOR 06/23/2020 7:05 AM EMBROIDERY SUPERVISOR Narrative [facility] - 06/23/2020 7:07 AM EMBROIDERY SUPERVISOR Urine collection method First catch lessthan 50ml Collected By ca Urine Resulting Agency Comment ER Blanca Casey DO LAB MICROBIOLOGY - GENERAL ORDE SRINIVASA Final Result Performing Organization Address City/State/[facility] Co de Phone Number [facility] [address] [phone] from Last 3 Months or Most Recently Relevant to Health Maintenance Insurance [facility] IDPA IDPA Advance Directives For more information, please contact: [phone] * Full Code (Latest Code Status on File) Date Activated Date Inactivated Comments 03/26/2023 3:25 AM 03/27/2023 5:51 PM Care Teams Employment Law Attorney Relationship Specialty Start Date End Date Unknown, Notinfile PCP - General 10/20/22 Unknown, Notinfile 07/12/21
--- OUTSIDE RECORDS SUMMARY | 2025-01-19 05:35 | XMS_ITS | Referral Summary ---
Author Organization [facility] Address [address] [place] [address] Phone Care Team Providers Care Snowmaker Name Role Phone Unknown, Notinfile Unavailable Unavailable Unknown, Notinfile Primary Care Provider Unavail able Allergies Active Allergy Reactions Criticality Noted Date Comments Ceftriaxone Dizziness,Other (See comments) Low 11/07/2020 Dizziness/Light Headed numbness Depo-Provera Contraceptive Anaphylaxis High 12/23/2021 Throat closes Medroxyprogest-Estradio l Cyp Unknown 09/05/2021 Penicillin V Anaphylaxis High 07/21/2020 Wasp Venom Anaphylaxis High 07/21/2020 Medications [id number] acid 29 mg iron- 1 mg tablet,chewable [...] 03/12/2020 Assessment & Plan (07/13/2021 8:50 AM COPY LATHE OPERATOR): Follows with neurology, reviewed notes Continue trileptal Major depression in remission 03/12/2020 Assessment & Plan (07/12/2021 3:14 PM COPY LATHE OPERATOR): Stable Continue cymbalta PTSD (post-traumatic stress [...] week 03/26/2023 How often do you attend [facility] or denominational services? More than 4 times per year 03/26/2023 Do you belong to any clubs o r organizations such as shinto groups, unions, fraternal or athletic groups, or [...] place to sleep or slept in a snf (including now)? No 03/26/2023 Personal Safety Answer Date Recorded Getting School Help Needed Not on file 04/27 Comments No Sex and Gender Information Value Date Recorded Sex Assigned at Not on file Legal Sex Female 6:22 AM COPY LATHE OPERATOR Gender Identity Female 03/11/2020 1:47 PM [...] TRACHOMATIS AMPLIFICATION TEST Routine 06/23/2020 5:50 AM COPY LATHE OPERATOR from Last 3 Months or Most Recently Relevant to Health Maintenance Results * N. gonorrhoeae/C. trachomatis amplification test (06/23/2020 5:50 AM COPY LATHE OPERATOR) Pathologist [facility] C. trachomatis RNA TNP [facility] N. gonorrhoeae RNA TNP [facility] Chlamydia/GC Source URINE [facility] Comment: This assay detects Chlamydia trachomatis and Neisseria gonorrhoeae by nucleic acid amplification testing (NAAT). Disclaimer: This Test is not FDA approved in females less than 14 years of age and in males less than 17 years of age. All positive CT/NG results on non-FDA approved pediatric age group patients have been confirmed positive by repeat testing. 06/23/2020 5:50 AM COPY LATHE OPERATOR 06/23/2020 7:05 AM COPY LATHE OPERATOR Narrative [facility] - 06/23/2020 7:07 AM COPY LATHE OPERATOR Urine collection method First catch lessthan 50ml Collected By id Urine Resulting Agency Comment ER us Blanca Casey DO LAB MICROBIOLOGY - GENERAL ORDE [place] [address], [facility] [phone] from Last 3 Months or Most Recently Relevant to Health Maintenance Insurance BLUE ACCESS [place] [facility] IDOR Advance Directives For more information, please contact: [phone] * Full Code (Latest Code Status on File) Date Activated Date Inactivated Comments 03/26/2023 3:25 AM 03/27/2023 5:51 PM Care Teams Snowmaker Relationship Specialty Start Date End Date Unknown, Notinfile PCP - General 10/20/22 Unknown, Notinfile 07/12/21
[2025-01-19] MEDS: LACTATED RINGERS 1,000 ML 125 ML IV CONT (06:00)
[2025-01-19] MEDS: ACETAMINOPHEN 500 MG TABLET 1000 MG PO (06:02)
--- NOTE | 2025-01-19 06:23 | LDADM ---
This patient, Lorri Ernandez, was admitted to Labor/Delivery/Recovery 120 on 01/19/25 at 05:30. Plans for labor, pain management and were discussed with patient. Patient/family oriented to hospital policies and general routines including ID bracelet, bed and alarms, visiting hours, pain management, procedures, bathroom and other care routines, personal items, smoking policy, room service/diet and guest tray routines, security routines, and visiting hours. Patient/Family are encouraged to report perceived risks to care and to ask questions if they do not understand what they are told or what they should do. See [facility] for further documentation.
[2025-01-19 06:40] LABS: Syphilis IgG/IgM Antibody Negative (Negative)
[2025-01-19 06:53] LABS: HIV 1/2 Ab P24 Ag Result Negative (Negative)
[2025-01-19] MEDS: ONDANSETRON INJ 4 MG/2 ML VIAL IV PUSH (07:01)
--- NOTE | 2025-01-19 07:01 | WPDANESEPPF ---
Anes - Initial Pre Proc Eval Procedure: Operation Date: 01/19/25 07:30 Proposed Procedures p Repeat Section - Zo Merchant MD Date/Time: 01/19/25 07:01 Surgeon: Zo Merchant MD Pre Op Diagnosis: Patient Data Age: 24 Gender: F Height: 1.6 m Weight: 63 kg Last Vital Signs Pulse 69 01/19/25 06:46 BP 114/68 01/19/25 06:46 O2 Del Method Room Air 01/19/25 06:24 Allergies Allergy/AdvReac Type Severity Reaction Status Date / Time ceftriaxone (From Rocephin) Allergy Numbness Verified 01/19/25 06:21 Penicillins Allergy Swelling Verified 01/19/25 06:21 of Lip/Tongue/Throat prochlorperazine (From Allergy Palpitation Verified 01/19/25 06:21 Compazine) s metoclopramide (From Reglan) AdvReac Mild Rapid Verified 01/19/25 06:21 heart rate depo vera Allergy Severe Anaphylactic Uncoded 01/19/25 06:21 Shock Home Medications ?Medication ?Instructions ?Recorded ?Confirmed ?Type ergocalciferol (vitamin D2) 1,250 01/17/25 History mcg (50,000 unit) capsule qadfqqol-yqw-Td-FA 1 mg tablet PO 01/17/25 History tablet Laboratory Tests 01/19/25 05:55 Syphilis IgG/IgM Ab Negative (Negative) HIV 1&2 Ab/P24 Ag 4thGn Negative (Negative) Patient hx anesthesia problems: none Family hx anesthesia problems: none Results Review: All pre-operative results and documents have been reviewed as part of the pre-operative evaluation. FOR[facility] Past Medical History Medical History Hyperthyroidism Depression Posttraumatic stress disorder Postural orthostatic tachycardia syndrome In early Epilepsy Surgical History Surgical History History of section History of eye surgery Family History Family History Sibling Autism Heart murmur Mother Epilepsy Heart murmur Social History Social History Social History: Surrogate medical decision maker: Loki Ernandez, spouse. Code status: Full code. Smoking status: Never smoker Second hand tobacco smoke exposure: No Alcohol intake: never Substance use: never Do You Feel Safe in your Home?: Yes Lack of Transportation: No Lack of Food: Never True Current Housing: I Have Housing Concerned About Future Housing: No Difficulty Paying Gas/Electric Bills: No Difficulty Paying for Meds: No Currently Unemployed: No Education: Trade/Vocational Certificate Difficulty w/ Childcare or Family Care: No Spiritual care concerns: No Anes - Eval Final PreProcedure Day of Procedure 01/19/25 07:01 Patient weight: normal Heart: regular rate and rhythm Lungs: clear to auscultation Airway: Mallampati scale class II and special considerations poor dentition Last oral intake: >/= 8 hours ASA classification: II Emergent: no Anesthetic plan: proceed Anesthesia type and monitoring: regional spinal and standard monitoring Results Review: All pre-operative results and documents have been reviewed as part of the pre-operative evaluation. Informed Consent: The patient's anesthetic plan and its attendant risks and benefits were discussed with the patient/family/POA. Questions were solicited and answers provided to the satisfaction of the patient/family/POA.
[2025-01-19] MEDS: FAMOTIDINE 20 MG/2 ML VIAL IV PUSH (07:02)
--- NOTE | 2025-01-19 07:17 | WPDHPUPDATE1 ---
History and Physical Update Update Date/Time: 01/19/25 07:17 History and Physical has been reviewed, including an updated exam of the patient. There are NO changes in the patient's condition. Risks, benefits, and alternatives have been discussed and questions answered. Patient agrees to proceed with procedure.
--- NOTE | 2025-01-19 07:18 | PM.IMHP ---
H&P: HPI History of Present Illness Date/Time: 01/19/25 07:18 Chief Complaint: Repeat Intrauterine growth restriction 37 and 3/7 weeks Narrative: The patient is a 24-year-old 3 para 2 aborta 1 being admitted for repeat section secondary to previous section and declining . The patient's has been complicated by intrauterine growth restriction ranging from 3 to 10%. Dopplers have been normal on the most recent ultrasound had been elevated ultrasounds. Patient was been followed by [facility] Maternal- medicine and they have recommended delivery at between 37 and 38 weeks. labs A negative, RPR negative, hepatitis-B surface antigen negative, rubella immune, HIV negative, and group B strep negative. Review of Systems Review of Systems: not repeated day of surgery; patient states no changes in status PMFSH Past Medical History Medical History (Updated 01/19/25 @ 07:23 by Zo Merchant MD) Hyperthyroidism Depression Posttraumatic stress disorder Postural orthostatic tachycardia syndrome In early Epilepsy Surgical History Surgical History (Updated 01/19/25 @ 07:23 by Zo Merchant MD) History of section History of eye surgery Family History Family History Sibling Autism Heart murmur Mother Epilepsy Heart murmur Social History Social History Social History: Surrogate medical decision maker: Loki Ernandez, spouse. Code status: Full code. Smoking status: Never smoker Second hand tobacco smoke exposure: No Alcohol intake: never Substance use: never Do You Feel Safe in your Home?: Yes Lack of Transportation: No Lack of Food: Never True Current Housing: I Have Housing Concerned About Future Housing: No Difficulty Paying Gas/Electric Bills: No Difficulty Paying for Meds: No Currently Unemployed: No Education: Trade/Vocational Certificate Difficulty w/ Childcare or Family Care: No Spiritual care concerns: No Meds Home Medications and Allergies Home Medications ?Medication ?Instructions ?Recorded ?Confirmed ?Type ergocalciferol (vitamin D2) 1,250 01/17/25 History mcg (50,000 unit) capsule dlawyhfi-nlz-Hx-FA 1 mg tablet PO 01/17/25 History tablet Allergies Allergy/AdvReac Type Severity Reaction Status Date / Time ceftriaxone (From Rocephin) Allergy Numbness Verified 01/19/25 06:21 Penicillins Allergy Swelling Verified 01/19/25 06:21 of Lip/Tongue/Throat prochlorperazine (From Allergy Palpitation Verified 01/19/25 06:21 Compazine) s metoclopramide (From Reglan) AdvReac Mild Rapid Verified 01/19/25 06:21 heart rate depo vera Allergy Severe Anaphylactic Uncoded 01/19/25 06:21 Shock Vital Signs Vital Signs - 24 hr 01/19/25 05:49 01/19/25 06:01 01/19/25 06:16 Pulse Rate 81 80 79 Blood Pressure 116/70 110/69 108/72 Oxygen Delivery 01/19/25 06:24 01/19/25 06:31 01/19/25 06:46 Pulse Rate 67 69 Blood Pressure 114/68 114/68 Oxygen Delivery Room Air 01/19/25 07:17 Pulse Rate 66 Blood Pressure 114/69 Oxygen Delivery Exam Const: General: healthy appearing and comfortable Resp: Effort & Inspection: normal respiratory effort GI: GI Palp: Yes Other GI palpation findings present (FH 32 cm) Auscultation: other ( heart tones reactive) Assessment and Plan Assessment and plan (1) 37 or more weeks gestation of : Status: Acute Assessment and Plan: 37 and 10/24 (2) Intrauterine growth restriction, : Code(s): O36.5990 - Maternal care for other known or suspected poor growth, unspecified trimester, not applicable or unspecified Status: Acute Assessment and Plan: Per Maternal Medicine plan delivery between 37 and 38 weeks (3) History of section: Code(s): Z98.891 - History of uterine scar from previous surgery Status: Acute Assessment and Plan: Proceed with repeat section
[2025-01-19] MEDS: CLINDAMYCIN 900 MG/D5W 50 ML 900 MG/50 ML PIGGYBACK 50 MG IVPB (07:36)
--- NOTE | 2025-01-19 08:32 | W.PM.OBCSD ---
OB - Delivery Note Procedure Delivery date: 01/19/25 Pre-op diagnosis: Intrauterine Growth Restriction (IUGR), Previous Delivery and Other (37 3/7 weeks) Post-op Diagnosis: Same Induction method: None Delivery monitor: External FHT and External Uterine Prior to decision for section, ACOG/SM labor guidelines were considered and discussed with the patient and staff. Decision made to proceed with the section.: Yes Procedure Performed: Repeat Secondary branch: low cervical, transverse Surgeon: Zo Merchant MD Anesthesia type: Spinal Description of Procedure/Findings: The patient was taken to the operating and placed under anesthesia in the dorsal supine position with a leftward tilt. Once anesthesia was deemed adequate, she was prepped and draped in the usual sterile fashion. A Pfannenstiel skin incision was made through her prior incision and carried down to the fascia. The fascia was nicked in the midline with a scalpel and extended laterally using Palacios scissors. Ochsner was used to tent the fascia which was then dissected off using sharp and blunt dissection. The rectus muscles are in the midline and the peritoneum tented and entered with Metzenbaum scissors. The incision was extended with blunt traction. The vesicouterine peritoneum was tented and entered with Metzenbaum scissors. The bladder flap was created digitally. The bladder blade was replaced. The lower uterine segment was noted to be very thin and the hair was visible through the incision. The incision was incised with a scalpel in a transverse fashion and extended laterally using blunt traction. Membranes are ruptured at the time of the incision. The 's head was brought up into the incision and delivered while the legal administrative assistant applied fundal pressure. The remainder of the delivered quickly. Cord clamping was delayed. The cord was then clamped and cut and the handed to the waiting pediatric team. The cord gases and cord blood were taken. The placenta was removed using manual traction. The uterus is cleared of all clots and debris and exteriorized. The uterine incision was closed using 0 Monocryl in a running locked fashion. Same suture was used to imbricate. Good hemostasis was noted. The cul-de-sac was irrigated and the uterus returned to the abdomen. The gutters are irrigated. The incision was again inspected and noted to be hemostatic. The tubes and ovaries are inspected and noted to be normal. The fascia was closed using 0 Vicryl in a running fashion. Subcutaneous tissues were irrigated and made hemostatic using Bovie cautery. Skin was closed using 4 0 Vicryl in a subcuticular fashion. Sponge, needle, and instrument counts are correct per the OR staff. Patient was given antibiotics prior to incision. Specimen: Yes ( Placenta) Estimated Blood Loss: 85 Drains: Yes ( Jaime catheter) Packing: No Pathology: Yes ( placenta) Complications: No immediate complications Condition: Stable Disposition: [place] Baby Date of : 01/19/25 Gestational Age by Date: 37 (37 10/24) gender: Female Weight (pounds): 5 Weight (ounces): 2 presentation: vertex position: Right Occiput Anterior Placenta delivery description: Spontaneous Cord Vessel Description: 3 Vessels and Delayed Cord Clamping score one minute: 7 score five minutes: 9
--- NOTE | 2025-01-19 08:42 | PM.OBDSVD ---
DS: Admitting Diagnosis Discharge Date 01/21/25 Admitting Diagnosis intrauterine at 37 and 3/7 previous section intrauterine growth restriction DS: Discharge Diagnosis Discharge Diagnosis (1) Delivery by section using transverse incision of lower segment of uterus: Code(s): O82 - Encounter for delivery without indication Status: Acute OB - DS: Summary OB Procedures : NST and Ultrasound OB Procedures Intrapartum: low cervical, transverse OB Procedures: : None Peripartum Data Infant Delivery Method: Section Laceration Description: None Procedures: Procedures Operation Date: 01/19/25 07:30 <No data on this case meets the specified criteria> complications: none Status at Discharge Functional status at discharge: independent ambulation Overall status at discharge: patient is progressing back to baseline Time Spent with Patient Time attestation: Total time spent providing and/or coordinating discharge services: DS: Data Data Completed and Pending Labs on day of discharge: Labs from last 24 hours 01/19/25 05:55 Syphilis IgG/IgM Ab Negative HIV 1&2 Ab/P24 Ag 4thGn Negative Discharge Plan Discharge Attending physician on discharge: Zo Merchant Discharging Clinician: Zo Merchant Anticipated Discharge Date/Time: 01/22/25 08:44 Patient Disposition: Home Activity: may shower and pelvic rest Diet: regular Wound Care Instructions: incision open to air Patient Instructions: Antibiotic Form Patient Language: Yoruba Stand Alone Forms: General Discharge Information Follow-up/Referrals: Zo Merchant MD [Physician] - 1 Week ( and 6 weeks) Discharge Medications: New hydrocodone-acetaminophen 5-325 mg tablet 1 tablet PO Q4H PRN (Reason: pain) Qty: 5 0RF norethindrone (contraceptive) 0.35 mg tablet 0.35 mg PO DAILY Qty: 84 3RF Continued uwyvvvqb-oje-Gb-FA 1 mg tablet PO ergocalciferol (vitamin D2) 1,250 mcg (50,000 unit) capsule Date of admission: 01/19/25 05:30 Primary Care Provider: UNKNOWN,DOCTOR Admitting Provider: Zo Merchant Attending physician on admission: Zo Merchant Condition: Stable
--- NOTE | 2025-01-19 09:32 | S_PTH ---
PATIENT: Lorri Enrandez LOC: [facility] U#:[id number] AGE/SX: 24/F ROOM: 282 RE01/19/[address]: Zo Merchant MD : 2000 BED: 00 DIS: 01/21/2025 SPEC #: [id number] RECD: 01/20/25 07:54 STATUS: KAMAR RETung #: [id number] KELI: 01/19/25 09:[address]: Zo Merchant DEPT: [facility] Surgical RECD BY: Brandan Medeiros ENTERED: 01/20/25 07:54 SP TYPE: Surgical OTHR DR: UNKNOWN,DOCTOR Tissues: A - Placenta Procedures: Hematoxylin and Eosin Stain Gross and Microscopic Level 5
[2025-01-19] MEDS: OXYTOCIN 30 UNITS/NS 500 ML 30 UNITS/500 ML BAG 125 UNITS IV CONT (10:49)
--- NOTE | 2025-01-19 11:45 | OBPPTRN ---
Patient transferred to post room #282 via (stretcher). Support person present. Oriented to unit, room, information board, rooming in, admission packet and security measures. Patient verbalizes understanding.
[2025-01-19] MEDS: DOCUSATE SODIUM 100 MG CAPSULE PO ×2 (12:14→17:30)
[2025-01-19] MEDS: SIMETHICONE 80 MG TAB.CHEW PO ×2 (12:14→17:30)
[2025-01-19] MEDS: ACETAMINOPHEN 325 MG TABLET 650 MG PO ×2 (12:15→18:46)
[2025-01-19] MEDS: KETOROLAC 15 MG/ML VIAL (*BKC) IV PUSH ×2 (12:15→18:47)
[2025-01-19] MEDS: MULTIVIT/MIN/PREN/FOL AC/IRON TABLET 1 TAB PO (12:16)
[2025-01-19] MEDS: LIDOCAINE 5% PATCH 1 PATCH TRANSDERM (12:45)
--- NOTE | 2025-01-19 14:05 | PC.NURSE ---
Met with patient regarding needs. She is planning to pump and bottle feed like she did with her other children. She has her own breast pump at home that someone is going to bring to her. She knows that we have hospital pumps available if needed. Encouraged consistency with pumping to promote best possible milk supply. Mom remembers how to develop a good routine and doesn't have any further questions or concerns.
--- NOTE | 2025-01-19 16:20 | PC.NURSE ---
Patient off unit in level 2 nursery visiting . Patient taken to level 2 nursery via wheelchair by this RN.
[2025-01-19] MEDS: POLYSACCHARIDE IRON COMPLEX 150 MG CAPSULE PO (17:30)
--- NOTE | 2025-01-19 18:00 | PC.NURSE ---
Patient back on unit - sitting at bedside.
--- NOTE | 2025-01-19 20:04 | PC.NURSE ---
Pt ambulatory with spouse at side to [facility] 2 nursery at this time to visit with infant
[2025-01-20] MEDS: ACETAMINOPHEN 325 MG TABLET 650 MG PO ×4 (02:08→18:19)
[2025-01-20] MEDS: KETOROLAC 15 MG/ML VIAL (*BKC) IV PUSH ×2 (02:09→08:05)
[2025-01-20 04:57] LABS: Basophils Absolute Auto 0.1 K/mm3 (0.0-0.1); Basophils Percent Auto 0.5 % (0.2-1.2); Eosinophils Absolute Auto 0.2 K/mm3 (0-0.3); Eosinophils Percent Auto 1.9 % (0-4.4); Hematocrit 29.4 % (37.0-47.0); Hemoglobin 9.2 g/dL (12.0-15.0); Immature Granulocyte Absolute 0.09 K/mm3 (0.00-0.031); Immature Granulocyte Percent A 0.8 % (0-0.5); Lymphocytes Absolute Auto 2.41 K/mm3 (0.9-3.2); Lymphocytes Percent Auto 20.4 % (18.3-44.2); Mean Corpuscular HGB Conc 31.3 g/dl (32-36); Mean Corpuscular Hemoglobin 25.6 pg (26-34); Mean Corpuscular Volume 81.9 fl (80-100); Mean Platelet Volume 9.2 fl (7.4-10.4); Monocytes Percent Auto 8.4 % (2.6-8.5); Neutrophils Absolute Auto 8.1 K/mm3 (1.3-6.7); Platelet Count Result 252 k/mm3 (150-375); Red Blood Count 3.59 M/mm3 (4.2-5.4); Red Cell Distribution Width 14.7 % (11.5-14.5); White Blood Count 11.8 K/mm3 (4.5-10.0)
--- NOTE | 2025-01-20 07:40 | P.PNOB_ITS ---
OB - PN: Subj Subjective Date/time seen: 01/20/25 07:40 Patient comments: no complaints and pain well controlled baby status: doing well OB - PN: Obj Data Labs 01/20/25 04:17 Labs: Laboratory Results - last 24 hr 01/20/25 04:17 WBC 11.8 H RBC 3.59 L Hgb 9.2 L Hct 29.4 L MCV 81.9 MCH 25.6 L MCHC 31.3 L RDW 14.7 H Plt Count 252 MPV 9.2 Immature Gran % (Auto) 0.8 H Neut % (Auto) 68.0 Lymph % (Auto) 20.4 [place] % (Auto) 8.4 Eos % (Auto) 1.9 Baso % (Auto) 0.5 Lymph # (Auto) 2.41 [place] # (Auto) 1.0 H Eos # (Auto) 0.2 Baso # (Auto) 0.1 Abs Immat Gran (auto) 0.09 H Absolute Neuts (auto) 8.1 H Absolute Nucleated RBC 0.000 Nucleated RBC % 0.0 OB - PN A/P Plan day: 1 Plan: routine care Time Spent With Patient Time: Total time spent is greater than 50% in coordination of care (as documented) at patient's floor/unit and/or counseling patient: Exam 2 Narrative: inc c/d/i : Bimanual exam- vagina & uterus: other (Uterus firm, nt @U)
[2025-01-20 08:00] VITALS: BP 106/66; PULSE 65; RESP 16; TEMP 36.8; O2SAT 100
[2025-01-20] MEDS: POLYSACCHARIDE IRON COMPLEX 150 MG CAPSULE PO ×2 (08:06→17:05)
[2025-01-20] MEDS: SIMETHICONE 80 MG TAB.CHEW PO ×3 (08:06→17:05)
[2025-01-20] MEDS: LIDOCAINE 5% PATCH 1 PATCH TRANSDERM (08:07)
[2025-01-20] MEDS: MULTIVIT/MIN/PREN/FOL AC/IRON TABLET 1 TAB PO (10:39)
[2025-01-20] MEDS: DOCUSATE SODIUM 100 MG CAPSULE PO ×2 (10:39→17:05)
--- NOTE | 2025-01-20 10:43 | WPDANLDPN2 ---
Anes-Prog Note L&D Date/Time: 01/20/25 10:43 Comfortable throughout: section Neuraxial method: spinal Epidural/Spinal procedure site: erythematous Neuro status: Neuro function grossly intact. Cardiovascular status: normal Respiratory status: normal Airway patency: baseline Mental status: baseline Vital Signs: Last Vital Signs Temp 36.8 C 01/20/25 08:00 Pulse 65 01/20/25 08:00 Resp 16 01/20/25 08:00 BP 106/66 01/20/25 08:00 Pulse Ox 100 01/20/25 08:00 O2 Del Method Room Air 01/19/25 20:55 Pain score (VAS): 3 I/O: Intake & Output 01/19/25 01/20/25 01/20/25 23:59 07:59 15:59 Intake Total 120 Output Total 275 600 Balance -155 -600 Patient feedback: Patient satisfied with anesthetic care.
--- NOTE | 2025-01-20 10:43 | WPDANLDNPN2 ---
Anes-Prog Note L&D-Neuraxial Date/Time: 01/20/25 10:43 Neuraxial medications: intrathecal PF morphine Opiod-related complaints: none Patient feedback: Patient satisfied with post-operative pain management.
[2025-01-20] MEDS: IBUPROFEN 600 MG TABLET PO ×2 (12:36→18:19)
[2025-01-20] MEDS: HYDROcodone/acetaminophen (*CRX) 10-325 MG TABLET 1 TAB PO (14:59)
[2025-01-20 20:17] VITALS: BP 110/72; PULSE 59; RESP 14; TEMP 36.6; O2SAT 99
[2025-01-21] MEDS: IBUPROFEN 600 MG TABLET PO ×4 (00:22→18:57)
[2025-01-21] MEDS: HYDROcodone/acetaminophen (*CRX) 5-325 MG TABLET 1 TAB PO (00:22)
[2025-01-21] MEDS: ACETAMINOPHEN 325 MG TABLET 650 MG PO ×4 (00:23→18:57)
[2025-01-21] MEDS: DOCUSATE SODIUM 100 MG CAPSULE PO (07:04)
[2025-01-21] MEDS: POLYSACCHARIDE IRON COMPLEX 150 MG CAPSULE PO (07:05)
[2025-01-21] MEDS: SIMETHICONE 80 MG TAB.CHEW PO ×2 (07:05→12:35)
[2025-01-21] MEDS: MULTIVIT/MIN/PREN/FOL AC/IRON TABLET 1 TAB PO (07:05)
[2025-01-21 07:20] VITALS: BP 106/63; PULSE 65; RESP 18; TEMP 37; O2SAT 100
--- NOTE | 2025-01-21 08:09 | P.PNOB_ITS ---
OB - PN: Subj Subjective Date/time seen: 01/21/25 08:09 Interval history: Patient concerned with pneumonia. Ptn has pneumonia and she developed upped chest pain. No cough or fevers. Patient comments: pain well controlled and other (c/o upper chest pain) baby status: doing well Narrative: Plans POP until OB - PN: Obj Data Labs 01/20/25 04:17 OB - PN A/P Assessment and Plan (1) Chest pain: Code(s): R07.9 - Chest pain, unspecified Status: Acute Assessment and Plan: check CXR no other signs or symptoms more for peace of mind as patient quiet anxious about it Plan day: 2 Plan: routine care, discharge home (if infant ready to dc), follow up 6 weeks (and 1 week) and other (plans POP until ) Time Spent With Patient Time: Total time spent is greater than 50% in coordination of care (as documented) at patient's floor/unit and/or counseling patient: Exam 2 Const: General: comfortable and no acute distress Resp: Effort & Inspection: normal respiratory effort Auscultation: clear to auscultation bilaterally : Bimanual exam- vagina & uterus: other (Uterus firm, nt @U)
--- NOTE | 2025-01-21 12:30 | PC.NURSE ---
Patient off unit to radiology. Patient taken by via wheelchair by Isa (Clip On Sunglasses Inspector).
--- NOTE | 2025-01-21 12:50 | PC.NURSE ---
Patient back on unit in room.
[2025-01-21] MEDS: HYDROcodone/acetaminophen (*CRX) 10-325 MG TABLET 1 TAB PO (14:10)
--- NOTE | 2025-01-21 16:20 | PC.NURSE ---
1610- Met with mom to discuss and follow up with needs. She reports she is still planning on pumping and feeding . She is currently using her Motif pump she brought from home. She requested to be remeasured for the correct flange sizing, she measured at a size 18 bilaterally. She reports that the wash and greaser switched back from 22 benjy enfacare this morning to enfamil to see if is able to keep her blood sugars up. Mom is pumping colostrum at this time and feeding that along with formula to infant she reports about 20-25 ml per feeding at this time. No further questions at this time, reported to the primary RN.
[2025-01-23 11:25] VITALS: BP 126/87; PULSE 83; RESP 18; TEMP 36.7; O2SAT 98
== END 2025-01-21 19:00 | disposition home or self-care (01) | DRG 540 ==
LOC: ANHLDR 08:45 → ANHOB2 11:39
PROVIDERS: Admitting Provider Obstetrics & Gynecology Gynecology; Visit Provider Obstetrics & Gynecology Gynecology
PROC: 10D00Z1 Extraction of Products of Conception, Low, Open Approach (ICD-10-PCS; CPT 59514; principal; 2025-01-19 07:30)
DX: O34.211 Maternal care for low transverse scar from previous cesarean delivery (principal); Z37.0 Single live birth; Z3A.37 37 weeks gestation of pregnancy; O36.5930 Maternal care for other known or suspected poor fetal growth, third trimester, not applicable or unspecified; O99.893 Other specified diseases and conditions complicating puerperium; R07.9 Chest pain, unspecified
CPT/HCPCS: 36415; 71046; 85025; 86593; 86703; 88307; A9270; G0432; J1885; J2274; J2405; J2590; J7120